=== PATIENT | female | born 1970 | race Caucasian/White ===

== ENCOUNTER 2016-07-01 08:57 | Emergency (ER) | payer OTHER ==
[~2016-07-01] VITALS: Ht 162.6 cm; Wt 112.0 kg
[~2016-07-01 08:57] MED LIST: ADDE5CAP PO; BUSPIRONE HCL; CELE100C PO; CELEBREX; CETI10CH PO; FERR28TA PO; FLON0.054; GABA300C3 PO; HYDR-727 PO; HYDR10T PO; HYDR12.55 PO; K-TA1TAB PO; LISI10TA4 PO; LISIPOW PO; LYRI100C10 PO; MAGN400T2 PO; METF1000 PO; METFORMIN PO; MIRA3350 PO; MULTLIQ7 PO; NEXI20CA PO; PERC5TAB6 PO; SERO1TAB PO; SEROQUEL; TIZA4CAP3 PO; TIZANIDINE HCL; VITA50003 PO; ZOFR20TA PO
[2016-07-01] MEDS ORDERED: SERO1TAB3 PO (09:25)
[2016-07-01] MEDS ORDERED: RANI75TA9 PO (09:25)
[2016-07-01] MEDS ORDERED: NEXI20CA PO (09:25)
[2016-07-01] MEDS ORDERED: LEFL1TAB4 PO (09:25)
[2016-07-01] MEDS ORDERED: MIRA3350 PO (09:25)
[2016-07-01] MEDS ORDERED: CEFTAROLINE FOSAMIL 600 MG in D5W MINI-BAG PLUS 50 ML IV ONE (09:45)
[2016-07-01 10:14] LABS: BASO % 0.4 % (0.0-1.0); EOS # 0.4 K/mm3 (0.0-0.50); EOS % 3.3 % (0.0-3.0); LARGE UNSTAINED CELL # 0.1 K/mm3 (0.0-0.4); LARGE UNSTAINED CELL % 0.9 % (0.0-4.0); LYMPH # 1.5 K/mm3 (1.5-4.5); LYMPH % 12.3 % (24.0-44.0); MEAN CORPUSCULAR HEMOGLOBIN 32.5 pg (27.0-33.0); MEAN CORPUSCULAR VOLUME 92.9 fl (80.0-96.0); MONO # 0.5 K/mm3 (0.0-0.8); MONO % 4.8 % (0.0-5.0); NEUTROPHILS # 8.8 K/mm3 (1.8-7.7); NEUTROPHILS % 78.3 % (36.0-66.0); PLATELET COUNT, AUTOMATED 249 k/mm3 (150-450); RED CELL DISTRIBUTION WIDTH 11.8 % (11.5-14.5); WHITE BLOOD COUNT 11.2 K/mm3 (4.0-10.0)
[2016-07-01 10:40] LABS: ANION GAP 11 MEQ/L (8-16); BLOOD UREA NITROGEN 14 MG/DL (7-18); CALCIUM LEVEL 8.7 MG/DL (8.5-10.1); CARBON DIOXIDE LEVEL 25 MEQ/L (21-32); CHLORIDE LEVEL 102 MEQ/L (98-107); CREATININE FOR GFR 0.94 MG/DL (0.55-1.02); GLOMERULAR FILTRATION RATE > 60.0 (>58); GLUCOSE, FASTING 228 MG/DL (70-105); POTASSIUM SERUM 3.8 MEQ/L (3.5-5.1); SODIUM LEVEL 138 MEQ/L (136-145)
[2016-07-01 10:41] LABS: ERYTHROCYTE SEDIMENTATION RATE 41 mm/hr (0-20)
[2016-07-01] MEDS ORDERED: BACT800T5 PO (11:20)
[2016-07-01] MEDS ORDERED: KEFL500C7 PO (11:20)
[2016-07-01 11:28] VITALS: BP 123/82
[2016-07-02] MEDS ORDERED: LYRI100C10 PO (14:36)
[2016-07-02] MEDS ORDERED: PRED20TA PO (16:29)
== END 2016-07-01 11:34 | disposition home or self-care (01) ==
LOC: M ED 09:52
DX: L03.211 Cellulitis of face (principal); M32.9 Systemic lupus erythematosus, unspecified; Z79.899 Other long term (current) drug therapy; Z91.018 Allergy to other foods; Z88.8 Allergy status to other drugs, medicaments and biological substances

== ENCOUNTER 2016-07-02 14:26 | Emergency (ER) | payer OTHER ==
[~2016-07-02] VITALS: Ht 162.6 cm; Wt 112.0 kg
[~2016-07-02 14:26] MED LIST changes: +BACT800T5 PO; +KEFL500C7 PO; +LEFL1TAB4 PO; +RANI75TA9 PO; +SERO1TAB3 PO
[2016-07-02] MEDS ORDERED: LYRI100C10 PO (14:36)
[2016-07-02] MEDS ORDERED: predniSONE 20 MG TAB PO ONE (15:30)
[2016-07-02 15:42] LABS: BASO % 0.4 % (0.0-1.0); EOS # 0.3 K/mm3 (0.0-0.50); LARGE UNSTAINED CELL # 0.2 K/mm3 (0.0-0.4); LARGE UNSTAINED CELL % 2.1 % (0.0-4.0); LYMPH # 2.4 K/mm3 (1.5-4.5); MEAN CORPUSCULAR HEMOGLOBIN 31.4 pg (27.0-33.0); MEAN CORPUSCULAR HGB CONC 34.1 g/dl (32.0-36.5); MEAN CORPUSCULAR VOLUME 91.9 fl (80.0-96.0); MONO # 0.6 K/mm3 (0.0-0.8); MONO % 6.1 % (0.0-5.0); NEUTROPHILS # 5.6 K/mm3 (1.8-7.7); NEUTROPHILS % 62.4 % (36.0-66.0); PLATELET COUNT, AUTOMATED 267 k/mm3 (150-450); RED CELL DISTRIBUTION WIDTH 11.6 % (11.5-14.5)
[2016-07-02 16:14] LABS: ERYTHROCYTE SEDIMENTATION RATE 50 mm/hr (0-20)
[2016-07-02] MEDS ORDERED: PRED20TA PO (16:29)
[2016-07-02 16:38] VITALS: BP 121/74
== END 2016-07-02 17:01 | disposition home or self-care (01) ==
LOC: M ED 15:26
DX: R21 Rash and other nonspecific skin eruption (principal); L03.211 Cellulitis of face; Z79.899 Other long term (current) drug therapy; Z79.1 Long term (current) use of non-steroidal anti-inflammatories (NSAID); Z79.2 Long term (current) use of antibiotics

== ENCOUNTER 2017-01-19 15:19 | Emergency (ER) | payer OTHER ==
[~2017-01-19] VITALS: Ht 162.6 cm; Wt 113.6 kg
[2017-01-19 15:19] VITALS: BP 128/83
[~2017-01-19 15:19] MED LIST changes: +GABA-282 PO; -GABA300C3 PO; +HYDR-643 PO; -HYDR10T PO; +KEFL500C17 PO; -KEFL500C7 PO; -LYRI100C10 PO; -METF1000 PO; +METF10004 PO; +PERC5TAB12 PO; -PERC5TAB6 PO; +PRED20TA PO; +PREG100CA PO; +VITA1CAP40 PO; -VITA50003 PO
[2017-01-19] MEDS ORDERED: SERO1TAB PO (15:30)
[2017-01-19] MEDS ORDERED: GLYB25TA PO (15:30)
[2017-01-19] MEDS ORDERED: LEFL1TAB4 PO (15:30)
[2017-01-19] MEDS ORDERED: BACL10TA2 PO (15:30)
[2017-01-19] MEDS ORDERED: PRED20TA PO (17:27)
[2017-01-19] MEDS ORDERED: AUGM875T28 PO (17:27)
== END 2017-01-19 18:00 | disposition home or self-care (01) ==
LOC: M ED 15:19
DX: K11.21 Acute sialoadenitis (principal); K02.9 Dental caries, unspecified; M32.9 Systemic lupus erythematosus, unspecified

== ENCOUNTER → 2017-04-12 | Outpatient (REF) | payer OTHER ==
[~2017-04-12] MED LIST changes: +AUGM875T28 PO; +BACL10TA2 PO; +GLYB25TA PO
== END ==
LOC: M SFHCLERA 12:31
PROVIDERS: ATTEND Nurse Practitioner Family
DX: J02.9 Acute pharyngitis, unspecified (principal)

== ENCOUNTER → 2017-05-13 | Outpatient (CLI) | payer OTHER | LOC: M RAD 15:48 | DX: R19.7 Diarrhea, unspecified (principal); R14.0 Abdominal distension (gaseous); R10.84 Generalized abdominal pain | CPT/HCPCS: 74021 ==

== ENCOUNTER → 2017-05-15 | Outpatient (CLI) | payer OTHER ==
[2017-05-15 14:53] LABS: BLOOD UREA NITROGEN 17 MG/DL (7-18)
[2017-05-15 14:53] LABS: CREATININE FOR GFR 0.97 MG/DL (0.55-1.02); GLOMERULAR FILTRATION RATE > 60.0 (>58)
== END ==
LOC: M LAB 13:40
DX: R10.84 Generalized abdominal pain (principal)
CPT/HCPCS: 82565

== ENCOUNTER → 2017-05-15 | Outpatient (REF) | payer OTHER | LOC: M LAB REF 14:17 | DX: R19.7 Diarrhea, unspecified (principal) ==

== ENCOUNTER → 2017-05-18 | Outpatient (CLI) | payer OTHER ==
[~2017-05-18] MED LIST changes: -ADDE5CAP PO; -AUGM875T28 PO; -BACL10TA2 PO; -BACT800T5 PO; -BUSPIRONE HCL; -CELE100C PO; -CELEBREX; -CETI10CH PO; -FERR28TA PO; -FLON0.054; -GABA-282 PO; +GLUCAGON FOR INJ 1 MG VIAL (J1610) As Ordered; -GLYB25TA PO; -HYDR-643 PO; -HYDR-727 PO; -HYDR12.55 PO; +ISOVUE-370 76% 100ML VIAL (Q9967) As Ordered; -K-TA1TAB PO; -KEFL500C17 PO; -LEFL1TAB4 PO; -LISI10TA4 PO; -LISIPOW PO; -MAGN400T2 PO; -METF10004 PO; -METFORMIN PO; -MIRA3350 PO; -MULTLIQ7 PO; -NEXI20CA PO; -PERC5TAB12 PO; -PRED20TA PO; -PREG100CA PO; -RANI75TA9 PO; -SERO1TAB PO; -SERO1TAB3 PO; -SEROQUEL; -TIZA4CAP3 PO; -TIZANIDINE HCL; -VITA1CAP40 PO; +VoLumen 0.1% SUSPENSION 450ML BOTTLE As Ordered; -ZOFR20TA PO
== END ==
LOC: M RAD 13:14
DX: R93.3 Abnormal findings on diagnostic imaging of other parts of digestive tract (principal); R10.84 Generalized abdominal pain; R19.7 Diarrhea, unspecified

== ENCOUNTER → 2017-05-31 | Outpatient (CLI) | payer OTHER | LOC: M RAD 14:26 | DX: R19.7 Diarrhea, unspecified (principal) ==

== ENCOUNTER 2017-06-26 08:40 | Day surgery (SDC) | payer OTHER ==
[2017-06-26] MEDS: NS 1,000 ML IV (10:19)
[2017-06-26] MEDS ORDERED: LIDOCAINE W/EPINEPHRINE 1% 20ML VIAL As Ordered (11:09)
[2017-06-26] MEDS ORDERED: LIDOCAINE 2% INJ 100 MG/5 ML SDV (FOR ANES.) As Ordered ×2 (11:36)
[2017-06-26] MEDS ORDERED: ONDANSETRON 4MG/2ML VIAL (J2405) As Ordered (11:36)
[2017-06-26] MEDS ORDERED: PROPOFOL 200 MG/20 ML VIAL As Ordered ×2 (11:36)
== END 2017-06-26 12:03 | disposition home or self-care (01) ==
LOC: M OPP 08:40
DX: R10.84 Generalized abdominal pain (principal); K59.00 Constipation, unspecified; R19.7 Diarrhea, unspecified; K57.30 Diverticulosis of large intestine without perforation or abscess without bleeding; K64.8 Other hemorrhoids; R11.2 Nausea with vomiting, unspecified; Z98.0 Intestinal bypass and anastomosis status; I10 Essential (primary) hypertension; E78.5 Hyperlipidemia, unspecified; E11.9 Type 2 diabetes mellitus without complications; K21.9 Gastro-esophageal reflux disease without esophagitis; R12 Heartburn; D64.9 Anemia, unspecified; Z86.14 Personal history of Methicillin resistant Staphylococcus aureus infection; Z22.322 Carrier or suspected carrier of Methicillin resistant Staphylococcus aureus; M19.90 Unspecified osteoarthritis, unspecified site; M79.7 Fibromyalgia; M32.9 Systemic lupus erythematosus, unspecified; F41.9 Anxiety disorder, unspecified; F32.9 Major depressive disorder, single episode, unspecified; G43.909 Migraine, unspecified, not intractable, without status migrainosus; J45.909 Unspecified asthma, uncomplicated; E66.9 Obesity, unspecified; L71.9 Rosacea, unspecified; Z98.84 Bariatric surgery status; Z88.8 Allergy status to other drugs, medicaments and biological substances; Z91.018 Allergy to other foods; Z79.899 Other long term (current) drug therapy; Z79.84 Long term (current) use of oral hypoglycemic drugs
CPT/HCPCS: 45380

== ENCOUNTER → 2017-09-15 | Outpatient (CLI) | payer OTHER ==
[2017-09-15 11:11] LABS: BASO # 0.1 10^3/uL (0.0-0.2); BASO % 0.8 % (0.0-1.0); EOS # 0.2 10^3/uL (0.0-0.50); EOS % 2.4 % (0.0-3.0); HEMATOCRIT 40.5 % (36.0-47.0); HEMOGLOBIN 13.3 g/dl (12.0-15.5); IMMATURE GRANULOCYTE % 0.7 % (0-3.0); LYMPH # 2.1 10^3/uL (1.5-4.5); LYMPH % 29.2 % (24.0-44.0); MEAN CORPUSCULAR HEMOGLOBIN 31.8 pg (27.0-33.0); MEAN CORPUSCULAR HGB CONC 32.8 g/dl (32.0-36.5); MEAN CORPUSCULAR VOLUME 96.9 fl (80.0-96.0); MONO # 0.6 10^3/uL (0.0-0.8); MONO % 7.8 % (0.0-5.0); NEUTROPHILS # 4.3 10^3/uL (1.8-7.7); NEUTROPHILS % 59.1 % (36.0-66.0); PLATELET COUNT, AUTOMATED 221 10^3/uL (150-450); RED BLOOD COUNT 4.18 10^6/uL (4.00-5.40); RED CELL DISTRIBUTION WIDTH 12.2 % (11.5-14.5); WHITE BLOOD COUNT 7.2 10^3/uL (4.0-10.0)
[2017-09-15 12:00] LABS: ALBUMIN 3.1 GM/DL (3.2-5.2); ALBUMIN/GLOBULIN RATIO 0.97 (1.00-1.93); ALKALINE PHOSPHATASE 110 U/L (45-117); ALT/SGPT 49 U/L (12-78); ANION GAP 8 MEQ/L (8-16); AST/SGOT 20 U/L (7-37); BILIRUBIN,TOTAL 0.7 MG/DL (0.2-1.0); BLOOD UREA NITROGEN 10 MG/DL (7-18); CALCIUM LEVEL 8.3 MG/DL (8.5-10.1); CARBON DIOXIDE LEVEL 25 MEQ/L (21-32); CHLORIDE LEVEL 107 MEQ/L (98-107); CREATININE FOR GFR 0.88 MG/DL (0.55-1.30); FREE T4 0.85 NG/DL (0.76-1.46); GLOMERULAR FILTRATION RATE > 60.0 (>58); GLUCOSE, FASTING 285 MG/DL (70-100); POTASSIUM SERUM 4.3 MEQ/L (3.5-5.1); SODIUM LEVEL 140 MEQ/L (136-145); TOTAL PROTEIN 6.3 GM/DL (6.4-8.2)
[2017-09-17 00:06] LABS: TISSUE TRANSGLUTAMINASE IgA <2 U/mL (0-3)
== END ==
LOC: M LAB 10:48
DX: R19.7 Diarrhea, unspecified (principal); R10.84 Generalized abdominal pain
CPT/HCPCS: 84443

== ENCOUNTER → 2017-11-11 | Outpatient (REF) | LOC: M SMT 14:40 | DX: Z02.71 Encounter for disability determination (principal) ==

== ENCOUNTER 2017-11-19 14:58 | Emergency (ER) | payer OTHER ==
[2017-11-19 15:30] LABS: BASO # 0.1 10^3/uL (0.0-0.2); BASO % 0.7 % (0.0-1.0); EOS # 0.2 10^3/uL (0.0-0.50); EOS % 2.2 % (0.0-3.0); HEMATOCRIT 42.3 % (36.0-47.0); HEMOGLOBIN 14.2 g/dl (12.0-15.5); IMMATURE GRANULOCYTE % 0.4 % (0-3.0); LYMPH # 3.3 10^3/uL (1.5-4.5); LYMPH % 40.7 % (24.0-44.0); MEAN CORPUSCULAR HEMOGLOBIN 32.2 pg (27.0-33.0); MEAN CORPUSCULAR HGB CONC 33.6 g/dl (32.0-36.5); MEAN CORPUSCULAR VOLUME 95.9 fl (80.0-96.0); MONO # 0.7 10^3/uL (0.0-0.8); MONO % 8.2 % (0.0-5.0); NEUTROPHILS # 3.9 10^3/uL (1.8-7.7); NEUTROPHILS % 47.8 % (36.0-66.0); PLATELET COUNT, AUTOMATED 264 10^3/uL (150-450); RED BLOOD COUNT 4.41 10^6/uL (4.00-5.40); RED CELL DISTRIBUTION WIDTH 11.7 % (11.5-14.5); WHITE BLOOD COUNT 8.1 10^3/uL (4.0-10.0)
[2017-11-19] MEDS: diazePAM 10 MG TAB PO (16:28)
[2017-11-19] MEDS: MORPHINE 2 MG/ML 1ML SYRINGE (J2270) IV (16:28)
[2017-11-19 16:29] LABS: ANION GAP 7 MEQ/L (8-16); BLOOD UREA NITROGEN 14 MG/DL (7-18); CALCIUM LEVEL 8.8 MG/DL (8.5-10.1); CARBON DIOXIDE LEVEL 27 MEQ/L (21-32); CHLORIDE LEVEL 108 MEQ/L (98-107); CK-MB VALUE MASS 1.2 NG/ML (<3.6); CPK CREATINE PHOSPHOKINASE 59 U/L (26-192); CREATININE FOR GFR 0.69 MG/DL (0.55-1.30); GLOMERULAR FILTRATION RATE > 60.0 (>58); GLUCOSE, FASTING 106 MG/DL (70-100); MB/CK RELATIVE INDEX 2.03 (< OR =4); POTASSIUM SERUM 4.6 MEQ/L (3.5-5.1); SODIUM LEVEL 142 MEQ/L (136-145); TROPONIN I < 0.02 NG/ML (< 0.10)
[2017-11-19 16:35] LABS: MAGNESIUM LEVEL 2.1 MG/DL (1.8-2.4)
== END 2017-11-19 17:30 | disposition home or self-care (01) ==
LOC: M ED 14:58
DX: I49.9 Cardiac arrhythmia, unspecified (principal); G89.29 Other chronic pain; M54.9 Dorsalgia, unspecified; M79.7 Fibromyalgia; M32.9 Systemic lupus erythematosus, unspecified; E11.9 Type 2 diabetes mellitus without complications; Z82.49 Family history of ischemic heart disease and other diseases of the circulatory system; Z79.899 Other long term (current) drug therapy; Z91.018 Allergy to other foods; Z88.8 Allergy status to other drugs, medicaments and biological substances
CPT/HCPCS: J2270

== ENCOUNTER → 2018-02-25 | Outpatient (CLI) | payer OTHER ==
[~2018-02-25] MED LIST changes: -GLUCAGON FOR INJ 1 MG VIAL (J1610) As Ordered; -VoLumen 0.1% SUSPENSION 450ML BOTTLE As Ordered
== END ==
LOC: M RAD 17:31
DX: R10.12 Left upper quadrant pain (principal); Z98.84 Bariatric surgery status; K76.0 Fatty (change of) liver, not elsewhere classified; K44.9 Diaphragmatic hernia without obstruction or gangrene; Z90.710 Acquired absence of both cervix and uterus; Z90.49 Acquired absence of other specified parts of digestive tract
CPT/HCPCS: Q9967

== ENCOUNTER → 2018-10-19 | Outpatient (REF) | payer OTHER ==
[~2018-10-19] MED LIST changes: +ADDE5CAP PO; +ALBU17IN2 INH; +AUGM875T28 PO; +BACL10TA2 PO; +BACT800T5 PO; +BUSPIRONE HCL; +CALCTAB75 PO; +CELE100C PO; +CELEBREX; +CETI10CH PO; +CETI10TA PO; +CYAN1000VL IM; +DITR5TAB PO; +DULO30CA9 PO; +FERR28TA PO; +FISH100049 PO; +FLON0.054; +GABA-843 PO; +GLYB25TA PO; +GLYB3TA; +HYDR-643 PO; +HYDR-727 PO; +HYDR12.55 PO; +HYDR200T3; +IRON65TA PO; -ISOVUE-370 76% 100ML VIAL (Q9967) As Ordered; +JANU50TA8 PO; +JARD1TAB PO; +K-TA1TAB PO; +KEFL500C17 PO; +LEFL1TAB4 PO; +LIDO5DIS41 TD; +LIPI20TA PO; +LISI10TA4 PO; +LISIPOW PO; +LOPE2CA PO; +MAGN400T2 PO; +MAXA10TA14 PO; +METF10004 PO; +METFORMIN PO; +METR0.7533 TOP; +MIRA3350 PO; +MUCINEX; +MULTLIQ7 PO; +NEXI20CA PO; +PANT40TA3 PO; +PERC10TA26 PO; +PERC5TAB12 PO; +PRED20TA PO; +PREG100CA PO; +PRENTAB55 PO; +RANI75TA15 PO; +SERO1TAB PO; +SERO1TAB3 PO; +SEROQUEL; +TIZA4CAP PO; +TIZANIDINE HCL; +VALI5TAB PO; +VITA1TAB27 PO; +VITA50005 PO; +ZOFR4TAB16 PO
== END ==
LOC: M SFHCLERA 16:17
PROVIDERS: ATTEND Nurse Practitioner Family
DX: J02.9 Acute pharyngitis, unspecified (principal)

== ENCOUNTER → 2019-04-10 | Outpatient (REF) | payer OTHER ==
[~2019-04-10] MED LIST changes: -ALBU17IN2 INH; +PROV108A INH
== END ==
LOC: M SFHCLERA 14:06
PROVIDERS: ATTEND Physician Assistant
DX: J01.00 Acute maxillary sinusitis, unspecified (principal)

== ENCOUNTER 2019-11-13 11:12 | Inpatient (IN) | payer OTHER ==
[~2019-11-13 11:12] MED LIST changes: -GLYB3TA; +GLYB3TAB2; +LEVALBUTEROL 1.25 MG/0.5 ML CONCENTRATE NEB ONE; +PANT40TA29 PO; -PANT40TA3 PO
[2019-11-13] MEDS ORDERED: DOXYCYCLINE HYCLATE 100MG/10ML VIAL ONE (13:07)
[2019-11-13] MEDS ORDERED: dexameTHASONE 20MG/5ML VIAL (J1100 PER 1MG) ONE (13:07)
[2019-11-13] MEDS ORDERED: IPRATROPIUM 0.5MG/ALBUTEROL 2.5MG INH SOL UD 3ML (DUONEB) ONE (13:07)
[2019-11-13] MEDS ORDERED: cefTRIAXone SOD 2 GM VIAL (J0696 PER 250MG) ONE (13:07)
[2019-11-13] MEDS ORDERED: PERCOCET 5MG/325MG TAB ONE ×2 (15:30→21:56)
[2019-11-13] MEDS ORDERED: LACTOBACILLUS ACIDOPHILUS CAP (BACID) ONE (21:56)
[2019-11-13] MEDS ORDERED: methylPREDNISolone 125MG 2ML VIAL ONE (21:56)
[2019-11-13] MEDS ORDERED: HumaLOG INSULIN (NovoLOG) PER UNIT ONE (21:56)
[2019-11-13] MEDS ORDERED: LEVEMIR (INSULIN DETEMIR) 1 UNITS/0.01ML ONE (21:56)
[2019-11-13] MEDS ORDERED: VANCOMYCIN 1000MG/20ML VIAL ONE (21:56)
[2019-11-14] MEDS ORDERED: ZOSYN 3.375GM VIAL (J2543) ONE ×4 (00:55→17:17)
[2019-11-14] MEDS ORDERED: DOXYCYCLINE HYCLATE 100MG/10ML VIAL ONE ×3 (00:55→16:12)
[2019-11-14] MEDS ORDERED: VANCOMYCIN 1000MG/20ML VIAL ONE ×3 (05:35→22:22)
[2019-11-14] MEDS ORDERED: methylPREDNISolone 40MG 1ML VIAL ONE ×2 (08:24→22:22)
[2019-11-14] MEDS ORDERED: LEVEMIR (INSULIN DETEMIR) 1 UNITS/0.01ML ONE (08:24)
[2019-11-14] MEDS ORDERED: PERCOCET 5MG/325MG TAB ONE ×3 (08:24→22:22)
[2019-11-14] MEDS ORDERED: HumaLOG INSULIN (NovoLOG) PER UNIT ONE ×4 (08:24→22:22)
[2019-11-14] MEDS ORDERED: LACTOBACILLUS ACIDOPHILUS CAP (BACID) ONE ×2 (08:24→22:22)
[2019-11-14] MEDS ORDERED: FILGRASTIM 300 MCG/0.5 ML SYRINGE (J1442 PER 1MCG) ONE (09:00)
[2019-11-14] MEDS ORDERED: LEVALBUTEROL 1.25 MG/0.5 ML CONCENTRATE NEB ONE (09:00)
[2019-11-14] MEDS ORDERED: BACLOFEN 10 MG TAB ONE ×2 (13:30→22:22)
[2019-11-14] MEDS ORDERED: PREGABALIN 100 MG CAP (LYRICA) ONE ×2 (13:30→22:22)
[2019-11-14] MEDS ORDERED: QUEtiapine FUMARATE 50 MG TAB ONE ×2 (13:30→22:22)
[2019-11-14] MEDS ORDERED: oxyBUTYnin 5 MG TAB ONE (22:22)
[2019-11-14] MEDS ORDERED: FERROUS SULFATE 325MG TAB ONE (22:22)
[2019-11-14] MEDS ORDERED: ROSUVASTATIN 10 MG TAB (CRESTOR) ONE (22:22)
[2019-11-15] MEDS ORDERED: ZOSYN 3.375GM VIAL (J2543) ONE ×5 (01:13→17:24)
[2019-11-15] MEDS ORDERED: DOXYCYCLINE HYCLATE 100MG/10ML VIAL ONE ×2 (01:13→12:13)
[2019-11-15] MEDS ORDERED: VANCOMYCIN 1000MG/20ML VIAL ONE (05:36)
[2019-11-15] MEDS ORDERED: PREGABALIN 100 MG CAP (LYRICA) ONE ×3 (05:36→14:53)
[2019-11-15] MEDS ORDERED: HumaLOG INSULIN (NovoLOG) PER UNIT ONE ×4 (07:51→17:24)
[2019-11-15] MEDS ORDERED: FERROUS SULFATE 325MG TAB ONE ×2 (07:51→13:01)
[2019-11-15] MEDS ORDERED: LACTOBACILLUS ACIDOPHILUS CAP (BACID) ONE ×4 (07:51→17:24)
[2019-11-15] MEDS ORDERED: CelecoXIB (CeleBREX) 100 MG CAP ONE (07:51)
[2019-11-15] MEDS ORDERED: PANTOPRAZOLE 40MG TAB (PROTONIX) ONE (07:51)
[2019-11-15] MEDS ORDERED: PERCOCET 5MG/325MG TAB ONE ×3 (07:51→14:53)
[2019-11-15] MEDS ORDERED: CETIRIZINE (ZyrTEC) 10 MG TAB ONE (07:51)
[2019-11-15] MEDS ORDERED: LEVEMIR (INSULIN DETEMIR) 1 UNITS/0.01ML ONE ×2 (07:51→13:01)
[2019-11-15] MEDS ORDERED: methylPREDNISolone 40MG 1ML VIAL ONE ×2 (07:51→13:01)
[2019-11-15] MEDS ORDERED: BACLOFEN 10 MG TAB ONE ×2 (07:51→13:01)
[2019-11-15] MEDS ORDERED: MONTELUKAST 10 MG TAB ONE (07:51)
[2019-11-15] MEDS ORDERED: DULoxetine 30 MG CAP (CYMBALTA) ONE (07:51)
[2019-11-15] MEDS ORDERED: LEVALBUTEROL 1.25 MG/0.5 ML CONCENTRATE NEB ONE (09:00)
[2019-11-15] MEDS ORDERED: LIDOCAINE 1% MDV 20ML VIAL ONE (10:51)
[2019-11-15] MEDS ORDERED: ROSUVASTATIN 10 MG TAB (CRESTOR) ONE (13:01)
[2019-11-15] MEDS ORDERED: QUEtiapine FUMARATE 50 MG TAB ONE (13:01)
[2019-11-15] MEDS ORDERED: oxyBUTYnin 5 MG TAB ONE (13:01)
[2019-11-16] MEDS ORDERED: DOXYCYCLINE HYCLATE 100MG/10ML VIAL ONE ×2 (00:46→12:57)
[2019-11-16] MEDS ORDERED: PERCOCET 5MG/325MG TAB ONE ×3 (06:04→20:08)
[2019-11-16] MEDS ORDERED: PREGABALIN 100 MG CAP (LYRICA) ONE ×3 (06:04→22:00)
[2019-11-16] MEDS ORDERED: ZOSYN 3.375GM VIAL (J2543) ONE ×2 (06:04→12:46)
[2019-11-16] MEDS ORDERED: FERROUS SULFATE 325MG TAB ONE ×2 (08:21→22:00)
[2019-11-16] MEDS ORDERED: CelecoXIB (CeleBREX) 100 MG CAP ONE (08:21)
[2019-11-16] MEDS ORDERED: LACTOBACILLUS ACIDOPHILUS CAP (BACID) ONE ×4 (08:21→22:00)
[2019-11-16] MEDS ORDERED: MONTELUKAST 10 MG TAB ONE (08:21)
[2019-11-16] MEDS ORDERED: CYANOCOBALAMIN 500 MCG TAB ONE (08:21)
[2019-11-16] MEDS ORDERED: methylPREDNISolone 40MG 1ML VIAL ONE (08:21)
[2019-11-16] MEDS ORDERED: lisinopriL 5 MG TAB ONE (08:21)
[2019-11-16] MEDS ORDERED: BACLOFEN 10 MG TAB ONE ×2 (08:21→22:00)
[2019-11-16] MEDS ORDERED: CETIRIZINE (ZyrTEC) 10 MG TAB ONE (08:21)
[2019-11-16] MEDS ORDERED: PANTOPRAZOLE 40MG TAB (PROTONIX) ONE (08:21)
[2019-11-16] MEDS ORDERED: HumaLOG INSULIN (NovoLOG) PER UNIT ONE ×4 (08:21→22:00)
[2019-11-16] MEDS ORDERED: DULoxetine 30 MG CAP (CYMBALTA) ONE (08:21)
[2019-11-16] MEDS ORDERED: LEVALBUTEROL 1.25 MG/0.5 ML CONCENTRATE NEB ONE (09:00)
[2019-11-16] MEDS ORDERED: MOXIFLOXACIN 400 MG TAB ONE (14:29)
[2019-11-16] MEDS ORDERED: predniSONE 20 MG TAB ONE (17:44)
[2019-11-16] MEDS ORDERED: ROSUVASTATIN 10 MG TAB (CRESTOR) ONE (22:00)
[2019-11-16] MEDS ORDERED: QUEtiapine FUMARATE 50 MG TAB ONE (22:00)
[2019-11-16] MEDS ORDERED: oxyBUTYnin 5 MG TAB ONE (22:00)
[2019-11-16] MEDS ORDERED: METOPROLOL SUCC *XL* 25MG TAB (TopROL *XL*) ONE (22:00)
[2019-11-17] MEDS ORDERED: DOXYCYCLINE HYCLATE 100MG/10ML VIAL ONE (01:02)
[2019-11-17] MEDS ORDERED: CALCIUM CARBONATE 500 MG CHEW U/D ONE (01:02)
[2019-11-17] MEDS ORDERED: PREGABALIN 100 MG CAP (LYRICA) ONE (05:52)
[2019-11-17] MEDS ORDERED: PERCOCET 5MG/325MG TAB ONE (05:52)
[2019-11-17] MEDS ORDERED: CYANOCOBALAMIN 500 MCG TAB ONE (08:20)
[2019-11-17] MEDS ORDERED: CelecoXIB (CeleBREX) 100 MG CAP ONE (08:20)
[2019-11-17] MEDS ORDERED: MONTELUKAST 10 MG TAB ONE (08:20)
[2019-11-17] MEDS ORDERED: FERROUS SULFATE 325MG TAB ONE (08:20)
[2019-11-17] MEDS ORDERED: HumaLOG INSULIN (NovoLOG) PER UNIT ONE (08:20)
[2019-11-17] MEDS ORDERED: CETIRIZINE (ZyrTEC) 10 MG TAB ONE (08:20)
[2019-11-17] MEDS ORDERED: BACLOFEN 10 MG TAB ONE (08:20)
[2019-11-17] MEDS ORDERED: LEVEMIR (INSULIN DETEMIR) 1 UNITS/0.01ML ONE (08:20)
[2019-11-17] MEDS ORDERED: DULoxetine 30 MG CAP (CYMBALTA) ONE (08:20)
[2019-11-17] MEDS ORDERED: PANTOPRAZOLE 40MG TAB (PROTONIX) ONE (08:20)
[2019-11-17] MEDS ORDERED: lisinopriL 5 MG TAB ONE (08:20)
[2019-11-17] MEDS ORDERED: predniSONE 20 MG TAB ONE (08:20)
[2019-11-17] MEDS ORDERED: LACTOBACILLUS ACIDOPHILUS CAP (BACID) ONE (08:20)
[2019-11-17] MEDS ORDERED: FLUTICASONE PROP 0.05% NASAL SPRAY 16 GM (FLONASE) ONE (09:00)
[2019-11-17] MEDS ORDERED: LEVALBUTEROL 1.25 MG/0.5 ML CONCENTRATE NEB ONE (10:19)
[2019-12-18 11:19] LABS: ERYTHROCYTE SEDIMENTATION RATE 49 mm/hr (0-30)
[2019-12-20 14:12] LABS: ABG BASE EXCESS -7.7 (-2.0-2.0); ABG HCO3 15.3 MEQ/L (22.0-26.0); ABG O2 SATURATION 98.4 % (95.0-99.0); ABG PARTIAL PRESSURE CO2 25.7 mmHg (35.0-45.0); ABG PARTIAL PRESSURE O2 152.4 mmHg (75.0-100.0); ABG STANDARD HCO3 18.4 MEQ/L (22.0-26.0); ABG TOTAL CO2 16.1 MEQ/L (22.0-29.0); ABG pH (ARTERIAL) 7.392 UNITS (7.350-7.450)
[2019-12-20 14:20] LABS: BLOOD UREA NITROGEN 16 MG/DL (7-18); CALCIUM LEVEL 8.4 MG/DL (8.5-10.1); CARBON DIOXIDE LEVEL 24 MEQ/L (21-32); CHLORIDE LEVEL 107 MEQ/L (98-107); CREATININE FOR GFR 0.92 MG/DL (0.55-1.30); GLOMERULAR FILTRATION RATE > 60.0 (>51); GLUCOSE, FASTING 233 MG/DL (70-100); POTASSIUM SERUM 4.2 MEQ/L (3.5-5.1); SODIUM LEVEL 142 MEQ/L (136-145)
[2019-12-20 14:22] LABS: ALBUMIN 3.3 GM/DL (3.2-5.2); BILIRUBIN,DIRECT 0.4 MG/DL (0.0-0.2); BILIRUBIN,TOTAL 1.4 MG/DL (0.2-1.0); C REACTIVE PROTEIN QUANTITATIV 1.11 MG/DL (0.00-0.30); TOTAL PROTEIN 6.5 GM/DL (6.4-8.2)
[2019-12-21 14:09] LABS: HEMATOCRIT 40.4 % (36.0-47.0); HEMOGLOBIN 13.6 g/dl (12.0-15.5); LYMPHOCYTES 7 % (16-44); MEAN CORPUSCULAR HEMOGLOBIN 32.5 pg (27.0-33.0); MEAN CORPUSCULAR HGB CONC 33.7 g/dl (32.0-36.5); MEAN CORPUSCULAR VOLUME 96.7 fl (80.0-96.0); MONOCYTES 1 % (0-5); NEUTROPHILS 74 % (28-66); PLATELET COUNT, AUTOMATED 178 10^3/uL (150-450); RED BLOOD COUNT 4.18 10^6/uL (4.00-5.40); WHITE BLOOD COUNT 14.4 10^3/uL (4.0-10.0)
[2019-12-21 14:10] LABS: ANISOCYTOSIS 1+; PLATELET ESTIMATE NORMAL (NORMAL)
[2019-12-26 23:09] LABS: HEMATOCRIT 37.8 % (36.0-47.0); HEMOGLOBIN 12.4 g/dl (12.0-15.5); MEAN CORPUSCULAR HEMOGLOBIN 32.5 pg (27.0-33.0); MEAN CORPUSCULAR HGB CONC 32.8 g/dl (32.0-36.5); PLATELET COUNT, AUTOMATED 181 10^3/uL (150-450); RED BLOOD COUNT 3.82 10^6/uL (4.00-5.40); WHITE BLOOD COUNT 12.1 10^3/uL (4.0-10.0)
[2019-12-26 23:11] LABS: PLATELET ESTIMATE NORMAL (NORMAL)
[2019-12-27 09:53] LABS: BLOOD UREA NITROGEN 13 MG/DL (7-18); CALCIUM LEVEL 9.1 MG/DL (8.5-10.1); CARBON DIOXIDE LEVEL 25 MEQ/L (21-32); CHLORIDE LEVEL 105 MEQ/L (98-107); CHOLESTEROL LEVEL 87 MG/DL (<200); CHOLESTEROL RISK RATIO 1.5 (<5); CK-MB VALUE MASS < 1.0 NG/ML (<3.6); CPK CREATINE PHOSPHOKINASE 36 U/L (26-192); CREATININE FOR GFR 0.77 MG/DL (0.55-1.30); GLOMERULAR FILTRATION RATE > 60.0 (>51); GLUCOSE, FASTING 323 MG/DL (70-100); HDL CHOLESTEROL 59 MG/DL (>40); LDL CHOLESTEROL 14 MG/DL (<100); MAGNESIUM LEVEL 2.2 MG/DL (1.8-2.4); MB/CK RELATIVE INDEX 2.78 (< OR =4); NON-HDL-C 28 MG/DL; NT-PRO BNP 1192 PG/ML (<125); POTASSIUM SERUM 4.3 MEQ/L (3.5-5.1); SODIUM LEVEL 138 MEQ/L (136-145); THYROID STIMULATING HORMONE 0.149 uIU/ML (0.358-3.740); TRIGLYCERIDES LEVEL 68 MG/DL (<150)
[2019-12-29 18:29] LABS: ALBUMIN 2.7 GM/DL (3.2-5.2); ALT/SGPT 607 U/L (12-78); BILIRUBIN,TOTAL 1.1 MG/DL (0.2-1.0); BLOOD UREA NITROGEN 13 MG/DL (7-18); CARBON DIOXIDE LEVEL 26 MEQ/L (21-32); CHLORIDE LEVEL 108 MEQ/L (98-107); CREATININE FOR GFR 0.79 MG/DL (0.55-1.30); GLOMERULAR FILTRATION RATE > 60.0 (>51); GLUCOSE, FASTING 277 MG/DL (70-100); MAGNESIUM LEVEL 2.4 MG/DL (1.8-2.4); POTASSIUM SERUM 4.9 MEQ/L (3.5-5.1); SODIUM LEVEL 142 MEQ/L (136-145); TOTAL PROTEIN 5.9 GM/DL (6.4-8.2)
[2020-01-05 10:48] LABS: HEMATOCRIT 49.2 % (36.0-47.0); HEMOGLOBIN 16.4 g/dl (12.0-15.5); MEAN CORPUSCULAR HEMOGLOBIN 32.4 pg (27.0-33.0); MEAN CORPUSCULAR HGB CONC 33.3 g/dl (32.0-36.5); MEAN CORPUSCULAR VOLUME 97.2 fl (80.0-96.0); PLATELET COUNT, AUTOMATED 244 10^3/uL (150-450); RED BLOOD COUNT 5.06 10^6/uL (4.00-5.40); WHITE BLOOD COUNT 1.7 10^3/uL (4.0-10.0)
[2020-01-05 10:49] LABS: EOSINOPHILS 1 % (0-3); LYMPHOCYTES 48 % (16-44); MONOCYTES 1 % (0-5); NEUTROPHILS 31 % (28-66)
[2020-01-05 10:50] LABS: ATYPICAL LYMPH 3 % (0-5); METAMYELOCYTES 1 % (0-0); PLATELET CLUMPS SMALL AMT; PLATELET ESTIMATE NORMAL (NORMAL)
[2020-01-05 10:51] LABS: INR 0.97; PROTHROMBIN TIME 13.1 SECONDS (11.8-14.0)
[2020-01-05 23:12] LABS: HEMATOCRIT 39.9 % (36.0-47.0); HEMOGLOBIN 13.3 g/dl (12.0-15.5); MEAN CORPUSCULAR HEMOGLOBIN 33.1 pg (27.0-33.0); MEAN CORPUSCULAR HGB CONC 33.3 g/dl (32.0-36.5); MEAN CORPUSCULAR VOLUME 99.3 fl (80.0-96.0); PLATELET COUNT, AUTOMATED 220 10^3/uL (150-450); RED BLOOD COUNT 4.02 10^6/uL (4.00-5.40); WHITE BLOOD COUNT 12.8 10^3/uL (4.0-10.0)
--- NOTE | 2020-01-06 07:06 | ECGEPIP ---
SINUS TACHYCARDIA LAD SEE SCANNED DOWNTIME REPORT MTDD
[2020-01-07 14:44] LABS: HEMATOCRIT 40.9 % (36.0-47.0); HEMOGLOBIN 13.3 g/dl (12.0-15.5); MEAN CORPUSCULAR HEMOGLOBIN 32.2 pg (27.0-33.0); MEAN CORPUSCULAR HGB CONC 32.5 g/dl (32.0-36.5); PLATELET COUNT, AUTOMATED 228 10^3/uL (150-450); RED BLOOD COUNT 4.13 10^6/uL (4.00-5.40); WHITE BLOOD COUNT 7.7 10^3/uL (4.0-10.0)
[2020-01-08 23:44] LABS: COMPLEMENT C3 116 MG/DL (90-180); COMPLEMENT C4 26 MG/DL (10-40)
--- NOTE | 2020-01-09 09:47 | REP ---
CT OF THE CHEST WITHOUT CONTRAST: HISTORY: Multifocal pneumonia. TECHNIQUE: Axial noncontrast image from the thoracic inlet to the upper abdomen with coronal and sagittal reformations. FINDINGS: Moderate alveolar infiltrates involving the left upper lobe, lingula and left lower lobe along with mild right perihilar infiltrates compatible with multifocal pneumonia. Small left pleural effusion is appreciated along with minimal reactive adenopathy. Findings appear overall improved compared to prior examination. Further evaluation of the mediastinum demonstrates stable appearance to the thoracic aorta, pulmonary vasculature and heart/pericardium. The tracheobronchial tree is patent. Surrounding musculoskeletal structures are intact. No pneumothorax. IMPRESSION: Multifocal infiltrates (left greater than right). Findings appear improved compared to prior examination. Small residual left effusion and minimal reactive adenopathy. 1548 tkf MTDD
--- NOTE | 2020-01-09 09:48 | REP ---
PORTABLE CHEST X-RAY: SINGLE VIEW HISTORY: Shortness of breath. This report was delayed due to a malware attack on this facility. FINDINGS: There is an extensive infiltrate in the left perihilar and lower lobe region consistent with pneumonia. The heart is not enlarged. No infiltrate is seen on the right. Pleural angles are sharp. Monitoring electrodes are noted. IMPRESSION: Left perihilar and lower lobe infiltrate consistent with pneumonia. MTDD
--- NOTE | 2020-01-09 09:50 | REP ---
MIDLINE CATHETER INSERTION WITH SITE RITE: The procedure was performed under the direct supervision of Dr. Maldonado. The risks and benefits of the procedure were explained to the patient and informed consent was obtained. PROCEDURE: The right basilic vein was localized using ultrasound guidance. The skin was prepped and draped in a sterile fashion. 1% lidocaine was used as a local anesthetic. Using ultrasound guidance, the basilic vein was cannulated and a 0.018 guidewire was inserted. The needle was removed and a 4.5 Albanian dilator and peel-away sheath was inserted over the guidewire. A 4.5 Albanian single lumen catheter was left at a length of 16.5 cm. The dilator was removed and the catheter was inserted over the guidewire. The peel-away sheath was removed and the catheter was flushed with heparinized saline as per hospital protocol. The catheter was affixed to the skin and a sterile dressing was applied. The patient tolerated the procedure well and there were no immediate complications. After the appropriate amount of monitored convalescence, the patient was discharged from the department MTDD
--- NOTE | 2020-01-10 15:42 | REP ---
CT OF THE CHEST WITHOUT CONTRAST: HISTORY: Shortness of breath and chest pain. TECHNIQUE: Axial noncontrast images from the thoracic inlet to the upper abdomen with coronal and sagittal reformations. FINDINGS: Bilateral multifocal alveolar infiltrates primarily involving the left upper lobe, lingula and left lower lobe as well as the right upper lobe, right middle lobe and right lower lobe. No associated effusion or pneumothorax. Reactive mediastinal/hilar adenopathy noted. The tracheobronchial tree is relatively patent. Further evaluation of the mediastinum demonstrates relatively normal thoracic aorta, pulmonary vasculature and heart/pericardium. Limited upper abdomen demonstrates normal bilateral adrenal glands. Musculoskeletal structures demonstrate age related changes without acute osseous abnormality. IMPRESSION: Moderate to significant multifocal infiltrates compatible with pneumonia (left greater than right). MTDD
[2020-01-16 12:52] LABS: ANTI DS-DNA AB SEE SEPARATE REPORT; RNP ANTIBODY SEE SEPARATE REPORT UNITS; SMITHS ANTIBODY SEE SEPARATE REPORT UNITS
[2020-01-22 21:23] LABS: BLOOD UREA NITROGEN 17 MG/DL (7-18); CALCIUM LEVEL 9.2 MG/DL (8.5-10.1); CARBON DIOXIDE LEVEL 29 MEQ/L (21-32); CHLORIDE LEVEL 106 MEQ/L (98-107); CREATININE FOR GFR 0.72 MG/DL (0.55-1.30); GLOMERULAR FILTRATION RATE > 60.0 (>51); GLUCOSE, FASTING 269 MG/DL (70-100); MAGNESIUM LEVEL 2.2 MG/DL (1.8-2.4); POTASSIUM SERUM 4.9 MEQ/L (3.5-5.1); SODIUM LEVEL 142 MEQ/L (136-145)
[2020-02-01 13:37] LABS: URINE STREP PNEUMONIAE ANTIGEN SEE SEPARATE REPORT
[2020-02-01 13:38] LABS: LEGIONELLA ANTIGEN URINE SEE SEPARATE REPORT
[2020-02-08 09:01] LABS: ALBUMIN 2.6 GM/DL (3.2-5.2); ALT/SGPT 353 U/L (12-78); BILIRUBIN,TOTAL 0.6 MG/DL (0.2-1.0); BLOOD UREA NITROGEN 17 MG/DL (7-18); CALCIUM LEVEL 8.8 MG/DL (8.5-10.1); CARBON DIOXIDE LEVEL 29 MEQ/L (21-32); CHLORIDE LEVEL 107 MEQ/L (98-107); CREATININE FOR GFR 0.64 MG/DL (0.55-1.30); GLOMERULAR FILTRATION RATE > 60.0 (>51); GLUCOSE, FASTING 221 MG/DL (70-100); MAGNESIUM LEVEL 2.1 MG/DL (1.8-2.4); SODIUM LEVEL 143 MEQ/L (136-145); TOTAL PROTEIN 5.8 GM/DL (6.4-8.2)
== END 2019-11-17 10:20 | disposition home or self-care (01) | DRG 193 ==
LOC: M ED 11:12 → M ED INP 14:16
PROVIDERS: ADMIT Internal Medicine; ATTEND General Practice
PROC: 05HB33Z Insertion of Infusion Device into Right Basilic Vein, Percutaneous Approach (ICD-10-PCS; principal; 2019-11-15)
DX: J18.9 Pneumonia, unspecified organism (principal); J96.01 Acute respiratory failure with hypoxia; M79.7 Fibromyalgia; R19.7 Diarrhea, unspecified; D72.819 Decreased white blood cell count, unspecified; M54.9 Dorsalgia, unspecified; R74.0 Nonspecific elevation of levels of transaminase and lactic acid dehydrogenase [LDH]; E11.9 Type 2 diabetes mellitus without complications; I10 Essential (primary) hypertension; E53.8 Deficiency of other specified B group vitamins; M32.9 Systemic lupus erythematosus, unspecified; N32.81 Overactive bladder; Z98.84 Bariatric surgery status; Z79.899 Other long term (current) drug therapy; Z79.84 Long term (current) use of oral hypoglycemic drugs; Y95 Nosocomial condition; Z20.828 Contact with and (suspected) exposure to other viral communicable diseases

== ENCOUNTER 2019-11-25 14:04 | Inpatient (IN) | payer OTHER ==
[~2019-11-25 14:04] MED LIST changes: -LEVALBUTEROL 1.25 MG/0.5 ML CONCENTRATE NEB ONE
[2019-11-26] MEDS ORDERED: busPIRone 10 MG TAB As Ordered ONE (06:45)
[2019-11-26] MEDS ORDERED: BACLOFEN 10 MG TAB As Ordered ONE ×2 (06:45→20:46)
[2019-11-26] MEDS ORDERED: HumaLOG INSULIN (NovoLOG) PER UNIT As Ordered ONE ×4 (06:52→20:52)
[2019-11-26] MEDS ORDERED: PREGABALIN 100 MG CAP (LYRICA) As Ordered ONE ×2 (08:12→16:49)
[2019-11-26] MEDS ORDERED: oxyCODONE 5MG TAB As Ordered ONE ×4 (08:12→20:46)
[2019-11-26] MEDS ORDERED: MIRALAX *UNIT DOSE* 17GM PACKET As Ordered ONE (08:27)
[2019-11-26] MEDS ORDERED: CelecoXIB (CeleBREX) 100 MG CAP As Ordered ONE (08:27)
[2019-11-26] MEDS ORDERED: PANTOPRAZOLE 40MG TAB (PROTONIX) As Ordered ONE (08:27)
[2019-11-26] MEDS ORDERED: lisinopriL 5 MG TAB As Ordered ONE (08:28)
[2019-11-26] MEDS ORDERED: DULoxetine 30 MG CAP (CYMBALTA) As Ordered ONE (08:28)
[2019-11-26] MEDS ORDERED: ACYCLOVIR 500 MG/10 ML VIAL ONE (12:00)
[2019-11-26] MEDS ORDERED: oxyBUTYnin *DITROPAN XL* 5 MG TABCR As Ordered ONE (20:45)
[2019-11-26] MEDS ORDERED: RAMELTEON 8 MG TAB (ROZEREM) As Ordered ONE (20:46)
[2019-11-26] MEDS ORDERED: MONTELUKAST 10 MG TAB As Ordered ONE (20:46)
[2019-11-26] MEDS ORDERED: METOPROLOL SUCC *XL* 25MG TAB (TopROL *XL*) As Ordered ONE (20:47)
[2019-11-27] MEDS ORDERED: PREGABALIN 100 MG CAP (LYRICA) As Ordered ONE ×3 (00:13→16:59)
[2019-11-27] MEDS ORDERED: MIRALAX *UNIT DOSE* 17GM PACKET As Ordered ONE (09:00)
[2019-11-27] MEDS ORDERED: CelecoXIB (CeleBREX) 100 MG CAP As Ordered ONE (09:01)
[2019-11-27] MEDS ORDERED: oxyCODONE 5MG TAB As Ordered ONE ×4 (09:01→20:40)
[2019-11-27] MEDS ORDERED: DULoxetine 30 MG CAP (CYMBALTA) As Ordered ONE (09:02)
[2019-11-27] MEDS ORDERED: PANTOPRAZOLE 40MG TAB (PROTONIX) As Ordered ONE (09:02)
[2019-11-27] MEDS ORDERED: HumaLOG INSULIN (NovoLOG) PER UNIT As Ordered ONE ×4 (09:02→20:42)
[2019-11-27] MEDS ORDERED: lisinopriL 5 MG TAB As Ordered ONE (09:02)
[2019-11-27] MEDS ORDERED: busPIRone 10 MG TAB As Ordered ONE ×2 (12:42→16:59)
[2019-11-27] MEDS ORDERED: LEVEMIR (INSULIN DETEMIR) 1 UNITS/0.01ML As Ordered ONE (16:54)
[2019-11-27] MEDS ORDERED: BACLOFEN 10 MG TAB As Ordered ONE (20:40)
[2019-11-27] MEDS ORDERED: RAMELTEON 8 MG TAB (ROZEREM) As Ordered ONE (20:42)
[2019-11-27] MEDS ORDERED: oxyBUTYnin 5 MG TAB As Ordered ONE (20:42)
[2019-11-27] MEDS ORDERED: METOPROLOL SUCC *XL* 25MG TAB (TopROL *XL*) As Ordered ONE (20:42)
[2019-11-27] MEDS ORDERED: MONTELUKAST 10 MG TAB As Ordered ONE (20:42)
[2019-11-27] MEDS ORDERED: QUEtiapine FUMARATE 50 MG TAB As Ordered ONE (20:42)
[2019-11-28] MEDS ORDERED: PREGABALIN 100 MG CAP (LYRICA) As Ordered ONE ×2 (00:30→08:10)
[2019-11-28] MEDS ORDERED: HumaLOG INSULIN (NovoLOG) PER UNIT As Ordered ONE ×3 (00:32→12:13)
[2019-11-28] MEDS ORDERED: oxyCODONE 5MG TAB As Ordered ONE ×2 (08:11→12:12)
[2019-11-28] MEDS ORDERED: CelecoXIB (CeleBREX) 100 MG CAP As Ordered ONE (08:11)
[2019-11-28] MEDS ORDERED: PANTOPRAZOLE 40MG TAB (PROTONIX) As Ordered ONE (08:11)
[2019-11-28] MEDS ORDERED: lisinopriL 5 MG TAB As Ordered ONE (08:11)
[2019-11-28] MEDS ORDERED: DULoxetine 30 MG CAP (CYMBALTA) As Ordered ONE (08:11)
[2019-11-28] MEDS ORDERED: busPIRone 10 MG TAB As Ordered ONE (12:13)
[2019-11-28] MEDS ORDERED: QUEtiapine FUMARATE 100 MG TAB ONE (13:00)
[2019-11-28] MEDS ORDERED: busPIRone 5 MG TAB ONE (13:00)
--- NOTE | 2020-01-04 16:31 | ECGEPIP ---
SINUS RHYTHM POSSIBLE ANTERIOR MYOCARDIAL INFARCTION, OF INDETERMINATE AGE INFERIOR MYOCARDIAL INFARCTION , OF INDETERMINATE AGE ABNORMAL ECG CLINICAL CORRELATE SEE SCANNED DOWNTIME REPORT MTDD
[2020-01-08 15:50] LABS: INR 1.04; PROTHROMBIN TIME 13.8 SECONDS (12.5-14.3)
[2020-01-08 15:51] LABS: PARTIAL THROMBOPLASTIN TIME 23.6 SECONDS (24.2-38.5)
[2020-01-08 17:01] LABS: BASO % 0.3 % (0.0-1.0); EOS % 0.3 % (0.0-3.0); HEMATOCRIT 43.3 % (36.0-47.0); HEMOGLOBIN 14.5 g/dl (12.0-15.5); LYMPH # 0.7 10^3/uL (1.5-5.0); LYMPH % 5.1 % (24.0-44.0); MEAN CORPUSCULAR HEMOGLOBIN 32.7 pg (27.0-33.0); MEAN CORPUSCULAR HGB CONC 33.5 g/dl (32.0-36.5); MEAN CORPUSCULAR VOLUME 97.5 fl (80.0-96.0); MONO # 0.5 10^3/uL (0.0-0.8); MONO % 3.8 % (0.0-5.0); NEUTROPHILS # 11.8 10^3/uL (1.5-8.5); NEUTROPHILS % 89.3 % (36.0-66.0); PLATELET COUNT, AUTOMATED 216 10^3/uL (150-450); RED BLOOD COUNT 4.44 10^6/uL (4.00-5.40); WHITE BLOOD COUNT 13.3 10^3/uL (4.0-10.0)
--- NOTE | 2020-01-11 07:29 | EEG ---
DATE: 11/27/2019 DIAGNOSIS: Altered mental status. EEG# [id number] REFERRING PHYSICIAN: Dr. Chery Chairez HISTORY: Patient is a 49-year-old man who was admitted at [facility] with an episode of altered mental status with loss of awareness, arms and legs sticking out with glassy eyes. This EEG was done to rule out epileptic potential. She is currently taking Cymbalta, Oxybutynin, BuSpar, metoprolol, oxycodone, Lyrica, etc. TECHNICAL DESCRIPTION: This baseline EEG was recorded by a 21-scalp, ear, and two EKG electrodes and was reviewed in bipolar and referential montages following reformatting in 10-20 international electrode placement system. INTERPRETATION: Patient was noted to be in awake and drowsy states during this EEG. Resting and awake background rhythm consisted of well-formed posterior dominant rhythm with anterior-posterior gradient comprising of 9 Hz alpha activity measuring 15-40 microvolts in amplitude, which was symmetric and reactive to eye opening. Anteriorly low voltage and mixed frequency activity was noted. Attenuation of posterior dominant rhythm was seen during transition to drowsiness. No sleep was achieved. Hyperventilation and photic stimulation remained unremarkable. EKG revealed normal sinus rhythm with few PACs. No focal, lateralizing, or epileptiform abnormalities were seen. No relevant clinical activity was noted. CONCLUSION: This EEG in awake and drowsy states is within normal limits. MTDD
[2020-01-13 14:32] LABS: BASO % 0.5 % (0.0-1.0); EOS # 0.1 10^3/uL (0.0-0.5); EOS % 1.1 % (0.0-3.0); HEMATOCRIT 40.4 % (36.0-47.0); HEMOGLOBIN 13.3 g/dl (12.0-15.5); LYMPH # 2.5 10^3/uL (1.5-5.0); LYMPH % 29.1 % (24.0-44.0); MEAN CORPUSCULAR HEMOGLOBIN 32.1 pg (27.0-33.0); MEAN CORPUSCULAR HGB CONC 32.9 g/dl (32.0-36.5); MEAN CORPUSCULAR VOLUME 97.6 fl (80.0-96.0); MONO # 0.9 10^3/uL (0.0-0.8); MONO % 10.9 % (0.0-5.0); NEUTROPHILS # 4.8 10^3/uL (1.5-8.5); NEUTROPHILS % 56.9 % (36.0-66.0); PLATELET COUNT, AUTOMATED 199 10^3/uL (150-450); RED BLOOD COUNT 4.14 10^6/uL (4.00-5.40); WHITE BLOOD COUNT 8.5 10^3/uL (4.0-10.0)
[2020-01-13 15:13] LABS: APPEARANCE, CSF CLEAR (CLEAR); COLOR, CSF COLORLESS (COLORLESS); CSF TUBE# CELL CNT TUBE 3
[2020-01-13 18:29] LABS: BASO # 0.1 10^3/uL (0.0-0.2); BASO % 0.7 % (0.0-1.0); EOS # 0.1 10^3/uL (0.0-0.5); EOS % 1.2 % (0.0-3.0); HEMOGLOBIN 13.3 g/dl (12.0-15.5); LYMPH # 2.9 10^3/uL (1.5-5.0); LYMPH % 38.5 % (24.0-44.0); MEAN CORPUSCULAR HGB CONC 32.4 g/dl (32.0-36.5); MEAN CORPUSCULAR VOLUME 98.8 fl (80.0-96.0); MONO # 0.8 10^3/uL (0.0-0.8); MONO % 10.5 % (0.0-5.0); NEUTROPHILS # 3.6 10^3/uL (1.5-8.5); NEUTROPHILS % 47.9 % (36.0-66.0); PLATELET COUNT, AUTOMATED 193 10^3/uL (150-450); RED BLOOD COUNT 4.15 10^6/uL (4.00-5.40); WHITE BLOOD COUNT 7.6 10^3/uL (4.0-10.0)
[2020-01-18 09:31] LABS: BASO # 0.1 10^3/uL (0.0-0.2); BASO % 0.7 % (0.0-1.0); EOS # 0.1 10^3/uL (0.0-0.5); EOS % 1.5 % (0.0-3.0); HEMATOCRIT 42.4 % (36.0-47.0); HEMOGLOBIN 13.9 g/dl (12.0-15.5); LYMPH # 2.9 10^3/uL (1.5-5.0); LYMPH % 35.8 % (24.0-44.0); MEAN CORPUSCULAR HEMOGLOBIN 32.6 pg (27.0-33.0); MEAN CORPUSCULAR HGB CONC 32.8 g/dl (32.0-36.5); MEAN CORPUSCULAR VOLUME 99.5 fl (80.0-96.0); MONO # 0.9 10^3/uL (0.0-0.8); MONO % 11.4 % (0.0-5.0); PLATELET COUNT, AUTOMATED 187 10^3/uL (150-450); RED BLOOD COUNT 4.26 10^6/uL (4.00-5.40); WHITE BLOOD COUNT 8.1 10^3/uL (4.0-10.0)
[2020-01-24 01:37] LABS: HEPATITIS A ANTIBODY IGM NEGATIVE (NEGATIVE); HEPATITIS B CORE ANTIBODY IGM NEGATIVE (NEGATIVE); HEPATITIS B SURFACE ANTIBODY NEGATIVE (POSITIVE); HEPATITIS B SURFACE ANTIGEN NEGATIVE (NEGATIVE); HEPATITIS C VIRUS ABY INDEX 0.1 INDEX (<0.8); VITAMIN B12 LEVEL > 2000 PG/ML (247-911)
[2020-02-13 12:14] LABS: ALBUMIN 2.9 GM/DL (3.2-5.2); ALT/SGPT 4221 U/L (12-78); BILIRUBIN,TOTAL 2.2 MG/DL (0.2-1.0); BLOOD UREA NITROGEN 21 MG/DL (7-18); CALCIUM LEVEL 8.5 MG/DL (8.5-10.1); CARBON DIOXIDE LEVEL 22 MEQ/L (21-32); CHLORIDE LEVEL 108 MEQ/L (98-107); CK-MB VALUE MASS 1.1 NG/ML (<3.6); CPK CREATINE PHOSPHOKINASE 48 U/L (26-192); CREATININE FOR GFR 1.14 MG/DL (0.55-1.30); GLOMERULAR FILTRATION RATE 53.5 (>51); GLUCOSE, FASTING 369 MG/DL (70-100); MB/CK RELATIVE INDEX 2.29 (< OR =4); POTASSIUM SERUM 4.2 MEQ/L (3.5-5.1); SODIUM LEVEL 141 MEQ/L (136-145); THYROID STIMULATING HORMONE 0.444 uIU/ML (0.358-3.740); TOTAL PROTEIN 5.8 GM/DL (6.4-8.2); TROPONIN I < 0.02 NG/ML (< 0.10)
[2020-02-20 19:59] LABS: ALBUMIN 2.8 GM/DL (3.2-5.2); ALT/SGPT 2855 U/L (12-78); BILIRUBIN,TOTAL 1.2 MG/DL (0.2-1.0); BLOOD UREA NITROGEN 20 MG/DL (7-18); CALCIUM LEVEL 8.5 MG/DL (8.5-10.1); CARBON DIOXIDE LEVEL 26 MEQ/L (21-32); CHLORIDE LEVEL 107 MEQ/L (98-107); CPK CREATINE PHOSPHOKINASE 41 U/L (26-192); CREATININE FOR GFR 0.86 MG/DL (0.55-1.30); GLOMERULAR FILTRATION RATE > 60.0 (>51); GLUCOSE, FASTING 215 MG/DL (70-100); HEPATITIS A ANTIBODY IGM NEGATIVE (NEGATIVE); HEPATITIS B CORE ANTIBODY IGM NEGATIVE (NEGATIVE); HEPATITIS B SURFACE ANTIGEN NEGATIVE (NEGATIVE); HEPATITIS C VIRUS ABY INDEX 0.1 INDEX (<0.8); POTASSIUM SERUM 3.8 MEQ/L (3.5-5.1); SODIUM LEVEL 140 MEQ/L (136-145); TOTAL PROTEIN 5.5 GM/DL (6.4-8.2)
[2020-02-20 20:26] LABS: CSF TUBE# GLU TUBE 1; CSF TUBE# TP TUBE 1; GLUCOSE CSF 139 MG/DL (40-75); TOTAL PROTEIN,CSF 0.1 MG/DL (15-45)
[2020-02-20 22:47] LABS: OSMOLALITY SERUM 304 MOSM/KG (275-295)
[2020-02-20 23:12] LABS: BLOOD UREA NITROGEN 21 MG/DL (7-18); CALCIUM LEVEL 7.7 MG/DL (8.5-10.1); CARBON DIOXIDE LEVEL 27 MEQ/L (21-32); CHLORIDE LEVEL 108 MEQ/L (98-107); CREATININE FOR GFR 0.99 MG/DL (0.55-1.30); GLOMERULAR FILTRATION RATE > 60.0 (>51); GLUCOSE, FASTING 350 MG/DL (70-100); POTASSIUM SERUM 4.3 MEQ/L (3.5-5.1); SODIUM LEVEL 140 MEQ/L (136-145)
[2020-02-20 23:12] LABS: ALBUMIN 2.8 GM/DL (3.2-5.2); ALT/SGPT 1782 U/L (12-78); BILIRUBIN,TOTAL 1.3 MG/DL (0.2-1.0); BLOOD UREA NITROGEN 20 MG/DL (7-18); CALCIUM LEVEL 8.3 MG/DL (8.5-10.1); CARBON DIOXIDE LEVEL 28 MEQ/L (21-32); CHLORIDE LEVEL 109 MEQ/L (98-107); CREATININE FOR GFR 0.78 MG/DL (0.55-1.30); GLOMERULAR FILTRATION RATE > 60.0 (>51); GLUCOSE, FASTING 162 MG/DL (70-100); POTASSIUM SERUM 3.7 MEQ/L (3.5-5.1); SODIUM LEVEL 143 MEQ/L (136-145); TOTAL PROTEIN 5.4 GM/DL (6.4-8.2)
[2020-02-21 04:12] LABS: ALBUMIN 2.8 GM/DL (3.2-5.2); ALT/SGPT 1238 U/L (12-78); BLOOD UREA NITROGEN 15 MG/DL (7-18); CALCIUM LEVEL 8.5 MG/DL (8.5-10.1); CARBON DIOXIDE LEVEL 28 MEQ/L (21-32); CHLORIDE LEVEL 111 MEQ/L (98-107); GLOMERULAR FILTRATION RATE > 60.0 (>51); GLUCOSE, FASTING 116 MG/DL (70-100); POTASSIUM SERUM 3.7 MEQ/L (3.5-5.1); SODIUM LEVEL 145 MEQ/L (136-145); TOTAL PROTEIN 5.3 GM/DL (6.4-8.2)
== END 2019-11-28 14:38 | disposition home or self-care (01) | DRG 72 ==
LOC: M ED 14:04 → M MS5PR 20:37
PROVIDERS: ADMIT Internal Medicine; ATTEND Internal Medicine
PROC: 009U3ZX Drainage of Spinal Canal, Percutaneous Approach, Diagnostic (ICD-10-PCS; principal; 2019-11-26)
DX: G93.40 Encephalopathy, unspecified (principal); K75.81 Nonalcoholic steatohepatitis (NASH); I48.91 Unspecified atrial fibrillation; J45.909 Unspecified asthma, uncomplicated; E11.9 Type 2 diabetes mellitus without complications; M79.7 Fibromyalgia; E78.5 Hyperlipidemia, unspecified; D64.9 Anemia, unspecified; F41.9 Anxiety disorder, unspecified; M32.10 Systemic lupus erythematosus, organ or system involvement unspecified

== ENCOUNTER 2020-05-06 12:45 | Emergency (ER) | payer OTHER ==
[~2020-05-06] VITALS: Ht 162.6 cm; Wt 113.6 kg
[~2020-05-06 12:45] MED LIST changes: +GABA-282 PO; -GABA-843 PO; +LISI10TA22 PO; -LISI10TA4 PO
--- OUTSIDE RECORDS SUMMARY | 2020-05-06 12:54 | CCD ---
Author Author [facility] Organization [facility] Address Unknown Phone Unavailable Care Team Providers Care Fiscal Specialist Name Role Phone Radha HENRY JAGDEEP Unavailable Unavailable TURRIN, JAMES Unavailable Unavailable TURRIN, JAMES Unavailable Unavailable TURRIN, JAMES Unavailable Unavailable TURRIN, JAMES Unavailable Unavailable Ashleigh Falanga, A Janice RECORDER HELPER GRAVITY PROSPECTING Unavailable Unavailable Lansing Falanga, A Janice RECORDER HELPER GRAVITY PROSPECTING Unavailable Unavailable Ashleigh Falanga, A Janice RECORDER HELPER GRAVITY PROSPECTING Unavailable Unavailable [place] Falanga, A Janice RECORDER HELPER GRAVITY PROSPECTING Unavailable Unavailable [place] Falanga, A Janice RECORDER HELPER GRAVITY PROSPECTING Unavailable Unavailable Ashleigh Falanga, A Janice RECORDER HELPER GRAVITY PROSPECTING Unavailable Unavailable Ashleigh Falanga, A Janice RECORDER HELPER GRAVITY PROSPECTING Unavailable Unavailable [place] Falanga, A Janice RECORDER HELPER GRAVITY PROSPECTING Unavailable Unavailable [place] Falanga, A Janice RECORDER HELPER GRAVITY PROSPECTING Unavailable Unavailable [place] Falanga, A Janice RECORDER HELPER GRAVITY PROSPECTING Unavailable Unavailable Ashleigh Falanga, A Janice RECORDER HELPER GRAVITY PROSPECTING Unavailable Unavailable [place] Falanga, A Janice RECORDER HELPER GRAVITY PROSPECTING Unavailable Unavailable Ashleigh Falanga, A Janice RECORDER HELPER GRAVITY PROSPECTING Unavailable Unavailable [place] Falanga, A Janice RECORDER HELPER GRAVITY PROSPECTING Unavailable Unavailable [place] Falanga, A Janice RECORDER HELPER GRAVITY PROSPECTING Unavailable Unavailable [place] Falanga, A Janice RECORDER HELPER GRAVITY PROSPECTING Unavailable Unavailable [place] Falanga, A Janice RECORDER HELPER GRAVITY PROSPECTING Unavailable Unavailable Ashleigh Falanga, A Janice RECORDER HELPER GRAVITY PROSPECTING Unavailable Unavailable Ashleigh Falanga, A Janice RECORDER HELPER GRAVITY PROSPECTING Unavailable Unavailable [place] Falanga, A Janice RECORDER HELPER GRAVITY PROSPECTING Unavailable Unavailable [place] Falanga, A Janice RECORDER HELPER GRAVITY PROSPECTING Unavailable Unavailable [place] Falanga, A Janice RECORDER HELPER GRAVITY PROSPECTING Unavailable Unavailable Ashleigh Falanga, A Janice RECORDER HELPER GRAVITY PROSPECTING Unavailable Unavailable Ashleigh Falanga, A Janice RECORDER HELPER GRAVITY PROSPECTING Unavailable Unavailable Ashleigh Falanga, A Janice RECORDER HELPER GRAVITY PROSPECTING Unavailable Unavailable Ashleigh Falanga, A Janice RECORDER HELPER GRAVITY PROSPECTING Unavailable Unavailable [place] Falanga, A Janice RECORDER HELPER GRAVITY PROSPECTING Unavailable Unavailable Ashleigh Falanga, A Janice RECORDER HELPER GRAVITY PROSPECTING Unavailable Unavailable [place] Falanga, A Janice RECORDER HELPER GRAVITY PROSPECTING Unavailable Unavailable Ashleigh Falanga, A Janice RECORDER HELPER GRAVITY PROSPECTING Unavailable Unavailable BERRY BEJARANO MD Unavailable Unavailable BERRY BEJARANO MD Unavailable Unavailable BERRY BEJARANO MD Unavailable Unavailable BERRY BEJARANO MD Unavailable Unavailable BERRY BEJARANO MD Unavailable Unavailable BERRY BEJARANO MD Unavailable Unavailable BERRY BEJARANO MD Unavailable Unavailable BERRY BEJARANO MD Unavailable Unavailable BERRY BEJARANO MD Unavailable Unavailable BERRY BEJARANO MD Unavailable Unavailable BERRY BEJARANO MD Unavailable Unavailable BRERY BEJARANO MD Unavailable Unavailable BERRY BEJARANO MD Unavailable Unavailable BERRY BEJARANO MD Unavailable Unavailable BERRY BEJARANO MD Unavailable Unavailable BERRY BEJARANO MD Unavailable Unavailable BERRY BEJARANO MD Unavailable Unavailable BERRY BEJARANO MD Unavailable Unavailable BERRY BEJARANO MD Unavailable Unavailable BERRY BEJARANO MD Unavailable Unavailable BERRY BEJARANO MD Unavailable Unavailable BERRY BEJARANO MD Unavailable Unavailable BERRY BEJARANO MD Unavailable Unavailable BERRY BEJARANO MD Unavailable Unavailable BERRY BEJARANO MD Unavailable Unavailable BERRY BEJARANO MD Unavailable Unavailable BERRY BEJARANO MD Unavailable Unavailable BERRY BEJARANO MD Unavailable Unavailable BERRY BEJARANO MD Unavailable Unavailable BERRY BEJARANO MD Unavailable Unavailable BERRY BEJARANO MD Unavailable Unavailable BERRY BEJARANO MD Unavailable Unavailable BERRY BEJARANO MD Unavailable Unavailable BERRY BEJARANO MD Unavailable Unavailable BERRY BEJARANO MD Unavailable Unavailable BERRY BEJARANO MD Unavailable Unavailable BERRY BEJARANO MD Unavailable Unavailable BERRY BEJARANO MD Unavailable Unavailable BERRY BEJARANO MD Unavailable Unavailable BERRY BEJARANO MD Unavailable Unavailable BERRY BEJARANO MD Unavailable Unavailable BERRY BEJARANO MD Unavailable Unavailable BERRY BEJARANO MD Unavailable Unavailable BERRY BEJARANO MD Unavailable Unavailable BERRY BEJARANO MD Unavailable Unavailable BERRY BEJARANO MD Unavailable Unavailable BERRY BEJARANO MD Unavailable Unavailable BERRY BEJARANO MD Unavailable Unavailable BERRY BEJARANO MD Unavailable Unavailable BERRY BEJARANO MD Unavailable Unavailable BERRY BEJARANO MD Unavailable Unavailable BERRY BEJARANO MD Unavailable Unavailable BERRY BEJARANO MD Unavailable Unavailable BERRY BEJARANO MD Unavailable Unavailable BERRY BEJARANO MD Unavailable Unavailable BERRY BEJARANO MD Unavailable Unavailable BERRY BEJARANO MD Unavailable Unavailable BERRY BEJARANO MD Unavailable Unavailable BERRY BEJARANO MD Unavailable Unavailable BERRY BEJARANO MD Unavailable Unavailable BERRY BEJARANO MD Unavailable Unavailable BERRY BEJARANO MD Unavailable Unavailable BERRY BEJARANO MD Unavailable Unavailable BERRY BEJARANO MD Unavailable Unavailable BERRY BEJARANO MD Unavailable Unavailable BERRY BEJARANO MD Unavailable Unavailable BERRY BEJARANO MD Unavailable Unavailable BERRY BEJARANO MD Unavailable Unavailable BERRY BEJARANO MD Unavailable Unavailable BERRY BEJARANO MD Unavailable Unavailable BERRY BEJARANO MD Unavailable Unavailable BERRY BEJARANO MD Unavailable Unavailable BERRY BEJARANO MD Unavailable Unavailable BEJARANO, BERRY HOUSER MD Unavailable Unavailable BEJARANO, BERRY HOUSER MD Unavailable Unavailable BEJARANO, BERRY HOUSER MD Unavailable Unavailable BEJARANO, BERRY HOUSER MD Unavailable Unavailable BEJARANO, BERRY HOUSER MD Unavailable Unavailable BEJARANO, BERRY HOUSER MD Unavailable Unavailable BEJARANO, BERRY HOUSER MD Unavailable Unavailable BEJARANO, BERRY HOUSER MD Unavailable Unavailable BEJARANO, BERRY HOUSER MD Unavailable Unavailable BEJARANO, BERRY HOUSER MD Unavailable Unavailable SYSTEM IN, NOT IN PROVIDER Unavailable Unavailable DESJARLAIS, SARAH MRI SUPERVISOR Unavailable Unavailable DESJARLAIS, SARAH MRI SUPERVISOR Unavailable Unavailable DESJARLAIS, SARAH MRI SUPERVISOR Unavailable Unavailable DESJARLAIS, SARAH MRI SUPERVISOR Unavailable Unavailable DESJARLAIS, SARAH MRI SUPERVISOR Unavailable Unavailable DESJARLAIS, SARAH MRI SUPERVISOR Unavailable Unavailable DESJARLAIS, SARAH MRI SUPERVISOR Unavailable Unavailable DESJARLAIS, SARAH MRI SUPERVISOR Unavailable Unavailable DESJARLAIS, SARAH MRI SUPERVISOR Unavailable Unavailable Re-disclosure Warning The records that you are about to access may contain information from federally-assisted alcohol or drug abuse programs. If such information is present, then the following federally mandated warning applies: This information has been disclosed to you from records protected by federal confidentiality rules (42 CFR part 2). The federal rules prohibit you from making any further disclosure of this information unless further disclosure is expressly permitted by the written consent of the person to whom it pertains or as otherwise permitted by 42 CFR part 2. A general authorization for the release of medical or other information is NOT sufficient for this purpose. The Federal rules restrict any use of the information to criminally investigate or prosecute any alcohol or drug abuse patient.The records that you are about to access may contain highly sensitive health information, the redisclosure of which is protected by Article 27-F of the [facility] Public Health law. If you continue you may have access to information: Regarding HIV / AIDS; Provided by facilities licensed or operated by the [facility] Office of Mental Health; or Provided by the [facility] Office for People With Developmental Disabilities. If such information is present, then the following [facility] mandated warning applies: This information has been disclosed to you from confidential records which are protected by state law. State law prohibits you from making any further disclosure of this information without the specific written consent of the person to whom it pertains, or as otherwise permitted by law. Any unauthorized further disclosure in violation of state law may result in a fine or long term sentence or both. A general authorization for the release of medical or other information is NOT sufficient authorization for further disc losure. Allergies and Adverse Reactions Type Description Substance Reaction Status Data Source(s ) Food allergy KIWI FRUIT EXTRACT KIWI FRUIT EXTRACT [facility] Drug allergy LAMOTRIGINE LAMOTRIGINE [facility] Drug allergy ONDANSETRON ONDANSETRON [facility] Kiwi Kiwi Kiwi throat swelling Active eCW1 ([facility]) Lamotrigine Lamotrigine Lamotrigine Rash Active eCW1 ([facility] access hospital) Family History Family Member Name Family Member Gender Family Member Status Date o f Status Description Data Source(s) Unknown Unknown Problem MEDENT ([facility], ) Unknown Unknown Problem MEDENT ([facility] ) Unknown Unknown Problem MEDENT ([facility] ) Unknown Unknown Problem MEDENT ([facility] ) Unknown Female Problem MEDENT ([facility] ) Encounters Encounter Providers Location Date Indications Data Source(s ) Outpatient Attender: CORRINA BEJARANO MD 07/03/2020 12:00:00 A [facility] Outpatient Attender: JAGDEEP HENRY 05/02/2020 03:00:00 PM [facility] Outpatient Attender: JAGDEEP HENRY 04/17/2020 02:00:00 PM [facility] Outpatient Attender: SARAH BELCHER NP 04/04/2020 02: 00:00 PM [facility] Outpatient Attender: JAGDEEP HENRY 03/27/2020 02:00:00 PM [facility] Outpatient Attender: JAGDEEP HENRY 02/08/2020 01:00:00 PM [facility] Outpatient Attender: CORRINA BEJARANO MD 01/31/2020 12:00:00 A [facility] Outpatient Attender: JAGDEEP HENRY 01/20/2020 01:00:00 PM [facility] Outpatient Attender: CORRINA BEJARANO MD 01/17/2020 12:00:00 A [facility] Outpatient Attender: CORRINA BEJARANO MD [id number] 2019 12:00:00 AM EDT - 01/04/2020 12:00:00 AM EDT Systemic lupus erythematosus, unspecified [facility] Systemic lupus erythematosus, unspecifie d Outpatient Attender: JAGDEEP MEJÍAD 12/23/2019 03:00:00 PM [facility] Outpatient Referrer: PROVIDER SYSTEM IN 11/26/2019 1 1:33:00 AM EDT new onset seizure [facility] new onset seizure Outpatient Attender: Janice Feliz FNPAttender: ALEXANDRA REYESDale YOSVANY 10/24/2019 12:24:00 PM EDT - 10/26/2019 01:00:00 PM EDT [facility] Patient discharged. Outpatient Attender: CORRINA BEJARANO MD [id number] 2019 12:00:00 AM EDT - 07/13/2019 10:39:22 AM EDT Systemic lupus erythematosus, unspecified [facility] Systemic lupus erythematosus, unspecifie d [facility] [address] [address] 04/10/2019 12:00:00 AM EST [facility] ([facility]) Medications Medication Brand Name Start Date Product Form Dose Route Admi nistrative Instructions Pharmacy Instructions Status Indications Reaction Description Data Source(s) methylPREDNISolone 4 MG Oral Tablet Therapy Pack (MEDROL DOS EPACK) 2381-1032-74 01/03/2020 12:00:00 AM EDT active follow package directions [facility] Oxycodone Hydrochloride 5 MG Oral Tablet oxyCODONE HCl 5 MG Oral Tablet (ROXICODONE) oxyCODONE HCl 5 MG Oral Tablet (ROXICODONE) 12/15/2019 12:00:00 AM EDT active [facility] 3 ML Insulin Glargine 100 UNT/ML Pen Inj barrett [Lantus] Lantus SoloStar 100 UNIT/ML Subcutaneous Solution Pen-injector Lantus SoloStar 100 UNIT/ML Subcutaneous Solution Pen-injector 12/13/2019 12:00:00 AM EDT active [facility] ospital Belimumab 200 MG/ML Subcutaneous Solution Auto-injector (PANKAJ LYSTA) [id number] 07/13/2019 12:00:00 AM EDT 200 mg Subcutaneous active Inject 1 mL into the skin every 7 (seven) days [facility] methylPREDNISolone 4 MG Oral Tablet Therapy Pack (MEDROL (PA K)) [id number] 04/26/2019 12:00:00 AM EST 8 mg Oral aborted Take 2 tablets by mouth Two Times Daily follow package directions [facility] Sulfamethoxazole 800 MG / Trimethoprim 1 60 MG Oral Tablet [Bactrim] Bactrim DS 800-160 MG Bactrim DS 800-160 MG 04/10/2019 12:00:00 AM EST active 1 tablet eCW1 ([facility]) Insurance Providers Payer name Policy type / Coverage type Policy ID Covered libertarian ID Covered libertarian's relationship to fabian Policy Fabian Plan Information [facility] [id number] [facility] [id number] [id number] REG O [id number] C [id number] U [id number] Self [id number] [facility] HUMANA - O/P [id number] 01 [id number] ANSI-Not a Secondary Insurance [id number] ANSI-Commercial [id number] [facility] Claims F [id number] SELF [id number] [facility] Claims F [id number] SELF [id number] [facility] CLAIMS PAM -O/P [id number] 01 [id number] [facility] Health Maintenance Organization (HMO) [id number] Family Dependent [id number] [facility] (2017) Health Maintenance Organization (HMO) [id number] Family Dependent [id number] [facility] Health Maintenance Organization (HMO) [id number] Family Dependent [id number] [facility] (2018) Health Maintenance Organization (HMO) [id number] Family Dependent [id number] [facility] [id number] [facility] [id number] [facility] Health Maintenance Organization (HMO) [id number] Family Dependent [id number] [facility] [id number] HU2 [id number] U [id number] Spouse [id number] U [id number] Self [id number] [facility] Health Maintenance Organization (HMO) [id number] Family Dependent [id number] [facility] [id number] HU2 [id number] U [id number] Spouse [id number] SELF PAY ONLY UNAVAILABLE SP UNAV AILABLE [facility] Commercial [id number] Family Dependent [id number] [employer]/ AD O [id number] S [id number] [facility] O [id number] S [id number] [facility] Commercial [id number] Family Dependent [id number] [facility] Health Maintenance Organization (HMO) Family Dependent [employer] [facility] F PLEASE GET SELF PLEASE GET [facility] [id number] HU2 [id number] [facility] BRANT O [id number] S [id number] Problems, Conditions, and Diagnoses Code Display Name Description Problem Type Effective Dates Data Source(s) F32.9 Major depressive disorder, single episod e, unspecified MAJOR DEPRESSIVE DISORDER, SINGLE EPISODE, UNSPECI Diagnosis 04/17/2020 02:00:00 PM [facility] F41.9 Anxiety disorder, unspecified ANXIETY DISORDER, UNSPEC IFIED Diagnosis 04/17/2020 02:00:00 PM [facility] new onset seizure new onset seizure Diagnosis 11/26/2019 11:33:00 AM [facility] F339 Major depressive disorder, recurrent, un specified Major depressive disorder, recurrent, unspecified Diagnosis 10/24/2019 12:24:[address] [facility] F419 Anxiety disorder, unspecified Anxiety disorder, unspec ified Diagnosis 10/24/2019 12:24:[address] [facility] M797 Fibromyalgia Fibromyalgia Diagnosis 10/24/2019 12:24:[address] [facility] M329 Systemic lupus erythematosus, unspecifie d Systemic lupus erythematosus, unspecified Diagnosis 10/24/2019 12:24:00 PM EDT [facility] M545 Low back pain Low back pain Diagnosis 10/24/2019 12:24:00 PM EDT [facility] Z6841 Body mass index (BMI) 40.0-44.9, adult B danette mass index (BMI) 40.0-44.9, adult Diagnosis 10/24/2019 12:24:00 PM EDT [facility] E669 Obesity, unspecified Obesity, unspecified Diagnosis 10/24/2019 12:24:00 PM EDT [facility] I4891 Unspecified atrial fibrillation Unspecified atrial fib rillation Diagnosis 10/24/2019 12:24:00 PM EDT [facility] Z794 sampler ovens (current) use of insulin sampler ovens (cu rrent) use of insulin Diagnosis 10/24/2019 12:24:00 PM EDT [facility] E119 Type 2 diabetes mellitus without complic ations Type 2 diabetes mellitus without complications Diagnosis 10/24/2019 12:24:00 PM EDT [facility] R0902 Hypoxemia Hypoxemia Diagnosis 10/24/2019 12:24:00 PM ED T [facility] J189 Pneumonia, unspecified organism Pneumonia, unspecified organism Diagnosis 10/24/2019 12:24:00 PM EDT [facility] Surgeries/Procedures Procedure Description Date Indications Data Source(s) QUANTIFERON-TB GOLD PLUS QUANTIFERON-TB GOLD PLUS Routine 01/03/2020 4:13 PM EDT Systemic lupus erythematosus, unspecified SLE type, unspecified organ involvement status High risk medication use BETHANY positive 01/03/2020 04:13:00 PM EDT BETHANY positiveH igh risk medication useSystemic lupus erythematosus, unspecified SLE type, unspecified organ involvement status [facility] BETHANY positive High risk medication use Systemic lupus erythematosus, unspecifie d SLE type, unspecified organ involvement status SEDIMENTATION RATE RBC AUTOMATED SEDIMENTATION RATE, AUTOMATED Routine 01/03/2020 4:13 PM EDT Systemic lupus erythematosus, unspecified SLE type, unspecified organ involvement status High risk medication use BETHANY positive 01/03/2020 04:13:00 PM EDT B[facility]ANY positiveH igh risk medication useSystemic lupus erythematosus, unspecified SLE type, unspecified organ involvement status [facility] BETHANY positive High risk medication use Systemic lupus erythematosus, unspecifie d SLE type, unspecified organ involvement status BLOOD COUNT COMPLETE AUTO&AUTO DIFRNTL WBC COUNT CBC AND DIFFER ENTIAL Routine 01/03/2020 4:13 PM EDT Systemic lupus erythematosus, unspecified SLE type, unspecified organ involvement status High risk medication use BETHANY positive 01/03/2020 04:13:00 PM EDT BETHANY positiveH igh risk medication useSystemic lupus erythematosus, unspecified SLE type, unspecified organ involvement status [facility] BETHANY positive High risk medication use Systemic lupus erythematosus, unspecifie d SLE type, unspecified organ involvement status ANTINUCLEAR ANTIBODIES BETHANY BETHANY Routine 01/03/2020 4 :13 PM EDT Systemic lupus erythematosus, unspecified SLE type, unspecified organ involvement status High risk medication use BETHANY positive 01/03/2020 04:13:00 PM EDT BETHANY positiveH igh risk medication useSystemic lupus erythematosus, unspecified SLE type, unspecified organ involvement status [facility] BETHANY positive High risk medication use Systemic lupus erythematosus, unspecifie d SLE type, unspecified organ involvement status COMPREHENSIVE METABOLIC PANEL COMPREHENSIVE METABOLIC PANEL Rou garcia 01/03/2020 4:13 PM EDT Systemic lupus erythematosus, unspecified SLE type, unspecified organ involvement status High risk medication use BETHANY positive 01/03/2020 04:13:00 PM EDT BETHANY positiveH igh risk medication useSystemic lupus erythematosus, unspecified SLE type, unspecified organ involvement status [facility] BETHANY positive High risk medication use Systemic lupus erythematosus, unspecifie d SLE type, unspecified organ involvement status STREP A ASSAY W/OPTIC 04/10/2019 12:00:00 AM EST eCW1 ([facility]) Results ID Date Data Source [id number] 01/05/2020 08:05:05 AM EDT [facility] Name Value Range Interpretation Code Description Data Glenda rce(s) Supporting Document(s) Progress Note [facility] [id number] [file] [id number] ID Date Data Source [id number] 01/03/2020 06:02:03 PM EDT [facility] NegativeNo interferon-gamma response to M.tuberculosisantigens was detected. Infection withM. tuberculosis is unlikely. A single negativeresult does not exclude infection with M. TB.In patients at high risk for M. tuberculosisinfection, a 2nd test should be consideredin accordance with [id number] ATS/IDSA/CDC Clinical Practice Guidelinesfor Diagnosis of Tuberculosis in Adults andChildren [Lewinspaolan DM et. al. Clin Infec.Fuf0199 64(2):111-115] Name Value Range Interpretation Code Description Data Glenda rce(s) Supporting Document(s) Leukocytes [#/volume] in Blood by Automated count 9.4 10*3/uL 4-10 [facility] Erythrocytes [#/volume] in Blood by Automated count 4.62 10*6/uL 4.1- 5.3 [facility] Hemoglobin [Mass/volume] in Blood 14.8 g/dL 11.5-15.5 [facility] Hematocrit [Volume Fraction] of Blood by Automated count 44.8 % 3 6-45 [facility] Erythrocyte mean corpuscular volume [Entitic volume] by Auto mated count 97.0 fL 80-96 H [facility] Erythrocyte mean corpuscular hemoglobin [Entitic mass] by Automated count 31.9 pg 27-33 [facility] Erythrocyte mean corpuscular hemoglobin concentration [Mass/volume] by Automated count 32.9 g/dL [facility].0[facility] width [Ratio] by Automated count 12.4 % 11.5-14.5 [facility] Platelets [#/volume] in Blood by Automated count 225 10*3/uL 150-400 [facility] Differential cell count method - Blood [facility] Neutrophils/100 leukocytes in Blood by Automated count 64 % [facility] Lymphocytes/100 leukocytes in Blood by Automated count 27 % [facility] Monocytes/100 leukocytes in Blood by Automated count 6 % [facility] Eosinophils/100 leukocytes in Blood by Automated count 2 % [facility] Basophils/100 leukocytes in Blood by Automated count 1 % [facility] Neutrophils [#/volume] in Blood by Automated count 6.16 10*3/uL 1.8-7 .0 [facility] Lymphocytes [#/volume] in Blood by Automated count 2.50 10*3/uL 1.2-4 .0 [facility] Monocytes [#/volume] in Blood by Automated count 0.55 10*3/uL 0-0.8 [facility] Eosinophils [#/volume] in Blood by Automated count 0.14 10*3/uL 0-0.5 [facility] Basophils [#/volume] in Blood by Automated count 0.09 10*3/uL 0-0.2 [facility] Nucleated erythrocytes/100 leukocytes [Ratio] in Blood by Automated count 0 /100{WBCs} 0-0 [facility] ID Date Data Source [id number] 01/03/2020 06:12:44 PM EDT [facility] NegativeNo interferon-gamma response to M.tuberculosisantigens was detected. Infection withM. tuberculosis is unlikely. A single negativeresult does not exclude infection with M. TB.In patients at high risk for M. tuberculosisinfection, a 2nd test should be consideredin accordance with [id number] ATS/IDSA/CDC Clinical Practice Guidelinesfor Diagnosis of Tuberculosis in Adults andChildren [Cecil DM et. al. Clin Infec.Kyu8811 64(2):111-115] Name Value Range Interpretation Code Description Data Glenda rce(s) Supporting Document(s) Erythrocyte sedimentation rate 30 mm/hr <30 H [facility] ID Date Data Source [id number] [facility] NegativeNo interferon-gamma response to M.tuberculosisantigens was detected. Infection withM. tuberculosis is unlikely. A single negativeresult does not exclude infection with M. TB.In patients at high risk for M. tuberculosisinfection, a 2nd test should be consideredin accordance with [id number] ATS/IDSA/CDC Clinical Practice Guidelinesfor Diagnosis of Tuberculosis in Adults andChildren [Leninsohgeeta DM et. al. Clin Infec.Miu4652 64(2):111-115] Name Value Range Interpretation Code Description Data Glenda rce(s) Supporting Document(s) Albumin [Mass/volume] in Serum or Plasma by Bromocresol green (BCG) dye binding method 3.9 g/dL 3.5-5.2 [facility] Bil[facility].total [Mass/volume] in Serum or Plasma 1.1 mg/dL <1.2 [facility] Calcium [Mass/volume] in Serum or Plasma 8.9 mg/dL 8.6-10.0 [facility] Chloride [Moles/volume] in Serum or Plasma 104 mmol/L 98-107 [facility] Creatinine [Mass/volume] in Serum or Plasma 0.85 mg/dL 0.50-0.90 [facility] Glucose [Mass/volume] in Serum or Plasma 170 mg/dL 70-140 [facility] Alkaline phosphatase [Enzymatic activity/volume] in Serum or Plasma 225 U/L 35-104 [facility] Potassium [Moles/volume] in Serum or Plasma 4.0 mmol/L 3.4-5.1 [facility] Protein [Mass/volume] in Serum or Plasma 6.7 g/dL 6.4-8.3 [facility] Sodium [Moles/volume] in Serum or Plasma 141 mmol/L 136-145 [facility] Aspartate aminotransferase [Enzymatic activity/volume] in Serum or Plasma 95 U/L <32 [facility] Urea nitrogen [Mass/volume] in Serum or Plasma 13 mg/dL 6-20 [facility] Osmolality of Serum or Plasma by calculation 296 mosm/kg 275-300 [facility] Creatinine/Urea nitrogen [Mass Ratio] in Serum or Plasma 15 [facility] Bicarbonate [Moles/volume] in Serum 25 mmol/L 22-29 [facility] Alanine aminotransferase [Enzymatic activity/volume] in Seru m or Plasma 679 U/L <33 [facility] Anion gap 3 in Serum or Plasma 12 mmol/L 8-15 [facility] Glomerular filtration rate/1.73 sq M pre dicted among non-blacks [Volume Rate/Area] in Serum or Plasma by Creatinine-based formula (MDRD) 78 mL/min/1.73m2 >60 [facility] Glomerular filtration rate/1.73 sq M pre dicted among blacks [Volume Rate/Area] in Serum or Plasma by Creatinine-based formula (MDRD) >60 [facility] ID Date Data Source [id number] 01/05/2020 03:05:50 PM EDT [facility] NegativeNo interferon-gamma response to M.tuberculosisantigens was detected. Infection withM. tuberculosis is unlikely. A single negativeresult does not exclude infection with M. TB.In patients at high risk for M. tuberculosisinfection, a 2nd test should be consideredin accordance with [id number] ATS/IDSA/CDC Clinical Practice Guidelinesfor Diagnosis of Tuberculosis in Adults andChildren [Leninssean DM et. al. Clin Infec.Znf1622 64(2):111-115] Name Value Range Interpretation Code Description Data Glenda rce(s) Supporting Document(s) Mycobacterium tuberculosis stimulated gamma interferon [Units/volume] in Blood 0.01 [IU]/mL [facility] 0.01 Mitogen stimulated gamma interferon [Units/volume] in Blood [facility] Gamma interferon background [Units/volume] in Blood by Immun oassay 0.03 [IU]/mL [facility] ID Date Data Source [id number] 01/04/2020 02:02:17 PM EDT [facility] Name Value Range Interpretation Code Description Data Glenda rce(s) Supporting Document(s) Nuclear Ab Pattern Homogenous [Titer] in Serum <80 [facility] Nuclear Ab pattern.speckled [Titer] in Serum <80 [facility] Nuclear Ab pattern.rim [Titer] in Serum <80 [facility] Nuclear Ab pattern.nucleolar [Titer] in Serum <80 [facility] ID Date Data Source [id number] 01/16/2020 08:19:00 AM EDT [facility] Name Value Range Interpretation Code Description Data Glenda rce(s) Supporting Document(s) MICROBIOLOGY TEACHER Antibodies 0.0-0.9 [facility] Weems Antibodies 0.0-0.9 [facility] ID Date Data Source [id number] 01/16/2020 08:19:00 AM EDT [facility] Name Value Range Interpretation Code Description Data Glenda rce(s) Supporting Document(s) Anti-DNA (DS) Ab Qn 0-9 [facility] Negative <5 Equivocal 5 - 9 Positive >9 ID Date Data Source [id number] 01/30/2020 09:05:00 AM EDT [facility] Name Value Range Interpretation Code Description Data Glenda rce(s) Supporting Document(s) Specimen Source Urine [facility] Streptococcus pneumoniae Ag Negative Negative [facility] Body Fluid Culture, Sterile Not indicated. [facility] Organism ID Not indicated. [facility] Please Note: [facility] [employer] standar ds require a culture to beperformed on CSF specimens submitted for bacterial antigen testing.(CAP LELIA.[id number]) Urine specimens will not be cultured. ID Date Data Source [id number] 01/30/2020 09:05:00 AM EDT [facility] Name Value Range Interpretation Code Description Data Glenda rce(s) Supporting Document(s) L. pneumophila Serogp 1 Ur Ag Negative Negative [facility] Presumptive negative for L. pneumophila serogroup 1 antigen in urine,suggesting no recent or current infection. Legionnaires' diseasecannot be ruled out since other serogroups and species may also causedisease. ID Date Data Source [id number] 10/24/2019 12:24:00 PM EDT [facility] 1 OrderSheet [facility] Emergency Department [address] [place] [address] Phone #: ext- [phone] 10/24/2019 12:16 Patient: CLINTON HAN Sex: F : 1970 Age: 49yWEIGHT:111.5 kg (S) HEIGHT:64 inches (S) BMI:42.2ALLERGIES: Kiwi, LamoTRIgine, Ondansetron, OpiodCHIEF COMPLAINT: dyspnea, asthmaDIAGNOSIS: Pneumonia, HypoxemiaLAB ORDERSOrder Description Priority Entered Acknowledged InitialedCBC w Diff STAT 12:33 10/24/2019 12:33 Dena Dunbar Riccardo RN M.D.;CMP STAT 12:33 10/24/2019 12:33 Dena Dunbar Riccardo RN M.D.;Lipase STAT 12:33 10/24/2019 12:33 Dena Dunbar Riccardo RN M.D.;PT/PTT STAT 12:33 10/24/2019 12:33 Dena Dunbar Riccardo RN M.D.;Troponin-T STAT 12:33 10/24/2019 12:33 Dena Dunbar Riccardo RN M.D.;BNP STAT 12:10/24/2019 12:33 Dena Dunbar Riccardo RN M.D.;D-Dimer STAT 12:33 10/24/2019 12:33 Dena Dunbar Riccardo RN M.D.;Urinalysis (Clean STAT 13:16 10/24/2019 13:23 Rosalia Hurley) James Baez R.N., M.D.;CORONAVIRUS STAT 14:23 10/24/2019 14:27 Carlitos HurleyD-19 James Baez R.N., M.D.;DIAGNOSTIC STUDY ORDERSOrder Description Priority Entered Acknowledged InitialedChest 2 View STAT 12:33 10/24/2019 12:33 Dena Dunbar 2 OrderSheet [facility] Emergency Department [address] [place] [address] Phone #: ext- [phone] 10/24/2019 12:16 Patient: CLINTON HAN Sex: F : 1970 Age: 49y(Oxygen?(No)) James Baez RN, M.D.; Reason for Study: Shortness of BreathCT CTA CHEST STAT 13:16 10/24/2019 13:23 Berry Hurley(NONCOR) W CON Turrin, James R.N.INC PP M.D.;(Oxygen?(No))(IV?(Yes)) Reason for Study: rt sided CP, SOB, high d-dimerMEDICATION/IV/DRIP/FLUID ORDERSOrder Description Priority Entered Acknowledged InitialedDuoNeb Neb Tx 3 12:43 10/24/2019 12:54 Berry HurleymL Davidrin, James R.N. M.D.;Percocet PO 1 tab 13:47 10/24/2019 13:47 Berry Hurley(HIGH ALERT Berry Hurley R.N.; R.N.MEDICATION) Verbal order per; Davidrin, James M.D.Rocephin 14:23 10/24/2019 15:53 Berry Hurley(1gm/50mL) IVPB Turrin, James R.N.1000 mg with M.D.;Dextrose 50 mlspike bag (D5W)Zithromax IVPB 500 14:23 10/24/2019 14:42 Berry Hurleymg X1 Dose: 500 Turrin, James R.N.mg with Dextrose M.D.;Intravenous 250 mL(NOW x1)Dexamethasone 14:23 10/24/2019 14:43 Berry HurleyIVP 10 mg Turrin, James R.N. M.D.;GENERAL ORDERSOrder Description Priority Entered Acknowledged Ini tialedBlood Pressure 12:33 10/24/2019 12:51 Berry HurleyMonitor Davidrin, James R.N. M.D.;Machine Cage Maker 12:33 10/24/2019 12:51 Berry Hurley(continuous) Turrin, James R.N. M.D.;EKG 12:33 10/24/2019 12:51 Berry Hurley 3 OrderSheet [facility] Emergency Department [address] [place] [address] Phone #: ext- [phone] 10/24/2019 12:16 Patient: CLINTON HAN Sex: F : 1970 Age: 49y James Baez R.N., M.D.;NPO 12:33 10/24/2019 12:51 Berry Hurley Riccardo R.N. M.D.;Obtain Old EKG 12:33 10/24/2019 12:51 Berry Hurley Riccardo R.N. M.D.;Obtain Old Records 12:33 10/24/2019 12:51 Berry Hurley Riccardo R.N. M.D.;Oxygen titrate to 12:33 10/24/2019 12:51 Berry Hurley92% James Baez R.N., M.D.;Pulse oximeter 12:33 10/24/2019 12:51 Berry Hurley(Continuous) James Baez R.N., M.D.;Saline Lock 12:33 10/24/2019 13:23 Berry Hurley Riccardo R.N. M.D.;Vitals 12:33 10/24/2019 12:51 Berry Hurley, Kaykay alvarado R.N., M.D.;Consult - 14:37 10/24/2019 14:43 Berry HurleyHospitalist James Baez R.N., M.D.;[Electronically signed by Berry Hurley R.N. (16:30 10/24/2019)][Electronically signed by James Baez M.D. (16:36 10/24/2019)][Electronically locked by Berry Hurley R.N. (16:30 10/24/2019)] Name Value Range Interpretation Code Description Data Glenda rce(s) Supporting Document(s) ID Date Data Source [id number] 10/24/2019 12:24:00 PM EDT [facility] 1 Medication Reconciliation Report [facility] Emergency Department [address] [place] [address] Phone #: ext- [phone] 10/24/2019 12:16 [id number] Sex[facility] F : 1970 Age: 49yWeight: 111.5 kgHeight/Length: 64 in.BMI: 42.2ALLERGIES: Kiwi, LamoTRIgine, Ondansetron, OpiodThe patient's Home Medications are listed below:THE FOLLOWING MEDICATIONS NEED TO BE RECONCILED: Albuterol Sulfate HFA Inhalation (108 (90 Base) mcg/act), q4h, prn Baclofen Oral (10 mg) 2 tablets, daily, prn,at bedtime Baclofen Oral (10 mg) 1 tablet, daily, prn Belimumab Subcutaneous (200 mg/mL), once a week Brimonidine Tartrate Ophthalmic, daily, prn busPIRone HCl Oral (15 mg) 1 tablet, q6h, prn Cetirizine HCl Oral (10 mg) 1 capsule, daily Cyanocobalamin Oral (1000 mcg), daily DULoxetine HCl Oral (30 mg) 1 capsule, daily DULoxetine HCl Oral (60 mg) 1 capsule, daily Empagliflozin Oral (25 mg), daily Ergocalciferol Oral (73072 unit), daily Exenatide Subcutaneous 2mcg, once a week Ferrous Sulfate Iron Oral (200 (65 Fe) mg) 1 tablet, 2x a day Lantus Subcutaneous 16 units, daily, at bedtime 2 Medication Reconciliation Report [facility] Emergency Department [address] [place] [address] Phone #: ext- [phone] 10/24/2019 12:16 Patient: CLINTON HAN Sex: F : 1970 Age: 49y Lidocaine HCl External (5 %), daily Lifitegrast 5 , 2x a day Lisinopril Oral (5 mg) 1 tablet, daily metFORMIN HCl ER Oral (500 mg) 1 tablet, 2x a day methylPREDNISolone Oral (4 mg) 2 tablets, daily, prn methylPREDNISolone Oral (4 mg), daily Metoprolol Succinate ER Oral (25 mg) 1 tablet, daily metroNIDAZOLE External (1 %), prn MiraLax Oral 1 packet, daily, prn Montelukast Sodium Oral (10 mg) 1 tablet, daily, at bedtime Mupirocin External (2 %), 2x a day Naloxone Ondansetron Oral (4 mg), q8h, prn oxyCODONE- Acetaminophen Oral (5-325 mg) 1 tablet, q6h, prn prednisoLONE Acetate Ophthalmic (1 %), 2x a day Pregabalin Oral (200 mg), q8h Protonix Oral (40 mg), daily QUEtiapine Fumarate Oral (25 mg), daily, prn QUEtiapine Fumarate Oral (100 mg), daily, at bedtime Rizatriptan Benzoate Oral 10 mg, prn Rosuvastatin Calcium Oral (10 mg), dailyThe source(s) of the original Home Medication information:Not obtained. 3 Medication Reconciliation Report [facility] Emergency Department [address] [place] [address] Phone #: ext- [phone] 10/24/2019 12:16 Patient: CLINTON HAN Sex: F : 1970 Age: 49yThe following Medications were given to the patient in the Emergency Department:Duoneb [Neb Tx] Neb TX 1 unit dose, administered: 10/24/2019 12:54:00 PMPercocet [PO] PO 1 tab, administered: 10/24/2019 1:47:00 PMZithromax [IVPB] IVPB bolus 0, then 500 mg 250 mL/hr, administered: 10/24/2019 2:42:00 PMDexamethasone [IVP] IVP 10 mg, administered: 10/24/2019 2:43:00 PMROCEPHIN (1GM/50ML) [IVPB] IVPB bolus 0, then 1 gm 100 mL/hr, administered: 10/24/2019 3:53:00 PMThe following Medications were prescribed to the patient:None. Name Value Range Interpretation Code Description Data Glenda rce(s) Supporting Document(s) ID Date Data Source [id number] 10/24/2019 12:24:00 PM EDT [facility] 1 Medication Administration Record [facility] Emergency Department [address] [place] [address] Phone #: ext- [phone] 10/24/2019 12:16 Patient: CLINTON HAN Sex: F : 1970 Age: 49yWeight: 111.5 kgHeight/Length: 64 inBMI: 42.2ALLERGIES: Ondansetron, Opiod, Kiwi, LamoTRIgine Date/Time Medication Administered Medication OrderedGiven DUONEB [NEB TX] DuoNeb Neb Tx 3 mL12:54 10/24/2019 Dose: 1 unit dose Nebulizer Neb TXBerry Hurley R.N.----Stop13:24 10/24/2019Berry Hurley R.N.Given PERCOCET [PO] Percocet PO 1 tab (HIGH ALERT13:47 10/24/2019 (OXYCODONE-ACETAMINOPHEN) MEDICATION)Berry Hurley R.N. Dose: 1 tab Tablets POStart ROCEPHIN (1GM/50ML) [IVPB] Rocephin (1gm/50mL) IVPB 879237:53 10/24/2019 (CEFTRIAXONE SODIUM) mg with Dextrose 50 ml spike Berry Dang, RMauricioNMauricio Dose: 1 gm IVPB (D5W )---- Rate: 100 mL/hr over 30 minute(s)Stop Dispensed: 50 mL bag16:20 10/24/2019 Site: #1 right ACRoy, Berry, R.N.Start ZITHROMAX [IVPB] (AZITHROMYCIN) Zithromax IVPB 500 mg X1 Dose:14:42 10/24/2019 Dose: 500 mg IVPB 500 mg with Dextrose IntravenousBerry Hurley R.N. Rate: 250 mL/hr over 1 hour(s) 250 mL (NOW x1)---- Dispensed: 250 mL bagStop Site: #1 right AC15:52 10/24/2019Berry Hurley R.N.Given DEXAMETHASONE [IVP] Dexamethasone IVP 10 mg14:43 10/24/2019 Dose: 10 mg IVPRoBerry wilks R.N. Site: #1 right AC Name Value Range Interpretation Code Description Data Glenda rce(s) Supporting Document(s) ID Date Data Source [id number] 10/24/2019 12:24:00 PM EDT [facility] 1 General Instructions [facility] Emergency Department [address] [place] [address] Phone #: ext- [phone] 10/24/2019 12:16 Patient: CLINTON HAN Sex: F : 1970 Age: 49yBronchopneumonia with hypoxemia.Hypoxia.(Electronically signed by James Baez M.D. 10/24/2019 16:36) Name Value Range Interpretation Code Description Data Glenda rce(s) Supporting Document(s) ID Date Data Source [id number] 10/24/2019 12:24:00 PM EDT [facility] 1 Clinical Report - Nurses [facility] Emergency Department [address] [place] [address] Phone #: ext- [phone] 10/24/2019 12:16 Patient: CLINTON HAN Sex: F : 1970 Age: 49yTRIAGE Arrived by private vehicle. Historian: patient. Unaccompanied. ( chest pain on and off for several weeks, sob started this am when she work up calls chest pain costochondritis). Acuity: LEVEL 3. Chief Complaint: SHORTNESS OF BREATH and DIFFICULTY BREATHING. Alert. No acute distress. The patient has had a cough productive of thin sputum (unsure of color). ( chest pain for 2 weeks under right breast, and going around to ribs, feels week, did not get much sleep). 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 SEPSIS SCREEN: SIRS Screen negative. Sepsis Screen negative. No suspected or confirmed signs of infection present. --12:22 10/24/19 Berry Hulrey R.N. 12:17 10/24/19. BP: 112/62. MAP: 78. HR: 115. RR: 25. O2 saturation: 94% on room air. Temp: 98.2 F (temporal). Pain level now: 8/10. Additional comments: pain is usually 6. --12:22 10/24/19 Berry Hurley R.N. Weight: 111.5 kg stated. Height/Length: 64 inches Per Patient. BMI: 42.2. --12:17 10/24/19 Berry Hurley R.N. Medications Ondansetron Oral (Film 4 mg), q8h as needed. --12:29 10/24/19 Berry Hurley R.N. methylPREDNISolone Oral (Tablet 4 mg), daily. --12:30 10/24/19 Berry Hurley R.N. methylPREDNISolone Oral (Tablet 4 mg) 2 tablets, daily as needed. --12:31 10/24/19 Berry Hurley R.N. oxyCODONE-Acetaminophen Oral (Tablet 5-325 mg) 1 tablet, q6h as needed. --12:32 10/24/19 Berry Hurley R.N. Lisinopril Oral (Tablet 5 mg) 1 tablet, daily. --12:32 10/24/19 Berry Hurley R.N. metroNIDAZOLE External (Gel 1 %), as needed. --12:33 10/24/19 Berry Hurley R.N. Mupirocin External (Ointment 2 %), 2x a day. --12:34 10/24/19 Berry Hurley R.N. Naloxone. --12:34 10/24/19 Berry Hurley R.N. QUEtiapine Fumarate Oral (Tablet 100 mg), daily at bedtime. --12:34 10/24/19 Berry Hurley R.N. QUEtiapine Fumarate Oral (Tablet 25 mg), daily as needed. --12:35 10/24/19 Berry Hurley R.N. Lidocaine HCl External (Cream 5 %), daily. --12:36 10/24/19 Berry Hurley R.N. busPIRone HCl Oral (Tablet 15 mg) 1 tablet, q6h as needed. --12:37 10/24/19 Berry Hurley R.N. Metoprolol Succinate ER Oral (Tablet Extended Release 24 Hour 25 mg) 1 tablet, daily. --12:37 10/24/19 Berry Hurley R.N. metFORMIN HCl ER Oral (Tablet Extended Release 24 Hour 500 mg) 1 tablet, 2x a day. --12:37 10/24/19 Berry Hurley R.N. MiraLax Oral 1 packet, daily as needed. --12:39 10/24/19 Berry Hurley R.N. 2 Clinical Report - Nurses [facility] Emergency Department [address] [place] [address] Phone #: ext- [phone] 10/24/2019 12:16 Patient: CLINTON HAN Sex: F : 1970 Age: 49yprednisoLONE Acetate Ophthalmic (Suspension 1 %), 2x a day. --12:40 10/24/19 Berry Hurley R.N.Lifitegrast 5 , 2x a day. --12:40 10/24/19 Berry Hurley R.N.Pregabalin Oral (Capsule 200 mg), q8h. --12:41 10/24/19 Berry Hurley R.N.DULoxetine HCl Oral (Capsule Delayed Release Particles 60 mg) 1 capsule, daily. --12:41 10/24/19 Berry Hurley R.N.DULoxetine HCl Oral (Capsule Delayed Release Particles 30 mg) 1 capsule, daily. --12:41 10/24/19 Berry Hurley R.N.Baclofen Oral (Tablet 10 mg) 1 tablet, daily as needed. --12:42 10/24/19 Berry Hurley R.N.Baclofen Oral (Tablet 10 mg) 2 tablets, daily as needed, at bedtime. --12:42 10/24/19 Berry Hurley R.N.Rosuvastatin Calcium Oral (Tablet 10 mg), daily. --12:42 10/24/19 Berry Hurley R.N.Belimumab Subcutaneous (Solution Prefilled Syringe 200 mg/mL), once a week. --12:43 10/24/19 Berry Hurley R.N.Exenatide Subcutaneous 2mcg, once a week. --12:43 10/24/19 Berry Hurley R.N.Ferrous Sulfate Iron Oral (Tablet 200 (65 Fe) mg) 1 tablet, 2x a day. --12:44 10/24/19 Berry Hurley R.N.Montelukast Sodium Oral (Tablet 10 mg) 1 tablet, daily at bedtime. --12:44 10/24/19 Berry Hurley R.N.Lantus Subcutaneous 16 units, daily at bedtime. --12:45 10/24/19 Berry Hurley R.N.Protonix Oral (Tablet Delayed Release 40 mg), daily. --12:45 10/24/19 Berry Hurley R.N.Cetirizine HCl Oral (Capsule 10 mg) 1 capsule, daily. --12:46 10/24/19 Berry Hurley R.N.Albuterol Sulfate HFA Inhalation (Aerosol Solution 108 (90 Base) mcg/act), q4h as needed. --12:4610/24/19 Berry Hurley R.N.Rizatriptan Benzoate Oral 10 mg, as needed. --12:46 10/24/19 Berry Hurley R.N.Brimonidine Tartrate Ophthalmic, daily as needed. --12:47 10/24/19 Berry Hurley R.N.Empagliflozin Oral (Tablet 25 mg), daily. --12:47 10/24/19 Berry Hurley R.N.Cyanocobalamin Oral (Tablet 1000 mcg), daily. --12:47 10/24/19 Berry Hurley R. N.Ergocalciferol Oral (Capsule 82760 unit), daily. --12:48 10/24/19 Berry Hurley R.N.AllergiesKiwi.LamoTRIgine.(rash) --12:29 10/24/19 Berry Hurley R.N.Opiod. --12:48 10/24/19 Berry Hurley R.N.Ondansetron. --12:48 10/24/19 Berry Hurley R.N.PROBLEMS:Compressed disc.Diabetes Mellitus.Degenerative Joint Disease.Acute Pain.Cellulitis.Back Pain.Spinal Injury.Neck Pain.PCOS.Gall bladder.Insulin resistance. 3 Clinical Report - Nurses [facility] Emergency Department [address] [place] [address] Phone #: ext- [phone] 10/24/2019 12:16 Patient: CLINTON HAN Sex: F : 1970 Age: 49yIrritable bowel syndrome (disorder).Intervertebral Disc Disease.Fibromyalgia.IBS.Lupus.Mild lupus with systemic tissue disease.Arthritis.DDD. --12:49 10/24/19 Berry Hurley R.N.ADDITIONAL SURGERIES:Gastric bypass.Hysterectomy (Partial).Partial hysterectomy.Right shoulder.Right Shoulder.James-en-Y gastrojejunostomy.Sinus.Sinus Surgery. --12:49 10/24/19 Berry Hurley R.N.HistoryPAST MEDICAL HX: Immunizations: up-to-date. Last normal menstrual period- 2004. The patient hashad a hysterectomy.SOCIAL HX: Never smoker. Occasional alcohol use. No drug use. She was offered HIV testing butdeclined and hepatitis C testing but declined. She has not traveled outside the [place]Infectious disease exposure: No infectious disease exposure. Patient is not a known carrier of tuberculosis,hepatitis, HIV, MRSA or VRE. Patient is not a known carrier of CRE.SELF HARM ASSESSMENT: Self harm assessment was performed. The patient answered "no" to thequestion(s) "Have you recently felt down, depressed, or hopeless?", "Do you have thoughts of harming orkilling yourself?", "Do you have a plan for harming or killing yourself?", "Have you recently had thoughtsabout harming or killing others?", "Do you have any dangerous items in your possession?", "Have younoticed less interest or pleasure in doing things?", "Are you here because you tried to hurt yourself?" and"Have you ever tried to hurt yourself before today?".ABUSE ASSESSMENT: Abuse assessment. Abuse denied. No suspicion of abuse. No report of abuse.NUTRITIONAL RISK ASSESSMENT: The nutritional risk assessment revealed no deficiencies.FUNCTIONAL ASSESSMENT: Functional assessment: no impairments noted.LEARNING NEEDS ASSESSMENT: The learning needs assessment revealed no barriers.FALL RISK ASSESSMENT: Fall risk assessment completed. No risk factors identified. 4 Clinical Report - Nurses [facility] Emergency Department [address] [place] [address] Phone #: ext- [phone] 10/24/2019 12:16 [id number] Sex[facility] F : 1970 Age: 49y SKIN INTEGRITY ASSESSMENT: Skin integrity risk assessment completed. No skin integrity risk identified. --12:22 10/24/19 Berry Hurley R.N. Interventions Identification band on patient. To treatment room. --12:22 10/24/19 Berry Hurley R.N.PHYSICAL ASSESSMENT GENERAL / NEURO / PSYCH: Alert. Oriented X 4. Appears in no acute distress. HEENT: Mucous membranes are pink. RESPIRATORY: The patient can speak in full sentences. Right upper costochondral tenderness. The tenderness reproduces the patient's subjective complaint. Decreased breath sounds. CVS: Cardiac rhythm: sinus tachycardia. Capillary refill less than 2 seconds. GI / : Abdomen soft and nontender. Bowel sounds within normal limits. SKIN: Skin is warm and dry. Normal skin turgor. --12:26 10/24/19 Berry Hurley R.N.NURSING PROGRESS NOTES laboratory monitor and NIBP monitor placed on patient; monitor alarms on. Patient gowned. Reassurance given. Two patient identifiers checked. Call light placed in reach. Side rails up x 2. Bed placed in lowest position. Brakes of bed on. Patient ready for evaluation- ED physician and PA notified. --12:23 10/24/19 Berry Hurley R.N. EKG time: (12:24 10/24/2019). EKG was performed by a nurse and shown to the ED physician and PA. --12:25 10/24/19 Berry Hurley R.N. 12:40 10/24/19. Patient transported to radiology by wheelchair with tech. --12:50 10/24/19 Berry Hurley R.N. 12:46 10/24/19. Patient returned from radiology by wheelchair with tech. --12:51 10/24/19 Berry Hurley R.N. 12:54 10/24/2019 Duoneb Neb TX Nebulizer 1 unit dose given. Given by the nurse. Allergies verified and confirmed 5 rights. Information reviewed with patient including reason for taking this medication, signs of allergic reaction and p recautions. Verbalizes understanding. --12:55 10/24/19 Berry Hurley R.N. 12:30 10/24/19. BP: 109/72. MAP: 84. HR: 116. RR: 22. O2 saturation: 91% on room air. --12:56 10/24/19 Berry Hurley R.N. 12:45 10/24/19. BP: 107/67. MAP: 80. HR: 116. RR: 24. O2 saturation: 93% on nasal cannula at 2 liters/minute. --12:57 10/24/19 Berry Hurley R.N. 13:23 10/24/2019 Site #1 started via IV in the right antecubital space with an 20g angiocath, with aseptic technique and good blood return; one attempt. --13:23 10/24/19 Berry Hurley R.N. Patient ID band checked for patient name and birthdate: patient confirmed. Instructions provided to collect clean catch urine and patient verbalized understanding. Clean catch urine collected; sample sent to lab for urinalysis. Specimen labeled in the presence of the patient. --13:23 10/24/19 Berry Hurley R.N. 5 Clinical Report - Nurses [facility] Emergency Department [address] [place] [address] Phone #: ext- [phone] 10/24/2019 12:16 Patient: CLINTON HAN Sex: F : 1970 Age: 49yPatient transported to [place] by wheelchair with transporter. --13:28 10/24/19 Berry Hurley R.N.13:00 10/24/19. BP: 97/57. MAP: 70. HR: 104. RR: 18. O2 saturation: 99% on room air. --13:29 10/24/19Berry Hurley R.N.Patient returned from CT by wheelchair with tech. --13:43 10/24/19 Berry Hurley R.N.13:43 10/24/19. BP: 105/62. MAP: 76. HR: 108. RR: 22. O2 saturation: 94%. Pain level now: 11/27.--13:43 10/24/19 Berry Hurley R.N.( pt states that she did not take her percocet that she normally takes, and is in pain, contract technical writer asked Dr. Gay the pt could have a percocet and he agreed). --13:46 10/24/19 Berry Hurley R.N.13:00 10/24/19. Patient waiting for evaluation and lab and radiology results. ( waiting on test results).--14:20 10/24/19 Berry Hurley R.N.14:00 10/24/19. BP: 99/62. MAP: 74. HR: 109. RR: 31. O2 saturation: 89%. Additional comments: 2 litersapplied and up to 93% Dr. Baez informed. --14:22 10/24/19 Berry Hurley R.N.14:15 10/24/19. BP: 98/63. MAP: 74. HR: 106. RR: 24. O2 saturation: 93% on nasal cannula at 2liters/minute. --14:22 10/24/19 Berry Hurley R.N.( covid 19 test administered and sent to lab after name and verified). --14:28 10/24/19 Berry Hurley R.N.13:24 10/24/2019 Dufredd[place]achna Ann [place] discontinued due to improvement in patient condition. --14:42 10/24/19Berry Hurley R.N.13:47 10/24/2019 Percocet (oxyCODONE- Acetaminophen) PO Tablets 1 tab given. Allergies verified andconfirmed 5 rights. Information reviewed with patient including reason for taking this medication, signs ofallergic reaction, precautions and sedative warning. Verbalizes understanding. --13:47 10/24/19 Berry Hurley R.N.14:18 10/24/2019 Percocet PO Response: pain is improving. Symptoms have improved. --14:19 10/24/19Berry Hurley R.N.14:42 10/24/2019 Started 500 mg of Zithromax (Azithromycin) IVPB in bag #1 250 mL; at 250 mL/hr over 1hour(s) via site #1. via IV pump. Allergies verified and confirmed 5 rights. IV patency established. IV sitechecked: no pain, redness, or swelling. IV flushed thoroughly pre- and post-medication administration.Information reviewed with patient including reason for taking th is medication, signs of allergic reaction andprecautions. Verbalizes understanding. --14:42 10/24/19 Berry Hurley R.N.14:43 10/24/2019 Dexamethasone IVP 10 mg given over 2 minute(s) via site #1. Allergies verified andconfirmed 5 rights. IV patency established. IV site checked: no pain, redness, or swelling. IV flushed 6 Clinical Report - Nurses [facility] Emergency Department [address] [place] [address] Phone #: ext- [phone] 10/24/2019 12:16 Patient: CLINTON HAN Sex: F : 1970 Age: 49y thoroughly pre- and post-medication administration. IVP given by RN. Information reviewed with patient including reason for taking this medication, signs of allergic reaction and precautions. Verbalizes understanding. --14:43 10/24/19 Berry Hurley R.N. ( oob to void gait steady no shortness of breath noted). --15:04 10/24/19 Berry Hurley R.N. 14:30 10/24/19. BP: 95/70. MAP: 78. HR: 107. RR: 23. O2 saturation: 96% on nasal cannula at 2 liters/minute. --15:13 10/24/19 Berry Hurley R.N. 14:45 10/24/19. BP: 95/70. MAP: 78. HR: 104. RR: 23. O2 saturation: 94% on nasal cannula at 2 liters/minute. --15:14 10/24/19 Berry Hurley R.N. 15:00 10/24/19. BP: 100/75. MAP: 83. HR: 102. RR: 24. O2 saturation: 94% on nasal cannula at 2 liters/minute. --15:14 10/24/19 Berry Hurley R.N. 15:14 10/24/19. BP: 111/75. MAP: 87. HR: 101. RR: 22. O2 saturation: 94% on nasal cannula at 2 liters/minute. --15:15 10/24/19 Berry Hurley R.N. 15:30 10/24/19. BP: 92/68. MAP: 76. HR: 105. RR: 24. O2 saturation: 95% on nasal cannula at 2 liters/minute. --15:45 10/24/19 Berry Hurley R.N. 15:45 10/24/19. BP: 91/59. MAP: 69. HR: 102. RR: 24. O2 saturation: 95% on nasal cannula at 2 liters/minute. --15:46 10/24/19 Berry Hurley R.N. ( pt talking on phone with pharmacy, waiting to go to the floor was soon as antibiotic is hung). --15:47 10/24/19 Berry Hurley R.N. 15:52 10/24/2019 Zithromax IVPB via IV site #1 Discontinued: completed. Total amount infused: 250 mL. IV patency established. IV site checked: no pain, redness, or swelling. IV flushed thoroughly. --15:52 10/24/19 Berry Hurley R.N. 15:53 10/24/2019 Started 1 gm of ROCEPHIN (1GM/50ML) (cefTRIAXone Sodium) IVPB in bag #1 50 mL; at 100 mL/hr over 30 minute(s) via site #1. via IV pump. Allergies verified and confirmed 5 rights. IV patency established. IV site checked: no pain, redness, or swelling. IV flushed thoroughly pre- and post-medication administration. Information reviewed with patient including reason for taking this medication, signs of allergic reaction and precautions. Verbalizes understanding. --15:53 10/24/19 Berry Hurley R.N. 16:20 10/24/2019 ROCEPHIN (1GM/50ML) IVPB via IV site #1 Discontinued: infused upon transfer. Total amount infused: 50 mL. IV patency established. IV site checked: no pain, redness, or swelling. IV flushed thoroughly. --16:29 10/24/19 Berry Hurley R.N.DISPOSITION / DISCHARGE Disposition: observation in the Acute Inpatient Unit, Monitored for further evaluation. Transported via 7 Clinical Report - Nurses [facility] Emergency Department [address] [place] [address] Phone #: [phone] 10/24/2019 12:16 Patient: CLINTON HAN Sex: F : 1970 Age: 49y stretcher by nurse with monitor and O2. Report was given to a nurse in person and via visit overview. Report included information regarding patient's care, treatment, allergies and condition including: recent changes, current vital signs and abnormal labs. Report included treatment information regarding medications given or pending. All questions were answered. Report was acknowledged and care was transferred. (Clinton). Bed obtained and ready. Patient's personal items include: purse; items were given to the patient and transported with the patient. Collection of belongings was witnessed by 2 nurses. --16:28 10/24/19 Berry Hurley R.N. Departure time: 16:20 10/24/2019. --16:28 10/24/19 Berry Hurley R.N. 16:20 10/24/19. BP: 102/61. MAP: 74. HR: 96. RR: 18. O2 saturation: 95% on room air. Temp: 98.9 F (oral). Pain level now: 09/27. --16:29 7 Berry Hurley R.N.Locked/Released at 10/24/2019 16:30 by Berry Hurley R.N. Name Value Range Interpretation Code Description Data Glenda rce(s) Supporting Document(s) ID Date Data Source [id number] 10/24/2019 12:24:00 PM EDT [facility] 1 Clinical Report - Physicians/Mid Levels [facility] Emergency Department [address] [place] [address] Phone #: ext- [phone] 10/24/2019 12:16 Patient: CLINTON HAN Sex: F : 1970 Age: 49y Time Seen: 12:25 10/24/2019; initial patient contact. Arrived- By private vehicle. Historian- patient. Disposition decision: 14:28 10/24/2019.HISTORY OF PRESENT ILLNESS Chief Complaint: DYSPNEA and HISTORY OF ASTHMA. This started today and is still present. It has been intermittent. The dyspnea is described as mild and is worsened by walking and cough and is improved by rest. The patient has had a mild cough productive of clear sputum. She has had scant amounts of clear sputum. No fever, sweating episodes, wheezing, chills or calf pain. No foot swelling, anxiety, dizziness, tingling or numbness. No palpitations. She has had mild, dull, aching right-sided chest pain (2 weeks ago, intermittent), currently gone, described as radiating to the back. She has had mild chest soreness (under rt breast radiating to back x 2 weeks, on/off). (Dxed w A. Fibrillation 2 weeks ago; followed by Dr. Cedeno). Similar symptoms previously. Patient has had similar symptoms many times. ( pt has recurrent costochondritis). Recent medical care: Not recently seen/assessed.REVIEW OF SYSTEMS The patient has not had weight loss. No muscle aches, eye irritation, sore throat, nasal discharge or sinus drainage. No nausea, vomiting, abdominal pain, diarrhea or black stools. No bloody stools, headache, fainting episodes, blurred vision or difficulty with urination. No excessive urination, skin rash, enlarged lymph nodes or joint pain. Denies current . feels fatigue and weak. All other systems reviewed and are negative.PAST HISTORY See nurses notes. Mild exercise-induced asthma. Problems: Diabetes Mellitus. Hypercholesterolemia. Obesity. Depression. Chronic Back Pain. Atrial Fibrillation. Anxiety Reaction. Fibromyalgia. IBS. Lupus. Mild lupus with systemic tissue disease. 2 Clinical Report - Physicians/Mid Levels [facility] Emergency Department [address] [place] [address] Phone #: ext- [phone] 10/24/2019 12:16 Patient: CLINTON HAN Sex: F : 1970 Age: 49yArthritis.DDD.Chronic pain.Chronic Fatigue Syndrome [RuleOut].Additional Surgeries:Cholecystectomy.Gastric bypass.Hysterectomy.Partial hysterectomy.Right shoulder.Right Shoulder.James-en-Y gastrojejunostomy.Sinus Surgery.Medications:Ergocalciferol Oral (Capsule 87575 unit), daily.Cyanocobalamin Oral (Tablet 1000 mcg), daily.Empagliflozin Oral (Tablet 25 mg), daily.Brimonidine Tartrate Ophthalmic, daily as needed.Rizatriptan Benzoate Oral 10 mg, as needed.Albuterol Sulfate HFA Inhalation (Aerosol Solution 108 (90 Base) mcg/act), q4h as needed.Cetirizine HCl Oral (Capsule 10 mg) 1 capsule, daily.Protonix Oral (Tablet Delayed Release 40 mg), daily.Lantus Subcutaneous 16 units, daily at bedtime.Montelukast Sodium Oral (Tablet 10 mg) 1 tablet, daily at bedtime.Ferrous Sulfate Iron Oral (Tablet 200 (65 Fe) mg) 1 tablet, 2x a day.Exenatide Subcutaneous 2mcg, once a week.Belimumab Subcutaneous (Solution Prefilled Syringe 200 mg/mL), once a week.Rosuvastatin Calcium Oral (Tablet 10 mg), daily.Baclofen Oral (Tablet 10 mg) 2 tablets, daily as needed, at bedtime.Baclofen Oral (Tablet 10 mg) 1 tablet, daily as needed.DULoxetine HCl Oral (Capsule Delayed Release Particles 30 mg) 1 capsule, daily.DULoxetine HCl Oral (Capsule Delayed Release Particles 60 mg) 1 capsule, daily.Pregabalin Oral (Capsule 200 mg), q8h.Lifitegrast 5 , 2x a day.prednisoLONE Acetate Ophthalmic (Suspension 1 %), 2x a day.MiraLax Oral 1 packet, daily as needed.metFORMIN HCl ER Oral (Tablet Extended Release 24 Hour 500 mg) 1 tablet, 2x a day.Metoprolol Succinate ER Oral (Tablet Extended Release 24 Hour 25 mg) 1 tablet, daily.busPIRone HCl Oral (Tablet 15 mg) 1 tablet, q6h as needed.Lidocaine HCl External (Cream 5 %), daily.QUEtiapine Fumarate Oral (Tablet 25 mg), daily as needed.QUEtiapine Fumarate Oral (Tablet 100 mg), daily at bedtime. 3 Clinical Report - Physicians/Mid Levels [facility] Emergency Department [address] [place] [address] Phone #: [phone] 10/24/2019 12:16 [id number] Sex: F : 1970 Age: 49y Naloxone. Mupirocin External (Ointment 2 %), 2x a day. metroNIDAZOLE External (Gel 1 %), as needed. Lisinopril Oral (Tablet 5 mg) 1 tablet, daily. oxyCODONE-Acetaminophen Oral (Tablet 5-325 mg) 1 tablet, q6h as needed. methylPREDNISolone Oral (Tablet 4 mg) 2 tablets, daily as needed. methylPREDNISolone Oral (Tablet 4 mg), daily. Ondansetron Oral (Film 4 mg), q8h as needed. Allergies: Kiwi. LamoTRIgine.(rash) Ondansetron. Opiod.SOCIAL HISTORY Never smoker. No alcohol use or drug use.ADDITIONAL NOTES The nursing notes have been reviewed with agreement regarding the chief complaint, HPI, ROS, PMH and patient medications and allergies.PHYSICAL EXAM Vital Signs: 10/24/2019 12:17 BP: 112/62. MAP: 78. HR: 115. RR: 25. O2 saturation: 94% on room air. Temp: 98.2 F. Pain level now: 8. Have been reviewed. Tachycardic. Oxygen saturation normal. Appearance: Alert. No acute distress. Eyes: Pupils equal, round and reactive to light. Eyes normal inspection. ENT: Ears normal. Nose normal. Pharynx normal. Uvula midline. Neck: Normal inspection. No jugular venous distention. Neck supple. CVS: Tachycardia. Normal heart rhythm. Heart sounds normal. Pulses normal. Respiratory: No respiratory distress. Mild right upper and anterior chest wall tenderness. The tenderness is well-localized and reproduces the patient's subjective complaint. Mildly decreased air movement in the bases bilaterally. Painless inspiration. Abdomen: Soft and nontender. No organomegaly. Moderately obese. Back: Normal inspection. No CVA tenderness. Skin: Skin warm and dry. Normal skin color. No rash. Normal skin turgor. Extremities: Extremities exhibit normal ROM. No lower extremity edema. No lower extremity edema. Neuro: Oriented X 3. No motor deficit. No sensory deficit. Reflexes normal.LABS, X-RAYS, AND EKG EKG: No acute process. Regular tachycardia (113/min). Sinus tachycardia. Normal ST and T waves. LAD, old septal and inferior infarcts, NAD, same as 11-22-17. EKG unchanged when compared with prior EKG. (Nov 22 2017). The study has been interpreted contemporaneously by me. The EKG appears to be a good tracing. Interpretation time: 12:26 10/24/2019. Chest X-ray: (shallow insp., mild atx/infiltrate lt base, see report). Views: PA and lateral. Technique: 4 Clinical Report - Physicians/Mid Levels [facility] Emergency Department [address] [place] [address] Phone #: ext- [phone] 10/24/2019 12:16 [id number] Sex[facility] F : 1970 Age: 49ypoor inspiration. The X-rays were interpreted by the radiologist. Interpretation time: 13:21 10/24/2019.Laboratory Tests: Laboratory tests have been ordered, with results reviewed and considered in themedical decision making process.Urinalysis: (WHITNEY: 10/24/2019 13:10) ( [facility] 10/24/2019 14:13) Final results Test Result Flag Units (Reference) URINALYSIS URINALYSIS SOURCE R COLOR yellow (NORMAL: Yello CLARITY clear (NORMAL: Clear SPEC GRAVITY 1.015 (1.001 - 1.030 pH 5 (5 - 9) GLUCOSE 1000 A (NORMAL: Negat BILIRUBIN NEG (NORMAL: Negat KETONE NEG (NORMAL: Negat PROTEIN NEG (NORMAL: Negat NITRITE NEG (NORMAL: Negat BLOOD NEG (NORMAL: Negat LEUK EST 100 A (NORMAL: Negat UROBILINOGEN NOR (less than 1.0 MICROSCOPIC See Below WBC 7 - 10 A (NORMAL: NONE RBC 1 - 3 (NORMAL: NONE EPITHELIAL MODERATE A (NORMAL: NONE BACTERIA 1+ SMALL (NORMAL: NONECT CTA CHEST NON-CORONARY W CON INC PP: (WHITNEY: 10/24/2019 13:16) ( [facility] 10/24/2019 13:47) InProgressCT CTA CHEST NON-CORONARY W CON INC PPReason(s): rt sided CP, SOB, high d-dimerTRANSPORTATION: WC IV? IV?(Yes) O2? Oxygen?(No) RoCBC w Diff: (WHITNEY: 10/24/2019 12:40) ( [facility] 10/24/2019 12:59) Final results Test Result Flag Units (Reference) CBC W/AUTOMATED DIFF COMPLETE BLOOD COUNT WBC 11.8 H 10/uL (4.2 - 11.0) RBC 4.72 10/uL (4.20 - 5.40) HEMOGLOBIN 15.1 g/dL (12.0 - 16.0) HEMATOCRIT 46.4 % (37.0 - 47.0) MCV 98.3 fL (81.0 - 101) MCH 32.0 pg (27.0 - 34.0) MCHC 32.5 g/dL (31.0 - 36.0) RDW 11.9 % (11.5 - 14.5) PLATELETS 303 10/uL (150 - 450) MPV 9.6 fL (7.4 - 10.4) NEUT 76.1 % (37.0 - 80.0) LYMPH 13.0 L % (25.0 - 40.0) MONO 7.6 % (3.0 - 8.0) EOS 1.6 % (0.0 - 7.0) BASO 0.8 % (0.0 - 2.5) %IG 0.9 H % (0.0 - 0.0) %NRBC 0.0 % (0.0 - 0.0) #NEUT 8.98 H 10/uL (2.00 - 6.90) #LYMPH 1.54 10/uL (0.60 - 3.40) 5 Clinical Report - Physicians/Mid Levels [facility] Emergency Department [address] [place] [address] Phone #: ext- [phone] 10/24/2019 12:16 Patient: CLINTON HAN Sex: F : 1970 Age: 49y #MONO 0.90 10/uL (0.00 - 0.90) #EOS 0.19 10/uL (0.00 - 0.70) #BASO 0.09 10/uL (0.00 - 0.20) #IG 0.11 H 10/uL (0.00 - 0.10) #NRBC 0.00 10/uL (0.00 - 0.00) MANUAL DIFF NOT INDICATED RBC MORPH NOT INDICATEDCMP: (WHITNEY: 10/24/2019 12:40) ( MsgRcvd 10/24/2019 13:25) Final results Test Result Flag Units (Reference) COMPREHENSIVE METABOLIC PANEL COMPREHENSIVE METABOLIC PANEL SODIUM 139 mEq/L (134 - 153) POTASSIUM 4.3 mEq/L (3.6 - 5.0) CHLORIDE 102 mEq/L (98 - 107) CO2 25 MEQ/L (22 - 30) GLUCOSE 299 H MG/DL (65 - 110) BUN 13 MG/DL (7 - 21) CREATININE 0.8 MG/DL (0.7 - 1.5) BUN/CREAT 16 (8 - 27) TOTAL PROTEIN 5.9 L G/DL (6.3 - 8.2) ALBUMIN 3.7 L G/DL (3.9 - 5.0) GLOBULIN 2.2 L GM/DL (2.4 - 3.2) A/G RATIO 1.7 (0.8 - 2.0) CALCIUM 8.9 MG/DL (8.4 - 10.2) TOTAL BILI 1.1 MG/DL (0.2 - 1.3) ALKALINE PHOS 106 U/L (38 - 126) SGOT/AST 28 U/L (5 - 40) SGPT/ALT 63 H U/L (7 - 56) ANION GAP 12.0 mmol/L (8.0 - 16.0) AGE 49 yrs NON-AA GFR >60 mL/min AFR AMER GFR >60 mL/min Male GFR Interprentation 20-49 yrs >60 mL/min Lbmdkb80-44 yrs >56 mL/min Normal 60-69 yrs >49 mL/min Normal 70-79yrs>42 mL/min Normal 80 and above >35 mL/min Normal Female GFRInterpretation 20-39 yrs >60 mL/min Normal 40-49 yrs >58 mL/minNormal 50-59 yrs >51 mL/min Normal 60-69 yrs >45 mL/min Dijffp02-53 yrs >39 mL/min Normal 80 and above >32 mL/min NormalLipase: (WHITNEY: 10/24/2019 12:40) ( MsgRcvd 10/24/2019 13:25) Final results Test Result Flag Units (Reference) LIPASE 24 U/L (13 - 60)PT/PTT: (WHITNEY: 10/24/2019 12:40) ( [facility] 10/24/2019 13:03) Final results Test Result Flag Units (Reference) PROTIME 11.8 SECONDS (11.0 - 15.5) INR 0.86 L (0.93 - 1.23) PTT 21.7 L SECONDS (24.8 - 36.7) \\BLDo\\INR INTERPRETATION\\BLDx\\ Therapeutic range for Coumadin andrelated oral anticoagulants. -International Normalized Ratio (INR): 2.0 - 3.0 for VenousThrombosis, Pulmonary Embolus, Tissue heart valves, Acute VA Atrial Fibrillation, Valvular heart diseaseand recurrent Systemic Embolism. -International Normalized Ratio (INR): 2.5 - 3.5 forMechanical Prosthetic valve.Troponin-T: (WHITNEY: 10/24/2019 12:40) ( [facility] 10/24/2019 13:26) Final results 6 Clinical Report - Physicians/Mid Levels [facility] Emergency Department [address] [place] [address] Phone #: ext- [phone] 10/24/2019 12:16 Patient: CLINTON HAN Sex: F : 1970 Age: 49y Test Result Flag Units (Reference) TROPONIN T <0.01 NG/ML (0.00 - 0.10) TROPONIN T0.1 ng/ml Recommended as the clinical threshold value forTroponin T. BNP: (WHITNEY: 10/24/2019 12:40) ( [facility] 10/24/2019 13:25) Final results Test Result Flag Units (Reference) BNP 171 H PG/ML (0 - 125) D-Dimer: (WHITNEY: 10/24/2019 12:40) ( MsgRcvd 10/24/2019 13:07) Final results Test Result Flag Units (Reference) D-DIMER QUANT 0.97 H ug/mL (0.27 - 0.50) EKG: (WHITNEY: 10/24/2019 12:33) ( MsgRcvd 10/24/2019 14:26) In Progress Chest 2 View: (WHITNEY: 10/24/2019 12:33) ( MsgRcvd 10/24/2019 12:51) In Progress CHEST 2 VIEWS Reason(s): Shortness of Breath TRANSPORTATION: IV? O2? Oxygen?(No) Room: ED.PROGRESS AND PROCEDURES Course of Care: 13:17 10/24/19. d-dimer high, will do CTA chest to r/o PE 13:35 10/24/19. workup all in and reviewed; pt in CT suite 14:26 10/24/19. CTA chest w IV results in and showing mod. b/l pneumoniae, No PE; pt became slightly hypoxic in ER, added oxygen and will test for Covid-19 and treat w Ceftriaxone/Zithromax IV and Decadron IV; case discussed w Janice Novak, MRI SUPERVISOR hospitalist, will admit 14:31 10/24/19. pt feeling better now. Critical care performed (60 minutes). Time is exclusive of separately billable procedures. Time includes: direct patient care, patient reassessment, coordination of patient care, interpretation of data (laboratory data, chest xrays and prior electrocardiograms) and documentation of patient care- see progress notes. Patient counseled in person regarding the patient's stable condition, test results, diagnosis and need for admission. Patient agrees with plan of care. Disposition: Condition: good and stable. Admit decision based on need for further evaluation, monitoring, telemetry, observation, IV therapy, antibiotics and medications and stabilization of condition.CLINICAL IMPRESSION Bronchopneumonia with hypoxemia. 7 Clinical Report - Physicians/Mid Levels [facility] Emergency Department [address] [place] [address] Phone #: ext- [phone] 10/24/2019 12:16 Patient: CLINTON HAN Sex: F : 1970 Age: 49y Hypoxia.(Electronically signed by James Baez M.D. 10/24/2019 16:36) Name Value Range Interpretation Code Description Data Glenda rce(s) Supporting Document(s) ID Date Data Source [id number] 10/24/2019 12:24:00 PM EDT [facility] Addenda for CLINTON HAN VisitID: [id number] Date: 16:34Med Rec request faxed to [employer] with t-system overview @ 1459T-sysyte overview [facility] @ 1508Metformin discharge insturctions faxed to [employer] @ 1436(Electronically signed by Samuel Warner - 10/24/2019 16:34)11/04/2019 14:22pt was tested for covid-19 in U not ED. Pt called to day for test results she stated that she was supposeto be called with results, service unit operator oil well looked up results and Mello RN told the pt results, this writerfaxed results to [facility](El ectronically signed by Berry Hurley R.N. - 11/04/2019 14:22)11/05/2019 13:30Pt covid test negative, pt was called and left voicemail at 1045 who called back at 1048 and states shewas already aware.(Electronically signed by Keli Paredes R.N. - 11/05/2019 13:30) Name Value Range Interpretation Code Description Data Glenda rce(s) Supporting Document(s) ID Date Data Source [id number] 10/26/2019 07:13:00 AM EDT [facility] Name Value Range Interpretation Code Description Data Glenda rce(s) Supporting Document(s) BASIC METABOLIC PANEL [facility] BASIC METABOLIC PANEL Sodium [Moles/volume] in Serum or Plasma 141 mEq/L 134 - 153 [facility] Potassium [Moles/volume] in Serum or Plasma 4.5 mEq/L 3.6 - 5.0 [facility] Chloride [Moles/volume] in Serum or Plasma 107 mEq/L 98 - 107 [facility] Carbon dioxide, total [Moles/volume] in Serum or Plasma 26 MEQ/L 22 - 30 [facility] Glucose [Mass/volume] in Serum or Plasma 231 MG/DL 65 - 110 H [facility] BUN 20 MG/DL 7 - 21 [facility] al Creatinine [Mass/volume] in Serum or Plasma 0.6 MG/DL 0.7 - 1.5 L [facility] BUN/CREAT 33 8 - 27 H [facility] Calcium [Mass/volume] in Serum or Plasma 9.0 MG/DL 8.4 - 10.2 [facility] Anion gap 3 in Serum or Plasma 8.0 mmol/L 8.0 - 16.0 [facility] AGE 49 yrs [facility] al AFR AMER GFR >60 mL/min [facility] Ho spital NON-AA GFR >60 mL/min [facility] ital Male GFR Inter prentation 20-49 yrs >60 mL/min Normal 50-59 yrs >56 mL/min Normal 60-69 yrs >49 mL/min Normal 70-79yrs >42 mL/min Normal 80 and above >35 mL/min Normal Female GFR Interpretation 20-39 yrs >60 mL/min Normal 40-49 yrs >58 mL/min Normal 50-59 yrs >51 mL/min Normal 60-69 yrs >45 mL/min Normal 70-79 yrs >39 mL/min Normal 80 and above >32 mL/min Normal ID Date Data Source [id number] 10/26/2019 06:54:00 AM EDT [facility] Name Value Range Interpretation Code Description Data Glenda rce(s) Supporting Document(s) CBC W/AUTOMATED DIFF [facility] COMPLETE BLOOD COUNT Leukocytes [#/volume] in Blood by Automated count 13.0 10^3/uL 4.2 - 11.0 H [facility] Erythrocytes [#/volume] in Blood by Automated count 4.09 10^6/uL 4. 20 - 5.40 L [facility] Hemoglobin [Mass/volume] in Blood 13.2 g/dL 12.0 - 16.0 [facility] Hematocrit [Volume Fraction] of Blood by Automated count 40.0 % 3 7.0 - 47.0 [facility] Erythrocyte mean corpuscular volume [Entitic volume] by Auto mated count 97.8 fL 81.0 - 101 [facility] Erythrocyte mean corpuscular hemoglobin [Entitic mass] by Automated count 32.3 pg 27.0 - 34.0 [facility] Erythrocyte mean corpuscular hemoglobin concentration [Mass/volume] by Automated count 33.0 g/dL 31.0 - 36.0 [facility] Erythrocyte distribution width [Ratio] by Automated count 12.0 % 11.5 - 14.5 [facility] Platelets [#/volume] in Blood by Automated count 241 10^3/uL 150 - 45 0 [facility] Platelet mean volume [Entitic volume] in Blood by Automated count 10.4 fL 7.4 - 10.4 [facility] Neutrophils/100 leukocytes in Blood by Automated count 83.9 % 37. 0 - 80.0 H [facility] Lymphocytes/100 leukocytes in Blood by Manual count 10.0 % 25.0 - 40.0 L [facility] Monocytes/100 leukocytes in Blood by Automated count 4.4 % 3.0 - 8.0 [facility] Eosinophils/100 leukocytes in Blood by Automated count 0.0 % 0.0 - 7.0 [facility] Basophils/100 leukocytes in Blood by Automated count 0.2 % 0.0 - 2.5 [facility] %IG 1.5 % 0.0 - 0.0 [facility] % 0.0 - 0.0 [facility] al Neutrophils [#/volume] in Blood by Automated count 10.93 10^3/uL 2. 00 - 6.90 H [facility] Lymphocytes [#/volume] in Blood by Automated count 1.30 10^3/uL 0.60 - 3.40 [facility] Monocytes [#/volume] in Blood by Automated count 0.57 10^3/uL 0.00 - 0.90 [facility] Eosinophils [#/volume] in Blood by Automated count 0.00 10^3/uL 0.00 - 0.70 [facility] Basophils [#/volume] in Blood by Automated count 0.03 10^3/uL 0.00 - 0.20 [facility] #IG 0.20 10^3/uL 0.00 - 0.10 H [facility] #NRBC 0.00 10^3/uL 0.00 - 0.00 [facility] MANUAL DIFF NOT INDICATED [facility] RBC MORPH NOT INDICATED [facility] spital ID Date Data Source [id number] 10/25/2019 08:43:00 [place] [address] RESPIRATORY CARE REPORT ==== ---------NAME------- NUMBER SEX AGE ADMIT DISC. XRAY# F/C MAGDALENE Crawford [id number] F 49 10/24/19 [id number] SB4 O/P DATE OF : 1970 M/R# [id number] #: [id number] [id number] LOCATION: EMERGENCY DEPT EKG 46469 COMP LETE:10/24/19 14:22 EWW [id number] PHYSICIAN: ROXANNE MORRIS Name Value Range Interpretation Code Description Data Glenda rce(s) Supporting Document(s) ID Date Data Source [id number] 10/25/2019 12:10:00 [place] [address] PHONE: [phone] FAX: [phone] Name .................. : GUILLE Crawford Acct Number.................. : [id number] ROOM. ................. : 117-1 MR Number ................... : [id number] Stay type ............. : O/P Discharge Date......... ... : Admit Date ......... : 10/24/19 Admit Phys .................... : ASHLEIGH-FALAN Date of ....... : 1970 Family Phys ................... : UNKNOWN Phone .................. : [phone] Age ................................ : 49 Film# .................. .:[id number] Sex ................................. : F Unsigned transcriptions are preliminary reports and do not represent a medical or legal document DOPPLER VENOUS BILAT LEG 11709 COMPLETE:10/24/19 15:04 [id number] (REASON FOR PROCESS: ABNORMAL D-DIMER BILATERAL LOWER EXTREMITY DUPLEX DOPPLER ULTRASOUND: INDICATION: Abnormal D-dimer. FINDINGS: Normal compressibility is demonstrated at bilateral common femoral, superficial femoral and popliteal veins without internal defects to suggest DVT. Normal color and spectral Doppler is demonstrated with augmentation. IMPRESSION: No DVT in bilateral common femoral veins to the popliteal veins. Electronically Reviewed and Signed By Octavio Chavez M.D. , 10/25/19 12:10, [facility] Transcribe Initials: NIRAV , Transcribe Date: 10/24/19 23:22, Dictation Date: Copy for: ZE KRAUSEREGAN Tejada via fax Copy for: EMERGENCY DEPT via modem Copy for: [facility] REC Page 1 of 1 Name Value Range Interpretation Code Description Data Glenda rce(s) Supporting Document(s) ID Date Data Source [id number] 10/25/2019 11:59:00 AM EDT [facility] [address] [place] [address] PHONE: [phone] FAX: [phone] Name .................. : GUILLE Crawford Acct Number.................. : [id number] ROOM. ................. : 117-1 MR Number ................... : [id number] Stay type ............. : O/P Discharge Date......... ... : Admit Date ......... : 10/24/19 Admit Phys .................... : ROXANNE Date of ....... : 1970 Family Phys ................... : UNKNOWN Phone .................. : [phone] Age ................................ : 49 Film# .................. .:[id number] Sex ................................. : F Unsigned transcriptions are preliminary reports and do not represent a medical or legal document CT CTA CHEST NON-CORONARY Suzette Haskins 71042 COMPLETE:10/24/19 13:46 [facility] [address] Reason(s): rt sided CP, SOB, high d-dimer CTA OF THE CHEST WITH CONTRAST: INDICATION: Chest pain and shortness of breath with elevated D-dimer. FINDINGS: The neck base is clear. There are diffuse patchy infiltrates throughout both lungs. These opacifications have small nodular components to them. The heart is normal in size. No central or subsegmental pulmonary embolism is visualized. No lymphadenopathy. There is no acute upper abdominal abnormality. No acute osseous abnormality. IMPRESSION: Moderate bilateral pneumonia. No central or segmental pulmonary embolism. Motion artifact limits evaluation of the smaller vessels. While performing the above CT examination, radiation dose reduction was accomplished utilizing automated exposure control, adjusting of the mA and kV based on the patient's body size and/or the use of imperative reconstructive techniques. CT dose: 881.0 mGycm Contrast agent in mL: 75 Isovue 370 Method of administration: Intravenous Page 1 of 2 [place] [address] PHONE: [phone] FAX: [phone] Name .................. : GUILLE Crawford Acct Numb er.................. : [id number] ROOM. ................. : 117-1 MR Number ................... : [id number] Stay type ............. : O/P Discharge Date......... ... : Admit Date ......... : 10/24/19 Admit Phys .................... : ROXANNE Date of ....... : 1970 Family Phys ................... : UNKNOWN Phone .................. : [phone] Age ................................ : 49 Film# .................. .:[id number] Sex ................................. : F Unsigned transcriptions are preliminary reports and do not represent a medical or legal document CT CTA CHEST NON-CORONARY W C 77088 COMPLETE:10/24/19 13:46 [facility] [address] Reason(s): rt sided CP, SOB, high d-dimer Electronically Reviewed and Signed By Octavio Chavez M.D. , 10/25/19 11:59, [facility] Transcribe Initials: DZ , Transcribe Date: 10/24/19 15:49, Dictation Date: Copy for: EMERGENCY DEPT via modem Copy for: 710 [facility] REC Page 2 of 2 Name Value Range Interpretation Code Description Data Glenda rce(s) Supporting Document(s) ID Date Data Source [id number] 10/25/2019 11:35:00 [place] [address] PHONE: [phone] FAX: [phone] Name .................. : GUILLE Crawford Acct Number.................. : [id number] ROOM. ................. : 117-1 MR Number ................... : [id number] Stay type ............. : O/P Discharge Date......... ... : Admit Date ......... : 10/24/19 Admit Phys .................... : ASHLEIGH-FALAN Date of ....... : 1970 Family Phys ................... : UNKNOWN Phone .......... ........ : [phone] Age ................................ : 49 Film# .................. .:[id number] Sex ................................. : F Unsigned transcriptions are preliminary reports and do not represent a medical or legal document CHEST 2 VIEWS 12616 COMPLETE:10/24/19 12:51 ARS 88776 Reason(s): Shortness of Breath CHEST X-RAY: PA AND LATERAL VIEWS HISTORY: Shortness of breath. FINDINGS: The patient is taking a shallow inspiration. The heart size is within normal limits. There is some mild infiltrate/atelectasis suspected at the left base. No pleural effusion or pneumothorax is identified. Mild spurring is present at the thoracic spine. IMPRESSION: Shallow inspiration. Suspected mild infiltrate/atelectasis at the left base. Electronically Reviewed and Signed By Kurt Marshall MD , 10/25/19 11:35, [facility] Transcribe Initials: NIRAV , Transcribe Date: 10/24/19 15:53, Dictation Date: Copy for: EMERGENCY DEPT via mode Copy for: [facility] REC Page 1 of 1 Name Value Range Interpretation Code Description Data Glenda rce(s) Supporting Document(s) ID Date Data Source [id number] 10/25/2019 07:36:00 AM EDT [facility] Name Value Range Interpretation Code Description Data Glenda rce(s) Supporting Document(s) Magnesium [Mass/volume] in Serum or Plasma 2.3 MG/DL 1.7 - 2.2 H [facility] ID Date Data Source [id number] 10/25/2019 07:36:00 AM EDT [facility] Name Value Range Interpretation Code Description Data Glenda rce(s) Supporting Document(s) COMPREHENSIVE METABOLIC PANEL [facility] COMPREHENSIVE METABOLIC PANEL Sodium [Moles/volume] in Serum or Plasma 141 mEq/L 134 - 153 [facility] Potassium [Moles/volume] in Serum or Plasma 4.3 mEq/L 3.6 - 5.0 [facility] Chloride [Moles/volume] in Serum or Plasma 106 mEq/L 98 - 107 [facility] Carbon dioxide, total [Moles/volume] in Serum or Plasma 27 MEQ/L 22 - 30 [facility] Glucose [Mass/volume] in Serum or Plasma 179 MG/DL 65 - 110 H [facility] BUN 15 MG/DL 7 - 21 [facility] Creatinine [Mass/volume] in Serum or Plasma 0.6 MG/DL 0.7 - 1.5 L [facility] BUN/CREAT 25 8 - 27 [facility] Protein [Mass/volume] in Serum or Plasma 5.7 G/DL 6.3 - 8.2 L [facility] Albumin [Mass/volume] in Serum or Plasma 3.8 G/DL 3.9 - 5.0 L [facility] Globulin [Mass/volume] in Serum by calculation 1.9 GM/DL 2.4 - 3.2 L [facility] A/G RATIO 2.0 0.8 - 2.0 [facility] Calcium [Mass/volume] in Serum or Plasma 8.8 MG/DL 8.4 - 10.2 [facility] Bilirubin.total [Mass/volume] in Serum or Plasma 0.8 MG/DL 0.2 - 1.3 [facility] Alkaline phosphatase [Enzymatic activity/volume] in Serum or Plasma 95 U/L 38 - 126 [facility] Aspartate aminotransferase [Enzymatic activity/volume] in Serum or Plasma 12 U/L 5 - 40 [facility] Alanine aminotransferase [Enzymatic activity/volume] in Seru m or Plasma 46 U/L 7 - 56 [facility] Anion gap 3 in Serum or Plasma 8.0 mmol/L 8.0 - 16.0 [facility] AGE 49 yrs [facility] NON-AA GFR >60 mL/min [facility] AFR AMER GFR >60 mL/min [facility] Male GFR In terprentation 20-49 yrs >60 mL/min Normal 50-59 yrs >56 mL/min Normal 60-69 yrs >49 mL/min Normal 70-79yrs >42 mL/min Normal 80 and above >35 mL/min Normal Female GFR Interpretation 20-39 yrs >60 mL/min Normal 40-49 yrs >58 mL/min Normal 50-59 yrs >51 mL/min Normal 60-69 yrs >45 mL/min Normal 70-79 yrs >39 mL/min Normal 80 and above >32 mL/min Normal ID Date Data Source [id number] 10/25/2019 07:13:00 AM EDT [facility] Name Value Range Interpretation Code Description Data Glenda rce(s) Supporting Document(s) CBC W/AUTOMATED DIFF [facility] COMPLETE BLOOD COUNT Leukocytes [#/volume] in Blood by Automated count 15.0 10^3/uL 4.2 - 11.0 H [facility] Erythrocytes [#/volume] in Blood by Automated count 4.11 10^6/uL 4. 20 - 5.40 L [facility] Hemoglobin [Mass/volume] in Blood 13.2 g/dL 12.0 - 16.0 [facility] Hematocrit [Volume Fraction] of Blood by Automated count 39.9 % 3 7.0 - 47.0 [facility] Erythrocyte mean corpuscular volume [Entitic volume] by Auto mated count 97.1 fL 81.0 - 101 [facility] Erythrocyte mean corpuscular hemoglobin [Entitic mass] by Automated count 32.1 pg 27.0 - 34.0 [facility] Erythrocyte mean corpuscular hemoglobin concentration [Mass/volume] by Automated count 33.1 g/dL 31.0 - 36.0 [facility] Erythrocyte distribution width [Ratio] by Automated count 12.0 % 11.5 - 14.5 [facility] Platelets [#/volume] in Blood by Automated count 241 10^3/uL 150 - 45 0 [facility] Platelet mean volume [Entitic volume] in Blood by Automated count 9.9 fL 7.4 - 10.4 [facility] Neutrophils/100 leukocytes in Blood by Automated count 84.3 % 37. 0 - 80.0 H [facility] Lymphocytes/100 leukocytes in Blood by Manual count 9.5 % 25.0 - 40.0 L [facility] Monocytes/100 leukocytes in Blood by Automated count 5.5 % 3.0 - 8.0 [facility] Eosinophils/100 leukocytes in Blood by Automated count 0.0 % 0.0 - 7.0 [facility] Basophils/100 leukocytes in Blood by Automated count 0.2 % 0.0 - 2.5 [facility] %IG 0.5 % 0.0 - 0.0 H [facility] %NRBC 0.0 % 0.0 - 0.0 [facility] Neutroph[facility] [#/volume] in Blood by Automated count 12.62 10^3/uL 2. 00 - 6.90 H [facility] Lymphocytes [#/volume] in Blood by Automated count 1.43 10^3/uL 0.60 - 3.40 [facility] Monocytes [#/volume] in Blood by Automated count 0.83 10^3/uL 0.00 - 0.90 [facility] Eosinophils [#/volume] in Blood by Automated count 0.00 10^3/uL 0.00 - 0.70 [facility] Basophils [#/volume] in Blood by Automated count 0.03 10^3/uL 0.00 - 0.20 [facility] #IG 0.08 10^3/uL 0.00 - 0.10 [facility] #NRBC 0.00 10^3/uL 0.00 - 0.00 [facility] ospital MANUAL DIFF NOT INDICATED [facility] RBC MORPH NOT INDICATED [facility] ID Date Data Source [id number] 10/25/2019 01:27:00 AM EDT [facility] Name Value Range Interpretation Code Description Data Glenda rce(s) Supporting Document(s) TROPONIN T <0.01 NG/ML 0.00 - 0.10 [facility] TROPONIN T0.1 ng/ml Recommended as the c linical threshold value forTroponin T. ID Date Data Source [id number] 10/24/2019 06:53:00 PM EDT [facility] Name Value Range Interpretation Code Description Data Glenda rce(s) Supporting Document(s) TROPONIN T <0.01 NG/ML 0.00 - 0.10 [facility] ospital TROPONIN T0.1 ng/ml Recommended as the c linical threshold value forTroponin T. ID Date Data Source [id number] 11/04/2019 06:51:00 AM EDT [facility] Name Value Range Interpretation Code Description Data Glenda rce(s) Supporting Document(s) SARS-CoV-2, NAOMI Not Detected Not Detected [facility] Testing was performed using the kody(R) SARS-CoV-2 test.This test was developed and its performance characteristics determinedby [employer]. This test has not been FDA cleared orapproved. This test has been authorized by FDA under an Emergency UseAuthorization (EUA). This test is only authorized for the duration oftime the declaration that circumstances exist justifying theauthorization of the emergency use of in vitro diagnostic tests fordetection of SARS-CoV-2 virus and/or diagnosis of COVID-19 infectionunder section 564(b)(1) of the Act, 21 U.S.C. 360bbb-3(b)(1), unlessthe authorization is terminated or revoked sooner.When diagnostic testing is negative, the possibility of a falsenegative result should be considered in the context of a patient'srecent exposures and the presence of clinical signs and symptomsconsistent with COVID-19. An individual without symptoms of COVID-19and who is not shedding SARS-CoV-2 virus would expect to have anegative (not detected) result in this assay. ID Date Data Source [id number] 10/24/2019 02:26:00 PM EDT [facility] Name Value Range Interpretation Code Description Data Glenda rce(s) Supporting Document(s) SARS coronavirus 2 RNA [facility] This lab was ordered by [facility] amisha and reported by [facility]. ID Date Data Source [id number] 10/28/2019 03:12:00 PM EDT [facility] Name Value Range Interpretation Code Description Data Glenda rce(s) Supporting Document(s) CULTURE URINE [facility] _CULTURE URINE_$$[id number]$$256863$$[id number]$$426283$$519550$$598387$$116827$$631988$$361373$$ 695939$$947820$$041553$$870388$$726376$$116424$$262591$$429705$$919039$$256955$$ 380707$$287886$$786088$$482452$$487364$$629589$$[id number]$$[id number] -- Continued on next page --Patient: GUILLE Crawford Order: [id number] Page 2Culture: CULTURE URINE Status: Final ==== -- Continued on next page --Patient: GUILLE ALONZO J Order: [id number] Page 2Culture: CULTURE URINE Status: Prelim =====$$[id number]$$[id number] DATE/TIME: 10/28/2019 12:07Culture: CULTURE URINE Status: FinalUrine Culture,Comprehensive: H2Rzyip urogenital flora10,000-25,000 colony forming units per mL Previous result entered on 10/27/2019 03:54 ET Specimen has been received and testing has been initiated.P1 Test performed by: [facility] Yulia GONZALEZ #: [id number] [address] [place] [address] [id number] [facility] [id number] Director : Julito Valero MD NPI #:Retort Engineer : 10/27/[email or web address] REF 10/28/19.1512.XMT.SENT REF ID Date Data Source [id number] 10/24/2019 02:12:00 PM EDT [facility] Name Value Range Interpretation Code Description Data Glenda rce(s) Supporting Document(s) [facility] COLOR yellow NORMAL: Yellow [facility] ospital CLARITY clear NORMAL: Clear [facility] Specific gravity of Urine by Test strip 1.015 1.001 - 1.030 [facility] pH 5 5 - 9 [facility] al Glucose [Mass/volume] in Urine by Test strip 1000 NORMAL: Negat [facility] Bilirubin.total [Presence] in Urine by Test strip NEG NORMAL: Negative [facility] Ketones [Presence] in Urine by Test strip NEG NORMAL: Negative [facility] Protein [Mass/volume] in Urine by Test strip NEG NORMAL: Negat [facility] Nitrite [Presence] in Urine by Test strip NEG NORMAL: Negative [facility] BLOOD NEG NORMAL: Negative [facility] Leukocyte esterase [Presence] in Urine by Test strip 100 NICOLA L: Negative [facility] Urobilinogen [Mass/volume] in Urine by Test strip NOR less yang n 1.0 mg/dL [facility] MICROSCOPIC See Below [facility] WBC 7 - 10 NORMAL: NONE SEEN [facility] Erythrocytes [#/volume] in Urine by Test strip 1 - 3 NORMAL: NON E SEEN [facility] EPITHELIAL MODERATE NORMAL: NONE SEEN A [facility] Bacteria [Presence] in Urine sediment by Light microscopy 1+ SMALL NORMAL: NONE SEEN [facility] ID Date Data Source [id number] 10/24/2019 01:26:00 PM EDT [facility] Name Value Range Interpretation Code Description Data Glenda rce(s) Supporting Document(s) TROPONIN T <0.01 NG/ML 0.00 - 0.10 [facility] ospital TROPONIN T0.1 ng/ml Recommended as the c linical threshold value forTroponin T. ID Date Data Source [id number] 10/24/2019 01:25:00 PM EDT [facility] Name Value Range Interpretation Code Description Data Glenda rce(s) Supporting Document(s) Lipase [Enzymatic activity/volume] in Serum or Plasma 24 U/L 13 - 60 [facility] ID Date Data Source [id number] 10/24/2019 01:25:00 PM EDT [facility] Name Value Range Interpretation Code Description Data Glenda rce(s) Supporting Document(s) COMPREHENSIVE METABOLIC PANEL [facility] COMPREHENSIVE METABOLIC PANEL Sodium [Moles/volume] in Serum or Plasma 139 mEq/L 134 - 153 [facility] Potassium [Moles/volume] in Serum or Plasma 4.3 mEq/L 3.6 - 5.0 [facility] Chloride [Moles/volume] in Serum or Plasma 102 mEq/L 98 - 107 [facility] Carbon dioxide, total [Moles/volume] in Serum or Plasma 25 MEQ/L 22 - 30 [facility] Glucose [Mass/volume] in Serum or Plasma 299 MG/DL 65 - 110 H [facility] BUN 13 MG/DL 7 - 21 [facility] Creatinine [Mass/volume] in Serum or Plasma 0.8 MG/DL 0.7 - 1.5 [facility] BUN/CREAT 16 8 - 27 [facility] Protein [Mass/volume] in Serum or Plasma 5.9 G/DL 6.3 - 8.2 L [facility] Albumin [Mass/volume] in Serum or Plasma 3.7 G/DL 3.9 - 5.0 L [facility] Globulin [Mass/volume] in Serum by calculation 2.2 GM/DL 2.4 - 3.2 L [facility] A/G RATIO 1.7 0.8 - 2.0 [facility] Calcium [Mass/volume] in Serum or Plasma 8.9 MG/DL 8.4 - 10.2 [facility] Bilirubin.total [Mass/volume] in Serum or Plasma 1.1 MG/DL 0.2 - 1.3 [facility] Alkaline phosphatase [Enzymatic activity/volume] in Serum or Plasma 106 U/L 38 - 126 [facility] Aspartate aminotransferase [Enzymatic activity/volume] in Serum or Plasma 28 U/L 5 - 40 [facility] Alanine aminotransferase [Enzymatic activity/volume] in Seru m or Plasma 63 U/L 7 - 56 H [facility] Anion gap 3 in Serum or Plasma 12.0 mmol/L 8.0 - 16.0 [facility]GE 49 [facility] >60 mL/min [facility] AFR AMER GFR >60 mL/min [facility] Male GFR In terprentation 20-49 yrs >60 mL/min Normal 50-59 yrs >56 mL/min Normal 60-69 yrs >49 mL/min Normal 70-79yrs >42 mL/min Normal 80 and above >35 mL/min Normal Female GFR Interpretation 20-39 yrs >60 mL/min Normal 40-49 yrs >58 mL/min Normal 50-59 yrs >51 mL/min Normal 60-69 yrs >45 mL/min Normal 70-79 yrs >39 mL/min Normal 80 and above >32 mL/min Normal ID Date Data Source [id number] 10/24/2019 01:25:00 PM EDT [facility] Name Value Range Interpretation Code Description Data Glenda rce(s) Supporting Document(s) BNP 171 PG/ML 0 - 125 H [facility] ID Date Data Source [id number] 10/24/2019 01:07:00 PM EDT [facility] Name Value Range Interpretation Code Description Data Glenda rce(s) Supporting Document(s) Fibrin D-dimer FEU [Mass/volume] in Platelet poor plasma 0.97 ug /mL 0.27 - 0.50 H [facility] ID Date Data Source [id number] 10/24/2019 01:03:00 PM EDT [facility] Name Value Range Interpretation Code Description Data Glenda rce(s) Supporting Document(s) Prothrombin time (PT) 11.8 SECONDS 11.0 - 15.5 [facility] INR in Platelet poor plasma by Coagulation assay 0.86 0.93 - 1. 23 L [facility] aPTT in Blood by Coagulation assay 21.7 SECONDS 24.8 - 36.7 L [facility] \\BLDo\\INR INTERPRETATION\\BLDx\\ Therapeutic range for Coumadin and related oral anticoagulants. - International Normalized Ratio (INR): 2.0 - 3.0 for Venous Thrombosis, Pulmonary Embolus, Tissue heart valves, Acute VA Atrial Fibrillation, Valvular heart disease and recurrent Systemic Embolism. - International Normalized Ratio (INR): 2.5 - 3.5 for Mechanical Prosthetic valve. ID Date Data Source [id number] 10/24/2019 12:59:00 PM EDT [facility] Name Value Range Interpretation Code Description Data Glenda rce(s) Supporting Document(s) CBC W/AUTOMATED DIFF [facility] COMPLETE BLOOD COUNT Leukocytes [#/volume] in Blood by Automated count 11.8 10^3/uL 4.2 - 11.0 H [facility] Erythrocytes [#/volume] in Blood by Automated count 4.72 10^6/uL 4. 20 - 5.40 [facility] Hemoglobin [Mass/volume] in Blood 15.1 g/dL 12.0 - 16.0 [facility] Hematocrit [Volume Fraction] of Blood by Automated count 46.4 % 3 7.0 - 47.0 [facility] Erythrocyte mean corpuscular volume [Entitic volume] by Auto mated count 98.3 fL 81.0 - 101 [facility] Erythrocyte mean corpuscular hemoglobin [Entitic mass] by Automated count 32.0 pg 27.0 - 34.0 [facility] Erythrocyte mean corpuscular hemoglobin concentration [Mass/volume] by Automated count 32.5 g/dL 31.0 - 36.0 [facility] Erythrocyte distribution width [Ratio] by Automated count 11.9 % 11.5 - 14.5 [facility] Platelets [#/volume] in Blood by Automated count 303 10^3/uL 150 - 45 0 [facility] Platelet mean volume [Entitic volume] in Blood by Automated count 9.6 fL 7.4 - 10.4 [facility] Neutrophils/100 leukocytes in Blood by Automated count 76.1 % 37. 0 - 80.0 [facility] Lymphocytes/100 leukocytes in Blood by Manual count 13.0 % 25.0 - 40.0 L [facility] Monocytes/100 leukocytes in Blood by Automated count 7.6 % 3.0 - 8.0 [facility] Eosinophils/100 leukocytes in Blood by Automated count 1.6 % 0.0 - 7.0 [facility] Basophils/100 leukocytes in Blood by Automated count 0.8 % 0.0 - 2.5 [facility] %IG 0.9 % 0.0 - 0.0 [facility] %NR[facility] 0.0 [facility] [#/volume] in Blood by Automated count 8.98 10^3/uL 2.00 - 6.90 H [facility] Lymphocytes [#/volume] in Blood by Automated count 1.54 10^3/uL 0.60 - 3.40 [facility] Monocytes [#/volume] in Blood by Automated count 0.90 10^3/uL 0.00 - 0.90 [facility] Eosinophils [#/volume] in Blood by Automated count 0.19 10^3/uL 0.00 - 0.70 [facility] Basophils [#/volume] in Blood by Automated count 0.09 10^3/uL 0.00 - 0.20 [facility] #IG 0.11 10^3/uL 0.00 - 0.10 [facility] #NRBC 0.00 10^3/uL 0.00 - 0.00 [facility] MANUAL DIFF NOT INDICATED [facility] RBC MORPH NOT INDICATED [facility] ID Date Data Source [id number] 10/24/2019 05:10:00 PM EDT [facility] Name Value Range Interpretation Code Description Data Glenda rce(s) Supporting Document(s) Hemoglobin A1c/Hemoglobin.total in Blood 10.0 % 4.4 - 6.1 H [facility] {A1]{HB] ID Date Data Source [id number] 07/20/2019 07:32:15 PM EDT [facility] Name Value Range Interpretation Code Description Data Glenda rce(s) Supporting Document(s) Progress Note [facility] [id number] lbm [file] [id number]= ID Date Data Source GATS (NEGATIVE STREP SCREEN) 04/10/2019 12:00:00 AM EST eCW1 ([facility]) Name Value Range Interpretation Code Description Data Glenda rce(s) Supporting Document(s) FULL REPORT IN LAB NOTES (eCW and [facility]). GATS CULTURE (NEG STREP SCR) eCW1 ([facility]) Procedure Social History Code Duration Value Status Description Data Source(s ) Alcohol intake 01/03/2020 12:00:00 AM EDT Current non-d carisa of alcohol (finding) completed Current non-drinker of alcohol (finding) [facility] Tobacco use and exposure 01/03/2020 12:00:00 AM EDT Never used co mpleted Never used [facility] Smoking 01/03/2020 12:00:00 AM EDT Never smoker completed Never s moker [facility] Alcohol intake 07/13/2019 12:00:00 AM EDT Current non-d carisa of alcohol (finding) completed Current non-drinker of alcohol (finding) [facility] Vital Signs ID Date Data Source UNK Name Value Range Interpretation Code Description Data Source(s) Diastolic blood pressure 85 mm[Hg] 85 mm[Hg] eCW1 ([facility]) Systolic blood pressure 121 mm[Hg] 121 mm[Hg] e CW1 ([facility]) Body temperature [degF] eCW1 ([facility]) Respiratory rate 16 /min 16 /min eCW1 ([facility]) Heart rate 98 /min 98 /min eCW1 ([facility]) Body mass index (BMI) [Ratio] 43.25 kg/m2 43.25 kg/m2 eCW1 ([facility]) Body height 64 [in_us] 64 [in_us] eCW1 ([facility]) Body weight Measured 252 [lb_av] 252 [lb_av] eC W1 ([facility]) ID Date Data Source [id number] 01/05/2020 03:06:09 PM [facility] Name Value Range Interpretation Code Description Data Source(s) WEIGHT RECORDED 248 lb 248 lb [facility] Body height Measured 64.02 in 64.02 in [facility] ID Date Data Source [id number] 11/05/2019 01:31:[address] [facility] Name Value Range Interpretation Code Description Data Source(s) WEIGHT RECORDED 246.00 pounds 246.00 pounds [facility] Height 64 Inches 064 Inches [facility] Patient Treatment Plan of Care Planned Activity Planned Date Details Description Data Source (s) methylPREDNISolone 4 MG Oral Tablet Therapy Pack (MEDR OL DOSEPACK) 01/03/2020 12:00:00 AM [facility] Oxycodone Hydrochloride 5 MG Oral Tablet 12/15/2019 12:00:00 AM [facility] 3 ML Insulin Glargine 100 UNT/ML Pen Injector [Lantus] 12/13/2019 12:00:00 AM [facility] Belimumab 200 MG/ML Subcutaneous Solution Auto-injecto r (BENLYSTA) 07/13/2019 12:00:00 AM [facility] methylPREDNISolone 4 MG Oral Tablet Therapy Pack (MEDR OL (LAZ)) 04/26/2019 12:00:00 AM [facility] Sulfamethoxazole 800 MG / Trimethoprim 160 MG Oral Tab let [Bactrim] 04/10/2019 12:00:00 AM EST eCW1 ([facility])
--- NOTE | 2020-05-06 13:43 | REP ---
INDICATION: DYSPNEA/COUGH. COMPARISON: 11/13/2019. TECHNIQUE: SINGLE PORTABLE AP VIEW OF THE CHEST WAS PERFORMED. FINDINGS: THERE IS NO ACUTE INFILTRATE OR PULMONARY EDEMA. LUNGS ARE CLEAR. HEART IS NOT SIGNIFICANTLY ENLARGED. MEDIASTINAL SILHOUETTE IS UNREMARKABLE. THE VISUALIZED OSSEOUS STRUCTURES ARE INTACT. IMPRESSION: NO ACUTE PULMONARY DISEASE. <Electronically signed by Naveen Torres > 05/06/20 [id number]
[2020-05-06 14:12] LABS: BASO # 0.1 10^3/uL (0.0-0.2); BASO % 0.3 % (0.0-1.0); EOS # 0.1 10^3/uL (0.0-0.5); EOS % 0.5 % (0.0-3.0); HEMATOCRIT 44.3 % (36.0-47.0); HEMOGLOBIN 14.2 g/dl (12.0-15.5); LYMPH # 1.1 10^3/uL (1.5-5.0); LYMPH % 7.4 % (24.0-44.0); MEAN CORPUSCULAR HEMOGLOBIN 31.2 pg (27.0-33.0); MEAN CORPUSCULAR HGB CONC 32.1 g/dl (32.0-36.5); MEAN CORPUSCULAR VOLUME 97.4 fl (80.0-96.0); MONO # 0.9 10^3/uL (0.0-0.8); MONO % 5.8 % (0.0-5.0); NEUTROPHILS # 12.7 10^3/uL (1.5-8.5); NEUTROPHILS % 85.7 % (36.0-66.0); PLATELET COUNT, AUTOMATED 222 10^3/uL (150-450); RED BLOOD COUNT 4.55 10^6/uL (4.00-5.40); WHITE BLOOD COUNT 14.9 10^3/uL (4.0-10.0)
--- OUTSIDE RECORDS SUMMARY | 2020-05-06 14:17 | CCD ---
Author Author [facility] Organization [facility] Address Unknown Phone Unavailable Care Team Providers Care Drying Tunnel Operator Name Role Phone Radha HENRY JAGDEEP Unavailable Unavailable TURRIN, JAMES Unavailable Unavailable TURRIN, JAMES Unavailable Unavailable TURRIN, JAMES Unavailable Unavailable TURRIN, JAMES Unavailable Unavailable Ashleigh Falanga, A Janice WORM PICKER Unavailable Unavailable [place] Falanga, A Janice WORM PICKER Unavailable Unavailable Ashleigh Falanga, A Janice WORM PICKER Unavailable Unavailable [place] Falanga, A Janice WORM PICKER Unavailable Unavailable [place] Falanga, A Janice WORM PICKER Unavailable Unavailable Ashleigh Falanga, A Janice WORM PICKER Unavailable Unavailable Ashleigh Falanga, A Janice WORM PICKER Unavailable Unavailable [place] Falanga, A Janice WORM PICKER Unavailable Unavailable [place] Falanga, A Janice WORM PICKER Unavailable Unavailable [place] Falanga, A Janice WORM PICKER Unavailable Unavailable Ashleigh Falanga, A Janice WORM PICKER Unavailable Unavailable [place] Falanga, A Janice WORM PICKER Unavailable Unavailable Ashleigh Falanga, A Janice WORM PICKER Unavailable Unavailable [place] Falanga, A Janice WORM PICKER Unavailable Unavailable [place] Falanga, A Janice WORM PICKER Unavailable Unavailable [place] Falanga, A Janice WORM PICKER Unavailable Unavailable [place] Falanga, A Janice WORM PICKER Unavailable Unavailable Ashleigh Falanga, A Janice WORM PICKER Unavailable Unavailable Ashleigh Falanga, A Janice WORM PICKER Unavailable Unavailable [place] Falanga, A Janice WORM PICKER Unavailable Unavailable [place] Falanga, A Janice WORM PICKER Unavailable Unavailable [place] Falanga, A Janice WORM PICKER Unavailable Unavailable Ashleigh Falanga, A Janice WORM PICKER Unavailable Unavailable Ashleigh Falanga, A Janice WORM PICKER Unavailable Unavailable Ashleigh Falanga, A Janice WORM PICKER Unavailable Unavailable Ashleigh Falanga, A Janice WORM PICKER Unavailable Unavailable [place] Falanga, A Janice WORM PICKER Unavailable Unavailable Ashleigh Falanga, A Janice WORM PICKER Unavailable Unavailable [place] Falanga, A Janice WORM PICKER Unavailable Unavailable Ashleigh Falanga, A Janice WORM PICKER Unavailable Unavailable BERRY BEJARANO MD Unavailable Unavailable [...] NOT IN PROVIDER Unavailable Unavailable DESJARLAIS, SARAH CRYPTOLOGIC TECHNICIAN Unavailable Unavailable DESJARLAIS, SARAH CRYPTOLOGIC TECHNICIAN Unavailable Unavailable DESJARLAIS, SARAH CRYPTOLOGIC TECHNICIAN Unavailable Unavailable DESJARLAIS, SARAH CRYPTOLOGIC TECHNICIAN Unavailable Unavailable DESJARLAIS, SARAH CRYPTOLOGIC TECHNICIAN Unavailable Unavailable DESJARLAIS, SARAH CRYPTOLOGIC TECHNICIAN Unavailable Unavailable DESJARLAIS, SARAH CRYPTOLOGIC TECHNICIAN Unavailable Unavailable DESJARLAIS, SARAH CRYPTOLOGIC TECHNICIAN Unavailable Unavailable DESJARLAIS, SARAH CRYPTOLOGIC TECHNICIAN Unavailable Unavailable Re-disclosure Warning The records that [...] is protected by Article 27-F of the [facility] Public Health law. If you continue you may have access to information: Regarding HIV / AIDS; Provided by facilities licensed or operated by the [facility] Office of Mental Health; or Provided by the [facility] Office for People With Developmental Disabilities. If such information is present, then the following [facility] mandated warning applies: This information has been [...] law may result in a fine or custodial sentence or both. A general authorization for the release of medical or other information is NOT sufficient authorization for further disc losure. Allergies and Adverse Reactions Type Description Substance Reaction Status Data Source(s ) Food allergy KIWI FRUIT EXTRACT KIWI FRUIT EXTRACT [facility] Drug allergy LAMOTRIGINE LAMOTRIGINE [facility] Drug allergy ONDANSETRON ONDANSETRON [facility] Kiwi Kiwi Kiwi throat swelling Active eCW1 ([facility]) Lamotrigine Lamotrigine Lamotrigine Rash Active eCW1 ([facility]) Family History Family Member Name Family Member Gender Family Member Status Date o f Status Description Data Source(s) Unknown Unknown Problem MEDENT ([facility] ) Unknown Unknown Problem [facility]ENT ([facility] ) Unknown Unknown Problem [facility]ENT ([facility] ) Unknown Unknown Problem MEDENT ([facility] ) Unknown Female Problem MEDENT ([facility] ) Encounters Encounter Providers Location Date Indications Data Source(s ) Outpatient Attender: CORRINA BEJARANO MD 07/03/2020 12:00:00 A [facility] Outpatient Attender: JAGDEEP HENRY 05/02/2020 03:00:00 PM [facility] Outpatient Attender: JAGDEEP HENRY 04/17/2020 02:00:00 PM [facility] Outpatient Attender: SARAH BELCHER NP 04/04/2020 02: 00:00 PM [facility] Outpatient Attender: JAGDEEP HENRY 03/27/2020 02:00:00 PM [facility] Outpatient Attender: JAGDEEP HENRY 02/08/2020 01:00:00 PM [facility] Outpatient Attender: CORRINA BEJARANO MD 01/31/2020 12:00:00 A [facility] Outpatient Attender: JAGDEEP HENRY 01/20/2020 01:00:00 PM [facility] Outpatient Attender: CORRINA BEJARANO MD 01/17/2020 12:00:00 A [facility] Outpatient Attender: CORRINA BEJARANO MD [id number] 2019 12:00:00 AM EDT - 01/04/2020 12:00:00 AM EDT Systemic lupus erythematosus, unspecified [facility] Systemic lupus erythematosus, unspecifie d Outpatient Attender: JAGDEEP MEJÍAD 12/23/2019 03:00:00 PM [facility] Outpatient Referrer: PROVIDER SYSTEM IN 11/26/2019 1 1:33:00 AM EDT new onset seizure [facility] new onset seizure Outpatient Attender: Janice Feliz FNPAttender: ALEXANDRA REYESDale YOSVANY 10/24/2019 12:24:00 PM EDT - 10/26/2019 01:00:00 PM EDT [facility] Patient discharged. Outpatient Attender: CORRINA BEJARANO MD [id number] 2019 12:00:00 AM EDT - 07/13/2019 10:39:22 AM EDT Systemic lupus erythematosus, unspecified [facility] Systemic lupus erythematosus, unspecifie d [facility] [address] [address] 04/10/2019 12:00:00 AM EST [facility]) Medications Medication Brand Name Start Date Product Form Dose Route Admi nistrative Instructions Pharmacy Instructions Status Indications Reaction Description Data Source(s) methylPREDNISolone 4 MG Oral Tablet Therapy Pack (MEDROL DOS EPACK) [id number] 01/03/2020 12:00:00 AM EDT active follow package directions [facility] Oxycodone Hydrochloride 5 MG Oral Tablet oxyCODONE HCl 5 MG Oral Tablet (ROXICODONE) oxyCODONE HCl 5 MG Oral Tablet (ROXICODONE) 12/15/2019 12:00:00 AM EDT active [facility] 3 ML Insulin Glargine 100 UNT/ML Pen Inj barrett [Lantus] Lantus SoloStar 100 UNIT/ML Subcutaneous Solution Pen-injector Lantus SoloStar 100 UNIT/ML Subcutaneous Solution Pen-injector 12/13/2019 12:00:00 AM EDT active [facility] Belimumab 200 MG/ML Subcutaneous Solution Auto-injector (PANKAJ LYSTA) [id number] 07/13/2019 12:00:00 AM EDT 200 mg Subcutaneous active Inject 1 mL into the skin every 7 (seven) days [facility] methylPREDNISolone 4 MG Oral Tablet Therapy Pack (MEDROL (PA K)) [id number] 04/26/2019 12:00:00 AM EST 8 mg Oral aborted Take 2 tablets by mouth Two Times Daily follow package directions [facility] Sulfamethoxazole 800 MG / Trimethoprim 1 60 MG Oral Tablet [Bactrim] Bactrim DS 800-160 MG Bactrim DS 800-160 MG 04/10/2019 12:00:00 AM EST active 1 tablet eCW1 ([facility]) Insurance Providers Payer name Policy type / Coverage type Policy ID Covered alliance party ID Covered alliance party's relationship to fabian Policy Fabian Plan Information [facility] [id number] [id number] [facility] [id number] [facility] [id number] [facility] O [id number] C [id number] U [id number] Self [id number] [facility] HUMANA - O/P [id number] 01 [id number] ANSI-Not a Secondary Insurance [id number] ANSI-Commercial [id number] [facility] Claims F [id number] SELF [id number] [facility] Claims F [id number] SELF [id number] [facility] CLAIMS PAM -O/P [id number] 01 [id number] [facility] Health Maintenance Organization (HMO) [id number] Family Dependent [id number] [facility] (2017) Health Maintenance Organization (HMO) [id number] Family Dependent [id number] [facility] Health Maintenance Organization (HMO) [id number] Family Dependent [id number] [facility] (2018) Health Maintenance Organization (HMO) [id number] Family Dependent [id number] [facility] [id number] [email or web address] [id number] [facility] Health Maintenance Organization (HMO) [id number] Family Dependent [id number] [facility] [id number] HU2 [id number] U [id number] Spouse [id number] U [id number] Self [id number] [facility] Health Maintenance Organization (HMO) [id number] Family Dependent [id number] [facility] [id number] HU2 [id number] U [id number] Spouse [id number] SELF PAY ONLY UNAVAILABLE SP UNAV AILABLE [facility] Commercial [id number] Family Dependent [id number] [employer]/ AD O [id number] S [id number] [facility] [place] O [id number] S [id number] [facility] Commercial [id number] Family Dependent [id number] [facility] Health Maintenance Organization (HMO) Family Dependent [employer] Commercial [facility] F PLEASE GET SELF PLEASE GET [facility] [id number] [id number] [facility] O [id number] S [id number] Problems, Conditions, and Diagnoses Code Display Name Description Problem Type Effective Dates Data Source(s) F32.9 Major depressive disorder, single episod e, unspecified MAJOR DEPRESSIVE DISORDER, SINGLE EPISODE, UNSPECI Diagnosis 04/17/2020 02:00:00 PM [facility] F41.9 Anxiety disorder, unspecified ANXIETY DISORDER, UNSPEC IFIED Diagnosis 04/17/2020 02:00:00 PM [facility] new onset seizure new onset seizure Diagnosis 11/26/2019 11:33:00 AM [facility] F339 Major depressive disorder, recurrent, un specified Major depressive disorder, recurrent, unspecified Diagnosis 10/24/2019 12:24:00 PM [facility] F419 Anxiety disorder, unspecified Anxiety disorder, unspec ified Diagnosis 10/24/2019 12:24:00 PM [facility] M797 Fibromyalgia Fibromyalgia Diagnosis 10/24/2019 12:24:00 P M [facility] M329 Systemic lupus erythematosus, unspecifie d Systemic lupus erythematosus, unspecified Diagnosis 10/24/2019 12:24:00 PM EDT [facility] M545 Low back pain Low back pain Diagnosis 10/24/2019 12:24:00 PM EDT [facility] Z6841 Body mass index (BMI) 40.0-44.9, adult B danette mass index (BMI) 40.0-44.9, adult Diagnosis 10/24/2019 12:24:00 PM EDT [facility] E669 Obesity, unspecified Obesity, unspecified Diagnosis 10/24/2019 12:24:00 PM EDT [facility] I4891 Unspecified atrial fibrillation Unspecified atrial fib rillation Diagnosis 10/24/2019 12:24:00 PM EDT [facility] Z794 intermediate card tender (current) use of insulin intermediate card tender (cu rrent) use of insulin Diagnosis 10/24/2019 12:24:00 PM EDT [facility] E119 Type 2 diabetes mellitus without complic ations Type 2 diabetes mellitus without complications Diagnosis 10/24/2019 12:24:00 PM EDT [facility] R0902 Hypoxemia Hypoxemia Diagnosis 10/24/2019 12:24:00 PM ED T [facility] J189 Pneumonia, unspecified organism Pneumonia, unspecified organism Diagnosis 10/24/2019 12:24:00 PM EDT [facility] Surgeries/Procedures Procedure Description Date Indications Data Source(s) QUANTIFERON-TB GOLD PLUS QUANTIFERON-TB GOLD PLUS Routine 01/03/2020 4:13 PM EDT Systemic lupus erythematosus, unspecified SLE type, unspecified organ involvement status High risk medication use BETHANY positive 01/03/2020 04:13:00 PM EDT BETHANY positiveH igh risk medication useSystemic lupus erythematosus, unspecified SLE type, unspecified organ involvement status [facility] BETHANY positive High risk medication [...] unspecified SLE type, unspecified organ involvement status [facility] BETHANY positive High risk medication [...] unspecified SLE type, unspecified organ involvement status [facility] BETHANY positive High risk medication [...] unspecified SLE type, unspecified organ involvement status [facility] BETHANY positive High risk medication [...] unspecified SLE type, unspecified organ involvement status [facility] BETHANY positive High risk medication use Systemic lupus erythematosus, unspecifie d SLE type, unspecified organ involvement status STREP A ASSAY W/OPTIC 04/10/2019 12:00:00 AM EST eCW1 ([facility]) Results ID Date Data Source [id number] 01/05/2020 08:05:05 AM EDT [facility] Name Value Range Interpretation Code Description Data Glenda rce(s) Supporting Document(s) Progress Note [facility] [id number] [file] [id number] ID Date Data Source [id number] 01/03/2020 06:02:03 PM EDT [facility] NegativeNo interferon-gamma response to M.tuberculosisantigens was detected. Infection withM. tuberculosis is unlikely. A single negativeresult does not exclude infection with M. TB.In patients at high risk for M. tuberculosisinfection, a 2nd test should be consideredin accordance with [id number] ATS/IDSA/CDC Clinical Practice Guidelinesfor Diagnosis of Tuberculosis in Adults andChildren [Lewins[place]olan DM et. al. Clin Infec.Rkm9053 64(2):111-115] Name Value Range Interpretation Code Description Data Glenda rce(s) Supporting Document(s) Leukocytes [#/volume] in Blood by Automated count 9.4 10*3/uL 4-10 [facility] Erythrocytes [#/volume] in Blood by Automated count 4.62 10*6/uL 4.1- 5.3 [facility] Hemoglobin [Mass/volume] in Blood 14.8 g/dL 11.5-15.5 [facility] Hematocrit [Volume Fraction] of Blood by Automated count 44.8 % 3 6-45 [facility] Erythrocyte mean corpuscular volume [Entitic volume] by Auto mated count 97.0 fL 80-96 H [facility] Erythrocyte mean corpuscular hemoglobin [Entitic mass] by Automated count 31.9 pg 27-33 [facility] Erythrocyte mean corpuscular hemoglobin concentration [Mass/volume] by Automated count 32.9 g/dL [facility].0-[facility] width [Ratio] by Automated count 12.4 % 11.5-14.5 [facility] Platelets [#/volume] in Blood by Automated count 225 10*3/uL 150-400 [facility] Differential cell count method - Blood [facility] Neutrophils/100 leukocytes in Blood by Automated count 64 % [facility] Lymphocytes/100 leukocytes in Blood by Automated count 27 % [facility] Monocytes/100 leukocytes in Blood by Automated count 6 % [facility] Eosinophils/100 leukocytes in Blood by Automated count 2 % [facility] Basophils/100 leukocytes in Blood by Automated count 1 % [facility] Neutrophils [#/volume] in Blood by Automated count 6.16 10*3/uL 1.8-7 .0 [facility] Lymphocytes [#/volume] in Blood by Automated count 2.50 10*3/uL 1.2-4 .0 [facility] Monocytes [#/volume] in Blood by Automated count 0.55 10*3/uL 0-0.8 [facility] Eosinophils [#/volume] in Blood by Automated count 0.14 10*3/uL 0-0.5 [facility] Basophils [#/volume] in Blood by Automated count 0.09 10*3/uL 0-0.2 [facility] Nucleated erythrocytes/100 leukocytes [Ratio] in Blood by Automated count 0 /100{WBCs} 0-0 [facility] ID Date Data Source [id number] 01/03/2020 06:12:44 PM EDT [facility] NegativeNo interferon-gamma response to M.tuberculosisantigens was detected. Infection withM. tuberculosis is unlikely. A single negativeresult does not exclude infection with M. TB.In patients at high risk for M. tuberculosisinfection, a 2nd test should be consideredin accordance with [id number] ATS/IDSA/CDC Clinical Practice Guidelinesfor Diagnosis of Tuberculosis in Adults andChildren [Cecil DM et. al. Clin Infec.Why2653 64(2):111-115] Name Value Range Interpretation Code Description Data Glenda rce(s) Supporting Document(s) Erythrocyte sedimentation rate 30 mm/hr <30 H [facility] ID Date Data Source [id number] [facility]-gamma response to M.tuberculosisantigens was detected. Infection withM. tuberculosis is unlikely. A single negativeresult does not exclude infection with M. TB.In patients at high risk for M. tuberculosisinfection, a 2nd test should be consideredin accordance with [id number] ATS/IDSA/CDC Clinical Practice Guidelinesfor Diagnosis of Tuberculosis in Adults andChildren [Leninsohgeeta DM et. al. Clin Infec.Xxd9484 64(2):111-115] Name Value Range Interpretation Code Description Data Glenda rce(s) Supporting Document(s) Albumin [Mass/volume] in Serum or Plasma by Bromocresol green (BCG) dye binding method 3.9 g/dL 3.5-5.2 [facility] Bilirubin.total [Mass/volume] in Serum or Plasma 1.1 mg/dL <1.2 [facility] Calcium [Mass/volume] in Serum or Plasma 8.9 mg/dL 8.6-10.0 [facility] Chloride [Moles/volume] in Serum or Plasma 104 mmol/L 98-107 [facility] Creatinine [Mass/volume] in Serum or Plasma 0.85 mg/dL 0.50-0.90 [facility] Glucose [Mass/volume] in Serum or Plasma 170 mg/dL 70-140 H [facility] Alkaline phosphatase [Enzymatic activity/volume] in Serum or Plasma 225 U/L 35-104 H [facility] Potassium [Moles/volume] in Serum or Plasma 4.0 mmol/L 3.4-5.1 [facility] Protein [Mass/volume] in Serum or Plasma 6.7 g/dL 6.4-8.3 [facility] Sodium [Moles/volume] in Serum or Plasma 141 mmol/L 136-145 [facility] Aspartate aminotransferase [Enzymatic activity/volume] in Serum or Plasma 95 U/L <32 H [facility] Urea nitrogen [Mass/volume] in Serum or Plasma 13 mg/dL 6-20 [facility] Osmolality of Serum or Plasma by calculation 296 mosm/kg 275-300 [facility] Creatinine/Urea nitrogen [Mass Ratio] in Serum or Plasma 15 [facility] Bicarbonate [Moles/volume] in Serum 25 mmol/L 22-29 [facility] Alanine aminotransferase [Enzymatic activity/volume] in Seru m or Plasma 679 U/L <33 H [facility] Anion gap 3 in Serum or Plasma 12 mmol/L 8-15 [facility] Glomerular filtration rate/1.73 sq M pre dicted among non-blacks [Volume Rate/Area] in Serum or Plasma by Creatinine-based formula (MDRD) 78 mL/min/1.73m2 >60 [facility] Glomerular filtration rate/1.73 sq M pre dicted among blacks [Volume Rate/Area] in Serum or Plasma by Creatinine-based formula (MDRD) >60 [facility] ID Date Data Source [id number] 01/05/2020 03:05:50 PM EDT [facility] NegativeNo interferon-gamma response to M.tuberculosisantigens was detected. Infection withM. tuberculosis is unlikely. A single negativeresult does not exclude infection with M. TB.In patients at high risk for M. tuberculosisinfection, a 2nd test should be consideredin accordance with [id number] ATS/IDSA/CDC Clinical Practice Guidelinesfor Diagnosis of Tuberculosis in Adults andChildren [Leninssean DM et. al. Clin Infec.Vxp5667 64(2):111-115] Name Value Range Interpretation Code Description Data Glenda rce(s) Supporting Document(s) Mycobacterium tuberculosis stimulated gamma interferon [Units/volume] in Blood 0.01 [IU]/mL [facility] 0.01 Mitogen stimulated gamma interferon [Units/volume] in Blood [facility] Gamma interferon background [Units/volume] in Blood by Immun oassay 0.03 [IU]/mL [facility] ID Date Data Source [id number] 01/04/2020 02:02:17 PM EDT [facility] Name Value Range Interpretation Code Description Data Glenda rce(s) Supporting Document(s) Nuclear Ab Pattern Homogenous [Titer] in Serum <80 [facility] Nuclear Ab pattern.speckled [Titer] in Serum <80 [facility] Nuclear Ab pattern.rim [Titer] in Serum <80 [facility] Nuclear Ab pattern.nucleolar [Titer] in Serum <80 [facility] ID Date Data Source [id number] 01/16/2020 08:19:00 AM EDT [facility] Name Value Range Interpretation Code Description Data Glenda rce(s) Supporting Document(s) COLLECTION DEVELOPMENT LIBRARIAN Antibodies 0.0-0.9 [facility] Weems Antibodies 0.0-0.9 [facility] ID Date Data Source [id number] 01/16/2020 08:19:00 AM EDT [facility] Name Value Range Interpretation Code Description Data Glenda rce(s) Supporting Document(s) Anti-DNA (DS) Ab Qn 0-9 [facility] Negative <5 Equivocal 5 - 9 Positive >9 ID Date Data Source [id number] 01/30/2020 09:05:00 AM EDT [facility] Name Value Range Interpretation Code Description Data Glenda rce(s) Supporting Document(s) Specimen Source Urine [facility] Streptococcus pneumoniae Ag Negative Negative [facility] Body Fluid Culture, Sterile Not indicated. [facility] Organism ID Not indicated. [facility] Please Note: [facility] [employer] standar ds require a culture to beperformed on CSF specimens submitted for bacterial antigen testing.(CAP LELIA.[id number]) Urine specimens will not be cultured. ID Date Data Source [id number] 01/30/2020 09:05:00 AM EDT [facility] Name Value Range Interpretation Code Description Data Glenda rce(s) Supporting Document(s) L. pneumophila Serogp 1 Ur Ag Negative Negative [facility] Presumptive negative for L. pneumophila serogroup 1 antigen in urine,suggesting no recent or current infection. Legionnaires' diseasecannot be ruled out since other serogroups and species may also causedisease. ID Date Data Source [id number] 10/24/2019 12:24:00 PM EDT [facility] 1 OrderSheet [facility] Emergency Department [address] [place] [address] Phone #: [phone]- [phone] 10/24/2019 12:16 Patient: [...] 12:33 10/24/2019 12:33 Dena Dunbar 2 OrderSheet [facility] Emergency Department [address] [place] [address] Phone #: [phone]- [phone] 10/24/2019 12:16 Patient: CLINTON HAN Sex: F [...] 10/24/2019 12:51 Berry HurleyMonitor Davidrin, James R.N. M.D.;Personnel Counselor 12:33 10/24/2019 12:51 Berry Hurley(continuous) Turrin, James R.N. M.D.;EKG 12:33 10/24/2019 12:51 Berry Hurley 3 OrderSheet [facility] Emergency Department [address] [place] [address] Phone #: [phone]- [phone] 10/24/2019 12:16 Patient: [...] rce(s) Supporting Document(s) ID Date Data Source [id number] 10/24/2019 12:24:00 PM EDT [facility] 1 Medication Reconciliation Report [facility] Emergency Department [address] [place] [address] Phone #: ext- [phone] 10/24/2019 12:16 [facility]: [id number] Sex: F : 1970 Age: 49yWeight: 111.5 [...] Empagliflozin Oral (25 mg), daily Ergocalciferol Oral (43704 unit), daily Exenatide Subcutaneous 2mcg, once a week Ferrous Sulfate Iron Oral (200 (65 Fe) mg) 1 tablet, 2x a day Lantus Subcutaneous 16 units, daily, at bedtime 2 Medication Reconciliation Report [facility] Emergency Department [address] [place] [address] Phone #: ext- [phone] 10/24/2019 12:16 Patient: [...] Medication information:Not obtained. 3 Medication Reconciliation Report [facility] Emergency Department [address] [place] [address] Phone #: ext- [phone] 10/24/2019 12:16 Patient: [...] rce(s) Supporting Document(s) ID Date Data Source [id number] 10/24/2019 12:24:00 PM EDT [facility] 1 Medication Administration Record [facility] Emergency Department [address] [place] [address] Phone #: ext- [phone] 10/24/2019 12:16 Patient: [...] POStart ROCEPHIN (1GM/50ML) [IVPB] Rocephin (1gm/50mL) IVPB 610185:53 10/24/2019 (CEFTRIAXONE SODIUM) mg with Dextrose 50 [...] rce(s) Supporting Document(s) ID Date Data Source [id number] 10/24/2019 12:24:00 PM EDT [facility] 1 General Instructions [facility] Emergency Department [address] [place] [address] Phone #: ext- [phone] 10/24/2019 12:16 Patient: CLINTON HAN Sex: F : 1970 Age: 49yBronchopneumonia with hypoxemia.Hypoxia.(Electronically signed by James Baez M.D. 10/24/2019 16:36) Name Value Range Interpretation Code Description Data Glenda rce(s) Supporting Document(s) ID Date Data Source [id number] 10/24/2019 12:24:00 PM EDT [facility] 1 Clinical Report - Nurses [facility] Emergency Department [address] [place] [address] Phone #: ext- [phone] 10/24/2019 12:16 Patient: [...] week, did not get much sleep). 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 SEPSIS SCREEN: SIRS Screen negative. Sepsis Screen negative. No suspected or confirmed signs of infection present. --12:22 10/24/19 Berry Hurley R.N. 12:17 10/24/19. BP: 112/62. MAP: 78. [...] Hurley R.N. 2 Clinical Report - Nurses [facility] Emergency Department [address] [place] [address] Phone #: ext- [phone] 10/24/2019 12:16 Patient: CLINTON HAN Sex: F : 1970 Age: 49yprednisoLONE Acetate Ophthalmic (Suspension 1 %), 2x a day. --12:40 10/24/19 Berry Hurley R.N.Lifitegrast 5 , 2x a day. --12:40 10/24/19 Berry Hurley R.N.Pregabalin Oral (Capsule 200 mg), q8h. --12:41 10/24/19 Berry Hurley R.N.DULoxetine HCl Oral (Capsule Delayed Release Particles 60 mg) 1 capsule, daily. --12:41 10/24/19 Berry Hurlye R.N.DULoxetine HCl Oral (Capsule Delayed Release Particles [...] 10/24/19 Berry Hurley R. N.Ergocalciferol Oral (Capsule 04144 unit), daily. --12:48 10/24/19 Berry Hurley R.N.AllergiesKiwi.LamoTRIgine.(rash) --12:29 10/24/19 Berry Hurley R.N.Opiod. --12:48 10/24/19 Berry Hurley R.N.Ondansetron. --12:48 10/24/19 Berry Hurley R.N.PROBLEMS:Compressed disc.Diabetes Mellitus.Degenerative Joint Disease.Acute Pain.Cellulitis.Back Pain.Spinal Injury.Neck Pain.PCOS.Gall bladder.Insulin resistance. 3 Clinical Report - Nurses [facility] Emergency Department [address] [place] [address] Phone #: ext- [phone] 10/24/2019 12:16 Patient: [...] factors identified. 4 Clinical Report - Nurses [facility] Emergency Department [address] [place] [address] Phone #: ext- [phone] 10/24/2019 12:16 Patient: [id number] Sex: F : 1970 Age: 49y SKIN [...] --12:26 10/24/19 Berry Hurley R.N.NURSING PROGRESS NOTES cardiac monitor technician and NIBP monitor placed on patient; monitor [...] Hurley R.N. 5 Clinical Report - Nurses [facility] Emergency Department [address] [place] [address] Phone #: ext- [phone] 10/24/2019 12:16 Patient: CLINTON HAN Sex: F : 1970 Age: 49yPatient transported to [place] by [place] with transporter. 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 Gay the pt could [...] IV flushed 6 Clinical Report - Nurses [facility] Emergency Department [address] [place] [address] Phone #: ext- [phone] 10/24/2019 12:16 Patient: [...] Transported via 7 Clinical Report - Nurses [facility] Emergency Department [address] [place] [address] Phone #: [phone]- [phone] 10/24/2019 12:16 Patient: CLINTON HAN Sex: F [...] rce(s) Supporting Document(s) ID Date Data Source [id number] 10/24/2019 12:24:00 PM EDT [facility] 1 Clinical Report - Physicians/Mid Levels [facility] Emergency Department [address] [place] [address] Phone #: ext- [phone] 10/24/2019 12:16 Patient: [...] disease. 2 Clinical Report - Physicians/Mid Levels [facility] Emergency Department [address] [place] [address] Phone #: ext- [phone] 10/24/2019 12:16 Patient: CLINTON HAN Sex: F : 1970 Age: 49yArthritis.DDD.Chronic pain.Chronic Fatigue Syndrome [RuleOut].Additional Surgeries:Cholecystectomy.Gastric bypass.Hysterectomy.Partial hysterectomy.Right shoulder.Right Shoulder.James-en-Y gastrojejunostomy.Sinus Surgery.Medications:Ergocalciferol Oral (Capsule 80553 unit), daily.Cyanocobalamin Oral (Tablet 1000 mcg), daily.Empagliflozin [...] bedtime. 3 Clinical Report - Physicians/Mid Levels [facility] Emergency Department [address] [place] [address] Phone #: [phone] 10/24/2019 12:16 Patient: CLINTON HAN [facility] [id number] Sex: F : 1970 Age: 49y Naloxone. [...] Technique: 4 Clinical Report - Physicians/Mid Levels [facility] Emergency Department [address] [place] [address] Phone #: ext- [phone] 10/24/2019 12:16 Patient: CLINTON HAN [facility] [id number] Sex: F : 1970 Age: 49ypoor inspiration. The X-rays were interpreted by the radiologist. Interpretation time: 13:21 10/24/2019.Laboratory Tests: Laboratory tests have been ordered, with results reviewed and considered in themedical decision making process.Urinalysis: (WHITNEY: 10/24/2019 13:10) ( [employer] 10/24/2019 14:13) Final results Test Result Flag [...] CON INC PP: (WHITNEY: 10/24/2019 13:16) ( [employer] 10/24/2019 13:47) InProgressCT CTA CHEST NON-CORONARY W CON INC PPReason(s): rt sided CP, SOB, high d-dimerTRANSPORTATION: WC IV? IV?(Yes) O2? Oxygen?(No) RoCBC w Diff: (WHITNEY: 10/24/2019 12:40) ( [employer] 10/24/2019 12:59) Final results Test Result Flag [...] 3.40) 5 Clinical Report - Physicians/Mid Levels [facility] Emergency Department [address] [place] [address] Phone #: ext- [phone] 10/24/2019 12:16 Patient: [...] Male GFR Interprentation 20-49 yrs >60 mL/min Oxmito65-04 yrs >56 mL/min Normal 60-69 yrs >49 mL/min Normal 70-79yrs>42 mL/min Normal 80 and above >35 mL/min Normal Female GFRInterpretation 20-39 yrs >60 mL/min Normal 40-49 yrs >58 mL/minNormal 50-59 yrs >51 mL/min Normal 60-69 yrs >45 mL/min Qxxikj81-40 yrs >39 mL/min Normal 80 and above >32 mL/min NormalLipase: (WHITNEY: 10/24/2019 12:40) ( MsgRcvd 10/24/2019 13:25) Final results Test Result Flag Units (Reference) LIPASE 24 U/L (13 - 60)PT/PTT: (WHITNEY: 10/24/2019 12:40) ( [facility] 10/24/2019 13:03) Final results Test Result Flag Units (Reference) PROTIME 11.8 SECONDS (11.0 - 15.5) INR 0.86 L (0.93 - 1.23) PTT 21.7 L SECONDS (24.8 - 36.7) \\BLDo\\INR INTERPRETATION\\BLDx\\ Therapeutic range for Coumadin andrelated oral anticoagulants. -International Normalized Ratio (INR): 2.0 - 3.0 for VenousThrombosis, Pulmonary Embolus, Tissue heart valves, Acute [place] Atrial Fibrillation, Valvular heart diseaseand recurrent Systemic Embolism. -International Normalized Ratio (INR): 2.5 - 3.5 forMechanical Prosthetic valve.Troponin-T: (WHITNEY: 10/24/2019 12:40) ( [facility] 10/24/2019 13:26) Final results 6 Clinical Report - Physicians/Mid Levels [facility] Emergency Department [address] [place] [address] Phone #: ext- [phone] 10/24/2019 12:16 Patient: CLINTON HAN Sex: F : 1970 Age: 49y Test Result Flag Units (Reference) TROPONIN T <0.01 NG/ML (0.00 - 0.10) TROPONIN T0.1 ng/ml Recommended as the clinical threshold value forTroponin T. BNP: (WHITNEY: 10/24/2019 12:40) ( [facility] 10/24/2019 13:25) Final results Test Result Flag [...] Decadron IV; case discussed w Janice Novak, CRYPTOLOGIC TECHNICIAN hospitalist, will admit 14:31 10/24/19. pt feeling [...] hypoxemia. 7 Clinical Report - Physicians/Mid Levels [facility] Emergency Department [address] [place] [address] Phone #: ext- [phone] 10/24/2019 12:16 Patient: CLINTON HAN Sex: F : 1970 Age: 49y Hypoxia.(Electronically signed by James Baez M.D. 10/24/2019 16:36) Name Value Range Interpretation Code Description Data Glenda rce(s) Supporting Document(s) ID Date Data Source [id number] 10/24/2019 12:24:00 PM EDT [facility] Addenda for CLINTON HAN VisitID: [id number] Date: 16:34Med Rec request faxed to [employer] with t-system overview @ 1459T-sysyte overview faxed to [facility] @ 1508Metformin discharge insturctions faxed to [employer] @ [phone](Electronically signed by Samuel Warner - 10/24/2019 16:34)11/04/2019 14:22pt was tested for covid-19 in U not ED. Pt called to day for test results she stated that she was supposeto be called with results, mechanical unit repairer looked up results and Mello RN told [...] rce(s) Supporting Document(s) ID Date Data Source [id number] 10/26/2019 07:13:00 AM EDT [facility] Name Value Range Interpretation Code Description Data Glenda rce(s) Supporting Document(s) BASIC METABOLIC PANEL [facility] BASIC METABOLIC PANEL Sodium [Moles/volume] in Serum or Plasma 141 mEq/L 134 - 153 [facility] Potassium [Moles/volume] in Serum or Plasma 4.5 mEq/L 3.6 - 5.0 [facility] Chloride [Moles/volume] in Serum or Plasma 107 mEq/L 98 - 107 [facility] Carbon dioxide, total [Moles/volume] in Serum or Plasma 26 MEQ/L 22 - 30 [facility] Glucose [Mass/volume] in Serum or Plasma 231 MG/DL 65 - 110 H [facility] BUN 20 MG/DL 7 - 21 [facility] al Creatinine [Mass/volume] in Serum or Plasma 0.6 MG/DL 0.7 - 1.5 L [facility] BUN/CREAT 33 8 - 27 H [facility] Calcium [Mass/volume] in Serum or Plasma 9.0 MG/DL 8.4 - 10.2 [facility] Anion gap 3 in Serum or Plasma 8.0 mmol/L 8.0 - 16.0 [facility] AGE 49 yrs [facility] al AFR AMER GFR >60 mL/min [facility] NON-AA GFR >60 mL/min [facility] ital Male GFR Inter prentation 20-49 yrs [...] >32 mL/min Normal ID Date Data Source [id number] 10/26/2019 06:54:00 AM EDT [facility] Name Value Range Interpretation Code Description Data Glenda rce(s) Supporting Document(s) CBC W/AUTOMATED DIFF [facility] COMPLETE BLOOD COUNT Leukocytes [#/volume] in Blood by Automated count 13.0 10^3/uL 4.2 - 11.0 H [facility] Erythrocytes [#/volume] in Blood by Automated count 4.09 10^6/uL 4. 20 - 5.40 L [facility] Hemoglobin [Mass/volume] in Blood 13.2 g/dL 12.0 - 16.0 [facility] Hematocrit [Volume Fraction] of Blood by Automated count 40.0 % 3 7.0 - 47.0 [facility] Erythrocyte mean corpuscular volume [Entitic volume] by Auto mated count 97.8 fL 81.0 - 101 [facility] Erythrocyte mean corpuscular hemoglobin [Entitic mass] by Automated count 32.3 pg 27.0 - 34.0 [facility] Erythrocyte mean corpuscular hemoglobin concentration [Mass/volume] by Automated count 33.0 g/dL 31.0 - 36.0 [facility] Erythrocyte distribution width [Ratio] by Automated count 12.0 % 11.5 - 14.5 [facility] Platelets [#/volume] in Blood by Automated count 241 10^3/uL 150 - 45 0 [facility] Platelet mean volume [Entitic volume] in Blood by Automated count 10.4 fL 7.4 - 10.4 [facility] Neutrophils/100 leukocytes in Blood by Automated count 83.9 % 37. 0 - 80.0 H [facility] Lymphocytes/100 leukocytes in Blood by Manual count 10.0 % 25.0 - 40.0 L [facility] Monocytes/100 leukocytes in Blood by Automated count 4.4 % 3.0 - 8.0 [facility] Eosinophils/100 leukocytes in Blood by Automated count 0.0 % 0.0 - 7.0 [facility] Basophils/100 leukocytes in Blood by Automated count 0.2 % 0.0 - 2.5 [facility] %IG 1.5 % 0.0 - 0.[address] [facility] %NRBC 0.0 % 0.0 - 0.0 [facility] al Neutrophils [#/volume] in Blood by Automated count 10.93 10^3/uL 2. 00 - 6.90 H [facility] Lymphocytes [#/volume] in Blood by Automated count 1.30 10^3/uL 0.60 - 3.40 [facility] Monocytes [#/volume] in Blood by Automated count 0.57 10^3/uL 0.00 - 0.90 [facility] Eosinophils [#/volume] in Blood by Automated count 0.00 10^3/uL 0.00 - 0.70 [facility] Basophils [#/volume] in Blood by Automated count 0.03 10^3/uL 0.00 - 0.20 [facility] #IG 0.20 10^3/uL 0.00 - 0.[address] [facility] #NRBC 0.00 10^3/uL 0.00 - 0.00 [facility] MANUAL DIFF NOT INDICATED [facility] RBC MORPH NOT INDICATED [facility] spital ID Date Data Source [id number] 10/25/2019 08:43:00 [place] [address] RESPIRATORY CARE REPORT ==== ---------NAME------- NUMBER SEX AGE ADMIT DISC. XRAY# F/C MAGDALENE Crawford [id number] F 49 10/24/19 [id number] SB4 O/P DATE OF : 1970 M/R# [id number] #: [phone] 117-1 LOCATION: EMERGENCY DEPT EKG 01629 COMP LETE:10/24/19 14:22 EWW [id number] PHYSICIAN: ROXANNE MORRIS Name Value Range Interpretation Code Description Data Glenda rce(s) Supporting Document(s) ID Date Data Source [id number] 10/25/2019 12:10:00 [place] [address] PHONE: [phone] FAX: [phone] Name .................. : GUILLE Crawford Acct Number.................. : [id number] ROOM. ................. : 117-1 MR Number ................... : [id number] Stay type ............. : O/P Discharge Date......... ... : Admit Date ......... : 10/24/19 Admit Phys .................... : ASHLEIGH-FALAN Date of ....... : 1970 Family Phys ................... : UNKNOWN Phone .................. : [phone] Age ................................ : 49 Film# .................. .:[id number] Sex ................................. : F Unsigned transcriptions are preliminary reports and do not represent a medical or legal document DOPPLER VENOUS BILAT LEG 02179 COMPLETE:10/24/19 15:04 [id number] (REASON FOR PROCESS: ABNORMAL D-DIMER BILATERAL LOWER [...] By Octavio Chavez M.D. , 10/25/19 12:10, [facility] Transcribe Initials: NIRAV , Transcribe Date: 10/24/19 23:22, Dictation Date: Copy for: ZE KRAUSEREGAN Tejada via fax Copy for: EMERGENCY DEPT via modem Copy for: [facility] REC Page 1 of 1 Name Value Range Interpretation Code Description Data Glenda rce(s) Supporting Document(s) ID Date Data Source [id number] 10/25/2019 11:59:00 AM EDT [facility] [address] [place] [address] PHONE: [phone] FAX: [phone] Name .................. : GUILLE Crawford Acct Number.................. : [id number] ROOM. ................. : 117-1 MR Number ................... : [id number] Stay type ............. : O/P Discharge Date......... ... : Admit Date ......... : 10/24/19 Admit Phys .................... : ROXANNE Date of ....... : 1970 Family Phys ................... : UNKNOWN Phone .................. : [phone] Age ................................ : 49 Film# .................. .:[id number] Sex ................................. : F Unsigned transcriptions are preliminary reports and do not represent a medical or legal document CT CTA CHEST NON-CORONARY Suzette Haskins 45763 COMPLETE:10/24/19 13:46 [facility] [address] Reason(s): rt sided CP, SOB, high d-dimer [...] of administration: Intravenous Page 1 of 2 [place] [address] PHONE: [phone] FAX: [phone] Name .................. : GUILLE Crafword Acct Numb er.................. : [id number] ROOM. ................. : 117-1 MR Number ................... : [id number] Stay type ............. : O/P Discharge Date......... ... : Admit Date ......... : 10/24/19 Admit Phys .................... : ROXANNE Date of ....... : 1970 Family Phys ................... : UNKNOWN Phone .................. : [phone] Age ................................ : 49 Film# .................. .:[id number] Sex ................................. : F Unsigned transcriptions are preliminary reports and do not represent a medical or legal document CT CTA CHEST NON-CORONARY W C 99335 COMPLETE:10/24/19 13:46 [facility] [address] Reason(s): rt sided CP, SOB, high d-dimer Electronically Reviewed and Signed By Octavio Chavez M.D. , 10/25/19 11:59, [facility] Transcribe Initials: DZ , Transcribe Date: 10/24/19 15:49, Dictation Date: Copy for: EMERGENCY DEPT via modem Copy for: 710 MED REC Page 2 of 2 Name Value Range Interpretation Code Description Data Glenda rce(s) Supporting Document(s) ID Date Data Source [id number] 10/25/2019 11:35:00 [place] [address] PHONE: [phone] FAX: [phone] Name .................. : GUILLE Crawford Acct Number.................. : [id number] ROOM. ................. : 117-1 MR Number ................... : [id number] Stay type ............. : O/P Discharge Date......... ... : Admit Date ......... : 10/24/19 Admit Phys .................... : ASHLEIGH-FALAN Date of ....... : 1970 Family Phys ................... : UNKNOWN Phone .......... ........ : [phone] Age ................................ : 49 Film# .................. .:[id number] Sex ................................. : F Unsigned transcriptions are preliminary reports and do not represent a medical or legal document CHEST 2 VIEWS 25186 COMPLETE:10/24/19 12:51 ARS 99899 Reason(s): Shortness of Breath CHEST X-RAY: PA [...] EMERGENCY DEPT via mode Copy for: [facility] REC Page 1 of 1 Name Value Range Interpretation Code Description Data Glenda rce(s) Supporting Document(s) ID Date Data Source [id number] 10/25/2019 07:36:00 AM EDT [facility] Name Value Range Interpretation Code Description Data Glenda rce(s) Supporting Document(s) Magnesium [Mass/volume] in Serum or Plasma 2.3 MG/DL 1.7 - 2.2 H [facility] ID Date Data Source [id number] 10/25/2019 07:36:00 AM EDT [facility] Name Value Range Interpretation Code Description Data Glenda rce(s) Supporting Document(s) COMPREHENSIVE METABOLIC PANEL [facility] COMPREHENSIVE METABOLIC PANEL Sodium [Moles/volume] in Serum or Plasma 141 mEq/L 134 - 153 [facility] Potassium [Moles/volume] in Serum or Plasma 4.3 mEq/L 3.6 - 5.0 [facility] Chloride [Moles/volume] in Serum or Plasma 106 mEq/L 98 - 107 [facility] Carbon dioxide, total [Moles/volume] in Serum or Plasma 27 MEQ/L 22 - 30 [facility] Glucose [Mass/volume] in Serum or Plasma 179 MG/DL 65 - 110 H [facility] BUN 15 MG/DL 7 - 21 [facility] Creatinine [Mass/volume] in Serum or Plasma 0.6 MG/DL 0.7 - 1.5 L [facility] BUN/CREAT 25 8 - 27 [facility] Protein [Mass/volume] in Serum or Plasma 5.7 G/DL 6.3 - 8.2 L [facility] Albumin [Mass/volume] in Serum or Plasma 3.8 G/DL 3.9 - 5.0 L [facility] Globulin [Mass/volume] in Serum by calculation 1.9 GM/DL 2.4 - 3.2 L [facility] A/G RATIO 2.0 0.8 - 2.0 [facility] Calcium [Mass/volume] in Serum or Plasma 8.8 MG/DL 8.4 - 10.2 [facility] Bilirubin.total [Mass/volume] in Serum or Plasma 0.8 MG/DL 0.2 - 1.3 [facility] Alkaline phosphatase [Enzymatic activity/volume] in Serum or Plasma 95 U/L 38 - 126 [facility] Aspartate aminotransferase [Enzymatic activity/volume] in Serum or Plasma 12 U/L 5 - 40 [facility] Alanine aminotransferase [Enzymatic activity/volume] in Seru m or Plasma 46 U/L 7 - 56 [facility] Anion gap 3 in Serum or Plasma 8.0 mmol/L 8.0 - 16.0 [facility] AGE 49 yrs [facility] al NON-AA GFR >60 mL/min [facility] ital AFR AMER GFR >60 mL/min [facility] Male GFR In terprentation 20-49 [...] >32 mL/min Normal ID Date Data Source [id number] 10/25/2019 07:13:00 AM EDT [facility] Name Value Range Interpretation Code Description Data Glenda rce(s) Supporting Document(s) CBC W/AUTOMATED DIFF [facility] COMPLETE BLOOD COUNT Leukocytes [#/volume] in Blood by Automated count 15.0 10^3/uL 4.2 - 11.0 H [facility] Erythrocytes [#/volume] in Blood by Automated count 4.11 10^6/uL 4. 20 - 5.40 L [facility] Hemoglobin [Mass/volume] in Blood 13.2 g/dL 12.0 - 16.0 [facility] Hematocrit [Volume Fraction] of Blood by Automated count 39.9 % 3 7.0 - 47.0 [facility] Erythrocyte mean corpuscular volume [Entitic volume] by Auto mated count 97.1 fL 81.0 - 101 [facility] Erythrocyte mean corpuscular hemoglobin [Entitic mass] by Automated count 32.1 pg 27.0 - 34.0 [facility] Erythrocyte mean corpuscular hemoglobin concentration [Mass/volume] by Automated count 33.1 g/dL 31.0 - 36.0 [facility] Erythrocyte distribution width [Ratio] by Automated count 12.0 % 11.5 - 14.5 [facility] Platelets [#/volume] in Blood by Automated count 241 10^3/uL 150 - 45 0 [facility] Platelet mean volume [Entitic volume] in Blood by Automated count 9.9 fL 7.4 - 10.4 [facility] Neutrophils/100 leukocytes in Blood by Automated count 84.3 % 37. 0 - 80.0 H [facility] Lymphocytes/100 leukocytes in Blood by Manual count 9.5 % 25.0 - 40.0 L [facility] Monocytes/100 leukocytes in Blood by Automated count 5.5 % 3.0 - 8.0 [facility] Eosinophils/100 leukocytes in Blood by Automated count 0.0 % 0.0 - 7.0 [facility] Basophils/100 leukocytes in Blood by Automated count 0.2 % 0.0 - 2.5 [facility] %IG 0.5 % 0.0 - 0.[address] [facility] %NRBC 0.0 % 0.0 - 0.0 [facility] Neut[facility]ils [#/volume] in Blood by Automated count 12.62 10^3/uL 2. 00 - 6.90 H [facility] Lymphocytes [#/volume] in Blood by Automated count 1.43 10^3/uL 0.60 - 3.40 [facility] Monocytes [#/volume] in Blood by Automated count 0.83 10^3/uL 0.00 - 0.90 [facility] Eosinophils [#/volume] in Blood by Automated count 0.00 10^3/uL 0.00 - 0.70 [facility] Basophils [#/volume] in Blood by Automated count 0.03 10^3/uL 0.00 - 0.20 [facility] #IG 0.08 10^3/uL 0.00 - 0.10 [facility] #NRBC 0.00 10^3/uL 0.00 - 0.00 [facility]spital MANUAL DIFF NOT INDICATED [facility] RBC MORPH NOT INDICATED [facility] ID Date Data Source [id number] 10/25/2019 01:27:00 AM EDT [facility] Name Value Range Interpretation Code Description Data Glenda rce(s) Supporting Document(s) TROPONIN T <0.01 NG/ML 0.00 - 0.10 [facility] TROPONIN T0.1 ng/ml Recommended as the c linical threshold value forTroponin T. ID Date Data Source [id number] 10/24/2019 06:53:00 PM EDT [facility] Name Value Range Interpretation Code Description Data Glenda rce(s) Supporting Document(s) TROPONIN T <0.01 NG/ML 0.00 - 0.10 [facility] TROPONIN T0.1 ng/ml Recommended as the c linical threshold value forTroponin T. ID Date Data Source [id number] 11/04/2019 06:51:00 AM EDT [facility] Name Value Range Interpretation Code Description Data Glenda rce(s) Supporting Document(s) SARS-CoV-2, NAOMI Not Detected Not Detected [facility] Testing was performed using the kody(R) SARS-CoV-2 test.This test was developed and its performance characteristics determinedby [employer]. This test has not been FDA cleared [...] in this assay. ID Date Data Source [id number] 10/24/2019 02:26:00 PM EDT [facility] Name Value Range Interpretation Code Description Data Glenda rce(s) Supporting Document(s) SARS coronavirus 2 RNA [facility] This lab was ordered by [facility] amisha and reported by [facility]. ID Date Data Source [id number] 10/28/2019 03:12:00 PM EDT [facility] Name Value Range Interpretation Code Description Data Glenda rce(s) Supporting Document(s) CULTURE URINE [facility] _CULTURE URINE_$$[id number]$$[id number]$$[id number]$$[id number]$$[id number]$$[id number]$$[id number]$$[id number]$$[id number]$$ [id number]$$547531$$[id number]$$964085$$668190$$277049$$375084$$072685$$122887$$937847$$ 318097$$850901$$827494$$675400$$147284$$[id number]$$[id number]$$[id number] -- Continued on next page --Patient: GUILLE Crawford Order: [id number] Page 2Culture: CULTURE URINE Status: Final ==== -- Continued on next page --Patient: GUILLE ALONZO J Order: [id number] Page 2Culture: CULTURE URINE Status: Prelim =====$$[id number]$$[id number] DATE/TIME: 10/28/2019 12:07Culture: CULTURE URINE Status: FinalUrine Culture,Comprehensive: [id number] urogenital flora10,000-25,000 colony forming units per mL Previous result entered on 10/27/2019 03:54 ET Specimen has been received and testing has been initiated.P1 Test performed by: [facility] Yulia GONZALEZ #: [id number] [address] [place] [address] [phone] [facility] [id number] Director : Julito Valero MD NPI #:Transportation Associate : 10/27/[id number].SENT REF 10/28/[id number].XMT.SENT REF ID Date Data Source [id number] 10/24/2019 02:12:00 PM EDT [facility] Name Value Range Interpretation Code Description Data Glenda rce(s) Supporting Document(s) [facility]IS [facility] URINALYSIS SOURCE R [facility] COLOR yellow NORMAL: Yellow [facility]ital CLARITY clear NORMAL: Clear [facility] Specific gravity of Urine by Test strip 1.015 1.001 - 1.030 [facility] pH 5 5 - 9 [facility] al Glucose [Mass/volume] in Urine by Test strip 1000 NORMAL: Negat [facility] Bilirubin.total [Presence] in Urine by Test strip NEG NORMAL: Negative [facility] Ketones [Presence] in Urine by Test strip NEG NORMAL: Negative [facility] Protein [Mass/volume] in Urine by Test strip NEG NORMAL: Negat [facility] Nitrite [Presence] in Urine by Test strip NEG NORMAL: Negative [facility] BLOOD NEG NORMAL: Negative [facility] Leukocyte esterase [Presence] in Urine by Test strip 100 NICOLA L: Negative [facility] Urobilinogen [Mass/volume] in Urine by Test strip NOR less yang n 1.0 mg/dL [facility] MICROSCOPIC See Below [facility] WBC 7 - 10 NORMAL: NONE SEEN [facility] Erythrocytes [#/volume] in Urine by Test strip 1 - 3 NORMAL: NON E SEEN [facility] EPITHELIAL MODERATE NORMAL: NONE SEEN [facility] Bacteria [Presence] in Urine sediment by Light microscopy 1+ SMALL NORMAL: NONE SEEN [facility] ID Date Data Source [id number] 10/24/2019 01:26:00 PM EDT [facility] Name Value Range Interpretation Code Description Data Glenda rce(s) Supporting Document(s) TROPONIN T <0.01 NG/ML 0.00 - 0.10 [facility] TROPONIN T0.1 ng/ml Recommended as the c linical threshold value forTroponin T. ID Date Data Source [id number] 10/24/2019 01:25:00 PM EDT [facility] Name Value Range Interpretation Code Description Data Glenda rce(s) Supporting Document(s) Lipase [Enzymatic activity/volume] in Serum or Plasma 24 U/L 13 - 60 [facility] ID Date Data Source [id number] 10/24/2019 01:25:00 PM EDT [facility] Name Value Range Interpretation Code Description Data Glenda rce(s) Supporting Document(s) COMPREHENSIVE METABOLIC PANEL [facility] COMPREHENSIVE METABOLIC PANEL Sodium [Moles/volume] in Serum or Plasma 139 mEq/L 134 - 153 [facility] Potassium [Moles/volume] in Serum or Plasma 4.3 mEq/L 3.6 - 5.0 [facility] Chloride [Moles/volume] in Serum or Plasma 102 mEq/L 98 - 107 [facility] Carbon dioxide, total [Moles/volume] in Serum or Plasma 25 MEQ/L 22 - 30 [facility] Glucose [Mass/volume] in Serum or Plasma 299 MG/DL 65 - 110 H [facility] BUN 13 MG/DL 7 - 21 [facility] Creatinine [Mass/volume] in Serum or Plasma 0.8 MG/DL 0.7 - 1.5 [facility] BUN/CREAT 16 8 - 27 [facility] Protein [Mass/volume] in Serum or Plasma 5.9 G/DL 6.3 - 8.2 L [facility] Albumin [Mass/volume] in Serum or Plasma 3.7 G/DL 3.9 - 5.0 L [facility] Globulin [Mass/volume] in Serum by calculation 2.2 GM/DL 2.4 - 3.2 L [facility] A/G RATIO 1.7 0.8 - 2.0 [facility] Calcium [Mass/volume] in Serum or Plasma 8.9 MG/DL 8.4 - 10.2 [facility] Bilirubin.total [Mass/volume] in Serum or Plasma 1.1 MG/DL 0.2 - 1.3 [facility] Alkaline phosphatase [Enzymatic activity/volume] in Serum or Plasma 106 U/L 38 - 126 [facility] Aspartate aminotransferase [Enzymatic activity/volume] in Serum or Plasma 28 U/L 5 - 40 [facility] Alanine aminotransferase [Enzymatic activity/volume] in Seru m or Plasma 63 U/L 7 - 56 H [facility] Anion gap 3 in Serum or Plasma 12.0 mmol/L 8.0 - 16.0 [facility] AGE [address] [facility] NON-AA GFR >60 mL/min [facility] AFR AMER GFR >60 mL/min [facility] Male GFR In terprentation 20-49 [...] >32 mL/min Normal ID Date Data Source [id number] 10/24/2019 01:25:00 PM EDT [facility] Name Value Range Interpretation Code Description Data Glenda rce(s) Supporting Document(s) BNP 171 PG/ML 0 - 125 H [facility] ID Date Data Source [id number] 10/24/2019 01:07:00 PM EDT [facility] Name Value Range Interpretation Code Description Data Glenda rce(s) Supporting Document(s) Fibrin D-dimer FEU [Mass/volume] in Platelet poor plasma 0.97 ug /mL 0.27 - 0.50 H [facility] ID Date Data Source [id number] 10/24/2019 01:03:00 PM EDT [facility] Name Value Range Interpretation Code Description Data Glenda rce(s) Supporting Document(s) Prothrombin time (PT) 11.8 SECONDS 11.0 - 15.5 [facility] INR in Platelet poor plasma by Coagulation assay 0.86 0.93 - 1. 23 L [facility] aPTT in Blood by Coagulation assay 21.7 SECONDS 24.8 - 36.7 L [facility] \\BLDo\\INR INTERPRETATION\\BLDx\\ Therapeutic range for Coumadin and related oral anticoagulants. - International Normalized Ratio (INR): 2.0 - 3.0 for Venous Thrombosis, Pulmonary Embolus, Tissue heart valves, Acute [place] Atrial Fibrillation, Valvular heart disease and recurrent Systemic Embolism. - International Normalized Ratio (INR): 2.5 - 3.5 for Mechanical Prosthetic valve. ID Date Data Source [id number] 10/24/2019 12:59:00 PM EDT [facility] Name Value Range Interpretation Code Description Data Glenda rce(s) Supporting Document(s) CBC W/AUTOMATED DIFF [facility] COMPLETE BLOOD COUNT Leukocytes [#/volume] in Blood by Automated count 11.8 10^3/uL 4.2 - 11.0 H [facility] Erythrocytes [#/volume] in Blood by Automated count 4.72 10^6/uL 4. 20 - 5.40 [facility] Hemoglobin [Mass/volume] in Blood 15.1 g/dL 12.0 - 16.0 [facility] Hematocrit [Volume Fraction] of Blood by Automated count 46.4 % 3 7.0 - 47.0 [facility] Erythrocyte mean corpuscular volume [Entitic volume] by Auto mated count 98.3 fL 81.0 - 101 [facility] Erythrocyte mean corpuscular hemoglobin [Entitic mass] by Automated count 32.0 pg 27.0 - 34.0 [facility] Erythrocyte mean corpuscular hemoglobin concentration [Mass/volume] by Automated count 32.5 g/dL 31.0 - 36.0 [facility] Erythrocyte distribution width [Ratio] by Automated count 11.9 % 11.5 - 14.5 [facility] Platelets [#/volume] in Blood by Automated count 303 10^3/uL 150 - 45 0 [facility] Platelet mean volume [Entitic volume] in Blood by Automated count 9.6 fL 7.4 - 10.4 [facility] Neutrophils/100 leukocytes in Blood by Automated count 76.1 % 37. 0 - 80.0 [facility] Lymphocytes/100 leukocytes in Blood by Manual count 13.0 % 25.0 - 40.0 L [facility] Monocytes/100 leukocytes in Blood by Automated count 7.6 % 3.0 - 8.0 [facility] Eosinophils/100 leukocytes in Blood by Automated count 1.6 % 0.0 - 7.0 [facility] Basophils/100 leukocytes in Blood by Automated count 0.8 % 0.0 - 2.5 [facility] %IG 0.9 % 0.0 - 0.[address] [facility] %NRBC 0.0 % 0.0 - 0.0 [facility] Neutrophils [#/volume] in Blood by Automated count 8.98 10^3/uL 2.00 - 6.90 H [facility] Lymphocytes [#/volume] in Blood by Automated count 1.54 10^3/uL 0.60 - 3.40 [facility] Monocytes [#/volume] in Blood by Automated count 0.90 10^3/uL 0.00 - 0.90 [facility] Eosinophils [#/volume] in Blood by Automated count 0.19 10^3/uL 0.00 - 0.70 [facility] Basophils [#/volume] in Blood by Automated count 0.09 10^3/uL 0.00 - 0.20 [facility] #IG 0.11 10^3/uL 0.00 - 0.[address] [facility] #NRBC 0.00 10^3/uL 0.00 - 0.00 [facility] MANUAL DIFF NOT INDICATED [facility] RBC MORPH NOT INDICATED [facility] ID Date Data Source [id number] 10/24/2019 05:10:00 PM EDT [facility] Name Value Range Interpretation Code Description Data Glenda rce(s) Supporting Document(s) Hemoglobin A1c/Hemoglobin.total in Blood 10.0 % 4.4 - 6.1 H [facility] {A1]{HB] ID Date Data Source [id number] 07/20/2019 07:32:15 PM EDT [facility] Name Value Range Interpretation Code Description Data Glenda rce(s) Supporting Document(s) Progress Note [facility] EGAYBs6fDzFFQcJl40/JLQaqQQOrg8QkHAimHMk9BNkiYCLfT7MtVJI2fR4dLVA9QLeCQsTfIlDkMQAr lbm [file] AgICAgICAgICAgICAgICAgICAgICAgICAgICAgICAgICAgICAgICAgICAgICAgICAgICAgICAgICAgIC FkLOIrRJRgKRWzSWWlHT3GLQMkEKBlPDBiICTdPYGh ICAgICAgICAgICAgICAgICAgICAgICAgICAgICAgICAgICAgICAgICAgICAgICAgICAgICAgICAgICAg SVHwYHFeTAYdEBPtJABkVGPqIUZlPYPmVL0MCQZpFRVcNCEbACVnXUPrWULkEEOvSRRwGMOnJRGhTPXc ICAgICAgICAgICAgICAgICAgICAgICAgICAgICAgIC DfVLDkCBOzWJUcSCSgATRfQDEsPOIjPWMsKMHeMSXtEMRiTG3KNLSgTDUnNZBwYTIeCNKaQINkJYOyTX AgICAgICAgICAgICAgICAgICAgICAgICAgICAgICAgICAgICAgICAgICAgICAgICAgICAgICAgICAgIC NqIJAoIMBgKMRiBNBrLSNuCI6PHSEcWYCnSKXgWBWt ICAgICAgICAgICAgICAgICAgICAgICAgICAgICAgICAgICAgICAgICAgICAgICAgICAgICAgICAgICAg NKJlZGMvMMDcTKUcIGPjZOBhKHPtNIRkPXBeHT5RPXIdCEFiPZPlSIJsNISuWZXqORNdLFSzXRDdZMMn ICAgICAgICAgICAgICAgICAgICAgICAgICAgICAgIC HkWBRvADVrTXArKQNtVKUfLSXsTQLeCWEuRKLlTOBcSAIfNBEpHB6CARNcKEWyGYNsMOIvCRAzVNEvNJ AgICAgICAgICAgICAgICAgICAgICAgICAgICAgICAgICAgICAgICAgICAgICAgICAgICAgICAgICAgIC BnICNzHVYbONGlCNXgVFQtXTLsLF5VIIZfAIByXDTg ICAgICAgICAgICAgICAgICAgICAgICAgICAgICAgICAgICAgICAgICAgICAgICAgICAgICAgICAgICAg BPKiXKDhFDLeSZNxSUKlKEKtVEHfNJWwWDTkVKBbDA3SVVFcOWQgCNAhVXEhSVNqBIDzDSPeWPOmABMw ICAgICAgICAgICAgICAgICAgICAgICAgICAgICAgIC SyLSHiQGAkLWCuJZPvCNQqUHIhECRgLNDyFSFnQSDlSMKiTLEjZONfQI9NSHItRTEnHNGcSMEkCLAtGD AgICAgICAgICAgICAgICAgICAgICAgICAgICAgICAgICAgICAgICAgICAgICAgICAgICAgICAgICAgIC XnYOIvHIVyWUQdJSEhBPHnGWWwENSfYR0ZRW68yDIz f9U4FPYoQU4zlbo/Xf3EEEgfdrKicLCuFY8PMiAbPY3had0JJnUbQB5swo7MNQwEHnIxY5L9qLBjUHAe XNJQCqRiX08iKGqzOp93WLucNEQsWjFmTPl2Mn2ZTpVrC5tkFULcCkJ5DCXyYzS3MDGvGuO2OLRcTyUy NQOmKZIwHWQqTXGDDOO4VLAyFgKmYiMnLVZlPUrbFH GCPC1KXlBcY8RuxX56ERsFMi7+ELrvtsIzAewAXxN0OYVkn0LyZIm1OA5ZHXEbKnwwm5QfSSFtCHWDCL glRY6KRED0ECKyPJExKa9XRDXgR041lrAwNY1RTv4PHySuKF0dwj8GKQZaYZAuBrhNDzu8FAojVW2CjQ KfWUtXex9dohIkbuJFx0FjujWrfOHJsNWrM5cgacdz MWJcBD8COHM5OKTqQgZaSuHhVJXjQQplOVYLVEwZZmWhQ6Lvp5DdOiB9CLKkIbMuGGvkDQBwGnA9LY16 oLvaZE3ZWPCzRQCdAV34DKH7SDQdUp4LCn9POsUoWJ5vzb1AOLYsGVVxJkpIApz7WVvsPT7OpBZxS5Gg bJGul7iIDhRxH0TFSTY2NVHnPi5HWGZjHfXhLQVbYS hbQM1oRPIzXQDGbRqrxgX7IQ2QYB8yioMaZN5BKxXwOd4qAp6QHzIxC5RqC2LaOYSzMIALLHjsKM8VBG sxTK5tLC3No9QXyNIlaX0jwn9EFTSmVBRyUfrtba8VWlxwT2Z1jQymMIEgSfztKWMYXNebLD5YFKImQG W2UILbEEKbUTYRVqTuA78fBK5SC2Hst14uIeI5CGBb IiMlMHicIE12zSeizxOptSJsdDcbPL7LCe1+DQplbmRvYmoNCnhyZWYNCjAgNDINCjAwMDAwMDAwMDAg KiN9CfJiOo3HTUClUANtZZMfMeHoBVSsTKZhJSkoATQhIJI8PTCzTPVtMMThFG6WZbFsINDvJXsqHABg NASbAEIfuh5THIEdIPZfHCD0KgIcNKSySZBuXVutTP MrIGB2NARaANNaQUKgFZ9PMzVvLGIdXITpUNnsDTKzIUBllx9AOTBtEOMzBQB2RwXyFHEtCRWdTSksAN TlSCZ3PLN4GPEoFFAxMT4IVbSvTFKtURHfCUOfVAXsKZHoza5GIFUhMGTzHrB1EHQcEXPwHIFiLQzpYK DzWRH6TMJ4TEMwJEQoMG9TLhAiSHZbDEAcYWYqSTVr CBViel7KVVAsFFCsPJCuDNUcHZUtWKJeUUwtLESlQOE8HpA9HMDuCQDsVR0VZeZaJFMuJfK2GiuxMLQk XUPpza1WRGJmFQBhHsf9QMYyCETdNBEyWMfjANQxEVJ8GLO9ASPbNJIwYC5GFuDfWGZhKbKyTyOsKAOj DKJryq1RPYNaFVZdDoX2HDRnCVOyLUOxSYwmFTZdHY X2THPaGGJtIKVaTO0RVcJaGJFgZix8CjPbOUWnYZWxhf4TUHUgGEApENUiHaGwOELpVXBtVLfwFSAbLA P0CgBxKMXmMOMkTO4SJmIbFXUxKsIrONqbRRTiLCVfhf4TJLLqMWWiEZP3WNUgAYIcZZUrMKnmVBWjPS DoOCI0BUNjACFjDF1BCoLtQQZaNMD0AxsoJANhXVCh ee3OBQPdKGJ4LgJtSHSfRUVzQANzMRaqJAHxUPNmSUHiUTLiSDQxEK9DOkNnSVCwUHP5VqZeOHJoBMGe eh6LZQOsXSR2BfdmSYGdANLjTQUfGCbrMRHdNXTtBUKyAOIzCVPfVJ8FKeDtIZUtSMUsONCuWLUoNVSu zj2TQWCaYUL2RTUvZPOeYKQqVYRtONnoWDPfEEE4RE B3MLHuAELaWX2JWiZeWZScPYOtHILfCXHaYUZsln9ZFOPwFDZ0CKNhYHJpBJGiBSFyBLagSIOwXUS6RE J6UUXhELMqFN0ZApGzZJRjPPj2VRxwVOMrRGFliw8JLGQcRUJ5EtRsKHPzNHPqUWLuEZipKEAyIML9Yn U1WXPyWZUlZR5GSyJfLSmfQNLHYif6ZSusL5v8OAO9 Wc3BA4Cju3UfDFLxXVLKAIjsQG3qqxEiZSZgWx6UD6pLDslfOCD4SLLgKHZiOjGgJPH0NQNyXSD6EvZn ZyY7KUIqKE6eWKB2MnlbTxDxNBH5UcSxTSbeCzMdYafiUmWdDATmCIS2QmLuDK0YSq9NVaE3TUQ4dSBf Eg5RDYg0VIYLHaEeXP5RZEu= ID Date Data Source GATS (NEGATIVE STREP SCREEN) 04/10/2019 12:00:00 AM EST eCW1 ([facility]) Name Value Range Interpretation Code Description Data Glenda rce(s) Supporting Document(s) FULL REPORT IN LAB NOTES (eCW and [facility]). GATS CULTURE (NEG STREP SCR) eCW1 ([facility]) Procedure Social History Code Duration Value Status Description Data Source(s ) Alcohol intake 01/03/2020 12:00:00 AM EDT Current non-d carisa of alcohol (finding) completed Current non-drinker of alcohol (finding) [facility] Tobacco use and exposure 01/03/2020 12:00:00 AM EDT Never used co mpleted Never used [facility] Smoking 01/03/2020 12:00:00 AM EDT Never smoker completed Never s moker [facility] Alcohol intake 07/13/2019 12:00:00 AM EDT Current non-d carisa of alcohol (finding) completed Current non-drinker of alcohol (finding) [facility] Vital Signs ID Date Data Source UNK Name Value Range Interpretation Code Description Data Source(s) Diastolic blood pressure 85 mm[Hg] 85 mm[Hg] eCW1 ([facility]) Systolic blood pressure 121 mm[Hg] 121 mm[Hg] e CW1 ([facility]) Body temperature [degF] eCW1 ([facility]) Respiratory rate 16 /min 16 /min eCW1 ([facility]) Heart rate 98 /min 98 /min eCW1 ([facility]placed by [facility]) Body mass index (BMI) [Ratio] 43.25 kg/m2 43.25 kg/m2 eCW1 ([facility]) Body height 64 [in_us] 64 [in_us] eCW1 ([facility]) Body weight Measured 252 [lb_av] 252 [lb_av] eC W1 ([facility]) ID Date Data Source [id number] 01/05/2020 03:06:09 PM [facility] Name Value Range Interpretation Code Description Data Source(s) WEIGHT RECORDED 248 lb 248 lb [facility] Body height Measured 64.02 in 64.02 in [facility] ID Date Data Source [id number] 11/05/2019 01:31:23 PM [facility] Name Value Range Interpretation Code Description Data Source(s) WEIGHT RECORDED 246.00 pounds 246.00 pounds [facility] Height 64 Inches 064 Inches [facility] Patient Treatment Plan of Care Planned Activity Planned Date Details Description Data Source (s) methylPREDNISolone 4 MG Oral Tablet Therapy Pack (MEDR OL DOSEPACK) 01/03/2020 12:00:00 AM [facility] ospital Oxycodone Hydrochloride 5 MG Oral Tablet 12/15/2019 12:00:00 AM [facility] 3 ML Insulin Glargine 100 UNT/ML Pen Injector [Lantus] 12/13/2019 12:00:00 AM [facility]spital Belimumab 200 MG/ML Subcutaneous Solution Auto-injecto r (BENLYSTA) 07/13/2019 12:00:00 AM [facility] H ospital methylPREDNISolone 4 MG Oral Tablet Therapy Pack (MEDR OL (LAZ)) 04/26/2019 12:00:00 AM [facility] H [facility]spital Sulfamethoxazole 800 MG / Trimethoprim 160 MG Oral Tab let [Bactrim] 04/10/2019 12:00:00 AM EST eCW1 ([facility])
[2020-05-06 14:41] LABS: ALBUMIN 3.2 GM/DL (3.2-5.2); ALT/SGPT 136 U/L (12-78); BILIRUBIN,DIRECT 0.4 MG/DL (0.0-0.2); BILIRUBIN,TOTAL 1.6 MG/DL (0.2-1.0); BLOOD UREA NITROGEN 14 MG/DL (7-18); CALCIUM LEVEL 8.4 MG/DL (8.5-10.1); CARBON DIOXIDE LEVEL 28 MEQ/L (21-32); CHLORIDE LEVEL 106 MEQ/L (98-107); CK-MB VALUE MASS < 1.0 NG/ML (<3.6); CPK CREATINE PHOSPHOKINASE 33 U/L (26-192); CREATININE FOR GFR 0.85 MG/DL (0.55-1.30); GLOMERULAR FILTRATION RATE > 60.0 (>51); GLUCOSE, FASTING 158 MG/DL (70-100); MB/CK RELATIVE INDEX 3.03 (< OR =4); POTASSIUM SERUM 4.6 MEQ/L (3.5-5.1); SODIUM LEVEL 141 MEQ/L (136-145); TOTAL PROTEIN 6.3 GM/DL (6.4-8.2)
[2020-05-06] MEDS ORDERED: ACETAMINOPHEN 500 MG TAB PO ONE (14:45)
[2020-05-06] MEDS ORDERED: cefTRIAXone SOD 1 GM in D5W MINI-BAG PLUS 50 ML IV ONE (16:15)
--- NOTE | 2020-05-06 16:25 | REP ---
INDICATION: SOB, fever, crackles in RLL. COMPARISON: 11/16/2019. TECHNIQUE: CT chest performed without the use of intravenous contrast. Sagittal and coronal reconstruction images are performed. FINDINGS: Lungs: Mild patchy ground-glass infiltrates throughout the right lung. There is a more confluent infiltrate in the posterior right lower lobe. Mediastinum: No gross adenopathy. Evi: No gross adenopathy. Axilla: No gross adenopathy. Pleura: No effusion. There is stable mild anterior pericardial thickening. Heart: Not enlarged. Thoracic aorta: No aneurysm. Upper abdominal structures: There is a small hiatal hernia. There has been a prior cholecystectomy. Visualized osseous structures: Degenerative changes of the spine without compression deformity. IMPRESSION: Diffuse patchy ground-glass infiltrates throughout the right lung with small area of more confluent infiltrate in the right lower lobe. <Electronically signed by Naveen Torres > 05/06/20 [id number]
[2020-05-06] MEDS ORDERED: CEFD1CAP8 PO (16:41)
[2020-05-06] MEDS ORDERED: ZITHTAB PO (16:41)
[2020-05-06 16:52] VITALS: BP 151/75
--- NOTE | 2020-05-07 08:52 | ECGEPIP ---
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
== END 2020-05-06 16:55 | disposition home or self-care (01) ==
LOC: M ED 12:45
DX: J18.9 Pneumonia, unspecified organism (principal); I25.2 Old myocardial infarction; E11.9 Type 2 diabetes mellitus without complications; I10 Essential (primary) hypertension; M79.7 Fibromyalgia; M32.9 Systemic lupus erythematosus, unspecified; Z88.8 Allergy status to other drugs, medicaments and biological substances; Z79.51 Long term (current) use of inhaled steroids; Z79.899 Other long term (current) drug therapy
CPT/HCPCS: 71045; 71250; 80048; 80076; 82550; 82553; 83605; 85025; 87040; 87486; 87581; 87633; 87798; 93005; 93041; 94760; 96365; 99285; J0696

== ENCOUNTER 2020-05-31 14:48 | Observation (INO) | payer OTHER ==
[~2020-05-31] VITALS: Ht 162.6 cm; Wt 116.3 kg
[~2020-05-31 14:48] MED LIST changes: +CEFD1CAP8 PO; +ZITHTAB PO
--- OUTSIDE RECORDS SUMMARY | 2020-05-31 15:30 | CCD ---
Author Author [facility] Organization [facility] Address Unknown Phone Unavailable Care Team Providers Care Event Executive Name Role Phone Radha HENRY JAGDEEP Unavailable Unavailable TURRIN, JAMES Unavailable Unavailable TURRIN, JAMES Unavailable Unavailable TURRIN, JAMES Unavailable Unavailable TURRIN, JAMES Unavailable Unavailable Ashleigh Falanga, A Janice RADIATOR SPECIALIST Unavailable Unavailable [place] Falanga, A Janice RADIATOR SPECIALIST Unavailable Unavailable Ashleigh Falanga, A Janice RADIATOR SPECIALIST Unavailable Unavailable [place] Falanga, A Janice RADIATOR SPECIALIST Unavailable Unavailable [place] Falanga, A Janice RADIATOR SPECIALIST Unavailable Unavailable Ashleigh Falanga, A Janice RADIATOR SPECIALIST Unavailable Unavailable Ashleigh Falanga, A Janice RADIATOR SPECIALIST Unavailable Unavailable [place] Falanga, A Janice RADIATOR SPECIALIST Unavailable Unavailable [place] Falanga, A Janice RADIATOR SPECIALIST Unavailable Unavailable [place] Falanga, A Janice RADIATOR SPECIALIST Unavailable Unavailable Ashleigh Falanga, A Janice RADIATOR SPECIALIST Unavailable Unavailable [place] Falanga, A Janice RADIATOR SPECIALIST Unavailable Unavailable Ashleigh Falanga, A Janice RADIATOR SPECIALIST Unavailable Unavailable [place] Falanga, A Janice RADIATOR SPECIALIST Unavailable Unavailable [place] Falanga, A Janice RADIATOR SPECIALIST Unavailable Unavailable [place] Falanga, A Janice RADIATOR SPECIALIST Unavailable Unavailable [place] Falanga, A Janice RADIATOR SPECIALIST Unavailable Unavailable Ashleigh Falanga, A Janice RADIATOR SPECIALIST Unavailable Unavailable Ashleigh Falanga, A Janice RADIATOR SPECIALIST Unavailable Unavailable [place] Falanga, A Janice RADIATOR SPECIALIST Unavailable Unavailable [place] Falanga, A Janice RADIATOR SPECIALIST Unavailable Unavailable [place] Falanga, A Janice RADIATOR SPECIALIST Unavailable Unavailable Ashleigh Falanga, A Janice RADIATOR SPECIALIST Unavailable Unavailable Ashleigh Falanga, A Janice RADIATOR SPECIALIST Unavailable Unavailable Ashleigh Falanga, A Janice RADIATOR SPECIALIST Unavailable Unavailable Ashleigh Falanga, A Janice RADIATOR SPECIALIST Unavailable Unavailable [place] Falanga, A Janice RADIATOR SPECIALIST Unavailable Unavailable Ashleihg Falanga, A Janice RADIATOR SPECIALIST Unavailable Unavailable [place] Falanga, A Janice RADIATOR SPECIALIST Unavailable Unavailable Ashleigh Falanga, A Janice RADIATOR SPECIALIST Unavailable Unavailable BERRY BEJARANO MD Unavailable Unavailable [...] Unavailable BERRY BEJARANO MD Unavailable Unavailable BERRY BEAJRANO MD Unavailable Unavailable BERRY BEJARANO MD Unavailable [...] NOT IN PROVIDER Unavailable Unavailable DESJARLAIS, SARAH ELEMENTARY VOCAL MUSIC TEACHER Unavailable Unavailable DESJARLAIS, SARAH ELEMENTARY VOCAL MUSIC TEACHER Unavailable Unavailable DESJARLAIS, SARAH ELEMENTARY VOCAL MUSIC TEACHER Unavailable Unavailable DESJARLAIS, SARAH ELEMENTARY VOCAL MUSIC TEACHER Unavailable Unavailable DESJARLAIS, SARAH ELEMENTARY VOCAL MUSIC TEACHER Unavailable Unavailable DESJARLAIS, SARAH ELEMENTARY VOCAL MUSIC TEACHER Unavailable Unavailable DESJARLAIS, SARAH ELEMENTARY VOCAL MUSIC TEACHER Unavailable Unavailable DESJARLAIS, SARAH ELEMENTARY VOCAL MUSIC TEACHER Unavailable Unavailable DESJARLAIS, SARAH ELEMENTARY VOCAL MUSIC TEACHER Unavailable Unavailable Re-disclosure Warning The records that [...] is protected by Article 27-F of the [facility] Public Health law. If you continue you may have access to information: Regarding HIV / AIDS; Provided by facilities licensed or operated by the [facility] Office of Mental Health; or Provided by the [facility] Office for People With Developmental Disabilities. If such information is present, then the following [facility] mandated warning applies: This information has been [...] law may result in a fine or longterm sentence or both. A general authorization for the release of medical or other information is NOT sufficient authorization for further disc losure. Allergies and Adverse Reactions Type Description Substance Reaction Status Data Source(s ) Food allergy KIWI FRUIT EXTRACT KIWI FRUIT EXTRACT [facility] Drug allergy LAMOTRIGINE LAMOTRIGINE [facility] Drug allergy ONDANSETRON ONDANSETRON [facility] Kiwi Kiwi Kiwi throat swelling Active eCW1 ([facility]) Lamotrigine Lamotrigine Lamotrigine Rash Active eCW1 ([facility]) Family History Family Member Name Family Member Gender Family Member Status Date o f Status Description Data Source(s) Unknown Unknown Problem MEDENT ([facility] ) Unknown Unknown Problem MEDENT ([facility] ) Unknown Unknown Problem MEDENT ([facility] ) Unknown Unknown Problem MEDENT ([facility] ) Unknown Female Problem MEDENT ([facility] ) Encounters Encounter Providers Location Date Indications Data Source(s ) Outpatient Attender: CORRINA BEJARANO MD 07/03/2020 12:00:00 A M [facility] Outpatient Attender: JAGDEEP HENRY 05/15/2020 02:00:00 PM [facility] Outpatient Attender: JAGDEEP HENRY 05/02/2020 03:00:00 PM [facility] Outpatient Attender: JAGDEEP HENRY 04/17/2020 02:00:00 PM [facility] Outpatient Attender: SARAH BELCHER NP 04/04/2020 02: 00:00 PM [facility] Outpatient Attender: JAGDEEP HENRY 03/27/2020 02:00:00 PM [facility] Outpatient Attender: JAGDEEP HENRY 02/08/2020 01:00:[address] [facility] Outpatient Attender: CORRINA BEJARANO MD 01/31/2020 12:00:00 A M [facility] Outpatient Attender: JAGDEEP HENRY 01/20/2020 01:00:[address] [facility] Outpatient Attender: CORRINA BEJARANO MD 01/17/2020 12:00:00 A M EDT [facility] Outpatient Attender: CORRINA BEJARANO MD [id number] 2019 12:00:00 AM EDT - 01/04/2020 12:00:00 AM EDT Systemic lupus erythematosus, unspecified [facility] Systemic lupus erythematosus, unspecifie d Outpatient Attender: JAGDEEP HENRY 12/23/2019 03:00:[address] [facility] Outpatient Referrer: PROVIDER SYSTEM IN 11/26/2019 1 1:33:00 AM EDT new onset seizure [facility] new onset seizure Outpatient Attender: Janice Feliz FNPAttender: ALEXANDRA BAR 10/24/2019 12:24:00 PM EDT - 10/26/2019 01:00:[address] [facility] Patient discharged. Outpatient Attender: CORRINA BEJARANO MD [id number] 2019 12:00:00 AM EDT - 07/13/2019 10:39:22 AM EDT Systemic lupus erythematosus, unspecified [facility] Systemic lupus erythematosus, unspecifie d [facility] [address] [address] 04/10/2019 12:00:00 AM EST eCW1 ([facility]) Medications Medication Brand Name Start Date Product Form Dose Route Admi nistrative Instructions Pharmacy Instructions Status Indications Reaction Description Data Source(s) methylPREDNISolone 4 MG Oral Tablet Therapy Pack (MEDROL DOS EPACK) [id number] 01/03/2020 12:00:00 AM EDT active follow package directions [facility] Oxycodone Hydrochloride 5 MG Oral Tablet oxyCODONE HCl 5 MG Oral Tablet (ROXICODONE) oxyCODONE HCl 5 MG Oral Tablet (ROXICODONE) 12/15/2019 12:00:00 AM EDT active [facility] 3 ML Insulin Glargine 100 UNT/ML Pen Inj barrett [Lantus] Lantus SoloStar 100 UNIT/ML Subcutaneous Solution Pen-injector Lantus SoloStar 100 UNIT/ML Subcutaneous Solution Pen-injector 12/13/2019 12:00:00 AM EDT active [facility] Belimumab 200 MG/ML Subcutaneous Solution Auto-injector (PANKAJ LYSTA) [id number] 07/13/2019 12:00:00 AM EDT 200 mg Subcutaneous active Inject 1 mL into the skin every 7 (seven) days [facility] methylPREDNISolone 4 MG Oral Tablet Therapy Pack (MEDROL (PA K)) [id number] 04/26/2019 12:00:00 AM EST 8 mg Oral aborted Take 2 tablets by mouth Two Times Daily follow package directions [facility] Sulfamethoxazole 800 MG / Trimethoprim 1 60 MG Oral Tablet [Bactrim] Bactrim DS 800-160 MG Bactrim DS 800-160 MG 04/10/2019 12:00:00 AM EST active 1 tablet [facility] ([facility]) Insurance Providers Payer name Policy type / Coverage type Policy ID Covered alliance party ID Covered alliance party's relationship to fabian Policy Fabian Plan Information [facility] [id number] WI2 [id number] [place] WPS [id number] SPO [id number] [facility] WPS [id number] SPO [id number] HUMAN [place] O [id number] C [id number] U [id number] Self [id number] [facility] HUMANA - O/P [id number] 01 [id number] ANSI-Not a Secondary Insurance [id number] ANSI-Commercial [id number] [place] Claims F [id number] SELF [id number] [place] Claims F [id number] SELF [id number] N REGIONAL CLAIMS PAM -O/P [id number] 01 [id number] [facility] Health Maintenance Organization (HMO) [id number] Family Dependent [id number] [facility] ([facility] Health Maintenance Organization (HMO) [id number] Family Dependent [id number] [facility] Health Maintenance Organization (HMO) [id number] Family Dependent [id number] [place] (2018) Health Maintenance Organization (HMO) [id number] Family Dependent [id number] [place]AST HUMANA [id number] HU2 [id number] [facility] Health Maintenance Organization ([facility]) [id number] Family Dependent [id number] [facility] [id number] HU2 [id number] U [id number] Spouse [id number] U [id number] Self [id number] [facility] Health Maintenance Organization (HMO) [id number] Family Dependent [id number] [facility] [id number] HU2 [id number] U [id number] Spouse [id number] SELF PAY ONLY UNAVAILABLE SP UNAV AILABLE [facility] Commercial [id number] Family Dependent [id number] HEALTHNET/ AD O [id number] S [id number] [facility] BRANT O [id number] S [id number] [facility] Commercial [id number] Family Dependent [id number] [facility] Health Maintenance Organization ([facility]) [facility] Federal Service Commercial [facility] F PLEASE GET SELF PLEASE GET [facility] [id number] [id number] [facility] BRANT O [id number] S [id number] Problems, Conditions, and Diagnoses Code Display Name Description Problem Type Effective Dates Data Source(s) F43.9 Reaction to severe stress, unspecified R EACTION TO SEVERE STRESS, UNSPECIFIED Diagnosis 05/15/2020 02:00:00 PM [facility] F32.9 Major depressive disorder, single episod e, unspecified MAJOR DEPRESSIVE DISORDER, SINGLE EPISODE, UNSPECI Diagnosis 05/15/2020 02:00:00 PM [facility] F41.9 Anxiety disorder, unspecified ANXIETY DISORDER, UNSPEC IFIED Diagnosis 05/15/2020 02:00:00 PM [facility] F43.23 Adjustment disorder with mixed anxiety a nd depressed mood ADJUSTMENT DISORDER WITH MIXED ANXIETY AND DEPRESS Diagnosis 04/04/2020 02:00:00 PM [facility] new onset seizure new onset seizure Diagnosis 11/26/2019 11:33:00 AM EDT [facility] F339 Major depressive disorder, recurrent, un specified Major depressive disorder, recurrent, unspecified Diagnosis 10/24/2019 12:24:[address] [facility] F419 Anxiety disorder, unspecified Anxiety disorder, unspec ified Diagnosis 10/24/2019 12:24:[address] [facility] M797 Fibromyalgia Fibromyalgia Diagnosis 10/24/2019 12:24:[address] [facility] M329 Systemic lupus erythematosus, unspecifie d Systemic lupus erythematosus, unspecified Diagnosis 10/24/2019 12:24:[address] [facility] M545 Low back pain Low back pain Diagnosis 10/24/2019 12:24:[address] [facility] Z6841 Body mass index (BMI) 40.0-44.9, adult B danette mass index (BMI) 40.0-44.9, adult Diagnosis 10/24/2019 12:24:[address] 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 E119 Type 2 diabetes mellitus without complic ations Type 2 diabetes mellitus without complications Diagnosis 10/24/2019 12:24:[address] [facility] R0902 Hypoxemia Hypoxemia Diagnosis 10/24/2019 12:24:[address] [facility] J189 Pneumonia, unspecified organism Pneumonia, unspecified organism Diagnosis 10/24/2019 [facility]Procedures Procedure Description Date Indications Data Source(s) QUANTIFERON-TB GOLD PLUS QUANTIFERON-TB GOLD PLUS Routine 01/03/2020 4:13 PM EDT Systemic lupus erythematosus, unspecified SLE type, unspecified organ involvement status High risk medication use BETHANY positive 01/03/2020 04:13:00 PM EDT BETHANY positiveH igh risk medication useSystemic lupus erythematosus, unspecified SLE type, unspecified organ involvement status [facility] BETHANY positive High risk medication use Systemic [...] unspecified SLE type, unspecified organ involvement status [facility] BETHANY positive High risk medication use Systemic [...] unspecified SLE type, unspecified organ involvement status [facility] BETHANY positive High risk medication use Systemic lupus erythematosus, unspecifie d SLE type, unspecified organ involvement status ANTINUCLEAR ANTIBODIES BETHANY BETHANY Routine 01/03/2020 4 :13 PM EDT Systemic lupus erythematosus, unspecified SLE type, unspecified organ involvement status High risk medication use BETHANY positive 01/03/2020 04:13:00 PM EDT BETHANY positiveH igh risk medication useSystemic lupus erythematosus, unspecified SLE type, unspecified organ involvement status [facility] BETHANY positive High risk medication use Systemic lupus erythematosus, unspecifie d SLE type, unspecified organ involvement status COMPREHENSIVE METABOLIC PANEL COMPREHENSIVE METABOLIC PANEL Rou garcia 01/03/2020 4:13 PM EDT Systemic lupus erythematosus, unspecified SLE type, unspecified organ involvement status High risk medication use BETHANY positive 01/03/2020 04:13:00 PM EDT BTEHANY positiveH igh risk medication useSystemic lupus erythematosus, unspecified SLE type, unspecified organ involvement status [facility] BETHANY positive High risk medication use Systemic lupus erythematosus, unspecifie d SLE type, unspecified organ involvement status STREP A ASSAY W/OPTIC 04/10/2019 12:00:00 AM EST eCW1 ([facility]) Results ID Date Data Source [id number] 05/06/2020 01:37:00 PM EST [facility] Name Value Range Interpretation Code Description Data Glenda rce(s) Supporting Document(s) SARS-CoV-2 (COVID 19) NEGATIVE - SARS-CoV-2 (COVID19) [facility] This lab was ordered by [facility] a nd reported by [facility]. ID Date Data Source [id number] 01/05/2020 08:05:05 AM EDT [facility] Name Value Range Interpretation Code Description Data Glenda rce(s) Supporting Document(s) Progress Note [facility] WITSYa9fVlPBVuUh50/ESUycKOIwe2KyELnkDLv3CHfaBWEqE4JpOJR6cK1qUJG8OWiBLfYvAiBdWHR2 lbm [file] AgICAgICAgICAgICAgICAgICAgICAgICAgICAgICAg ICAgICAgICAgICAgICAgICAgICAgICAgICAgDQogICAgICAgICAgICAgICAgICAgICAgICAgICAgICAg ICAgICAgICAgICAgICAgICAgICAgICAgICAgICAgICAgICAgICAgICAgICAgICAgICAgICAgICAgICAg ICAgICAgICAgDQogICAgICAgICAgICAgICAgICAgIC AgICAgICAgICAgICAgICAgICAgICAgICAgICAgICAgICAgICAgICAgICAgICAgICAgICAgICAgICAgIC AgICAgICAgICAgICAgICAgICAgDQogICAgICAgICAgICAgICAgICAgICAgICAgICAgICAgICAgICAgIC AgICAgICAgICAgICAgICAgICAgICAgICAgICAgICAg ICAgICAgICAgICAgICAgICAgICAgICAgICAgICAgDQogICAgICAgICAgICAgICAgICAgICAgICAgICAg ICAgICAgICAgICAgICAgICAgICAgICAgICAgICAgICAgICAgICAgICAgICAgICAgICAgICAgICAgICAg ICAgICAgICAgICAgDQogICAgICAgICAgICAgICAgIC AgICAgICAgICAgICAgICAgICAgICAgICAgICAgICAgICAgICAgICAgICAgICAgICAgICAgICAgICAgIC AgICAgICAgICAgICAgICAgICAgICAgDQogICAgICAgICAgICAgICAgICAgICAgICAgICAgICAgICAgIC AgICAgICAgICAgICAgICAgICAgICAgICAgICAgICAg ICAgICAgICAgICAgICAgICAgICAgICAgICAgICAgICAgDQogICAgICAgICAgICAgICAgICAgICAgICAg ICAgICAgICAgICAgICAgICAgICAgICAgICAgICAgICAgICAgICAgICAgICAgICAgICAgICAgICAgICAg ICAgICAgICAgICAgICAgDQogICAgICAgICAgICAgIC AgICAgICAgICAgICAgICAgICAgICAgICAgICAgICAgICAgICAgICAgICAgICAgICAgICAgICAgICAgIC AgICAgICAgICAgICAgICAgICAgICAgICAgDQogICAgICAgICAgICAgICAgICAgICAgICAgICAgICAgIC AgICAgICAgICAgICAgICAgICAgICAgICAgICAgICAg CGTjLUCaDGYvDGVeBWKxYABuQXYoISCrEOVoOUYqKQYhGNFuZYj7C9itGMUkEOQcPJ7lSAh9Sh3+DQoN GxMqGTV3chPynA2CWZ8sz9XbMDahDAShi1OlKTm3RC8DTZHtBFkfBP9MYWvfjl2AZHUxYJSayQPZr2ih RnQbWQY6EANqKvrmEO7KBQRfR2qgncItWHJqXEYOVC pdBIGLJYjsSKHKXPZgRVJxYkZdWvInCKQtEBXiFXRENWS1GTEhEhIjPYNdJMSeAwRjAZXBQM1GVcIzN8 PlwN33DDtUTq5+BXhcxwQmYysFDnWoCCLca7WtERr0PL2ROLRrIhpwr3JjHSVsSHLJYOxuSF8EXXZ7CE RkSBIbRi3TTBEwI707vtKxUV3ATw3EKgHjMX9jja7D WUPxWTVtSsmLHdh2ZZrwWS5UoZQuPElLua4rsqKsyrSJq1KahnLqaYTCbAAiS1pavhxoYCTvAS3ZIAZ8 KAvrBWYdKrXsITTsKplnHSUVARtUQpLqG6Afq6BdJdV4YNIwRrRuAHsfNPMuFaP9KS48sDnvNV8TUQAp IFBtVQ31NAIeJRCdEk8VUf6GTsVcNG0von6EUBYmSI NxHmqALri9GCazMU5NsCKqS1QfbVOgc2nOOrQoY5APIJS7YZFeSm5WMRDdUeNqFXLjONgwVY8dXPLlKX CEgIlkbyL0UH0YUR7sorWoLJ7ALjOcYn5xVf5EZsPdP7RbD1KuYNYlMSAYWOyzWN8ROLndSB2xZH8Sk5 CGkTKizG1lhm0XWOWgHOFdHshhnh4MPhwoM8O6oFfr WUPpUYMpVKRCWCxfVH9SFTWfKUA5CWU8GIGhTMNIEfGgN57xUK6BY1Qpe74pMyS0GODlOgQqIOxgJM19 rEkehdUjoIUevJrfJE5JOn0+MPgovzWmJzaLZabtEZTQLcOrMILJDcQrOWFbFXLaAMIcDsU3UxKsYx2B ZHNhUFJuPCYyOxUsZZIoMHFnJHbmRGAzKVI3RPDsKQ RyGTNpYO2AJwWtODWuQSD5XGDwIPGlKZFrok1FSWVmAQEyAMH3PyMcCVCcFPOxGVcyRHHdFWR1JMK6KT WpLWSeKU2SIhDpGEMuVDG9EoVwCOEaGLGegy9YDNDjCGThEIRaAtRfUKCwQQGhXPchOPIpLIR2LhF2YX LcKDUzHY0CMiZeCUMsXAJaICHvJVAjLGVpee3POHLx VWBwYyS4MqUuZWFeMVEsIZgyLHVpYEV6XhO5GJEkOHCtEP3GIqFyBPIzJSH9GyCaKTBaQZVcom1XOZUr QFSiEIL0UnKkTSPcUMPuQTxhQEQfDMIpNeh2XUOcAJAzJR5WTiBcKSQhOdPvTzYrHCWyIUZrdg1ROFMp OUQiScRsXOGeBGFvWTZjYUbyECNzTVG7GIA3UXDtNQ GvGX0WJePjDKAmCeokUgJgVKDeAWCozs8JULTcQPIqNSDfTOTnFMRsEWKjANxlLANpZKN2OQMlNCQaYN FzZG7IYdNiZBViFcZsHcZtGDHzYPTrxv0JJGBwZYNvVABuFjYbFGZzPAAiXPzjJVWcNFLiIVg0ECGeGX BeVQ7OTzIoXWWnMmBsFOAmXIWqOQBlim8PAAOlJYSx IcW6CbAhNTCiEBKoGZwvIYRsCOZfSKS2SPOfZDKjYC3FNsTiQQEpXxR0IejzXRXmTCGddp5RNKNxVBEb RxexYhDmSTTiUKTmTJkaDNZsTXS5BbH1QAQwFTFrKV5UEmKwZRAaYED3TFCyRFMsFUGybf0WATCyJRN0 DGv7JASlJALxBTVlCBvaQFSbCYU7AZAwYGFzYCXrJI 0XBbIoMSWdMUBhVVStEKOrZXRzts8ANDWuQVN4NjMwIJWcIEEbLANeOFrqYCNgOXL8DZFxAYXlIWZcPL 3QCxAzBEKyGLx6DUmcHRDuFCWwab1CQXOdTID0OSA0OaZnRFCoYQBwCJceXZFdKZI7OoUyTBYqVOOqBH 2GNoWjVDGjCTn3FYzzQPBeYGIfti5PXGAdHHP2UEW4 ERHdRKYiNALaHZlnRTXuOILuOKTvQTLiIQRyXT0GZdPsRGOtGBA6SBFjDBPlJLHwta1ZTTAwHVG3PKI4 LKVrHQYrLKKdKCi3szNdhICsWMz9QO2HF1BbtpGyRETSEe1Cj897JBNtEQGoCw4CA3mnYf3uJMYwFCRJ Ys7LHRn5RBA4JUIbEbwlHym2LNygMgD8NFEuBVA7Nd RrTtE1AMX+TXiaHQk7LhS5MDUuBhn5LPBoOfqqVzN1EYRjB5YcPIDcGz3iMRIRZj0+DQpzdGFydHhyZW AQIgPqOmo8SDwoVOHMNi7I ID Date Data Source [id number] 01/03/2020 06:02:03 PM [facility] NegativeNo interferon-gamma response to M.tuberculosisantigens was detected. Infection withM. tuberculosis is unlikely. A single negativeresult does not exclude infection with M. TB.In patients at high risk for M. tuberculosisinfection, a 2nd test should be consideredin accordance with [id number] ATS/IDSA/CDC Clinical Practice Guidelinesfor Diagnosis of Tuberculosis in Adults andChildren [Cecil EMMANUEL et. al. Clin Infec.Zip5785 64(2):111-115] Name Value Range Interpretation Code Description Data Glenda rce(s) Supporting Document(s) Leukocytes [#/volume] in Blood by Automated count 9.4 10*3/uL 4-10 [facility] Erythrocytes [#/volume] in Blood by Automated count 4.62 10*6/uL 4.1- 5.3 [facility] Hemoglobin [Mass/volume] in Blood 14.8 g/dL 11.5-15.5 [facility] Hematocrit [Volume Fraction] of Blood by Automated count 44.8 % 3 6-45 [facility] Erythrocyte mean corpuscular volume [Entitic volume] by Auto mated count 97.0 fL 80-96 H [facility] Erythrocyte mean corpuscular hemoglobin [Entitic mass] by Automated count 31.9 pg 27-33 [facility] Erythrocyte mean corpuscular hemoglobin concentration [Mass/volume] by Automated count 32.9 g/dL [facility] distribution width [Ratio] by Automated count 12.4 % 11.5-14.5 [facility] Platelets [#/volume] in Blood by Automated count 225 10*3/uL 150-400 [facility] Differential cell count method - Blood [facility] Neutrophils/100 leukocytes in Blood by Automated count 64 % [facility] Lymphocytes/100 leukocytes in Blood by Automated count 27 % [facility] Monocytes/100 leukocytes in Blood by Automated count 6 % [facility] Eosinophils/100 leukocytes in Blood by Automated count 2 % [facility] Basophils/100 leukocytes in Blood by Automated count 1 % [facility] Neutrophils [#/volume] in Blood by Automated count 6.16 10*3/uL 1.8-7 .0 [facility] Lymphocytes [#/volume] in Blood by Automated count 2.50 10*3/uL 1.2-4 .0 [facility] Monocytes [#/volume] in Blood by Automated count 0.55 10*3/uL 0-0.8 [facility] Eosinophils [#/volume] in Blood by Automated count 0.14 10*3/uL 0-0.5 [facility] Basophils [#/volume] in Blood by Automated count 0.09 10*3/uL 0-0.2 [facility] Nucleated erythrocytes/100 leukocytes [Ratio] in Blood by Automated count 0 /100{WBCs} 0-0 [facility] ID Date Data Source [id number] 01/03/2020 06:12:44 PM [facility] NegativeNo interferon-gamma response to M.tuberculosisantigens was detected. Infection withM. tuberculosis is unlikely. A single negativeresult does not exclude infection with M. TB.In patients at high risk for M. tuberculosisinfection, a 2nd test should be consideredin accordance with [id number] ATS/IDSA/CDC Clinical Practice Guidelinesfor Diagnosis of Tuberculosis in Adults andChildren [Lewinsohn LIEN et. al. Clin Infec.Ptt6043 64(2):111-115] Name Value Range Interpretation Code Description Data Glenda rce(s) Supporting Document(s) Erythrocyte sedimentation rate 30 mm/hr <30 H [facility] ID Date Data Source [id number] 01/03/2020 06:27:10 PM [facility] NegativeNo interferon-gamma response to M.tuberculosisantigens was detected. Infection withM. tuberculosis is unlikely. A single negativeresult does not exclude infection with M. TB.In patients at high risk for M. tuberculosisinfection, a 2nd test should be consideredin accordance with [id number] ATS/IDSA/CDC Clinical Practice Guidelinesfor Diagnosis of Tuberculosis in Adults andChildren [Lewinsohn LINE et. al. Clin Infec.[id number] 64(2):111-115] Name Value Range Interpretation Code Description Data Glenda rce(s) Supporting Document(s) Albumin [Mass/volume] in Serum or Plasma by Bromocresol green (BCG) dye binding method 3.9 g/dL 3.5[facility]5.2 [facility] Bilirubin.total [Mass/volume] in Serum or Plasma 1.1 mg/dL <1.2 [facility] Calcium [Mass/volume] in Serum or Plasma 8.9 mg/dL 8.6-10.0 [facility] Chloride [Moles/volume] in Serum or Plasma 104 mmol/L 98-107 [facility] Creatinine [Mass/volume] in Serum or Plasma 0.85 mg/dL 0.50-0.90 [facility] Glucose [Mass/volume] in Serum or Plasma 170 mg/dL 70-140 [facility] Alkaline phosphatase [Enzymatic activity/volume] in Serum or Plasma 225 U/L 35-104 [facility] Potassium [Moles/volume] in Serum or Plasma 4.0 mmol/L 3.4-5.1 [facility] Protein [Mass/volume] in Serum or Plasma 6.7 g/dL 6.4-8.3 [facility] Sodium [Moles/volume] in Serum or Plasma 141 mmol/L 136-145 [facility] Aspartate aminotransferase [Enzymatic activity/volume] in Serum or Plasma 95 U/L <32 [facility] Urea nitrogen [Mass/volume] in Serum or Plasma 13 mg/dL 6-20 [facility] Osmolality of Serum or Plasma by calculation 296 mosm/kg 275-300 [facility] Creatinine/Urea nitrogen [Mass Ratio] in Serum or Plasma 15 [facility] Bicarbonate [Moles/volume] in Serum 25 mmol/L 22-29 [facility] Alanine aminotransferase [Enzymatic activity/volume] in Seru m or Plasma 679 U/L <33 [facility] Anion gap 3 in Serum or Plasma 12 mmol/L 8-15 [facility] Glomerular filtration rate/1.73 sq M pre dicted among non-blacks [Volume Rate/Area] in Serum or Plasma by Creatinine-based formula (MDRD) 78 mL/min/1.73m2 >60 [facility] Glomerular filtration rate/1.73 sq M pre dicted among blacks [Volume Rate/Area] in Serum or Plasma by Creatinine-based formula (MDRD) >60 [facility] ID Date Data Source [id number] 01/05/2020 03:05:50 PM T [facility] NegativeNo interferon-gamma response to M.tuberculosisantigens was detected. Infection withM. tuberculosis is unlikely. A single negativeresult does not exclude infection with M. TB.In patients at high risk for M. tuberculosisinfection, a 2nd test should be consideredin accordance with [id number] ATS/IDSA/CDC Clinical Practice Guidelinesfor Diagnosis of Tuberculosis in Adults andChildren [Lewinspaolan DM et. al. Clin Infec.Quc5799 64(2):111-115] Name Value Range Interpretation Code Description Data Glenda rce(s) Supporting Document(s) Mycobacterium tuberculosis stimulated gamma interferon [Units/volume] in Blood 0.01 [IU]/mL [facility] 0.01 Mitogen stimulated gamma interferon [Units/volume] in Blood [facility] Gamma interferon background [Units/volume] in Blood by Immun oassay 0.03 [IU]/mL [facility] ID Date Data Source [id number] 01/04/2020 02:02:17 PM EDT [facility] Name Value Range Interpretation Code Description Data Glenda rce(s) Supporting Document(s) Nuclear Ab Pattern Homogenous [Titer] in Serum <80 [facility] Nuclear Ab pattern.speckled [Titer] in Serum <80 [facility] Nuclear Ab pattern.rim [Titer] in Serum <80 [facility] Nuclear Ab pattern.nucleolar [Titer] in Serum <80 [facility] ID Date Data Source [id number] 01/16/2020 08:19:00 AM EDT [facility] Name Value Range Interpretation Code Description Data Glenda rce(s) Supporting Document(s) BLOGS MANAGER Antibodies 0.0-0.9 [facility] Weems Antibodies 0.0-0.9 [facility] ID Date Data Source [id number] 01/16/2020 08:19:00 AM EDT [facility] Name Value Range Interpretation Code Description Data Glenda rce(s) Supporting Document(s) Anti-DNA (DS) Ab Qn 0-9 [facility] Negative <5 Equivocal 5 - 9 Positive >9 ID Date Data Source [id number] 01/30/2020 09:05:00 AM EDT [facility] Name Value Range Interpretation Code Description Data Glenda rce(s) Supporting Document(s) Specimen Source Urine [facility] Streptococcus pneumoniae Ag Negative Negative [facility] Body Fluid Culture, Sterile Not indicated. [facility] Organism ID Not indicated. [facility] Please Note: [facility] [employer] standar ds require a culture to beperformed on CSF specimens submitted for bacterial antigen testing.(CAP LELIA.[id number]) Urine specimens will not be cultured. ID Date Data Source [id number] 01/30/2020 09:05:00 AM EDT [facility] Name Value Range Interpretation Code Description Data Glenda rce(s) Supporting Document(s) L. pneumophila Serogp 1 Ur Ag Negative Negative [facility] Presumptive negative for L. pneumophila serogroup 1 antigen in urine,suggesting no recent or current infection. Legionnaires' diseasecannot be ruled out since other serogroups and species may also causedisease. ID Date Data Source [id number] 10/24/2019 12:24:[address] [facility] [address] [facility] Emergency Department [address] [place] [address] Phone #: ext- [phone] 10/24/2019 12:16 [id number] Sex: F : 1970 Age: 49yWEIGHT:111.5 kg (S) HEIGHT:64 inches (S) BMI:42.2ALLERGIES: Kiwi, LamoTRIgine, Ondansetron, OpiodCHIEF COMPLAINT: dyspnea, asthmaDIAGNOSIS: Pneumonia, HypoxemiaLAB ORDERSOrder Description Priority Entered Acknowledged [facility]edCL[facility] w Diff STAT 12:33 10/24/2019 12:33 Dena Dunbar Riccardo RN M.D.;CMP STAT 12:33 10/24/2019 12:33 Dena Dunbar Riccardo RN M.D.;Lipase STAT 12:33 10/24/2019 12:33 Dena Dunbar Riccardo RN M.D.;PT/PTT STAT 12:33 10/24/2019 12:33 Dena Dunbar Riccardo RN M.D.;Troponin-T STAT 12:33 10/24/2019 12:33 Dena Dunbar Riccardo RN M.D.;BNP STAT 12:33 10/24/2019 12:33 Dena Dunbar Riccardo RN M.D.;D-Dimer STAT 12:33 10/24/2019 12:33 Dena Dunbar Riccardo RN M.D.;Urinalysis (Clean STAT 13:16 10/24/2019 13:23 Maximo Hurley Riccardo R.N. M.D.;CORONAVIRUS STAT 14:23 10/24/2019 14:27 Fabienne HurleyVID-19 James Bar R.N., M.D.;DIAGNOSTIC STUDY ORDERSOrder Description Priority Entered Acknowledged InitialedChest 2 View STAT 12:33 10/24/2019 12:33 Dena Dunbar [address] [facility] Emergency Department [address] [place] [address] Phone #: ext- [phone] 10/24/2019 12:16 Patient: CLINTON HAN Sex: F : 1970 Age: 49y(Oxygen?(No)) James Bar RN, M.D.; Reason for Study: Shortness of BreathCT CTA CHEST STAT 13:16 10/24/2019 13:23 Berry Hurley(NONCOR) W CON Sasha James R.N.INC PP M.D.;(Oxygen?(No))(IV?(Yes)) Reason for Study: rt sided CP, SOB, high d-dimerMEDICATION/IV/DRIP/FLUID ORDERSOrder Description Priority Entered Acknowledged InitialedDuoNeb Neb Tx 3 12:43 10/24/2019 12:54 Berry HurleymL James Bar R.N. M.D.;Percocet PO 1 tab 13:47 10/24/2019 13:47 Berry Hurley(HIGH ALERT Berry Hurley R.N.; R.N.MEDICATION) Verbal order per; James Bar M.D.Rocephin 14:23 10/24/2019 15:53 Berry Hurley(1gm/50mL) IVPB Turrin, James R.N.1000 mg with M.D.;Dextrose 50 mlspike bag (D5W)Zithromax IVPB 500 14:23 10/24/2019 14:42 Berry Hurleymg X1 Dose: 500 Turrin, James R.N.mg with Dextrose M.D.;Intravenous 250 mL(NOW x1)Dexamethasone 14:23 10/24/2019 14:43 Berry HurleyIVP 10 mg Davidrin, James R.N. M.D.;GENERAL ORDERSOrder Description Priority Entered Acknowledged Ini tialedBlood Pressure 12:33 10/24/2019 12:51 Tiburcio Hurley Riccardo R.N. Aristeo;Motion Picture Operator 12:33 10/24/2019 12:51 Berry Hurley(continuous) James Bar R.N. MCelia;EKG 12:33 10/24/2019 12:51 Berry Hurley [address] [facility] Emergency Department [address] [place] [address] Phone #: ext- [phone] 10/24/2019 12:16 Patient: CLINTON HAN Sex: F : 1970 Age: 49y James Bar.N. MCelia;NPO 12:33 10/24/2019 12:51 Berry Hurley Riccardo R.N. MCelia;Obtain Old EKG 12:10/24/2019 12:51 Berry Hurley Riccardo R.N. MCelia;Obtain Old Records 12:33 10/24/2019 12:51 Berry Hurley Riccardo R.N. MCelia;Oxygen titrate to 12:33 10/24/2019 12:51 Berry Hurley92% James Bar.N. M.Hannah.;Pulse oximeter 12:33 10/24/2019 12:51 Berry Hurley(Continuous) James Bar.N. MConstanza.;Saline Lock 12:10/24/2019 13:23 Berry Hurley Riccardo R.N. M.D.;Vitals 12:33 10/24/2019 12:51 Berry Hurley, Kaykay Zarate.N. MCelia;Consult - 14:37 10/24/2019 14:43 Yari Hurleyspitalist James Bar R.N., M.D.;[Electronically signed by Berry Hurley R.N. (16:30 10/24/2019)][Electronically signed by James Bar M.D. (16:36 10/24/2019)][Electronically locked by Berry Hurley R.N. (16:30 10/24/2019)] Name Value Range Interpretation Code Description Data Glenda rce(s) Supporting Document(s) ID Date Data Source [id number] 10/24/2019 12:24:[address] [facility] [address] [facility] Emergency Department [address] [place] [address] Phone #: ext- [phone] 10/24/2019 12:16 Patient: [...] Empagliflozin Oral (25 mg), daily Ergocalciferol Oral (66792 unit), daily Exenatide Subcutaneous 2mcg, once a week Ferrous Sulfate Iron Oral (200 (65 Fe) mg) 1 tablet, 2x a day Lantus Subcutaneous 16 units, daily, at bedtime [address] [facility] Emergency Department [address] [place] [address] Phone #: ext- [phone] 10/24/2019 12:16 Patient: [...] Medication information:Not obtained. [address] [facility] Emergency Department [address] [place] [address] Phone #: ext- [phone] 10/24/2019 12:16 Patient: [...] rce(s) Supporting Document(s) ID Date Data Source [id number] 10/24/2019 12:24:[address] [facility] [address] [facility] Emergency Department [address] [place] [address] Phone #: ext- [phone] 10/24/2019 12:16 Patient: [...] POStart ROCEPHIN (1GM/50ML) [IVPB] Rocephin (1gm/50mL) IVPB 627294:53 10/24/2019 (CEFTRIAXONE SODIUM) mg with Dextrose 50 ml spike bagBerry Hurley R.N. Dose: 1 gm IVPB (D5W )---- Rate: 100 mL/hr over 30 minute(s)Stop Dispensed: 50 mL bag16:20 10/24/2019 Site: #1 right ACRBerry kilgore R.N.Start ZITHROMAX [IVPB] (AZITHROMYCIN) Zithromax IVPB 500 [...] rce(s) Supporting Document(s) ID Date Data Source [id number] 10/24/2019 12:24:[address] [facility] [address] [facility] Emergency Department [address] [place] [address] Phone #: ext- [phone] 10/24/2019 12:16 Patient: CLINTON HAN Sex: F : 1970 Age: 49yBronchopneumonia with hypoxemia.Hypoxia.(Electronically signed by James Bar M.D. 10/24/2019 16:36) Name Value Range Interpretation Code Description Data Glenda rce(s) Supporting Document(s) ID Date Data Source [id number] 10/24/2019 12:24:[address] [facility] 1 Clinical Report - Nurses [facility] Emergency Department [address] [place] [address] Phone #: ext- [phone] 10/24/2019 12:16 Patient: [...] week, did not get much sleep). 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 SEPSIS SCREEN: SIRS Screen negative. Sepsis Screen negative. No suspected or confirmed signs of infection present. --12:22 10/24/19 Berry Hurley R.N. 12:17 10/24/19. BP: 112/62. MAP: 78. HR: 115. RR: 25. O2 saturation: 94% on room air. Temp: 98.2 F (temporal). Pain level now: 8/10. Additional comments: pain is usually 6. --12:22 10/24/19 Xavi, Berry, R.N. Weight: 111.5 kg stated. Height/Length: 64 [...] Hurley R.N. 2 Clinical Report - Nurses [facility] Emergency Department [address] [place] [address] Phone #: ext- [phone] 10/24/2019 12:16 Patient: [...] 10/24/19 Berry Hurley R. N.Ergocalciferol Oral (Capsule 11978 unit), daily. --12:48 10/24/19 Berry Hurley R.N.AllergiesKiwi.LamoTRIgine.(rash) --12:29 10/24/19 Berry Hurley R.N.Opiod. --12:48 10/24/19 Berry Hurley R.N.Ondansetron. --12:48 10/24/19 Berry Hurley R.N.PROBLEMS:Compressed disc.Diabetes Mellitus.Degenerative Joint Disease.Acute Pain.Cellulitis.Back Pain.Spinal Injury.Neck Pain.PCOS.Gall bladder.Insulin resistance. 3 Clinical Report - Nurses [facility] Emergency Department [address] [place] [address] Phone #: ext- [phone] 10/24/2019 12:16 Patient: CLINTON HAN Sex: F : 1970 Age: 49yIrritable bowel syndrome (disorder).Intervertebral Disc Disease.Fibromyalgia.IBS.Lupus.Mild lupus with systemic tissue disease.Arthritis.DDD. --12:49 10/24/19 Berry Hurley R.N.ADDITIONAL SURGERIES:Gastric bypass.Hysterectomy (Partial).Partial hysterectomy.Right shoulder.Right Shoulder.Ajmes-en-Y gastrojejunostomy.Sinus.Sinus Surgery. --12:49 10/24/19 Berry Hurley R.N.HistoryPAST [...] factors identified. 4 Clinical Report - Nurses [facility] Emergency Department [address] [place] [address] Phone #: ext- [phone] 10/24/2019 12:16 Patient: CLINTON HAN Sex: F : 1970 Age: 49y SKIN INTEGRITY ASSESSMENT: Skin integrity risk assessment completed. No skin integrity risk identified. --12:22 10/24/19 Berry Hurley R.N. Interventions Identification band on patient. To treatment room. --12:10/24/19 Berry Hurley R.N.PHYSICAL ASSESSMENT GENERAL / NEURO [...] --12:26 10/24/19 Berry Hurley R.N.NURSING PROGRESS NOTES desizing machine operator head end and NIBP monitor placed on patient; monitor [...] Hurley R.N. 5 Clinical Report - Nurses [facility] Emergency Department [address] [place] [address] Phone #: ext- [phone] 10/24/2019 12:16 Patient: CLINTON HAN Sex: F : 1970 Age: 49yPatient transported to CT by wheelchair with transporter. --13:28 10/24/19 Berry [...] she normally takes, and is in pain, automobile service writer asked Dr. Gay the pt could have a percocet and he agreed). --13:46 10/24/19 Berry Hurley R.N.13:00 10/24/19. Patient waiting for evaluation and lab and radiology results. ( waiting on test results).--14:20 10/24/19 Berry Hurley R.N.14:00 10/24/19. BP: 99/62. MAP: 74. HR: 109. RR: 31. O2 saturation: 89%. Additional comments: 2 litersapplied and up to 93% Dr. Bar informed. --14:22 10/24/19 Berry Hurley R.N.14:15 10/24/19. BP: 98/63. MAP: 74. HR: 106. RR: 24. O2 saturation: 93% on nasal cannula at 2liters/minute. --14:22 10/24/19 Berry Hurley R.N.( covid 19 test administered and sent to lab after name and verified). --14:28 10/24/19 Berry Hurley R.N.13:24 10/24/2019 Duoneb Neb TX discontinued due to improvement in patient [...] IV flushed 6 Clinical Report - Nurses [facility] Emergency Department [address] [place] [address] Phone #: ext- [phone] 10/24/2019 12:16 [id number] Sex: F : 1970 Age: 49y thoroughly [...] Transported via 7 Clinical Report - Nurses [facility] Emergency Department [address] [place] [address] Phone #: ssu- [phone] 10/24/2019 12:16 Patient: CLINTON HAN Sex: F [...] F (oral). Pain level now: 09/27. --16:29 10/24/19 Berry Hurley R.N.Locked/Released at 10/24/2019 16:30 by Berry Hurley R.N. Name Value Range Interpretation Code Description Data Glenda rce(s) Supporting Document(s) ID Date Data Source [id number] 10/24/2019 12:24:[address] [facility] 1 Clinical Report - Physicians/Mid Levels [facility] Emergency Department [address] [place] [address] Phone #: ext- [phone] 10/24/2019 12:16 Patient: CLINTON HAN Sex: F [...] disease. 2 Clinical Report - Physicians/Mid Levels [facility] Emergency Department [address] [place] [address] Phone #: ext- [phone] 10/24/2019 12:16 Patient: CLINTON HAN Sex: F : 1970 Age: 49yArthritis.DDD.Chronic pain.Chronic Fatigue Syndrome [RuleOut].Additional Surgeries:Cholecystectomy.Gastric bypass.Hysterectomy.Partial hysterectomy.Right shoulder.Right Shoulder.James-en-Y gastrojejunostomy.Sinus Surgery.Medications:Ergocalciferol Oral (Capsule 47038 unit), daily.Cyanocobalamin Oral (Tablet 1000 mcg), daily.Empagliflozin [...] bedtime. 3 Clinical Report - Physicians/Mid Levels [facility] Emergency Department [address] [place] [address] Phone #: ext- [phone] 10/24/2019 12:16 Patient: CLINTON HAN [facility]#: [id number] Sex: F : 1970 Age: 49y Naloxone. [...] air. Temp: 98.2 F. Pain level now: 8/10. Have been reviewed. Tachycardic. Oxygen saturation normal. [...] Technique: 4 Clinical Report - Physicians/Mid Levels [facility] Emergency Department [address] [place] [address] Phone #: ext- [phone] 10/24/2019 12:16 Patient: CLINTON HAN Sex: F : 1970 Age: 49ypoor inspiration. The X-rays were interpreted by the radiologist. Interpretation time: 13:21 10/24/2019.Laboratory Tests: Laboratory tests have been ordered, with results reviewed and considered in themedical decision making process.Urinalysis: (WHITNEY: 10/24/2019 13:10) ( MsgRcvd 10/24/2019 14:13) Final results Test Result Flag [...] CON INC PP: (WHITNEY: 10/24/2019 13:16) ( MsgRcvd 10/24/2019 13:47) InProgressCT CTA CHEST NON-CORONARY W CON INC PPReason(s): rt sided CP, SOB, high d-dimerTRANSPORTATION: WC IV? IV?(Yes) O2? Oxygen?(No) RoCBC w Diff: (WHITNEY: 10/24/2019 12:40) ( MsgRcvd 10/24/2019 12:59) Final results Test Result Flag [...] 3.40) 5 Clinical Report - Physicians/Mid Levels [facility] Emergency Department [address] [place] [address] Phone #: ext- [phone] 10/24/2019 12:16 Patient: [...] Male GFR Interprentation 20-49 yrs >60 mL/min Irpcep44-05 yrs >56 mL/min Normal 60-69 yrs >49 mL/min Normal 70-79yrs>42 mL/min Normal 80 and above >35 mL/min Normal Female GFRInterpretation 20-39 yrs >60 mL/min Normal 40-49 yrs >58 mL/minNormal 50-59 yrs >51 mL/min Normal 60-69 yrs >45 mL/min Ylwszt62-57 yrs >39 mL/min Normal 80 and above >32 mL/min NormalLipase: (WHITNEY: 10/24/2019 12:40) ( [facility] 10/[facility] 13:25) Final results Test Result Flag Units (Reference) LIPASE 24 U/L (13 - 60)PT/PTT: (WHITNEY: 10/24/2019 12:40) ( [facility] 10/24/2019 13:03) Final results Test Result Flag Units (Reference) PROTIME 11.8 SECONDS (11.0 - 15.5) INR 0.86 L (0.93 - 1.23) PTT 21.7 L SECONDS (24.8 - 36.7) \\BLDo\\INR INTERPRETATION\\BLDx\\ Therapeutic range for Coumadin andrelated oral anticoagulants. -International Normalized Ratio (INR): 2.0 - 3.0 for VenousThrombosis, Pulmonary Embolus, Tissue heart valves, Acute CO Atrial Fibrillation, Valvular heart diseaseand recurrent Systemic Embolism. -International Normalized Ratio (INR): 2.5 - 3.5 forMechanical Prosthetic valve.Troponin-T: (WHITNEY: 10/24/2019 12:40) ( [facility] 10/24/2019 13:26) Final results 6 Clinical Report - Physicians/Mid Levels [facility] Emergency Department [address] [place] [address] Phone #: ext- [phone] 10/24/2019 12:16 Patient: CLINTON HAN Sex: F : 1970 Age: 49y Test Result Flag Units (Reference) TROPONIN T <0.01 NG/ML (0.00 - 0.10) TROPONIN T0.1 ng/ml Recommended as the clinical threshold value forTroponin T. BNP: (WHITNEY: 10/24/2019 12:40) ( [facility] 10/24/2019 13:25) Final results Test Result Flag Units (Reference) BNP 171 H PG/ML (0 - 125) D-Dimer: (WHITNEY: 10/24/2019 12:40) ( [facility] 10/24/2019 13:07) Final results Test Result Flag Units (Reference) D-DIMER QUANT 0.97 H ug/mL (0.27 - 0.50) EKG: (WHITNEY: 10/24/2019 12:33) ( [facility] 10/24/2019 14:26) In Progress Chest 2 View: (WHITNEY: 10/24/2019 12:33) ( [facility] 10/24/2019 12:51) In Progress CHEST 2 VIEWS [...] and Decadron IV; case discussed w Janice Ashleigh-Falangia, ELEMENTARY VOCAL MUSIC TEACHER hospitalist, will admit 14:31 10/24/19. pt feeling [...] hypoxemia. 7 Clinical Report - Physicians/Mid Levels [facility] Emergency Department [address] [place] [address] Phone #: ext- [phone] 10/24/2019 12:16 [id number] Sex: F : 1970 Age: 49y Hypoxia.(Electronically signed by James Bar M.D. 10/24/2019 16:36) Name Value Range Interpretation Code Description Data Glenda rce(s) Supporting Document(s) ID Date Data Source [id number] 10/24/2019 12:24:[address] [facility] Addenda for CLINTON HAN VisitID: [id number] Date: 16:34Med Rec request faxed to [employer] with t-system overview @ 1459T-sysytem overview faxed to [facility] @ 1508Metformin discharge insturctions faxed to [employer] @ [phone](Electronically signed by Samuel Warner - 10/24/2019 16:34)11/04/2019 14:22pt was tested for covid-19 in [facility] not ED. Pt called to day for test results she stated that she was supposeto be called with results, community health representative looked up results and Mello RN told [...] rce(s) Supporting Document(s) ID Date Data Source [id number] 10/26/2019 07:13:[address] [facility] Name Value Range Interpretation Code Description Data Glenda rce(s) Supporting Document(s) BASIC METABOLIC PANEL [facility] BASIC METABOLIC PANEL Sodium [Moles/volume] in Serum or Plasma 141 mEq/L 134 - 153 [facility] Potassium [Moles/volume] in Serum or Plasma 4.5 mEq/L 3.6 - 5.0 [facility] Chloride [Moles/volume] in Serum or Plasma 107 mEq/L 98 - 107 [facility] Carbon dioxide, total [Moles/volume] in Serum or Plasma 26 MEQ/L 22 - 30 [facility] Glucose [Mass/volume] in Serum or Plasma 231 MG/DL 65 - [address] [facility] 20 [facility] Creat[facility] [Mass/volume] in Serum or Plasma 0.6 MG/DL 0.7 - 1.[address] [facility] BUN/CREAT 33 8 - [address] [facility] al Calcium [Mass/volume] in Serum or Plasma 9.0 MG/DL 8.4 - 10.2 [facility] Anion gap 3 in Serum or Plasma 8.0 mmol/L 8.0 - 16.0 [facility] AGE 49 [facility] AMER GFR >60 mL/min [facility] Ho spital NON-AA GFR >60 mL/min [facility] Hosp ital Male GFR Inter prentation 20-49 yrs [...] >32 mL/min Normal ID Date Data Source [id number] 10/26/2019 06:54:[address] [facility] Name Value Range Interpretation Code Description Data Glenda rce(s) Supporting Document(s) CBC W/AUTOMATED DIFF [facility] COMPLETE BLOOD COUNT Leukocytes [#/volume] in Blood by Automated count 13.0 10^3/uL 4.2 - 11.[address] [facility] Erythrocytes [#/volume] in Blood by Automated count 4.09 10^6/uL 4. 20 - 5.[address] [facility] Hemoglobin [Mass/volume] in Blood 13.2 g/dL 12.0 - 16.0 [facility] Hematocrit [Volume Fraction] of Blood by Automated count 40.0 % 3 7.0 - 47.0 [facility] Erythrocyte mean corpuscular volume [Entitic volume] by Auto mated count 97.8 fL 81.0 - 101 [facility] Erythrocyte mean corpuscular hemoglobin [Entitic mass] by Automated count 32.3 pg 27.0 - 34.0 [facility] Erythrocyte mean corpuscular hemoglobin concentration [Mass/volume] by Automated count 33.0 g/dL 31.0 - 36.0 [facility] Erythrocyte distribution width [Ratio] by Automated count 12.0 % 11.5 - 14.5 [facility] Platelets [#/volume] in Blood by Automated count 241 10^3/uL 150 - [address] [facility] Platelet mean volume [Entitic volume] in Blood by Automated count 10.4 fL 7.4 - 10.4 [facility] Neutrophils/100 leukocytes in Blood by Automated count 83.9 % 37. 0 - 80.[address] [facility] Lymphocytes/100 leukocytes in Blood by Manual count 10.0 % 25.0 - 40.[address] [facility] Monocytes/100 leukocytes in Blood by Automated count 4.4 % 3.0 - 8.0 [facility] Eosinophils/100 leukocytes in Blood by Automated count 0.0 % 0.0 - 7.0 [facility] Basophils/100 leukocytes in Blood by Automated count 0.2 % 0.0 - 2.5 [facility] %IG 1.5 % 0.0 - 0.0 H [facility] al %NRBC 0.0 % 0.0 - 0.0 [facility] Neutrophils [#/volume] in Blood by Automated count 10.93 10^3/uL 2. 00 - 6.[address] [facility] Lymphocytes [#/volume] in Blood by Automated count 1.30 10^3/uL 0.60 - 3.40 [facility] Monocytes [#/volume] in Blood by Automated count 0.57 10^3/uL 0.00 - 0.90 [facility] Eosinophils [#/volume] in Blood by Automated count 0.00 10^3/uL 0.00 - 0.70 [facility] Basophils [#/volume] in Blood by Automated count 0.03 10^3/uL 0.00 - 0.20 [facility] #IG 0.20 10^3/uL 0.00 - 0.10 [facility] #NRBC 0.00 10^3/uL 0.00 - 0.00 [facility] MANUAL DIFF NOT INDICATED [facility] RBC MORPH NOT INDICATED [facility] ID Date Data Source [id number] 10/25/2019 08:43:00 PM EDT [facility] [address] [place] [address] RESPIRATORY CARE REPORT ==== ---------NAME------- NUMBER SEX AGE ADMIT DISC. XRAY# F/C MAGDALENE Crawford [id number] F 49 10/24/19 [id number] SB4 O/P DATE OF : 1970 M/R# [id number] PH#: [phone] 117-1 LOCATION: [place] [id number] COMP LETE:10/24/19 14:22 EWW [id number] PHYSICIAN: ROXANNE MORRIS Name Value Range Interpretation Code Description Data Glenda rce(s) Supporting Document(s) ID Date Data Source [id number] 10/25/2019 12:10:00 PM EDT [address] [place] [address] PHONE: [phone] FAX: [phone] Name .................. : GUILLE Crawford Acct Number.................. : [id number] ROOM. ................. : 117-1 Number ................... : [id number] Stay type ............. : O/P Discharge Date......... ... : Admit Date ......... : 10/24/19 Admit Phys .................... : ROXANNE Date of ....... : 1970 Family Phys ................... : UNKNOWN Phone .................. : [phone] Age ................................ : 49 Film# .................. .:[id number] Sex ................................. : F Unsigned transcriptions are preliminary reports and do not represent a medical or legal document DOPPLER VENOUS BILAT LEG 15440 COMPLETE:10/24/19 15:04 02719 (REASON FOR PROCESS: ABNORMAL D-DIMER BILATERAL LOWER [...] By Octavio Chavez M.D. , 10/25/19 12:10, SESAR Transcribe Initials: DZ , Transcribe Date: 10/24/19 23:22, Dictation Date: Copy for: [facility] [place] via fax Copy for: EMERGENCY DEPT via modem Copy for: [address] [place] [address] REC Page 1 of 1 Name Value Range Interpretation Code Description Data Glenda rce(s) Supporting Document(s) ID Date Data Source [id number] 10/25/2019 11:59:00 [place] [address] PHONE: [phone] FAX: [phone] Name .................. : GUILLE Crawford Acct Number.................. : [id number] ROOM. ................. : 117-1 MR Number ................... : [id number] Stay type ............. : O/P Discharge Date......... ... : Admit Date ......... : 10/24/19 Admit Phys .................... : ROXANNE Date of ....... : 1970 Family Phys ................... : UNKNOWN Phone .................. : [phone] Age ................................ : 49 Film# .................. .:[id number] Sex ................................. : F Unsigned transcriptions are preliminary reports and do not represent a medical or legal document CT CTA CHEST NON-CORONARY W 87708 COMPLETE:10/24/19 13:46 [facility] [address] Reason(s): rt sided CP, SOB, high d-dimer [...] of administration: Intravenous Page 1 of 2 [facility] [address] [place] [address] PHONE: [phone] FAX: [phone] Name .................. : GUILLE Crawford Acct Numb er.................. : [id number] ROOM. ................. : 117-1 MR Number ................... : [id number] Stay type ............. : O/P Discharge Date......... ... : Admit Date ......... : 10/24/19 Admit Phys .................... : ASHLEIGH-FALAN Date of ....... : 1970 Family Phys ................... : UNKNOWN Phone .................. : [phone] Age ................................ : 49 Film# .................. .:[id number] Sex ................................. : F Unsigned transcriptions are preliminary reports and do not represent a medical or legal document CT CTA CHEST NON-CORONARY W C 94714 COMPLETE:10/24/19 13:46 [facility] [place] [address] Reason(s): rt sided CP, SOB, high d-dimer Electronically Reviewed and Signed By Octavio Chavez M.D. , 10/25/19 11:59, [place] Transcribe Initials: NIRAV , Transcribe Date: 10/24/19 15:49, Dictation Date: Copy for: EMERGENCY DEPT via modem Copy for: 710 MED REC Page 2 of 2 Name Value Range Interpretation Code Description Data Glenda rce(s) Supporting Document(s) ID Date Data Source [id number] 10/25/2019 11:35:00 AM EDT [facility] [address] [address] PHONE: [phone] FAX: [phone] Name .................. : GUILLE Crawford Acct Number.................. : [id number] ROOM. ................. : [facility] MR Number ................... : [id number] Stay type ............. : O/P Discharge Date......... ... : Admit Date ......... : 10/24/19 Admit Phys .................... : ASHLEIGHDAVE Date of ....... : 1970 Family Phys ................... : UNKNOWN Phone .......... ........ : [phone] Age ................................ : 49 Film# .................. .:[id number] Sex ................................. : F Unsigned transcriptions are preliminary reports and do not represent a medical or legal document CHEST 2 VIEWS 99090 COMPLETE:10/24/19 12:51 ARS 33996 Reason(s): Shortness of Breath CHEST X-RAY: PA [...] MD , 10/25/19 11:35, TDS Transcribe Initials: DZ , Transcribe Date: 10/24/19 15:53, Dictation Date: Copy for: EMERGENCY DEPT via modem Copy for: 710 MED REC Page 1 of 1 Name Value Range Interpretation Code Description Data Glenda rce(s) Supporting Document(s) ID Date Data Source [id number] 10/25/2019 07:36:[address] [facility] Name Value Range Interpretation Code Description Data Glenda rce(s) Supporting Document(s) Magnesium [Mass/volume] in Serum or Plasma 2.3 MG/DL 1.7 - 2.[address] [facility] ID Date Data Source [id number] 10/25/2019 07:36:[address] [facility] Name Value Range Interpretation Code Description Data Glenda rce(s) Supporting Document(s) COMPREHENSIVE METABOLIC PANEL [facility] COMPREHENSIVE METABOLIC PANEL Sodium [Moles/volume] in Serum or Plasma 141 mEq/L 134 - 153 [facility] Potassium [Moles/volume] in Serum or Plasma 4.3 mEq/L 3.6 - 5.0 [facility] Chloride [Moles/volume] in Serum or Plasma 106 mEq/L 98 - 107 [facility] Carbon dioxide, total [Moles/volume] in Serum or Plasma 27 MEQ/L 22 - 30 [facility] Glucose [Mass/volume] in Serum or Plasma 179 MG/DL 65 - [address] [facility] BUN 15 MG/DL 7 - 21 [facility] Creatinine [Mass/volume] in Serum or Plasma 0.6 MG/DL 0.7 - 1.[address] [facility] B[facility]/CREAT 25 8 - [facility] [Mass/volume] in Serum or Plasma 5.7 G/DL 6.3 - 8.[address] [facility] Albumin [Mass/volume] in Serum or Plasma 3.8 G/DL 3.9 - 5.[address] [facility] Globulin [Mass/volume] in Serum by calculation 1.9 GM/DL 2.4 - 3.[address] [facility] A/G RATIO 2.0 0.8 - 2.0 [facility] Calcium [Mass/volume] in Serum or Plasma 8.8 MG/DL 8.4 - 10.2 [facility] Bilirubin.total [Mass/volume] in Serum or Plasma 0.8 MG/DL 0.2 - 1.3 [facility] Alkaline phosphatase [Enzymatic activity/volume] in Serum or Plasma 95 U/L 38 - 126 [facility] Aspartate aminotransferase [Enzymatic activity/volume] in Serum or Plasma 12 U/L 5 - 40 [facility] Alanine aminotransferase [Enzymatic activity/volume] in Seru m or Plasma 46 U/L 7 - 56 [facility] Anion gap 3 in Serum or Plasma 8.0 mmol/L 8.0 - 16.0 [facility] AGE [address] [facility] al NON-AA GFR >60 mL/min [facility] ital AFR AMER GFR >60 mL/min [facility] Male GFR In terprentation 20-49 [...] >32 mL/min Normal ID Date Data Source [id number] 10/25/2019 07:13:[address] [facility] Name Value Range Interpretation Code Description Data Glenda rce(s) Supporting Document(s) CBC W/AUTOMATED DIFF [facility] COMPLETE BLOOD COUNT Leukocytes [#/volume] in Blood by Automated count 15.0 10^3/uL 4.2 - 11.[address] [facility] Erythrocytes [#/volume] in Blood by Automated count 4.11 10^6/uL 4. 20 - 5.[address] [facility] Hemoglobin [Mass/volume] in Blood 13.2 g/dL 12.0 - 16.0 [facility] Hematocrit [Volume Fraction] of Blood by Automated count 39.9 % 3 7.0 - 47.0 [facility] Erythrocyte mean corpuscular volume [Entitic volume] by Auto mated count 97.1 fL 81.0 - 101 [facility] Erythrocyte mean corpuscular hemoglobin [Entitic mass] by Automated count 32.1 pg 27.0 - 34.0 [facility] Erythrocyte mean corpuscular hemoglobin concentration [Mass/volume] by Automated count 33.1 g/dL 31.0 - 36.0 [facility] Erythrocyte distribution width [Ratio] by Automated count 12.0 % 11.5 - 14.5 [facility] Platelets [#/volume] in Blood by Automated count 241 10^3/uL 150 - [address] [facility] Platelet mean volume [Entitic volume] in Blood by Automated count 9.9 fL 7.4 - 10.4 [facility] Neutrophils/100 leukocytes in Blood by Automated count 84.3 % 37. 0 - 80.[address] [facility] Lymphocytes/100 leukocytes in Blood by Manual count 9.5 % 25.0 - 40.[address] [facility] Monocytes/100 leukocytes in Blood by Automated count 5.5 % 3.0 - 8.0 [facility] Eosinophils/100 leukocytes in Blood by Automated count 0.0 % 0.0 - 7.0 [facility] Basophils/100 leukocytes in Blood by Automated count 0.2 % 0.0 - 2.5 [facility] %IG 0.5 % 0.0 - 0.0 [facility] %NRBC 0.0 % 0.0 - 0.0 [facility] al Neutrophils [#/volume] in Blood by Automated count 12.62 10^3/uL 2. 00 - 6.[address] [facility] Lymphocytes [#/volume] in Blood by Automated count 1.43 10^3/uL 0.60 - 3.40 [facility] Monocytes [#/volume] in Blood by Automated count 0.83 10^3/uL 0.00 - 0.90 [facility] Eosinophils [#/volume] in Blood by Automated count 0.00 10^3/uL 0.00 - 0.70 [facility] Basophils [#/volume] in Blood by Automated count 0.03 10^3/uL 0.00 - 0.20 [facility] #IG 0.08 10^3/uL 0.00 - 0.10 [facility] #NRBC 0.00 10^3/uL 0.00 - 0.00 [facility] ospital MANUAL DIFF NOT INDICATED [facility] RBC MORPH NOT INDICATED [facility] ID Date Data Source [id number] 10/25/2019 01:27:[address] [facility] Name Value Range Interpretation Code Description Data Glenda rce(s) Supporting Document(s) TROPONIN T <0.01 NG/ML 0.00 - 0.10 [facility] ospital TROPONIN T0.1 ng/ml Recommended as the c linical threshold value forTroponin T. ID Date Data Source [id number] 10/24/2019 06:53:[address] [facility] Name Value Range Interpretation Code Description Data Glenda rce(s) Supporting Document(s) TROPONIN T <0.01 NG/ML 0.00 - 0.10 [facility] ospital TROPONIN T0.1 ng/ml Recommended as the c linical threshold value forTroponin T. ID Date Data Source [id number] 11/04/2019 06:51:[address] [facility] Name Value Range Interpretation Code Description Data Glenda rce(s) Supporting Document(s) SARS-CoV-2, NAOMI Not Detected Not Detected [facility] Testing was performed using the kody(R) SARS-CoV-2 test.This test was developed and its performance characteristics determinedby [employer]. This test has not been FDA cleared [...] in this assay. ID Date Data Source [id number] 10/24/2019 02:26:00 PM EDT [facility] Name Value Range Interpretation Code Description Data Glenda rce(s) Supporting Document(s) SARS coronavirus 2 RNA [facility] This lab was ordered by [facility] amisha and reported by [facility]. ID Date Data Source [id number] 10/28/2019 03:12:[address] [facility] Name Value Range Interpretation Code Description Data Glenda rce(s) Supporting Document(s) CULTURE URINE [facility] _CULTURE URINE_$$[id number]$$[id number]$$[id number]$$[id number]$$[id number]$$[id number]$$272676$$716038$$832291$$ 164509$$862627$$586189$$512730$$343344$$012050$$838272$$933283$$657608$$798918$$ 495925$$925667$$942080$$818234$$537744$$015116$$628561$$423970 -- Continued on next page --Patient: GUILLE Crawford Order: [id number] Page 2Culture: CULTURE URINE Status: Final ==== -- Continued on next page --Patient: GUILLE Crawford Order: [id number] Page 2Culture: CULTURE URINE Status: Prelim =====$$[id number]$$[id number] DATE/TIME: 10/28/2019 12:07Culture: CULTURE URINE Status: FinalUrine Culture,Comprehensive: [id number] urogenital flora10,000-25,000 colony forming units per mL Previous result entered on 10/27/2019 03:54 ET Specimen has been received and testing has been initiated.P1 Test performed by: [facility] #: [id number] [address] [place] [id number] [facility] [address]Oqedvcr Director : Julito Valero MD NPI #: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 Name Value Range Interpretation Code Description Data Glenda rce(s) Supporting Document(s) URINALYSIS [facility]athy URINALYSIS SOURCE R [facility] COLOR yellow NORMAL: Yellow [facility] CLARITY clear NORMAL: Clear [facility] Specific gravity of Urine by Test strip 1.015 1.001 - 1.030 [facility] pH 5 5 - 9 [facility] Glucose [Mass/volume] in Urine by Test strip 1000 NORMAL: Negat lexus A [facility] Bilirubin.total [Presence] in Urine by Test strip NEG NORMAL: Negative [facility] Ketones [Presence] in Urine by Test strip NEG NORMAL: Negative [facility] Protein [Mass/volume] in Urine by Test strip NEG NORMAL: Negat lexus [facility] Nitrite [Presence] in Urine by Test strip NEG NORMAL: Negative [facility] BLOOD NEG NORMAL: Negative [facility] Leukocyte esterase [Presence] in Urine by Test strip 100 NICOLA L: Negative A [facility] Urobilinogen [Mass/volume] in Urine by Test strip NOR less yang n 1.0 mg/dL [facility] MICROSCOPIC See Below [facility] ital WBC 7 - 10 NORMAL: NONE SEEN A [facility] Erythrocytes [#/volume] in Urine by Test strip 1 - 3 NORMAL: NON E SEEN [facility] EPITHELIAL MODERATE NORMAL: NONE SEEN A [facility] Bacteria [Presence] in Urine sediment by Light microscopy 1+ SMALL NORMAL: NONE SEEN [facility] ID Date Data Source [id number] 10/24/2019 01:26:[address] [facility] Name Value Range Interpretation Code Description Data Glenda rce(s) Supporting Document(s) TROPONIN T <0.01 NG/ML 0.00 - 0.10 [facility] ospital TROPONIN T0.1 ng/ml Recommended as the c linical threshold value forTroponin T. ID Date Data Source [id number] 10/24/2019 01:25:[address] [facility] Name Value Range Interpretation Code Description Data Glenda rce(s) Supporting Document(s) Lipase [Enzymatic activity/volume] in Serum or Plasma 24 U/L 13 - 60 [facility] ID Date Data Source [id number] 10/24/2019 01:25:[address] [facility] Name Value Range Interpretation Code Description Data Glenda rce(s) Supporting Document(s) COMPREHENSIVE METABOLIC PANEL [facility] COMPREHENSIVE METABOLIC PANEL Sodium [Moles/volume] in Serum or Plasma 139 mEq/L 134 - 153 [facility] Potassium [Moles/volume] in Serum or Plasma 4.3 mEq/L 3.6 - 5.0 [facility] Chloride [Moles/volume] in Serum or Plasma 102 mEq/L 98 - 107 [facility] Carbon dioxide, total [Moles/volume] in Serum or Plasma 25 MEQ/L 22 - 30 [facility] Glucose [Mass/volume] in Serum or Plasma 299 MG/DL 65 - [address] [facility] BUN 13 MG/DL 7 - 21 [facility] Creatinine [Mass/volume] in Serum or Plasma 0.8 MG/DL 0.7 - 1.5 [facility] BUN/CREAT 16 8 - 27 [facility] al Protein [Mass/volume] in Serum or Plasma 5.9 G/DL 6.3 - 8.[address] [facility] Albumin [Mass/volume] in Serum or Plasma 3.7 G/DL 3.9 - 5.[address] [facility] Globulin [Mass/volume] in Serum by calculation 2.2 GM/DL 2.4 - 3.[address] [facility] A/G RATIO 1.7 0.8 - 2.0 [facility] Calcium [Mass/volume] in Serum or Plasma 8.9 MG/DL 8.4 - 10.2 [facility] Bilirubin.total [Mass/volume] in Serum or Plasma 1.1 MG/DL 0.2 - 1.3 [facility] Alkaline phosphatase [Enzymatic activity/volume] in Serum or Plasma 106 U/L 38 - 126 [facility] Aspartate aminotransferase [Enzymatic activity/volume] in Serum or Plasma 28 U/L 5 - 40 [facility] Alanine aminotransferase [Enzymatic activity/volume] in Seru m or Plasma 63 U/L 7 - [address] [facility] Anion gap 3 in Serum or Plasma 12.0 mmol/L 8.0 - 16.0 [facility] AGE 49 yrs [facility] NON-AA GFR >60 mL/min [facility] ital AFR AMER GFR >60 mL/min [facility] Male GFR In terprentation 20-49 [...] >32 mL/min Normal ID Date Data Source [id number] 10/24/2019 01:25:[address] [facility] Name Value Range Interpretation Code Description Data Glenda rce(s) Supporting Document(s) BNP 171 PG/ML 0 - 125 H [facility] ID Date Data Source [id number] 10/24/2019 01:07:[address] [facility] Name Value Range Interpretation Code Description Data Glenda rce(s) Supporting Document(s) Fibrin D-dimer FEU [Mass/volume] in Platelet poor plasma 0.97 ug /mL 0.27 - 0.[address] [facility] ID Date Data Source [id number] 10/24/2019 01:03:[address] [facility] Name Value Range Interpretation Code Description Data Glenda rce(s) Supporting Document(s) Prothrombin time (PT) 11.8 SECONDS 11.0 - 15.5 [facility] INR in Platelet poor plasma by Coagulation assay 0.86 0.93 - 1. [address] [facility] aPTT in Blood by Coagulation assay 21.7 SECONDS 24.8 - 36.[address] [facility] \\BLDo\\INR INTERPRETATION\\BLDx\\ Therapeutic range for Coumadin and related oral anticoagulants. - International Normalized Ratio (INR): 2.0 - 3.0 for Venous Thrombosis, Pulmonary Embolus, Tissue heart valves, Acute CO Atrial Fibrillation, Valvular heart disease and recurrent Systemic Embolism. - International Normalized Ratio (INR): 2.5 - 3.5 for Mechanical Prosthetic valve. ID Date Data Source [id number] 10/24/2019 12:59:[address] [facility] Name Value Range Interpretation Code Description Data [facility] Supporting Document(s) CBC W/AUTOMATED DIFF [facility] COMPLETE BLOOD COUNT Leukocytes [#/volume] in Blood by Automated count 11.8 10^3/uL 4.2 - 11.[address] [facility] Erythrocytes [#/volume] in Blood by Automated count 4.72 10^6/uL 4. 20 - 5.40 [facility] Hemoglobin [Mass/volume] in Blood 15.1 g/dL 12.0 - 16.0 [facility] Hematocrit [Volume Fraction] of Blood by Automated count 46.4 % 3 7.0 - 47.0 [facility] Erythrocyte mean corpuscular volume [Entitic volume] by Auto mated count 98.3 fL 81.0 - 101 [facility] Erythrocyte mean corpuscular hemoglobin [Entitic mass] by Automated count 32.0 pg 27.0 - 34.0 [facility] Erythrocyte mean corpuscular hemoglobin concentration [Mass/volume] by Automated count 32.5 g/dL 31.0 - 36.0 [facility] Erythrocyte distribution width [Ratio] by Automated count 11.9 % 11.5 - 14.5 [facility] Platelets [#/volume] in Blood by Automated count 303 10^3/uL 150 - [address] [facility] Platelet mean volume [Entitic volume] in Blood by Automated count 9.6 fL 7.4 - 10.4 [facility] Neutrophils/100 leukocytes in Blood by Automated count 76.1 % 37. 0 - 80.0 [facility] Lymphocytes/100 leukocytes in Blood by Manual count 13.0 % 25.0 - 40.[address] [facility] Monocytes/100 leukocytes in Blood by Automated count 7.6 % 3.0 - 8.0 [facility] Eosinophils/100 leukocytes in Blood by Automated count 1.6 % 0.0 - 7.0 [facility] Basophils/100 leukocytes in Blood by Automated count 0.8 % 0.0 - 2.5 [facility] %IG 0.9 % 0.0 - 0.0 [facility] %NRBC 0.0 % 0.0 - 0.0 [facility] al Neutrophils [#/volume] in Blood by Automated count 8.98 10^3/uL 2.00 - 6.[address] [facility] Lymphocytes [#/volume] in Blood by Automated count 1.54 10^3/uL 0.60 - 3.40 [facility] Monocytes [#/volume] in Blood by Automated count 0.90 10^3/uL 0.00 - 0.90 [facility] Eosinophils [#/volume] in Blood by Automated count 0.19 10^3/uL 0.00 - 0.70 [facility] Basophils [#/volume] in Blood by Automated count 0.09 10^3/uL 0.00 - 0.20 [facility] #IG 0.11 10^3/uL 0.00 - 0.10 H [facility] ospital #NRBC 0.00 10^3/uL 0.00 - 0.00 [facility] o[facility] MANUAL DIFF NOT INDICATED [facility] RBC MORPH NOT INDICATED [facility] ID Date Data Source [id number] 10/24/2019 05:10:[address] [facility] Name Value Range Interpretation Code Description Data Glenda rce(s) Supporting Document(s) Hemoglobin A1c/Hemoglobin.total in Blood 10.0 % 4.4 - 6.[address] [facility] {A1]{HB] ID Date Data Source [id number] 07/20/2019 07:32:15 PM EDT [facility] Name Value Range Interpretation Code Description Data Glenda rce(s) Supporting Document(s) Progress Note [facility] CDEPDt6zOtOXKbWh52/ZHVkoBABsh7OwZQjrUHy9SMyhHFImL3OjOOU4tD5dIQH5EHpHWpAmIfZvYQKz lbm [file] AgICAgICAgICAgICAgICAgICAgICAgICAgICAgICAgICAgICAgICAgICAgICAgICAgICAgICAgICAgIC GmSRJaDPXnJDYiOBMrKO3HISStKZWaXRNgYDLeSRMk ICAgICAgICAgICAgICAgICAgICAgICAgICAgICAgICAgICAgICAgICAgICAgICAgICAgICAgICAgICAg BLDuOPFgDLOaLIZaFNPrQSTqIGZkSOHzVR8KKZWiJQPpRGVoJHIuYZJhFOMkBPIwILQdUHToJFOtYIRp ICAgICAgICAgICAgICAgICAgICAgICAgICAgICAgIC AwGEKcFCPhVFGpMVVjPTFoBOZrSRFrQIFnCJNaFTTdHWYmPU6EVSJbRXOvTUBjBOJsWOVxDPEiSEIqIC AgICAgICAgICAgICAgICAgICAgICAgICAgICAgICAgICAgICAgICAgICAgICAgICAgICAgICAgICAgIC ApKLTdSXBeBPOhMYMkTCDtMP0CABMpJNZjGVIjURDs ICAgICAgICAgICAgICAgICAgICAgICAgICAgICAgICAgICAgICAgICAgICAgICAgICAgICAgICAgICAg VSLxQWMnQJPdFZZvKNEyLRWpANJbEOBeRBUmSJ3CHGIvHSJoZXCqEMSyEMLqOHWtYHBqJXFjUXAnQJFq ICAgICAgICAgICAgICAgICAgICAgICAgICAgICAgIC PpRRKiCQSgHBDaBEBcZOEwFWCqWIJxSLGsTZWqGDPkSYYvRCFcBC3INWLrSXCoFOIhOHVkSPMnFZCtQJ AgICAgICAgICAgICAgICAgICAgICAgICAgICAgICAgICAgICAgICAgICAgICAgICAgICAgICAgICAgIC UyYCBvUFNmJCUuHRDzAHFbRGTxPJ4WGDKyWBObHPTc ICAgICAgICAgICAgICAgICAgICAgICAgICAgICAgICAgICAgICAgICAgICAgICAgICAgICAgICAgICAg MZDmNIMzECQzLSAiLLWdBDZzTZQaXNOjWOQuZYYeIA6JGCRxXOEiILGsQHQvRHByDYRpEFZiIOMfXHZu ICAgICAgICAgICAgICAgICAgICAgICAgICAgICAgIC NrXLWpIDAfLLLaOQPpQYHmUGPbGCLpIAJoPHQpJNReXPMkYWYtRRTbSK7YTZEbHAMlXAIlCMZbKXXuUY AgICAgICAgICAgICAgICAgICAgICAgICAgICAgICAgICAgICAgICAgICAgICAgICAgICAgICAgICAgIC TbRLPsOQExMOBdNOYiBOCjLNZwCTFrSJ9GWC65sRYy n9G0WFJxDH8bgpg/Jk1FTFapojNltIMyVK6HBjUqWB8nuv9UDsLcVU0hnp4FPHuUZgIpY7W3aQGuMFOo WCOPHbZyG98mUByqGq71GFrnSQFgDhUhMAe4Gs1QIwJbA5xeHLVzCsY0QFKlUgX8GJKaTsO9RJMdJiYb RRWyNFTzAFDcXPNFMIH1TZZsQcDaIxSzYHNiYVfqYG MHVH0TRlEgS7YjpL33PKfBBx3+MDfukzUfRdaFRnY2XVTlj7SuXGf0XR9NZSVmCxnkh2LqCBYiOFMLIE qzAU8ISEB9KFYyZIVfVh8XMZJlV624ptKvLY4VYb0DHeBjYD1wuy3OEQZgLFKkHimQIxm6AZhrOT1IqV NzKIeRfl8mtiQmtmXUl5LvolAroUKQoGQwK6qlsqhi RNLxCN2LEPR8DAGiTuQnBrFhWBLsDTbvCUTTLFuFCbLsD7Pzv5QeZsA3ZGPuGtDlKAgjDOXxScQ9RR95 wQiqPT9NMRTaTZPnJW39RFZ7KNYqMs1YNm0KGjIfEN9srh5FFDRcSUJxTyyVCen1LAubSJ8RvVMkF1Rx pPOud6tFCtEiE9MHSNR1PKHmMu9PHQJdMgFjCWPcHP mcQI5vTMPpVPZSeTzxuxZ0PD2YVC4ydjQzNQ6MFmXzVz4mHc2WYyNlH3ReG2DqCZCbDTVGZEpzNW6RUG uaLU1wMK8Ez6UWuCGopH1zto5XHIDmHYCaHnszpb2SWewaX9O7tUdfVXExLguuQNPXHApkMJ6AJPXkVQ V8NJEkVCPbSWDDOqOnF75oXQ7XH3Sba32lPhA2FLMe KfNpRCmiXA68vWnlqsTdsMErmTfwFP6XAp4+DQplbmRvYmoNCnhyZWYNCjAgNDINCjAwMDAwMDAwMDAg MvD0VvEbKx6QGBNzFBLyKOQaZzOoSYTtJKHsLKodAWRtISB7NCEqTLWsTWOmFC3SLaEuWDXwPVezUILy PSLqTNJmgh4JQPOwKSXiAUC1EsXfLGLiUVWbNHfzNY EyISO8SHHwHEPbTSTrTB0ATrLpYJYmMMBoLExtXWOlEGNwmv8EBNWrZIWsUQA5MeLmXSRqMVBxRVheGF StEBE8TXF3DCKfTZQlGS6ZDhLeHSCsMNHpPIChGYQhSZOvme2CMLKrWIBcWzC0VKVeJDChMZVoYHktPS GxBHF5OKK4DSJtQDYeYJ1XJhCfIVYoRIUtXIDoYLFg XXPrjb3WWPCcGPQyOZZpFPGtGBLfYHHgLUbwVTRcFCJ8RjT5DFQdZVWjPM2QWaZrFXHuJuF2UjbmDORv JFKqxc1KPVNxSKAbDdb8BYCyQBQvMAKpUZdjAJSlJEH1YIB4CCXqWRDaVA1IQxQaVWXpKfIrLjWbLEIq OJRghv9EYDEjJKDeCoB9QVEfVUNpNJZvTNhiZDNpAC I9OBQeYJCnUDChTR7NRpShBWWpNpj9KgCpDUMlQEKzqn7HRPKvKAMvAMIbCuBmIMKuGFFpPIruFEDrMB Q1OmHaLXYkALKpPA6PFxUyFDHrHhHbIXvtRJCuUSOmwp6LZYAbSZVlVUR9UPAeNOZsAUTtADjxYNArRM HgPPP3TOPbINEpVD6WOeWzNWOpPAA3BrqlTVXfAJYy xp8EHZLyFSH1DyWtDJLlXFIxKCFpVQmuZEYdMSVjCPOeZNSoZFHnDP9ZXiKmQDMwATY0IhJuTHZiYVOw vk8VUKFeABL8SvofAYUpDIBtPBGjFTvuMXBxFIVjTURlPUZlISYtXS1SShFxBYHwKLEnOYZlCPCuPGTu ac4PQFWoIZH4YVQyHUAfRTToCNAcJZlvQVYhKZW8RQ Z4GXAvTNAaCA6ZTdTjIVMqAQObLIPaDTBcRFUavg4AQRSnARS5BZTjOOAnTQKfOZAgEYmuYGDzRZS8IW V9INXjHPVsUF8DPhVqBTLwUWg4QTpiSSQeDGPkim1TNXImFNU9ZvRzQXLaSMOzUFJxOCymBBShBCV5Xm U2RWKxJIRkPZ0GTmVbGYfiHCQZOqu7IQqqJ8m5YVW5 Hy5CJ9Esu8KfONGnYKVFKPdaRE3cfrXaHRQmEg6ZU8uBPnmyXYQ9TOOvZGVbAsVtJMH8YWBvANB4NjJm YnP4NPAhPL9gVWQ5ZkgoIbShZVF5VpRxOVjnJpZcWihiTpXhYSHyWPT2XtIsPH2BYu1VEuD7QXL3xSJo Sz0OSSa1CXCAJnClMP8KHKo= ID Date Data Source GATS (NEGATIVE STREP SCREEN) 04/10/2019 12:00:00 AM EST eCW1 ([facility]) Name Value Range Interpretation Code Description Data Glenda rce(s) Supporting Document(s) FULL REPORT IN LAB NOTES (eCW and [facility]). GATS CULTURE (NEG STREP SCR) eCW1 ([facility]) Procedure Social History Code Duration Value Status Description Data Source(s ) Alcohol intake 01/03/2020 12:00:00 AM EDT Current non-d carisa of alcohol (finding) completed Current non-drinker of alcohol (finding) [facility] Tobacco use and exposure 01/03/2020 12:00:00 AM EDT Never used co mpleted Never used [facility] Smoking 01/03/2020 12:00:00 AM EDT Never smoker completed Never s moker [facility] Alcohol intake 07/13/2019 12:00:00 AM EDT Current non-d carisa of alcohol (finding) completed Current non-drinker of alcohol (finding) [facility] Vital Signs ID Date Data Source UNK Name Value Range Interpretation Code Description Data Source(s) Diastolic blood pressure 85 mm[Hg] 85 mm[Hg] eCW1 ([facility]) Systolic blood pressure 121 mm[Hg] 121 mm[Hg] e CW1 ([facility]) Body temperature [degF] eCW1 ([facility]) Respiratory rate 16 /min 16 /min eCW1 ([facility]) Heart rate 98 /min 98 /min eCW1 ([facility]) Body mass index (BMI) [Ratio] 43.25 kg/m2 43.25 kg/m2 eCW1 ([facility]) Body height 64 [in_us] 64 [in_us] eCW1 ([facility]) Body weight Measured 252 [lb_av] 252 [lb_av] eC W1 ([facility]) ID Date Data Source [id number] 01/05/2020 03:06:09 PM EDT [facility] Name Value Range Interpretation Code Description Data Source(s) WEIGHT RECORDED 248 lb 248 lb [facility] Body height Measured 64.02 in 64.02 in [facility] ID Date Data Source [id number] 11/05/2019 01:31:23 PM [facility] Name Value Range Interpretation Code Description Data Source(s) WEIGHT RECORDED 246.00 pounds 246.00 pounds [facility] Height [address] [facility] Patient Treatment Plan of Care Planned Activity Planned Date Details Description Data Source (s) methylPREDNISolone 4 MG Oral Tablet Therapy Pack (MEDR OL DOSEPACK) 01/03/2020 12:00:00 AM [facility] Oxycodone Hydrochloride 5 MG Oral Tablet 12/15/2019 12:00:00 AM [facility] 3 ML Insulin Glargine 100 UNT/ML Pen Injector [Lantus] 12/13/2019 12:00:00 AM [facility] Belimumab 200 MG/ML Subcutaneous Solution Auto-injecto r (BENLYSTA) 07/13/2019 12:00:00 AM [facility] methylPREDNISolone 4 MG Oral Tablet Therapy Pack (MEDR OL (LAZ)) 04/26/2019 12:00:00 AM [facility] Sulfamethoxazole 800 MG / Trimethoprim 160 MG Oral Tab let [Bactrim] 04/10/2019 12:00:00 AM EST eCW1 ([facility])
--- NOTE | 2020-05-31 15:36 | REP ---
INDICATION: DYSPNEA/COUGH. COMPARISON: 05/06/2020. TECHNIQUE: SINGLE PORTABLE AP VIEW OF THE CHEST WAS PERFORMED. FINDINGS: THERE IS NO ACUTE INFILTRATE OR PULMONARY EDEMA. LUNGS ARE CLEAR. HEART IS NOT SIGNIFICANTLY ENLARGED. MEDIASTINAL SILHOUETTE IS UNREMARKABLE. THE VISUALIZED OSSEOUS STRUCTURES ARE INTACT. IMPRESSION: NO ACUTE PULMONARY DISEASE. <Electronically signed by Naveen Torres > 05/31/20 [id number]
[2020-05-31] MEDS ORDERED: QUET25TA3 (16:18)
[2020-05-31] MEDS ORDERED: OXYC-517 (16:18)
[2020-05-31 16:27] LABS: BASO % 0.3 % (0.0-1.0); EOS # 0.1 10^3/uL (0.0-0.5); EOS % 0.6 % (0.0-3.0); HEMATOCRIT 39.9 % (36.0-47.0); LYMPH # 1.7 10^3/uL (1.5-5.0); LYMPH % 10.5 % (24.0-44.0); MEAN CORPUSCULAR HEMOGLOBIN 31.3 pg (27.0-33.0); MEAN CORPUSCULAR HGB CONC 32.6 g/dl (32.0-36.5); MEAN CORPUSCULAR VOLUME 96.1 fl (80.0-96.0); MONO # 0.9 10^3/uL (0.0-0.8); MONO % 5.6 % (0.0-5.0); NEUTROPHILS # 13.1 10^3/uL (1.5-8.5); NEUTROPHILS % 82.3 % (36.0-66.0); PLATELET COUNT, AUTOMATED 190 10^3/uL (150-450); RED BLOOD COUNT 4.15 10^6/uL (4.00-5.40); WHITE BLOOD COUNT 15.9 10^3/uL (4.0-10.0)
[2020-05-31 16:43] LABS: INR 0.92; PROTHROMBIN TIME 12.6 SECONDS (12.5-14.3)
[2020-05-31] MEDS ORDERED: oxyCODONE 5MG TAB PO ONE (16:45)
--- NOTE | 2020-05-31 17:10 | REP ---
INDICATION: DYSPNEA/COUGH. COMPARISON: Comparison chest CT studies are from 06 May 2020, November 16, 2019, and November 13, 2019.. TECHNIQUE: Helical scanning is acquired. 3 mm axial images are generated. Coronal and sagittal MPR and coronal MIP images are generated. FINDINGS: There are multifocal patchy areas of predominantly peripheral ground-glass opacity in the lung prasad bilaterally, right more numerous than left. These are consistent with inflammatory changes, including viral pneumonia. Commonly reported imaging features of COVID 19 pneumonia are present. Other processes such as influenza pneumonia, drug toxicity, and connective tissue disease can produce a similar pattern. There is no evidence of pleural effusion or pericardial effusion. No hilar or mediastinal mass or adenopathy is observed. Patient is status post gastric bypass. Gallbladder surgically absent as well. The visualized upper abdominal structures are otherwise unremarkable. IMPRESSION: Patchy areas of inflammatory ground-glass opacity is seen scattered about the lung prasad bilaterally, right more so than left. Question viral pneumonia. These are similar to but more extensive than the changes from 06 May 2020 and much less extensive than the lung disease seen in October of 2019. <Electronically signed by Stef Maldonado > 05/31/20 [id number]
[2020-05-31 17:34] LABS: ALBUMIN 3.1 GM/DL (3.2-5.2); ALT/SGPT 147 U/L (12-78); BILIRUBIN,DIRECT 0.3 MG/DL (0.0-0.2); BILIRUBIN,TOTAL 1.2 MG/DL (0.2-1.0); BLOOD UREA NITROGEN 11 MG/DL (7-18); CALCIUM LEVEL 8.3 MG/DL (8.5-10.1); CARBON DIOXIDE LEVEL 26 MEQ/L (21-32); CHLORIDE LEVEL 107 MEQ/L (98-107); CK-MB VALUE MASS < 1.0 NG/ML (<3.6); CPK CREATINE PHOSPHOKINASE 31 U/L (26-192); CREATININE FOR GFR 0.65 MG/DL (0.55-1.30); GLOMERULAR FILTRATION RATE > 60.0 (>51); GLUCOSE, FASTING 117 MG/DL (70-100); MB/CK RELATIVE INDEX 3.23 (< OR =4); NT-PRO BNP 310 PG/ML (<125); POTASSIUM SERUM 4.2 MEQ/L (3.5-5.1); SODIUM LEVEL 142 MEQ/L (136-145); THYROID STIMULATING HORMONE 0.558 uIU/ML (0.358-3.740); TROPONIN I < 0.02 NG/ML (< 0.10)
[2020-05-31] MEDS ORDERED: cefTRIAXone SOD 2 GM in D5W MINI-BAG PLUS 50 ML IV ONE (19:00)
[2020-05-31] MEDS ORDERED: AZITHROMYCIN INJ 500 MG, VIAL MATE ADAPTER 1 EACH in D5W 250 ML IV ONE (19:00)
[2020-05-31] MEDS ORDERED: LIDO5OIN19 TOP (19:32)
[2020-05-31] MEDS ORDERED: PRENTAB53 PO (19:32)
[2020-05-31] MEDS ORDERED: QUET50TA3 PO (19:32)
[2020-05-31] MEDS ORDERED: NARC1SPR (19:32)
[2020-05-31] MEDS ORDERED: BUSP15TA47 PO (19:32)
[2020-05-31] MEDS ORDERED: MUCI30TA5 PO (19:32)
[2020-05-31] MEDS ORDERED: METO1TAB32 PO (19:32)
[2020-05-31] MEDS ORDERED: POLY1.4S OU (19:32)
[2020-05-31] MEDS ORDERED: D-3-50003 PO (19:32)
[2020-05-31] MEDS ORDERED: IPRA3SP NARES (19:32)
[2020-05-31] MEDS ORDERED: OYST500T11 PO (19:32)
[2020-05-31] MEDS ORDERED: PROAAER10 INH (19:32)
[2020-05-31] MEDS ORDERED: CETI-24 PO (19:32)
[2020-05-31] MEDS ORDERED: QUET25TA3 PO (19:32)
[2020-05-31] MEDS ORDERED: BENL200I SC (19:32)
[2020-05-31] MEDS ORDERED: DULO1CAP6 PO (19:32)
[2020-05-31] MEDS ORDERED: BYDU1INJ SC (19:32)
[2020-05-31] MEDS ORDERED: ACET-908 PO (19:32)
[2020-05-31] MEDS ORDERED: TRES1INJ2 SC (19:32)
[2020-05-31] MEDS ORDERED: JARD1TAB3 PO (19:32)
[2020-05-31] MEDS ORDERED: PANT-23 PO (19:32)
[2020-05-31] MEDS ORDERED: DULO30CA9 PO (19:32)
[2020-05-31] MEDS ORDERED: CRES10TA PO (19:32)
[2020-05-31] MEDS ORDERED: CELE1CAP4 PO (19:32)
[2020-05-31] MEDS ORDERED: LYRI200C PO (19:32)
[2020-05-31] MEDS ORDERED: LISI-898 PO (19:32)
[2020-05-31] MEDS ORDERED: METF500T13 PO (19:32)
[2020-05-31] MEDS ORDERED: OXYB-54 PO (19:32)
[2020-05-31] MEDS ORDERED: BACL10TA2 PO ×2 (19:32)
[2020-05-31] MEDS ORDERED: MICO2CRE TOP (19:32)
[2020-05-31] MEDS ORDERED: OXYC-517 PO (19:32)
--- NOTE | 2020-05-31 19:38 | ECGEPIP ---
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
[2020-05-31] MEDS ORDERED: LIDOCAINE 5% OINT 30 GM TOP PRN (20:30)
[2020-05-31] MEDS ORDERED: GLUCOSE 4GM CHEW TABLET PO PRN (20:30)
[2020-05-31] MEDS ORDERED: DEXTROSE 50% 50 ML SYRINGE IV PRN (20:30)
[2020-05-31] MEDS ORDERED: BACLOFEN 10 MG TAB PO PRN (20:30)
[2020-05-31] MEDS ORDERED: busPIRone 5 MG TAB PO PRN (20:30)
[2020-05-31] MEDS ORDERED: GLUCAGON INJ 1MG VIAL SC PRN (20:30)
--- OUTSIDE RECORDS SUMMARY | 2020-05-31 20:34 | CCD ---
Author Author [facility] Organization [facility] Address Unknown Phone Unavailable Care Team Providers Care Center Lead Consultant Name Role Phone Radha HENRY JAGDEEP Unavailable Unavailable TURRIN, JAMES Unavailable Unavailable TURRIN, JAMES Unavailable Unavailable TURRIN, JAMES Unavailable Unavailable TURRIN, JAMES Unavailable Unavailable Ashleigh Falanga, A Janice PSYCHOLOGICAL EXAMINER Unavailable Unavailable Kendall Falanga, A Janice PSYCHOLOGICAL EXAMINER Unavailable Unavailable Ashleigh Falanga, A Janice PSYCHOLOGICAL EXAMINER Unavailable Unavailable Kendall Falanga, A Janice PSYCHOLOGICAL EXAMINER Unavailable Unavailable Kendall Falanga, A Janice PSYCHOLOGICAL EXAMINER Unavailable Unavailable Ashleigh Falanga, A Janice PSYCHOLOGICAL EXAMINER Unavailable Unavailable Ashleigh Falanga, A Janice PSYCHOLOGICAL EXAMINER Unavailable Unavailable Kendall Falanga, A Janice PSYCHOLOGICAL EXAMINER Unavailable Unavailable Kendall Falanga, A Janice PSYCHOLOGICAL EXAMINER Unavailable Unavailable Kendall Falanga, A Janice PSYCHOLOGICAL EXAMINER Unavailable Unavailable Ashleigh Falanga, A Janice PSYCHOLOGICAL EXAMINER Unavailable Unavailable Kendall Falanga, A Janice PSYCHOLOGICAL EXAMINER Unavailable Unavailable Ashleigh Falanga, A Janice PSYCHOLOGICAL EXAMINER Unavailable Unavailable Kendall Falanga, A Janice PSYCHOLOGICAL EXAMINER Unavailable Unavailable Kendall Falanga, A Janice PSYCHOLOGICAL EXAMINER Unavailable Unavailable Kendall Falanga, A Janice PSYCHOLOGICAL EXAMINER Unavailable Unavailable Kendall Falanga, A Janice PSYCHOLOGICAL EXAMINER Unavailable Unavailable Ashleigh Falanga, A Janice PSYCHOLOGICAL EXAMINER Unavailable Unavailable Ashleigh Falanga, A Janice PSYCHOLOGICAL EXAMINER Unavailable Unavailable Kendall Falanga, A Janice PSYCHOLOGICAL EXAMINER Unavailable Unavailable Kendall Falanga, A Janice PSYCHOLOGICAL EXAMINER Unavailable Unavailable Kendall Falanga, A Janice PSYCHOLOGICAL EXAMINER Unavailable Unavailable Ashleigh Falanga, A Janice PSYCHOLOGICAL EXAMINER Unavailable Unavailable Ashleigh Falanga, A Janice PSYCHOLOGICAL EXAMINER Unavailable Unavailable Ashleigh Falanga, A Janice PSYCHOLOGICAL EXAMINER Unavailable Unavailable Ashleigh Falanga, A Janice PSYCHOLOGICAL EXAMINER Unavailable Unavailable Kendall Falanga, A Janice PSYCHOLOGICAL EXAMINER Unavailable Unavailable Ashleigh Falanga, A Janice PSYCHOLOGICAL EXAMINER Unavailable Unavailable Kendall Falanga, A Janice PSYCHOLOGICAL EXAMINER Unavailable Unavailable Ashleigh Falanga, A Janice PSYCHOLOGICAL EXAMINER Unavailable Unavailable BERRY BEJARANO MD Unavailable Unavailable [...] NOT IN PROVIDER Unavailable Unavailable DESJARLAIS, SARAH SUPERVISOR DATA PROCESSING Unavailable Unavailable DESJARLAIS, SARAH SUPERVISOR DATA PROCESSING Unavailable Unavailable DESJARLAIS, SARAH SUPERVISOR DATA PROCESSING Unavailable Unavailable DESJARLAIS, SARAH SUPERVISOR DATA PROCESSING Unavailable Unavailable DESJARLAIS, SARAH SUPERVISOR DATA PROCESSING Unavailable Unavailable DESJARLAIS, SARAH SUPERVISOR DATA PROCESSING Unavailable Unavailable DESJARLAIS, SARAH SUPERVISOR DATA PROCESSING Unavailable Unavailable DESJARLAIS, SARAH SUPERVISOR DATA PROCESSING Unavailable Unavailable DESJARLAIS, SARAH SUPERVISOR DATA PROCESSING Unavailable Unavailable Re-disclosure Warning The records that [...] is protected by Article 27-F of the [facility] Public Health law. If you continue you may have access to information: Regarding HIV / AIDS; Provided by facilities licensed or operated by the [facility] Office of Mental Health; or Provided by the [facility] Office for People With Developmental Disabilities. If such information is present, then the following [facility] mandated warning applies: This information has [...] law may result in a fine or halfway sentence or both. A general authorization for the release of medical or other information is NOT sufficient authorization for further disc losure. Allergies and Adverse Reactions Type Description Substance Reaction Status Data Source(s ) Food allergy KIWI FRUIT EXTRACT KIWI FRUIT EXTRACT [facility] Drug allergy LAMOTRIGINE LAMOTRIGINE [facility] Drug allergy ONDANSETRON ONDANSETRON [facility] Kiwi Kiwi Kiwi throat swelling Active eCW1 ([facility]) Lamotrigine Lamotrigine Lamotrigine Rash Active eCW1 ([facility]) Family History Family Member Name Family Member Gender Family Member Status Date o f Status Description Data Source(s) Unknown Unknown Problem MEDENT ([facility], ) Unknown Unknown Problem MEDENT ([facility] ) Unknown Unknown Problem MEDENT ([facility] ) Unknown Unknown Problem MEDENT ([facility], ) Unknown Female Problem MEDENT ([facility] ) Encounters Encounter Providers Location Date Indications Data Source(s ) Outpatient Attender: CORRINA BEJARANO MD 07/03/2020 12:00:00 A M [facility] Outpatient Attender: JAGDEEP HENRY 05/15/2020 02:00:00 PM [facility] Outpatient Attender: JAGDEEP HENRY 05/02/2020 03:00:00 PM [facility] Outpatient Attender: JAGDEEP HENRY 04/17/2020 02:00:00 PM [facility] Outpatient Attender: SARAH BELCHER NP 04/04/2020 02: 00:00 PM [facility] Outpatient Attender: JAGDEEP HENRY 03/27/2020 02:00:00 PM [facility] Outpatient Attender: JAGDEEP HENRY 02/08/2020 01:00:00 PM [facility] Outpatient Attender: CORRINA BEJARANO MD 01/31/2020 12:00:00 A M [facility] Outpatient Attender: JAGDEEP HENRY 01/20/2020 01:00:00 PM [facility] Outpatient Attender: CORRINA BEJARANO MD 01/17/2020 12:00:00 A M EDT [facility] Outpatient Attender: CORRINA BEJARANO MD [id number] 2019 12:00:00 AM EDT - 01/04/2020 12:00:00 AM EDT Systemic lupus erythematosus, unspecified [facility] Systemic lupus erythematosus, unspecifie d Outpatient Attender: JAGDEEP HENRY 12/23/2019 03:00:00 PM [facility] Outpatient Referrer: PROVIDER SYSTEM IN 11/26/2019 1 1:33:00 AM EDT new onset seizure [facility] new onset seizure Outpatient Attender: Janice Feliz FNPAttender: ALEXANDRA BAR 10/24/2019 12:24:00 PM EDT - 10/26/2019 01:00:00 PM EDT [facility] Patient discharged. Outpatient Attender: CORRINA BEJARANO MD [id number] 2019 12:00:00 AM EDT - 07/13/2019 10:39:22 AM EDT Systemic lupus erythematosus, unspecified [facility] Systemic lupus erythematosus, unspecifie d [facility] [address] [address] 04/10/2019 12:00:00 AM EST eCW1 ([facility]) Medications Medication Brand Name Start Date Product Form Dose Route Admi nistrative Instructions Pharmacy Instructions Status Indications Reaction Description Data Source(s) methylPREDNISolone 4 MG Oral Tablet Therapy Pack (MEDROL DOS EPACK) [id number] 01/03/2020 12:00:00 AM EDT active follow package directions [facility] Oxycodone Hydrochloride 5 MG Oral Tablet oxyCODONE HCl 5 MG Oral Tablet (ROXICODONE) oxyCODONE HCl 5 MG Oral Tablet (ROXICODONE) 12/15/2019 12:00:00 AM EDT active [facility] 3 ML Insulin Glargine 100 UNT/ML Pen Inj barrett [Lantus] Lantus SoloStar 100 UNIT/ML Subcutaneous Solution Pen-injector Lantus SoloStar 100 UNIT/ML Subcutaneous Solution Pen-injector 12/13/2019 12:00:00 AM EDT active [facility] Belimumab 200 MG/ML Subcutaneous Solution Auto-injector (PANKAJ LYSTA) [id number] 07/13/2019 12:00:00 AM EDT 200 mg Subcutaneous active Inject 1 mL into the skin every 7 (seven) days [facility] methylPREDNISolone 4 MG Oral Tablet Therapy Pack (MEDROL (PA K)) [id number] 04/26/2019 12:00:00 AM EST 8 mg Oral aborted Take 2 tablets by mouth Two Times Daily follow package directions [facility] Sulfamethoxazole 800 MG / Trimethoprim 1 60 MG Oral Tablet [Bactrim] Bactrim DS 800-160 MG Bactrim DS 800-160 MG 04/10/2019 12:00:00 AM EST active 1 tablet [facility] ([facility]) Insurance Providers Payer name Policy type / Coverage type Policy ID Covered republican ID Covered republican's relationship to fabian Policy Fabian Plan Information [facility] [id number] WI2 [id number] [place] WPS [id number] SPO [id number] [facility] WPS [id number] SPO [id number] HUMAN [place] O [id number] C [id number] U [id number] Self [id number] [facility] HUMANA - O/P [id number] 01 [id number] ANSI-Not a Secondary Insurance [id number] ANSI-Commercial [id number] [place] Claims F [id number] SELF [id number] [place] Claims F [id number] SELF [id number] N REGIONAL CLAIMS PAM -O/P [id number] 01 [id number] [facility] Health Maintenance Organization (HMO) [id number] Family Dependent [id number] [facility] ([facility] Health Maintenance Organization (HMO) [id number] Family Dependent [id number] [facility] Health Maintenance Organization (HMO) [id number] Family Dependent [id number] [place] (2018) Health Maintenance Organization (HMO) [id number] Family Dependent [id number] [place] HUMANA [id number] HU2 [id number] [facility] Health Maintenance Organization ([facility]) [id number] Family Dependent [id number] [facility] [id number] HU2 [id number] U [id number] Spouse [id number] U [id number] Self [id number] [facility] Health Maintenance Organization (HMO) [id number] Family Dependent [id number] [facility] [id number] HU2 [id number] U [id number] Spouse [id number] SELF PAY ONLY UNAVAILABLE SP UNAV AILABLE [facility] Commercial [id number] Family Dependent [id number] [facility]ALTH[facility]/ AD O [id number] S [id number] [facility] BRANT O [id number] S [id number] [facility] Commercial [id number] Family Dependent [id number] [facility] Health Maintenance Organization ([facility]) [facility] Federal Service Commercial [facility] F PLEASE GET SELF PLEASE GET [facility] [id number] [id number] [facility] BR[facility] O [id number] S [id number] Problems, Conditions, and Diagnoses Code Display Name Description Problem Type Effective Dates Data Source(s) F43.9 Reaction to severe stress, unspecified R EACTION TO SEVERE STRESS, UNSPECIFIED Diagnosis 05/15/2020 02:00:00 PM [facility] F32.9 Major depressive disorder, single episod e, unspecified MAJOR DEPRESSIVE DISORDER, SINGLE EPISODE, UNSPECI Diagnosis 05/15/2020 02:00:00 PM [facility] F41.9 Anxiety disorder, unspecified ANXIETY DISORDER, UNSPEC IFIED Diagnosis 05/15/2020 02:00:00 PM [facility] F43.23 Adjustment disorder with mixed anxiety a nd depressed mood ADJUSTMENT DISORDER WITH MIXED ANXIETY AND DEPRESS Diagnosis 04/04/2020 02:00:00 PM [facility] new onset seizure new onset seizure Diagnosis 11/26/2019 11:33:00 AM EDT [facility] F339 Major depressive disorder, recurrent, un specified Major depressive disorder, recurrent, unspecified Diagnosis 10/24/2019 12:24:00 PM EDT [facility] F419 Anxiety disorder, unspecified Anxiety disorder, unspec ified Diagnosis 10/24/2019 12:24:00 PM EDT [facility] M797 Fibromyalgia Fibromyalgia Diagnosis 10/24/2019 12:24:00 P M EDT [facility] M329 Systemic lupus erythematosus, unspecifie d Systemic lupus erythematosus, unspecified Diagnosis 10/24/2019 12:24:00 PM EDT [facility] M545 Low back pain Low back pain Diagnosis 10/24/2019 12:24:00 PM EDT [facility] Z6841 Body mass index (BMI) 40.0-44.9, adult B danette mass index (BMI) 40.0-44.9, adult Diagnosis 10/24/2019 12:24:00 PM EDT [facility] E669 Obesity, unspecified Obesity, unspecified Diagnosis [facility] Unspecified atrial fibrillation Unspecified atrial fib rillation Diagnosis 10/24/2019 [facility] Z794 termite treater (current) use of insulin half-way (cu rrent) use of insulin Diagnosis 10/24/2019 12:24:00 PM EDT [facility] E119 Type 2 diabetes mellitus without complic ations Type 2 diabetes mellitus without complications Diagnosis 10/24/2019 12:24:00 PM EDT [facility] R0902 Hypoxemia Hypoxemia Diagnosis 10/24/2019 12:24:00 PM ED T [facility] J189 Pneumonia, unspecified organism Pneumonia, unspecified organism Diagnosis 10/24/2019 [facility]Proced[facility] Procedure Description Date Indications Data Source(s) QUANTIFERON-TB GOLD PLUS QUANTIFERON-TB GOLD PLUS Routine 01/03/2020 4:13 PM EDT Systemic lupus erythematosus, unspecified SLE type, unspecified organ involvement status High risk medication use BETHANY positive 01/03/2020 04:13:00 PM EDT BETHANY positiveH igh risk medication useSystemic lupus erythematosus, unspecified SLE type, unspecified organ involvement status [facility] BETHANY positive High risk medication use [...] unspecified organ involvement status [facility] BETHANY positive High risk medication use [...] unspecified organ involvement status [facility] BETHANY positive High risk medication use [...] unspecified organ involvement status [facility] BETHANY positive High risk medication use [...] unspecified organ involvement status [facility] BETHANY positive High risk medication use Systemic lupus erythematosus, unspecifie d SLE type, unspecified organ involvement status STREP A ASSAY W/OPTIC 04/10/2019 12:00:00 AM EST eCW1 ([facility]) Results ID Date Data Source [id number] 05/06/2020 01:37:00 PM EST [facility] Name Value Range Interpretation Code Description Data Glenda rce(s) Supporting Document(s) SARS-CoV-2 (COVID 19) NEGATIVE - SARS-CoV-2 (COVID19) [facility] This lab was ordered by [facility] a nd reported by [facility]. ID Date Data Source [id number] 01/05/2020 08:05:05 AM EDT [facility] Name Value Range Interpretation Code Description Data Glenda rce(s) Supporting Document(s) Progress Note [facility] [id number] lbm [file] [id number] ID Date Data Source [id number] 01/03/2020 06:02:03 PM [facility] NegativeNo interferon-gamma response to M.tuberculosisantigens was detected. Infection withM. tuberculosis is unlikely. A single negativeresult does not exclude infection with M. TB.In patients at high risk for M. tuberculosisinfection, a 2nd test should be consideredin accordance with [id number] ATS/IDSA/CDC Clinical Practice Guidelinesfor Diagnosis of Tuberculosis in Adults andChildren [Cecil EMMANUEL et. al. Clin Infec.Jle5707 64(2):111-115] Name Value Range Interpretation Code Description Data Glenda rce(s) Supporting Document(s) Leukocytes [#/volume] in Blood by Automated count 9.4 10*3/uL 4-10 [facility] Erythrocytes [#/volume] in Blood by Automated count 4.62 10*6/uL 4.1- 5.3 [facility] Hemoglobin [Mass/volume] in Blood 14.8 g/dL 11.5-15.5 [facility] Hematocrit [Volume Fraction] of Blood by Automated count 44.8 % 3 6-45 [facility] Erythrocyte mean corpuscular volume [Entitic volume] by Auto mated count 97.0 fL 80-96 H [facility] Erythrocyte mean corpuscular hemoglobin [Entitic mass] by Automated count 31.9 pg 27-33 [facility] Erythrocyte mean corpuscular hemoglobin concentration [Mass/volume] by Automated count 32.9 g/[facility] distribution width [Ratio] by Automated count 12.4 % 11.5-14.5 [facility] Platelets [#/volume] in Blood by Automated count 225 10*3/uL 150-400 [facility] Differential cell count method - Blood [facility] Neutrophils/100 leukocytes in Blood by Automated count 64 % [facility] Lymphocytes/100 leukocytes in Blood by Automated count 27 % [facility] Monocytes/100 leukocytes in Blood by Automated count 6 % [facility] Eosinophils/100 leukocytes in Blood by Automated count 2 % [facility] Basophils/100 leukocytes in Blood by Automated count 1 % [facility] Neutrophils [#/volume] in Blood by Automated count 6.16 10*3/uL 1.8-7 .0 [facility] Lymphocytes [#/volume] in Blood by Automated count 2.50 10*3/uL 1.2-4 .0 [facility] Monocytes [#/volume] in Blood by Automated count 0.55 10*3/uL 0-0.8 [facility] Eosinophils [#/volume] in Blood by Automated count 0.14 10*3/uL 0-0.5 [facility] Basophils [#/volume] in Blood by Automated count 0.09 10*3/uL 0-0.2 [facility] Nucleated erythrocytes/100 leukocytes [Ratio] in Blood by Automated count 0 /100{WBCs} 0-0 [facility] ID Date Data Source [id number] 01/03/2020 06:12:44 PM [facility] NegativeNo interferon-gamma response to M.tuberculosisantigens was detected. Infection withM. tuberculosis is unlikely. A single negativeresult does not exclude infection with M. TB.In patients at high risk for M. tuberculosisinfection, a 2nd test should be consideredin accordance with [id number] ATS/IDSA/CDC Clinical Practice Guidelinesfor Diagnosis of Tuberculosis in Adults andChildren [Lewinsohn LIEN et. al. Clin Infec.Nnw9990 64(2):111-115] Name Value Range Interpretation Code Description Data Glenda rce(s) Supporting Document(s) Erythrocyte sedimentation rate 30 mm/hr <30 H [facility] ID Date Data Source [id number] 01/03/2020 06:27:10 PM [facility] NegativeNo interferon-gamma response to M.tuberculosisantigens was detected. Infection withM. tuberculosis is unlikely. A single negativeresult does not exclude infection with M. TB.In patients at high risk for M. tuberculosisinfection, a 2nd test should be consideredin accordance with [id number] ATS/IDSA/CDC Clinical Practice Guidelinesfor Diagnosis of Tuberculosis in Adults andChildren [Lewinsohn LIEN et. al. Clin Infec.Nnb9178 64(2):111-115] Name Value Range Interpretation Code Description Data Glenda rce(s) Supporting Document(s) Albumin [Mass/volume] in Serum or Plasma by Bromocresol green (BCG) dye binding method 3.9 g/dL 3.5[facility] Bilirubin.total [Mass/volume] in Serum or Plasma 1.1 mg/dL <1.2 [facility] Calcium [Mass/volume] in Serum or Plasma 8.9 mg/dL 8.6-10.0 [facility] Chloride [Moles/volume] in Serum or Plasma 104 mmol/L 98-107 [facility] Creatinine [Mass/volume] in Serum or Plasma 0.85 mg/dL 0.50-0.90 [facility] Glucose [Mass/volume] in Serum or Plasma 170 mg/dL 70-140 H [facility] Alkaline phosphatase [Enzymatic activity/volume] in Serum or Plasma 225 U/L 35-104 H [facility] Potassium [Moles/volume] in Serum or Plasma 4.0 mmol/L 3.4-5.1 [facility] Protein [Mass/volume] in Serum or Plasma 6.7 g/dL 6.4-8.3 [facility] Sodium [Moles/volume] in Serum or Plasma 141 mmol/L 136-145 [facility] Aspartate aminotransferase [Enzymatic activity/volume] in Serum or Plasma 95 U/L <32 H [facility] Urea nitrogen [Mass/volume] in Serum or Plasma 13 mg/dL 6-20 [facility] Osmolality of Serum or Plasma by calculation 296 mosm/kg 275-300 [facility] Creatinine/Urea nitrogen [Mass Ratio] in Serum or Plasma 15 [facility] Bicarbonate [Moles/volume] in Serum 25 mmol/L 22-29 [facility] Alanine aminotransferase [Enzymatic activity/volume] in Seru m or Plasma 679 U/L <33 H [facility] Anion gap 3 in Serum or Plasma 12 mmol/L 8-15 [facility] Glomerular filtration rate/1.73 sq M pre dicted among non-blacks [Volume Rate/Area] in Serum or Plasma by Creatinine-based formula (MDRD) 78 mL/min/1.73m2 >60 [facility] Glomerular filtration rate/1.73 sq M pre dicted among blacks [Volume Rate/Area] in Serum or Plasma by Creatinine-based formula (MDRD) >60 [facility] ID Date Data Source [id number] 01/05/2020 03:05:50 PM T [facility] NegativeNo interferon-gamma response to M.tuberculosisantigens was detected. Infection withM. tuberculosis is unlikely. A single negativeresult does not exclude infection with M. TB.In patients at high risk for M. tuberculosisinfection, a 2nd test should be consideredin accordance with [id number] ATS/IDSA/CDC Clinical Practice Guidelinesfor Diagnosis of Tuberculosis in Adults andChildren [Lewinspaolan DM et. al. Clin Infec.Voo8119 64(2):111-115] Name Value Range Interpretation Code Description Data Glenda rce(s) Supporting Document(s) Mycobacterium tuberculosis stimulated gamma interferon [Units/volume] in Blood 0.01 [IU]/mL [facility] 0.01 Mitogen stimulated gamma interferon [Units/volume] in Blood [facility] Gamma interferon background [Units/volume] in Blood by Immun oassay 0.03 [IU]/mL [facility] ID Date Data Source [id number] 01/04/2020 02:02:17 PM EDT [facility] Name Value Range Interpretation Code Description Data Glenda rce(s) Supporting Document(s) Nuclear Ab Pattern Homogenous [Titer] in Serum <80 [facility] Nuclear Ab pattern.speckled [Titer] in Serum <80 [facility] Nuclear Ab pattern.rim [Titer] in Serum <80 [facility] Nuclear Ab pattern.nucleolar [Titer] in Serum <80 [facility] ID Date Data Source [id number] 01/16/2020 08:19:00 AM EDT [facility] Name Value Range Interpretation Code Description Data Glenda rce(s) Supporting Document(s) COMMODITIES CLERK Antibodies 0.0-0.9 [facility] [place] Antibodies 0.0-0.9 [facility] ID Date Data Source [id number] 01/16/2020 08:19:00 AM EDT [facility] Name Value Range Interpretation Code Description Data Glenda rce(s) Supporting Document(s) Anti-DNA (DS) Ab Qn 0-9 [facility] Negative <5 Equivocal 5 - 9 Positive >9 ID Date Data Source [id number] 01/30/2020 09:05:00 AM EDT [facility] Name Value Range Interpretation Code Description Data Glenda rce(s) Supporting Document(s) Specimen Source Urine [facility] Streptococcus pneumoniae Ag Negative Negative [facility] Body Fluid Culture, Sterile Not indicated. [facility] Organism ID Not indicated. [facility] Please Note: [facility] [employer] standar ds require a culture to beperformed on CSF specimens submitted for bacterial antigen testing.(CAP LELIA.[id number]) Urine specimens will not be cultured. ID Date Data Source [id number] 01/30/2020 09:05:00 AM EDT [facility] Name Value Range Interpretation Code Description Data Glenda rce(s) Supporting Document(s) L. pneumophila Serogp 1 Ur Ag Negative Negative [facility] Presumptive negative for L. pneumophila serogroup 1 antigen in urine,suggesting no recent or current infection. Legionnaires' diseasecannot be ruled out since other serogroups and species may also causedisease. ID Date Data Source [id number] 10/24/2019 12:24:00 PM EDT [facility] 1 OrderSheet [facility] Emergency Department [address] [place] [address] Phone #: ext- [phone] 10/24/2019 12:16 [id number] Sex: F : 1970 Age: 49yWEIGHT:111.5 kg (S) HEIGHT:64 inches (S) BMI:42.2ALLERGIES: Kiwi, LamoTRIgine, Ondansetron, OpiodCHIEF COMPLAINT: dyspnea, asthmaDIAGNOSIS: Pneumonia, HypoxemiaLAB ORDERSOrder Description Priority Entered Acknowledged [facility] 12:33 10/24/2019 12:33 Dena [...] 12:33 10/24/2019 12:33 Dena Dunbar 2 OrderSheet [facility] Emergency Department [address] [place] [address] Phone #: ext- [phone] 10/24/2019 12:16 Patient: [...] 12:33 10/24/2019 12:51 Tiburcio Hurley Riccardo R.N. Aristeo;Window Machine Operator 12:33 10/24/2019 12:51 Berry Hurley(continuous) James Bar R.N. MCelia;EKG 12:33 10/24/2019 12:51 Berry Hurley 3 OrderSheet [facility] Emergency Department [address] [place] [address] Phone #: ext- [phone] 10/24/2019 12:16 Patient: [...] - 14:37 10/24/2019 14:43 Yari Hurleyspitalist James aBr R.N., M.D.;[Electronically signed by Berry Hurley R.N. (16:30 10/24/2019)][Electronically signed by James Bar M.D. (16:36 10/24/2019)][Electronically locked by Berry Hurley R.N. (16:30 10/24/2019)] Name Value Range Interpretation Code Description Data Glenda rce(s) Supporting Document(s) ID Date Data Source [id number] 10/24/2019 12:24:00 PM EDT [facility] 1 Medication Reconciliation Report [facility] Emergency Department [address] [place] [address] Phone #: ext- [phone] 10/24/2019 12:16 Patient: [...] Empagliflozin Oral (25 mg), daily Ergocalciferol Oral (27113 unit), daily Exenatide Subcutaneous 2mcg, once a week Ferrous Sulfate Iron Oral (200 (65 Fe) mg) 1 tablet, 2x a day Lantus Subcutaneous 16 units, daily, at bedtime 2 Medication Reconciliation Report [facility] Emergency Department [address] [place] [address] Phone #: ext- [phone] 10/24/2019 12:16 Patient: [...] Medication information:Not obtained. 3 Medication Reconciliation Report [facility] Emergency Department [address] [place] [address] Phone #: ext- [phone] 10/24/2019 12:16 Patient: [...] rce(s) Supporting Document(s) ID Date Data Source [id number] 10/24/2019 12:24:00 PM EDT [facility] 1 Medication Administration Record [facility] Emergency Department [address] [place] [address] Phone #: ext- [phone] 10/24/2019 12:16 Patient: [...] POStart ROCEPHIN (1GM/50ML) [IVPB] Rocephin (1gm/50mL) IVPB 340298:53 10/24/2019 (CEFTRIAXONE SODIUM) mg with Dextrose 50 [...] mL bagStop Site: #1 right AC15:52 10/24/2019Berry uHrley R.N.Given DEXAMETHASONE [IVP] Dexamethasone IVP 10 mg14:43 10/24/2019 Dose: 10 mg IVPRoBerry wilks R.N. Site: #1 right AC Name Value Range Interpretation Code Description Data Glenda rce(s) Supporting Document(s) ID Date Data Source [id number] 10/24/2019 12:24:00 PM EDT [facility] 1 General Instructions [facility] Emergency Department [address] [place] [address] Phone #: ext- [phone] 10/24/2019 12:16 Patient: CLINTON HAN Sex: F : 1970 Age: 49yBronchopneumonia with hypoxemia.Hypoxia.(Electronically signed by James Bar M.D. 10/24/2019 16:36) Name Value Range Interpretation Code Description Data Glenda rce(s) Supporting Document(s) ID Date Data Source [id number] 10/24/2019 12:24:00 PM EDT [facility] 1 Clinical Report - Nurses [facility] Emergency Department [address] [place] [address] Phone #: ext- [phone] 10/24/2019 12:16 Patient: [...] week, did not get much sleep). Treatment [place] ATTENDANT: None. SEPSIS SCREEN: SIRS Screen negative. Sepsis [...] Hurley R.N. 2 Clinical Report - Nurses [facility] Emergency Department [address] [place] [address] Phone #: ext- [phone] 10/24/2019 12:16 Patient: [...] mg) 1 capsule, daily. --12:46 10/24/19 Berry Hurlye R.N.Albuterol Sulfate HFA Inhalation (Aerosol Solution 108 (90 Base) mcg/act), q4h as needed. --12:4610/24/19 Berry Hurley R.N.Rizatriptan Benzoate Oral 10 mg, as needed. --12:46 10/24/19 Berry Hurley R.N.Brimonidine Tartrate Ophthalmic, daily as needed. --12:47 10/24/19 Berry Hurley R.N.Empagliflozin Oral (Tablet 25 mg), daily. --12:47 10/24/19 Berry Hurley R.N.Cyanocobalamin Oral (Tablet 1000 mcg), daily. --12:47 10/24/19 Berry Hurley R. N.Ergocalciferol Oral (Capsule 56148 unit), daily. --12:48 10/24/19 Berry Hurley R.N.AllergiesKiwi.LamoTRIgine.(rash) --12:29 10/24/19 Berry Hurley R.N.Opiod. --12:48 10/24/19 Berry Hurley R.N.Ondansetron. --12:48 10/24/19 Berry Hurley R.N.PROBLEMS:Compressed disc.Diabetes Mellitus.Degenerative Joint Disease.Acute Pain.Cellulitis.Back Pain.Spinal Injury.Neck Pain.PCOS.Gall bladder.Insulin resistance. 3 Clinical Report - Nurses [facility] Emergency Department [address] [place] [address] Phone #: ext- [phone] 10/24/2019 12:16 Patient: [...] factors identified. 4 Clinical Report - Nurses [facility] Emergency Department [address] [place] [address] Phone #: ext- [phone] 10/24/2019 12:16 Patient: [...] --12:26 10/24/19 Berry Hurley R.N.NURSING PROGRESS NOTES decator operator and NIBP monitor placed on patient; monitor [...] Hurley R.N. 5 Clinical Report - Nurses [facility] Emergency Department [address] [place] [address] Phone #: ext- [phone] 10/24/2019 12:16 Patient: [...] she normally takes, and is in pain, press writer asked Dr. Gay the pt could [...] IV flushed 6 Clinical Report - Nurses [facility] Emergency Department [address] [place] [address] Phone #: ext- [phone] 10/24/2019 12:16 [facility]: [id number] Sex: F : 1970 Age: 49y thoroughly [...] cannula at 2 liters/minute. --15:13 10/24/19 Berry Hruley R.N. 14:45 10/24/19. BP: 95/70. MAP: 78. [...] Transported via 7 Clinical Report - Nurses [facility] Emergency Department [address] [place] [address] Phone #: pdf- [phone] 10/24/2019 12:16 Patient: CLINTON HAN Sex: F [...] rce(s) Supporting Document(s) ID Date Data Source [id number] 10/24/2019 12:24:00 PM EDT [facility] 1 Clinical Report - Physicians/Mid Levels [facility] Emergency Department [address] [place] [address] Phone #: ext- [phone] 10/24/2019 12:16 Patient: CLINTON HAN Sex: F [...] disease. 2 Clinical Report - Physicians/Mid Levels [facility] Emergency Department [address] [place] [address] Phone #: ext- [phone] 10/24/2019 12:16 Patient: CLINTON HAN Sex: F : 1970 Age: 49yArthritis.DDD.Chronic pain.Chronic Fatigue Syndrome [RuleOut].Additional Surgeries:Cholecystectomy.Gastric bypass.Hysterectomy.Partial hysterectomy.Right shoulder.Right Shoulder.James-en-Y gastrojejunostomy.Sinus Surgery.Medications:Ergocalciferol Oral (Capsule 42926 unit), daily.Cyanocobalamin Oral (Tablet 1000 mcg), daily.Empagliflozin [...] bedtime. 3 Clinical Report - Physicians/Mid Levels [facility] Emergency Department [address] [place] [address] Phone #: [phone] ext- [phone] 10/24/2019 12:16 Patient: CLINTON HAN [facility]#: [id number] Sex: F : 1970 Age: 49y Naloxone. [...] Technique: 4 Clinical Report - Physicians/Mid Levels [facility] Emergency Department [address] [place] [address] Phone #: ext- [phone] 10/24/2019 12:16 Patient: [...] 3.40) 5 Clinical Report - Physicians/Mid Levels [facility] Emergency Department [address] [place] [address] Phone #: ext- [phone] 10/24/2019 12:16 Patient: [...] Male GFR Interprentation 20-49 yrs >60 mL/min Kypxkb44-16 yrs >56 mL/min Normal 60-69 yrs >49 mL/min Normal 70-79yrs>42 mL/min Normal 80 and above >35 mL/min Normal Female GFRInterpretation 20-39 yrs >60 mL/min Normal 40-49 yrs >58 mL/minNormal 50-59 yrs >51 mL/min Normal 60-69 yrs >45 mL/min Yulavj42-72 yrs >39 mL/min Normal 80 and above >32 mL/min NormalLipase: (WHITNEY: 10/24/2019 12:40) ( [facility] 10/24/2019 13:25) Final results Test Result Flag Units (Reference) LIPASE 24 U/L (13 - 60)PT/PTT: (WHITNEY: 10/24/2019 12:40) ( [facility] 10/24/2019 13:03) Final results Test Result Flag Units (Reference) PROTIME 11.8 SECONDS (11.0 - 15.5) INR 0.86 L (0.93 - 1.23) PTT 21.7 L SECONDS (24.8 - 36.7) \\BLDo\\INR INTERPRETATION\\BLDx\\ Therapeutic range for Coumadin andrelated oral anticoagulants. -International Normalized Ratio (INR): 2.0 - 3.0 for VenousThrombosis, Pulmonary Embolus, Tissue heart valves, Acute [place] Atrial Fibrillation, Valvular heart diseaseand recurrent Systemic Embolism. -International Normalized Ratio (INR): 2.5 - 3.5 forMechanical Prosthetic valve.Troponin-T: (WHITNEY: 10/24/2019 12:40) ( [facility] 10/24/2019 13:26) Final results 6 Clinical Report - Physicians/Mid Levels [facility] Emergency Department [address] [place] [address] Phone #: ext- [phone] 10/24/2019 12:16 Patient: CLINTON HAN Sex: F : 1970 Age: 49y Test Result Flag Units (Reference) TROPONIN T <0.01 NG/ML (0.00 - 0.10) TROPONIN T0.1 ng/ml Recommended as the clinical threshold value forTroponin T. BNP: (WHITNEY: 10/24/2019 12:40) ( [facility] 10/24/2019 13:25) Final results Test Result Flag Units (Reference) BNP 171 H PG/ML (0 - 125) D-Dimer: (WHITNEY: 10/24/2019 12:40) ( [facility] 10/24/2019 13:07) Final results Test Result Flag Units (Reference) D-DIMER QUANT 0.97 H ug/mL (0.27 - 0.50) EKG: (WHITNEY: 10/24/2019 12:33) ( [facility] 10/24/2019 14:26) In Progress Chest 2 View: (WHITNEY: 10/24/2019 12:33) ( [facility] 10/24/2019 12:51) In Progress CHEST 2 VIEWS [...] Decadron IV; case discussed w Janice Ashleigh-Falangia, SUPERVISOR DATA PROCESSING hospitalist, will admit 14:31 10/24/19. pt feeling [...] hypoxemia. 7 Clinical Report - Physicians/Mid Levels [facility] Emergency Department [address] [place] [address] Phone #: ext- [phone] 10/24/2019 12:16 [facility]: [id number] Sex: F : 1970 Age: 49y Hypoxia.(Electronically signed by James Bar M.D. 10/24/2019 16:36) Name Value Range Interpretation Code Description Data Glenda rce(s) Supporting Document(s) ID Date Data Source [id number] 10/24/2019 12:24:00 PM EDT [facility] Addenda for CLINTON HAN VisitID: [id number] Date: 16:34Med Rec request faxed to [employer] with t-system overview @ 1459T-sysytem overview faxed to [facility] @ 1508Metformin discharge insturctions faxed to [employer] @ [phone](Electronically signed by Samuel Warner - 10/24/2019 16:34)11/04/2019 14:22pt was tested for covid-19 in [facility] not ED. Pt called to day for test results she stated that she was supposeto be called with results, blood donor unit assistant looked up results and Mello RN told [...] rce(s) Supporting Document(s) ID Date Data Source [id number] 10/26/2019 07:13:00 AM EDT [facility] Name Value Range Interpretation Code Description Data Glenda rce(s) Supporting Document(s) BASIC METABOLIC PANEL [facility] BASIC METABOLIC PANEL Sodium [Moles/volume] in Serum or Plasma 141 mEq/L 134 - 153 [facility] Potassium [Moles/volume] in Serum or Plasma 4.5 mEq/L 3.6 - 5.0 [facility] Chloride [Moles/volume] in Serum or Plasma 107 mEq/L 98 - 107 [facility] Carbon dioxide, total [Moles/volume] in Serum or Plasma 26 MEQ/L 22 - 30 [facility] Glucose [Mass/volume] in Serum or Plasma 231 MG/DL 65 - 110 H [facility] BUN 20 MG/DL 7 - 21 [facility] Creatinine [Mass/volume] in Serum or Plasma 0.6 MG/DL 0.7 - 1.5 L [facility] BUN/CREAT 33 8 - 27 H [facility] al Calcium [Mass/volume] in Serum or Plasma 9.0 MG/DL 8.4 - 10.2 [facility] Anion gap 3 in Serum or Plasma 8.0 mmol/L 8.0 - 16.0 [facility] AGE 49 yrs [facility] AFR AMER GFR >60 mL/min [facility] Ho spital NON-AA GFR >60 mL/min [facility] Hosp ital Male GFR Inter prentation [...] >32 mL/min Normal ID Date Data Source [id number] 10/26/2019 06:54:00 AM EDT [facility] Name Value Range Interpretation Code Description Data Glenda rce(s) Supporting Document(s) CBC W/AUTOMATED DIFF [facility] COMPLETE BLOOD COUNT Leukocytes [#/volume] in Blood by Automated count 13.0 10^3/uL 4.2 - 11.0 H [facility] Erythrocytes [#/volume] in Blood by Automated count 4.09 10^6/uL 4. 20 - 5.40 L [facility] Hemoglobin [Mass/volume] in Blood 13.2 g/dL 12.0 - 16.0 [facility] Hematocrit [Volume Fraction] of Blood by Automated count 40.0 % 3 7.0 - 47.0 [facility] Erythrocyte mean corpuscular volume [Entitic volume] by Auto mated count 97.8 fL 81.0 - 101 [facility] Erythrocyte mean corpuscular hemoglobin [Entitic mass] by Automated count 32.3 pg 27.0 - 34.0 [facility] Erythrocyte mean corpuscular hemoglobin concentration [Mass/volume] by Automated count 33.0 g/dL 31.0 - 36.0 [facility] Erythrocyte distribution width [Ratio] by Automated count 12.0 % 11.5 - 14.5 [facility] Platelets [#/volume] in Blood by Automated count 241 10^3/uL 150 - 45 0 [facility] Platelet mean volume [Entitic volume] in Blood by Automated count 10.4 fL 7.4 - 10.4 [facility] Neutrophils/100 leukocytes in Blood by Automated count 83.9 % 37. 0 - 80.0 H [facility] Lymphocytes/100 leukocytes in Blood by Manual count 10.0 % 25.0 - 40.0 L [facility] Monocytes/100 leukocytes in Blood by Automated count 4.4 % 3.0 - 8.0 [facility] Eosinophils/100 leukocytes in Blood by Automated count 0.0 % 0.0 - 7.0 [facility] Basophils/100 leukocytes in Blood by Automated count 0.2 % 0.0 - 2.5 [facility] %IG 1.5 % 0.0 - 0.0 H [facility] Hospit al %NRBC 0.0 % 0.0 - 0.0 [facility] Neutrophils [#/volume] in Blood by Automated count 10.93 10^3/uL 2. 00 - 6.90 H [facility] Lymphocytes [#/volume] in Blood by Automated count 1.30 10^3/uL 0.60 - 3.40 [facility] Monocytes [#/volume] in Blood by Automated count 0.57 10^3/uL 0.00 - 0.90 [facility] Eosinophils [#/volume] in Blood by Automated count 0.00 10^3/uL 0.00 - 0.70 [facility] Basophils [#/volume] in Blood by Automated count 0.03 10^3/uL 0.00 - 0.20 [facility] #IG 0.20 10^3/uL 0.00 - 0.10 H [facility] H ospital #NRBC 0.00 10^3/uL 0.00 - 0.00 [facility] MANUAL DIFF NOT INDICATED [facility] RBC MORPH NOT INDICATED [facility] spital ID Date Data Source [id number] 10/25/2019 08:43:[address] [facility] [address] [place] [address] RESPIRATORY CARE REPORT ==== ---------NAME------- NUMBER SEX AGE ADMIT DISC. XRAY# F/C MAGDALENE Crawford [id number] F 49 10/24/19 [id number] SB4 O/P DATE OF : 1970 M/R# [id number] PH#: [phone] 117-1 LOCATION: [place] [id number] COMP LETE:10/24/19 14:22 EWW [id number] PHYSICIAN: ROXANNE MORRIS Name Value Range Interpretation Code Description Data Glenda rce(s) Supporting Document(s) ID Date Data Source [id number] 10/25/2019 12:10:00 PM EDT [address] [place] [address] PHONE: [phone] FAX: [phone] Name .................. : GUILLE Crawford Acct Number.................. : [id number] ROOM. ................. : 117-1 Number ................... : [id number] Stay type ............. : O/P Discharge Date......... ... : Admit Date ......... : 10/24/19 Admit Phys .................... : ROXANNE Date of ....... : 1970 Family Phys ................... : UNKNOWN Phone .................. : [phone] Age ................................ : 49 Film# .................. .:[id number] Sex ................................. : F Unsigned transcriptions are preliminary reports and do not represent a medical or legal document DOPPLER VENOUS BILAT LEG 39308 COMPLETE:10/24/19 15:04 [id number] (REASON FOR PROCESS: ABNORMAL D-DIMER BILATERAL LOWER [...] for: EMERGENCY DEPT via modem Copy for: [address] [place] [address] REC Page 1 of 1 Name Value Range Interpretation Code Description Data Glenda rce(s) Supporting Document(s) ID Date Data Source [id number] 10/25/2019 11:59:00 [place] [address] PHONE: [phone] FAX: [phone] Name .................. : GUILLE Crawford Acct Number.................. : [id number] ROOM. ................. : 117-1 MR Number ................... : [id number] Stay type ............. : O/P Discharge Date......... ... : Admit Date ......... : 10/24/19 Admit Phys .................... : ROXANNE Date of ....... : 1970 Family Phys ................... : UNKNOWN Phone .................. : [phone] Age ................................ : 49 Film# .................. .:[id number] Sex ................................. : F Unsigned transcriptions are preliminary reports and do not represent a medical or legal document CT CTA CHEST NON-CORONARY W 26835 COMPLETE:10/24/19 13:46 [facility] [address] Reason(s): rt sided CP, SOB, high d-dimer [...] of administration: Intravenous Page 1 of 2 [facility] [address] [place] [address] PHONE: [phone] FAX: [phone] Name .................. : GUILLE Crawford Acct Numb er.................. : [id number] ROOM. ................. : 117-1 MR Number ................... : [id number] Stay type ............. : O/P Discharge Date......... ... : Admit Date ......... : 10/24/19 Admit Phys .................... : ASHLEIGH-FALAN Date of ....... : 1970 Family Phys ................... : UNKNOWN Phone .................. : [phone] Age ................................ : 49 Film# .................. .:[id number] Sex ................................. : F Unsigned transcriptions are preliminary reports and do not represent a medical or legal document CT CTA CHEST NON-CORONARY W C 53607 COMPLETE:10/24/19 13:46 [facility] [address] Reason(s): rt sided CP, SOB, high d-dimer Electronically Reviewed and Signed By Octavio Chavez M.D. , 10/25/19 11:59, [facility] Transcribe Initials: NIRAV , Transcribe Date: 10/24/19 15:49, Dictation Date: Copy for: EMERGENCY DEPT via modem Copy for: 710 MED REC Page 2 of 2 Name Value Range Interpretation Code Description Data Glenda rce(s) Supporting Document(s) ID Date Data Source [id number] 10/25/2019 11:35:00 AM EDT [place] [address] [address] PHONE: [phone] FAX: [phone] Name .................. : GUILLE Crawford Acct Number.................. : [id number] ROOM. ................. : [facility] MR Number ................... : [id number] Stay type ............. : O/P Discharge Date......... ... : Admit Date ......... : 10/24/19 Admit Phys .................... : ASHLEIGHDAVE Date of ....... : 1970 Family Phys ................... : UNKNOWN Phone .......... ........ : [phone] Age ................................ : 49 Film# .................. .:[id number] Sex ................................. : F Unsigned transcriptions are preliminary reports and do not represent a medical or legal document CHEST 2 VIEWS 16496 COMPLETE:10/24/19 12:51 ARS 20999 Reason(s): Shortness of Breath CHEST X-RAY: PA [...] rce(s) Supporting Document(s) ID Date Data Source [id number] 10/25/2019 07:36:00 AM EDT [facility] Name Value Range Interpretation Code Description Data Glenda rce(s) Supporting Document(s) Magnesium [Mass/volume] in Serum or Plasma 2.3 MG/DL 1.7 - 2.2 H [facility] ID Date Data Source [id number] 10/25/2019 07:36:00 AM EDT [facility] Name Value Range Interpretation Code Description Data Glenda rce(s) Supporting Document(s) COMPREHENSIVE METABOLIC PANEL [facility] COMPREHENSIVE METABOLIC PANEL Sodium [Moles/volume] in Serum or Plasma 141 mEq/L 134 - 153 [facility] Potassium [Moles/volume] in Serum or Plasma 4.3 mEq/L 3.6 - 5.0 [facility] Chloride [Moles/volume] in Serum or Plasma 106 mEq/L 98 - 107 [facility] Carbon dioxide, total [Moles/volume] in Serum or Plasma 27 MEQ/L 22 - 30 [facility] Glucose [Mass/volume] in Serum or Plasma 179 MG/DL 65 - 110 H [facility] BUN 15 MG/DL 7 - 21 [facility] Hospit al Creatinine [Mass/volume] in Serum or Plasma 0.6 MG/DL 0.7 - 1.5 L [facility] BUN/CREAT 25 8 - 27 [facility] Protein [Mass/volume] in Serum or Plasma 5.7 G/DL 6.3 - 8.2 L [facility] Albumin [Mass/volume] in Serum or Plasma 3.8 G/DL 3.9 - 5.0 L [facility] Globulin [Mass/volume] in Serum by calculation 1.9 GM/DL 2.4 - 3.2 L [facility] A/G RATIO 2.0 0.8 - 2.0 [facility] Calcium [Mass/volume] in Serum or Plasma 8.8 MG/DL 8.4 - 10.2 [facility] Bilirubin.total [Mass/volume] in Serum or Plasma 0.8 MG/DL 0.2 - 1.3 [facility] Alkaline phosphatase [Enzymatic activity/volume] in Serum or Plasma 95 U/L 38 - 126 [facility] Aspartate aminotransferase [Enzymatic activity/volume] in Serum or Plasma 12 U/L 5 - 40 [facility] Alanine aminotransferase [Enzymatic activity/volume] in Seru m or Plasma 46 U/L 7 - 56 [facility] Anion gap 3 in Serum or Plasma 8.0 mmol/L 8.0 - 16.0 [facility] AGE 49 yrs [facility] al NON-AA GFR >60 mL/min [facility] ital AFR AMER GFR >60 mL/min [facility] Ho spital Male GFR In terprentation [...] >32 mL/min Normal ID Date Data Source [id number] 10/25/2019 07:13:00 AM EDT [facility] Name Value Range Interpretation Code Description Data Glenda rce(s) Supporting Document(s) CBC W/AUTOMATED DIFF [facility] COMPLETE BLOOD COUNT Leukocytes [#/volume] in Blood by Automated count 15.0 10^3/uL 4.2 - 11.0 H [facility] Erythrocytes [#/volume] in Blood by Automated count 4.11 10^6/uL 4. 20 - 5.40 L [facility] Hemoglobin [Mass/volume] in Blood 13.2 g/dL 12.0 - 16.0 [facility] Hematocrit [Volume Fraction] of Blood by Automated count 39.9 % 3 7.0 - 47.0 [facility] Erythrocyte mean corpuscular volume [Entitic volume] by Auto mated count 97.1 fL 81.0 - 101 [facility] Erythrocyte mean corpuscular hemoglobin [Entitic mass] by Automated count 32.1 pg 27.0 - 34.0 [facility] Erythrocyte mean corpuscular hemoglobin concentration [Mass/volume] by Automated count 33.1 g/dL 31.0 - 36.0 [facility] Erythrocyte distribution width [Ratio] by Automated count 12.0 % 11.5 - 14.5 [facility] Platelets [#/volume] in Blood by Automated count 241 10^3/uL 150 - 45 0 [facility] Platelet mean volume [Entitic volume] in Blood by Automated count 9.9 fL 7.4 - 10.4 [facility] Neutrophils/100 leukocytes in Blood by Automated count 84.3 % 37. 0 - 80.0 H [facility] Lymphocytes/100 leukocytes in Blood by Manual count 9.5 % 25.0 - 40.0 L [facility] Monocytes/100 leukocytes in Blood by Automated count 5.5 % 3.0 - 8.0 [facility] Eosinophils/100 leukocytes in Blood by Automated count 0.0 % 0.0 - 7.0 [facility] Basophils/100 leukocytes in Blood by Automated count 0.2 % 0.0 - 2.5 [facility] %IG 0.5 % 0.0 - 0.0 [facility] %NRBC 0.0 % 0.0 - 0.0 [facility] al Neutrophils [#/volume] in Blood by Automated count 12.62 10^3/uL 2. 00 - 6.90 H [facility] Lymphocytes [#/volume] in Blood by Automated count 1.43 10^3/uL 0.60 - 3.40 [facility] Monocytes [#/volume] in Blood by Automated count 0.83 10^3/uL 0.00 - 0.90 [facility] Eosinophils [#/volume] in Blood by Automated count 0.00 10^3/uL 0.00 - 0.70 [facility] Basophils [#/volume] in Blood by Automated count 0.03 10^3/uL 0.00 - 0.20 [facility] #IG 0.08 10^3/uL 0.00 - 0.10 [facility] H ospital #NRBC 0.00 10^3/uL 0.00 - 0.00 [facility] ospital MANUAL DIFF NOT INDICATED [facility] RBC MORPH NOT INDICATED [facility] Ho spital ID Date Data Source [id number] 10/25/2019 01:27:00 AM EDT [facility] Name Value Range Interpretation Code Description Data Glenda rce(s) Supporting Document(s) TROPONIN T <0.01 NG/ML 0.00 - 0.10 [facility] ospital TROPONIN T0.1 ng/ml Recommended as the c linical threshold value forTroponin T. ID Date Data Source [id number] 10/24/2019 06:53:00 PM EDT [facility] Name Value Range Interpretation Code Description Data Glenda rce(s) Supporting Document(s) TROPONIN T <0.01 NG/ML 0.00 - 0.10 [facility] ospital TROPONIN T0.1 ng/ml Recommended as the c linical threshold value forTroponin T. ID Date Data Source [id number] 11/04/2019 06:51:00 AM EDT [facility] Name Value Range Interpretation Code Description Data Glenda rce(s) Supporting Document(s) SARS-CoV-2, NAOMI Not Detected Not Detected [facility] Testing was performed using the kody(R) SARS-CoV-2 test.This test was developed and its performance characteristics determinedby [employer]. This test has not been FDA cleared [...] in this assay. ID Date Data Source [id number] 10/24/2019 02:26:00 PM EDT [facility] Name Value Range Interpretation Code Description Data Glenda rce(s) Supporting Document(s) SARS coronavirus 2 RNA [facility] This lab was ordered by [facility] amisha and reported by [facility]. ID Date Data Source [id number] 10/28/2019 03:12:00 PM EDT [facility] Name Value Range Interpretation Code Description Data Glenda rce(s) Supporting Document(s) CULTURE URINE [facility] _CULTURE URINE_$$[id number]$$[id number]$$[id number]$$[id number]$$[id number]$$[id number]$$[id number]$$[id number]$$[id number]$$ [id number]$$[id number]$$[id number]$$[id number]$$[id number]$$[id number]$$956134$$280805$$437749$$124274$$ 008901$$378916$$933914$$[id number]$$[id number]$$[id number]$$[id number]$$[id number] -- Continued on next page --Patient: GUILLE Crawford Order: [id number] Page 2Culture: CULTURE URINE Status: Final ==== -- Continued on next page --Patient: GUILLE Crawford Order: [id number] Page 2Culture: CULTURE URINE Status: Prelim =====$$[id number]$$[id number] DATE/TIME: 10/28/2019 12:07Culture: CULTURE URINE Status: FinalUrine Culture,Comprehensive: [id number] urogenital flora10,000-25,000 colony forming units per mL Previous result entered on 10/27/2019 03:54 ET Specimen has been received and testing has been initiated.P1 Test performed by: [facility] #: [id number] [address] [place] [address] [phone] [facility] [id number] Director : Julito Valero MD NPI #:Chemical Test Engineer : 10/27/[id number].SENT REF 10/28/[id number].SENT REF ID Date Data Source [id number] 10/24/2019 02:12:00 PM EDT [facility] Name Value Range Interpretation Code Description Data Glenda rce(s) Supporting Document(s) URINALYSIS [facility] Hos[facility] cathy URINALYSIS SOURCE R [facility] al COLOR yellow NORMAL: Yellow [facility] CLARITY clear NORMAL: Clear [facility] sp[facility] Specific gravity of Urine by Test strip 1.015 1.001 - 1.030 [facility] pH 5 5 - 9 [facility] Glucose [Mass/volume] in Urine by Test strip 1000 NORMAL: Negat lexus A [facility] Bilirubin.total [Presence] in Urine by Test strip NEG NORMAL: Negative [facility] Ketones [Presence] in Urine by Test strip NEG NORMAL: Negative [facility] Protein [Mass/volume] in Urine by Test strip NEG NORMAL: Negat lexus [facility] Nitrite [Presence] in Urine by Test strip NEG NORMAL: Negative [facility] BLOOD NEG NORMAL: Negative [facility] Leukocyte esterase [Presence] in Urine by Test strip 100 NICOLA L: Negative A [facility] Urobilinogen [Mass/volume] in Urine by Test strip NOR less yang n 1.0 mg/dL [facility] MICROSCOPIC See Below [facility] ital WBC 7 - 10 NORMAL: NONE SEEN A [facility] Erythrocytes [#/volume] in Urine by Test strip 1 - 3 NORMAL: NON E SEEN [facility] EPITHELIAL MODERATE NORMAL: NONE SEEN A [facility] Bacteria [Presence] in Urine sediment by Light microscopy 1+ SMALL NORMAL: NONE SEEN [facility] ID Date Data Source [id number] 10/24/2019 01:26:00 PM EDT [facility] Name Value Range Interpretation Code Description Data Glenda rce(s) Supporting Document(s) TROPONIN T <0.01 NG/ML 0.00 - 0.10 [facility] ospital TROPONIN T0.1 ng/ml Recommended as the c linical threshold value forTroponin T. ID Date Data Source [id number] 10/24/2019 01:25:00 PM EDT [facility] Name Value Range Interpretation Code Description Data Glenda rce(s) Supporting Document(s) Lipase [Enzymatic activity/volume] in Serum or Plasma 24 U/L 13 - 60 [facility] ID Date Data Source [id number] 10/24/2019 01:25:00 PM EDT [facility] Name Value Range Interpretation Code Description Data Glenda rce(s) Supporting Document(s) COMPREHENSIVE METABOLIC PANEL [facility] COMPREHENSIVE METABOLIC PANEL Sodium [Moles/volume] in Serum or Plasma 139 mEq/L 134 - 153 [facility] Potassium [Moles/volume] in Serum or Plasma 4.3 mEq/L 3.6 - 5.0 [facility] Chloride [Moles/volume] in Serum or Plasma 102 mEq/L 98 - 107 [facility] Carbon dioxide, total [Moles/volume] in Serum or Plasma 25 MEQ/L 22 - 30 [facility] Glucose [Mass/volume] in Serum or Plasma 299 MG/DL 65 - 110 H [facility] BUN 13 MG/DL 7 - 21 [facility] al Creatinine [Mass/volume] in Serum or Plasma 0.8 MG/DL 0.7 - 1.5 [facility] BUN/CREAT 16 8 - 27 [facility] al Protein [Mass/volume] in Serum or Plasma 5.9 G/DL 6.3 - 8.2 L [facility] Albumin [Mass/volume] in Serum or Plasma 3.7 G/DL 3.9 - 5.0 L [facility] Globulin [Mass/volume] in Serum by calculation 2.2 GM/DL 2.4 - 3.2 L [facility] A/G RATIO 1.7 0.8 - 2.0 [facility] Calcium [Mass/volume] in Serum or Plasma 8.9 MG/DL 8.4 - 10.2 [facility] Bilirubin.total [Mass/volume] in Serum or Plasma 1.1 MG/DL 0.2 - 1.3 [facility] Alkaline phosphatase [Enzymatic activity/volume] in Serum or Plasma 106 U/L 38 - 126 [facility] Aspartate aminotransferase [Enzymatic activity/volume] in Serum or Plasma 28 U/L 5 - 40 [facility] Alanine aminotransferase [Enzymatic activity/volume] in Seru m or Plasma 63 U/L 7 - 56 H [facility] Anion gap 3 in Serum or Plasma 12.0 mmol/L 8.0 - 16.0 [facility] AGE 49 yrs [facility] NON-AA GFR >60 mL/min [facility] ital AFR AMER GFR >60 mL/min [facility] Ho spital Male GFR In terprentation [...] >32 mL/min Normal ID Date Data Source [id number] 10/24/2019 01:25:00 PM EDT [facility] Name Value Range Interpretation Code Description Data Glenda rce(s) Supporting Document(s) BNP 171 PG/ML 0 - 125 H [facility] Hospit al ID Date Data Source [id number] 10/24/2019 01:07:00 PM EDT [facility] Name Value Range Interpretation Code Description Data Glenda rce(s) Supporting Document(s) Fibrin D-dimer FEU [Mass/volume] in Platelet poor plasma 0.97 ug /mL 0.27 - 0.50 H [facility] ID Date Data Source [id number] 10/24/2019 01:03:00 PM EDT [facility] Name Value Range Interpretation Code Description Data Glenda rce(s) Supporting Document(s) Prothrombin time (PT) 11.8 SECONDS 11.0 - 15.5 [facility] INR in Platelet poor plasma by Coagulation assay 0.86 0.93 - 1. 23 L [facility] aPTT in Blood by Coagulation assay 21.7 SECONDS 24.8 - 36.7 L [facility] \\BLDo\\INR INTERPRETATION\\BLDx\\ Therapeutic range for Coumadin and related oral anticoagulants. - International Normalized Ratio (INR): 2.0 - 3.0 for Venous Thrombosis, Pulmonary Embolus, Tissue heart valves, Acute [place] Atrial Fibrillation, Valvular heart disease and recurrent Systemic Embolism. - International Normalized Ratio (INR): 2.5 - 3.5 for Mechanical Prosthetic valve. ID Date Data Source [id number] 10/24/2019 12:59:00 PM EDT [facility] Name Value Range Interpretation Code Description Data [facility] Supporting Document(s) CBC W/AUTOMATED DIFF [facility] COMPLETE BLOOD COUNT Leukocytes [#/volume] in Blood by Automated count 11.8 10^3/uL 4.2 - 11.0 H [facility] Erythrocytes [#/volume] in Blood by Automated count 4.72 10^6/uL 4. 20 - 5.40 [facility] Hemoglobin [Mass/volume] in Blood 15.1 g/dL 12.0 - 16.0 [facility] Hematocrit [Volume Fraction] of Blood by Automated count 46.4 % 3 7.0 - 47.0 [facility] Erythrocyte mean corpuscular volume [Entitic volume] by Auto mated count 98.3 fL 81.0 - 101 [facility] Erythrocyte mean corpuscular hemoglobin [Entitic mass] by Automated count 32.0 pg 27.0 - 34.0 [facility] Erythrocyte mean corpuscular hemoglobin concentration [Mass/volume] by Automated count 32.5 g/dL 31.0 - 36.0 [facility] Erythrocyte distribution width [Ratio] by Automated count 11.9 % 11.5 - 14.5 [facility] Platelets [#/volume] in Blood by Automated count 303 10^3/uL 150 - 45 0 [facility] Platelet mean volume [Entitic volume] in Blood by Automated count 9.6 fL 7.4 - 10.4 [facility] Neutrophils/100 leukocytes in Blood by Automated count 76.1 % 37. 0 - 80.0 [facility] Lymphocytes/100 leukocytes in Blood by Manual count 13.0 % 25.0 - 40.0 L [facility] Monocytes/100 leukocytes in Blood by Automated count 7.6 % 3.0 - 8.0 [facility] Eosinophils/100 leukocytes in Blood by Automated count 1.6 % 0.0 - 7.0 [facility] Basophils/100 leukocytes in Blood by Automated count 0.8 % 0.0 - 2.5 [facility] %IG 0.9 % 0.0 - 0.0 [facility] %NRBC 0.0 % 0.0 - 0.0 [facility] al Neutrophils [#/volume] in Blood by Automated count 8.98 10^3/uL 2.00 - 6.90 H [facility] Lymphocytes [#/volume] in Blood by Automated count 1.54 10^3/uL 0.60 - 3.40 [facility] Monocytes [#/volume] in Blood by Automated count 0.90 10^3/uL 0.00 - 0.90 [facility] Eosinophils [#/volume] in Blood by Automated count 0.19 10^3/uL 0.00 - 0.70 [facility] Basophils [#/volume] in Blood by Automated count 0.09 10^3/uL 0.00 - 0.20 [facility] #IG 0.11 10^3/uL 0.00 - 0.10 H [facility] ospital #NRBC 0.00 10^3/uL 0.00 - 0.00 [facility] H ospital MANUAL DIFF NOT INDICATED [facility] RBC MORPH NOT INDICATED [facility] sp[facility] ID Date Data Source [id number] 10/24/2019 05:10:00 PM EDT [facility] Name Value Range Interpretation Code Description Data Glenda rce(s) Supporting Document(s) Hemoglobin A1c/Hemoglobin.total in Blood 10.0 % 4.4 - 6.1 H [facility] {A1]{HB] ID Date Data Source [id number] 07/20/2019 07:32:15 PM EDT [facility] Name Value Range Interpretation Code Description Data Glenda rce(s) Supporting Document(s) Progress Note [facility] PCGRTr9sXwDETpIv26/HFDbmHMXar1BlEFztLEf9FEstQDMgX5XnNLK1xQ2dSXX4YUmYVgNiWbDzOJSz lbm [file] AgICAgICAgICAgICAgICAgICAgICAgICAgICAgICAgICAgICAgICAgICAgICAgICAgICAgICAgICAgIC IqNXAoOHFoLJTnZJMmLQ5BGKEaRNIoKPHiRNDvFBRk ICAgICAgICAgICAgICAgICAgICAgICAgICAgICAgICAgICAgICAgICAgICAgICAgICAgICAgICAgICAg TPIxAVXjHOHoGPXqZZSjZGLpARLuJDIvYH5DDENaAXHmFWAdAVXgWACxXTOvIUDyCVVzXPQbYEUyVMTu ICAgICAgICAgICAgICAgICAgICAgICAgICAgICAgIC YbJLJnJFGwZMYjWUEwUBUjHGBnRLHxMOKpEZZoRALxRZOpIB4HFIQzFJShCVOoDGZhCEUtFTCfWYJcMO AgICAgICAgICAgICAgICAgICAgICAgICAgICAgICAgICAgICAgICAgICAgICAgICAgICAgICAgICAgIC KyPILxWZMpLMRaUSOwUUVvTD0NFXNnXNCbASIsCDHy ICAgICAgICAgICAgICAgICAgICAgICAgICAgICAgICAgICAgICAgICAgICAgICAgICAgICAgICAgICAg BVKqKWCjWLSnYOWqESVfWKSxHQWsMTUdKTRfWJ5SAZQuCRYtKIFmAQOaBBFlXTPuDTZyFSIaFBNgQIFw ICAgICAgICAgICAgICAgICAgICAgICAgICAgICAgIC OgLUBtPEDzTIMyPBLgNQBvWCYrSRSsSCDzNPFkHYXkBUFaKXAmWS5IECKzDFXtKYBaKRGeFTIiRXUeXY AgICAgICAgICAgICAgICAgICAgICAgICAgICAgICAgICAgICAgICAgICAgICAgICAgICAgICAgICAgIC OdAORaEGQaEIBiZGLfEBEpPOTdRP9EHXYpTPIdDYSf ICAgICAgICAgICAgICAgICAgICAgICAgICAgICAgICAgICAgICAgICAgICAgICAgICAgICAgICAgICAg WYPfRESkKCHvIBGdCMFlVOVaTPLyGHFfRXZrGWFdRA6ZOKFfUKVbENVhXMUwQXGcGZYiHKZmWYYdOJAs ICAgICAgICAgICAgICAgICAgICAgICAgICAgICAgIC BaKRIfYYKwCZEtHXYqRCTxGFGlCHTsSPZrAHMcEAKpXUAfUQXhDHOhSY5FCIHkZDWkNSRhCQNcVRRvBG AgICAgICAgICAgICAgICAgICAgICAgICAgICAgICAgICAgICAgICAgICAgICAgICAgICAgICAgICAgIC TaMGBrPHAuPGSdKNKxVGFhCQIpNNDjKJ8CWM77wEUh f5M8BXPxIL9orrs/Px0KTIzhcgPqjRRzCF4ZSqAyXL1irk2BIgYjTB3ruy2KKZaUGhNbG7D8xKLjDDJo GIPFOuLsD85bIDkmTe65AZbiKXHrIrBlWEx4Go4JRaZlG7omOXOnLrU6HTIeSuX6FIPkVjX1YJTwQnIu FISfSPDsWIKsTFAYXXZ1OPNkKrOhCzSfQSZiBDmxUE SSTE2FRjHqT4ScjW60WUkXLz1+WNavvzJiEzlWAwX2HJWta9FdORq2AI4QIOBlAwkle9QqHHMqZOXCEN qfET4BUBK3TBVnCUJvRd9XWLWkD597ivQyLI7OIb0WHfZiVJ9mib7PZYCoJPOeRhmZSdv6EQenVS1IpH LlYQhXhy8vizMhtxJBe4FkouByiFLWzXYjU3frqrop CPTeYN3OWLQ4ZXOvOdAsLrRaHACgDJiwWQTOSGaACsUiI0Hfr7SqHiJ7BGRrOjIvRPlrPGLjJyT4RF33 kLxkDP7MWBHbHSSxML86QHR5MCGzCg8YTq0YCxZhBT0zfm7SZITjWDYsGjbCLol5TJaiEZ0KfJJiM1Ls fZEvs8aWLoHiC4EFCXR0KXQbJq4WKYGxRqZmCBSsIF sqPW5qJVRwIFJSfOorejU5OG6UTX2hdcNrIX1HJxMaAu7vLh0VHkErW0BjW7BgWMBeYPCRZHgcQQ3ZSE ylMZ9mVE6Sy9KHaMKnlS0toh8NPRXoONZoTlykhs1PDkouR5D3fDpxQGRoLcaaYZIVRRtsWM9QEQYpCH W3CZFmJJOpOQTIWdFlP84nFO1XV8Ijx77wSyT8PWEl JtJwKHjqQZ35cBaemoGpzJQqgJfsGI4CAg6+DQplbmRvYmoNCnhyZWYNCjAgNDINCjAwMDAwMDAwMDAg WuM8DnIaNu6IOVVvWUQkWEHbSeMoSRRvUVIzGRnjCUOuIOC4IRPbAUQeFQRaNW2RCiLdEHWaGGvqVCBc RGTrMWQeke3JKQBzNYXaACE0UbVyEUAsXBVxHFpnEK NeCCP8WRDgIENgUGKbTQ3FQgRuXYYsDDEcTMhmIPWkEFJwsf5UPDAzKGRbMQH5TcTyHCGbWWSpTWidFA VaBRP9UKH1HJRbNXAtHD0VNjTqJVMhTHSzZDRiYXLkGBMgvs7UHREgDZWlVeG9NVSqOTUgUESqQCazEO PtSVM3MOR9PBEiCITmZP9KJnGtLQDxXZPlXGFlWCFe RDZtuo1RMUVxIWFoBIQeISWtRJWhVHIlWNiuVTHvFZM6UxY1SQMlGKOjVU5UCjZlAMJsMgD2EahuGAGa TCRytc3MHZLkQAMjRen1NRVoBAErBGQpWQhzZVEqUMZ9UNY0LCIgLTTrEI3MJaRjNVKzUuZjUoOlZNKz OUNqgm5FCIUzREJiNsT3LCZwPRUeJLQjJOedQTOmTW R6BZRbOQGtQOTxJG8DLkVlKQKjMqh8EpXlOANvLDDzqp5EIFEiQRIyRAJhFxYtVYDqVWMpMPzaWKWpCT K6FpBxPXVjYXDjGF4HKxBgITTiJuWmSShpLUTlVGClyy3VOGHxWVGxHRS1RKBoZZLkTNZgGWqsJPJoGT DmHJK2OVCtRYOeEW4INvQmIHYuVGD5PjxiLKZrJBCs dm0XPMOaWWK0PiDuNEWkQAZtRJDsHByqWMXzDOSbPHOwLTFdIFXiAU1UXnLwVUFpQSI9XjNvEVTaZSPa lb1SWCLmKPH3VoseIYEaKMHcBFSpKSqoYHDmWVCpDWZxQQCyMLKxUD9PLcBhLZFtIRGsWAScHABaSBKs aa7KBWUnAZO0HYAbSOLnYMOqULSkEOhmVGQaMVF2HQ Z6YKUkCTRrWY0FDaVjWEXtCLNrHNToKYKbOROqix8FYGPtZKF6CFCnLAHgONHiDVYdSOvyBARqFBS1CV Q6HTGxPNBaNH8ZOjCxICIrLJc4OVraTHVyEPRjtv4YZLOhSTT3KaXpFRRvFLPhFDGrEVjgKNOuXZW4Yp Z3VQGvCIPnVQ4BJmErXDhpAMWALls3LSebP2j0QZE6 Xk0QG3Fco3GtDQUdHKALVIxaMZ3fccEnMLCmIk9ZY3vDWfvlDDP2AQGrLGPqLrZlJFC3VRYyIEF9XrCg GlU5HPBvJY4pICF2AhukQjFiBHZ8NjQxJAciQlGlSgrhLwMrIXSoKYT1BlRpIH4WNt2IMfI7JKW4gEPl Kr3HWPq5EABNXtUkLO5AQHn= ID Date Data Source GATS (NEGATIVE STREP SCREEN) 04/10/2019 12:00:00 AM EST eCW1 ([facility]) Name Value Range Interpretation Code Description Data Glenda rce(s) Supporting Document(s) FULL REPORT IN LAB NOTES (eCW and [facility]). GATS CULTURE (NEG STREP SCR) eCW1 ([facility]) Procedure Social History Code Duration Value Status Description Data Source(s ) Alcohol intake 01/03/2020 12:00:00 AM EDT Current non-d carisa of alcohol (finding) completed Current non-drinker of alcohol (finding) [facility] Tobacco use and exposure 01/03/2020 12:00:00 AM EDT Never used co mpleted Never used [facility] Smoking 01/03/2020 12:00:00 AM EDT Never smoker completed Never s moker [facility] Alcohol intake 07/13/2019 12:00:00 AM EDT Current non-d carisa of alcohol (finding) completed Current non-drinker of alcohol (finding) [facility] Vital Signs ID Date Data Source UNK Name Value Range Interpretation Code Description Data Source(s) Diastolic blood pressure 85 mm[Hg] 85 mm[Hg] eCW1 ([facility]) Systolic blood pressure 121 mm[Hg] 121 mm[Hg] e CW1 ([facility]) Body temperature [degF] eCW1 ([facility]) Respiratory rate 16 /min 16 /min eCW1 ([facility]) Heart rate 98 /min 98 /min eCW1 ([facility]) Body mass index (BMI) [Ratio] 43.25 kg/m2 43.25 kg/m2 eCW1 ([facility]) Body height 64 [in_us] 64 [in_us] [facility] Body weight Measured 252 [lb_av] 252 [lb_av] eC W1 ([facility]) ID Date Data Source [id number] 01/05/2020 03:06:09 PM EDT [facility] Name Value Range Interpretation Code Description Data Source(s) WEIGHT RECORDED 248 lb 248 lb [facility] Body height Measured 64.02 in 64.02 in [facility] ID Date Data Source [id number] 11/05/2019 01:31:23 PM [facility] Name Value Range Interpretation Code Description Data Source(s) WEIGHT RECORDED 246.00 pounds 246.00 pounds [facility] Height 64 Inches 064 Inches [facility] Patient Treatment Plan of Care Planned Activity Planned Date Details Description Data Source (s) methylPREDNISolone 4 MG Oral Tablet Therapy Pack (MEDR OL DOSEPACK) 01/03/2020 12:00:00 AM [facility] Oxycodone Hydrochloride 5 MG Oral Tablet 12/15/2019 12:00:00 AM [facility] 3 ML Insulin Glargine 100 UNT/ML Pen Injector [Lantus] 12/13/2019 12:00:00 AM [facility] Belimumab 200 MG/ML Subcutaneous Solution Auto-injecto r (BENLYSTA) 07/13/2019 12:00:00 AM [facility] methylPREDNISolone 4 MG Oral Tablet Therapy Pack (MEDR OL (LAZ)) 04/26/2019 12:00:00 AM [facility] Sulfamethoxazole 800 MG / Trimethoprim 160 MG Oral Tab let [Bactrim] 04/10/2019 12:00:00 AM EST eCW1 ([facility])
[2020-05-31] MEDS ORDERED: ACETAMINOPHEN TAB 650MG DOSE (2X325MG) PO PRN (21:00)
[2020-05-31] MEDS ORDERED: POLYVINYL ALCOHOL OPHTH SOLN 15 ML(LIQUITEARS) OU PRN (21:00)
[2020-05-31] MEDS ORDERED: ALBUTEROL 90 MCG/ACT 8GM HFA INHALER INH PRN (21:00)
[2020-05-31] MEDS: IPRATROPIUM 0.03% NASAL SPRAY 30 ML (ATROVENT) SCH (21:00)
[2020-05-31] MEDS: HumaLOG INSULIN (NovoLOG) PER UNIT SC SCH (21:00)
--- NOTE | 2020-05-31 21:57 | HPEPDOC ---
General Date of Admission May 31, 2020 at 14:49 Date of Service: May 31, 2020 Attending Physician: JAIDEN KELLER DO Chief Complaint The patient is a 49-year-old female admitted with a reason for visit of Dyspnea,Pneumonia. Source: Patient History of Present Illness Mrs. Craig is a 49 year old female with recurrent pneumonia and Lupus who is here for fever, dyspnea, and productive cough. She was diagnosed with Lupus in 2016 and has been taking Benlysta since 2017. Her Survey Data Technician is Dr. Wilson in [place]. Otherwise she has been having recurrent pneumonia. She had one in October 2019 and November 2019. She recently had another a few weeks ago. A few days prior to admission, she was starting to develop a productive cough with yellow sputum. This morning, she wok up with a fever and dyspnea. Symptoms continued to worsen, so she went to the COVID clinic at [place]. While at that clinic, they felt that she had trouble completing sentences and her lungs sounded bad and sent her here per patient report. While here, she has been afebrile, but has tachypnea. She saturates between 93 to 95 at room air. Work up significant for leukocytosis of [address] chest suggestive of possible viral pneumonia, but image has been more extensive when compared to image in 05/06/2020. ED contacted, pulmonology, Dr. Alonso who recommended treating as CAP in the mean time. When I saw the patient, she was not feeling well. Still dyspneic with persistent cough. Lung sounds clear to auscultation. Patient will be placed in observation for dyspnea and pneumonia Home Medications Scheduled Baclofen (Baclofen) 10 Mg Tablet, 20 MG PO QHS, (Reported) Belimumab (Benlysta) 200 Mg/1 Ml Auto.injct, 200 MG SC QWEEK, (Reported) SUNDAYS Calcium Carbonate/Vitamin D3 (Oyster Shell 500-Vit D3 200 Tb) 1 Each Tablet, 1 TAB PO DAILY, (Reported) Celecoxib (Celebrex) 200 Mg Capsule, 200 MG PO DAILY, (Reported) Cetirizine HCl (Cetirizine HCl) 10 Mg Tablet, 10 MG PO DAILY, (Reported) Cholecalciferol (Vitamin D3) (Vitamin D3) 125 Mcg Capsule, 125 MCG PO QWEEK, ( Reported) FRIDAYS Duloxetine Hcl (Duloxetine HCl) 30 Mg Capsule.dr, 30 MG PO DAILY, (Reported) Duloxetine Hcl (Duloxetine HCl) 60 Mg Capsule.dr, 60 MG PO DAILY, (Reported) Empagliflozin (Jardiance) 25 Mg Tablet, 25 MG PO DAILY, (Reported) Exenatide Microspheres (Bydureon) 2 Mg/0.65 Ml Pen.injctr, 2 MG SC QWEEK, (Reported) SUNDAYS Insulin Degludec (Tresiba Flextouch U-100) 100 Unit/1 Ml Insuln.pen, 42 UNIT SC DAILY, (Reported) Ipratropium Sherburn (Ipratropium Sherburn) 30 Ml Kingman, 2 SPRAY NARES QHS, (Reported) Lisinopril (Lisinopril) 5 Mg Tablet, 5 MG PO DAILY, (Reported) Metformin HCl (Metformin HCl) 500 Mg Tablet, 1,000 MG PO BID, (Reported) Metoprolol Succinate (Metoprolol Succinate) 25 Mg Tab.er.24h, 25 MG PO QHS, (Reported) Oxybutynin Chloride (Oxybutynin Chloride ER) 5 Mg Tab.er.24, 10 MG PO QHS, (Reported) Oxycodone HCl (Oxycodone HCl) 5 Mg Tablet, 5 MG PO 5XD, (Reported) Pantoprazole Sodium (Pantoprazole Sodium) 40 Mg Tablet.dr, 40 MG PO QHS, (Reported) Pregabalin (Lyrica) 200 Mg Capsule, 200 MG PO TID, (Reported) Vit,Calc76/Iron/Folic (Prenatabs Rx Tablet) 1 Each Tablet, 1 TAB PO DAILY, (Reported) Quetiapine Fumarate (Quetiapine Fumarate) 50 Mg Tablet, 150 MG PO QHS, (Reported ) Rosuvastatin Calcium (Crestor) 10 Mg Tablet, 10 MG PO DAILY, (Reported) Scheduled PRN Acetaminophen (Acetaminophen) 325 Mg Tablet, 650 MG PO Q6H PRN for FEVER, (Reported) Albuterol Sulfate (Proair Hfa) 8.5 Gm Hfa.aer.ad, 2 PUFF INH QID PRN for SHORTNESS OF BREATH, (Reported) Baclofen (Baclofen) 10 Mg Tablet, 10 MG PO DAILY PRN for MUSCLE SPASMS, (Reported) Buspirone HCl (Buspirone HCl) 15 Mg Tablet, 15 MG PO QID PRN for ANXIETY, (Reported) Guaifenesin/Dextromethorphan (Mucinex Dm ER 600-30 mg Tablet) 1 Each Tab.er.12h, 1 TAB PO BID PRN for CONGESTION, (Reported) Lidocaine (Lidocaine) 120 Gm Oint...g., 1 APLCT TOP DAILY PRN for PAIN, (Reported) APPLY TO RIGHT SHOULDER, NECK Miconazole Nitrate (Miconazole Nitrate) 45 Gm Cream.appl, 1 APLCT TOP DAILY PRN for RASH/ITCHING, (Reported) APPLIES TO LABIA Naloxone HCl (Narcan) 4 Mg Kingman, 4 MG NA ASDIRECTED PRN for OVERDOSE, (Reported) Polyvinyl Alcohol (Polyvinyl Alcohol Eye Drops) 15 Ml Drops, 1 DROP OU TID PRN for DRY EYES, (Reported) Quetiapine Fumarate (Quetiapine Fumarate) 25 Mg Tablet, 25 MG PO DAILY PRN for ANXIETY, (Reported) Allergies Coded Allergies: lamotrigine (Verified Allergy, Mild, RASH, 12/13/19) Kiwi (Verified Allergy, Unknown, 06/24/17) Past Medical History Medical History 1. Hypertension 2. Diabetes mellitus 3. Insomnia 4. Fibromyalgia 5. Lupus Surgical History 1. Sinus surgery 2. Cholecystectomy 3. Gastric bypass 4. Partial hysterectomy Family History Father: Diabetes mellitus, Heart disease Mother: Diabetes mellitus, Heart disease Social History * Smoker: non-smoker Alcohol: Denies Drugs: denies A-FIB/CHADSVASC A-FIB History Current/History of A-Fib/PAF?: No Review of Systems Constitutional: Reports: Fever (at home), Weakness, Other (no chills, but felt cold) Eyes: Denies: Vision change ENT: Denies: Sore Throat Skin: Denies: Rash Pulmonary: Reports: Dyspnea, Cough (Productie with yellow sputum) Cardiovascular: Denies: Chest Pain Gastrointestinal: Denies: Nausea, Abdominal Pain, Diarrhea, Constipation Genitourinary: Denies: Dysuria Hematologic: Denies: Bruising Neurological: Denies: Numbness Psych: Reports: Anxiety, Depression Physical Examination General Exam: Positive: Alert, Cooperative, Mild Distress Eye Exam: Positive: EOMI; Negative: Sclera icteric ENT Exam: Positive: Atraumatic Neck Exam: Positive: Supple Chest Exam: Positive: Clear to auscultation; Negative: Rales, Rhonchi, Wheezing Heart Exam: Positive: Rate Normal, Regular Rhythm Abdomen Exam: Positive: Normal bowel sounds, Soft; Negative: Tenderness Extremity Exam: Positive: Edema (bilateral pitting edema) Neuro Exam: Positive: Cranial Nerves 3-12 NL Psych Exam: Positive: Mental status NL, Mood NL Vital Signs Vital Signs Date Time Temp Pulse Resp B/P (MAP) Pulse Ox O2 Delivery O2 Flow Rate FiO2 05/31/20 19:17 20 05/31/20 18:15 81 141/78 (99) 92 Room Air 05/31/20 17:39 97.8 Laboratory Data Labs 24H Laboratory Tests 2 05/31/20 15:10: Immature Granulocyte % (Auto) 0.7, Neutrophils (%) (Auto) 82.3H, Lymphocytes (%) (Auto) 10.5L, Monocytes (%) (Auto) 5.6H, Eosinophils (%) (Auto) 0.6, Basophils (%) (Auto) 0.3, Neutrophils # (Auto) 13.1H, Lymphocytes # (Auto) 1.7, Monocytes # (Auto) 0.9H, Eosinophils # (Auto) 0.1, Basophils # (Auto) 0.0, Nucleated Red Blood Cells % (auto) 0.0, Prothrombin Time 12.6, Prothromb Time International Ratio 0.92, Anion Gap 9, Glomerular Filtration Rate > 60.0, Lactic Acid Level 1.2, Calcium Level 8.3L, Total Bilirubin 1.2H, Direct Bilirubin 0.3H, Aspartate Amino Transf (AST/SGOT) 40H, Alanine Aminotransferase (ALT/SGPT) 147H, Alkaline Phosphatase 99, Total Creatine Kinase 31, Creatine Kinase MB < 1.0, Creatine Kinase MB Relative Index 3.23, Troponin I < 0.02, EQ-Jhg-Q-Type Natriuretic Peptide 310H, Total Protein 6.0L, Albumin 3.1L, Albumin/Globulin Ratio 1.1L, Thyroid Stimulating Hormone (TSH) 0.558, Thyroxine (T4) 7.0 CBC/BMP Laboratory Tests 05/31/20 15:10 Microbiology Microbiology 05/31/20 Respiratory Virus Panel (PCR) (LELIA) - Final, Complete 05/31/20 Blood Culture, Received Pending 05/31/20 Blood Culture, Received Pending Assessment/Plan Mrs. Craig is a 49 year old female with recurrent pneumonia and Lupus who is here for fever, dyspnea, and productive cough. CT demonstrates ground glass worse than 05/06/2020, but better than 10/2019. ED spoke with Dr. Alonso. Recommended to treat as CAP, and Dr. Alonso will see in the morning. Plan / VTE VTE Prophylaxis Ordered?: Yes Plan Plan 1. Pneumonia -History of recurrent pneumonia, on immunosuppressives for Lupus -Fever (at home), productive cough, dyspnea, and leukocytosis -Currently at room air, may need to test oxygen with ambulation -Pulmonary, Dr. Alonso, to see in morning -Ceftriaxone and azithromycin -Sputum culture, legionella, strep pneumo ordered -Blood cultures x2 pending -Respiratory virus panel negative 2. Diabetes mellitus -Hold metformin, Jardiance, and Bydureon, and continue basal insulin -Start sliding scale insulin -carbohydrate consistent diet 3. Fibromyalgia -Continue pain control regimen 4. Hypertension -Continue Lisinopril and Toprol XL 5. HLD -Continue Crestor 6. DVT ppx -Lovenox JAIDEN KELLER DO May 31, 2020 21:33
[2020-05-31 22:43] VITALS: BP 137/81
[2020-05-31] MEDS: guaiFENesin ER 600 MG TAB PO SCH (23:00)
[2020-05-31] MEDS: PREGABALIN 100 MG CAP (LYRICA) PO SCH (23:01)
[2020-05-31] MEDS: PANTOPRAZOLE 40MG TAB (PROTONIX) PO SCH (23:01)
[2020-05-31] MEDS: BENZONATATE 100 MG CAP PO SCH (23:01)
[2020-05-31] MEDS: oxyBUTYnin *DITROPAN XL* 5 MG TABCR PO SCH (23:01)
[2020-05-31] MEDS: QUEtiapine FUMARATE 50MG TAB PO SCH (23:01)
[2020-05-31] MEDS: BACLOFEN 10 MG TAB PO SCH (23:02)
[2020-05-31] MEDS: METOPROLOL SUCC *XL* 25MG TAB (TopROL *XL*) PO SCH (23:03)
[2020-05-31] MEDS: oxyCODONE 5MG TAB PO SCH (23:03)
[2020-06-01] MEDS: oxyCODONE 5MG TAB PO SCH ×5 (05:43→20:02)
[2020-06-01 06:00] VITALS: BP 131/79
[2020-06-01 07:06] LABS: HEMATOCRIT 36.7 % (36.0-47.0); HEMOGLOBIN 12.3 g/dl (12.0-15.5); MEAN CORPUSCULAR HEMOGLOBIN 32.2 pg (27.0-33.0); MEAN CORPUSCULAR HGB CONC 33.5 g/dl (32.0-36.5); MEAN CORPUSCULAR VOLUME 96.1 fl (80.0-96.0); PLATELET COUNT, AUTOMATED 191 10^3/uL (150-450); RED BLOOD COUNT 3.82 10^6/uL (4.00-5.40); WHITE BLOOD COUNT 8.2 10^3/uL (4.0-10.0)
[2020-06-01 07:36] LABS: ALBUMIN 2.6 GM/DL (3.2-5.2); ALT/SGPT 103 U/L (12-78); BILIRUBIN,TOTAL 1.5 MG/DL (0.2-1.0); BLOOD UREA NITROGEN 13 MG/DL (7-18); CALCIUM LEVEL 8.7 MG/DL (8.5-10.1); CARBON DIOXIDE LEVEL 27 MEQ/L (21-32); CHLORIDE LEVEL 108 MEQ/L (98-107); GLOMERULAR FILTRATION RATE > 60.0 (>51); GLUCOSE, FASTING 121 MG/DL (70-100); POTASSIUM SERUM 3.5 MEQ/L (3.5-5.1); SODIUM LEVEL 143 MEQ/L (136-145); TOTAL PROTEIN 5.8 GM/DL (6.4-8.2)
[2020-06-01] MEDS: HumaLOG INSULIN (NovoLOG) PER UNIT SC SCH ×4 (08:35→20:03)
[2020-06-01] MEDS: LACTOBACILLUS ACIDOPHILUS CAP (BACID) PO SCH (08:35)
[2020-06-01] MEDS: ROSUVASTATIN 10 MG TAB (CRESTOR) PO SCH (08:35)
[2020-06-01] MEDS: CelecoXIB (CeleBREX) 100 MG CAP PO SCH (08:36)
[2020-06-01] MEDS: CETIRIZINE (ZyrTEC) 10 MG TAB PO SCH (08:36)
[2020-06-01] MEDS: BENZONATATE 100 MG CAP PO SCH ×3 (08:36→20:01)
[2020-06-01] MEDS: guaiFENesin ER 600 MG TAB PO SCH ×2 (08:36→20:00)
[2020-06-01] MEDS: DULoxetine 30 MG CAP (CYMBALTA) PO SCH (08:36)
[2020-06-01] MEDS: PREGABALIN 100 MG CAP (LYRICA) PO SCH ×3 (08:36→20:00)
[2020-06-01] MEDS: ENOXAPARIN 40MG/0.4ML SYRINGE (J1650 PER 10MG) SC SCH (08:37)
[2020-06-01] MEDS: LEVEMIR (INSULIN DETEMIR) 1 UNITS/0.01ML SC SCH (08:37)
[2020-06-01] MEDS: lisinopriL 5 MG TAB PO SCH (08:38)
[2020-06-01] MEDS ORDERED: predniSONE 20 MG TAB PO ONE (11:00)
--- NOTE | 2020-06-01 11:09 | IPNPDOC ---
Text Note Date of Service The patient was seen on 06/01/20. NOTE Subjective: Patient stated that shortness of breath resolved, she was afebrile overnight Objective: GENERAL APPEARANCE: NAD HEENT: no scleral icterus, no JVD, EOMI CARDIOVASCULAR: S1S2 LUNGS: Diminished lung sounds bilaterally ABDOMEN: soft & not tender w palpitation MUSCULOSKELETAL: no cyanosis, no swelling INTEGUMENT: no generalized pallor NEUROLOGICAL: cranial nerve function from 2-12 intact intact, follows commands, speech not dysarthric Assessment and plan Mrs. Craig is a 49 year old female with recurrent pneumonia and Lupus who is here for fever, dyspnea, and productive cough. CT demonstrates ground glass worse than 05/06/2020, but better than 10/2019. Community-acquired pneumonia Recurrent, most likely secondary to immunosuppressive therapy for lupus Patient had fever, cough, dyspnea and leukocytosis at home Continue ceftriaxone and azithromycin Await sputum culture Blood culture pending Incentive spirometry Prednisone 40 mg Diabetes type 2 Insulin sliding scale Diabetes diet Fibromyalgia Continue home meds Hypertension Blood pressures under control Continue home cardioprotective medications Hyperlipidemia Continue statin VS,Fishbone, I+O VS, Fishbone, I+O Laboratory Tests 05/31/20 15:10 06/01/20 06:55 Vital Signs Date Time Temp Pulse Resp B/P (MAP) Pulse Ox O2 Delivery O2 Flow Rate FiO2 06/01/20 09:07 15 06/01/20 08:38 129/81 06/01/20 06:13 Room Air 06/01/20 06:00 98.0 79 94 I&O- Last 24 Hours up to 6 AM 06/01/20 06:00 Intake Total 485 ml Output Total 150 ml Balance 335 ml BOBBI BARRIGA DO Jun 01, 2020 11:09
--- NOTE | 2020-06-01 13:09 | CR ---
CONSULTATION DATE: 06/01/2020 INDICATION FOR CONSULTATION: Abnormal chest CT. REQUESTING PROVIDER: Dr. JAIDEN KELLER and BOBBI BARRIGA DO HISTORY OF PRESENT ILLNESS: Radha is a very pleasant 49-year-old nonsmoker who presented to the hospital after she was seen at the COVID clinic. She has had a cough for approximately 2-3 days and the woke up yesterday morning having a fever, felt cold but did not have any shaking chills and had some increase in shortness of breath. She called her provider who had her screened for COVID. When she presented to the COVID clinic they called an ambulance because of her shortness of breath. Overall, she states she has been prone to bronchitis her whole life. She is on chronic immunosuppression with Belimumab for her lupus. She is followed by Dr. Wilson in [place]. She states she also takes a Medrol Dosepak at the beginning of every month and did take this at the beginning of May for a five day course. For the most part she has not had recurrent pneumonias but had one other pneumonia in October which she states was sepsis. CT scan imaging was reviewed as outlined below from this visit along with sputum cultures which grew E. coli pneumonia. She states she believes it is from aspirin. She has reflux with sleep. She wakes up with gastric contents in the back of her throat. She does eat close to bedtime, sometimes snacks close to bedtime. She denies having any rash. She has had no recent flare of her lupus. She denies any urinary discomfort. She has had no uveitis or iritis. She has noticed no lymphadenopathy. She does have a cough which is productive of what she describes as mar mucous and intermittently productive. There has been no hemoptysis. She denies any epistaxis. She has had no change in weight. PAST MEDICAL HISTORY: 1. Lupus diagnosed in 2016 with chronic immunosuppression on Belimumab followed by Katie at [facility] with chronic Medrol intermittent use. 2. Hypertension. 3. Diabetes. 4. Gastric bypass. 5. Chronic pain. 6. Irritable bowel syndrome. CURRENT MEDICATIONS: 1. Oxycodone. 2. Protonix. 3. Lyrica. 4. Seroquel. 5. Tessalon. 6. Baclofen. 7. BuSpar. 8. Levemir. 9. Bacid. 10.Lispro sliding scale. 11.Tylenol. 12.Baclofen. 13.Toprol XL. 14.Ditropan XL. 15.Azithromycin. 16.Ceftriaxone. 17.Lovenox. 18.Celebrex. 19.Zyrtec. 20.Cymbalta. 21.Prinivil. 22.Crestor. SOCIAL HISTORY: The patient lives with her and two adult daughters. She is a nonsmoker. She has no vaping. She denies any inhalational exposure. She denies any illicit drug use. No significant alcohol exposures. She does not work recurrently because of medical reasons. 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. She was born and raised in [place], [place]. FAMILY HISTORY: She denies a family history of lung disease, mother and sister with lupus. There is no family history of interstitial lung disease or pulmonary fibrosis that she is aware of. REVIEW OF SYSTEMS: General: The patient has had no significant change in weight. She has had fevers as mentioned above, not documented as to what the temperature was. No shaking chills but has felt cold. HEENT: She has had no change in vision. No jaw pain. No recent dental abscess. No epistaxis. No difficulty swallowing. Cardiac: No history of angina. No symptoms of claudication. No PND or orthopnea. Pulmonary: No symptoms of pleurisy. No history of tuberculosis or tuberculosis exposures. Otherwise, as mentioned in the HPI. GI: She has chronic intermittent diarrhea she states from her IBS, this is unchanged. She has had no blood in her stool. No nausea or vomiting or known GI symptoms. : No burning or pain with urination. No history of nephrolithiasis. Neurologic: She does have occasional balance issues. She described secondary to her chronic pain but she has had no history of seizures or stroke. No unilateral weakness. No presyncope or syncopal episodes. Psych: No depression or anxiety. No mood instability. No suicidal or homicidal ideation. Integumentary: She denies any new rashes, no jaundice or bruising. No history of eczema. She states she has had a normal sleep test approximately six years ago. Does have some excessive daytime fatigue, has been known to snore. PHYSICAL EXAMINATION: VITAL SIGNS: Temperature is 98.0, pulse is 79, respiratory rate is 15, blood pressure is 129/81 with an oxygen saturation of 94% on room air. GENERAL: Awake, alert and oriented. Affect and mood are appropriate. Nutrition and hygiene are good. HEENT: Oral and nasal mucosa pink and moist without lesions. Mallampati 4. Pupils are equal and reactive to light. Mucous membranes are moist. There is no conjunctival injection. NECK: Supple. No tracheal deviation or mass. LYMPH: No cervical, supraclavicular or axillary adenopathy. CARDIAC: Regular S1 and S2 without audible murmur, rub or gallop. No elevated JVP. There is minimal pedal edema present. PULMONARY: Clear to auscultation without rales, rhonchi or wheezes. No dullness to percussion. No accessory muscle use. ABDOMEN: Obese, soft, nontender and nondistended. No hepatosplenomegaly, masses or hernias. EXTREMITIES: No cyanosis, clubbing or edema. SKIN: Pale without rashes, jaundice or bruising. MUSCULOSKELETAL: Normal muscle tone. No evidence of unilateral weakness. No joint effusions. LABORATORY DATA: White count is 8.2, hemoglobin is 12.3, platelet count 191,000, sodium 143, potassium 3.5, chloride 108, bicarbonate 27, BUN 13, creatinine is 0.6 and glucose of 121. Total bilirubin is 1.5, albumin is 2.6. INR is 0.92. Viral panel was negative including negative for COVID. As mentioned above, the sputum from 11/[address] showed [address] Chest CT from 11/16/2019 shows a left sided predominant infiltrate which is much more dense than the one seen most recently. She also had a chest CT on 05/06/[address] yesterday 05/31/2020 which shows faint ground-glass opacities more prominent on the right. Slightly more prominent on the 05/31 film than on the 05/06 film. There are no masses, lesions or abscess. No significant adenopathy. No significant cardiomegaly. No evidence of pleural effusions. I personally reviewed these chest CTs. IMPRESSION: 1. Abnormal chest CT with wide differential on a patient who has chronic immunosuppression and lupus. Most likely I do believe this is related to infection. She is having symptoms of aspiration. She has had prior E. coli pneumonia. This could potentially be aspiration pneumonitis and therefore recommend antibiotic therapy. Her oxygen saturation and clinical picture is such that this could be treated at home. However, because of her immunosuppression, a fungal infection could be causing these abnormalities and therefore fungal titers should be obtained. I agree with obtaining sputum culture. Will also obtain sputum culture for PCP. As far as all other potential causes of these minimal ground-glass infiltrates, this could be the start of interstitial lung disease, however she is currently on immunosuppression without any extrapulmonary manifestations of lupus flare. She does require follow-up CT as I cannot rule out interstitial lung disease at this point in time but would not add immunosuppression especially in the face of potential infection. She should follow-up in one month in my office to review chest CT and if there are persistent abnormalities would recommend performing bronchoscopy BAL to rule out infection with biopsy to look for interstitial lung disease. Of course, alveolar hemorrhage remains on the differential and unlikely because she is not having any hemoptysis. She is on Celebrex which does increase that risk somewhat. She has no history of ANCA vasculitis. Thank you for this consultation. I look forward to seeing the patient in follow-up. The patient can be discharged when clinically stable based on the primary team's evaluation. EVANS
[2020-06-01 13:33] VITALS: BP 126/76
[2020-06-01] MEDS ORDERED: HumuLIN R (REGULAR) INSULIN (NovoLIN R) **100U/ML** PER UNIT SC STA (13:42)
[2020-06-01 14:00] VITALS: BP 126/76
[2020-06-01] MEDS: oxyBUTYnin *DITROPAN XL* 5 MG TABCR PO SCH (20:00)
[2020-06-01] MEDS: BACLOFEN 10 MG TAB PO SCH (20:01)
[2020-06-01] MEDS: QUEtiapine FUMARATE 50MG TAB PO SCH (20:01)
[2020-06-01] MEDS: PANTOPRAZOLE 40MG TAB (PROTONIX) PO SCH (20:01)
[2020-06-01] MEDS: METOPROLOL SUCC *XL* 25MG TAB (TopROL *XL*) PO SCH (20:01)
[2020-06-01] MEDS ORDERED: LEVEMIR (INSULIN DETEMIR) 1 UNITS/0.01ML SC SCH (21:00)
[2020-06-01] MEDS ORDERED: cefTRIAXone SOD 1 GM in D5W MINI-BAG PLUS 50 ML IV SCH (21:00)
[2020-06-01 22:00] VITALS: BP 113/65
[2020-06-01] MEDS: IPRATROPIUM 0.03% NASAL SPRAY 30 ML (ATROVENT) SCH (22:00)
[2020-06-01] MEDS ORDERED: AZITHROMYCIN INJ 500 MG, VIAL MATE ADAPTER 1 EACH in D5W 250 ML IV SCH (22:00)
[2020-06-02] MEDS: oxyCODONE 5MG TAB PO SCH ×3 (05:49→13:00)
[2020-06-02 06:00] VITALS: BP 130/73
[2020-06-02 06:30] LABS: HEMATOCRIT 38.3 % (36.0-47.0); HEMOGLOBIN 12.7 g/dl (12.0-15.5); MEAN CORPUSCULAR HEMOGLOBIN 32.1 pg (27.0-33.0); MEAN CORPUSCULAR HGB CONC 33.2 g/dl (32.0-36.5); MEAN CORPUSCULAR VOLUME 96.7 fl (80.0-96.0); PLATELET COUNT, AUTOMATED 213 10^3/uL (150-450); RED BLOOD COUNT 3.96 10^6/uL (4.00-5.40); WHITE BLOOD COUNT 8.7 10^3/uL (4.0-10.0)
[2020-06-02 06:51] LABS: ALBUMIN 2.7 GM/DL (3.2-5.2); ALT/SGPT 90 U/L (12-78); BILIRUBIN,TOTAL 0.8 MG/DL (0.2-1.0); BLOOD UREA NITROGEN 14 MG/DL (7-18); CALCIUM LEVEL 8.6 MG/DL (8.5-10.1); CARBON DIOXIDE LEVEL 28 MEQ/L (21-32); CHLORIDE LEVEL 111 MEQ/L (98-107); CREATININE FOR GFR 0.59 MG/DL (0.55-1.30); GLOMERULAR FILTRATION RATE > 60.0 (>51); GLUCOSE, FASTING 133 MG/DL (70-100); SODIUM LEVEL 146 MEQ/L (136-145); TOTAL PROTEIN 5.8 GM/DL (6.4-8.2)
[2020-06-02] MEDS: HumaLOG INSULIN (NovoLOG) PER UNIT SC SCH ×2 (08:01→12:00)
[2020-06-02] MEDS: LEVEMIR (INSULIN DETEMIR) 1 UNITS/0.01ML SC SCH (08:01)
[2020-06-02] MEDS: ENOXAPARIN 40MG/0.4ML SYRINGE (J1650 PER 10MG) SC SCH (08:02)
[2020-06-02] MEDS: LACTOBACILLUS ACIDOPHILUS CAP (BACID) PO SCH (08:03)
[2020-06-02] MEDS: guaiFENesin ER 600 MG TAB PO SCH (08:03)
[2020-06-02] MEDS: BENZONATATE 100 MG CAP PO SCH (08:03)
[2020-06-02] MEDS: ROSUVASTATIN 10 MG TAB (CRESTOR) PO SCH (08:03)
[2020-06-02] MEDS: PREGABALIN 100 MG CAP (LYRICA) PO SCH (08:03)
[2020-06-02] MEDS: CETIRIZINE (ZyrTEC) 10 MG TAB PO SCH (08:03)
[2020-06-02] MEDS: CelecoXIB (CeleBREX) 100 MG CAP PO SCH (08:03)
[2020-06-02] MEDS: DULoxetine 30 MG CAP (CYMBALTA) PO SCH (08:03)
[2020-06-02 08:04] VITALS: BP 128/73
[2020-06-02] MEDS: lisinopriL 5 MG TAB PO SCH (08:04)
[2020-06-02] MEDS ORDERED: predniSONE 20 MG TAB PO SCH (09:00)
[2020-06-02] MEDS ORDERED: AUGM875T28 PO ×2 (09:43→15:17)
[2020-06-02] MEDS ORDERED: DOXY-350 PO ×2 (09:43→15:17)
[2020-06-02] MEDS ORDERED: PRED20TA PO ×2 (09:43→15:17)
--- NOTE | 2020-06-02 10:43 | DS.PDOC ---
Discharge Summary General Date of Admission May 31, 2020 at 14:49 Date of Discharge 06/02/20 Discharge Summary PROCEDURES PERFORMED DURING STAY: [None]. ADMITTING DIAGNOSES: Community-acquired pneumonia Diabetes type 2 Fibromyalgia Hypertension Lupus Hyperlipidemia DISCHARGE DIAGNOSES: Community-acquired pneumonia Diabetes type 2 Fibromyalgia Hypertension Lupus Hyperlipidemia COMPLICATIONS/CHIEF COMPLAINT: Dyspnea,Pneumonia. HISTORY OF PRESENT ILLNESS: 49-year-old nonsmoker who presented to the hospital after she was seen at the COVID clinic. She has had a cough for approximately 2-3 days and the woke up yesterday morning having a fever, felt cold but did not have any shaking chills and had some increase in shortness of breath. She called her provider who had her screened for COVID. When she presented to the COVID clinic they called an ambulance because of her shortness of breath. Overall, she states she has been prone to bronchitis her whole life. She is on chronic immunosuppression with Belimumab for her lupus. She is followed by Dr. Wilson in [place]. She states she also takes a Medrol Dosepak at the beginning of every month and did take this at the beginning of May for a five day course. For the most part she has not had recurrent pneumonias but had one other pneumonia in October which she states was sepsis. CT scan imaging was reviewed as outlined below from this visit along with sputum cultures which grew E. coli pneumonia. She states she believes it is from aspirin. She has reflux with sleep. She wakes up with gastric contents in the back of her throat. She does eat close to bedtime, sometimes snacks close to bedtime. She denies having any rash. She has had no recent flare of her lupus. She denies any urinary discomfort. She has had no uveitis or iritis. She has noticed no lymphadenopathy. She does have a cough which is productive of what she describes as mar mucous and intermittently productive. There has been no hemoptysis. She denies any epistaxis. She has had no change in weight. HOSPITAL COURSE: During hospital stay following issues addressed Community-acquired pneumonia Recurrent, most likely secondary to immunosuppressive therapy for lupus Patient had fever, cough, dyspnea and leukocytosis at home Patient received ceftriaxone and azithromycin Blood culture negative Incentive spirometry Prednisone 40 mg Diabetes type 2 Insulin sliding scale Diabetes diet Fibromyalgia Continue home meds Hypertension Blood pressures under control Continue home cardioprotective medications Hyperlipidemia Continue statin DISCHARGE MEDICATIONS: Please see below. ALLERGIES: Please see below. PHYSICAL EXAMINATION ON DISCHARGE: VITAL SIGNS: Please see below. GENERAL APPEARANCE: NAD HEENT: no scleral icterus, no JVD, EOMI CARDIOVASCULAR: S1S2 LUNGS: Diminished lung sounds bilaterally ABDOMEN: soft & not tender w palpitation MUSCULOSKELETAL: no cyanosis, no swelling INTEGUMENT: no generalized pallor NEUROLOGICAL: cranial nerve function from 2-12 intact intact, follows commands, speech not dysarthric LABORATORY DATA: Please see below. IMAGING: [facility] NAME: CLINTON HAN DATE OF : 1970 AGE: 49 SEX: F REPORT #: [id number] ROOM: ED TECHNOLOGIST: [id number] DOCTOR: GLADYS BARTON MD Ordered for Date&Time: 05/31/20 1510 cc: [~ rep ct ivnm] Service Date&Time: 05/31/20 1645 This report is in Signed status. If this report is in a DRAFT status it has not yet been reviewed by the radiologist for accuracy. Thank you for having your radiology procedures performed at [facility] RADIOLOGY REPORT Date&Time printed: [~ rep prt dt last] [~ rep prt tm last] Page 2 of 2 [place] [address] RADIOLOGY REPORT This report is in Signed status. If this report is in a DRAFT status it has not yet been reviewed by the radiologist for accuracy. Thank you for having your radiology procedures performed at [facility] RADIOLOGY REPORT Date&Time printed: [~ rep prt dt last] [~ rep prt tm last] Page 1 of 2 INDICATION: DYSPNEA/COUGH. COMPARISON: Comparison chest CT studies are from 06 May 2020, November 16, 2019, and November 13, 2019.. TECHNIQUE: Helical scanning is acquired. 3 mm axial images are generated. Coronal and sagittal MPR and coronal MIP images are generated. FINDINGS: There are multifocal patchy areas of predominantly peripheral ground-glass opacity in the lung prasad bilaterally, right more numerous than left. These are consistent with inflammatory changes, including viral pneumonia. Commonly reported imaging features of COVID 19 pneumonia are present. Other processes such as influenza pneumonia, drug toxicity, and connective tissue disease can produce a similar pattern. There is no evidence of pleural effusion or pericardial effusion. No hilar or mediastinal mass or adenopathy is observed. Patient is status post gastric bypass. Gallbladder surgically absent as well. The visualized upper abdominal structures are otherwise unremarkable. IMPRESSION: Patchy areas of inflammatory ground-glass opacity is seen scattered about the lung prasad bilaterally, right more so than left. Question viral pneumonia. These are similar to but more extensive than the changes from 06 May 2020 and much less extensive than the lung disease seen in October of 2019. <Electronically signed by Stef Maldonado > 05/31/201706 DD: Blair Maldonado MD 05/31/201656 DT: YOEL 05/31/201706 DS: MAGALI 05/31/20165605/31/201656 [~ rep ct labl] PROGNOSIS: Fair ACTIVITY: [As tolerated]. DIET: Cardiac DISPOSITION: Home . 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 TIME SPENT ON DISCHARGE: 40 minutes. Vital Signs/I&Os Vital Signs Date Time Temp Pulse Resp B/P (MAP) Pulse Ox O2 Delivery O2 Flow Rate FiO2 06/02/20 08:48 15 06/02/20 08:04 128/73 06/02/20 06:00 97.5 66 92 Room Air I&O- Last 24 Hours up to 6 AM 06/02/20 06:00 Intake Total 2640 ml Output Total 6550 ml Balance -3910 ml Laboratory Data Labs 24H Laboratory Tests 2 06/01/20 12:01: Bedside Glucose (Misc Panel) 179H 06/01/20 13:30: Bedside Glucose (Misc Panel) 395H 06/01/20 16:44: Bedside Glucose (Misc Panel) 211H 06/01/20 19:44: Bedside Glucose (Misc Panel) 428H 06/02/20 05:53: Nucleated Red Blood Cells % (auto) 0.0, Anion Gap 7L, Glomerular Filtration Rate > 60.0, Calcium Level 8.6, Total Bilirubin 0.8, Aspartate Amino Transf (AST/SGOT) 18, Alanine Aminotransferase (ALT/SGPT) 90H, Alkaline Phosphatase 88, Total Protein 5.8L, Albumin 2.7L, Albumin/Globulin Ratio 0.9L CBC/BMP Laboratory Tests 06/02/20 05:53 FSBS Laboratory Tests Test 06/01/20 12:01 06/01/20 13:30 06/01/20 16:44 06/01/20 19:44 Range/Units Bedside Glucose (Misc Panel) 179 395 211 428 70-105 MG/DL Microbiology Microbiology 05/31/20 Gram Stain - Final, Resulted 05/31/20 Sputum Culture, Resulted Pending 05/31/20 Respiratory Virus Panel (PCR) (LELIA) - Final, Complete 05/31/20 Blood Culture - Preliminary, Resulted No growth after 24 hours . All specim... 05/31/20 Blood Culture - Preliminary, Resulted No growth after 24 hours . All specim... Discharge Medications Scheduled Amoxicillin/Potassium Clav (Augmentin 875-125 Tablet) 1 Each Tablet, 1 TAB PO BID Baclofen (Baclofen) 10 Mg Tablet, 20 MG PO QHS, (Reported) Belimumab (Benlysta) 200 Mg/1 Ml Auto.injct, 200 MG SC QWEEK, (Reported) SUNDAYS Calcium Carbonate/Vitamin D3 (Oyster Shell 500-Vit D3 200 Tb) 1 Each Tablet, 1 TAB PO DAILY, (Reported) Celecoxib (Celebrex) 200 Mg Capsule, 200 MG PO DAILY, (Reported) Cetirizine HCl (Cetirizine HCl) 10 Mg Tablet, 10 MG PO DAILY, (Reported) Cholecalciferol (Vitamin D3) (Vitamin D3) 125 Mcg Capsule, 125 MCG PO QWEEK, (Reported) FRIDAYS Doxycycline Monohydrate (Doxycycline) 100 Mg Capsule, 100 MG PO BID Duloxetine Hcl (Duloxetine HCl) 30 Mg Capsule.dr, 30 MG PO DAILY, (Reported) Duloxetine Hcl (Duloxetine HCl) 60 Mg Capsule.dr, 60 MG PO DAILY, (Reported) Empagliflozin (Jardiance) 25 Mg Tablet, 25 MG PO DAILY, (Reported) Exenatide Microspheres (Bydureon) 2 Mg/0.65 Ml Pen.injctr, 2 MG SC QWEEK, (Reported) SUNDAYS Insulin Degludec (Tresiba Flextouch U-100) 100 Unit/1 Ml Insuln.pen, 42 UNIT SC DAILY, (Reported) Ipratropium Burns (Ipratropium Burns) 30 Ml [place], 2 SPRAY NARES QHS, (Reported) Lisinopril (Lisinopril) 5 Mg Tablet, 5 MG PO DAILY, (Reported) Metformin HCl (Metformin HCl) 500 Mg Tablet, 1,000 MG PO BID, (Reported) Metoprolol Succinate (Metoprolol Succinate) 25 Mg Tab.er.24h, 25 MG PO QHS, (Reported) Oxybutynin Chloride (Oxybutynin Chloride ER) 5 Mg Tab.er.24, 10 MG PO QHS, (Re ported) Oxycodone HCl (Oxycodone HCl) 5 Mg Tablet, 5 MG PO 5XD, (Reported) Pantoprazole Sodium (Pantoprazole Sodium) 40 Mg Tablet.dr, 40 MG PO QHS, (Reported) Prednisone (Prednisone) 20 Mg Tablet, 20 MG PO BID Pregabalin (Lyrica) 200 Mg Capsule, 200 MG PO TID, (Reported) Vit,Calc76/Iron/Folic (Prenatabs Rx Tablet) 1 Each Tablet, 1 TAB PO DAILY, (Reported) Quetiapine Fumarate (Quetiapine Fumarate) 50 Mg Tablet, 150 MG PO QHS, (Reported) Rosuvastatin Calcium (Crestor) 10 Mg Tablet, 10 MG PO DAILY, (Reported) Scheduled PRN Acetaminophen (Acetaminophen) 325 Mg Tablet, 650 MG PO Q6H PRN for FEVER, (Reported) Albuterol Sulfate (Proair Hfa) 8.5 Gm Hfa.aer.ad, 2 PUFF INH QID PRN for SHORTNESS OF BREATH, (Reported) Baclofen (Baclofen) 10 Mg Tablet, 10 MG PO DAILY PRN for MUSCLE SPASMS, (Reported) Buspirone HCl (Buspirone HCl) 15 Mg Tablet, 15 MG PO QID PRN for ANXIETY, (Reported) Guaifenesin/Dextromethorphan (Mucinex Dm ER 600-30 mg Tablet) 1 Each Tab.er.12h, 1 TAB PO BID PRN for CONGESTION, (Reported) Lidocaine (Lidocaine) 120 Gm Oint...g., 1 APLCT TOP DAILY PRN for PAIN, (Reported) APPLY TO RIGHT SHOULDER, NECK Miconazole Nitrate (Miconazole Nitrate) 45 Gm Cream.appl, 1 APLCT TOP DAILY PRN for RASH/ITCHING, (Reported) APPLIES TO LABIA Naloxone HCl (Narcan) 4 Mg [place], 4 MG NA ASDIRECTED PRN for OVERDOSE, (Reported) Polyvinyl Alcohol (Polyvinyl Alcohol Eye Drops) 15 Ml Drops, 1 DROP OU TID PRN for DRY EYES, (Reported) Quetiapine Fumarate (Quetiapine Fumarate) 25 Mg Tablet, 25 MG PO DAILY PRN for ANXIETY, (Reported) Allergies Coded Allergies: lamotrigine (Verified Allergy, Mild, RASH, 12/13/19) Kiwi (Verified Allergy, Unknown, 06/24/17) BOBBI BARRIGA DO Jun 02, 2020 10:43
[2020-06-02 13:29] VITALS: BP 118/78
[2020-06-04 15:07] LABS: BODY FLUID CULTURE Not indicated. (.); LEGIONELLA ANTIGEN URINE Negative (Negative); ORGANISM ID Not indicated. (.); SPECIMEN SOURCE Urine (.); URINE STREP PNEUMONIAE ANTIGEN Negative (Negative)
== END 2020-06-02 15:01 | disposition home or self-care (01) ==
LOC: EDBD 14:48 → M ED 14:48 → M ED INP 14:49 → M MSPAV 22:43
PROVIDERS: ADMIT Internal Medicine; ATTEND Internal Medicine
DX: J18.9 Pneumonia, unspecified organism (principal); B96.20 Unspecified Escherichia coli [E. coli] as the cause of diseases classified elsewhere; B95.61 Methicillin susceptible Staphylococcus aureus infection as the cause of diseases classified elsewhere; E11.9 Type 2 diabetes mellitus without complications; M79.7 Fibromyalgia; I10 Essential (primary) hypertension; M32.9 Systemic lupus erythematosus, unspecified; E78.49 Other hyperlipidemia; Z79.899 Other long term (current) drug therapy; Z79.84 Long term (current) use of oral hypoglycemic drugs; Z79.52 Long term (current) use of systemic steroids; Z79.4 Long term (current) use of insulin; Z98.84 Bariatric surgery status; Z91.018 Allergy to other foods; Z88.8 Allergy status to other drugs, medicaments and biological substances
CPT/HCPCS: 36415; 71045; 71250; 80048; 80053; 80076; 82550; 82553; 83605; 83880; 84145; 84436; 84443; 84484; 85025; 85027; 85610; 87040; 87070; 87077; 87186; 87205; 87449; 87486; 87581; 87633; 87798; 87899; 88160; 88312; 92610; 93005; 93041; 94760; 96365; 96366; 96367; 96372; 99285; J0456; J0696; J1650

== ENCOUNTER 2020-06-26 11:20 | Inpatient (IN) | payer OTHER ==
[~2020-06-26] VITALS: Ht 162.6 cm; Wt 119.4 kg
[~2020-06-26 11:20] MED LIST changes: +ACET-908 PO; +BENL200I SC; +BUSP15TA47 PO; +BYDU1INJ SC; +CELE1CAP4 PO; +CETI-24 PO; +CRES10TA PO; +D-3-50003 PO; +DOXY-350 PO; +DULO1CAP6 PO; +GLYB2.5T7 PO; -GLYB25TA PO; +IPRA3SP NARES; +JARD1TAB3 PO; +LIDO5OIN19 TOP; +LISI-898 PO; +LYRI200C PO; +METF500T13 PO; +METO1TAB32 PO; +MICO2CRE TOP; +MUCI30TA5 PO; +NARC1SPR; +OXYB-54 PO; +OXYC-517; +OXYC-517 PO; +OYST500T11 PO; +PANT-23 PO; +POLY1.4S OU; +PRENTAB53 PO; +PROAAER10 INH; +QUET25TA3; +QUET25TA3 PO; +QUET50TA3 PO; +TRES1INJ2 SC
[2020-06-26] MEDS ORDERED: RIZA10TA58 PO (11:49)
[2020-06-26] MEDS ORDERED: NOVOINJ3 SQ (11:49)
[2020-06-26] MEDS ORDERED: ONDA4TAB6 SL (11:49)
[2020-06-26 12:31] LABS: BASO # 0.1 10^3/uL (0.0-0.2); BASO % 0.4 % (0.0-1.0); EOS # 0.1 10^3/uL (0.0-0.5); EOS % 0.5 % (0.0-3.0); HEMATOCRIT 42.4 % (36.0-47.0); LYMPH # 1.4 10^3/uL (1.5-5.0); LYMPH % 10.9 % (24.0-44.0); MEAN CORPUSCULAR HEMOGLOBIN 32.2 pg (27.0-33.0); MEAN CORPUSCULAR VOLUME 97.5 fl (80.0-96.0); MONO # 0.7 10^3/uL (0.0-0.8); MONO % 5.3 % (2.0-8.0); NEUTROPHILS # 10.3 10^3/uL (1.5-8.5); NEUTROPHILS % 82.4 % (36.0-66.0); PLATELET COUNT, AUTOMATED 181 10^3/uL (150-450); RED BLOOD COUNT 4.35 10^6/uL (4.00-5.40); WHITE BLOOD COUNT 12.6 10^3/uL (4.0-10.0)
--- NOTE | 2020-06-26 12:31 | REP ---
INDICATION: DYSPNEA/COUGH COMPARISON: 05/31/2020 TECHNIQUE: Portable AP view of the chest FINDINGS: The mediastinum and cardiac silhouette are stable and within normal limits for portable technique. Very subtle early opacity at the lateral left base cannot be excluded. Remainder of lung prasad are clear. No effusion. No pneumothorax. Skeletal structures intact. IMPRESSION: As above. Correlation with auscultation and physical examination recommended. <Electronically signed by Elias Black > 06/26/20 [id number]
[2020-06-26 12:45] LABS: INR 0.9; PROTHROMBIN TIME 12.3 SECONDS (12.5-14.3)
[2020-06-26 12:47] LABS: D-DIMER QUANT 495.64 ng/ml (<500)
[2020-06-26] MEDS ORDERED: oxyCODONE 5MG TAB PO ONE (12:50)
[2020-06-26 13:07] LABS: ALBUMIN 3.2 GM/DL (3.2-5.2); ALT/SGPT 166 U/L (12-78); BILIRUBIN,DIRECT 0.3 MG/DL (0.0-0.2); BILIRUBIN,TOTAL 1.2 MG/DL (0.2-1.0); BLOOD UREA NITROGEN 8 MG/DL (7-18); CALCIUM LEVEL 8.3 MG/DL (8.5-10.1); CARBON DIOXIDE LEVEL 30 MEQ/L (21-32); CHLORIDE LEVEL 106 MEQ/L (98-107); CK-MB VALUE MASS < 1.0 NG/ML (<3.6); CPK CREATINE PHOSPHOKINASE 36 U/L (26-192); CREATININE FOR GFR 0.73 MG/DL (0.55-1.30); GLOMERULAR FILTRATION RATE > 60.0 (>51); GLUCOSE, FASTING 170 MG/DL (70-100); MB/CK RELATIVE INDEX 2.78 (< OR =4); NT-PRO BNP 439 PG/ML (<125); SODIUM LEVEL 143 MEQ/L (136-145); THYROXINE (T4) 7.6 UG/DL (4.5-12.0); TROPONIN I < 0.02 NG/ML (< 0.10)
[2020-06-26 13:39] LABS: RSV AMPLIFICATION NEGATIVE (NEGATIVE)
[2020-06-26] MEDS ORDERED: ISOVUE-370 76% 100ML VIAL As Ordered ONE (13:47)
--- NOTE | 2020-06-26 14:33 | REP ---
INDICATION: shortness of breath COMPARISON: 05/31/2020 TECHNIQUE: Axial contrast enhanced images from the thoracic inlet to the upper abdomen using pulmonary embolus technique with multiplanar re-formations. 75 ml Isovue 370 intravenous contrast material administered without complication. This CT examination was performed using the following dose reduction techniques: Automated exposure control, adjustment of mA and/or kv according to the patient's size, and use of iterative reconstruction technique. FINDINGS: Examination is somewhat limited due to technical factors and respiratory motion. No pulmonary emboli are identified. Thoracic aorta is normal and without aneurysm or dissection. Heart is upper limits of normal in size without pericardial effusion. The lung prasad now demonstrate increased primarily left-sided airspace disease and improved right-sided opacities as compared to prior examination and again suggest viral pneumonia. No effusion. No pneumothorax. Tracheobronchial tree is patent. No significant adenopathy. IMPRESSION: 1. No evidence for pulmonary embolus. Normal thoracic aorta. 2. New moderate primarily left-sided airspace disease suggesting continued viral pneumonia. <Electronically signed by Elias Black > 06/26/20 [id number]
[2020-06-26] MEDS ORDERED: dexameTHASONE 20MG/5ML VIAL (J1100 PER 1MG) IV ONE (15:00)
[2020-06-26] MEDS ORDERED: cefTRIAXone SOD 2 GM in D5W MINI-BAG PLUS 50 ML IV ONE (15:00)
[2020-06-26] MEDS ORDERED: XIID5DRO OU (15:20)
[2020-06-26] MEDS ORDERED: SODIUM CHLORIDE 0.9% 1000ML IV ONE (16:00)
[2020-06-26] MEDS: PREGABALIN 100 MG CAP (LYRICA) PO SCH ×2 (16:00→21:30)
[2020-06-26] MEDS ORDERED: RIZATRIPTAN MLT 10 MG TAB PO PRN (16:05)
[2020-06-26] MEDS ORDERED: busPIRone 5 MG TAB PO PRN (16:05)
[2020-06-26] MEDS ORDERED: MICONAZOLE-7 VAGINAL 2% CREAM 47.7 GM TOP PRN (16:05)
[2020-06-26] MEDS ORDERED: ALBUTEROL 90 MCG/ACT 8GM HFA INHALER INH PRN (16:05)
[2020-06-26] MEDS ORDERED: LIDOCAINE 5% TOP PRN (16:05)
[2020-06-26] MEDS ORDERED: ACETAMINOPHEN TAB 650MG DOSE (2X325MG) PO PRN (16:05)
[2020-06-26] MEDS ORDERED: POLYVINYL ALCOHOL OPHTH SOLN 15 ML(LIQUITEARS) OU PRN (16:05)
[2020-06-26] MEDS ORDERED: BACLOFEN 10 MG TAB PO PRN (16:05)
[2020-06-26] MEDS ORDERED: LEVEMIR (INSULIN DETEMIR) 1 UNITS/0.01ML SC ONE (16:45)
--- NOTE | 2020-06-26 16:53 | HPEPDOC ---
General Date of Admission Jun 26, 2020 Date of Service: Jun 26, 2020 Chief Complaint The patient is a 49-year-old female admitted with a reason for visit of Chest Pain, Shortness Of Breath. Source: Patient History of Present Illness Mrs. Craig is a 49 year old female with Lupus on immunosuppressive medication here with dyspnea, cough with sputum production and chest pain. She was recently admitted on 05/31/2020 for frequent pneumonia and was seen by Dr. Alonso. Recommended treating it as CAP. Patient was to follow up in 4 weeks for re- evaluation and possible need for BAL with biopsy to look for other infection (like PCP), for possible alveolar hemorrhage, or for ILD. She was discharged with an antibiotic course and steroid taper which she finished about 7 to 10 days after admission. She was doing okay and had planned appointment on 07/16/[address] Alonso when she woke up with chills, chest pain, and dyspnea. Chest pain was across chest and describes it as alternating sharp and dull pain. Not pleuritic, but it was hard for her to take a deep breath. Ambulation/a ctivity did not make it worse. She took Percocet, which did make it better. She tells me that she has history of costochondritis. In addition to her dyspnea, she also reports having a productive cough. She does not know what it looks like, but in the sputum sample cup, it was a dark maroon color. She said she did drink cola which may have discolored her sputum, but she does take Celebrex which may put her at risk for alveolar hemorrhage. She came into the ED. At room air, she desaturated down to 88 and required 2L to maintain oxygenation. She had a low grade temp at 100.1. Lungs sounds were diminished, but otherwise clear. Labs were significant for leukocytosis of 12.6 and lactic acid of 2.3. Troponin was negative. COVID was negative. CT angio of chest was negative for PE, but demonstrates new moderate primarily left sided airspace disease. Patient will be admitted for CAP. Home Medications Scheduled Baclofen (Baclofen) 10 Mg Tablet, 20 MG PO QHS, (Reported) Belimumab (Benlysta) 200 Mg/1 Ml Auto.injct, 200 MG SC QWEEK, (Reported) MONDAYS Calcium Carbonate/Vitamin D3 (Oyster Shell 500-Vit D3 200 Tb) 1 Each Tablet, 1 TAB PO DAILY, (Reported) Celecoxib (Celebrex) 200 Mg Capsule, 200 MG PO DAILY, (Reported) Cetirizine HCl (Cetirizine HCl) 10 Mg Tablet, 10 MG PO DAILY, (Reported) Cholecalciferol (Vitamin D3) (Vitamin D3) 125 Mcg Capsule, 125 MCG PO QWEEK, (Reported) FRIDAYS Duloxetine Hcl (Duloxetine HCl) 30 Mg Capsule.dr, 30 MG PO DAILY, (Reported) Duloxetine Hcl (Duloxetine HCl) 60 Mg Capsule.dr, 60 MG PO DAILY, (Reported) Empagliflozin (Jardiance) 25 Mg Tablet, 25 MG PO DAILY, (Reported) Exenatide Microspheres (Bydureon) 2 Mg/0.65 Ml Pen.injctr, 2 MG SC QWEEK, (Reported) MONDAYS Insulin Aspart (Novolog Flexpen) 100 Unit/1 Ml Insuln.pen, 1 DOSE SQ AC, (Reported) PER SLIDING SCALE Insulin Degludec (Tresiba Flextouch U-100) 100 Unit/1 Ml Insuln.pen, 42 UNIT SC DAILY, (Reported) Ipratropium [place] (Ipratropium [place]) 30 Ml [place], 2 SPRAY NARES QHS, (Reported) Lifitegrast (Xiidra) 5% Droperette, 1 DROP OU QHS, (Reported) Lisinopril (Lisinopril) 5 Mg Tablet, 5 MG PO DAILY, (Reported) Metformin HCl (Metformin HCl) 500 Mg Tablet, 1,000 MG PO BID, (Reported) Metoprolol Succinate (Metoprolol Succinate) 25 Mg Tab.er.24h, 25 MG PO QHS, (Reported) Oxybutynin Chloride (Oxybutynin Chloride ER) 5 Mg Tab.er.24, 10 MG PO QHS, (Reported) Oxycodone HCl (Oxycodone HCl) 5 Mg Tablet, 5 MG PO 5XD, (Reported) Pantoprazole Sodium (Pantoprazole Sodium) 40 Mg Tablet.dr, 40 MG PO QHS, (Reported) Pregabalin (Lyrica) 200 Mg Capsule, 200 MG PO TID, (Reported) Vit,Calc76/Iron/Folic (Prenatabs Rx Tablet) 1 Each Tablet, 1 TAB PO DAILY, (Reported) Quetiapine Fumarate (Quetiapine Fumarate) 50 Mg Tablet, 150 MG PO QHS, (Reported) Rosuvastatin Calcium (Crestor) 10 Mg Tablet, 10 MG PO DAILY, (Reported) Scheduled PRN Acetaminophen (Acetaminophen) 325 Mg Tablet, 650 MG PO Q6H PRN for FEVER, (Reported) Albuterol Sulfate (Proair Hfa) 8.5 Gm Hfa.aer.ad, 2 PUFF INH QID PRN for SHORTNESS OF BREATH, (Reported) Baclofen (Baclofen) 10 Mg Tablet, 10 MG PO DAILY PRN for MUSCLE SPASMS, (Reported) Buspirone HCl (Buspirone HCl) 15 Mg Tablet, 15 MG PO QID PRN for ANXIETY, (Reported) Guaifenesin/Dextromethorphan (Mucinex Dm ER 600-30 mg Tablet) 1 Each Tab.er.12h, 1 TAB PO BID PRN for CONGESTION, (Reported) Lidocaine (Lidocaine) 120 Gm Oint...g., 1 APLCT TOP DAILY PRN for PAIN, (Reported) APPLY TO RIGHT SHOULDER, NECK Miconazole Nitrate (Miconazole Nitrate) 45 Gm Cream.appl, 1 APLCT TOP DAILY PRN for RASH/ITCHING, (Reported) APPLIES TO LABIA Naloxone HCl (Narcan) 4 Mg [place]ab[place], 4 MG NA ASDIRECTED PRN for OVERDOSE, (Reported) Ondansetron (Ondansetron Odt) 4 Mg Tab.rapdis, 4 MG SL TID PRN for NAUSEA OR VOMITING, (Reported) Polyvinyl Alcohol (Polyvinyl Alcohol Eye Drops) 15 Ml Drops, 1 DROP OU TID PRN for DRY EYES, (Reported) Rizatriptan Benzoate (Rizatriptan) 10 Mg Tab.rapdis, 10 MG PO BID PRN for MIGRAINE, (Reported) Allergies Coded Allergies: lamotrigine (Verified Allergy, Mild, RASH, 12/13/19) Kiwi (Verified Allergy, Unknown, 06/24/17) Past Medical History Medical History 1. Hypertension 2. Diabetes mellitus 3. Insomnia 4. Fibromyalgia 5. Lupus 6. Costochondritis Surgical History 1. Sinus surgery 2. Cholecystectomy 3. Gastric bypass 4. Partial hysterectomy Family History Father: Diabetes mellitus, Heart disease Mother: Diabetes mellitus, Heart disease Social History * Smoker: non-smoker Alcohol: Denies Drugs: denies A-FIB/CHADSVASC A-FIB History Current/History of A-Fib/PAF?: No Review of Systems Constitutional: Reports: Chills, Fever Eyes: Denies: Vision change ENT: Reports: Other Symptoms (Dry mouth); Denies: Sore Throat Skin: Reports: Rash (Malar rash, puppy scratched her legs) Pulmonary: Reports: Dyspnea, Cough (productive, but does not know what it looks like) Cardiovascular: Reports: Chest Pain (chest tightness with alternating sharp and dull, not worse with activity, better with Percocet) Gastrointestinal: Denies: Nausea, Abdominal Pain Genitourinary: Denies: Dysuria Hematologic: Denies: Bruising Musculoskeletal: Reports: Back Pain (chronic) Neurological: Denies: Other Symptoms (negative for paresthesias) Psych: Reports: Anxiety, Depression Physical Examination General Exam: Positive: Alert, Cooperative Eye Exam: Positive: EOMI; Negative: Sclera icteric ENT Exam: Positive: Atraumatic Neck Exam: Positive: Supple Chest Exam: Positive: Diminished Heart Exam: Positive: Rate Normal, Regular Rhythm Abdomen Exam: Positive: Normal bowel sounds, Soft; Negative: Tenderness Extremity Exam: Positive: Edema (bilateral) Neuro Exam: Positive: Normal Speech, Cranial Nerves 3-12 NL Psych Exam: Positive: Mental status NL, Mood NL Vital Signs Vital Signs Date Time Temp Pulse Resp B/P (MAP) Pulse Ox O2 Delivery O2 Flow Rate FiO2 06/26/20 16:05 100.1 86 95 06/26/20 16:00 123/58 (79) 06/26/20 14:01 20 Nasal Cannula 2.0 Laboratory Data Labs 24H Laboratory Tests 2 06/26/20 12:12: Immature Granulocyte % (Auto) 0.5, Neutrophils (%) (Auto) 82.4H, Lymphocytes (%) (Auto) 10.9L, Monocytes (%) (Auto) 5.3, Eosinophils (%) (Auto) 0.5, Basophils (%) (Auto) 0.4, Neutrophils # (Auto) 10.3H, Lymphocytes # (Auto) 1.4L, Monocytes # (Auto) 0.7, Eosinophils # (Auto) 0.1, Basophils # (Auto) 0.1, Nucleated Red Blood Cells % (auto) 0.0, Prothrombin Time 12.3, Prothromb Time International Ratio 0.90, D-Dimer, Quantitative 495.64, Anion Gap 7L, Glomerular Filtration Rate > 60.0, Lactic Acid Level 2.3*H, Calcium Level 8.3L, Total Bilirubin 1.2H, Direct Bilirubin 0.3H, Aspartate Amino Transf (AST/SGOT) 28, Alanine Aminotransferase (ALT/SGPT) 166H, Alkaline Phosphatase 111, Total Creatine Kinase 36, Creatine Kinase MB < 1.0, Creatine Kinase MB Relative Index 2.78, Troponin I < 0.02, OK-Mew-V-Type Natriuretic Peptide 439H, Total Protein 6.0L, Albumin 3.2, Albumin/Globulin Ratio 1.1L, Thyroid Stimulating Hormone (TSH) 1.020, Thyroxine (T4) 7.6 06/26/20 12:47: Coronavirus (COVID-19)(PCR) NEGATIVE, Influenza Type A (RT-PCR) NEGATIVE, Influenza Type B (RT-PCR) NEGATIVE, Respiratory Syncytial Virus (PCR) NEGATIVE CBC/BMP Laboratory Tests 06/26/20 12:12 Microbiology Microbiology 06/26/20 Blood Culture, Received Pending 06/26/20 Blood Culture, Received Pending Assessment/Plan Mrs. Craig is a 49 year old female with Lupus on immunosuppressive medication here with dyspnea, cough with sputum production and chest pain suspected to have recurrent pneumonia. She produced some sputum in the ED, but not clear if hemoptysis as it may be confounded by cola. She does not look at her sputum. Otherwise, she has a low grade temp of 100.1 and leukocytosis. She desaturated down to 88 percent at room air and requires 2L to maintain oxygenation. She will be treated for CAP. Reached out to pulmonology who will see tomorrow. Patient was to see Dr. Alonso on 07/16/2020 for re-evaluation and BAL with biopsy if symptoms not improving. Looking for fungal infection/PCP, alveolar hemorrhage, or biopsy for ILD. Pulmonology recommendations appreciated. Plan / VTE VTE Prophylaxis Ordered?: Yes Plan Plan 1. Recurrent pneumonia -Recently admitted in 05/31/2020 for pneumonia -On immunosuppressives for Lupus -Produces sputum, desaturates to 88& at room air, leukocytosis, and low grade temp of 100.1 -Will treat as CAP. On ceftriaxone and azithromycin -Sputum culture, legionella, and S.pneumo pending -Added Fungitell to look for fungal infection -Added procalcitonin -Pulmonology consulted, recommendations appreciated. Patient may need BAL with biopsy to look for ILD, infection, or alveolar hemorrhage 2. Lupus -Has malar rash -On Belimumab on Mondays -Will hold Belimumab due to infection -On last admission, he was put on prednisone taper, but not clear why. Possibly her lung disease may have an autoimmune component/ILD. Already given Decadron in the ED. Will continue as Solu-medrol. 3. Diabetes mellitus -Hold metformin, Jardiance, and Bydureon, and continue basal insulin -Start sliding scale insulin -carbohydrate consistent diet 4. Fibromyalgia -Continue pain control regimen -Holding Celebrex at this time 5. Hypertension -Continue Lisinopril and Toprol XL 6. HLD -Continue Crestor 7. DVT ppx -SCD and DEWEYs JAIDEN KELLER DO Jun 26, 2020 16:52
[2020-06-26] MEDS: oxyCODONE 5MG TAB PO SCH ×2 (17:00→21:31)
[2020-06-26 19:00] VITALS: BP 113/64
[2020-06-26 21:00] VITALS: BP 136/77
[2020-06-26] MEDS ORDERED: GLUCAGON INJ 1MG VIAL SC PRN (21:10)
[2020-06-26] MEDS ORDERED: DEXTROSE 50% 50 ML SYRINGE IV PRN (21:10)
[2020-06-26] MEDS ORDERED: GLUCOSE 4GM CHEW TABLET PO PRN (21:10)
[2020-06-26] MEDS: AZITHROMYCIN INJ 500 MG, VIAL MATE ADAPTER 1 EACH in NS 250 ML IV SCH (21:29)
[2020-06-26] MEDS: METOPROLOL SUCC *XL* 25MG TAB (TopROL *XL*) PO SCH (21:30)
[2020-06-26] MEDS: oxyBUTYnin *DITROPAN XL* 5 MG TABCR PO SCH (21:30)
[2020-06-26] MEDS: QUEtiapine FUMARATE 50MG TAB PO SCH (21:30)
[2020-06-26] MEDS: PANTOPRAZOLE 40MG TAB (PROTONIX) PO SCH (21:30)
[2020-06-26] MEDS: IPRATROPIUM 0.03% NASAL SPRAY 30 ML (ATROVENT) SCH (21:31)
[2020-06-26] MEDS: BACLOFEN 10 MG TAB PO SCH (21:32)
[2020-06-26] MEDS: HumaLOG INSULIN (NovoLOG) PER UNIT SC SCH (21:33)
--- NOTE | 2020-06-27 00:21 | ECGEPIP ---
[facility] - ED Test Date: 2020-06-26 Pat Name: CLINTON HAN Department: Room: - Gender: Female [employer]: ERYNIVIS : 1970 Requested By: GLADYS Scherer Order Number: [id number] Reading MD: Jerrell Arana Measurements Intervals [place] Rate: 96 P: 13 NH: 164 QRS: -32 QRSD: 86 T: 11 QT: 336 QTc: 424 Interpretive Statements Normal sinus rhythm Left axis deviation Inferior infarct , age undetermined Anterior infarct , age undetermined SIMILAR TO 05/31/20 Electronically Signed on 06-27-2020 0:21:01 EST by Jerrell Arana
[2020-06-27] MEDS: methylPREDNISolone 40MG 1ML VIAL IV SCH ×2 (03:17→15:58)
[2020-06-27] MEDS: oxyCODONE 5MG TAB PO SCH ×5 (05:18→21:00)
[2020-06-27 06:00] VITALS: BP 113/58
[2020-06-27 06:14] LABS: BASO % 0.2 % (0.0-1.0); HEMATOCRIT 41.5 % (36.0-47.0); HEMOGLOBIN 13.4 g/dl (12.0-15.5); LYMPH # 1.2 10^3/uL (1.5-5.0); LYMPH % 11.2 % (24.0-44.0); MEAN CORPUSCULAR HEMOGLOBIN 31.3 pg (27.0-33.0); MEAN CORPUSCULAR HGB CONC 32.3 g/dl (32.0-36.5); MONO # 0.3 10^3/uL (0.0-0.8); MONO % 2.9 % (2.0-8.0); NEUTROPHILS # 9.3 10^3/uL (1.5-8.5); NEUTROPHILS % 85.1 % (36.0-66.0); PLATELET COUNT, AUTOMATED 196 10^3/uL (150-450); RED BLOOD COUNT 4.28 10^6/uL (4.00-5.40); WHITE BLOOD COUNT 10.9 10^3/uL (4.0-10.0)
[2020-06-27 06:36] LABS: BLOOD UREA NITROGEN 12 MG/DL (7-18); CALCIUM LEVEL 9.1 MG/DL (8.5-10.1); CARBON DIOXIDE LEVEL 29 MEQ/L (21-32); CHLORIDE LEVEL 108 MEQ/L (98-107); CREATININE FOR GFR 0.63 MG/DL (0.55-1.30); GLOMERULAR FILTRATION RATE > 60.0 (>51); GLUCOSE, FASTING 140 MG/DL (70-100); MAGNESIUM LEVEL 2.1 MG/DL (1.8-2.4); POTASSIUM SERUM 3.7 MEQ/L (3.5-5.1); SODIUM LEVEL 142 MEQ/L (136-145)
[2020-06-27] MEDS: HumaLOG INSULIN (NovoLOG) PER UNIT SC SCH ×4 (09:12→21:33)
[2020-06-27] MEDS: ROSUVASTATIN 10 MG TAB (CRESTOR) PO SCH (09:13)
[2020-06-27] MEDS: lisinopriL 5 MG TAB PO SCH (09:13)
[2020-06-27] MEDS: PREGABALIN 100 MG CAP (LYRICA) PO SCH ×3 (09:13→20:54)
[2020-06-27] MEDS: CETIRIZINE (ZyrTEC) 10 MG TAB PO SCH (09:13)
[2020-06-27] MEDS: DULoxetine 30 MG CAP (CYMBALTA) PO SCH (09:13)
[2020-06-27] MEDS: LEVEMIR (INSULIN DETEMIR) 1 UNITS/0.01ML SC SCH (09:14)
--- NOTE | 2020-06-27 09:14 | ECGEPIP ---
[facility] Test Date: 2020-06-27 Pat Name: CLINTON HAN Department: Room: [place] [address] Gender: Female Cena: res : 1970 Requested By: SUMMER ODELL D.O. Order Number: [id number] Reading MD: Kandy Baca Measurements Intervals [place] Rate: 55 P: 28 ND: 178 QRS: -7 QRSD: 92 T: 18 QT: 450 QTc: 430 Interpretive Statements Sinus bradycardia RATE SLOWER NEW SEPTAL T WAVE ABN OLD INF AND ANT INFACT C/W 06/26/20 Electronically Signed on 06-27-2020 9:14:03 EST by Kandy Baca
--- NOTE | 2020-06-27 11:25 | IPN ---
PULMONARY PROGRESS NOTE DATE: 06/27/2020 SUBJECTIVE: I was asked to evaluate Radha Craig here on the medical/surgical unit. She was previously seen in the hospital for similar complaints by Dr. Alonso. She was actually due to see Dr. Alonso in the outpatient setting, but developed fever and chills and presented to the emergency room (ER). She felt well up until yesterday morning when this came on her acutely. She does state that her reflux disease has been really out of control as of late. She does have a chronic cough. She does have a little bit more sputum production over the last several days, but has been unable to expectorate anything today. Maximum temperature (T-max) overnight 97.4, blood pressure 110-130s, heart rate generally in the 50s, respiratory rate 18-20 without accessory muscle use. INTAKE AND OUTPUT: Not adequately recorded. LABORATORY DATA: White blood cell count at the time of admission 12.6, today 10.9; hemoglobin 14.0 and today 13.4; 82% segs, no bands yesterday, similar today. Sodium 142, potassium 3.7, chloride 108, CO2 29, BUN 12, creatinine 0.63, glucose 140. PHYSICAL EXAMINATION: She is awake, alert and appropriate. Pupils are reactive. Sclerae clear. Trachea is in midline. CHEST: Shows diminished but symmetric expansion. There are some crackles at the extreme left base, but no convincing egophony. No wheeze, rhonchus or rubs. CARDIAC EXAM: Distant, mildly bradycardic but regular. Peripheral pulses palpable. No obvious edema. ABDOMEN: Obese, soft. Normoactive bowel sounds. No convincing organomegaly or masses. EXTREMITIES: No cyanosis or clubbing. NEUROLOGIC: She is awake, alert and appropriate. PSYCHIATRIC: She has normal mood and affect. MEDICATIONS: Medication list has been reviewed. She is on Rocephin and azithromycin as well as low dose Solu-Medrol. IMAGING DATA: Chest x-ray and CT scan are reviewed. There is some minimal air space disease at the left base without obvious bronchograms. Somewhat, almost ground-glass in appearance. MICROBIOLOGY: Blood cultures are pending. Respiratory panel is negative for viruses including SARS-CoV2. IMPRESSION: 1. Recurrent pneumonitis. Suspect probably aspiration complicated by her immunosuppressive medications. 2. Chronic immunosuppression. 3. Gastroesophageal reflux disease. At this point, I am in agreement with her current antimicrobials. Repeat sputum culture has been ordered. We will continue as outlined above. At this point, I do not see a role for bronchoscopy. We will continue to follow her closely while she is here in the hospital. Also, deep venous thrombosis (DVT) prophylaxis managed by the primary team. Please refer to the hospital record. As new information becomes available, further recommendations will be made.
[2020-06-27] MEDS: SUCRALFATE 1 GM TAB PO SCH ×3 (12:43→20:55)
[2020-06-27 14:00] VITALS: BP 122/74
[2020-06-27] MEDS: cefTRIAXone SOD 1 GM in D5W MINI-BAG PLUS 50 ML IV SCH (15:58)
[2020-06-27] MEDS: AZITHROMYCIN INJ 500 MG, VIAL MATE ADAPTER 1 EACH in NS 250 ML IV SCH (18:07)
--- NOTE | 2020-06-27 18:12 | IPNPDOC ---
Subjective Date Seen The patient was seen on 06/27/20. Subjective Chief Complaint/HPI Mrs. Craig is a 49 year old female with Lupus on immunosuppressive medication here with dyspnea, cough with sputum production and chest pain. This morning she feels about the same. Denies worsening dyspnea. Denies chest pain. Spoke with Dr. Whittaker, most likely aspiration pneumonia from chronic GERD. We'll start patient on medications for GERD and aspiration precautions. Objective Physical Examination General Exam: Positive: Alert, Cooperative Eye Exam: Positive: EOMI; Negative: Sclera icteric ENT Exam: Positive: Atraumatic Neck Exam: Positive: Supple Chest Exam: Positive: Diminished Heart Exam: Positive: Rate Normal, Regular Rhythm Abdomen Exam: Positive: Normal bowel sounds, Soft; Negative: Tenderness Extremity Exam: Positive: Edema (bilateral) Neuro Exam: Positive: Normal Speech, Cranial Nerves 3-12 NL Psych Exam: Positive: Mental status NL, Mood NL Assessment /Plan Assessment Mrs. Craig is a 49 year old female with Lupus on immunosuppressive medication here with dyspnea, cough with sputum production and chest pain suspected to have recurrent pneumonia. Discussed with pulmonology, Dr. Whittaker. Dr. Whittaker touch base with Dr. Alonso. Most likely aspiration pneumonia from GERD. Start patient on aspiration cautions, PPI, and Carafate. Otherwise we'll treat the pneumonia with ceftriaxone and azithromycin which would cover Escherichia coli seen in her previous sputum culture. Plan/VTE VTE Prophylaxis Ordered?: Yes Plan 1. Recurrent pneumonia -Recently admitted in 05/31/2020 for pneumonia -On immunosuppressives for Lupus -Produces sputum, desaturates to 88& at room air, leukocytosis, and low grade temp of 100.1 -Will treat as CAP. On ceftriaxone and azithromycin -Sputum culture, legionella, and S.pneumo pending -Added Fungitell to look for fungal infection -Procalcitonin was elevated -Pulmonology consulted, recommendations appreciated. 2. Lupus -Has malar rash -On Belimumab on Mondays -Will hold Belimumab due to infection -On last admission, he was put on prednisone taper, but not clear why. Possibly her lung disease may have an autoimmune component/ILD. Already given Decadron in the ED. Will continue as Solu-medrol. We'll taper Solu-Medrol 3. Diabetes mellitus -Hold metformin, Jardiance, and Bydureon, and continue basal insulin -Start sliding scale insulin -carbohydrate consistent diet 4. Fibromyalgia -Continue pain control regimen -Holding Celebrex at this time 5. Hypertension -Continue Lisinopril and Toprol XL 6. HLD -Continue Crestor 7. DVT ppx -Lovenox VS, I&O, 24H, Fishbone Vital Signs/I&O Vital Signs Date Time Temp Pulse Resp B/P (MAP) Pulse Ox O2 Delivery O2 Flow Rate FiO2 06/27/20 17:17 17 Nasal Cannula 06/27/20 14:00 97.8 68 122/74 (90) 94 2.0 I&O- Last 24 Hours up to 6 AM 06/27/20 06:00 Intake Total 905 ml Output Total 1500 ml Balance -595 ml Laboratory Data 24H LABS Laboratory Tests 2 06/26/20 20:40: Bedside Glucose (Misc Panel) 414H 06/27/20 05:24: Immature Granulocyte % (Auto) 0.6, Neutrophils (%) (Auto) 85.1H, Lymphocytes (%) (Auto) 11.2L, Monocytes (%) (Auto) 2.9, Eosinophils (%) (Auto) 0.0, Basophils (%) (Auto) 0.2, Neutrophils # (Auto) 9.3H, Lymphocytes # (Auto) 1.2L, Monocytes # (Auto) 0.3, Eosinophils # (Auto) 0.0, Basophils # (Auto) 0.0, Nucleated Red Blood Cells % (auto) 0.0, Anion Gap 5L, Glomerular Filtration Rate > 60.0, Calcium Level 9.1, Magnesium Level 2.1, Troponin I < 0.02 06/27/20 11:29: Bedside Glucose (Misc Panel) 184H 06/27/20 12:47: 06/27/20 17:07: Bedside Glucose (Misc Panel) 255H CBC/BMP Laboratory Tests 06/27/20 05:24 Microbiology Microbiology 06/26/20 Blood Culture - Preliminary, Resulted No growth after 24 hours . All specim... 06/26/20 Blood Culture - Preliminary, Resulted No growth after 24 hours . All specim... JAIDEN KELLER 10, 2021 18:12
[2020-06-27] MEDS: PANTOPRAZOLE 40MG TAB (PROTONIX) PO SCH (20:54)
[2020-06-27] MEDS: BACLOFEN 10 MG TAB PO SCH (20:54)
[2020-06-27] MEDS: oxyBUTYnin *DITROPAN XL* 5 MG TABCR PO SCH (20:55)
[2020-06-27] MEDS: QUEtiapine FUMARATE 50MG TAB PO SCH (20:55)
[2020-06-27] MEDS: METOPROLOL SUCC *XL* 25MG TAB (TopROL *XL*) PO SCH (20:55)
[2020-06-27] MEDS: IPRATROPIUM 0.03% NASAL SPRAY 30 ML (ATROVENT) SCH (21:00)
[2020-06-27 22:00] VITALS: BP 137/74
[2020-06-28] MEDS: methylPREDNISolone 40MG 1ML VIAL IV SCH ×2 (03:06→15:24)
[2020-06-28] MEDS: oxyCODONE 5MG TAB PO SCH ×5 (05:04→21:18)
[2020-06-28 05:58] LABS: HEMATOCRIT 37.5 % (36.0-47.0); HEMOGLOBIN 12.3 g/dl (12.0-15.5); MEAN CORPUSCULAR HEMOGLOBIN 32.4 pg (27.0-33.0); MEAN CORPUSCULAR HGB CONC 32.8 g/dl (32.0-36.5); MEAN CORPUSCULAR VOLUME 98.7 fl (80.0-96.0); PLATELET COUNT, AUTOMATED 197 10^3/uL (150-450); WHITE BLOOD COUNT 10.3 10^3/uL (4.0-10.0)
[2020-06-28 06:00] VITALS: BP 103/50
[2020-06-28 06:22] LABS: BLOOD UREA NITROGEN 15 MG/DL (7-18); CALCIUM LEVEL 9.2 MG/DL (8.5-10.1); CARBON DIOXIDE LEVEL 29 MEQ/L (21-32); CHLORIDE LEVEL 108 MEQ/L (98-107); CREATININE FOR GFR 0.57 MG/DL (0.55-1.30); GLOMERULAR FILTRATION RATE > 60.0 (>51); GLUCOSE, FASTING 201 MG/DL (70-100); SODIUM LEVEL 142 MEQ/L (136-145)
[2020-06-28] MEDS: SUCRALFATE 1 GM TAB PO SCH ×4 (07:35→21:21)
[2020-06-28] MEDS: HumaLOG INSULIN (NovoLOG) PER UNIT SC SCH ×4 (07:36→21:17)
[2020-06-28 08:00] VITALS: BP 136/78
[2020-06-28] MEDS ORDERED: busPIRone 5 MG TAB PO SCH (09:00)
[2020-06-28] MEDS: PREGABALIN 100 MG CAP (LYRICA) PO SCH ×3 (09:15→21:17)
[2020-06-28] MEDS: lisinopriL 5 MG TAB PO SCH (09:58)
[2020-06-28] MEDS: CETIRIZINE (ZyrTEC) 10 MG TAB PO SCH (09:59)
[2020-06-28] MEDS: ROSUVASTATIN 10 MG TAB (CRESTOR) PO SCH (09:59)
[2020-06-28] MEDS: DULoxetine 30 MG CAP (CYMBALTA) PO SCH (10:00)
[2020-06-28] MEDS: ENOXAPARIN 40MG/0.4ML SYRINGE (J1650 PER 10MG) SC SCH (10:01)
[2020-06-28] MEDS: LEVEMIR (INSULIN DETEMIR) 1 UNITS/0.01ML SC SCH (10:02)
[2020-06-28] MEDS: MUPIROCIN 2% OINT 22 GM TUBE TOP SCH ×2 (10:03→21:16)
[2020-06-28] MEDS ORDERED: DULoxetine 30 MG CAP (CYMBALTA) PO ONE (12:00)
[2020-06-28 14:00] VITALS: BP 163/85
[2020-06-28 14:57] VITALS: BP 164/80
[2020-06-28] MEDS: cefTRIAXone SOD 1 GM in D5W MINI-BAG PLUS 50 ML IV SCH (15:24)
[2020-06-28] MEDS: AZITHROMYCIN INJ 500 MG, VIAL MATE ADAPTER 1 EACH in NS 250 ML IV SCH (17:31)
[2020-06-28] MEDS: busPIRone 5 MG TAB PO SCH (17:41)
--- NOTE | 2020-06-28 18:20 | IPNPDOC ---
Subjective Date Seen The patient was seen on 06/28/20. Subjective Chief Complaint/HPI Mrs. Craig is a 49 year old female with Lupus on immunosuppressive medication here with dyspnea, cough with sputum production and chest pain. This morning, she still has some dyspnea, but no chest pain. She has not been able to produce sputum for sputum culture. Objective Physical Examination General Exam: Positive: Alert, Cooperative Eye Exam: Positive: EOMI; Negative: Sclera icteric ENT Exam: Positive: Atraumatic Neck Exam: Positive: Supple Chest Exam: Positive: Diminished Heart Exam: Positive: Rate Normal, Regular Rhythm Abdomen Exam: Positive: Normal bowel sounds, Soft; Negative: Tenderness Extremity Exam: Positive: Edema (bilateral) Neuro Exam: Positive: Normal Speech, Cranial Nerves 3-12 NL Psych Exam: Positive: Mental status NL, Mood NL Assessment /Plan Assessment Mrs. Craig is a 49 year old female with Lupus on immunosuppressive medication h ere with dyspnea, cough with sputum production and chest pain suspected to have recurrent pneumonia. Discussed with pulmonology, Dr. Whittaker. Dr. Whittaker touch base with Dr. Alonso. Most likely aspiration pneumonia from GERD. Start patient on aspiration cautions, PPI, and Carafate. Otherwise we'll treat the pneumonia with ceftriaxone and azithromycin which would cover Escherichia coli seen in her previous sputum culture. Continue weaning oxygen. Plan/VTE VTE Prophylaxis Ordered?: Yes Plan 1. Recurrent pneumonia -Recently admitted in 05/31/2020 for pneumonia -On immunosuppressives for Lupus -Produces sputum, desaturates to 88& at room air, leukocytosis, and low grade temp of 100.1 -Will treat as CAP. On ceftriaxone and azithromycin -Sputum culture, legionella, and S.pneumo pending -Added Fungitell to look for fungal infection -Procalcitonin was elevated at 1.45 -Pulmonology consulted, recommendations appreciated. 2. Lupus -Has malar rash -On Belimumab on Mondays -Will hold Belimumab due to infection -On last admission, he was put on prednisone taper, but not clear why. Possibly her lung disease may have an autoimmune component/ILD. Already given Decadron in the ED. Will continue as Solu-medrol. We'll taper Solu-Medrol 3. Diabetes mellitus -Hold metformin, Jardiance, and Bydureon, and continue basal insulin -Start sliding scale insulin -carbohydrate consistent diet 4. Fibromyalgia -Continue pain control regimen -Holding Celebrex at this time 5. Hypertension -Continue Lisinopril and Toprol XL 6. HLD -Continue Crestor 7. DVT ppx -Lovenox VS, I&O, 24H, Fishbone Vital Signs/I&O Vital Signs Date Time Temp Pulse Resp B/P (MAP) Pulse Ox O2 Delivery O2 Flow Rate FiO2 06/28/20 18:12 18 06/28/20 14:57 98.5 56 164/80 (108) 99 Nasal Cannula 1.0 I&O- Last 24 Hours up to 6 AM 06/28/20 06:00 Intake Total 1515 ml Output Total 2800 ml Balance -1285 ml Laboratory Data 24H LABS Laboratory Tests 2 06/27/20 21:29: Bedside Glucose (Misc Panel) 345H 06/28/20 05:17: Nucleated Red Blood Cells % (auto) 0.0, Anion Gap 5L, Glomerular Filtration Rate > 60.0, Calcium Level 9.2 06/28/20 11:24: Bedside Glucose (Misc Panel) 335H 06/28/20 16:52: Bedside Glucose (Misc Panel) 325H CBC/BMP Laboratory Tests 06/28/20 05:17 Microbiology Microbiology 06/26/20 Blood Culture - Preliminary, Resulted No Growth after 48 hours. All Specime... 06/26/20 Blood Culture - Preliminary, Resulted No Growth after 48 hours. All Specime... JAIDEN KELLER DO Jun 28, 2020 18:20
[2020-06-28] MEDS: METOPROLOL SUCC *XL* 25MG TAB (TopROL *XL*) PO SCH (21:00)
[2020-06-28] MEDS: IPRATROPIUM 0.03% NASAL SPRAY 30 ML (ATROVENT) SCH (21:16)
[2020-06-28] MEDS: PANTOPRAZOLE 40MG TAB (PROTONIX) PO SCH (21:17)
[2020-06-28] MEDS: oxyBUTYnin *DITROPAN XL* 5 MG TABCR PO SCH (21:17)
[2020-06-28] MEDS: BACLOFEN 10 MG TAB PO SCH (21:18)
[2020-06-28] MEDS: QUEtiapine FUMARATE 50MG TAB PO SCH (21:21)
[2020-06-28 22:00] VITALS: BP 143/76
[2020-06-29] MEDS: oxyCODONE 5MG TAB PO SCH ×5 (05:09→20:19)
[2020-06-29 06:00] VITALS: BP 114/60
[2020-06-29 06:22] LABS: HEMATOCRIT 38.5 % (36.0-47.0); HEMOGLOBIN 12.7 g/dl (12.0-15.5); MEAN CORPUSCULAR HEMOGLOBIN 32.6 pg (27.0-33.0); PLATELET COUNT, AUTOMATED 208 10^3/uL (150-450); RED BLOOD COUNT 3.89 10^6/uL (4.00-5.40); WHITE BLOOD COUNT 10.4 10^3/uL (4.0-10.0)
[2020-06-29 06:39] LABS: BLOOD UREA NITROGEN 14 MG/DL (7-18); CALCIUM LEVEL 8.6 MG/DL (8.5-10.1); CARBON DIOXIDE LEVEL 32 MEQ/L (21-32); CHLORIDE LEVEL 107 MEQ/L (98-107); CREATININE FOR GFR 0.62 MG/DL (0.55-1.30); GLOMERULAR FILTRATION RATE > 60.0 (>51); GLUCOSE, FASTING 189 MG/DL (70-100); POTASSIUM SERUM 3.6 MEQ/L (3.5-5.1); SODIUM LEVEL 142 MEQ/L (136-145)
[2020-06-29] MEDS: ENOXAPARIN 40MG/0.4ML SYRINGE (J1650 PER 10MG) SC SCH (08:16)
[2020-06-29] MEDS: DULoxetine 30 MG CAP (CYMBALTA) PO SCH (08:17)
[2020-06-29] MEDS: ROSUVASTATIN 10 MG TAB (CRESTOR) PO SCH (08:17)
[2020-06-29] MEDS: HumaLOG INSULIN (NovoLOG) PER UNIT SC SCH ×4 (08:17→20:18)
[2020-06-29] MEDS: LEVEMIR (INSULIN DETEMIR) 1 UNITS/0.01ML SC SCH (08:17)
[2020-06-29] MEDS: SUCRALFATE 1 GM TAB PO SCH ×4 (08:18→20:17)
[2020-06-29] MEDS: CETIRIZINE (ZyrTEC) 10 MG TAB PO SCH (08:18)
[2020-06-29] MEDS: busPIRone 5 MG TAB PO SCH ×2 (08:18→17:11)
[2020-06-29] MEDS: PREGABALIN 100 MG CAP (LYRICA) PO SCH ×3 (08:18→20:17)
[2020-06-29] MEDS: lisinopriL 5 MG TAB PO SCH (08:19)
[2020-06-29] MEDS: MUPIROCIN 2% OINT 22 GM TUBE TOP SCH ×2 (08:19→20:19)
[2020-06-29] MEDS ORDERED: methylPREDNISolone 40MG 1ML VIAL IV SCH (09:00)
[2020-06-29] MEDS ORDERED: PILL CUTTER 1 EACH XX PRN (12:20)
--- NOTE | 2020-06-29 12:21 | IPNPDOC ---
Subjective Date Seen The patient was seen on 06/29/20. Subjective Chief Complaint/HPI Mrs. Craig is a 49 year old female with Lupus on immunosuppressive medication here with dyspnea, cough with sputum production and chest pain. This morning, feels about the same. Discussed about aspiration prevention. Consulted speech/swallow therapy. Recommending modified barium swallow. Objective Physical Examination General Exam: Positive: Alert, Cooperative Eye Exam: Positive: EOMI; Negative: Sclera icteric ENT Exam: Positive: Atraumatic Neck Exam: Positive: Supple Chest Exam: Positive: Diminished Heart Exam: Positive: Rate Normal, Regular Rhythm Abdomen Exam: Positive: Normal bowel sounds, Soft; Negative: Tenderness Extremity Exam: Positive: Edema (bilateral) Neuro Exam: Positive: Normal Speech, Cranial Nerves 3-12 NL Psych Exam: Positive: Mental status NL, Mood NL Assessment /Plan Assessment Mrs. Craig is a 49 year old female with Lupus on immunosuppressive medication here with dyspnea, cough with sputum production and chest pain suspected to have recurrent pneumonia. Discussed with pulmonology, Dr. Whittaker. Dr. Whittaker touched base with Dr. Alonso. Most likely aspiration pneumonia from GERD. Start patient on aspiration cautions, PPI, and Carafate. Otherwise we'll treat the pneumonia with ceftriaxone which would cover Escherichia coli seen in her previous sputum culture. Continue weaning oxygen. Plan/VTE VTE Prophylaxis Ordered?: Yes Plan 1. Recurrent pneumonia -Recently admitted in 05/31/2020 for pneumonia -On immunosuppressives for Lupus -Produces sputum, desaturates to 88& at room air, leukocytosis, and low grade temp of 100.1 -Will treat as CAP. On ceftriaxone and azithromycin -Sputum culture, legionella, and S.pneumo pending -Added Fungitell to look for fungal infection -Procalcitonin was elevated at 1.45 -Pulmonology consulted, recommendations appreciated. -Sputum culture pending 2. Lupus -Has malar rash -On Belimumab on Mondays -Will hold Belimumab due to infection -On last admission, he was put on prednisone taper, but not clear why. Possibly her lung disease may have an autoimmune component/ILD. Already given Decadron in the ED. Tapered solumedrol to prednisone 3. Diabetes mellitus -Hold metformin, Jardiance, and Bydureon, and continue basal insulin -Start sliding scale insulin -carbohydrate consistent diet 4. Fibromyalgia -Continue pain control regimen -Holding Celebrex at this time 5. Hypertension -Continue Lisinopril and Toprol XL 6. HLD -Continue Crestor 7. DVT ppx -Lovenox Disposition: Pending clinical improvement and results from modified barium swallow test VS, I&O, 24H, Fishbone Vital Signs/I&O Vital Signs Date Time Temp Pulse Resp B/P (MAP) Pulse Ox O2 Delivery O2 Flow Rate FiO2 06/29/20 09:20 1.0 06/29/20 08:48 18 06/29/20 08:19 149/82 06/29/20 06:00 98.0 60 94 Room Air I&O- Last 24 Hours up to 6 AM 06/29/20 06:00 Intake Total 1760 ml Output Total 2950 ml Balance -1190 ml Laboratory Data 24H LABS Laboratory Tests 2 06/28/20 16:52: Bedside Glucose (Misc Panel) 325H 06/28/20 20:15: Bedside Glucose (Misc Panel) 480H 06/29/20 05:32: Nucleated Red Blood Cells % (auto) 0.0, Anion Gap 3L, Glomerular Filtration Rate > 60.0, Calcium Level 8.6 06/29/20 11:56: Bedside Glucose (Misc Panel) 266H CBC/BMP Laboratory Tests 06/29/20 05:32 Microbiology Microbiology 06/29/20 Gram Stain - Final, Resulted 06/29/20 Sputum Culture, Resulted Pending 06/26/20 Blood Culture - Preliminary, Resulted No Growth after 48 hours. All Specime... 06/26/20 Blood Culture - Preliminary, Resulted No Growth after 48 hours. All Specime... JAIDEN KELLER DO Jun 29, 2020 12:21
[2020-06-29 14:00] VITALS: BP 113/60
[2020-06-29] MEDS ORDERED: VARIBAR NECTAR 40% w/v 240ML SUSP BTL As Ordered ONE (14:02)
[2020-06-29] MEDS ORDERED: VARIBAR PUDDING 40% w/v 230ML TUBE As Ordered ONE (14:02)
[2020-06-29] MEDS ORDERED: E-Z-PAQUE 96% w/w SUSP 176GM BTL As Ordered ONE (14:03)
[2020-06-29] MEDS ORDERED: BARIUM SULFATE 700 MG TABLET (E-Z-DISK) As Ordered ONE (14:03)
[2020-06-29 14:08] LABS: BODY FLUID CULTURE Not indicated. (.); LEGIONELLA ANTIGEN URINE Negative (Negative); ORGANISM ID Not indicated. (.); SPECIMEN SOURCE Urine (.); URINE STREP PNEUMONIAE ANTIGEN Negative (Negative)
[2020-06-29] MEDS: cefTRIAXone SOD 1 GM in D5W MINI-BAG PLUS 50 ML IV SCH (15:31)
--- NOTE | 2020-06-29 16:50 | REP ---
INDICATION: aspiration. COMPARISON: None. TECHNIQUE: The procedure was performed under the direct supervision of Dr. Torres. The procedure was performed with Tash Kenny from speech pathology present. 5 cc aliquots of thin, pudding, mixed fruit, soft and solid consistency barium was administered. With thin consistency barium there is laryngeal penetration. A detailed report of this examination will be provided by speech pathology. 2.1 minutes of fluoroscopy time was utilized for this procedure. FINDINGS: None IMPRESSION: Laryngeal penetration with thin consistency barium. A detailed report of this examination will be provided by speech pathology. <Electronically signed by Lalo Weems > 06/29/20 [id number] <Electronically signed by Naveen Torres > 06/29/20 [id number]
[2020-06-29] MEDS: METOPROLOL SUCC *XL* 25MG TAB (TopROL *XL*) PO SCH (20:09)
[2020-06-29] MEDS: oxyBUTYnin *DITROPAN XL* 5 MG TABCR PO SCH (20:17)
[2020-06-29] MEDS: BACLOFEN 10 MG TAB PO SCH (20:17)
[2020-06-29] MEDS: IPRATROPIUM 0.03% NASAL SPRAY 30 ML (ATROVENT) SCH (20:17)
[2020-06-29] MEDS: QUEtiapine FUMARATE 50MG TAB PO SCH (20:17)
[2020-06-29] MEDS: PANTOPRAZOLE 40MG TAB (PROTONIX) PO SCH (20:17)
[2020-06-29 22:00] VITALS: BP 122/82
[2020-06-30] MEDS: oxyCODONE 5MG TAB PO SCH ×5 (05:49→20:48)
[2020-06-30 06:00] VITALS: BP 129/75
[2020-06-30 06:48] LABS: HEMATOCRIT 41.2 % (36.0-47.0); HEMOGLOBIN 13.2 g/dl (12.0-15.5); MEAN CORPUSCULAR HEMOGLOBIN 31.5 pg (27.0-33.0); MEAN CORPUSCULAR VOLUME 98.3 fl (80.0-96.0); PLATELET COUNT, AUTOMATED 222 10^3/uL (150-450); RED BLOOD COUNT 4.19 10^6/uL (4.00-5.40); WHITE BLOOD COUNT 7.8 10^3/uL (4.0-10.0)
[2020-06-30 07:00] LABS: BLOOD UREA NITROGEN 15 MG/DL (7-18); CALCIUM LEVEL 8.5 MG/DL (8.5-10.1); CARBON DIOXIDE LEVEL 35 MEQ/L (21-32); CHLORIDE LEVEL 105 MEQ/L (98-107); GLOMERULAR FILTRATION RATE > 60.0 (>51); GLUCOSE, FASTING 93 MG/DL (70-100); POTASSIUM SERUM 3.6 MEQ/L (3.5-5.1); SODIUM LEVEL 144 MEQ/L (136-145)
[2020-06-30] MEDS: HumaLOG INSULIN (NovoLOG) PER UNIT SC SCH ×4 (07:30→20:47)
[2020-06-30] MEDS: lisinopriL 5 MG TAB PO SCH (08:16)
[2020-06-30] MEDS: SUCRALFATE 1 GM TAB PO SCH ×4 (08:16→20:45)
[2020-06-30] MEDS: ROSUVASTATIN 10 MG TAB (CRESTOR) PO SCH (08:16)
[2020-06-30] MEDS: DULoxetine 30 MG CAP (CYMBALTA) PO SCH (08:16)
[2020-06-30] MEDS: busPIRone 5 MG TAB PO SCH ×2 (08:17→17:13)
[2020-06-30] MEDS: CETIRIZINE (ZyrTEC) 10 MG TAB PO SCH (08:17)
[2020-06-30] MEDS: PREGABALIN 100 MG CAP (LYRICA) PO SCH ×3 (08:17→20:46)
[2020-06-30] MEDS: ENOXAPARIN 40MG/0.4ML SYRINGE (J1650 PER 10MG) SC SCH (08:18)
[2020-06-30] MEDS: MUPIROCIN 2% OINT 22 GM TUBE TOP SCH ×2 (08:18→20:47)
[2020-06-30] MEDS: LEVEMIR (INSULIN DETEMIR) 1 UNITS/0.01ML SC SCH (08:18)
[2020-06-30] MEDS ORDERED: predniSONE 10 MG TAB PO SCH (09:00)
[2020-06-30] MEDS: MAGIC MOUTHWASH SUSPENSION BTL SSP SCH ×2 (12:16→17:14)
[2020-06-30 13:22] VITALS: BP 153/89
--- NOTE | 2020-06-30 13:54 | IPNPDOC ---
Subjective Date Seen The patient was seen on 06/30/20. Subjective Chief Complaint/HPI Mrs. Craig is a 49 year old female with Lupus on immunosuppressive medication here with dyspnea, cough with sputum production and chest pain. Yesterday, speech therapy saw patient and recommended modified barium swallow. Modified barium swallow was positive for aspiration. Pending further recommendations from speech therapy. Otherwise, patient was seen in the morning. She was weaned off oxygen early this morning. Denies chest pain. Reports oral soreness and feels that she is flaring from her Lupus. She is normally on a solumedrol dose pack at home for the flares. Will start magic mouth was and increase steroids to Solumedrol IV to help with flare. Objective Physical Examination General Exam: Positive: Alert, Cooperative Eye Exam: Positive: EOMI; Negative: Sclera icteric ENT Exam: Positive: Atraumatic Neck Exam: Positive: Supple Chest Exam: Positive: Diminished Heart Exam: Positive: Rate Normal, Regular Rhythm Abdomen Exam: Positive: Normal bowel sounds, Soft; Negative: Tenderness Extremity Exam: Positive: Edema (bilateral) Neuro Exam: Positive: Normal Speech, Cranial Nerves 3-12 NL Psych Exam: Positive: Mental status NL, Mood NL Assessment /Plan Assessment Mrs. Craig is a 49 year old female with Lupus on immunosuppressive medication here with dyspnea, cough with sputum production and chest pain suspected to have recurrent pneumonia. Discussed with pulmonology, Dr. Whittaker. Dr. Whittaker touched base with Dr. Alonso. Most likely aspiration pneumonia from GERD. Start patient on aspiration cautions, PPI, and Carafate. Otherwise we'll treat the pneumonia with ceftriaxone which would cover Escherichia coli seen in her previous sputum culture. Pending sputum culture results. Otherwise, modified barium swallow was positive for aspiration. Pending recommendations from speech therapy. She does have lupus and she feels that she is starting to flare and have oral inflammation. Started magic mouth wash and increased steroids. Plan/VTE VTE Prophylaxis Ordered?: Yes Plan 1. Aspiration pneumonia -Recently admitted in 05/31/2020 for pneumonia -On immunosuppressives for Lupus -Produces sputum, desaturates to 88& at room air, leukocytosis, and low grade temp of 100.1 -Will treat as CAP. On ceftriaxone (completed azithromycin course) -Sputum culture pending -Fungitell, legionella, and S.pneumo negative -Procalcitonin was elevated at 1.45 -Pulmonology consulted, recommendations appreciated. -Sputum culture pending 2. Lupus -Has malar rash -On Belimumab on Mondays -Will hold Belimumab due to infection -Starting to flare. Solumedrol and Magic mouth wash 3. Diabetes mellitus -Hold metformin, Jardiance, and Bydureon, and continue basal insulin -Start sliding scale insulin -carbohydrate consistent diet 4. Fibromyalgia -Continue pain control regimen -Holding Celebrex at this time 5. Hypertension -Continue Lisinopril and Toprol XL 6. HLD -Continue Crestor 7. Aspiration -Speech therapy consulted -Modified barium swallow positive -Pending speech therapy recommendations 8. DVT ppx -Lovenox Disposition: Pending recommendations from speech therapy VS, I&O, 24H, Fishbone Vital Signs/I&O Vital Signs Date Time Temp Pulse Resp B/P (MAP) Pulse Ox O2 Delivery O2 Flow Rate FiO2 06/30/20 13:22 96.8 110 17 153/89 (110) 91 Room Air 06/30/20 05:49 1.0 I&O- Last 24 Hours up to 6 AM 06/30/20 06:00 Intake Total 3110 ml Output Total 4575 ml Balance -1465 ml Laboratory Data 24H LABS Laboratory Tests 2 06/29/20 16:54: Bedside Glucose (Misc Panel) 345H 06/29/20 19:35: Bedside Glucose (Misc Panel) 389H 06/30/20 05:32: Nucleated Red Blood Cells % (auto) 0.0, Anion Gap 4L, Glomerular Filtration Rate > 60.0, Calcium Level 8.5 06/30/20 11:45: Bedside Glucose (Misc Panel) 219H CBC/BMP Laboratory Tests 06/30/20 05:32 Microbiology Microbiology 06/29/20 Gram Stain - Final, Resulted 06/29/20 Sputum Culture, Resulted Pending 06/26/20 Blood Culture - Preliminary, Resulted No Growth after 72 hours. All specime... 06/26/20 Blood Culture - Preliminary, Resulted No Growth after 72 hours. All specime... JAIDEN KELLER DO Jun 30, 2020 13:41
[2020-06-30] MEDS: cefTRIAXone SOD 1 GM in D5W MINI-BAG PLUS 50 ML IV SCH (14:22)
[2020-06-30] MEDS ORDERED: QUEtiapine FUMARATE 25 MG TAB PO ONE (15:00)
[2020-06-30] MEDS: BACLOFEN 10 MG TAB PO SCH (20:45)
[2020-06-30] MEDS: oxyBUTYnin *DITROPAN XL* 5 MG TABCR PO SCH (20:45)
[2020-06-30] MEDS: methylPREDNISolone 125MG 2ML VIAL IV SCH (20:45)
[2020-06-30] MEDS: PANTOPRAZOLE 40MG TAB (PROTONIX) PO SCH (20:46)
[2020-06-30] MEDS: QUEtiapine FUMARATE 50MG TAB PO SCH (20:46)
[2020-06-30] MEDS: IPRATROPIUM 0.03% NASAL SPRAY 30 ML (ATROVENT) SCH (20:47)
[2020-06-30] MEDS: METOPROLOL SUCC *XL* 25MG TAB (TopROL *XL*) PO SCH (20:49)
[2020-06-30 22:00] VITALS: BP 146/85
[2020-07-01 06:00] VITALS: BP 150/73
[2020-07-01] MEDS: oxyCODONE 5MG TAB PO SCH ×5 (06:18→21:21)
[2020-07-01 06:41] LABS: HEMOGLOBIN 14.4 g/dl (12.0-15.5); MEAN CORPUSCULAR HEMOGLOBIN 32.3 pg (27.0-33.0); MEAN CORPUSCULAR HGB CONC 33.5 g/dl (32.0-36.5); MEAN CORPUSCULAR VOLUME 96.4 fl (80.0-96.0); PLATELET COUNT, AUTOMATED 234 10^3/uL (150-450); RED BLOOD COUNT 4.46 10^6/uL (4.00-5.40)
[2020-07-01 07:15] LABS: BLOOD UREA NITROGEN 17 MG/DL (7-18); CALCIUM LEVEL 8.7 MG/DL (8.5-10.1); CARBON DIOXIDE LEVEL 32 MEQ/L (21-32); CHLORIDE LEVEL 101 MEQ/L (98-107); CREATININE FOR GFR 0.63 MG/DL (0.55-1.30); GLOMERULAR FILTRATION RATE > 60.0 (>51); GLUCOSE, FASTING 345 MG/DL (70-100); POTASSIUM SERUM 4.3 MEQ/L (3.5-5.1); SODIUM LEVEL 138 MEQ/L (136-145)
[2020-07-01] MEDS: MAGIC MOUTHWASH SUSPENSION BTL SSP SCH ×3 (07:30→18:22)
[2020-07-01] MEDS: LEVEMIR (INSULIN DETEMIR) 1 UNITS/0.01ML SC SCH (08:27)
[2020-07-01] MEDS: methylPREDNISolone 125MG 2ML VIAL IV SCH ×2 (08:27→21:18)
[2020-07-01] MEDS: HumaLOG INSULIN (NovoLOG) PER UNIT SC SCH ×4 (08:28→21:00)
[2020-07-01] MEDS: ENOXAPARIN 40MG/0.4ML SYRINGE (J1650 PER 10MG) SC SCH (08:31)
[2020-07-01] MEDS: ROSUVASTATIN 10 MG TAB (CRESTOR) PO SCH (08:31)
[2020-07-01] MEDS: DULoxetine 30 MG CAP (CYMBALTA) PO SCH (08:32)
[2020-07-01] MEDS: busPIRone 5 MG TAB PO SCH ×2 (08:32→16:23)
[2020-07-01] MEDS: lisinopriL 5 MG TAB PO SCH (08:32)
[2020-07-01] MEDS: SUCRALFATE 1 GM TAB PO SCH ×4 (08:32→21:18)
[2020-07-01] MEDS: CETIRIZINE (ZyrTEC) 10 MG TAB PO SCH (08:32)
[2020-07-01] MEDS: PREGABALIN 100 MG CAP (LYRICA) PO SCH ×3 (08:32→21:19)
[2020-07-01] MEDS: MUPIROCIN 2% OINT 22 GM TUBE TOP SCH ×2 (08:33→21:20)
--- NOTE | 2020-07-01 12:36 | IPNPDOC ---
Subjective Date Seen The patient was seen on 07/01/20. Subjective Chief Complaint/HPI Mrs. Craig is a 49 year old female with Lupus on immunosuppressive medication here with dyspnea and cough with sputum production. Overnight, she required oxygen. She may have a component of BERNARDINO. Otherwise, the sores in her mouth feel better today with the magic mouthwash and Solumedrol. The sore in her nose still hurt. Objective Physical Examination General Exam: Positive: Alert, Cooperative Eye Exam: Positive: EOMI; Negative: Sclera icteric ENT Exam: Positive: Atraumatic Neck Exam: Positive: Supple Chest Exam: Positive: Diminished Heart Exam: Positive: Rate Normal, Regular Rhythm Abdomen Exam: Positive: Normal bowel sounds, Soft; Negative: Tenderness Extremity Exam: Positive: Edema (bilateral) Neuro Exam: Positive: Normal Speech, Cranial Nerves 3-12 NL Psych Exam: Positive: Mental status NL, Mood NL Assessment /Plan Assessment Mrs. Craig is a 49 year old female with Lupus on immunosuppressive medication here with dyspnea, cough with sputum production and chest pain suspected to have recurrent pneumonia. Discussed with pulmonology, Dr. Whittaker. Dr. Whittaker touched base with Dr. Alonso. Most likely aspiration pneumonia from GERD. Start patient on aspiration cautions, PPI, and Carafate. Otherwise we'll treat the pneumonia with ceftriaxone which would cover Escherichia coli seen in her previous sputum culture. Otherwise, modified barium swallow was positive for aspiration. Pending recommendations from speech therapy. She does have lupus and she feels that she is starting to flare and have oral inflammation. On magic mouth wash and steroids Plan/VTE VTE Prophylaxis Ordered?: Yes Plan 1. Aspiration pneumonia -Recently admitted in 05/31/2020 for pneumonia -On immunosuppressives for Lupus -Produces sputum, desaturates to 88& at room air, leukocytosis, and low grade temp of 100.1 -Will treat as CAP. On ceftriaxone (completed azithromycin course) -Fungitell, legionella, and S.pneumo negative -Procalcitonin was elevated at 1.45 -Pulmonology consulted, recommendations appreciated. 2. Lupus -Has malar rash -On Belimumab on Mondays -Will hold Belimumab due to infection -Starting to flare. Solumedrol and Magic mouth wash 3. Diabetes mellitus -Hold metformin, Jardiance, and Bydureon, and continue basal insulin -Start sliding scale insulin -carbohydrate consistent diet 4. Fibromyalgia -Continue pain control regimen -Holding Celebrex at this time 5. Hypertension -Continue Lisinopril and Toprol XL 6. HLD -Continue Crestor 7. Aspiration -Speech therapy consulted -Modified barium swallow positive -Pending speech therapy recommendations 8. DVT ppx -Lovenox Disposition: Pending recommendations from speech therapy. Possible discharge home tomorrow VS, I&O, 24H, Fishbone Vital Signs/I&O Vital Signs Date Time Temp Pulse Resp B/P (MAP) Pulse Ox O2 Delivery O2 Flow Rate FiO2 07/01/20 09:10 18 07/01/20 08:32 146/87 07/01/20 06:48 Nasal Cannula 1.0 07/01/20 06:18 96 07/01/20 06:00 97.3 60 I&O- Last 24 Hours up to 6 AM 07/01/20 05:59 Intake Total 3110 ml Output Total 5320 ml Balance -2210 ml Laboratory Data 24H LABS Laboratory Tests 2 06/30/20 16:24: Bedside Glucose (Misc Panel) 419H 06/30/20 19:46: Bedside Glucose (Misc Panel) 446H 07/01/20 05:31: Nucleated Red Blood Cells % (auto) 0.0, Anion Gap 5L, Glomerular Filtration Rate > 60.0, Calcium Level 8.7 07/01/20 11:39: Bedside Glucose (Misc Panel) 374H CBC/BMP Laboratory Tests 07/01/20 05:31 Microbiology Microbiology 06/29/20 Gram Stain - Final, Complete 06/29/20 Sputum Culture - Final, Complete Yeast Like Organism 06/26/20 Blood Culture - Preliminary, Resulted No Growth after 72 hours. All specime... 06/26/20 Blood Culture - Final, Complete NO GROWTH AFTER 5 DAYS JAIDEN KELLER DO Jul 01, 2020 12:36
[2020-07-01 13:12] VITALS: BP 150/89
[2020-07-01] MEDS: cefTRIAXone SOD 1 GM in D5W MINI-BAG PLUS 50 ML IV SCH (16:22)
[2020-07-01] MEDS ORDERED: LEVEMIR (INSULIN DETEMIR) 1 UNITS/0.01ML SC SCH (21:00)
[2020-07-01] MEDS ORDERED: HumuLIN R (REGULAR) INSULIN (NovoLIN R) **100U/ML** PER UNIT SC STA (21:01)
[2020-07-01] MEDS: BACLOFEN 10 MG TAB PO SCH (21:19)
[2020-07-01] MEDS: PANTOPRAZOLE 40MG TAB (PROTONIX) PO SCH (21:19)
[2020-07-01] MEDS: oxyBUTYnin *DITROPAN XL* 5 MG TABCR PO SCH (21:19)
[2020-07-01] MEDS: QUEtiapine FUMARATE 50MG TAB PO SCH (21:19)
[2020-07-01] MEDS: IPRATROPIUM 0.03% NASAL SPRAY 30 ML (ATROVENT) SCH (21:20)
[2020-07-01] MEDS: METOPROLOL SUCC *XL* 25MG TAB (TopROL *XL*) PO SCH (21:20)
[2020-07-01 22:00] VITALS: BP 158/64
[2020-07-02 06:00] VITALS: BP 127/67
[2020-07-02] MEDS: oxyCODONE 5MG TAB PO SCH ×3 (06:11→13:28)
[2020-07-02 06:24] LABS: HEMATOCRIT 42.9 % (36.0-47.0); HEMOGLOBIN 14.3 g/dl (12.0-15.5); MEAN CORPUSCULAR HEMOGLOBIN 31.8 pg (27.0-33.0); MEAN CORPUSCULAR HGB CONC 33.3 g/dl (32.0-36.5); MEAN CORPUSCULAR VOLUME 95.3 fl (80.0-96.0); PLATELET COUNT, AUTOMATED 278 10^3/uL (150-450)
[2020-07-02 06:58] LABS: BLOOD UREA NITROGEN 16 MG/DL (7-18); CALCIUM LEVEL 9.1 MG/DL (8.5-10.1); CARBON DIOXIDE LEVEL 30 MEQ/L (21-32); CHLORIDE LEVEL 105 MEQ/L (98-107); CREATININE FOR GFR 0.63 MG/DL (0.55-1.30); GLOMERULAR FILTRATION RATE > 60.0 (>51); GLUCOSE, FASTING 175 MG/DL (70-100); POTASSIUM SERUM 4.1 MEQ/L (3.5-5.1); SODIUM LEVEL 138 MEQ/L (136-145)
[2020-07-02 08:00] VITALS: BP 130/70
[2020-07-02] MEDS: PREGABALIN 100 MG CAP (LYRICA) PO SCH (08:48)
[2020-07-02] MEDS: HumaLOG INSULIN (NovoLOG) PER UNIT SC SCH ×2 (08:50→11:55)
[2020-07-02] MEDS: LEVEMIR (INSULIN DETEMIR) 1 UNITS/0.01ML SC SCH (08:50)
[2020-07-02] MEDS: MAGIC MOUTHWASH SUSPENSION BTL SSP SCH ×2 (09:00→11:56)
[2020-07-02] MEDS: methylPREDNISolone 125MG 2ML VIAL IV SCH (09:02)
[2020-07-02] MEDS: ENOXAPARIN 40MG/0.4ML SYRINGE (J1650 PER 10MG) SC SCH (09:04)
[2020-07-02] MEDS: DULoxetine 30 MG CAP (CYMBALTA) PO SCH (09:04)
[2020-07-02] MEDS: ROSUVASTATIN 10 MG TAB (CRESTOR) PO SCH (09:05)
[2020-07-02] MEDS: SUCRALFATE 1 GM TAB PO SCH ×2 (09:05→11:54)
[2020-07-02] MEDS: CETIRIZINE (ZyrTEC) 10 MG TAB PO SCH (09:06)
[2020-07-02 09:07] VITALS: BP 130/70
[2020-07-02] MEDS: lisinopriL 5 MG TAB PO SCH (09:07)
[2020-07-02] MEDS: busPIRone 5 MG TAB PO SCH (09:08)
[2020-07-02] MEDS: MUPIROCIN 2% OINT 22 GM TUBE TOP SCH (09:08)
[2020-07-02] MEDS ORDERED: MAGICMW SSP (12:08)
[2020-07-02] MEDS ORDERED: MEDR4PAK PO (12:08)
[2020-07-02] MEDS ORDERED: SUCR1TA PO (13:13)
--- NOTE | 2020-07-02 22:54 | DS.PDOC ---
Discharge Summary General Date of Admission Jun 26, 2020 at 15:57 Date of Discharge Jul 02, 2020 Attending Physician: JAIDEN KELLER DO Specialist/Consultants [facility], Dr. Whittaker Discharge Summary PROCEDURES PERFORMED DURING STAY: None ADMITTING DIAGNOSES: 1. Recurrent pneumonia 2. Lupus 3. Diabetes mellitus 4. Fibromyalgia 5. Hypertension 6. Hyperlipidemia DISCHARGE DIAGNOSES: 1. Aspiration pneumonia 2. Lupus flare 3. Diabetes mellitus 4. Fibromyalgia 5. Hypertension 6. Hyperlipidemia 7. Aspiration COMPLICATIONS/CHIEF COMPLAINT: Atypical Pneumonia Dyspnea Lupus. HISTORY OF PRESENT ILLNESS: Mrs. Craig is a 49 year old female with Lupus on immunosuppressive medication here with dyspnea, cough with sputum production and chest pain. She was recently admitted on 05/31/2020 for frequent pneumonia and was seen by Dr. Alonso. Recommended treating it as CAP. Patient was to follow up in 4 weeks for re-evaluation and possible need for BAL with biopsy to look for other infection (like PCP), for possible alveolar hemorrhage, or for ILD. She was discharged with an antibiotic course and steroid taper which she finished about 7 to 10 days after admission. She was doing okay and had planned appointment on 07/16/[address] Alonso when she woke up with chills, chest pain, and dyspnea. Chest pain was across chest and describes it as alternating sharp and dull pain. Not pleuritic, but it was hard for her to take a deep breath. Ambulation/activity did not make it worse. She took Percocet, which did make it better. She tells me that she has history of costochondritis. In addition to her dyspnea, she also reports having a productive cough. She does not know what it looks like, but in the sputum sample cup, it was a dark maroon color. She said she did drink cola which may have discolored her sputum, but she does take Celebrex which may put her at risk for alveolar hemorrhage. She came into the ED. At room air, she desaturated down to 88 and required 2L to maintain oxygenation. She had a low grade temp at 100.1. Lungs sounds were diminished, but otherwise clear. Labs were significant for leukocytosis of 12.6 and lactic acid of 2.3. Troponin was negative. COVID was negative. CT angio of chest was negative for PE, but demonstrates new moderate primarily left sided airspace disease. Patient will be admitted for CAP. HOSPITAL COURSE: Further work up was negative for fungal infection, legionella, or strep pneumo. Procalcitonin was elevated at 1.45. Patient was treated with Ceftriaxone and Azithromycin. Consulted pulmonology, Dr. Whittaker. Dr. Whittaker spoke with Dr. Alonso. Suspected that patient has aspiration pneumonia. Previous sputum cultures grew E.coli. Consulted speech/swallow therapy who recommended modified barium swallow. The modified barium swallow was positive for laryngeal penetration. Swallow therapy recommended continued therapy after discharge as well as some techniques to help prevent aspiration. Otherwise, at night, patient does have some hypoxia which resolves in the day time. She most likely has a component of sleep apnea. Towards the end of her hospital stay, she started to develop a Lupus flare. She had sores in her nose and oral mucosa. Started on Magic Mouthwash and Solumedrol. Patient normally gets Medrol dose pack at pharmacy for flares. She felt better after starting Magic Mouthwash and Solumed rol. Today, she felt well. Denies chest pain, dyspnea, or abdominal pain. She felt ready for home and was subsequently discharged home. DISCHARGE MEDICATIONS: Please see below. ALLERGIES: Please see below. PHYSICAL EXAMINATION ON DISCHARGE: VITAL SIGNS: Please see below. GENERAL: Comfortable, in no apparent distress HEENT: Head normocephalic, atraumatic NECK: Supple CARDIOVASCULAR EXAMINATION: Regular rate and rhythm RESPIRATORY EXAMINATION: Diminished breath sounds ABDOMINAL EXAMINATION: Soft, non-tender, normal bowel sounds EXTREMITIES: Bilateral pitting edema SKIN: Warm and dry NEUROLOGICAL EXAMINATION: CN 3-12 grossly intact PSYCHIATRIC EXAMINATION: Normal mood and affect LABORATORY DATA: Please see below. IMAGING: CT angio chest 1. No evidence for pulmonary embolus. Normal thoracic aorta. 2. New moderate primarily left-sided airspace disease suggesting continued viral pneumonia. Modified barium swallow Laryngeal penetration with thin consistency barium. A detailed report of this examination will be provided by speech pathology. PROGNOSIS: Good ACTIVITY: As tolerated. DIET: Carbohydrate Consistent Diet DISCHARGE PLAN: Home DISPOSITION: , Self-Care. DISCHARGE INSTRUCTIONS: 1. Follow up with PCP in a week 2. Keep appointment with pulmonology 3. Speech/Swallow therapy referral DISCHARGE CONDITION: Stable. Total time spent on discharge planning, discharge summary, and medication reconciliation: 55 minutes Vital Signs/I&Os Vital Signs Date Time Temp Pulse Resp B/P (MAP) Pulse Ox O2 Delivery O2 Flow Rate FiO2 07/02/20 13:58 20 07/02/20 10:30 1.0 07/02/20 09:07 130/70 07/02/20 08:00 97.9 53 97 Nasal Cannula I&O- Last 24 Hours up to 6 AM 07/02/20 06:00 Intake Total 3630 ml Output Total 4050 ml Balance -420 ml Laboratory Data Labs 24H Laboratory Tests 2 07/01/20 23:32: Bedside Glucose (Misc Panel) 317H 07/02/20 05:59: Nucleated Red Blood Cells % (auto) 0.0, Anion Gap 3L, Glomerular Filtration Rate > 60.0, Calcium Level 9.1 07/02/20 11:40: Bedside Glucose (Misc Panel) 185H CBC/BMP Laboratory Tests 07/02/20 05:59 FSBS Laboratory Tests Test 07/01/20 23:32 07/02/20 11:40 Range/Units Bedside Glucose (Misc Panel) 317 185 70-105 MG/DL Microbiology Microbiology 06/29/20 Gram Stain - Final, Complete 06/29/20 Sputum Culture - Final, Complete Yeast Like Organism 06/26/20 Blood Culture - Final, Complete NO GROWTH AFTER 5 DAYS 06/26/20 Blood Culture - Final, Complete NO GROWTH AFTER 5 DAYS Discharge Medications Scheduled Baclofen (Baclofen) 10 Mg Tablet, 20 MG PO QHS, (Reported) Belimumab (Benlysta) 200 Mg/1 Ml Auto.injct, 200 MG SC QWEEK, (Reported) MONDAYS Calcium Carbonate/Vitamin D3 (Oyster Shell 500-Vit D3 200 Tb) 1 Each Tablet, 1 TAB PO DAILY, (Reported) Celecoxib (Celebrex) 200 Mg Capsule, 200 MG PO DAILY, (Reported) Cetirizine HCl (Cetirizine HCl) 10 Mg Tablet, 10 MG PO DAILY, (Reported) Cholecalciferol (Vitamin D3) (Vitamin D3) 125 Mcg Capsule, 125 MCG PO QWEEK, (Reported) FRIDAYS Duloxetine Hcl (Duloxetine HCl) 30 Mg Capsule.dr, 30 MG PO DAILY, (Reported) Duloxetine Hcl (Duloxetine HCl) 60 Mg Capsule.dr, 60 MG PO DAILY, (Reported) Empagliflozin (Jardiance) 25 Mg Tablet, 25 MG PO DAILY, (Reported) Exenatide Microspheres (Bydureon) 2 Mg/0.65 Ml Pen.injctr, 2 MG SC QWEEK, (Reported) MONDAYS Insulin Aspart (Novolog Flexpen) 100 Unit/1 Ml Insuln.pen, 1 DOSE SQ AC, (Reported) PER SLIDING SCALE Insulin Degludec (Tresiba Flextouch U-100) 100 Unit/1 Ml Insuln.pen, 42 UNIT SC DAILY, (Reported) Ipratropium [place] (Ipratropium [place]) 30 Ml Norvell, 2 SPRAY NARES QHS, (Reported) Lifitegrast (Xiidra) 5% Droperette, 1 DROP OU QHS, (Reported) Lisinopril (Lisinopril) 5 Mg Tablet, 5 MG PO DAILY, (Reported) Magic Mouthwash (First-Mouthwash Blm) 1 Ea Susp, 0 EA SSP AC Metformin HCl (Metformin HCl) 500 Mg Tablet, 1,000 MG PO BID, (Reported) Methylprednisolone (Medrol) 4 Mg Tab.ds.pk, 4 MG PO ASDIRECTED 6 on day 1 then reduce by one tablet daily until gone Metoprolol Succinate (Metoprolol Succinate) 25 Mg Tab.er.24h, 25 MG PO QHS, (Reported) Oxybutynin Chloride (Oxybutynin Chloride ER) 5 Mg Tab.er.24, 10 MG PO QHS, (Reported) Oxycodone HCl (Oxycodone HCl) 5 Mg Tablet, 5 MG PO 5XD, (Reported) Pantoprazole Sodium (Pantoprazole Sodium) 40 Mg Tablet.dr, 40 MG PO QHS, (R eported) Pregabalin (Lyrica) 200 Mg Capsule, 200 MG PO TID, (Reported) Vit,Calc76/Iron/Folic (Prenatabs Rx Tablet) 1 Each Tablet, 1 TAB PO DAILY, (Reported) Quetiapine Fumarate (Quetiapine Fumarate) 50 Mg Tablet, 150 MG PO QHS, (Reported) Rosuvastatin Calcium (Crestor) 10 Mg Tablet, 10 MG PO DAILY, (Reported) Sucralfate (Sucralfate) 1 Gm Tablet, 1 GM PO ACHS Scheduled PRN Acetaminophen (Acetaminophen) 325 Mg Tablet, 650 MG PO Q6H PRN for FEVER, (Reported) Albuterol Sulfate (Proair Hfa) 8.5 Gm Hfa.aer.ad, 2 PUFF INH QID PRN for SHORTNESS OF BREATH, (Reported) Baclofen (Baclofen) 10 Mg Tablet, 10 MG PO DAILY PRN for MUSCLE SPASMS, (Reported) Buspirone HCl (Buspirone HCl) 15 Mg Tablet, 15 MG PO QID PRN for ANXIETY, (Reported) Guaifenesin/Dextromethorphan (Mucinex Dm ER 600-30 mg Tablet) 1 Each Tab.er.12h, 1 TAB PO BID PRN for CONGESTION, (Reported) Lidocaine (Lidocaine) 120 Gm Oint...g., 1 APLCT TOP DAILY PRN for PAIN, (Reporte d) APPLY TO RIGHT SHOULDER, NECK Miconazole Nitrate (Miconazole Nitrate) 45 Gm Cream.appl, 1 APLCT TOP DAILY PRN for RASH/ITCHING, (Reported) APPLIES TO LABIA Naloxone HCl (Narcan) 4 Mg Norvell, 4 MG NA ASDIRECTED PRN for OVERDOSE, (Reported) Ondansetron (Ondansetron Odt) 4 Mg Tab.rapdis, 4 MG SL TID PRN for NAUSEA OR VOMITING, (Reported) Polyvinyl Alcohol (Polyvinyl Alcohol Eye Drops) 15 Ml Drops, 1 DROP OU TID PRN for DRY EYES, (Reported) Rizatriptan Benzoate (Rizatriptan) 10 Mg Tab.rapdis, 10 MG PO BID PRN for MIGRAINE, (Reported) Allergies Coded Allergies: lamotrigine (Verified Allergy, Mild, RASH, 12/13/19) Kiwi (Verified Allergy, Unknown, 06/24/17) JAIDEN KELLER DO Jul 02, 2020 22:54
== END 2020-07-02 14:56 | disposition home or self-care (01) | DRG 179 ==
LOC: M ED 11:20 → M ED INP 15:57 → ENRESERV 16:13 → M MSPAV 19:09
PROVIDERS: ADMIT Internal Medicine; ATTEND Internal Medicine
DX: J69.0 Pneumonitis due to inhalation of food and vomit (principal); I10 Essential (primary) hypertension; E11.9 Type 2 diabetes mellitus without complications; G47.00 Insomnia, unspecified; M79.7 Fibromyalgia; E78.5 Hyperlipidemia, unspecified; L93.0 Discoid lupus erythematosus; Z98.84 Bariatric surgery status; Z90.49 Acquired absence of other specified parts of digestive tract; Z20.822 Contact with and (suspected) exposure to COVID-19; Z88.8 Allergy status to other drugs, medicaments and biological substances; Z91.018 Allergy to other foods; Z79.899 Other long term (current) drug therapy; Z79.4 Long term (current) use of insulin

== ENCOUNTER → 2020-09-14 | Outpatient (CLI) | payer OTHER ==
[~2020-09-14] MED LIST changes: -ACET-908 PO; +ACET-910 PO; +MAGICMW SSP; +MEDR4PAK PO; +NOVOINJ3 SQ; +ONDA4TAB6 SL; +RIZA10TA58 PO; +SUCR1TA PO; +XIID5DRO OU
--- NOTE | 2020-09-14 16:00 | REPVR ---
PROCEDURE INFORMATION: Exam: CT Chest Without Contrast; Diagnostic Exam date and time: 09/14/2020 3:10 PM Age: 49 years old Clinical indication: Abnormal findings; Abnormal radiologic exam of lung or chest; Additional info: Abn finding of lung TECHNIQUE: Imaging protocol: Diagnostic computed tomography of the chest without contrast. 3D rendering (Not supervised by radiologist): MIP and/or 3D reconstructed images were created by the technologist. Radiation optimization: All CT scans at this facility use at least one of these dose optimization techniques: automated exposure control; mA and/or kV adjustment per patient size (includes targeted exams where dose is matched to clinical indication); or iterative reconstruction. COMPARISON: CT Chest without contrast 05/31/2020 4:40 PM FINDINGS: Lungs: Interval complete resolution of the right-sided perihilar probable viral pneumonia/pneumonitis which was seen on the previous CT chest study from 05/31/2020. Both lungs are well-aerated on today's study. Pleural spaces: Unremarkable. No pneumothorax. No pleural effusion. Heart: The heart size is normal. Normal pulmonary vasculature. No significant coronary artery calcification is present. A large epicardial fat pad is seen anterior to the heart. Aorta: No CT evidence of thoracic aortic aneurysm or acute intramural thoracic aortic hematoma. Lymph nodes: Unremarkable. No enlarged lymph nodes. Gallbladder and bile ducts: Prior cholecystectomy. The biliary ducts appear normal. Stomach and bowel: Prior gastric sleeve surgery. Bones/joints: Moderate chronic degenerative anterior vertebral body endplate osteophytic disease is seen in the mid to lower thoracic spine. Moderate levoscoliosis of the thoracic spine, apex at T7/T8. Soft tissues: Unremarkable. IMPRESSION: 1. The heart size is normal. Normal pulmonary vasculature. No significant coronary artery calcification is present. A large epicardial fat pad is seen anterior to the heart. 2. No CT evidence of thoracic aortic aneurysm or acute intramural thoracic aortic hematoma. 3. Interval complete resolution of the right-sided perihilar probable viral pneumonia/pneumonitis which was seen on the previous CT chest study from 05/31/2020. Both lungs are well-aerated on today's study. 4. Moderate chronic degenerative anterior vertebral body endplate osteophytic disease is seen in the mid to lower thoracic spine. 5. Moderate levoscoliosis of the thoracic spine, apex at T7/T8. 6. Prior gastric sleeve surgery. 7. Prior cholecystectomy. The biliary ducts appear normal. Electronically signed by: Kasi Villalta On 09/14/2020 15:59:46 PM
== END ==
LOC: M RAD 14:59
PROVIDERS: ATTEND Internal Medicine Pulmonary Disease
DX: R91.8 Other nonspecific abnormal finding of lung field (principal); Z98.84 Bariatric surgery status; M25.78 Osteophyte, vertebrae

== ENCOUNTER → 2020-11-15 | Outpatient (CLI) | payer OTHER ==
[~2020-11-15] MED LIST changes: +DICY1CAP8 PO; +FISH1000 PO; +METHACHOLINE KIT (J7674) INH ONE; -MICO2CRE TOP; +MICO45CR2 TOP
--- NOTE | 2020-11-15 13:42 | PFTRPT ---
Height: 64.00 Inches Weight: 250.00 Lbs BSA: 2.15 Diagnosis: R91.8 DATE: 11/15/2020 ORDERED BY: Calvin Alonso D.O. QUALITY: Study of excellent technical quality. PROCEDURE: Under protocol, methacholine was administered. Even after a maximal dose of 25 mg or 188.875 CDUs, no provocation dose ever achieved. IMPRESSION: Negative methacholine challenge study. MTDD
== END ==
LOC: M CARPUL 12:54
PROVIDERS: ATTEND Internal Medicine Pulmonary Disease
DX: R91.8 Other nonspecific abnormal finding of lung field (principal)
CPT/HCPCS: 94070; J7674

== ENCOUNTER → 2020-12-02 | Outpatient (CLI) | payer OTHER ==
[~2020-12-02] MED LIST changes: -METHACHOLINE KIT (J7674) INH ONE; +QUET1TAB17; +QUET1TAB17 PO; -QUET25TA3; -QUET25TA3 PO; -QUET50TA3 PO; +QUET50TA4 PO
--- NOTE | 2020-12-03 15:47 | SLEEPCENT ---
DATE: 12/02/2020 ORDERED BY: Calvin Alonso DO [facility] Nocturnal polysomnography was performed for evaluation of sleep physiology in this patient with a history of excessive somnolence and nonrestorative sleep. Eight hours and 46 minutes of data were reviewed. There were 471.5 minutes of sleep identified. Sleep latency was normal at 13.5 minutes. REM latency was normal at 100.5 minutes. Sleep architecture was good with four REM cycles. Overall sleep efficiency was 91.4%. The electrocardiogram showed a sinus rhythm with an average heart rate of 72 beats per minute. Rate ranged 60-100. EEG showed normal waveforms for wake and sleep. There were 315 respiratory events identified of 10 seconds in duration or greater for an apnea-hypopnea index of 40.1. The events were primarily obstructive, not exclusive to sleep stage nor body posture. Arousals from respiratory events occurred 3.1 times per hour, and oxygen desaturations were seen well into the 80s. There was some minor limb activity and snoring was noted over the entire study. IMPRESSIONS: Obstructive sleep apnea syndrome (G47.33). Apnea-hypopnea index 40.1. RECOMMENDATION: The patient should be encouraged to return to the [facility] for pressure therapy. In the interim, alcohol and sedative avoidance should be practiced and caution exercised during the operation of motor vehicles. cc: Alo Mckeon
== END ==
LOC: M SLEEP 20:00
PROVIDERS: ATTEND Internal Medicine Pulmonary Disease
DX: G47.33 Obstructive sleep apnea (adult) (pediatric) (principal)

== ENCOUNTER → 2021-01-02 | Outpatient (CLI) | payer OTHER ==
--- NOTE | 2021-01-03 16:34 | SLEEPCENT ---
DATE: 01/02/2021 ORDERED BY: Dr. Alonso Nocturnal polysomnography was performed for the titration of pressure therapy in this patient with obstructive sleep apnea syndrome, apnea-hypopnea index 40.1. For testing, a ResMed Quattro full-face mask of small size was used. There was 4 cm of water pressure applied to the circuit, and the lights were extinguished. There was 6 hours and 53 minutes of data reviewed. There was 391 minutes of sleep identified. Sleep latency was normal at 17.5 minutes. REM sleep was delayed at 356 minutes. Sleep architecture improved late in the study. There was a REM cycle. Overall sleep efficiency was 95.6%. The electrocardiogram showed a sinus rhythm with occasional PACs. Average heart rate 70 beats per minute. EEG showed normal waveforms for wake and sleep. Respiratory events were fully palliated with CPAP at a pressure of +10. Remaining measures of sleep physiology were normal. IMPRESSION: Obstructive sleep apnea syndrome (G47.33). RECOMMENDATION: Nightly use of pressure therapy, 10 cm of water.
== END ==
LOC: M SLEEP 20:00
PROVIDERS: ATTEND Physician Assistant
DX: G47.33 Obstructive sleep apnea (adult) (pediatric) (principal)

== ENCOUNTER 2021-03-22 07:28 | Day surgery (SDC) | payer OTHER ==
[~2021-03-22] VITALS: Ht 162.6 cm; Wt 110.2 kg
[~2021-03-22 07:28] MED LIST changes: +VITA1CAP25 PO
--- OUTSIDE RECORDS SUMMARY | 2021-03-22 07:31 | CCD | Continuity of Care Document ---
Author Author Radha PACE MD Organization Unknown Address [address] [place] [id number] Phone [phone] Care Team Providers Care Ethical Hacker Name Role Phone Yolanda Mckeon D.O. AUTM [phone] AUTM Unavailable AUTM Unavailable Problems Active Problems Provider Date Chronic rhinitis Selvin Manrique MD Onset: 08/30/2013 Difficulty breathing Selvin Manrique MD Onset: 08/30/2013 Type 2 diabetes mellitus JAMI Machado Onset: 04/01/2017 Nausea and vomiting Jason Pace MD Onset: 06/26/2017 Constipation Jason Pace MD Onset: 06/26/2017 Disturbance of consciousness Calvin Alonso D.O. Onset: 10/19 Social History Type Date Description Comments Sex Unknown Tobacco Use Start: Unknown Never Smoked Cigarettes ETOH Use Rarely consumes alcohol Tobacco Use Start: Unknown Patient has never smoked Smoking Status Reviewed: 12/13/20 Patient has never smoked Allergies and adverse reactions Active Allergies Criticality Reaction | Severity Comments Date Lamotrigine Unable to assess criticality 01/04/2015 Inactive Allergies NKDA Unable to assess criticality 08/30/2013 Medications Active Medications SIG Qnty Indications Ordering Provide r Date Miralax 17GM/Scoop Powder use as directed see dr pace colon preparation instructions 510gm K58.2 Uli Pace MD 02/13/2021 Magnesium Citrate 1.745GM/30ML Yelena ution one 10 oz bottle green or clear only, use for additional prep at 2-3 days before procedure 296ml K58.2 Jason Pace MD 02/13/2021 CPAP Device 10cm lcw Calvin Alonso D.O. 01/14/2021 Pantoprazole Sodium 40mg Tablets D R 1 by mouth twice a day (reflux, difficult swallowing) 60tabs K58.2 Jason Pace MD 08/13/2020 Dicyclomine HCL 10mg Capsules 1 to 2 by mouth every 6 hours as needed abdominal cramping 60caps K58.2 Jason Pace MD 08/13/2020 Rosuvastatin Calcium 10mg Tablets 1 tab by mouth every day Unknown Duloxetine HCL 60mg Caps DR Part 1 cap by mouth every day Unknown Montelukast Sodium 10mg Tablets 1 tab by mouth every day Unknown Tresiba Flextouch 10 0Unit/ML Solution Pen-Inject inject 42 units once daily Unknown 0 Sucralfate 1gm Tablets tab by mouth before meals 60tabs Unknown Novolog Flexpen 100U nit/ML Solution Pen-Inject inject 5 units before dinner every night Unknown Albuterol Sulfate HFA 108(90Base) mcg/Act Aerosol inhale two puffs by mouth four times a day as needed Unknown Rizatriptan Benzoate 10mg Tablets 1 tablet by mouth as needed Unknown Calcium Carbonate-Vitamin D 184-234lh-Wdnf Tablets 1 tablet by mouth daily Unknown Jardiance 25mg Tablets 1 tab by mouth every day Unknown Percocet 5-325mg Tablets 1 by mouth every 4 hours 5 x day Unknown Duloxetine HCL 30mg Caps DR Part 1 cap by mouth every day Unknown Pregabalin 100mg Capsules 2 caps by mouth every day Unknown Ipratropium Orange 0.06% Solution 2 intranasal puffs twice a day Unknown Metoprolol Succinate ER 25mg Tablets ER 24HR 1 tab by mouth every day Unknown Buspirone HCL 15mg Tablets 1 tab by mouth every 6 hours as needed Unknown 00 Oxybutynin Chloride ER 5mg Tablets ER 24HR 1 tab by mouth every day Unknown Baclofen 10mg Tablets 1 tab every afternoon and 2 tabs every night Unknown Seroquel 50mg Tablets 3 tabs by mouth at bedtime and 25 mg per day prn Unknown Zofran Odt 4mg Tablets Dispers 1 tab by mouth every 8 hours as needed 10tabs Unknown Celebrex 200mg Capsules 1 cap by mouth every day 30caps Unknown Cetirizine HCL 10mg Tablets 1 tab by mouth every day 90tabs Unknown Vitamin D 85184 Capsules 1 cap by mouth every week Unknown Lisinopril 5mg Tablets 1 tab by mouth every day 90{Tabs Unknown Immunizations Description No Information Available Vital Signs Date Vital Result Comment 02/13/2021 1:03pm BP Systolic 124 mmHg BP Diastolic 67 mmHg Height 64 inches 5'4" Weight 246.00 lb BMI (Body Mass Index) 42.2 kg/m2 [place] Body Weight 120 lb Weight 111.586 kg BSA (Body Surface Area) 2.14 m2 12/13/2020 2:04pm BP Systolic 120 mmHg BP Diastolic 78 mmHg Heart Rate 116 /min O2 % BldC Oximetry 92 % Height 64 inches 5'4" Weight 252.12 lb BMI (Body Mass Index) 43.3 kg/m2 [place] Body Weight 120 lb Weight 114.364 kg BSA (Body Surface Area) 2.16 m2 Results Description No Information Available Procedures Date Code Description Status 02/13/2021 39535 Office/Outpatient Established Lo w MDM 20-29 Min Completed 12/13/2020 80177 Office/Outpatient Established Lo w MDM 20-29 Min Completed 11/06/2020 25606 Office/Outpatient Established Lo w MDM 20-29 Min Completed 10/01/2020 52243 Office/Outpatient Established Mo d MDM 30-39 Min Completed 08/22/2020 33713 Diffusing Capacity Completed 08/22/2020 93851 Plethysmography Determination Dominick ng Volumes & Per Airway Resist Completed 08/22/2020 06684 Bronchospasm Evaluation Complete d Medical Devices Description No Information Available Encounters Type Date Location Provider Dx Diagnosis Office Visit 02/13/2021 1:00p [facility] Jason Pace MD K58.2 Mixed irritable bowel syndro me K21.9 Gastro-esophageal reflux dis ease without esophagitis R13.12 Dysphagia, oropharyngeal pha se R14.0 Abdominal distension (gaseou s) Z98.84 Bariatric surgery status Office Visit 12/13/2020 2:00p [facility] Wayne Contreras, P.A. G47.33 Obstructive sleep apnea (adult) (pediatr ic) Office Visit 11/06/2020 1:00p [facility] Calvin Se ars, D.O. R40.0 Somnolence Office Visit 10/01/2020 1:00p [facility] Calvin Se ars, D.O. R91.8 Other nonspecific abnormal finding of dominick ng field R06.00 Dyspnea, unspecified Assessments Date Code Description Provider 02/13/2021 K58.2 Mixed irritable bowel syndrome Hannah Pace MD 02/13/2021 K21.9 Gastro-esophageal reflux disease without esophagitis Jason Pace MD 02/13/2021 R13.12 Dysphagia, oropharyngeal phase Hannah Pace MD 02/13/2021 R14.0 Abdominal distension (gaseous) Hannah Pace MD 02/13/2021 Z98.84 Bariatric surgery status Jason avendaño MD 12/13/2020 G47.33 Obstructive sleep apnea (adult) (pediatric) Wayne Contreras, P.A. 11/06/2020 R40.0 Somnolence Calvin Sears, D.O. 10/01/2020 R91.8 Other nonspecific abnormal findi ng of lung field Calvin Sears, D.O. 10/01/2020 R06.00 Dyspnea, unspecified Calvin Sears, D.O. 08/22/2020 R91.8 Other nonspecific abnormal findi ng of lung field Pulmonary Lab Plan of Treatment Future Appointment(s):* 02/27/2021 3:30 pm - Wayne Contreras, P.A. at [facility] * 03/22/2021 8:05 am - Jason Pace MD at [facility] 02/13/2021 - Jason Pace MD* K58.2 Mixed irritable bowel syndrome * K21.9 Gastro-esophageal reflux disease without esophagitis * R13.12 Dysphagia, oropharyngeal phase * R14.0 Abdominal distension (gaseous) * Z98.84 Bariatric surgery status * * New Medication:* Magnesium Citrate 1.745 GM/30ML * Miralax 17 GM/Scoop * Recommendations:* egd and colonoscopy with random bx as planned Stool testing pending Functional Status Description No Information Available Mental Status Description No Information Available Referrals Refer to Dr Reason for Referral Status Appt Date [facility] [address] [place] [phone] Calvin Alonso D.O. [id number] OFFICE VISITS DX [facility] [address] [place], [place] [address] [phone]
--- OUTSIDE RECORDS SUMMARY | 2021-03-22 07:32 | CCD ---
Author Author [facility] Organization [facility] Address Unknown Phone Unavailable Care Team Providers Care Construction Consultant Name Role Phone GLADYS LABOY MD Unavailable Unavailable GLADYS LABOY MD Unavailable Unavailable GLADYS LABOY MD Unavailable Unavailable GLADYS LABOY MD Unavailable Unavailable GLADYS LABOY MD Unavailable Unavailable GLADYS LABOY MD Unavailable Unavailable GLADYS LABOY MD Unavailable Unavailable GLADYS LABOY MD Unavailable Unavailable GLADYS LABOY MD Unavailable Unavailable GLADYS LABOY MD Unavailable Unavailable GLADYS LABOY MD Unavailable Unavailable GLADYS LABOY MD Unavailable Unavailable GLADYS LABOY MD Unavailable Unavailable GLADYS LABOY MD Unavailable Unavailable GLADYS LABOY MD Unavailable Unavailable GLADYS LABOY MD Unavailable Unavailable GLADYS LABOY MD Unavailable Unavailable GLADYS LABOY MD Unavailable Unavailable GLADYS LABOY MD Unavailable Unavailable GLADYS LABOY MD Unavailable GLADYS Murdock MD Unavailable Unavailable GLADYS LABOY MD Unavailable Unavailable GLADYS LABOY MD Unavailable Unavailable GLADYS LABOY MD Unavailable Unavailable GLADYS LABOY MD Unavailable Unavailable GLADYS LABOY MD Unavailable Unavailable GLADYS LABOY MD Unavailable Unavailable GLADYS LABOY MD Unavailable Unavailable GLADYS LABOY MD Unavailable Unavailable BENOIT, GLADYS WESTBROOK Unavailable Unavailable BENOIT, GLADYS WESTBROOK Unavailable Unavailable BENOIT, GLADYS WESTBROOK Unavailable Unavailable BENOIT, GLADYS WESTBROOK Unavailable Unavailable BENOIT, GLADYS WESTBROOK Unavailable Unavailable BENOIT, GLADYS WESTBROOK Unavailable Unavailable BENOIT, GLADYS WESTBROOK Unavailable Unavailable BENOIT, GLADYS WESTBROOK Unavailable Unavailable BENOIT, GLADYS WESTBROOK Unavailable Unavailable BENOIT, GLADYS WESTBROOK Unavailable Unavailable BENOIT, GLADYS [place] Unavailable Unavailable BENOIT, GLADYS WESTBROOK Unavailable Unavailable BENOIT, GLADYS WESTBROOK Unavailable Unavailable BERRY BEJARANO MD Unavailable Unavailable [...] Unavailable Unavailable BERRY BEJARANO MD Unavailable Unavailable SEARS, A TEO DO Unavailable Unavailable SEARS, A TEO DO Unavailable Unavailable SEARS, A TEO DO Unavailable Unavailable SEARS, A TEO DO Unavailable Unavailable SEARS, A TEO DO Unavailable Unavailable SEARS, A TEO DO Unavailable Unavailable SEARS, A TEO DO Unavailable Unavailable SEARS, A TEO DO Unavailable Unavailable SEARS, A TEO DO Unavailable Unavailable SEARS, A TEO DO Unavailable Unavailable SEARS, A TEO DO Unavailable Unavailable SEARS, A TEO DO Unavailable Unavailable SEARS, A TEO DO Unavailable Unavailable SEARS, A TEO DO Unavailable Unavailable SEARS, A TEO DO Unavailable Unavailable SEARS, A TEO DO Unavailable Unavailable SEARS, A TEO DO Unavailable Unavailable SEARS, A TEO DO Unavailable Unavailable SEARS, A TEO DO Unavailable Unavailable SEARS, A TEO DO Unavailable Unavailable SEARS, A TEO DO Unavailable Unavailable SEARS, A TEO DO Unavailable Unavailable SEARS, A TEO DO Unavailable Unavailable SEARS, A TEO DO Unavailable Unavailable SEARS, A TEO DO Unavailable Unavailable SEARS, A TOE DO Unavailable Unavailable SEARS, A TEO DO Unavailable Unavailable SEARS, A TEO DO Unavailable Unavailable SEARS, A TEO DO Unavailable Unavailable SEARS, A TEO DO Unavailable Unavailable SEARS, A TEO DO Unavailable Unavailable SEARS, A TEO DO Unavailable Unavailable SEARS, A TEO DO Unavailable Unavailable SEARS, A TEO DO Unavailable Unavailable SEARS, A TEO DO Unavailable Unavailable SEARS, A TEO DO Unavailable Unavailable SEARS, A TEO DO Unavailable Unavailable SEARS, A TEO DO Unavailable Unavailable SEARS, A TEO DO Unavailable Unavailable SEARS, A TEO DO Unavailable Unavailable SEARS, A TEO DO Unavailable Unavailable SEARS, A TEO DO Unavailable Unavailable SEARS, A TEO DO Unavailable Unavailable SEARS, A TEO DO Unavailable Unavailable SEARS, A TEO DO Unavailable Unavailable SEARS, A TEO DO Unavailable Unavailable SEARS, A TEO DO Unavailable Unavailable SEARS, A TEO DO Unavailable Unavailable KELLIE, MAQBOOL ESDRAS Unavailable Unavailable KELLIE, MAQBOOL ESDRAS Unavailable Unavailable KELLIE, MAQBOOL ESDRAS Unavailable Unavailable KELLIE, MAQBOOL ESDRAS Unavailable Unavailable KELLIE, MAQBOOL ESDRAS MD Unavailable Unavailable KELLIE, MAQBOOL ESDRAS MD Unavailable Unavailable KELLIE, MAQBOOL ESDRAS MD Unavailable Unavailable KELLIE, MAQBOOL ESDRAS MD Unavailable Unavailable KELLIE, MAQBOOL ESDRAS MD Unavailable Unavailable KELLIE, MAQBOOL ESDRAS MD Unavailable Unavailable KELLIE, MAQBOOL ESDRAS MD Unavailable Unavailable KELLIE, MAQBOOL ESDRAS MD Unavailable Unavailable KELLIE, MAQBOOL ESDRAS MD Unavailable Unavailable KELLIE, MAQBOOL ESDRAS MD Unavailable Unavailable KELLIE, MAQBOOL ESDRAS MD Unavailable Unavailable KELLIE, MAQBOOL ESDRAS MD Unavailable Unavailable KELLIE, MAQBOOL ESDRAS MD Unavailable Unavailable KELLIE, MAQBOOL ESDRAS MD Unavailable Unavailable KELLIE, MAQBOOL ESDRAS MD Unavailable Unavailable KELLIE, MAQBOOL ESDRAS MD Unavailable Unavailable KELLIE, MAQBOOL ESDRAS MD Unavailable Unavailable KELLIE, MAQBOOL ESDRAS MD Unavailable Unavailable KELLIE, MAQBOOL ESDRAS MD Unavailable Unavailable KELLIE, MAQBOOL ESDRAS MD Unavailable Unavailable KELLIE, MAQBOOL ESDRAS MD Unavailable Unavailable KELLIE, MAQBOOL ESDRAS MD Unavailable Unavailable KELLIE, MAQBOOL ESDRAS MD Unavailable Unavailable KELLIE, MAQBOOL ESDRAS MD Unavailable Unavailable KELLIE, MAQBOOL ESDRAS MD Unavailable Unavailable KELLIE, MAQBOOL ESDRAS MD Unavailable Unavailable KELLIE, MAQBOOL ESDRAS MD Unavailable Unavailable KELLIE, MAQBOOL ESDRAS MD Unavailable Unavailable KELLIE, MAQBOOL ESDRAS MD Unavailable Unavailable KELLIE, MAQBOOL ESDRAS MD Unavailable Unavailable KELLIE, MAQBOOL ESDRAS MD Unavailable Unavailable KELLIE, MAQBOOL ESDRAS MD Unavailable Unavailable KELLIE, MAQBOOL ESDRAS MD Unavailable Unavailable KELLIE, MAQBOOL ESDRAS MD Unavailable Unavailable KELLIE, MAQBOOL ESDRAS MD Unavailable Unavailable KELLIE, MAQBOOL ESDRAS MD Unavailable Unavailable KELLIE, MAQBOOL ESDRAS MD Unavailable Unavailable KELLIE, MAQBOOL ESDRAS MD Unavailable Unavailable KELLIE, MAQBOOL ESDRAS MD Unavailable Unavailable KELLIE, MAQBOOL ESDRAS MD Unavailable Unavailable KELLIE, MAQBOOL ESDRAS MD Unavailable Unavailable KELLIE, MAQBOOL ESDRAS MD Unavailable Unavailable KELLIE, MAQBOOL ESDRAS MD Unavailable Unavailable KELLIE, MAQBOOL ESDRAS MD Unavailable Unavailable KELLIE, MAQBOOL ESDRAS MD Unavailable Unavailable KELLIE, MAQBOOL ESDRAS MD Unavailable Unavailable KELLIE, MAQBOOL ESDRAS MD Unavailable Unavailable KELLIE, MAQBOOL ESDRAS MD Unavailable Unavailable KELLIE, MAQBOOL ESDRAS MD Unavailable Unavailable KELLIE, MAQBOOL ESDRAS MD Unavailable Unavailable KELLIE, MAQBOOL ESDRAS MD Unavailable Unavailable KELLIE, MAQBOOL ESDRAS MD Unavailable Unavailable KELLIE, MAQBOOL ESDRAS MD Unavailable Unavailable KELLIE, MAQBOOL ESDRAS MD Unavailable Unavailable KELLIE, MAQBOOL ESDRAS MD Unavailable Unavailable KELLIE, MAQBOOL ESDRAS MD Unavailable Unavailable KELLIE, MAQBOOL ESDRAS MD Unavailable Unavailable KELLIE, MAQBOOL ESDRAS MD Unavailable Unavailable KELLIE, MAQBOOL ESDRAS MD Unavailable Unavailable KELLIE, MAQBOOL ESDRAS MD Unavailable Unavailable KELLIE, MAQBOOL ESDRAS MD Unavailable Unavailable KELLIE, MAQBOOL ESDRAS MD Unavailable Unavailable KELLIE, MAQBOOL ESDRAS MD Unavailable Unavailable KELLIE, MAQBOOL ESDRAS MD Unavailable Unavailable KELLIE, MAQBOOL ESDRAS MD Unavailable Unavailable KELLIE, MAQBOOL ESDRAS MD Unavailable Unavailable KELLIE, MAQBOOL ESDRAS MD Unavailable Unavailable KELLIE, MAQBOOL ESDRAS MD Unavailable Unavailable KELLIE, MAQBOOL ESDRAS MD Unavailable Unavailable KELLIE, MAQBOOL ESDRAS MD Unavailable Unavailable KELLIE, MAQBOOL ESDRAS MD Unavailable Unavailable KELLIE, MAQBOOL ESDRAS MD Unavailable Unavailable KELLIE, MAQBOOL ESDRAS MD Unavailable Unavailable KELLIE, MAQBOOL ESDRAS MD Unavailable Unavailable KELLIE, MAQBOOL ESDRAS MD Unavailable Unavailable DEVRIES, M JAGDEEP Unavailable Unavailable Devries, Jagdeep Unavailable Devries, Jagdeep Unavailable DESJARLAIS, SARAH PHOTOGRAPH MOUNTER Unavailable Unavailable DESJARLAIS, SARAH PHOTOGRAPH MOUNTER Unavailable Unavailable DESJARLAIS, SARAH PHOTOGRAPH MOUNTER Unavailable Unavailable DESJARLAIS, SARAH PHOTOGRAPH MOUNTER Unavailable Unavailable DESJARLAIS, SARAH PHOTOGRAPH MOUNTER Unavailable Unavailable DESJARLAIS, SARAH PHOTOGRAPH MOUNTER Unavailable Unavailable DESJARLAIS, SARAH PHOTOGRAPH MOUNTER Unavailable Unavailable DESJARLAIS, SARAH PHOTOGRAPH MOUNTER Unavailable Unavailable DESJARLAIS, SARAH PHOTOGRAPH MOUNTER Unavailable Unavailable DESJARLAIS, SARAH PHOTOGRAPH MOUNTER Unavailable Unavailable Zac Whittaker MD Unavailable Unavailable Zac Whittaker MD Unavailable Unavailable Zac Whittaker MD Unavailable Unavailable Zac Whittaker MD Unavailable Unavailable Zac Whittaker MD Unavailable Unavailable Zac Whittaker MD Unavailable Unavailable Zac Whittaker MD Unavailable Unavailable Zac Whittaker MD Unavailable Unavailable Zac Whittaker MD Unavailable Unavailable Zac Whittaker MD Unavailable Unavailable Zac Whittaker MD Unavailable Unavailable Zac Whittaker MD Unavailable Unavailable Zac Whittaker MD Unavailable Unavailable Zac Whittaker MD Unavailable Unavailable Zac Whittaker MD Unavailable Unavailable Zac Whittaker MD Unavailable Unavailable Zac Whittaker MD Unavailable Unavailable Zac Whittaker MD Unavailable Unavailable Zac Whittaker MD Unavailable Unavailable Zac Whittaker MD Unavailable Unavailable Zac Whittaker MD Unavailable Unavailable Zac Whittaker MD Unavailable Unavailable Zac Whittaker MD Unavailable Unavailable Zac Whittaker MD Unavailable Unavailable Zac Whittaker MD Unavailable Unavailable Zac Whittaker MD Unavailable Unavailable Zac Whittaker MD Unavailable Unavailable Zac Whittaker MD Unavailable Unavailable Zac Whittaker MD Unavailable Unavailable Zac Whittaker MD Unavailable Unavailable Zac Whittaker MD Unavailable Unavailable Zac Whittaker MD Unavailable Unavailable Zac Whittaker MD Unavailable Unavailable Zac Whittaker MD Unavailable Unavailable Zac Whittaker MD Unavailable Unavailable Zac Whittaker MD Unavailable Unavailable Zac Whittaker MD Unavailable Unavailable Zac Whittaker MD Unavailable Unavailable Zac Whittaker MD Unavailable Unavailable Zac Whittaker MD Unavailable Unavailable Zac Whittaker MD Unavailable Unavailable Zac Whittaker MD Unavailable Unavailable Zac Whittaker MD Unavailable Unavailable Zac Whittaker MD Unavailable Unavailable Zac Whittaker MD Unavailable Unavailable Zac Whittaker MD Unavailable Unavailable Zac Whittaker MD Unavailable Unavailable Zac Whittaker MD Unavailable Unavailable Zac Whittaker MD Unavailable Unavailable Zac Whittaker MD Unavailable Unavailable Zac Whittaker MD Unavailable Unavailable Zac Whittaker MD Unavailable Unavailable Zac Whittaker MD Unavailable Unavailable Zac Whittaker MD Unavailable Unavailable Whittaker, Zac Ruby MD Unavailable Unavailable LUND, M OKSANA PA Unavailable Unavailable LUND, M OKSANA PA Unavailable Unavailable LUND, M OKSANA PA Unavailable Unavailable LUND, M OKSANA PA Unavailable Unavailable LUND, M OKSANA PA Unavailable Unavailable LUND, M OKSANA PA Unavailable Unavailable LUND, M OKSANA PA Unavailable Unavailable LUND, M OKSANA PA Unavailable Unavailable LUND, M OKSANA PA Unavailable Unavailable LUND, M OKSANA PA Unavailable Unavailable LUND, M OKSANA PA Unavailable Unavailable LUND, M OKSANA PA Unavailable Unavailable LUND, M OKSANA PA Unavailable Unavailable LUND, M OKSANA PA Unavailable Unavailable LUND, M OKSANA PA Unavailable Unavailable LUND, M OKSANA PA Unavailable Unavailable LUND, M OKSANA PA Unavailable Unavailable LUND, M OKSANA PA Unavailable Unavailable LUND, M OKSANA PA Unavailable Unavailable LUND, M OKSANA PA Unavailable Unavailable LUND, M OKSANA PA Unavailable Unavailable LUND, M OKSANA PA Unavailable Unavailable LUND, M OKSANA PA Unavailable Unavailable LUND, M OKSANA PA Unavailable Unavailable LUND, M OKSANA PA Unavailable Unavailable LUND, M OKSANA PA Unavailable Unavailable LUND, M OKSANA PA Unavailable Unavailable LUND, M OKSANA PA Unavailable Unavailable LUND, M OKSANA PA Unavailable Unavailable LUND, M OKSANA PA Unavailable Unavailable LUND, M OKSANA PA Unavailable Unavailable LUND, M OKSANA PA Unavailable Unavailable LUND, M OKSANA PA Unavailable Unavailable LUND, M OKSANA PA Unavailable Unavailable LUND, M OKSANA PA Unavailable Unavailable Re-disclosure Warning The records that [...] is protected by Article 27-F of the [facility] Public Health law. If you continue you may have access to information: Regarding HIV / AIDS; Provided by facilities licensed or operated by the [facility] Office of Mental Health; or Provided by the [facility] Office for People With Developmental Disabilities. If such information is present, then the following [facility] mandated warning applies: This information has [...] law may result in a fine or retirement sentence or both. A general authorization for the release of medical or other information is NOT sufficient authorization for further disc losure. Family History Family Member Name Family Member Gender Family Member Status Date o f Status Description Data Source(s) Unknown Unknown Problem [facility] ([facility], ) Unknown Unknown Problem [facility] Unknown Unknown Problem [facility] ) Unknown Unknown Problem MEDENT ([facility], ) Unknown Female Problem MEDENT ([facility] ) Encounters Encounter Providers Location Date Indications Data Source(s ) Outpatient Attender: CORRINA BEJARANO MD 04/09/2021 12:00:00 A M [facility] Outpatient Attender: Jagdeep Devries 03/13/2021 02:00:00 PM [facility] Outpatient Attender: Jagdeep Devries 02/18/2021 02:00:00 PM [facility] Outpatient Attender: GLADYS Person/Renay/Jamar/Christian francisco 02/13/2021 01:00:00 PM EDT MEDENT ([facility] Outpatient Attender: CORRINA BEJARANO MD 02/12/2021 12:00:00 A M [facility] Outpatient Attender: SARAH BELCHER NP 01/18/2021 01: 20:00 PM [facility] Outpatient Attender: CORRINA BEJARANO MD 01/08/2021 12:00:00 A M [facility] Outpatient Attender: Jagdeep Devries 12/31/2020 02:00:00 PM [facility] Outpatient Attender: Jagdeep Ghoshd 12/17/2020 02:00:00 PM [facility] Outpatient Attender: OKSANA Person/[place]/Jamar/Rein dl 12/13/2020 02:00:00 PM EDT MEDENT ([facility] Outpatient Attender: Jagdeep Devries 11/13/2020 02:00:00 PM [facility] Outpatient Attender: TEO Ugaldeang/[place]/Jamar/Reindl 11/06/2020 01:00:00 PM EDT MEDENT ([facility], ) Outpatient Attender: Jagdeep Devries 10/30/2020 02:00:00 PM [facility] Outpatient Attender: ESDRSA CEDENO MD [facility] 10/18 03:00:00 PM EDT MEDENT ([facility]) Outpatient Attender: Jagdeep Devries 10/08/2020 02:00:00 PM [facility] Outpatient Attender: TEO Silva/[place]/Jamar/Reindl 10/01/2020 01:00:00 PM EDT MEDENT ([facility] ) Outpatient Attender: SARAH BELCHER NP 09/20/2020 02: 20:00 PM [facility] Outpatient Attender: Jagdeep Devries 09/19/2020 01:00:00 PM [facility] Outpatient Attender: GLADYS Person/[place]/Jamar/Rein dl 08/13/2020 01:45:00 PM EDT MEDENT ([facility], ) Outpatient Attender: Jagdeep Castellonttender: JAGDEEP DEVRIES 07/31/2020 02:00:00 PM [facility] Outpatient Attender: TEO Ugal[place]/Jamar/Reindl 07/26/2020 02:30:00 PM EDT MEDENT ([facility], ) Outpatient Attender: SARAH BELCHER NP 07/20/2020 02: 40:00 PM [facility] Outpatient Attender: CORRINA BEJARANO MD [id number] 07/03/2020 12:0 0:00 AM EDT Systemic lupus erythematosus, unspecified [facility] Systemic lupus erythematosus, unspecifie d Outpatient Attender: Tung Person/Renay/Jamar/R eiradhal 06/27/2020 12:23:00 AM EST MEDENT ([facility], ) Outpatient Attender: JAGDEEP DEVRIES 06/12/2020 02:00:00 PM [facility] Outpatient Attender: SARAH BELCHER NP 06/08/2020 01: 20:00 PM [facility] Outpatient Attender: TEO Silva/Renay/Jamar/Reindl 06/01/2020 12:23:00 AM EST MEDENT ([facility]) Outpatient Attender: JAGDEEP DEVRIES 05/15/2020 02:00:00 PM [facility] Outpatient Attender: JAGDEEP DEVRIES 05/02/2020 03:00:00 PM [facility] Outpatient Attender: JAGDEEP DEVRIES 04/17/2020 02:00:00 PM [facility] Outpatient Attender: SARAH BELCHER NP 04/04/2020 02: 00:00 PM [facility] Outpatient Attender: JAGDEEP DEVRIES 03/27/2020 02:00:00 PM [facility] Outpatient Attender: JAGDEEP DEVRIES 02/08/2020 01:00:00 PM [facility] Outpatient Attender: CORRINA BEJARANO MD 01/31/2020 12:00:00 A M [facility] Outpatient Attender: JAGDEEP DEVRIES 01/20/2020 01:00:00 PM [facility] Immunizations Vaccine Date Status Description Data Source(s) COVID-19 VACCINE Pfizer 09/04/2020 12:00:00 AM EDT completed [facility] Vaccine Series Complete: NOThis Data was Submitted to [facility] Via [employer]. Medications Medication Brand Name Start Date Product Form Dose Route Admi nistrative Instructions Pharmacy Instructions Status Indications Reaction Description Data Source(s) magnesium citrate 58.2 MG/ML Oral Solution Magnesium Citrate 02/13/2021 12:00:00 AM EDT active MEDENT ([facility], ) POLYETHYLENE GLYCOL 3350 142 MG/ML Oral Solution [Miralax] M iralax 02/13/2021 12:00:00 AM EDT active M EDENT ([facility], ) CPAP 01/14/2021 12:00:00 AM EDT active MEDENT ([facility]) Technetium TC 99M Sestamibi 09/13/2020 12:00:00 AM EDT completed MEDENT ([facility]) Medication administered onsite Dobutamine IV Injection 250MG 09/13/2020 12:00:00 AM EDT completed MEDENT ([facility]) Medication administered onsite 24 HR metoprolol succinate 25 MG Extended Release Oral Tablet Metoprolol Succinate ER 09/04/2020 12:00:00 AM EDT ORAL active MEDENT ([facility]) Dicyclomine Hydrochloride 10 MG Oral Capsule Dicyclomine HCL 08/13/2020 12:00:00 AM EDT ORAL active MEDENT ([facility]) Suprep Bowel Prep Kit Suprep Bowel Prep Kit 08/13/2020 12:00:00 AM EDT active MEDENT ([facility]) pantoprazole 40 MG Delayed Release Oral Tablet Pantoprazole Sodium 08/13/2020 12:00:00 AM EDT ORAL active M EDENT ([facility]) Magnesium Hydroxide 80 MG/ML Oral Suspension Milk Of Magnesi a 08/13/2020 12:00:00 AM EDT ORAL active M EDENT ([facility]) Insurance Providers Payer name Policy type / Coverage type Policy ID Covered constitution party ID Covered constitution party's relationship to fabian Policy Fabian Plan Information U [id number] Spouse [id number] U [id number] Spouse [id number] U [id number] Self [id number] [id number] 2 [id number] [place] F PLEASE GET SELF PLEASE GET EAST HUMANA [id number] [id number] U [id number] Self [id number] [place] Claims F [id number] SELF [id number] [place] Claims F [id number] SELF [id number] Health [facility] Health Maintenance Organization (O) 2 [id number] Family Dependent [id number] [facility] (2017) Health Maintenance [facility] (O) [id number] Family Dependent [id number] Health [facility] Health Maintenance Organization (HMO) [id number] Family Dependent [id number] [facility] (2017) Health Maintenance Organization (O) [id number] Family Dependent [id number] [facility] Organization (O) [id number] Family Dependent [id number] [facility] [id number] [facility] Organization (O) 2 [id number] Family Dependent [id number] SELF PAY ONLY UNAVAILABLE SP UNAV AILABLE [facility] Commercial [id number] Family Dependent [id number] [facility]/ AD O [id number] S [id number] [facility] BRANT O [id number] S [id number] [facility] Commercial [id number] Family Dependent [id number] Health [facility] Health Maintenance Organization (O) [id number] Family [facility] Commercial [id number] [facility] [id number] HU2 [id number] [facility] BRANT O [id number] S [id number] [facility] REGION WPS [id number] SPO [id number] [facility] REGION WPS [id number] SPO [id number] [facility] [id number] [employer] [facility] REG O [id number] C [id number] [facility] [employer] - O/P [id number] 01 [id number] ANSI-Not a Secondary Insurance [id number] ANSI-Commercial [id number] REGIONAL CLAIMS PAM -O/P [id number] Problems, Conditions, and Diagnoses Code Display Name Description Problem Type Effective Dates Data Source(s) G89.29 Other chronic pain OTHER CHRONIC PAIN Diagnosis 04/2020 01:20:00 PM [facility] F32.9 Major depressive disorder, single episod e, unspecified MAJOR DEPRESSIVE DISORDER, SINGLE EPISODE, UNSPECI Diagnosis 10/30/2020 02:00:00 PM [facility] F41.9 Anxiety disorder, unspecified ANXIETY DISORDER, UNSPEC IFIED Diagnosis 10/30/2020 02:00:00 PM [facility] F43.9 Reaction to severe stress, unspecified R EACTION TO SEVERE STRESS, UNSPECIFIED Diagnosis 10/30/2020 02:00:00 PM [facility] F43.23 Adjustment disorder with mixed anxiety a nd depressed mood ADJUSTMENT DISORDER WITH MIXED ANXIETY AND DEPRESS Diagnosis 06/08/2020 01:20:00 PM [facility] R40.0 Disturbance of consciousness Disturbance of consciousn ess Problem 11/06/2020 12:00:00 AM EDT MEDJOVITA ([facility], ) Surgeries/Procedures Procedure Description Date Indications Data Source(s) OFFICE OUTPATIENT VISIT 15 MINUTES 02/13/2021 12:00:00 AM EDT MEDENT ([facility]) OFFICE OUTPATIENT VISIT 15 MINUTES 12/13/2020 12:00:00 AM EDT MEDENT ([facility]) OFFICE OUTPATIENT VISIT 15 MINUTES 11/06/2020 12:00:00 AM EDT MEDENT ([facility]) OFFICE OUTPATIENT VISIT 25 MINUTES 10/18/2020 12:00:00 AM EDT MEDENT ([facility]) OFFICE OUTPATIENT VISIT 25 MINUTES 10/01/2020 12:00:00 AM EDT MEDENT ([facility]) MYOCARDIAL SPECT MULTIPLE STUDIES 09/13/2020 12:00:00 AM EDT MEDENT ([facility]) Bronchospasm Evaluation 08/22/2020 12:00:00 AM [facility]T [facility] Plethysmography Determination Lung Volumes & Per Airway Resi st 08/22/2020 12:00:00 AM EDT MEDENT ([facility]) DIFFUSING CAPACITY 08/22/2020 12:00:00 AM EDT MEDENT ([facility]) OFFICE OUTPATIENT NEW 45 MINUTES 08/13/2020 12:00:00 A M EDT MEDENT ([facility]) Spirometry 07/26/2020 12:00:00 AM EDT M EDENT ([facility]) OFFICE OUTPATIENT VISIT 25 MINUTES 07/26/2020 12:00:00 AM EDT [facility] ([facility]) [facility] HOSPITAL CARE/DAY 25 MINUTES 06/27/2020 12:00:00 AM EST [facility] ([facility]) [facility] HOSPITAL CARE/DAY 25 MINUTES 06/01/2020 12:00:00 AM EST [facility] ([facility]) Results ID Date Data Source [id number] 03/18/2021 11:00:00 AM EST [facility] Name Value Range Interpretation Code Description Data Glenda rce(s) Supporting Document(s) SARS coronavirus 2 RNA Not Detected [facility] [place] This lab was ordered by [facility] and reported by [facility]. ID Date Data Source [id number] 10/23/2020 10:26:00 AM EDT [facility] Name Value Range Interpretation Code Description Data Glenda rce(s) Supporting Document(s) SARS coronavirus 2 RNA Not Detected [facility] This lab was ordered by [facility] and reported by [facility]. ID Date Data Source [id number] 07/26/2020 02:25:00 PM EDT [facility] ([facility], ) Name Value Range Interpretation Code Description Data Glenda rce(s) Supporting Document(s) FVC-Pred 3.52 L [facility] ([facility], ) FVC-Pre 2.50 L [facility] ([facility]) PDFReport Laboratory test result [facility] ([facility]) FVC-LLN 2.83 L [facility] ([facility]) FVC-%Pred-Pre 70 L [facility] ([facility]) Fev1-Pred 2.78 L [facility] ([facility]) Fev1-Pre 1.80 L [facility] ([facility]) Fev1-LLN 2.20 L [facility] ([facility]) Fev1-%Pred-Pre 64 L [facility] ([facility]) Fev6-Pre 2.50 L [facility] ([facility]) Fev6-Pred 3.42 L [facility] ([facility]) Fev6-%Pred-Pre 72 L [facility] ([facility]) Dbr9jiu-Wsjt 80 % [facility] ([facility]) Fev6-LLN 2.74 L [facility] ([facility]) Pby1iix-Yni 72 % [facility] ([facility]) Ftx2gam-%Pred-Pre 90 % [facility] ([facility]) Idn1tla-RJC 70 % [facility] ([facility]) Qjk9cpx-Iajo 97 % [facility] ([facility]) Bvf3olk-%Pred-Pre 102 % [facility] ([facility]) Qeg0phh-Mnp 100 % [facility] ([facility], ) FEFMax-Pred 6.70 L/E/sec [facility] ([facility], ) FEFMax-Pre 2.86 L/E/sec [facility] ([facility], ) FEFMax-%Pred-Pre 42 L/E/sec [facility] ([facility]) FEFMax-LLN 4.98 L/E/sec [facility] ([facility], ) Bry2403-Qvrg 2.72 L/E/sec [facility] ([facility]) Ymg5281-Yxp 1.44 L/E/sec [facility] ([facility]) Syl7706-SII 1.48 L/E/sec [facility] ([facility]) Utz8868-%Pred-Pre 53 L/E/sec [facility] ([facility]) Xfk4jcx5-Exal 82 % [facility] ([facility], ) ExpTime-Pre 6.26 sec [facility] ([facility]) Grr3irb9-Iqd 72 % [facility] ([facility]) Obq5deu8-SYW 73 % [facility] ([facility]) Aki6grf2-%Pred-Pre 87 % [facility] ([facility]) ID Date Data Source [id number] 07/03/2020 03:28:26 PM EDT [facility] Name Value Range Interpretation Code Description Data Glenda e(s) Supporting Document(s) Progress Note [facility] UJAKVn9xYlRNFhXs52/OHMqbNDGvd0FcFLgzTBl1LVzrFBCqF3SfHQN0mM2xDIV2MXvMJnFjKjEmUwH1 [facility] [file] ICAgICAgICAgICAgICAgICAgICAgICAgICAgICAgICAgICAgICAgICAgICAgICAgICAgICAgICAgICAg ICAgICAgICAgICAgICAgICAgICAgICAgICAgICAgIC ANCiAgICAgICAgICAgICAgICAgICAgICAgICAgICAgICAgICAgICAgICAgICAgICAgICAgICAgICAgIC AgICAgICAgICAgICAgICAgICAgICAgICAgICAgICAgICAgICAgICAgICANCiAgICAgICAgICAgICAgIC AgICAgICAgICAgICAgICAgICAgICAgICAgICAgICAg ICAgICAgICAgICAgICAgICAgICAgICAgICAgICAgICAgICAgICAgICAgICAgICAgICAgICANCiAgICAg ICAgICAgICAgICAgICAgICAgICAgICAgICAgICAgICAgICAgICAgICAgICAgICAgICAgICAgICAgICAg ICAgICAgICAgICAgICAgICAgICAgICAgICAgICAgIC AgICANCiAgICAgICAgICAgICAgICAgICAgICAgICAgICAgICAgICAgICAgICAgICAgICAgICAgICAgIC AgICAgICAgICAgICAgICAgICAgICAgICAgICAgICAgICAgICAgICAgICAgICANCiAgICAgICAgICAgIC AgICAgICAgICAgICAgICAgICAgICAgICAgICAgICAg ICAgICAgICAgICAgICAgICAgICAgICAgICAgICAgICAgICAgICAgICAgICAgICAgICAgICAgICANCiAg ICAgICAgICAgICAgICAgICAgICAgICAgICAgICAgICAgICAgICAgICAgICAgICAgICAgICAgICAgICAg ICAgICAgICAgICAgICAgICAgICAgICAgICAgICAgIC AgICAgICANCiAgICAgICAgICAgICAgICAgICAgICAgICAgICAgICAgICAgICAgICAgICAgICAgICAgIC AgICAgICAgICAgICAgICAgICAgICAgICAgICAgICAgICAgICAgICAgICAgICAgICANCiAgICAgICAgIC AgICAgICAgICAgICAgICAgICAgICAgICAgICAgICAg ICAgICAgICAgICAgICAgICAgICAgICAgICAgICAgICAgICAgICAgICAgICAgICAgICAgICAgICAgICAN CiAgICAgICAgICAgICAgICAgICAgICAgICAgICAgICAgICAgICAgICAgICAgICAgICAgICAgICAgICAg ICAgICAgICAgICAgICAgICAgICAgICAgICAgICAgIC AgICAgICAgICANCjw/xRSnB3xayGSowsE9J6skAs0SYd3XDC5ex5JgDNLsRTqdygRvAapLBkUlVSEtYj vHKbs2EQxpFJ7CbOZfV6OfW4MpNBgiBA8EXQLuXUVlqUIlHWZjCKVfPaT9BTDoFCovRY1NnTDzPWycSP AwIFIgNyAwIFIgOSAwIFIgMTEgMCBSIDEzIDAgUiAx EIAqHPFcLRqdEAAPKVK9CBUmGfGyLULaFJIsQH2FAOPxX206cqYdBE2ARv9PRrZpLF9eax0HYODkOIHr RlaJYzl9BKmlNE5TmZCarWE1WjAbWVGDBgVtX2zwz0DbZIBrZTBQNCisPM5Wa8WprTIlRJw+Dz8AVG3r x7RfAUm0XyQkJP8ixc0AMAbSDzVwD3RkzJxtFRSob2 ptXAQsNW4iyOQiPLC2QMqbQL5alX5oBwDClCgeUYYsWOAgJh6cDa9vDIZcPBKiBdKbRMBSUT8DWAXcQW QbdFZuVYSfUIURIA4GSLwxJIH5ISUjgmNdmZOhVTuqZL9RRIBrqiBmCMUyHHSYEFp+Qz0IHE3gf6XtPA d0IcTcVD3akg6KLFmAXmFfH9D3kXOnG5W0WIpfHd9O AIHwFCSgAkbpBYIFDOlpXB0CRG9xpqH2BS4ZfQOiKRWcUQKnyBKsYMo3R02xbBLsIHupEB7LRER+Linda+ Xt1TTSDcHLUtQJCtFkMpSBCMYrGvW7FuY2YTl4GsQ6KhPV17pPwctuJuDAacXL2NCJ7iHIJpTTJTPX8A lMVafM9felY5FGNuGCMEVjVkL82xeTMeNQHoNAZkDM ImSf1VQUNaV7DzgaWqnNibnrEsNCTmMURDPN2NXJhvyvReaLPxfDlpKF98iFssVF8DXs9TFlTxRT4pcy 7CpRTlDz0NTMY7EW4NCIRcLBFwVEQaZKV5LWLzCgZeDOqqSYIxDMNfUVN3TXGiNFUtDX1EBxBqFWThFO q3FlQkJYEoXAPrzl6ILBGuUMU5PEKiVeSrZMGbNTLu DApgBBUzRSOsYVX3MYAvKIUuGZ2WRiSaOEGrNOH3CrFqLHPtSVMsdu7MZYUlSLQoJEN3ZkMhJYCjHVZn AHqzYUDbXOZ2MSX3MFOpGVUpWD6JLeXzVWUcZKs1THVcDYFrHCZdtk8GHDBjLSSmLiJySRXcFJRmUCIa JFhgQJRtRCDmKcF9BEIxPXVoMB4LPvGsFTFuSZH1HX TiVGIgAKPnfn0NLMLlHECnByO1VCKeQRRlTRNqEWbkZNPbCGBtUjL7TBJeNWQfTA4RTjJsBCWeTwP5Qw HgWOHtSSBnfe7FUHVjYLLjSvTbMBQwFIQxGAWhBIjqKUPcCWMzUzVcPRWpCRMiHX5UHbRnSZVnYdpsSC VrWANzTCUtip9ZWSLoEULvGkZ2AtDpXDVbVOMmIUzd NOXsEXGyUKzcNJXzAWWeKR8ZVkBmQFPpDxKrNIezONQsEWYomq0KSBHiEDZjFQj6UeFkCRZiSSUgULdt GCLoVTXcIWA3JMLgPLPqKJ8SJcOsKVFnIxZ7EhiqYPWpJHRgtj6WDAQpWGMvEnNkUSFjLZRdBVYrPNbw LQHfCCAzOeC3HZLlVFOzJC3JMeHqRPEvVoUhNuymXL TxKRJpkz5HDVEfGXTkIXM1TWNkNMCpAKWyGJjvJVTqISF8DxC7PDJcBVXqCZ5RSmKkUGDhCFKmBHcfBE QbMFWpqj7UQIVrOXW7XzGqXoKjJXTkGDWpYUwwFAMcQXH6WePqCOBjSZHmZX6AWnQeMIZqYDK9CbLtOA NaKSFwtc5ILMBuSQF7OjIcLkJeQTNeSJEjWKbzGCKa XDZ5RIEdRBIfTLAfUT8YXwLlYJKkLZosNVSxWJQlBRAnor6CMWZuHUH5YYOcHUSeNSOzZEAcDIadYQRz TLJ7PmxvHDFxXUOyFX5VVaXoAMDrDVi3DuWkTOLgUMLxnu8WHJVyLID4ELOwJSBfEAMhPBObGAtoQXLk ECQkCRkqEQHtTUJnCR7BIwUuWCGuWSD2GhHnIOAwSI Xacn5UEPIbHPF9UALbQVEaHOBhYPYdBKerGMYgSXFgQtdeXNXsRUXgLH3XVfIgOJudZKEGDba9ZWzsY5 r5DAX0DW9XI5Mtx3QdQIBgDXBZMUssNH7xfxFeSRVyDi6DI8nLIif0HOJzKMc0LZC5KxAdOMRvPeU4Do uyUhM7PKXyYralIP7gEBI4BjTzUMxrGup5HFZjDIJ4 UXh4ESZrVmXzYeOwXXI6OoXzEN8XNg2KOnT6MZR9lLExEe1JDYBhXdDDOuFtRW1EFOe= ID Date Data Source [id number] 06/26/2020 12:47:00 PM EST [facility] Name Value Range Interpretation Code Description Data Glenda rce(s) Supporting Document(s) SARS coronavirus 2 RNA [Presence] in Res piratory specimen by NAOMI with probe detection NEGATIVE [facility] This lab was ordered by [facility] a nd reported by [facility]. ID Date Data Source [id number] 05/31/2020 03:34:00 PM EST [facility] Name Value Range Interpretation Code Description Data Glenda rce(s) Supporting Document(s) SARS-CoV-2 (COVID 19) NEGATIVE - SARS-CoV-2 (COVID19) [facility] This lab was ordered by [facility] a nd reported by [facility]. ID Date Data Source [id number] 05/31/2020 01:44:00 PM EST [facility] Name Value Range Interpretation Code Description Data Glenda rce(s) Supporting Document(s) SARS coronavirus 2 RNA Not Detected [facility] This lab was ordered by [facility] and reported by [facility]. ID Date Data Source [id number] 05/06/2020 01:37:00 PM EST [facility] Name Value Range Interpretation Code Description Data Glenda rce(s) Supporting Document(s) SARS-CoV-2 (COVID 19) NEGATIVE - SARS-CoV-2 (COVID19) [facility] This lab was ordered by [facility] a nd reported by [facility]. Procedure Social History Code Duration Value Status Description Data Source(s ) Smoking 12/13/2020 12:00:00 AM EDT Patient has never smoked co mpleted Patient has never smoked [facility] ([facility]) Vital Signs ID Date Data Source UNK Name Value Range Interpretation Code Description Data Source(s) Systolic blood pressure 124 mm[Hg] 124 mm[Hg] [facility] ([facility]) Diastolic blood pressure 67 mm[Hg] 67 mm[Hg] [facility] ([facility]) Body height 64 [in_i] 64 [in_i] [facility] ([facility]) 5'4" Body weight 246.00 [lb_av] 246.00 [lb_av] [facility] ([facility]) Body mass index (BMI) [Ratio] 42.2 kg/m2 42.2 k g/m2 [facility] ([facility]) [place] body weight 120 [lb_av] 120 [lb_av] [facility] Body weight 111.586 kg 111.586 kg [facility] ([facility]) Body surface area Derived from formula 2.14 m2 2.14 m2 [facility] ([facility]) Systolic blood pressure 120 mm[Hg] 120 mm[Hg] [facility] ([facility]) Heart rate 116 /min 116 /min [facility] ([facility]) Oxygen saturation in Arterial blood by Pulse oximetry 92 % 92 % [facility] ([facility]) Body height 64 [in_i] 64 [in_i] [facility] ([facility]) 5'4" Diastolic blood pressure 78 mm[Hg] 78 mm[Hg] [facility] ([facility]) Body weight 252.12 [lb_av] 252.12 [lb_av] [facility] ([facility]) Body mass index (BMI) [Ratio] 43.3 kg/m2 43.3 k g/m2 [facility] ([facility]) [place] body weight 120 [lb_av] 120 [lb_av] [facility] ([facility]) Body weight 114.364 kg 114.364 kg [facility] ([facility]) Body surface area Derived from formula 2.16 m2 2.16 m2 [facility] ([facility]) Systolic blood pressure 122 mm[Hg] 122 mm[Hg] [facility] Diastolic blood pressure 80 mm[Hg] 80 mm[Hg] [facility] ([facility]) Heart rate 83 /min 83 /min [facility] ([facility]) Oxygen saturation in Arterial blood by Pulse oximetry 96 % 96 % [facility] ([facility]) Body mass index (BMI) [Ratio] 44.5 kg/m2 44.5 k g/m2 [facility] ([facility]) [place] body weight 120 [lb_av] 120 [lb_av] [facility] ([facility]) Body weight 117.482 kg 117.482 kg [facility] ([facility]) Body surface area Derived from formula 2.18 m2 2.18 m2 [facility] ([facility]) Body temperature 96.3 [degF] 96.3 [degF] [facility] ([facility]) Body height 64 [in_i] 64 [in_i] [facility] ([facility]) 5'4" Body weight 259.00 [lb_av] 259.00 [lb_av] [facility] ([facility]) Body height 64 [in_i] 64 [in_i] [facility] ([facility]) 5'4" Body weight 255.00 [lb_av] 255.00 [lb_av] [facility] ([facility]) Body mass index (BMI) [Ratio] 43.8 kg/m2 43.8 k g/m2 [facility] ([facility]) Body temperature 96.8 [degF] 96.8 [degF] [facility] ([facility]) Systolic blood pressure 129 mm[Hg] 129 mm[Hg] [facility] ([facility]) Diastolic blood pressure 87 mm[Hg] 87 mm[Hg] [facility] ([facility]) Heart rate 90 /min 90 /min [facility] ([facility]) Oxygen saturation in Arterial blood by Pulse oximetry 97 % 97 % [facility] ([facility]) Oxygen saturation in Arterial blood by Pulse oximetry 94 % 94 % [facility] ([facility]) Body temperature 96.3 [degF] 96.3 [degF] [facility] ([facility]) Body height 64 [in_i] 64 [in_i] [facility] ([facility]) 5'4" Body weight 259.00 [lb_av] 259.00 [lb_av] [facility] ([facility]) Body mass index (BMI) [Ratio] 44.5 kg/m2 44.5 k g/m2 [facility] ([facility]) [place] body weight 120 [lb_av] 120 [lb_av] [facility] ([facility]) Body weight 117.482 kg 117.482 kg [facility] ([facility]) Body surface area Derived from formula 2.18 m2 2.18 m2 [facility] ([facility]) Diastolic blood pressure 70 mm[Hg] 70 mm[Hg] [facility] ([facility]) Systolic blood pressure 120 mm[Hg] 120 mm[Hg] [facility] Heart rate 86 /min 86 /min [facility] ([facility]) Oxygen saturation in Arterial blood by Pulse oximetry 94 % 94 % [facility] ([facility]) Body temperature 96.3 [degF] 96.3 [degF] [facility] ([facility]) Body height 64 [in_i] 64 [in_i] [facility] ([facility]) 5'4" Body weight 259.00 [lb_av] 259.00 [lb_av] [facility] ([facility]) Body mass index (BMI) [Ratio] 44.5 kg/m2 44.5 k g/m2 [facility] ([facility]) [place] body weight 120 [lb_av] 120 [lb_av] [facility] Body weight 117.482 kg 117.482 kg [facility] ([facility]) Body surface area Derived from formula 2.18 m2 2.18 m2 [facility] ([facility]) Systolic blood pressure 133 mm[Hg] 133 mm[Hg] [facility] ([facility]) Diastolic blood pressure 77 mm[Hg] 77 mm[Hg] [facility] ([facility]) Body height 64 [in_i] 64 [in_i] [facility] ([facility]) 5'4" Body weight 252.00 [lb_av] 252.00 [lb_av] [facility] Body surface area Derived from formula 2.16 m2 2.16 m2 [facility] ([facility]) Body mass index (BMI) [Ratio] 43.3 kg/m2 43.3 k g/m2 [facility] ([facility]) [place] body weight 120 [lb_av] 120 [lb_av] [facility] Body weight 114.307 kg 114.307 kg [facility] ([facility]) Systolic blood pressure 120 mm[Hg] 120 mm[Hg] [facility] ([facility]) Diastolic blood pressure 80 mm[Hg] 80 mm[Hg] [facility] ([facility]) Heart rate 70 /min 70 /min [facility] ([facility]) Oxygen saturation in Arterial blood by Pulse oximetry 98 % 98 % [facility] ([facility]) Body temperature 96.1 [degF] 96.1 [degF] [facility] ([facility]) Body height 64 [in_i] 64 [in_i] [facility] ([facility]) 5'4" Body weight 254.00 [lb_av] 254.00 [lb_av] [facility] Body mass index (BMI) [Ratio] 43.6 kg/m2 43.6 k g/m2 [facility] ([facility]) [place] body weight 120 [lb_av] 120 [lb_av] [facility] Body weight 115.214 kg 115.214 kg [facility] ([facility]) Body surface area Derived from formula 2.17 m2 2.17 m2 [facility] ([facility])
[2021-03-22] MEDS ORDERED: NS 1,000 ML IV ONE (08:00)
[2021-03-22] MEDS ORDERED: GLYCOPYRROLATE INJ 0.2 MG/ML 2 ML VIAL As Ordered ONE (08:47)
[2021-03-22] MEDS ORDERED: LIDOCAINE 2% 100MG/5ML SDV (FOR ANES.) As Ordered ONE (08:47)
[2021-03-22] MEDS ORDERED: propofoL 200 MG/20 ML VIAL As Ordered ONE ×2 (08:47→08:56)
--- NOTE | 2021-03-22 08:55 | ROOR ---
Patient Name: Radha Craig Procedure Date: 03/22/2021 8:37 AM Date of : 1970 Age: 50 Room: [facility] Gender: Female Note Status: Finalized Procedure: Upper GI endoscopy Indications: Dyspepsia, Heartburn, Endoscopy to assess diarrhea in patient suspected of having disease of the small-bowel Providers: Jason Pace MD Referring MD: ADRIANNA RODAS MD Requesting Provider: Medicines: Monitored Anesthesia Care Complications: No immediate complications. Procedure: Pre-Anesthesia Assessment: - The heart rate, respiratory rate, oxygen saturations, blood pressure, adequacy of pulmonary ventilation, and response to care were monitored throughout the procedure. The Endoscope was introduced through the mouth, and advanced to the efferent jejunal loop. The upper GI endoscopy was accomplished without difficulty. The patient tolerated the procedure well. Findings: Diffuse, white plaques were found in the entire esophagus. The exam of the esophagus was otherwise normal. 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 The gastrojejunal anastomosis was characterized by healthy appearing mucosa. The cardia and gastric fundus were normal on retroflexion. The examined jejunum was normal. Biopsies were taken with a cold forceps in the gastric body for Helicobacter pylori testing. Biopsies for histology were taken with a cold forceps in the efferent jejunal loop for evaluation of celiac disease. Impression: - Esophageal plaques were found, suspicious for candidiasis. - James-en-Y gastrojejunostomy with gastrojejunal anastomosis characterized by healthy appearing mucosa. - Normal examined jejunum. - Biopsies were taken with a cold forceps for Helicobacter pylori testing. - Biopsies were taken with a cold forceps for evaluation of celiac disease. Recommendation: - Observe patient's clinical course. - Follow an antireflux regimen. - Nystatin suspension 100,000 units PO QID for 10 days. - (the script was sent to your pharmacy on file) Procedure Code(s): --- Professional --- 10201, Esophagogastroduodenoscopy, flexible, transoral; with biopsy, single or multiple Diagnosis Code(s): --- Professional --- R19.7, Diarrhea, unspecified R12, Heartburn R10.13, Epigastric pain Z98.0, Intestinal bypass and anastomosis status K22.9, Disease of esophagus, unspecified CPT copyright 2019 [employer]. All rights reserved. The codes documented in this report are preliminary and upon biomass power plant superintendent review may be revised to meet current compliance requirements. Jason Pace MD Jason Pace MD 03/22/2021 8:54:26 AM Electronically signed by Jason Pace MD Number of Addenda: 0 Note Initiated On: 03/22/2021 8:37 AM Estimated Blood Loss: Estimated blood loss: none.
--- NOTE | 2021-03-22 09:15 | ROOR ---
Patient Name: Radha Craig Procedure Date: 03/22/2021 8:38 AM Date of : 1970 Age: 50 Room: [facility] Gender: Female Note Status: Finalized Procedure: Colonoscopy Indications: Suspected irritable bowel syndrome, Change in bowel habits Providers: Jason Pace MD Referring MD: ADRIANNA RODAS MD Requesting Provider: Medicines: Monitored Anesthesia Care Complications: No immediate complications. Procedure: Pre-Anesthesia Assessment: - The heart rate, respiratory rate, oxygen saturations, blood pressure, adequacy of pulmonary ventilation, and response to care were monitored throughout the procedure. The Colonoscope was introduced through the anus and advanced to 10 cm into the ileum. The colonoscopy was performed without difficulty. The patient tolerated the procedure well. The quality of the bowel preparation was good. Findings: The perianal and digital rectal examinations were normal. Mild sigmoid diverticulosis and small internal hemorrhoids. Retroflexion in the right colon was performed. No other significant abnormalities were identified in a careful examination of the remainder of the colon. The terminal ileum appeared normal. Biopsies for histology were taken with a cold forceps from the entire colon for evaluation of microscopic colitis. Impression: - Mild sigmoid diverticulosis and small internal hemorrhoids. - The colon is otherwise normal. - The terminal ileum is normal. - Biopsies were taken with a cold forceps from the entire colon for evaluation of microscopic colitis. - (Irritable Bowel Syndrome/IBS suspected.) Recommendation: - Telephone endoscopist for pathology results in 2 weeks. Procedure Code(s): --- Professional --- 52137, Colonoscopy, flexible; with biopsy, single or multiple Diagnosis Code(s): --- Professional --- R19.4, Change in bowel habit CPT copyright 2019 [employer]. All rights reserved. The codes documented in this report are preliminary and upon medical insurance coder review may be revised to meet current compliance requirements. Jason Pace MD Jason Pace MD 03/22/2021 9:15:22 AM Electronically signed by Jason Pace MD Number of Addenda: 0 Note Initiated On: 03/22/2021 8:38 AM Estimated Blood Loss: Estimated blood loss: none.
[2021-03-22 09:35] VITALS: BP 127/67
== END 2021-03-22 09:37 | disposition home or self-care (01) ==
LOC: M OPP 07:28
PROVIDERS: ATTEND Internal Medicine Gastroenterology
DX: K57.30 Diverticulosis of large intestine without perforation or abscess without bleeding (principal); K64.8 Other hemorrhoids; R19.4 Change in bowel habit; K22.9 Disease of esophagus, unspecified; Z98.0 Intestinal bypass and anastomosis status; R10.13 Epigastric pain; M32.9 Systemic lupus erythematosus, unspecified; M79.9 Soft tissue disorder, unspecified; E11.9 Type 2 diabetes mellitus without complications; Z79.4 Long term (current) use of insulin; Z79.899 Other long term (current) drug therapy; Z88.8 Allergy status to other drugs, medicaments and biological substances

== ENCOUNTER 2021-05-22 13:35 | Inpatient (IN) | payer OTHER ==
[~2021-05-22] VITALS: Ht 162.6 cm; Wt 115.7 kg
[~2021-05-22 13:35] MED LIST changes: -CEFD1CAP8 PO; +CEFD300C41 PO; -LISI-898 PO; +LISI5TAB11 PO
[2021-05-22] MEDS: NS 1,000 ML IV SCH ×4 (13:55→21:55)
[2021-05-22 14:39] LABS: VENOUS BASE EXCESS -0.8 (-2.0-2.0); VENOUS O2 SATURATION 82.7 % (60.0-80.0); VENOUS PARTIAL PRESSURE CO2 45.3 mmHg (38.0-50.0); VENOUS PARTIAL PRESSURE O2 49.5 mmHg (30.0-50.0); VENOUS STANDARD HCO3 23.4 MEQ/L; VENOUS TOTAL CO2 26.4 MEQ/L (24.0-28.0)
[2021-05-22 14:42] LABS: BASO # 0.1 10^3/uL (0.0-0.2); BASO % 0.6 % (0.0-1.0); EOS # 0.1 10^3/uL (0.0-0.5); EOS % 0.4 % (0.0-3.0); HEMATOCRIT 48.4 % (36.0-47.0); HEMOGLOBIN 15.8 g/dl (12.0-15.5); LYMPH # 1.6 10^3/uL (1.5-5.0); LYMPH % 9.8 % (24.0-44.0); MEAN CORPUSCULAR HEMOGLOBIN 32.2 pg (27.0-33.0); MEAN CORPUSCULAR HGB CONC 32.6 g/dl (32.0-36.5); MEAN CORPUSCULAR VOLUME 98.8 fl (80.0-96.0); MONO # 1.4 10^3/uL (0.0-0.8); MONO % 8.4 % (2.0-8.0); PLATELET COUNT, AUTOMATED 310 10^3/uL (150-450); WHITE BLOOD COUNT 16.3 10^3/uL (4.0-10.0)
[2021-05-22 15:27] LABS: ALBUMIN 3.5 GM/DL (3.2-5.2); BILIRUBIN,DIRECT 0.3 MG/DL (0.0-0.2); BILIRUBIN,TOTAL 2.2 MG/DL (0.2-1.0); CALCIUM LEVEL 8.8 MG/DL (8.5-10.1); CREATININE FOR GFR 1.15 MG/DL (0.55-1.30); GLOMERULAR FILTRATION RATE 52.8 (>51); THYROID STIMULATING HORMONE 0.67 uIU/ML (0.358-3.740); TOTAL PROTEIN 6.8 GM/DL (6.4-8.2)
[2021-05-22] MEDS ORDERED: ISOVUE-370 76% 100ML VIAL As Ordered ONE (15:45)
[2021-05-22] MEDS ORDERED: PERCOCET 5MG/325MG TAB PO ONE (16:50)
[2021-05-22] MEDS ORDERED: cefTRIAXone SOD 1 GM in D5W MINI-BAG PLUS 50 ML IV ONE (17:25)
[2021-05-22] MEDS ORDERED: AZITHROMYCIN INJ 500 MG, VIAL MATE ADAPTER 1 EACH in NS 250 ML IV ONE (18:00)
[2021-05-22] MEDS ORDERED: DEXTROSE 50% 50 ML SYRINGE IV PRN (18:05)
[2021-05-22] MEDS ORDERED: IPRATROPIUM 0.5MG/ALBUTEROL 2.5MG INH SOL UD 3ML (DUONEB) NEB PRN (18:05)
[2021-05-22] MEDS ORDERED: VANCOMYCIN HCL 1,000 MG, VIAL MATE ADAPTER 1 EACH in NS 250 ML IV SCH (18:05)
[2021-05-22] MEDS ORDERED: GLUCAGON INJ 1MG VIAL SC PRN (18:05)
[2021-05-22] MEDS ORDERED: GLUCOSE 4GM CHEW TABLET PO PRN (18:05)
[2021-05-22] MEDS ORDERED: busPIRone 5 MG TAB PO PRN (18:40)
[2021-05-22] MEDS ORDERED: oxyCODONE 5MG TAB PO PRN (18:40)
[2021-05-22] MEDS ORDERED: QUEtiapine FUMARATE 25 MG TAB PO PRN (18:55)
[2021-05-22] MEDS ORDERED: BACL10TA2 PO ×2 (18:56)
[2021-05-22] MEDS ORDERED: LIDO1PAD TOP (18:56)
[2021-05-22] MEDS ORDERED: QUET50TA4 PO (18:56)
[2021-05-22] MEDS ORDERED: SUCR1TA PO ×2 (18:56→19:00)
[2021-05-22] MEDS ORDERED: BENL200I SC (18:56)
[2021-05-22] MEDS ORDERED: MEDR4PAK PO (18:56)
[2021-05-22] MEDS ORDERED: METF500T13 PO (18:56)
[2021-05-22] MEDS ORDERED: QUET1TAB17 PO (18:56)
[2021-05-22] MEDS ORDERED: BYDU2INJ7 SC (19:00)
[2021-05-22] MEDS ORDERED: HOME MED LIST COMPLETE! XX SCH (19:00)
[2021-05-22] MEDS ORDERED: LYRI150C PO (19:00)
[2021-05-22] MEDS ORDERED: PREG100CA PO (19:00)
[2021-05-22] MEDS: QUEtiapine FUMARATE 50MG TAB PO SCH (21:00)
[2021-05-22] MEDS: HumaLOG INSULIN (NovoLOG) PER UNIT SC SCH (21:00)
[2021-05-22] MEDS: IPRATROPIUM 0.5MG/ALBUTEROL 2.5MG INH SOL UD 3ML (DUONEB) NEB SCH (21:55)
[2021-05-22] MEDS: PREGABALIN 75 MG CAP(LYRICA) PO SCH (22:12)
[2021-05-22] MEDS: BACLOFEN 10 MG TAB PO SCH (22:13)
[2021-05-22] MEDS: SUCRALFATE 1 GM TAB PO SCH (22:16)
[2021-05-22] MEDS: METOPROLOL SUCC *XL* 25MG TAB (TopROL *XL*) PO SCH (22:16)
[2021-05-22] MEDS ORDERED: VANCOMYCIN HCL 1,000 MG, VIAL MATE ADAPTER 1 EACH in NS 250 ML IV ONE (23:00)
[2021-05-22] MEDS: HYDROCORTISONE 100 MG/2 ML VIAL (J1720 PER 1) IV SCH (23:32)
[2021-05-23] MEDS ORDERED: VANCOMYCIN HCL 1,000 MG, VIAL MATE ADAPTER 1 EACH in NS 250 ML IV ONE ×3
[2021-05-23] MEDS: QUEtiapine FUMARATE 50MG TAB PO SCH ×3 (00:45→21:55)
[2021-05-23] MEDS: NS 1,000 ML IV SCH ×3 (00:45→08:41)
[2021-05-23] MEDS: PIPERACILLIN/TAZOBACTAM SOD 3.375 GM in D5W MINI-BAG PLUS 50 ML IV SCH ×4 (03:00→20:57)
[2021-05-23 04:30] VITALS: BP 114/73
[2021-05-23] MEDS ORDERED: VANCOMYCIN HCL 750 MG, VIAL MATE ADAPTER 1 EACH in NS 250 ML IV SCH ×2 (05:00→06:00)
[2021-05-23 06:57] LABS: HEMATOCRIT 38.4 % (36.0-47.0); MEAN CORPUSCULAR HEMOGLOBIN 32.5 pg (27.0-33.0); MEAN CORPUSCULAR HGB CONC 32.3 g/dl (32.0-36.5); MEAN CORPUSCULAR VOLUME 100.8 fl (80.0-96.0); RED BLOOD COUNT 3.81 10^6/uL (4.00-5.40); WHITE BLOOD COUNT 8.8 10^3/uL (4.0-10.0)
[2021-05-23 07:12] LABS: HEMOGLOBIN 12.4 g/dl (12.0-15.5); PLATELET COUNT, AUTOMATED 201 10^3/uL (150-450)
[2021-05-23 07:27] LABS: ALBUMIN 2.5 GM/DL (3.2-5.2); ALT/SGPT 92 U/L (12-78); BILIRUBIN,TOTAL 1.5 MG/DL (0.2-1.0); BLOOD UREA NITROGEN 18 MG/DL (7-18); CALCIUM LEVEL 7.9 MG/DL (8.5-10.1); CARBON DIOXIDE LEVEL 26 MEQ/L (21-32); CHLORIDE LEVEL 110 MEQ/L (98-107); CREATININE FOR GFR 0.54 MG/DL (0.55-1.30); GLOMERULAR FILTRATION RATE > 60.0 (>51); GLUCOSE, FASTING 157 MG/DL (70-100); SODIUM LEVEL 140 MEQ/L (136-145); TOTAL PROTEIN 5.7 GM/DL (6.4-8.2)
[2021-05-23] MEDS: SUCRALFATE 1 GM TAB PO SCH ×5 (07:30→20:58)
[2021-05-23] MEDS: IPRATROPIUM 0.5MG/ALBUTEROL 2.5MG INH SOL UD 3ML (DUONEB) NEB SCH ×4 (07:42→20:00)
[2021-05-23] MEDS: HumaLOG INSULIN (NovoLOG) PER UNIT SC SCH ×4 (08:39→20:33)
[2021-05-23] MEDS: DULoxetine 30MG CAPSULE (CYMBALTA) PO SCH (08:40)
[2021-05-23] MEDS: PANTOPRAZOLE 40MG TAB (PROTONIX) PO SCH (08:40)
[2021-05-23] MEDS: BACLOFEN 10 MG TAB PO SCH ×2 (08:40→20:58)
[2021-05-23] MEDS: ROSUVASTATIN 10 MG TAB (CRESTOR) PO SCH (08:40)
[2021-05-23] MEDS: PREGABALIN 100 MG CAP (LYRICA) PO SCH (08:41)
[2021-05-23] MEDS: ENOXAPARIN 40MG/0.4ML SYRINGE (J1650 PER 10MG) SC SCH (08:42)
[2021-05-23] MEDS: HYDROCORTISONE 100 MG/2 ML VIAL (J1720 PER 1) IV SCH ×2 (08:42→20:57)
[2021-05-23] MEDS: oxyCODONE 5MG TAB PO PRN ×3 (12:32→21:42)
[2021-05-23 14:00] VITALS: BP 122/77
[2021-05-23 20:00] VITALS: BP 130/78
[2021-05-23] MEDS: PREGABALIN 75 MG CAP(LYRICA) PO SCH (20:58)
[2021-05-23] MEDS: METOPROLOL SUCC *XL* 25MG TAB (TopROL *XL*) PO SCH (20:59)
[2021-05-24] MEDS: IPRATROPIUM 0.5MG/ALBUTEROL 2.5MG INH SOL UD 3ML (DUONEB) NEB SCH ×4 (01:21→21:32)
[2021-05-24] MEDS: PIPERACILLIN/TAZOBACTAM SOD 3.375 GM in D5W MINI-BAG PLUS 50 ML IV SCH ×4 (02:25→21:40)
[2021-05-24 04:00] VITALS: BP 104/54
[2021-05-24] MEDS: oxyCODONE 5MG TAB PO PRN ×5 (05:00→21:47)
[2021-05-24 05:52] LABS: HEMATOCRIT 39.4 % (36.0-47.0); HEMOGLOBIN 12.7 g/dl (12.0-15.5); MEAN CORPUSCULAR HEMOGLOBIN 32.4 pg (27.0-33.0); MEAN CORPUSCULAR HGB CONC 32.2 g/dl (32.0-36.5); MEAN CORPUSCULAR VOLUME 100.5 fl (80.0-96.0); PLATELET COUNT, AUTOMATED 212 10^3/uL (150-450); RED BLOOD COUNT 3.92 10^6/uL (4.00-5.40); WHITE BLOOD COUNT 5.7 10^3/uL (4.0-10.0)
[2021-05-24 06:15] LABS: ALBUMIN 2.6 GM/DL (3.2-5.2); ALT/SGPT 79 U/L (12-78); BLOOD UREA NITROGEN 10 MG/DL (7-18); CALCIUM LEVEL 8.6 MG/DL (8.5-10.1); CARBON DIOXIDE LEVEL 28 MEQ/L (21-32); CHLORIDE LEVEL 111 MEQ/L (98-107); CREATININE FOR GFR 0.58 MG/DL (0.55-1.30); GLOMERULAR FILTRATION RATE > 60.0 (>51); GLUCOSE, FASTING 152 MG/DL (70-100); POTASSIUM SERUM 4.2 MEQ/L (3.5-5.1); SODIUM LEVEL 143 MEQ/L (136-145); TOTAL PROTEIN 6.3 GM/DL (6.4-8.2)
[2021-05-24] MEDS: HYDROCORTISONE 100 MG/2 ML VIAL (J1720 PER 1) IV SCH ×2 (08:49→21:40)
[2021-05-24] MEDS: ENOXAPARIN 40MG/0.4ML SYRINGE (J1650 PER 10MG) SC SCH (08:49)
[2021-05-24] MEDS: PANTOPRAZOLE 40MG TAB (PROTONIX) PO SCH (08:50)
[2021-05-24] MEDS: SUCRALFATE 1 GM TAB PO SCH ×4 (08:50→21:42)
[2021-05-24] MEDS: PREGABALIN 100 MG CAP (LYRICA) PO SCH (08:50)
[2021-05-24] MEDS: DULoxetine 30MG CAPSULE (CYMBALTA) PO SCH (08:50)
[2021-05-24] MEDS: ROSUVASTATIN 10 MG TAB (CRESTOR) PO SCH (08:50)
[2021-05-24] MEDS: HumaLOG INSULIN (NovoLOG) PER UNIT SC SCH ×4 (08:51→21:41)
[2021-05-24] MEDS: BACLOFEN 10 MG TAB PO SCH ×2 (08:51→21:41)
[2021-05-24 14:03] VITALS: BP 156/81
[2021-05-24 20:16] VITALS: BP 149/84
[2021-05-24] MEDS: METOPROLOL SUCC *XL* 25MG TAB (TopROL *XL*) PO SCH ×2 (21:00→22:10)
[2021-05-24] MEDS ORDERED: oxyBUTYnin *DITROPAN XL* 5 MG TABCR PO SCH (21:00)
[2021-05-24] MEDS: QUEtiapine FUMARATE 50MG TAB PO SCH (21:41)
[2021-05-24] MEDS: PREGABALIN 75 MG CAP(LYRICA) PO SCH (21:42)
[2021-05-24 22:10] VITALS: BP 149/84
[2021-05-24] MEDS ORDERED: SODIUM CHLORIDE NASAL 0.65% SPRAY BTL (OCEAN) PRN (23:10)
[2021-05-25] MEDS: IPRATROPIUM 0.5MG/ALBUTEROL 2.5MG INH SOL UD 3ML (DUONEB) NEB SCH ×3 (02:00→13:10)
[2021-05-25] MEDS: PIPERACILLIN/TAZOBACTAM SOD 3.375 GM in D5W MINI-BAG PLUS 50 ML IV SCH ×2 (03:37→08:45)
[2021-05-25] MEDS: oxyCODONE 5MG TAB PO PRN ×3 (03:38→11:32)
[2021-05-25 05:04] VITALS: BP 124/68
[2021-05-25 07:37] LABS: HEMATOCRIT 42.5 % (36.0-47.0); HEMOGLOBIN 13.8 g/dl (12.0-15.5); MEAN CORPUSCULAR HEMOGLOBIN 32.2 pg (27.0-33.0); MEAN CORPUSCULAR HGB CONC 32.5 g/dl (32.0-36.5); MEAN CORPUSCULAR VOLUME 99.1 fl (80.0-96.0); PLATELET COUNT, AUTOMATED 226 10^3/uL (150-450); RED BLOOD COUNT 4.29 10^6/uL (4.00-5.40); WHITE BLOOD COUNT 7.6 10^3/uL (4.0-10.0)
[2021-05-25 08:00] LABS: ALBUMIN 2.9 GM/DL (3.2-5.2); ALT/SGPT 73 U/L (12-78); BILIRUBIN,TOTAL 0.9 MG/DL (0.2-1.0); BLOOD UREA NITROGEN 10 MG/DL (7-18); CALCIUM LEVEL 8.8 MG/DL (8.5-10.1); CARBON DIOXIDE LEVEL 28 MEQ/L (21-32); CHLORIDE LEVEL 109 MEQ/L (98-107); CREATININE FOR GFR 0.72 MG/DL (0.55-1.30); GLOMERULAR FILTRATION RATE > 60.0 (>51); GLUCOSE, FASTING 182 MG/DL (70-100); SODIUM LEVEL 143 MEQ/L (136-145); TOTAL PROTEIN 6.7 GM/DL (6.4-8.2)
[2021-05-25] MEDS: HumaLOG INSULIN (NovoLOG) PER UNIT SC SCH (08:15)
[2021-05-25] MEDS: SUCRALFATE 1 GM TAB PO SCH (08:17)
[2021-05-25] MEDS: DULoxetine 30MG CAPSULE (CYMBALTA) PO SCH (08:17)
[2021-05-25] MEDS: PANTOPRAZOLE 40MG TAB (PROTONIX) PO SCH (08:17)
[2021-05-25] MEDS: PREGABALIN 100 MG CAP (LYRICA) PO SCH (08:18)
[2021-05-25] MEDS: BACLOFEN 10 MG TAB PO SCH (08:18)
[2021-05-25] MEDS: ROSUVASTATIN 10 MG TAB (CRESTOR) PO SCH (08:18)
[2021-05-25] MEDS: HYDROCORTISONE 100 MG/2 ML VIAL (J1720 PER 1) IV SCH (08:48)
[2021-05-25] MEDS: ENOXAPARIN 40MG/0.4ML SYRINGE (J1650 PER 10MG) SC SCH (08:52)
[2021-05-25 09:31] VITALS: BP 124/68
[2021-05-25] MEDS ORDERED: CEFU50TA PO (10:11)
== END 2021-05-25 12:45 | disposition home or self-care (01) | DRG 178 ==
LOC: EDBD 13:35 → M ED 13:35 → M ED INP 05-23 02:03 → ENRESERV 05-23 02:42 → M MS5PR 05-23 04:08
PROVIDERS: ADMIT Family Medicine; ATTEND Family Medicine
DX: J15.0 Pneumonia due to Klebsiella pneumoniae (principal); N17.9 Acute kidney failure, unspecified; M32.9 Systemic lupus erythematosus, unspecified; E11.9 Type 2 diabetes mellitus without complications; K58.9 Irritable bowel syndrome, unspecified; G47.00 Insomnia, unspecified; I11.9 Hypertensive heart disease without heart failure; M79.7 Fibromyalgia; Z90.49 Acquired absence of other specified parts of digestive tract; Z90.79 Acquired absence of other genital organ(s); E78.5 Hyperlipidemia, unspecified; R94.5 Abnormal results of liver function studies; Z98.84 Bariatric surgery status; Z79.899 Other long term (current) drug therapy; Z79.4 Long term (current) use of insulin; Z91.018 Allergy to other foods; Z88.8 Allergy status to other drugs, medicaments and biological substances; Z20.822 Contact with and (suspected) exposure to COVID-19

== ENCOUNTER 2021-06-15 16:35 | Inpatient (IN) | payer OTHER ==
[~2021-06-15] VITALS: Ht 162.6 cm; Wt 108.5 kg
[~2021-06-15 16:35] MED LIST changes: +BYDU2INJ7 SC; +CEFU50TA PO; +LIDO1PAD TOP; +LYRI150C PO
[2021-06-15] MEDS ORDERED: IPRATROPIUM 0.5MG/ALBUTEROL 2.5MG INH SOL UD 3ML (DUONEB) NEB ONE (17:15)
[2021-06-15] MEDS ORDERED: methylPREDNISolone 125MG 2ML VIAL IV ONE (17:15)
[2021-06-15] MEDS ORDERED: ALBUTEROL SULFATE 2.5 MG/0.5 ML INH NEB SOLN INH ONE (17:15)
[2021-06-15] MEDS ORDERED: ACETAMINOPHEN 325 MG TAB PO ONE (17:20)
[2021-06-15] MEDS ORDERED: PIPERACILLIN/TAZOBACTAM SOD 4.5 GM in D5W MINI-BAG PLUS 50 ML IV ONE (17:25)
[2021-06-15 17:35] LABS: ABG BASE EXCESS -1.4 (-2.0-2.0); ABG HCO3 23.8 MEQ/L (22.0-26.0); ABG O2 SATURATION 93.1 % (95.0-99.0); ABG PARTIAL PRESSURE CO2 42.1 mmHg (35.0-45.0); ABG PARTIAL PRESSURE O2 65.5 mmHg (75.0-100.0); ABG STANDARD HCO3 23.2 MEQ/L (22.0-26.0); ABG TOTAL CO2 25.1 MEQ/L (22.0-29.0); ABG pH (ARTERIAL) 7.371 UNITS (7.350-7.450)
[2021-06-15 17:42] LABS: RSV AMPLIFICATION NEGATIVE (NEGATIVE)
[2021-06-15 17:58] LABS: BASO % 0.2 % (0.0-1.0); EOS # 0.1 10^3/uL (0.0-0.5); EOS % 0.4 % (0.0-3.0); HEMATOCRIT 44.6 % (36.0-47.0); HEMOGLOBIN 15.1 g/dl (12.0-15.5); LYMPH # 1.3 10^3/uL (1.5-5.0); MEAN CORPUSCULAR HEMOGLOBIN 32.1 pg (27.0-33.0); MEAN CORPUSCULAR HGB CONC 33.9 g/dl (32.0-36.5); MEAN CORPUSCULAR VOLUME 94.9 fl (80.0-96.0); MONO # 0.9 10^3/uL (0.0-0.8); MONO % 5.5 % (2.0-8.0); NEUTROPHILS # 14.1 10^3/uL (1.5-8.5); NEUTROPHILS % 85.5 % (36.0-66.0); PLATELET COUNT, AUTOMATED 202 10^3/uL (150-450); WHITE BLOOD COUNT 16.6 10^3/uL (4.0-10.0)
[2021-06-15 18:39] LABS: ALBUMIN 3.3 GM/DL (3.2-5.2); ALT/SGPT 670 U/L (12-78); BILIRUBIN,DIRECT 0.3 MG/DL (0.0-0.2); BILIRUBIN,TOTAL 1.6 MG/DL (0.2-1.0); BLOOD UREA NITROGEN 10 MG/DL (7-18); CALCIUM LEVEL 8.6 MG/DL (8.5-10.1); CARBON DIOXIDE LEVEL 23 MEQ/L (21-32); CHLORIDE LEVEL 106 MEQ/L (98-107); CREATININE FOR GFR 0.71 MG/DL (0.55-1.30); GLOMERULAR FILTRATION RATE > 60.0 (>51); GLUCOSE, FASTING 185 MG/DL (70-100); NT-PRO BNP 212 PG/ML (<125); POTASSIUM SERUM 4.7 MEQ/L (3.5-5.1); SODIUM LEVEL 138 MEQ/L (136-145); TOTAL PROTEIN 6.5 GM/DL (6.4-8.2)
[2021-06-15] MEDS ORDERED: HOME MED LIST COMPLETE! XX SCH (18:50)
[2021-06-15] MEDS ORDERED: ISOVUE-370 76% 100ML VIAL As Ordered ONE (18:58)
[2021-06-15] MEDS ORDERED: oxyCODONE 5MG TAB PO ONE (19:00)
[2021-06-15 19:01] LABS: THYROID STIMULATING HORMONE 0.304 uIU/ML (0.358-3.740)
[2021-06-15 19:30] LABS: MB/CK RELATIVE INDEX 2.5 (< OR =4)
[2021-06-15 20:05] VITALS: O2SAT 93
[2021-06-15] MEDS ORDERED: NS 1,000 ML IV ONE (22:00)
[2021-06-15] MEDS ORDERED: GLUCAGON INJ 1MG VIAL SC PRN (22:05)
[2021-06-15] MEDS ORDERED: SODIUM CHLORIDE 0.9% 1000ML IV ONE (22:05)
[2021-06-15] MEDS ORDERED: DEXTROSE 50% 50 ML SYRINGE IV PRN (22:05)
[2021-06-15] MEDS ORDERED: GLUCOSE 4GM CHEW TABLET PO PRN (22:05)
[2021-06-15 22:50] LABS: APPEARANCE, URINE MANUAL CLEAR (CLEAR); COLOR, URINE MANUAL YELLOW (YELLOW)
[2021-06-15 22:52] LABS: BILIRUBIN, URINE MANUAL NEGATIVE (NEGATIVE); BLOOD URINE MANUAL NEGATIVE (NEGATIVE); GLUCOSE, URINE (UA) MANUAL 4+(1000 MG/DL) mg/dL (NEGATIVE); KETONE, URINE MANUAL NEGATIVE (NEGATIVE); LEUKOCYTE ESTERASE, URINE MAN TRACE (NEGATIVE); NITRITE, URINE MANUAL NEGATIVE (NEGATIVE); PROTEIN, URINE MANUAL NEGATIVE (NEGATIVE); SPECIFIC GRAVITY,URINE MANUAL 1.015 (1.002-1.035); UROBILINOGEN, URINE MANUAL NORMAL (NORMAL)
[2021-06-15 22:58] LABS: RBC, URINE 0-1 /hpf (0-3); SQUAMOUS EPITHELIAL CELL URINE MOD AMOUNT /hpf (SMALL AMT)
[2021-06-15 22:59] LABS: BACTERIA, URINE NONE SEEN; HYALINE CAST, URINE NONE SEEN /lpf (0-1)
[2021-06-15] MEDS ORDERED: ACETAMINOPHEN TAB 650MG DOSE (2X325MG) PO PRN (23:00)
[2021-06-15 23:10] VITALS: BP 114/69
[2021-06-15] MEDS: PIPERACILLIN/TAZOBACTAM SOD 4.5 GM in D5W MINI-BAG PLUS 50 ML IV SCH (23:41)
[2021-06-16] MEDS ORDERED: LIDOCAINE 5% (LIDODERM) PATCH TOP PRN
[2021-06-16] MEDS ORDERED: busPIRone 5 MG TAB PO PRN
[2021-06-16] MEDS: PANTOPRAZOLE 40MG TAB (PROTONIX) PO SCH ×3 (00:44→20:33)
[2021-06-16] MEDS: BACLOFEN 10 MG TAB PO SCH ×3 (00:44→20:34)
[2021-06-16] MEDS: PREGABALIN 75 MG CAP(LYRICA) PO SCH ×2 (00:45→20:34)
[2021-06-16] MEDS: QUEtiapine FUMARATE 50MG TAB PO SCH ×2 (00:45→20:33)
[2021-06-16] MEDS: oxyBUTYnin *DITROPAN XL* 5 MG TABCR PO SCH ×2 (00:45→20:34)
[2021-06-16] MEDS: METOPROLOL SUCC *XL* 25MG TAB (TopROL *XL*) PO SCH ×2 (00:46→20:33)
[2021-06-16] MEDS ORDERED: oxyCODONE 5MG TAB PO PRN ×2 (03:00)
[2021-06-16 06:00] VITALS: BP 129/78
[2021-06-16] MEDS: PIPERACILLIN/TAZOBACTAM SOD 4.5 GM in D5W MINI-BAG PLUS 50 ML IV SCH ×3 (06:16→18:08)
[2021-06-16] MEDS: HEPARIN SOD (PORCINE) 5000UNITS/ML 1ML VIAL/SYRINGE SC SCH ×3 (06:17→20:36)
[2021-06-16] MEDS ORDERED: SUCRALFATE 1 GM TAB PO SCH (07:30)
[2021-06-16 07:31] LABS: BLOOD UREA NITROGEN 14 MG/DL (7-18); CALCIUM LEVEL 8.8 MG/DL (8.5-10.1); CARBON DIOXIDE LEVEL 25 MEQ/L (21-32); CHLORIDE LEVEL 125 MEQ/L (98-107); CREATININE FOR GFR 0.66 MG/DL (0.55-1.30); GLOMERULAR FILTRATION RATE > 60.0 (>51); GLUCOSE, FASTING 195 MG/DL (70-100); POTASSIUM SERUM 4.6 MEQ/L (3.5-5.1); SODIUM LEVEL 139 MEQ/L (136-145)
[2021-06-16] MEDS: HumaLOG INSULIN (NovoLOG) PER UNIT SC SCH ×4 (08:37→20:36)
[2021-06-16] MEDS: PREGABALIN 100 MG CAP (LYRICA) PO SCH (08:38)
[2021-06-16] MEDS: DULoxetine 30MG CAPSULE (CYMBALTA) PO SCH (08:38)
[2021-06-16] MEDS: SUCRALFATE 1 GM TAB PO SCH ×4 (08:38→20:35)
[2021-06-16] MEDS: guaiFENesin ER 600 MG TAB PO SCH ×2 (08:38→20:34)
[2021-06-16] MEDS: lisinopriL 5 MG TAB PO SCH (08:40)
[2021-06-16] MEDS ORDERED: CelecoXIB (CeleBREX) 100 MG CAP PO SCH (09:00)
[2021-06-16] MEDS ORDERED: CALCIUM/VITAMIN D 500 MG TAB PO SCH (09:00)
[2021-06-16] MEDS: oxyCODONE 5MG TAB PO PRN ×3 (10:51→21:59)
[2021-06-16 14:00] VITALS: BP 122/77
[2021-06-16] MEDS: **NOTE PATIENT COMMENT** MISC XX SCH (21:00)
[2021-06-16 22:00] VITALS: BP 123/77
[2021-06-17] MEDS: PIPERACILLIN/TAZOBACTAM SOD 4.5 GM in D5W MINI-BAG PLUS 50 ML IV SCH ×2 (00:49→06:13)
[2021-06-17] MEDS: oxyCODONE 5MG TAB PO PRN ×4 (04:26→20:29)
[2021-06-17 06:00] VITALS: BP 116/71
[2021-06-17 06:10] LABS: HEMATOCRIT 38.9 % (36.0-47.0); MEAN CORPUSCULAR HEMOGLOBIN 32.2 pg (27.0-33.0); MEAN CORPUSCULAR HGB CONC 32.9 g/dl (32.0-36.5); MEAN CORPUSCULAR VOLUME 97.7 fl (80.0-96.0); PLATELET COUNT, AUTOMATED 173 10^3/uL (150-450); RED BLOOD COUNT 3.98 10^6/uL (4.00-5.40)
[2021-06-17] MEDS: SUCRALFATE 1 GM TAB PO SCH ×4 (06:13→20:28)
[2021-06-17 06:14] LABS: HEMOGLOBIN 12.8 g/dl (12.0-15.5)
[2021-06-17] MEDS: HEPARIN SOD (PORCINE) 5000UNITS/ML 1ML VIAL/SYRINGE SC SCH ×3 (06:14→20:27)
[2021-06-17 06:40] LABS: ALBUMIN 2.7 GM/DL (3.2-5.2); ALT/SGPT 319 U/L (12-78); BLOOD UREA NITROGEN 12 MG/DL (7-18); CALCIUM LEVEL 8.2 MG/DL (8.5-10.1); CARBON DIOXIDE LEVEL 26 MEQ/L (21-32); CHLORIDE LEVEL 110 MEQ/L (98-107); CREATININE FOR GFR 0.61 MG/DL (0.55-1.30); GLOMERULAR FILTRATION RATE > 60.0 (>51); GLUCOSE, FASTING 196 MG/DL (70-100); MAGNESIUM LEVEL 2.4 MG/DL (1.8-2.4); POTASSIUM SERUM 4.1 MEQ/L (3.5-5.1); SODIUM LEVEL 143 MEQ/L (136-145); TOTAL PROTEIN 5.4 GM/DL (6.4-8.2)
[2021-06-17] MEDS: DULoxetine 30MG CAPSULE (CYMBALTA) PO SCH (09:01)
[2021-06-17] MEDS: guaiFENesin ER 600 MG TAB PO SCH ×2 (09:02→20:28)
[2021-06-17] MEDS: CEFDINIR 300 MG CAP (OMNICEF) PO SCH ×2 (09:02→20:27)
[2021-06-17] MEDS: PANTOPRAZOLE 40MG TAB (PROTONIX) PO SCH ×2 (09:02→20:27)
[2021-06-17] MEDS: BACLOFEN 10 MG TAB PO SCH ×2 (09:03→22:00)
[2021-06-17] MEDS: DOXYCYCLINE HYCLATE 100MG TABLET PO SCH ×2 (09:05→20:28)
[2021-06-17] MEDS: lisinopriL 5 MG TAB PO SCH (09:05)
[2021-06-17] MEDS: PREGABALIN 100 MG CAP (LYRICA) PO SCH (09:06)
[2021-06-17] MEDS: HumaLOG INSULIN (NovoLOG) PER UNIT SC SCH ×4 (09:08→20:36)
[2021-06-17] MEDS: **NOTE PATIENT COMMENT** MISC XX SCH ×2 (09:17→21:00)
[2021-06-17] MEDS: METOPROLOL SUCC *XL* 25MG TAB (TopROL *XL*) PO SCH (20:28)
[2021-06-17] MEDS: oxyBUTYnin *DITROPAN XL* 5 MG TABCR PO SCH (20:28)
[2021-06-17 22:00] VITALS: BP 146/87
[2021-06-17] MEDS: PREGABALIN 75 MG CAP(LYRICA) PO SCH (22:00)
[2021-06-17] MEDS: QUEtiapine FUMARATE 50MG TAB PO SCH (22:01)
[2021-06-18] MEDS: SUCRALFATE 1 GM TAB PO SCH (05:35)
[2021-06-18] MEDS: oxyCODONE 5MG TAB PO PRN ×2 (05:35→11:39)
[2021-06-18] MEDS: HEPARIN SOD (PORCINE) 5000UNITS/ML 1ML VIAL/SYRINGE SC SCH (05:41)
[2021-06-18 06:00] VITALS: BP 128/73
[2021-06-18] MEDS ORDERED: CEFD300CAP PO (07:56)
[2021-06-18] MEDS ORDERED: DOXY100T PO (07:56)
[2021-06-18] MEDS: HumaLOG INSULIN (NovoLOG) PER UNIT SC SCH (08:07)
[2021-06-18] MEDS: CEFDINIR 300 MG CAP (OMNICEF) PO SCH (08:41)
[2021-06-18] MEDS: DULoxetine 30MG CAPSULE (CYMBALTA) PO SCH (08:41)
[2021-06-18 08:42] VITALS: BP 146/92
[2021-06-18] MEDS: PREGABALIN 100 MG CAP (LYRICA) PO SCH (08:42)
[2021-06-18] MEDS: lisinopriL 5 MG TAB PO SCH (08:42)
[2021-06-18] MEDS: PANTOPRAZOLE 40MG TAB (PROTONIX) PO SCH (08:42)
[2021-06-18] MEDS: guaiFENesin ER 600 MG TAB PO SCH (08:43)
[2021-06-18] MEDS: DOXYCYCLINE HYCLATE 100MG TABLET PO SCH (08:43)
[2021-06-18] MEDS: BACLOFEN 10 MG TAB PO SCH (08:43)
[2021-06-18] MEDS: **NOTE PATIENT COMMENT** MISC XX SCH (08:46)
== END 2021-06-18 12:10 | disposition home or self-care (01) | DRG 871 ==
LOC: M ED 16:35 → M ED INP 22:04 → ENRESERV 22:48 → M MS5PR 23:10
PROVIDERS: ADMIT Internal Medicine; ATTEND Family Medicine
DX: A41.9 Sepsis, unspecified organism (principal); J18.9 Pneumonia, unspecified organism; M32.9 Systemic lupus erythematosus, unspecified; E11.9 Type 2 diabetes mellitus without complications; G47.33 Obstructive sleep apnea (adult) (pediatric); K21.9 Gastro-esophageal reflux disease without esophagitis; F32.A Depression, unspecified; N32.81 Overactive bladder; R74.01 Elevation of levels of liver transaminase levels; Z79.4 Long term (current) use of insulin; Z79.84 Long term (current) use of oral hypoglycemic drugs; Z79.891 Long term (current) use of opiate analgesic; Z79.899 Other long term (current) drug therapy; Z88.8 Allergy status to other drugs, medicaments and biological substances; Z91.018 Allergy to other foods; Z20.822 Contact with and (suspected) exposure to COVID-19; Z90.49 Acquired absence of other specified parts of digestive tract; E87.8 Other disorders of electrolyte and fluid balance, not elsewhere classified

== ENCOUNTER 2021-07-31 10:36 | Inpatient (IN) | payer OTHER ==
[~2021-07-31] VITALS: Ht 162.6 cm; Wt 110.6 kg
[~2021-07-31 10:36] MED LIST changes: +CEFD300CAP PO; +DOXY100T PO
[2021-07-31] MEDS ORDERED: PROAAER10 INH (11:01)
[2021-07-31] MEDS ORDERED: DICY10CA13 (11:01)
[2021-07-31] MEDS ORDERED: ACETAMINOPHEN 325 MG TAB PO ONE (11:35)
[2021-07-31 12:15] LABS: BASO % 0.5 % (0.0-1.0); EOS % 0.6 % (0.0-3.0); HEMATOCRIT 43.5 % (36.0-47.0); HEMOGLOBIN 14.3 g/dl (12.0-15.5); LYMPH # 0.5 10^3/uL (1.5-5.0); LYMPH % 7.9 % (24.0-44.0); MEAN CORPUSCULAR HEMOGLOBIN 32.3 pg (27.0-33.0); MEAN CORPUSCULAR HGB CONC 32.9 g/dl (32.0-36.5); MEAN CORPUSCULAR VOLUME 98.2 fl (80.0-96.0); MONO # 0.4 10^3/uL (0.0-0.8); MONO % 6.5 % (2.0-8.0); NEUTROPHILS # 5.4 10^3/uL (1.5-8.5); NEUTROPHILS % 84.2 % (36.0-66.0); PLATELET COUNT, AUTOMATED 219 10^3/uL (150-450); RED BLOOD COUNT 4.43 10^6/uL (4.00-5.40); WHITE BLOOD COUNT 6.5 10^3/uL (4.0-10.0)
[2021-07-31] MEDS ORDERED: PIPERACILLIN/TAZOBACTAM SOD 4.5 GM in D5W MINI-BAG PLUS 50 ML IV ONE (12:20)
[2021-07-31] MEDS ORDERED: NS 3,200 ML in IV 1 EA IV ONE (12:20)
[2021-07-31 12:43] LABS: ALBUMIN 3.2 GM/DL (3.2-5.2); ALT/SGPT 375 U/L (12-78); BILIRUBIN,DIRECT 0.4 MG/DL (0.0-0.2); BILIRUBIN,TOTAL 1.5 MG/DL (0.2-1.0); BLOOD UREA NITROGEN 12 MG/DL (7-18); C REACTIVE PROTEIN QUANTITATIV 0.91 MG/DL (0.00-0.30); CALCIUM LEVEL 8.6 MG/DL (8.5-10.1); CARBON DIOXIDE LEVEL 27 MEQ/L (21-32); CHLORIDE LEVEL 105 MEQ/L (98-107); CREATININE FOR GFR 0.79 MG/DL (0.55-1.30); GLOMERULAR FILTRATION RATE > 60.0 (>51); GLUCOSE, FASTING 171 MG/DL (70-100); NT-PRO BNP 275 PG/ML (<125); POTASSIUM SERUM 3.9 MEQ/L (3.5-5.1); SODIUM LEVEL 141 MEQ/L (136-145); TOTAL PROTEIN 6.3 GM/DL (6.4-8.2)
[2021-07-31 12:56] LABS: ERYTHROCYTE SEDIMENTATION RATE 18 mm/hr (0-30)
[2021-07-31] MEDS ORDERED: oxyCODONE 5MG TAB PO ONE (13:10)
[2021-07-31 13:37] LABS: CK-MB VALUE MASS < 1.0 NG/ML (<3.6); CPK CREATINE PHOSPHOKINASE 60 U/L (26-192); MB/CK RELATIVE INDEX 1.67 (< OR =4)
[2021-07-31] MEDS ORDERED: ACETAMINOPHEN TAB 650MG DOSE (2X325MG) PO PRN (16:20)
[2021-07-31] MEDS ORDERED: DEXTROSE 50% 50 ML SYRINGE IV PRN (16:20)
[2021-07-31] MEDS ORDERED: GLUCOSE 4GM CHEW TABLET PO PRN (16:20)
[2021-07-31] MEDS ORDERED: GLUCAGON INJ 1MG VIAL SC PRN (16:20)
[2021-07-31] MEDS ORDERED: CELE1CAP7 PO (16:32)
[2021-07-31] MEDS ORDERED: VITA1CAP25 PO (16:46)
[2021-07-31] MEDS ORDERED: VITMTA PO (16:46)
[2021-07-31] MEDS ORDERED: NOVOINJ3 SC (16:46)
[2021-07-31] MEDS ORDERED: LIDOCAINE 5% (LIDODERM) PATCH TOP PRN (16:50)
[2021-07-31] MEDS ORDERED: busPIRone 5 MG TAB PO PRN (16:50)
[2021-07-31] MEDS ORDERED: QUEtiapine FUMARATE 25 MG TAB PO PRN (16:50)
[2021-07-31] MEDS ORDERED: HOME MED LIST COMPLETE! XX SCH (16:50)
[2021-07-31] MEDS ORDERED: ALBUTEROL 90 MCG/ACT 8GM HFA INHALER INH PRN (16:50)
[2021-07-31] MEDS: HumaLOG INSULIN (NovoLOG) PER UNIT SC SCH ×2 (17:30→20:47)
[2021-07-31 17:45] VITALS: BP 115/61
[2021-07-31] MEDS ORDERED: PIPERACILLIN/TAZOBACTAM SOD 4.5 GM in D5W MINI-BAG PLUS 100 ML IV SCH ×2 (18:00→21:00)
[2021-07-31] MEDS: oxyCODONE 5MG TAB PO PRN ×2 (18:44→23:24)
[2021-07-31] MEDS: SUCRALFATE 1 GM TAB PO SCH ×2 (18:44→20:39)
[2021-07-31 20:00] VITALS: BP 119/59; O2SAT 98
[2021-07-31 20:34] LABS: HEPATITIS B SURFACE ANTIGEN NEGATIVE (NEGATIVE); HEPATITIS C VIRUS ABY INDEX 0.1 INDEX (<0.8)
[2021-07-31] MEDS: PANTOPRAZOLE 40MG TAB (PROTONIX) PO SCH (20:39)
[2021-07-31] MEDS: METOPROLOL SUCC *XL* 25MG TAB (TopROL *XL*) PO SCH (20:39)
[2021-07-31] MEDS: oxyBUTYnin *DITROPAN XL* 5 MG TABCR PO SCH (20:39)
[2021-07-31] MEDS: PREGABALIN 75 MG CAP(LYRICA) PO SCH (20:40)
[2021-07-31] MEDS: **NOTE PATIENT COMMENT** MISC XX SCH (20:42)
[2021-07-31 21:00] VITALS: O2SAT 98
[2021-07-31] MEDS ORDERED: SUCRALFATE 1 GM TAB PO SCH (21:00)
[2021-07-31] MEDS ORDERED: QUEtiapine FUMARATE 50MG TAB PO SCH (21:00)
[2021-07-31] MEDS ORDERED: BACLOFEN 10 MG TAB PO SCH (21:00)
[2021-07-31 22:00] VITALS: O2SAT 97
[2021-07-31 23:00] VITALS: O2SAT 99
[2021-07-31] MEDS: BACLOFEN 10 MG TAB PO SCH (23:21)
[2021-07-31] MEDS: PIPERACILLIN/TAZOBACTAM SOD 4.5 GM in D5W MINI-BAG PLUS 100 ML IV SCH (23:22)
[2021-07-31] MEDS: QUEtiapine FUMARATE 50MG TAB PO SCH (23:22)
[2021-07-31 23:43] VITALS: BP 130/74
[2021-08-01] VITALS (19 sets, daily range): BP systolic 109–146; BP diastolic 59–77; O2SAT 89–99
[2021-08-01] MEDS: PIPERACILLIN/TAZOBACTAM SOD 4.5 GM in D5W MINI-BAG PLUS 100 ML IV SCH ×4 (05:19→23:04)
[2021-08-01] MEDS: oxyCODONE 5MG TAB PO PRN ×4 (05:19→21:32)
[2021-08-01 05:47] LABS: HEMATOCRIT 37.3 % (36.0-47.0); HEMOGLOBIN 12.4 g/dl (12.0-15.5); MEAN CORPUSCULAR HEMOGLOBIN 32.9 pg (27.0-33.0); MEAN CORPUSCULAR HGB CONC 33.2 g/dl (32.0-36.5); MEAN CORPUSCULAR VOLUME 98.9 fl (80.0-96.0); PLATELET COUNT, AUTOMATED 195 10^3/uL (150-450); RED BLOOD COUNT 3.77 10^6/uL (4.00-5.40); WHITE BLOOD COUNT 9.5 10^3/uL (4.0-10.0)
[2021-08-01 05:52] LABS: ALBUMIN 2.6 GM/DL (3.2-5.2); ALT/SGPT 201 U/L (12-78); BILIRUBIN,TOTAL 1.6 MG/DL (0.2-1.0); BLOOD UREA NITROGEN 8 MG/DL (7-18); CALCIUM LEVEL 8.5 MG/DL (8.5-10.1); CARBON DIOXIDE LEVEL 23 MEQ/L (21-32); CHLORIDE LEVEL 114 MEQ/L (98-107); GLOMERULAR FILTRATION RATE > 60.0 (>51); GLUCOSE, FASTING 108 MG/DL (70-100); MAGNESIUM LEVEL 2.1 MG/DL (1.8-2.4); POTASSIUM SERUM 3.9 MEQ/L (3.5-5.1); SODIUM LEVEL 143 MEQ/L (136-145); TOTAL PROTEIN 5.5 GM/DL (6.4-8.2)
[2021-08-01] MEDS: lisinopriL 5 MG TAB PO SCH (08:24)
[2021-08-01] MEDS: BACLOFEN 10 MG TAB PO SCH ×2 (08:25→23:04)
[2021-08-01] MEDS: CALCIUM/VITAMIN D 500 MG TAB PO SCH (08:25)
[2021-08-01] MEDS: MULTIVITAMINS/MINERALS THERAP 1 TAB PO SCH (08:25)
[2021-08-01] MEDS: CelecoXIB (CeleBREX) 100 MG CAP PO SCH (08:26)
[2021-08-01] MEDS: ENOXAPARIN 40MG/0.4ML SYRINGE (J1650 PER 10MG) SC SCH (08:26)
[2021-08-01] MEDS: DULoxetine 30MG CAPSULE (CYMBALTA) PO SCH (08:26)
[2021-08-01] MEDS: PREGABALIN 100 MG CAP (LYRICA) PO SCH (08:26)
[2021-08-01] MEDS: PANTOPRAZOLE 40MG TAB (PROTONIX) PO SCH ×2 (08:26→20:19)
[2021-08-01] MEDS: HumaLOG INSULIN (NovoLOG) PER UNIT SC SCH ×4 (08:27→21:00)
[2021-08-01] MEDS: SUCRALFATE 1 GM TAB PO SCH ×4 (08:27→20:19)
[2021-08-01] MEDS ORDERED: POLYVINYL ALCOHOL OPHTH SOLN 15 ML(LIQUITEARS) OU PRN (12:30)
[2021-08-01] MEDS: oxyBUTYnin *DITROPAN XL* 5 MG TABCR PO SCH (20:17)
[2021-08-01] MEDS: PREGABALIN 75 MG CAP(LYRICA) PO SCH (20:18)
[2021-08-01] MEDS: METOPROLOL SUCC *XL* 25MG TAB (TopROL *XL*) PO SCH (20:18)
[2021-08-01] MEDS: **NOTE PATIENT COMMENT** MISC XX SCH (21:00)
[2021-08-01] MEDS: QUEtiapine FUMARATE 50MG TAB PO SCH (23:04)
[2021-08-02] VITALS (12 sets, daily range): BP systolic 132–153; BP diastolic 69–80; O2SAT 90–95
[2021-08-02 04:52] LABS: HEMATOCRIT 37.4 % (36.0-47.0); HEMOGLOBIN 12.4 g/dl (12.0-15.5); MEAN CORPUSCULAR HEMOGLOBIN 32.6 pg (27.0-33.0); MEAN CORPUSCULAR HGB CONC 33.2 g/dl (32.0-36.5); MEAN CORPUSCULAR VOLUME 98.4 fl (80.0-96.0); PLATELET COUNT, AUTOMATED 193 10^3/uL (150-450); WHITE BLOOD COUNT 6.5 10^3/uL (4.0-10.0)
[2021-08-02] MEDS: oxyCODONE 5MG TAB PO PRN ×4 (05:07→20:33)
[2021-08-02] MEDS: PIPERACILLIN/TAZOBACTAM SOD 4.5 GM in D5W MINI-BAG PLUS 100 ML IV SCH (05:08)
[2021-08-02 05:13] LABS: ALBUMIN 2.5 GM/DL (3.2-5.2); ALT/SGPT 126 U/L (12-78); BILIRUBIN,TOTAL 1.1 MG/DL (0.2-1.0); BLOOD UREA NITROGEN 7 MG/DL (7-18); CARBON DIOXIDE LEVEL 29 MEQ/L (21-32); CHLORIDE LEVEL 111 MEQ/L (98-107); CREATININE FOR GFR 0.52 MG/DL (0.55-1.30); GLOMERULAR FILTRATION RATE > 60.0 (>51); GLUCOSE, FASTING 126 MG/DL (70-100); MAGNESIUM LEVEL 2.2 MG/DL (1.8-2.4); POTASSIUM SERUM 3.7 MEQ/L (3.5-5.1); SODIUM LEVEL 146 MEQ/L (136-145); TOTAL PROTEIN 5.8 GM/DL (6.4-8.2)
[2021-08-02] MEDS ORDERED: LevoFLOXacin 750 MG TABLET PO ONE (07:00)
[2021-08-02] MEDS: DULoxetine 30MG CAPSULE (CYMBALTA) PO SCH (08:00)
[2021-08-02] MEDS: MULTIVITAMINS/MINERALS THERAP 1 TAB PO SCH (08:00)
[2021-08-02] MEDS: CALCIUM/VITAMIN D 500 MG TAB PO SCH (08:00)
[2021-08-02] MEDS: HumaLOG INSULIN (NovoLOG) PER UNIT SC SCH ×4 (08:01→20:31)
[2021-08-02] MEDS: CelecoXIB (CeleBREX) 100 MG CAP PO SCH (08:01)
[2021-08-02] MEDS: SUCRALFATE 1 GM TAB PO SCH ×4 (08:02→20:32)
[2021-08-02] MEDS: PANTOPRAZOLE 40MG TAB (PROTONIX) PO SCH ×2 (08:02→20:32)
[2021-08-02] MEDS: PREGABALIN 100 MG CAP (LYRICA) PO SCH (08:02)
[2021-08-02] MEDS: BACLOFEN 10 MG TAB PO SCH ×2 (08:03→23:32)
[2021-08-02] MEDS: ENOXAPARIN 40MG/0.4ML SYRINGE (J1650 PER 10MG) SC SCH (08:03)
[2021-08-02] MEDS: lisinopriL 5 MG TAB PO SCH ×2 (08:03→08:10)
[2021-08-02] MEDS: oxyBUTYnin *DITROPAN XL* 5 MG TABCR PO SCH (20:31)
[2021-08-02] MEDS: METOPROLOL SUCC *XL* 25MG TAB (TopROL *XL*) PO SCH (20:32)
[2021-08-02] MEDS: PREGABALIN 75 MG CAP(LYRICA) PO SCH (20:32)
[2021-08-02] MEDS: **NOTE PATIENT COMMENT** MISC XX SCH (20:34)
[2021-08-02] MEDS: QUEtiapine FUMARATE 50MG TAB PO SCH (23:32)
[2021-08-03] VITALS (11 sets, daily range): BP systolic 130–132; BP diastolic 58–59; O2SAT 90–96
[2021-08-03] MEDS: oxyCODONE 5MG TAB PO PRN ×2 (03:14→08:38)
[2021-08-03] MEDS ORDERED: LevoFLOXacin 750 MG TABLET PO SCH (06:00)
[2021-08-03 06:17] LABS: HEMATOCRIT 37.6 % (36.0-47.0); HEMOGLOBIN 12.4 g/dl (12.0-15.5); MEAN CORPUSCULAR VOLUME 97.2 fl (80.0-96.0); PLATELET COUNT, AUTOMATED 222 10^3/uL (150-450); RED BLOOD COUNT 3.87 10^6/uL (4.00-5.40); WHITE BLOOD COUNT 5.7 10^3/uL (4.0-10.0)
[2021-08-03 06:42] LABS: ALBUMIN 2.5 GM/DL (3.2-5.2); ALT/SGPT 87 U/L (12-78); BILIRUBIN,TOTAL 1.4 MG/DL (0.2-1.0); BLOOD UREA NITROGEN 9 MG/DL (7-18); CALCIUM LEVEL 8.6 MG/DL (8.5-10.1); CARBON DIOXIDE LEVEL 30 MEQ/L (21-32); CHLORIDE LEVEL 107 MEQ/L (98-107); CREATININE FOR GFR 0.56 MG/DL (0.55-1.30); GLOMERULAR FILTRATION RATE > 60.0 (>51); GLUCOSE, FASTING 131 MG/DL (70-100); MAGNESIUM LEVEL 2.2 MG/DL (1.8-2.4); POTASSIUM SERUM 3.6 MEQ/L (3.5-5.1); SODIUM LEVEL 141 MEQ/L (136-145); TOTAL PROTEIN 5.9 GM/DL (6.4-8.2)
[2021-08-03] MEDS: HumaLOG INSULIN (NovoLOG) PER UNIT SC SCH (07:30)
[2021-08-03] MEDS: DULoxetine 30MG CAPSULE (CYMBALTA) PO SCH (08:31)
[2021-08-03] MEDS: MULTIVITAMINS/MINERALS THERAP 1 TAB PO SCH (08:31)
[2021-08-03] MEDS: BACLOFEN 10 MG TAB PO SCH (08:31)
[2021-08-03] MEDS: CelecoXIB (CeleBREX) 100 MG CAP PO SCH (08:31)
[2021-08-03] MEDS: CALCIUM/VITAMIN D 500 MG TAB PO SCH (08:32)
[2021-08-03] MEDS: lisinopriL 5 MG TAB PO SCH (08:32)
[2021-08-03] MEDS: ENOXAPARIN 40MG/0.4ML SYRINGE (J1650 PER 10MG) SC SCH (08:33)
[2021-08-03] MEDS: PANTOPRAZOLE 40MG TAB (PROTONIX) PO SCH (08:36)
[2021-08-03] MEDS: PREGABALIN 100 MG CAP (LYRICA) PO SCH (08:36)
[2021-08-03] MEDS: SUCRALFATE 1 GM TAB PO SCH (08:36)
[2021-08-03] MEDS ORDERED: LEVO750T13 PO (09:36)
== END 2021-08-03 10:55 | disposition home or self-care (01) | DRG 871 ==
LOC: M ED 10:36 → M PCU 16:16 → ENRESERV 17:09 → M 4MAIN 08-01 11:53 → M PCU 08-01 11:54
PROVIDERS: ADMIT Family Medicine; ATTEND Family Medicine
DX: A41.9 Sepsis, unspecified organism (principal); J18.9 Pneumonia, unspecified organism; D84.9 Immunodeficiency, unspecified; K21.9 Gastro-esophageal reflux disease without esophagitis; E11.9 Type 2 diabetes mellitus without complications; M32.9 Systemic lupus erythematosus, unspecified; G47.33 Obstructive sleep apnea (adult) (pediatric); Z90.49 Acquired absence of other specified parts of digestive tract; R74.01 Elevation of levels of liver transaminase levels; I10 Essential (primary) hypertension; Z20.822 Contact with and (suspected) exposure to COVID-19; Z79.84 Long term (current) use of oral hypoglycemic drugs; Z79.899 Other long term (current) drug therapy; Z88.8 Allergy status to other drugs, medicaments and biological substances; Z91.018 Allergy to other foods; Z79.4 Long term (current) use of insulin; Z79.891 Long term (current) use of opiate analgesic; G89.29 Other chronic pain

== ENCOUNTER → 2021-09-08 | Outpatient (REF) | payer OTHER ==
[~2021-09-08] MED LIST changes: +CELE1CAP7 PO; +DICY10CA13; +LEVO750T13 PO; +NOVOINJ3 SC; +VITMTA PO
== END ==
LOC: M LAB REF 14:14
PROVIDERS: ATTEND Internal Medicine Gastroenterology
DX: K58.0 Irritable bowel syndrome with diarrhea (principal)

== ENCOUNTER 2021-09-27 12:35 | Day surgery (SDC) | payer OTHER ==
[~2021-09-27] VITALS: Ht 162.6 cm; Wt 106.6 kg
[~2021-09-27 12:35] MED LIST changes: +DRON2.5C11 PO; +NS 1,000 ML IV ONE
[2021-09-27] MEDS ORDERED: propofoL 200 MG/20 ML VIAL As Ordered ONE (15:06)
[2021-09-27] MEDS ORDERED: LIDOCAINE 2% 100MG/5ML SDV (FOR ANES.) As Ordered ONE (15:06)
[2021-09-27 15:25] VITALS: BP 111/63
== END 2021-09-27 15:35 | disposition home or self-care (01) ==
LOC: M OPP 12:35
PROVIDERS: ATTEND Internal Medicine Gastroenterology
DX: K21.9 Gastro-esophageal reflux disease without esophagitis (principal); K76.0 Fatty (change of) liver, not elsewhere classified; Z98.84 Bariatric surgery status; Z79.02 Long term (current) use of antithrombotics/antiplatelets; Z79.4 Long term (current) use of insulin; Z79.51 Long term (current) use of inhaled steroids; Z79.891 Long term (current) use of opiate analgesic; Z79.899 Other long term (current) drug therapy; Z88.8 Allergy status to other drugs, medicaments and biological substances; Z91.018 Allergy to other foods

== ENCOUNTER → 2021-10-04 | Outpatient (CLI) | payer OTHER ==
[~2021-10-04] MED LIST changes: -NS 1,000 ML IV ONE
[2021-10-04 15:38] LABS: IMMUNOGLOBULIN M 41.1 MG/DL (40-230)
== END ==
LOC: M RAD 13:38
PROVIDERS: ATTEND Internal Medicine Pulmonary Disease
DX: J15.0 Pneumonia due to Klebsiella pneumoniae (principal)

== ENCOUNTER 2021-10-11 13:25 | Observation (INO) | payer OTHER ==
[~2021-10-11] VITALS: Ht 162.6 cm; Wt 107.5 kg
[2021-10-11] MEDS ORDERED: NS 1,000 ML IV SCH (15:05)
[2021-10-11 17:13] LABS: BASO % 0.2 % (0.0-1.0); EOS % 0.1 % (0.0-3.0); HEMATOCRIT 44.4 % (36.0-47.0); HEMOGLOBIN 14.6 g/dl (12.0-15.5); LYMPH # 1.9 10^3/uL (1.5-5.0); LYMPH % 10.6 % (24.0-44.0); MEAN CORPUSCULAR HEMOGLOBIN 31.9 pg (27.0-33.0); MEAN CORPUSCULAR HGB CONC 32.9 g/dl (32.0-36.5); MEAN CORPUSCULAR VOLUME 96.9 fl (80.0-96.0); MONO # 1.1 10^3/uL (0.0-0.8); MONO % 6.4 % (2.0-8.0); NEUTROPHILS # 14.5 10^3/uL (1.5-8.5); NEUTROPHILS % 82.1 % (36.0-66.0); PLATELET COUNT, AUTOMATED 242 10^3/uL (150-450); RED BLOOD COUNT 4.58 10^6/uL (4.00-5.40); WHITE BLOOD COUNT 17.7 10^3/uL (4.0-10.0)
[2021-10-11 17:22] LABS: ALBUMIN 3.1 GM/DL (3.2-5.2); ALT/SGPT 33 U/L (12-78); BILIRUBIN,DIRECT 0.3 MG/DL (0.0-0.2); BLOOD UREA NITROGEN 11 MG/DL (7-18); CALCIUM LEVEL 8.1 MG/DL (8.5-10.1); CARBON DIOXIDE LEVEL 26 MEQ/L (21-32); CHLORIDE LEVEL 104 MEQ/L (98-107); CREATININE FOR GFR 0.82 MG/DL (0.55-1.30); GLOMERULAR FILTRATION RATE > 60.0 (>51); GLUCOSE, FASTING 151 MG/DL (70-100); POTASSIUM SERUM 5.2 MEQ/L (3.5-5.1); SODIUM LEVEL 137 MEQ/L (136-145); TOTAL PROTEIN 6.4 GM/DL (6.4-8.2)
[2021-10-11] MEDS ORDERED: AZITHROMYCIN INJ 500 MG, VIAL MATE ADAPTER 1 EACH in NS 250 ML IV ONE (17:35)
[2021-10-11] MEDS ORDERED: cefTRIAXone SOD 2 GM in D5W MINI-BAG PLUS 50 ML IV ONE (17:35)
[2021-10-11] MEDS ORDERED: GLUCAGON INJ 1MG VIAL SC PRN (20:05)
[2021-10-11] MEDS ORDERED: MAALOX 30 ML SUSP *UDC PO PRN (20:05)
[2021-10-11] MEDS ORDERED: oxyCODONE 5MG TAB PO ONE (20:05)
[2021-10-11] MEDS ORDERED: ACETAMINOPHEN TAB 650MG DOSE (2X325MG) PO PRN (20:05)
[2021-10-11] MEDS ORDERED: GLUCOSE 4GM CHEW TABLET PO PRN (20:05)
[2021-10-11] MEDS ORDERED: DEXTROSE 50% 50 ML SYRINGE IV PRN (20:05)
[2021-10-11] MEDS: NS 1,000 ML IV SCH (20:20)
[2021-10-11] MEDS ORDERED: HOME MED LIST COMPLETE! XX SCH (21:00)
[2021-10-11] MEDS: INSULIN LISPRO (NovoLOG) PER UNIT SC SCH (21:00)
[2021-10-11] MEDS ORDERED: busPIRone 5 MG TAB PO PRN (21:25)
[2021-10-11] MEDS ORDERED: ALBUTEROL 90 MCG/ACT 8GM HFA INHALER INH PRN (21:25)
[2021-10-11] MEDS ORDERED: QUEtiapine FUMARATE 25 MG TAB PO PRN (21:25)
[2021-10-11 21:46] LABS: INR 0.97; PROTHROMBIN TIME 13.3 SECONDS (12.7-14.5)
[2021-10-11] MEDS: PREGABALIN 75 MG CAP(LYRICA) PO SCH (21:46)
[2021-10-11] MEDS: BACLOFEN 10 MG TAB PO SCH (21:46)
[2021-10-11] MEDS: SUCRALFATE 1 GM TAB PO SCH (21:46)
[2021-10-11 21:47] LABS: PARTIAL THROMBOPLASTIN TIME 27.5 SECONDS (25.9-37.0)
[2021-10-11] MEDS: QUEtiapine FUMARATE 50MG TAB PO SCH (21:47)
[2021-10-11] MEDS: METOPROLOL SUCC *XL* 25MG TAB (TopROL *XL*) PO SCH (21:49)
[2021-10-11] MEDS: PANTOPRAZOLE 40MG VIAL IV SCH (22:27)
[2021-10-11] MEDS: oxyBUTYnin *DITROPAN XL* 5 MG TABCR PO SCH (22:56)
[2021-10-12] MEDS: PIPERACILLIN/TAZOBACTAM SOD 3.375 GM in D5W MINI-BAG PLUS 50 ML IV SCH ×4 (00:16→17:28)
[2021-10-12] MEDS: NS 1,000 ML IV SCH (05:01)
[2021-10-12] MEDS: oxyCODONE 5MG TAB PO PRN ×2 (05:07→17:29)
[2021-10-12 06:12] LABS: HEMATOCRIT 37.4 % (36.0-47.0); MEAN CORPUSCULAR HEMOGLOBIN 32.8 pg (27.0-33.0); MEAN CORPUSCULAR HGB CONC 33.2 g/dl (32.0-36.5); MEAN CORPUSCULAR VOLUME 98.9 fl (80.0-96.0); PLATELET COUNT, AUTOMATED 192 10^3/uL (150-450); RED BLOOD COUNT 3.78 10^6/uL (4.00-5.40); WHITE BLOOD COUNT 9.3 10^3/uL (4.0-10.0)
[2021-10-12 06:17] LABS: HEMOGLOBIN 12.4 g/dl (12.0-15.5)
[2021-10-12 06:23] LABS: ALBUMIN 2.8 GM/DL (3.2-5.2); ALT/SGPT 24 U/L (12-78); BILIRUBIN,TOTAL 1.7 MG/DL (0.2-1.0); BLOOD UREA NITROGEN 7 MG/DL (7-18); CALCIUM LEVEL 8.6 MG/DL (8.5-10.1); CARBON DIOXIDE LEVEL 26 MEQ/L (21-32); CHLORIDE LEVEL 112 MEQ/L (98-107); CREATININE FOR GFR 0.58 MG/DL (0.55-1.30); GLOMERULAR FILTRATION RATE > 60.0 (>51); GLUCOSE, FASTING 128 MG/DL (70-100); MAGNESIUM LEVEL 2.1 MG/DL (1.8-2.4); POTASSIUM SERUM 3.8 MEQ/L (3.5-5.1); SODIUM LEVEL 145 MEQ/L (136-145); TOTAL PROTEIN 5.3 GM/DL (6.4-8.2)
[2021-10-12] MEDS ORDERED: DULoxetine 30MG CAPSULE (CYMBALTA) PO SCH (09:00)
[2021-10-12] MEDS: DULoxetine 30MG CAPSULE (CYMBALTA) PO SCH (09:57)
[2021-10-12] MEDS: SUCRALFATE 1 GM TAB PO SCH ×4 (09:58→20:33)
[2021-10-12] MEDS: BACLOFEN 10 MG TAB PO SCH ×2 (09:59→20:33)
[2021-10-12] MEDS: PREGABALIN 100 MG CAP (LYRICA) PO SCH (09:59)
[2021-10-12] MEDS: lisinopriL 5 MG TAB PO SCH (10:00)
[2021-10-12] MEDS: PANTOPRAZOLE 40MG VIAL IV SCH ×2 (10:00→20:32)
[2021-10-12] MEDS: ENOXAPARIN 40MG/0.4ML SYRINGE (J1650 PER 10MG) SC SCH (10:02)
[2021-10-12] MEDS: LEVEMIR (INSULIN DETEMIR) 1 UNITS/0.01ML SC SCH (10:03)
[2021-10-12] MEDS: INSULIN LISPRO (NovoLOG) PER UNIT SC SCH ×4 (10:04→20:34)
[2021-10-12 13:05] VITALS: BP 118/67
[2021-10-12] MEDS ORDERED: DRONABINOL 2.5MG CAP (MARINOL) PO SCH ×2 (18:00)
[2021-10-12 20:29] VITALS: BP 118/67
[2021-10-12] MEDS: METOPROLOL SUCC *XL* 25MG TAB (TopROL *XL*) PO SCH (20:33)
[2021-10-12] MEDS: PREGABALIN 75 MG CAP(LYRICA) PO SCH ×2 (20:33→20:45)
[2021-10-12] MEDS: QUEtiapine FUMARATE 50MG TAB PO SCH (20:33)
[2021-10-12] MEDS: oxyBUTYnin *DITROPAN XL* 5 MG TABCR PO SCH (21:00)
[2021-10-13] MEDS: oxyCODONE 5MG TAB PO PRN ×2 (01:30→10:17)
[2021-10-13 05:23] VITALS: BP 116/67
[2021-10-13] MEDS: PIPERACILLIN/TAZOBACTAM SOD 3.375 GM in D5W MINI-BAG PLUS 50 ML IV SCH ×3 (06:09)
[2021-10-13 06:15] LABS: HEMATOCRIT 38.6 % (36.0-47.0); HEMOGLOBIN 12.7 g/dl (12.0-15.5); MEAN CORPUSCULAR HEMOGLOBIN 32.1 pg (27.0-33.0); MEAN CORPUSCULAR HGB CONC 32.9 g/dl (32.0-36.5); MEAN CORPUSCULAR VOLUME 97.5 fl (80.0-96.0); PLATELET COUNT, AUTOMATED 193 10^3/uL (150-450); RED BLOOD COUNT 3.96 10^6/uL (4.00-5.40); WHITE BLOOD COUNT 6.8 10^3/uL (4.0-10.0)
[2021-10-13 06:38] LABS: ALBUMIN 2.7 GM/DL (3.2-5.2); ALT/SGPT 21 U/L (12-78); BILIRUBIN,TOTAL 1.3 MG/DL (0.2-1.0); BLOOD UREA NITROGEN 7 MG/DL (7-18); CALCIUM LEVEL 8.8 MG/DL (8.5-10.1); CARBON DIOXIDE LEVEL 28 MEQ/L (21-32); CHLORIDE LEVEL 110 MEQ/L (98-107); CREATININE FOR GFR 0.64 MG/DL (0.55-1.30); GLOMERULAR FILTRATION RATE > 60.0 (>51); GLUCOSE, FASTING 129 MG/DL (70-100); PHOSPHORUS LEVEL 3.8 MG/DL (2.5-4.9); POTASSIUM SERUM 3.9 MEQ/L (3.5-5.1); SODIUM LEVEL 144 MEQ/L (136-145); TOTAL PROTEIN 5.5 GM/DL (6.4-8.2)
[2021-10-13] MEDS ORDERED: DOXY-350 PO (08:32)
[2021-10-13] MEDS ORDERED: CEFD300C PO (08:32)
[2021-10-13] MEDS: INSULIN LISPRO (NovoLOG) PER UNIT SC SCH (09:44)
[2021-10-13] MEDS: DULoxetine 30MG CAPSULE (CYMBALTA) PO SCH (09:44)
[2021-10-13] MEDS: PANTOPRAZOLE 40MG VIAL IV SCH (09:44)
[2021-10-13] MEDS: LEVEMIR (INSULIN DETEMIR) 1 UNITS/0.01ML SC SCH (09:44)
[2021-10-13] MEDS: SUCRALFATE 1 GM TAB PO SCH (09:45)
[2021-10-13 09:46] VITALS: BP 123/69
[2021-10-13] MEDS: ENOXAPARIN 40MG/0.4ML SYRINGE (J1650 PER 10MG) SC SCH (09:46)
[2021-10-13] MEDS: PREGABALIN 100 MG CAP (LYRICA) PO SCH (09:46)
[2021-10-13] MEDS: lisinopriL 5 MG TAB PO SCH (09:46)
[2021-10-13] MEDS: BACLOFEN 10 MG TAB PO SCH (09:46)
[2021-10-16 16:08] LABS: BODY FLUID CULTURE Not indicated. (.); LEGIONELLA ANTIGEN URINE Negative (Negative); ORGANISM ID Not indicated. (.); SPECIMEN SOURCE Urine (.); URINE STREP PNEUMONIAE ANTIGEN Negative (Negative)
== END 2021-10-13 10:30 | disposition home or self-care (01) ==
LOC: M ED 13:25 → M ED INP 20:03 → ENRESERV 10-12 14:20 → M MSPAV 10-12 15:03
PROVIDERS: ADMIT Family Medicine; ATTEND Internal Medicine
DX: J18.9 Pneumonia, unspecified organism (principal); K21.9 Gastro-esophageal reflux disease without esophagitis; E11.9 Type 2 diabetes mellitus without complications; I10 Essential (primary) hypertension; M32.9 Systemic lupus erythematosus, unspecified; G89.4 Chronic pain syndrome; M79.7 Fibromyalgia; F41.9 Anxiety disorder, unspecified; F32.A Depression, unspecified; N32.81 Overactive bladder; G47.33 Obstructive sleep apnea (adult) (pediatric); E88.81 Metabolic syndrome and other insulin resistance; I48.91 Unspecified atrial fibrillation; E78.5 Hyperlipidemia, unspecified; Z83.2 Family history of diseases of the blood and blood-forming organs and certain disorders involving the immune mechanism; Z79.899 Other long term (current) drug therapy; Z79.84 Long term (current) use of oral hypoglycemic drugs; Z79.4 Long term (current) use of insulin; Z91.018 Allergy to other foods; Z88.8 Allergy status to other drugs, medicaments and biological substances
CPT/HCPCS: 36415; 71046; 80048; 80053; 80076; 83605; 83735; 84100; 84484; 85025; 85027; 85610; 85730; 87040; 87449; 87486; 87581; 87633; 87798; 87899; 93005; 96361; 96365; 96366; 96367; 96372; 96375; 96376; 99285; C9113; J0456; J0696; J1650; J1815; J2543

== ENCOUNTER 2021-11-11 10:05 | Emergency (ER) | payer OTHER ==
[~2021-11-11] VITALS: Ht 162.6 cm; Wt 109.3 kg
[~2021-11-11 10:05] MED LIST changes: +CEFD300C PO
[2021-11-11 11:49] LABS: RSV AMPLIFICATION NEGATIVE (NEGATIVE)
[2021-11-11 12:56] LABS: BASO % 0.6 % (0.0-1.0); EOS # 0.1 10^3/uL (0.0-0.5); EOS % 1.5 % (0.0-3.0); HEMOGLOBIN 14.2 g/dl (12.0-15.5); LYMPH % 21.4 % (24.0-44.0); MEAN CORPUSCULAR HEMOGLOBIN 32.8 pg (27.0-33.0); MEAN CORPUSCULAR VOLUME 99.3 fl (80.0-96.0); MONO # 0.7 10^3/uL (0.0-0.8); MONO % 13.8 % (2.0-8.0); NEUTROPHILS # 2.9 10^3/uL (1.5-8.5); NEUTROPHILS % 62.5 % (36.0-66.0); PLATELET COUNT, AUTOMATED 169 10^3/uL (150-450); RED BLOOD COUNT 4.33 10^6/uL (4.00-5.40); WHITE BLOOD COUNT 4.7 10^3/uL (4.0-10.0)
[2021-11-11] MEDS ORDERED: ACETAMINOPHEN TAB 650MG DOSE (2X325MG) PO PRN (13:00)
[2021-11-11] MEDS ORDERED: EPINEPHrine INJ 1 MG/ML 1ML AMP IM PRN (13:00)
[2021-11-11] MEDS ORDERED: ACETAMINOPHEN TAB 650MG DOSE (2X325MG) PO ONE (13:00)
[2021-11-11] MEDS ORDERED: methylPREDNISolone 125MG 2ML VIAL IV ONE (13:00)
[2021-11-11] MEDS ORDERED: methylPREDNISolone 125MG 2ML VIAL IV PRN (13:00)
[2021-11-11] MEDS ORDERED: diphenhydrAMINE 50MG/ML VIAL (J1200) IV ONE (13:00)
[2021-11-11] MEDS ORDERED: NS 1,000 ML IV SCH (13:00)
[2021-11-11] MEDS ORDERED: ALBUTEROL 90 MCG/ACT 8GM HFA INHALER INH PRN (13:00)
[2021-11-11] MEDS ORDERED: diphenhydrAMINE 50MG/ML VIAL (J1200) IV PRN (13:00)
[2021-11-11] MEDS ORDERED: NIRM1TAB PO (13:02)
[2021-11-11 13:29] LABS: ALBUMIN 3.4 GM/DL (3.2-5.2); ALT/SGPT 232 U/L (12-78); BILIRUBIN,TOTAL 1.7 MG/DL (0.2-1.0); BLOOD UREA NITROGEN 9 MG/DL (7-18); C REACTIVE PROTEIN QUANTITATIV 0.65 MG/DL (0.00-0.30); CALCIUM LEVEL 8.9 MG/DL (8.5-10.1); CARBON DIOXIDE LEVEL 25 MEQ/L (21-32); CHLORIDE LEVEL 107 MEQ/L (98-107); CREATININE FOR GFR 0.85 MG/DL (0.55-1.30); FERRITIN 86 NG/ML (8-252); GLOMERULAR FILTRATION RATE > 60.0 (>51); GLUCOSE, FASTING 143 MG/DL (70-100); LDH LACTATE DEHYDROGENASE 212 U/L (84-246); POTASSIUM SERUM 3.6 MEQ/L (3.5-5.1); SODIUM LEVEL 140 MEQ/L (136-145); TOTAL PROTEIN 6.7 GM/DL (6.4-8.2)
[2021-11-11] MEDS ORDERED: BEBTELOVIMAB 175MG 2ML VIAL (EUA) IV ONE (14:00)
[2021-11-11 14:20] VITALS: BP 136/79
[2021-11-11 15:30] VITALS: BP 128/73
[2021-11-11] MEDS ORDERED: NIRMATRELVIR/RITONAVIR CO-PACK (EMERGENCY USE AUTH) PO SCH (21:00)
== END 2021-11-11 15:59 | disposition home or self-care (01) ==
LOC: M ED 10:05
DX: U07.1 COVID-19 (principal); I25.2 Old myocardial infarction; R94.31 Abnormal electrocardiogram [ECG] [EKG]; E11.9 Type 2 diabetes mellitus without complications; I10 Essential (primary) hypertension; K21.9 Gastro-esophageal reflux disease without esophagitis; E28.2 Polycystic ovarian syndrome; G47.33 Obstructive sleep apnea (adult) (pediatric); M32.9 Systemic lupus erythematosus, unspecified; M79.7 Fibromyalgia; G89.29 Other chronic pain; Z79.4 Long term (current) use of insulin; Z79.84 Long term (current) use of oral hypoglycemic drugs; Z79.899 Other long term (current) drug therapy; Z91.018 Allergy to other foods; Z88.8 Allergy status to other drugs, medicaments and biological substances
CPT/HCPCS: 71045; 80053; 82728; 83605; 83615; 84145; 85025; 85384; 86140; 87040; 87631; 93005; 96374; 96375; 99284; J1200; J2930

== ENCOUNTER 2021-11-19 12:07 | Inpatient (IN) | payer OTHER ==
[~2021-11-19] VITALS: Ht 162.6 cm; Wt 105.9 kg
[~2021-11-19 12:07] MED LIST changes: +LEVO1TAB40 PO; -LEVO750T13 PO; +NIRM1TAB PO
[2021-11-19] MEDS ORDERED: dexameTHASONE 20MG/5ML VIAL (J1100 PER 1MG) IV ONE (14:40)
[2021-11-19 16:17] LABS: HEMATOCRIT 44.1 % (36.0-47.0); HEMOGLOBIN 14.8 g/dl (12.0-15.5); MEAN CORPUSCULAR HGB CONC 33.6 g/dl (32.0-36.5); MEAN CORPUSCULAR VOLUME 95.5 fl (80.0-96.0); PLATELET COUNT, AUTOMATED 292 10^3/uL (150-450); RED BLOOD COUNT 4.62 10^6/uL (4.00-5.40); WHITE BLOOD COUNT 13.9 10^3/uL (4.0-10.0)
[2021-11-19 16:38] LABS: BLOOD UREA NITROGEN 14 MG/DL (7-18); CARBON DIOXIDE LEVEL 25 MEQ/L (21-32); CHLORIDE LEVEL 108 MEQ/L (98-107); CREATININE FOR GFR 0.73 MG/DL (0.55-1.30); GLOMERULAR FILTRATION RATE > 60.0 (>51); GLUCOSE, FASTING 133 MG/DL (70-100); POTASSIUM SERUM 3.2 MEQ/L (3.5-5.1); SODIUM LEVEL 140 MEQ/L (136-145)
[2021-11-19] MEDS ORDERED: ISOVUE-370 76% 100ML VIAL As Ordered ONE (17:09)
[2021-11-19 17:23] LABS: ATYPICAL LYMPH 2 % (0-5); LYMPHOCYTES 12 % (16-44); MONOCYTES 5 % (0-5); NEUTROPHILS 72 % (28-66); PLATELET ESTIMATE NORMAL (NORMAL)
[2021-11-19] MEDS ORDERED: POTASSIUM CHLORIDE 10MEQ SR TABLET PO ONE (18:05)
[2021-11-19] MEDS ORDERED: OXYB5TAB10 PO (18:20)
[2021-11-19] MEDS ORDERED: CETI-24 PO (18:26)
[2021-11-19] MEDS ORDERED: ROSU10TA6 PO (18:26)
[2021-11-19] MEDS ORDERED: ALIG4CAP PO (18:26)
[2021-11-19] MEDS ORDERED: POLY1.4S OU (18:26)
[2021-11-19] MEDS ORDERED: FLON1SPR (18:26)
[2021-11-19] MEDS ORDERED: TOLN1CRE23 TOP (18:26)
[2021-11-19] MEDS ORDERED: HOME MED LIST COMPLETE! XX SCH (18:30)
[2021-11-19] MEDS ORDERED: POLYVINYL ALCOHOL OPHTH SOLN 15 ML(LIQUITEARS) OU PRN (19:00)
[2021-11-19] MEDS ORDERED: LIDOCAINE 5% (LIDODERM) PATCH TOP PRN (19:00)
[2021-11-19] MEDS ORDERED: GLUCAGON INJ 1MG VIAL SC PRN (19:00)
[2021-11-19] MEDS ORDERED: GLUCOSE 4GM CHEW TABLET PO PRN (19:00)
[2021-11-19] MEDS ORDERED: DEXTROSE 50% 50 ML SYRINGE IV PRN (19:00)
[2021-11-19] MEDS ORDERED: ALBUTEROL 90 MCG/ACT 8GM HFA INHALER INH PRN (19:00)
[2021-11-19 19:46] LABS: RSV AMPLIFICATION NEGATIVE (NEGATIVE)
[2021-11-19] MEDS ORDERED: guaiFENesin DM LIQ 10ML UD PO PRN (19:55)
[2021-11-19 20:25] LABS: INR 0.91; PROTHROMBIN TIME 12.7 SECONDS (12.7-14.5)
[2021-11-19 20:28] LABS: D-DIMER QUANT 583.56 ng/ml (<500)
[2021-11-19 20:57] LABS: ALBUMIN 3.2 GM/DL (3.2-5.2); BILIRUBIN,DIRECT 0.5 MG/DL (0.0-0.2); BILIRUBIN,TOTAL 2.1 MG/DL (0.2-1.0); C REACTIVE PROTEIN QUANTITATIV 5.89 MG/DL (0.00-0.30); TOTAL PROTEIN 6.6 GM/DL (6.4-8.2)
[2021-11-19] MEDS ORDERED: oxyBUTYnin 5 MG TAB PO SCH (21:00)
[2021-11-19] MEDS: **NOTE PATIENT COMMENT** MISC XX SCH (21:00)
[2021-11-19] MEDS: INSULIN LISPRO (NovoLOG) PER UNIT SC SCH (21:00)
[2021-11-19] MEDS: SUCRALFATE 1 GM TAB PO SCH (21:07)
[2021-11-19] MEDS: BACLOFEN 10 MG TAB PO SCH (21:08)
[2021-11-19] MEDS: PREGABALIN 75 MG CAP(LYRICA) PO SCH (21:09)
[2021-11-19] MEDS: QUEtiapine FUMARATE 50MG TAB PO SCH (21:09)
[2021-11-19] MEDS: guaiFENesin ER 600 MG TAB PO SCH (21:09)
[2021-11-19] MEDS: PANTOPRAZOLE 40MG TAB (PROTONIX) PO SCH (21:09)
[2021-11-19] MEDS: ENOXAPARIN 40MG/0.4ML SYRINGE (J1650 PER 10MG) SC SCH (21:10)
[2021-11-19] MEDS: LevoFLOXacin IV 750 MG in IV 1 EA IV SCH (21:10)
[2021-11-19] MEDS: METOPROLOL SUCC *XL* 25MG TAB (TopROL *XL*) PO SCH (21:10)
[2021-11-19] MEDS: FLUTICASONE PROP 0.05% NASAL SPRAY 16 GM (FLONASE) SCH (22:14)
[2021-11-19] MEDS ORDERED: REMDESIVIR 200 MG in NS 250 ML IV ONE (23:00)
[2021-11-19 23:15] VITALS: BP 114/74
[2021-11-19] MEDS: oxyCODONE 5MG TAB PO PRN (23:47)
[2021-11-19] MEDS ORDERED: RAMELTEON 8 MG TAB (ROZEREM) PO PRN (23:55)
[2021-11-20 06:00] VITALS: BP 120/58
[2021-11-20 06:35] LABS: BASO % 0.2 % (0.0-1.0); EOS % 0.1 % (0.0-3.0); HEMATOCRIT 38.9 % (36.0-47.0); LYMPH # 2.5 10^3/uL (1.5-5.0); LYMPH % 18.3 % (24.0-44.0); MEAN CORPUSCULAR HEMOGLOBIN 31.8 pg (27.0-33.0); MEAN CORPUSCULAR HGB CONC 32.9 g/dl (32.0-36.5); MEAN CORPUSCULAR VOLUME 96.8 fl (80.0-96.0); MONO % 7.3 % (2.0-8.0); NEUTROPHILS # 10.1 10^3/uL (1.5-8.5); NEUTROPHILS % 73.4 % (36.0-66.0); PLATELET COUNT, AUTOMATED 262 10^3/uL (150-450); RED BLOOD COUNT 4.02 10^6/uL (4.00-5.40); WHITE BLOOD COUNT 13.7 10^3/uL (4.0-10.0)
[2021-11-20 06:41] LABS: HEMOGLOBIN 12.8 g/dl (12.0-15.5)
[2021-11-20 07:21] LABS: ALBUMIN 2.6 GM/DL (3.2-5.2); ALT/SGPT 47 U/L (12-78); BILIRUBIN,DIRECT 0.3 MG/DL (0.0-0.2); BILIRUBIN,TOTAL 1.4 MG/DL (0.2-1.0); BLOOD UREA NITROGEN 16 MG/DL (7-18); CALCIUM LEVEL 8.8 MG/DL (8.5-10.1); CARBON DIOXIDE LEVEL 24 MEQ/L (21-32); CHLORIDE LEVEL 109 MEQ/L (98-107); GLOMERULAR FILTRATION RATE > 60.0 (>51); GLUCOSE, FASTING 154 MG/DL (70-100); MAGNESIUM LEVEL 2.2 MG/DL (1.8-2.4); POTASSIUM SERUM 3.7 MEQ/L (3.5-5.1); SODIUM LEVEL 141 MEQ/L (136-145); TOTAL PROTEIN 6.2 GM/DL (6.4-8.2)
[2021-11-20] MEDS: SUCRALFATE 1 GM TAB PO SCH ×4 (08:33→20:49)
[2021-11-20] MEDS: PREGABALIN 100 MG CAP (LYRICA) PO SCH ×2 (08:34→17:27)
[2021-11-20] MEDS: lisinopriL 5 MG TAB PO SCH (08:34)
[2021-11-20] MEDS: PANTOPRAZOLE 40MG TAB (PROTONIX) PO SCH ×2 (08:34→20:50)
[2021-11-20] MEDS: ROSUVASTATIN 10 MG TAB (CRESTOR) PO SCH (08:34)
[2021-11-20] MEDS: BACLOFEN 10 MG TAB PO SCH ×2 (08:34→20:49)
[2021-11-20] MEDS: CETIRIZINE (ZyrTEC) 10 MG TAB PO SCH (08:34)
[2021-11-20] MEDS: guaiFENesin ER 600 MG TAB PO SCH ×2 (08:34→20:49)
[2021-11-20] MEDS: LACTOBACILLUS ACIDOPHILUS CAP (BACID) PO SCH (08:35)
[2021-11-20] MEDS: ENOXAPARIN 40MG/0.4ML SYRINGE (J1650 PER 10MG) SC SCH ×2 (08:35→20:50)
[2021-11-20] MEDS: DULoxetine 30MG CAPSULE (CYMBALTA) PO SCH (08:35)
[2021-11-20] MEDS: oxyCODONE 5MG TAB PO PRN ×2 (08:35→22:36)
[2021-11-20] MEDS: LEVEMIR (INSULIN DETEMIR) 1 UNITS/0.01ML SC SCH (08:36)
[2021-11-20] MEDS: INSULIN LISPRO (NovoLOG) PER UNIT SC SCH ×6 (08:36→22:37)
[2021-11-20] MEDS ORDERED: DULoxetine 30MG CAPSULE (CYMBALTA) PO SCH (09:00)
[2021-11-20 12:00] VITALS: BP 117/65
[2021-11-20] MEDS: busPIRone 5 MG TAB PO PRN (14:18)
[2021-11-20 20:00] VITALS: BP 145/75
[2021-11-20] MEDS: REMDESIVIR 100 MG in NS 250 ML IV SCH (20:48)
[2021-11-20] MEDS: oxyBUTYnin *DITROPAN XL* 5 MG TABCR PO SCH (20:49)
[2021-11-20] MEDS: METOPROLOL SUCC *XL* 25MG TAB (TopROL *XL*) PO SCH (20:49)
[2021-11-20] MEDS: PREGABALIN 75 MG CAP(LYRICA) PO SCH (20:51)
[2021-11-20] MEDS: FLUTICASONE PROP 0.05% NASAL SPRAY 16 GM (FLONASE) SCH (21:00)
[2021-11-20] MEDS: **NOTE PATIENT COMMENT** MISC XX SCH (21:11)
[2021-11-20] MEDS: QUEtiapine FUMARATE 50MG TAB PO SCH (22:35)
[2021-11-20] MEDS: LevoFLOXacin IV 750 MG in IV 1 EA IV SCH (22:35)
[2021-11-20] MEDS: SODIUM CHLORIDE 0.9% INJ 10 ML SYR IV SCH (22:38)
[2021-11-21 04:00] VITALS: BP 118/67
[2021-11-21 06:21] LABS: BASO % 0.4 % (0.0-1.0); EOS # 0.1 10^3/uL (0.0-0.5); EOS % 1.1 % (0.0-3.0); HEMATOCRIT 36.5 % (36.0-47.0); HEMOGLOBIN 11.9 g/dl (12.0-15.5); LYMPH # 2.6 10^3/uL (1.5-5.0); MEAN CORPUSCULAR HEMOGLOBIN 32.3 pg (27.0-33.0); MEAN CORPUSCULAR HGB CONC 32.6 g/dl (32.0-36.5); MEAN CORPUSCULAR VOLUME 99.2 fl (80.0-96.0); MONO # 0.7 10^3/uL (0.0-0.8); MONO % 8.7 % (2.0-8.0); NEUTROPHILS # 4.6 10^3/uL (1.5-8.5); NEUTROPHILS % 57.2 % (36.0-66.0); PLATELET COUNT, AUTOMATED 239 10^3/uL (150-450); RED BLOOD COUNT 3.68 10^6/uL (4.00-5.40)
[2021-11-21 06:43] LABS: BLOOD UREA NITROGEN 12 MG/DL (7-18); CALCIUM LEVEL 8.6 MG/DL (8.5-10.1); CARBON DIOXIDE LEVEL 26 MEQ/L (21-32); CHLORIDE LEVEL 111 MEQ/L (98-107); CREATININE FOR GFR 0.51 MG/DL (0.55-1.30); GLOMERULAR FILTRATION RATE > 60.0 (>51); GLUCOSE, FASTING 123 MG/DL (70-100); POTASSIUM SERUM 3.5 MEQ/L (3.5-5.1); SODIUM LEVEL 143 MEQ/L (136-145)
[2021-11-21] MEDS: SUCRALFATE 1 GM TAB PO SCH ×5 (07:30→20:50)
[2021-11-21] MEDS: INSULIN LISPRO (NovoLOG) PER UNIT SC SCH ×6 (07:30→20:51)
[2021-11-21] MEDS ORDERED: POTASSIUM CHLORIDE 10MEQ SR TABLET PO ONE (07:35)
[2021-11-21] MEDS: oxyCODONE 5MG TAB PO PRN ×2 (08:02→18:35)
[2021-11-21] MEDS: ENOXAPARIN 40MG/0.4ML SYRINGE (J1650 PER 10MG) SC SCH ×2 (09:37→20:51)
[2021-11-21] MEDS: LEVEMIR (INSULIN DETEMIR) 1 UNITS/0.01ML SC SCH (09:38)
[2021-11-21] MEDS: PREGABALIN 100 MG CAP (LYRICA) PO SCH ×2 (09:40→17:24)
[2021-11-21] MEDS: DULoxetine 30MG CAPSULE (CYMBALTA) PO SCH (09:40)
[2021-11-21] MEDS: ROSUVASTATIN 10 MG TAB (CRESTOR) PO SCH (09:40)
[2021-11-21] MEDS: LACTOBACILLUS ACIDOPHILUS CAP (BACID) PO SCH (09:41)
[2021-11-21] MEDS: guaiFENesin ER 600 MG TAB PO SCH ×2 (09:41→20:50)
[2021-11-21] MEDS: PANTOPRAZOLE 40MG TAB (PROTONIX) PO SCH ×2 (09:41→20:50)
[2021-11-21] MEDS: lisinopriL 5 MG TAB PO SCH (09:41)
[2021-11-21] MEDS: CETIRIZINE (ZyrTEC) 10 MG TAB PO SCH (09:41)
[2021-11-21] MEDS: BACLOFEN 10 MG TAB PO SCH ×2 (09:41→20:50)
[2021-11-21] MEDS: busPIRone 5 MG TAB PO PRN (11:44)
[2021-11-21 11:50] VITALS: BP 138/72
[2021-11-21 20:00] VITALS: BP 133/76
[2021-11-21] MEDS: REMDESIVIR 100 MG in NS 250 ML IV SCH (20:49)
[2021-11-21] MEDS: oxyBUTYnin *DITROPAN XL* 5 MG TABCR PO SCH (20:50)
[2021-11-21] MEDS: METOPROLOL SUCC *XL* 25MG TAB (TopROL *XL*) PO SCH (20:50)
[2021-11-21] MEDS: PREGABALIN 75 MG CAP(LYRICA) PO SCH (20:50)
[2021-11-21] MEDS: FLUTICASONE PROP 0.05% NASAL SPRAY 16 GM (FLONASE) SCH (20:51)
[2021-11-21] MEDS: **NOTE PATIENT COMMENT** MISC XX SCH (21:00)
[2021-11-21] MEDS: SODIUM CHLORIDE 0.9% INJ 10 ML SYR IV SCH (21:00)
[2021-11-21] MEDS: QUEtiapine FUMARATE 50MG TAB PO SCH (21:00)
[2021-11-21] MEDS: LevoFLOXacin IV 750 MG in IV 1 EA IV SCH (22:20)
[2021-11-22 00:27] VITALS: O2SAT 93
[2021-11-22 04:00] VITALS: BP 123/61
[2021-11-22 06:40] LABS: BASO # 0.1 10^3/uL (0.0-0.2); BASO % 0.9 % (0.0-1.0); EOS # 0.1 10^3/uL (0.0-0.5); HEMATOCRIT 42.1 % (36.0-47.0); HEMOGLOBIN 13.4 g/dl (12.0-15.5); LYMPH # 2.5 10^3/uL (1.5-5.0); MEAN CORPUSCULAR HGB CONC 31.8 g/dl (32.0-36.5); MEAN CORPUSCULAR VOLUME 100.5 fl (80.0-96.0); MONO # 0.7 10^3/uL (0.0-0.8); MONO % 9.5 % (2.0-8.0); NEUTROPHILS # 3.5 10^3/uL (1.5-8.5); NEUTROPHILS % 51.9 % (36.0-66.0); PLATELET COUNT, AUTOMATED 261 10^3/uL (150-450); RED BLOOD COUNT 4.19 10^6/uL (4.00-5.40); WHITE BLOOD COUNT 6.8 10^3/uL (4.0-10.0)
[2021-11-22 07:07] LABS: BLOOD UREA NITROGEN 8 MG/DL (7-18); CALCIUM LEVEL 8.6 MG/DL (8.5-10.1); CARBON DIOXIDE LEVEL 27 MEQ/L (21-32); CHLORIDE LEVEL 110 MEQ/L (98-107); GLOMERULAR FILTRATION RATE > 60.0 (>51); GLUCOSE, FASTING 123 MG/DL (70-100); MAGNESIUM LEVEL 1.8 MG/DL (1.8-2.4); POTASSIUM SERUM 3.7 MEQ/L (3.5-5.1); SODIUM LEVEL 143 MEQ/L (136-145)
[2021-11-22] MEDS: INSULIN LISPRO (NovoLOG) PER UNIT SC SCH ×6 (07:30→20:42)
[2021-11-22] MEDS: LEVEMIR (INSULIN DETEMIR) 1 UNITS/0.01ML SC SCH ×2 (08:16→21:51)
[2021-11-22] MEDS: ENOXAPARIN 40MG/0.4ML SYRINGE (J1650 PER 10MG) SC SCH ×2 (08:17→20:44)
[2021-11-22] MEDS: DULoxetine 30MG CAPSULE (CYMBALTA) PO SCH (08:18)
[2021-11-22] MEDS: ROSUVASTATIN 10 MG TAB (CRESTOR) PO SCH (08:18)
[2021-11-22] MEDS: oxyCODONE 5MG TAB PO PRN ×3 (08:19→22:40)
[2021-11-22] MEDS: CETIRIZINE (ZyrTEC) 10 MG TAB PO SCH (08:19)
[2021-11-22] MEDS: BACLOFEN 10 MG TAB PO SCH ×2 (08:20→20:46)
[2021-11-22] MEDS: lisinopriL 5 MG TAB PO SCH (08:20)
[2021-11-22] MEDS: LACTOBACILLUS ACIDOPHILUS CAP (BACID) PO SCH (08:20)
[2021-11-22] MEDS: PANTOPRAZOLE 40MG TAB (PROTONIX) PO SCH ×2 (08:20→20:46)
[2021-11-22] MEDS: SUCRALFATE 1 GM TAB PO SCH ×4 (08:20→20:46)
[2021-11-22] MEDS: PREGABALIN 100 MG CAP (LYRICA) PO SCH ×2 (08:20→16:41)
[2021-11-22] MEDS: guaiFENesin ER 600 MG TAB PO SCH ×2 (08:21→20:46)
[2021-11-22] MEDS ORDERED: VANCOMYCIN HCL 1,000 MG in IV FLUID PLACE HOLDER 1 EA IV ONE (11:50)
[2021-11-22 12:00] VITALS: BP 139/74
[2021-11-22] MEDS ORDERED: VANCOMYCIN HCL 1,000 MG, VIAL MATE ADAPTER 1 EACH in NS 250 ML IV ONE ×2 (14:00→15:00)
[2021-11-22 20:00] VITALS: BP 151/86
[2021-11-22] MEDS: REMDESIVIR 100 MG in NS 250 ML IV SCH (20:41)
[2021-11-22] MEDS: PREGABALIN 75 MG CAP(LYRICA) PO SCH (20:44)
[2021-11-22] MEDS: oxyBUTYnin *DITROPAN XL* 5 MG TABCR PO SCH (20:44)
[2021-11-22] MEDS: METOPROLOL SUCC *XL* 25MG TAB (TopROL *XL*) PO SCH (20:45)
[2021-11-22] MEDS: LevoFLOXacin 750 MG TABLET PO SCH (20:45)
[2021-11-22] MEDS: **NOTE PATIENT COMMENT** MISC XX SCH (20:50)
[2021-11-22] MEDS: SODIUM CHLORIDE 0.9% INJ 10 ML SYR IV SCH (21:51)
[2021-11-22] MEDS: FLUTICASONE PROP 0.05% NASAL SPRAY 16 GM (FLONASE) SCH (21:52)
[2021-11-22] MEDS: QUEtiapine FUMARATE 50MG TAB PO SCH (22:40)
[2021-11-22] MEDS: VANCOMYCIN HCL 1,000 MG, VIAL MATE ADAPTER 1 EACH in D5W 250 ML IV SCH (23:59)
[2021-11-23 04:00] VITALS: BP 112/57
[2021-11-23 07:12] LABS: BASO % 0.6 % (0.0-1.0); EOS # 0.1 10^3/uL (0.0-0.5); EOS % 1.1 % (0.0-3.0); HEMATOCRIT 38.7 % (36.0-47.0); HEMOGLOBIN 12.7 g/dl (12.0-15.5); LYMPH # 2.3 10^3/uL (1.5-5.0); LYMPH % 34.6 % (24.0-44.0); MEAN CORPUSCULAR HEMOGLOBIN 32.2 pg (27.0-33.0); MEAN CORPUSCULAR HGB CONC 32.8 g/dl (32.0-36.5); MONO # 0.6 10^3/uL (0.0-0.8); MONO % 9.4 % (2.0-8.0); NEUTROPHILS # 3.5 10^3/uL (1.5-8.5); NEUTROPHILS % 53.4 % (36.0-66.0); PLATELET COUNT, AUTOMATED 255 10^3/uL (150-450); RED BLOOD COUNT 3.95 10^6/uL (4.00-5.40); WHITE BLOOD COUNT 6.5 10^3/uL (4.0-10.0)
[2021-11-23] MEDS: INSULIN LISPRO (NovoLOG) PER UNIT SC SCH ×5 (07:30→21:44)
[2021-11-23 07:39] LABS: BLOOD UREA NITROGEN 8 MG/DL (7-18); CALCIUM LEVEL 8.8 MG/DL (8.5-10.1); CARBON DIOXIDE LEVEL 29 MEQ/L (21-32); CHLORIDE LEVEL 111 MEQ/L (98-107); CREATININE FOR GFR 0.56 MG/DL (0.55-1.30); GLOMERULAR FILTRATION RATE > 60.0 (>51); GLUCOSE, FASTING 123 MG/DL (70-100); MAGNESIUM LEVEL 1.9 MG/DL (1.8-2.4); POTASSIUM SERUM 3.9 MEQ/L (3.5-5.1); SODIUM LEVEL 144 MEQ/L (136-145)
[2021-11-23] MEDS: DULoxetine 30MG CAPSULE (CYMBALTA) PO SCH (08:23)
[2021-11-23] MEDS: SUCRALFATE 1 GM TAB PO SCH ×4 (08:23→21:42)
[2021-11-23] MEDS: BACLOFEN 10 MG TAB PO SCH ×2 (08:23→21:41)
[2021-11-23] MEDS: PREGABALIN 100 MG CAP (LYRICA) PO SCH ×2 (08:23→16:58)
[2021-11-23] MEDS: CETIRIZINE (ZyrTEC) 10 MG TAB PO SCH (08:23)
[2021-11-23] MEDS: LACTOBACILLUS ACIDOPHILUS CAP (BACID) PO SCH (08:23)
[2021-11-23] MEDS: guaiFENesin ER 600 MG TAB PO SCH ×2 (08:23→21:42)
[2021-11-23] MEDS: PANTOPRAZOLE 40MG TAB (PROTONIX) PO SCH ×2 (08:23→21:41)
[2021-11-23] MEDS: ROSUVASTATIN 10 MG TAB (CRESTOR) PO SCH (08:24)
[2021-11-23] MEDS: lisinopriL 5 MG TAB PO SCH (08:24)
[2021-11-23] MEDS: ENOXAPARIN 40MG/0.4ML SYRINGE (J1650 PER 10MG) SC SCH ×2 (08:26→21:43)
[2021-11-23] MEDS: VANCOMYCIN HCL 1,000 MG, VIAL MATE ADAPTER 1 EACH in D5W 250 ML IV SCH (08:26)
[2021-11-23] MEDS: LEVEMIR (INSULIN DETEMIR) 1 UNITS/0.01ML SC SCH ×2 (08:26→21:44)
[2021-11-23] MEDS: oxyCODONE 5MG TAB PO PRN ×3 (08:38→21:49)
[2021-11-23 12:00] VITALS: BP 139/85
[2021-11-23] MEDS: ceFAZolin SOD 2 GM in IV 1 EA IV SCH (18:11)
[2021-11-23] MEDS: REMDESIVIR 100 MG in NS 250 ML IV SCH (19:50)
[2021-11-23 20:00] VITALS: BP 151/74
[2021-11-23] MEDS: **NOTE PATIENT COMMENT** MISC XX SCH (21:00)
[2021-11-23] MEDS: oxyBUTYnin *DITROPAN XL* 5 MG TABCR PO SCH (21:41)
[2021-11-23] MEDS: METOPROLOL SUCC *XL* 25MG TAB (TopROL *XL*) PO SCH (21:41)
[2021-11-23] MEDS: LevoFLOXacin 750 MG TABLET PO SCH (21:42)
[2021-11-23] MEDS: QUEtiapine FUMARATE 50MG TAB PO SCH (21:42)
[2021-11-23] MEDS: PREGABALIN 75 MG CAP(LYRICA) PO SCH (21:42)
[2021-11-23] MEDS: SODIUM CHLORIDE 0.9% INJ 10 ML SYR IV SCH (21:44)
[2021-11-23] MEDS: FLUTICASONE PROP 0.05% NASAL SPRAY 16 GM (FLONASE) SCH (21:45)
[2021-11-24] MEDS: ceFAZolin SOD 2 GM in IV 1 EA IV SCH ×3 (00:11→17:43)
[2021-11-24 04:00] VITALS: BP 132/63
[2021-11-24] MEDS: oxyCODONE 5MG TAB PO PRN ×3 (06:29→20:31)
[2021-11-24 07:26] LABS: BASO # 0.1 10^3/uL (0.0-0.2); BASO % 1.1 % (0.0-1.0); EOS # 0.1 10^3/uL (0.0-0.5); EOS % 1.6 % (0.0-3.0); HEMATOCRIT 38.6 % (36.0-47.0); HEMOGLOBIN 12.6 g/dl (12.0-15.5); LYMPH # 2.2 10^3/uL (1.5-5.0); LYMPH % 34.3 % (24.0-44.0); MEAN CORPUSCULAR HEMOGLOBIN 31.9 pg (27.0-33.0); MEAN CORPUSCULAR HGB CONC 32.6 g/dl (32.0-36.5); MEAN CORPUSCULAR VOLUME 97.7 fl (80.0-96.0); MONO # 0.6 10^3/uL (0.0-0.8); MONO % 9.3 % (2.0-8.0); NEUTROPHILS # 3.3 10^3/uL (1.5-8.5); NEUTROPHILS % 52.4 % (36.0-66.0); PLATELET COUNT, AUTOMATED 242 10^3/uL (150-450); RED BLOOD COUNT 3.95 10^6/uL (4.00-5.40); WHITE BLOOD COUNT 6.4 10^3/uL (4.0-10.0)
[2021-11-24 08:05] LABS: BLOOD UREA NITROGEN 8 MG/DL (7-18); CALCIUM LEVEL 8.5 MG/DL (8.5-10.1); CARBON DIOXIDE LEVEL 29 MEQ/L (21-32); CHLORIDE LEVEL 110 MEQ/L (98-107); GLOMERULAR FILTRATION RATE > 60.0 (>51); GLUCOSE, FASTING 121 MG/DL (70-100); MAGNESIUM LEVEL 1.9 MG/DL (1.8-2.4); POTASSIUM SERUM 3.6 MEQ/L (3.5-5.1); SODIUM LEVEL 143 MEQ/L (136-145)
[2021-11-24 09:00] VITALS: O2SAT 95
[2021-11-24] MEDS: BACLOFEN 10 MG TAB PO SCH ×2 (09:02→20:32)
[2021-11-24] MEDS: SUCRALFATE 1 GM TAB PO SCH ×4 (09:03→20:29)
[2021-11-24] MEDS: PREGABALIN 100 MG CAP (LYRICA) PO SCH ×2 (09:03→17:44)
[2021-11-24] MEDS: guaiFENesin ER 600 MG TAB PO SCH ×2 (09:03→20:31)
[2021-11-24] MEDS: LACTOBACILLUS ACIDOPHILUS CAP (BACID) PO SCH (09:03)
[2021-11-24] MEDS: CETIRIZINE (ZyrTEC) 10 MG TAB PO SCH (09:04)
[2021-11-24] MEDS: DULoxetine 30MG CAPSULE (CYMBALTA) PO SCH (09:06)
[2021-11-24] MEDS: ENOXAPARIN 40MG/0.4ML SYRINGE (J1650 PER 10MG) SC SCH ×2 (09:06→20:32)
[2021-11-24] MEDS: INSULIN LISPRO (NovoLOG) PER UNIT SC SCH ×4 (09:07→21:59)
[2021-11-24] MEDS: LEVEMIR (INSULIN DETEMIR) 1 UNITS/0.01ML SC SCH ×2 (09:07→21:58)
[2021-11-24] MEDS: PANTOPRAZOLE 40MG TAB (PROTONIX) PO SCH ×2 (09:07→20:31)
[2021-11-24] MEDS: ROSUVASTATIN 10 MG TAB (CRESTOR) PO SCH (09:07)
[2021-11-24] MEDS: lisinopriL 5 MG TAB PO SCH (09:08)
[2021-11-24] MEDS: busPIRone 5 MG TAB PO PRN (11:00)
[2021-11-24 11:32] VITALS: BP 137/73
[2021-11-24 20:00] VITALS: BP 141/75; O2SAT 95
[2021-11-24] MEDS: METOPROLOL SUCC *XL* 25MG TAB (TopROL *XL*) PO SCH (20:31)
[2021-11-24] MEDS: oxyBUTYnin *DITROPAN XL* 5 MG TABCR PO SCH (20:32)
[2021-11-24] MEDS: PREGABALIN 75 MG CAP(LYRICA) PO SCH (20:32)
[2021-11-24] MEDS: FLUTICASONE PROP 0.05% NASAL SPRAY 16 GM (FLONASE) SCH (20:33)
[2021-11-24] MEDS: **NOTE PATIENT COMMENT** MISC XX SCH (21:49)
[2021-11-24] MEDS: QUEtiapine FUMARATE 50MG TAB PO SCH (23:02)
[2021-11-25] VITALS (8 sets, daily range): BP systolic 111–134; BP diastolic 60–77; O2SAT 94–95
[2021-11-25] MEDS: ceFAZolin SOD 2 GM in IV 1 EA IV SCH ×3 (01:10→17:29)
[2021-11-25 06:25] LABS: BASO # 0.1 10^3/uL (0.0-0.2); BASO % 1.1 % (0.0-1.0); EOS # 0.1 10^3/uL (0.0-0.5); EOS % 1.8 % (0.0-3.0); HEMATOCRIT 37.5 % (36.0-47.0); HEMOGLOBIN 12.3 g/dl (12.0-15.5); LYMPH # 2.7 10^3/uL (1.5-5.0); LYMPH % 41.6 % (24.0-44.0); MEAN CORPUSCULAR HEMOGLOBIN 32.2 pg (27.0-33.0); MEAN CORPUSCULAR HGB CONC 32.8 g/dl (32.0-36.5); MEAN CORPUSCULAR VOLUME 98.2 fl (80.0-96.0); MONO # 0.6 10^3/uL (0.0-0.8); NEUTROPHILS % 45.1 % (36.0-66.0); PLATELET COUNT, AUTOMATED 254 10^3/uL (150-450); RED BLOOD COUNT 3.82 10^6/uL (4.00-5.40); WHITE BLOOD COUNT 6.6 10^3/uL (4.0-10.0)
[2021-11-25 07:03] LABS: BLOOD UREA NITROGEN 10 MG/DL (7-18); CALCIUM LEVEL 8.7 MG/DL (8.5-10.1); CARBON DIOXIDE LEVEL 28 MEQ/L (21-32); CHLORIDE LEVEL 112 MEQ/L (98-107); CREATININE FOR GFR 0.51 MG/DL (0.55-1.30); GLOMERULAR FILTRATION RATE > 60.0 (>51); GLUCOSE, FASTING 111 MG/DL (70-100); POTASSIUM SERUM 3.4 MEQ/L (3.5-5.1); SODIUM LEVEL 144 MEQ/L (136-145)
[2021-11-25] MEDS: LACTOBACILLUS ACIDOPHILUS CAP (BACID) PO SCH (07:56)
[2021-11-25] MEDS: guaiFENesin ER 600 MG TAB PO SCH ×2 (07:57→21:44)
[2021-11-25] MEDS: DULoxetine 30MG CAPSULE (CYMBALTA) PO SCH (07:57)
[2021-11-25] MEDS: BACLOFEN 10 MG TAB PO SCH ×2 (07:57→21:41)
[2021-11-25] MEDS: CETIRIZINE (ZyrTEC) 10 MG TAB PO SCH (07:57)
[2021-11-25] MEDS: INSULIN LISPRO (NovoLOG) PER UNIT SC SCH ×4 (07:58→21:45)
[2021-11-25] MEDS: PANTOPRAZOLE 40MG TAB (PROTONIX) PO SCH ×2 (08:03→21:44)
[2021-11-25] MEDS: PREGABALIN 100 MG CAP (LYRICA) PO SCH ×2 (08:03→17:29)
[2021-11-25] MEDS: SUCRALFATE 1 GM TAB PO SCH ×4 (08:04→21:44)
[2021-11-25] MEDS: ROSUVASTATIN 10 MG TAB (CRESTOR) PO SCH (08:04)
[2021-11-25] MEDS: oxyCODONE 5MG TAB PO PRN ×3 (08:04→21:43)
[2021-11-25] MEDS: ENOXAPARIN 40MG/0.4ML SYRINGE (J1650 PER 10MG) SC SCH ×2 (08:05→21:38)
[2021-11-25] MEDS: LEVEMIR (INSULIN DETEMIR) 1 UNITS/0.01ML SC SCH ×2 (08:06→23:43)
[2021-11-25] MEDS: lisinopriL 5 MG TAB PO SCH (09:49)
[2021-11-25] MEDS ORDERED: LIDOCAINE 1% MDV 20ML VIAL As Ordered ONE (10:54)
[2021-11-25] MEDS ORDERED: SODIUM CHLORIDE 0.9% INJ 10 ML SYR IV PRN (12:15)
[2021-11-25] MEDS ORDERED: POTASSIUM CHLORIDE 10MEQ SR TABLET PO ONE (15:00)
[2021-11-25] MEDS: SODIUM CHLORIDE 0.9% INJ 10 ML SYR IV SCH (17:30)
[2021-11-25] MEDS: **NOTE PATIENT COMMENT** MISC XX SCH (21:00)
[2021-11-25] MEDS: FLUTICASONE PROP 0.05% NASAL SPRAY 16 GM (FLONASE) SCH (21:38)
[2021-11-25] MEDS: METOPROLOL SUCC *XL* 25MG TAB (TopROL *XL*) PO SCH (21:43)
[2021-11-25] MEDS: PREGABALIN 75 MG CAP(LYRICA) PO SCH (21:44)
[2021-11-25] MEDS: oxyBUTYnin *DITROPAN XL* 5 MG TABCR PO SCH (21:44)
[2021-11-25] MEDS: QUEtiapine FUMARATE 50MG TAB PO SCH (23:45)
[2021-11-26] VITALS (14 sets, daily range): BP systolic 129–136; BP diastolic 63–80; O2SAT 88–96
[2021-11-26] MEDS: ceFAZolin SOD 2 GM in IV 1 EA IV SCH ×3 (01:25→18:22)
[2021-11-26 05:58] LABS: BASO # 0.1 10^3/uL (0.0-0.2); BASO % 1.2 % (0.0-1.0); EOS # 0.1 10^3/uL (0.0-0.5); EOS % 1.8 % (0.0-3.0); HEMATOCRIT 37.8 % (36.0-47.0); HEMOGLOBIN 12.7 g/dl (12.0-15.5); LYMPH # 2.9 10^3/uL (1.5-5.0); LYMPH % 47.8 % (24.0-44.0); MEAN CORPUSCULAR HEMOGLOBIN 32.5 pg (27.0-33.0); MEAN CORPUSCULAR HGB CONC 33.6 g/dl (32.0-36.5); MEAN CORPUSCULAR VOLUME 96.7 fl (80.0-96.0); MONO # 0.6 10^3/uL (0.0-0.8); MONO % 10.3 % (2.0-8.0); NEUTROPHILS # 2.3 10^3/uL (1.5-8.5); NEUTROPHILS % 37.7 % (36.0-66.0); PLATELET COUNT, AUTOMATED 241 10^3/uL (150-450); RED BLOOD COUNT 3.91 10^6/uL (4.00-5.40)
[2021-11-26] MEDS: SODIUM CHLORIDE 0.9% INJ 10 ML SYR IV SCH ×2 (06:11→18:22)
[2021-11-26 06:46] LABS: BLOOD UREA NITROGEN 9 MG/DL (7-18); CALCIUM LEVEL 8.8 MG/DL (8.5-10.1); CARBON DIOXIDE LEVEL 26 MEQ/L (21-32); CHLORIDE LEVEL 113 MEQ/L (98-107); CREATININE FOR GFR 0.48 MG/DL (0.55-1.30); GLOMERULAR FILTRATION RATE > 60.0 (>51); GLUCOSE, FASTING 106 MG/DL (70-100); MAGNESIUM LEVEL 1.9 MG/DL (1.8-2.4); POTASSIUM SERUM 3.8 MEQ/L (3.5-5.1); SODIUM LEVEL 147 MEQ/L (136-145)
[2021-11-26] MEDS: ENOXAPARIN 40MG/0.4ML SYRINGE (J1650 PER 10MG) SC SCH ×2 (08:55→22:11)
[2021-11-26] MEDS: LEVEMIR (INSULIN DETEMIR) 1 UNITS/0.01ML SC SCH ×2 (08:56→22:12)
[2021-11-26] MEDS: INSULIN LISPRO (NovoLOG) PER UNIT SC SCH ×4 (08:56→22:13)
[2021-11-26] MEDS: DULoxetine 30MG CAPSULE (CYMBALTA) PO SCH (08:57)
[2021-11-26] MEDS: SUCRALFATE 1 GM TAB PO SCH ×4 (08:57→22:06)
[2021-11-26] MEDS: ROSUVASTATIN 10 MG TAB (CRESTOR) PO SCH (08:57)
[2021-11-26] MEDS: guaiFENesin ER 600 MG TAB PO SCH ×2 (08:57→22:07)
[2021-11-26] MEDS: PREGABALIN 100 MG CAP (LYRICA) PO SCH ×2 (08:58→18:21)
[2021-11-26] MEDS: PANTOPRAZOLE 40MG TAB (PROTONIX) PO SCH ×2 (08:58→23:47)
[2021-11-26] MEDS: LACTOBACILLUS ACIDOPHILUS CAP (BACID) PO SCH (08:58)
[2021-11-26] MEDS: BACLOFEN 10 MG TAB PO SCH ×2 (08:58→22:05)
[2021-11-26] MEDS: CETIRIZINE (ZyrTEC) 10 MG TAB PO SCH (08:58)
[2021-11-26] MEDS: lisinopriL 5 MG TAB PO SCH (08:59)
[2021-11-26] MEDS: oxyCODONE 5MG TAB PO PRN ×3 (09:00→22:10)
[2021-11-26] MEDS: busPIRone 5 MG TAB PO PRN (14:06)
[2021-11-26] MEDS ORDERED: CEFA2SOL IV (16:32)
[2021-11-26] MEDS: **NOTE PATIENT COMMENT** MISC XX SCH (21:00)
[2021-11-26] MEDS: oxyBUTYnin *DITROPAN XL* 5 MG TABCR PO SCH (22:05)
[2021-11-26] MEDS: PREGABALIN 75 MG CAP(LYRICA) PO SCH (22:06)
[2021-11-26] MEDS: METOPROLOL SUCC *XL* 25MG TAB (TopROL *XL*) PO SCH (22:09)
[2021-11-26] MEDS: FLUTICASONE PROP 0.05% NASAL SPRAY 16 GM (FLONASE) SCH (22:11)
[2021-11-26] MEDS: QUEtiapine FUMARATE 50MG TAB PO SCH (23:46)
[2021-11-26] MEDS ORDERED: D5W/0.9% SODIUM CHLORIDE 1,000 ML IV SCH (23:55)
[2021-11-27] VITALS (10 sets, daily range): BP systolic 123–144; BP diastolic 72–81; O2SAT 90–96
[2021-11-27] MEDS: ceFAZolin SOD 2 GM in IV 1 EA IV SCH ×3 (01:19→16:53)
[2021-11-27] MEDS: SODIUM CHLORIDE 0.9% INJ 10 ML SYR IV SCH ×2 (06:00→18:00)
[2021-11-27] MEDS: INSULIN LISPRO (NovoLOG) PER UNIT SC SCH ×4 (06:00→16:52)
[2021-11-27 07:02] LABS: BASO % 0.8 % (0.0-1.0); EOS # 0.1 10^3/uL (0.0-0.5); EOS % 2.3 % (0.0-3.0); HEMATOCRIT 37.3 % (36.0-47.0); HEMOGLOBIN 12.4 g/dl (12.0-15.5); LYMPH # 2.4 10^3/uL (1.5-5.0); LYMPH % 49.2 % (24.0-44.0); MEAN CORPUSCULAR HEMOGLOBIN 32.1 pg (27.0-33.0); MEAN CORPUSCULAR HGB CONC 33.2 g/dl (32.0-36.5); MEAN CORPUSCULAR VOLUME 96.6 fl (80.0-96.0); MONO # 0.6 10^3/uL (0.0-0.8); MONO % 11.3 % (2.0-8.0); NEUTROPHILS # 1.7 10^3/uL (1.5-8.5); NEUTROPHILS % 35.6 % (36.0-66.0); PLATELET COUNT, AUTOMATED 242 10^3/uL (150-450); RED BLOOD COUNT 3.86 10^6/uL (4.00-5.40); WHITE BLOOD COUNT 4.9 10^3/uL (4.0-10.0)
[2021-11-27 07:44] LABS: ALBUMIN 2.4 GM/DL (3.2-5.2); ALT/SGPT 32 U/L (12-78); BILIRUBIN,TOTAL 0.5 MG/DL (0.2-1.0); BLOOD UREA NITROGEN 9 MG/DL (7-18); C REACTIVE PROTEIN QUANTITATIV 0.44 MG/DL (0.00-0.30); CALCIUM LEVEL 8.3 MG/DL (8.5-10.1); CARBON DIOXIDE LEVEL 28 MEQ/L (21-32); CHLORIDE LEVEL 112 MEQ/L (98-107); CREATININE FOR GFR 0.53 MG/DL (0.55-1.30); GLOMERULAR FILTRATION RATE > 60.0 (>51); GLUCOSE, FASTING 133 MG/DL (70-100); POTASSIUM SERUM 3.3 MEQ/L (3.5-5.1); SODIUM LEVEL 143 MEQ/L (136-145); TOTAL PROTEIN 5.7 GM/DL (6.4-8.2)
[2021-11-27 07:50] LABS: ERYTHROCYTE SEDIMENTATION RATE 19 mm/hr (0-30)
[2021-11-27] MEDS: LACTOBACILLUS ACIDOPHILUS CAP (BACID) PO SCH (09:02)
[2021-11-27] MEDS: LEVEMIR (INSULIN DETEMIR) 1 UNITS/0.01ML SC SCH (09:02)
[2021-11-27] MEDS: SUCRALFATE 1 GM TAB PO SCH ×3 (09:02→16:52)
[2021-11-27] MEDS: BACLOFEN 10 MG TAB PO SCH (09:03)
[2021-11-27] MEDS: PREGABALIN 100 MG CAP (LYRICA) PO SCH ×2 (09:03→16:52)
[2021-11-27] MEDS: DULoxetine 30MG CAPSULE (CYMBALTA) PO SCH (09:03)
[2021-11-27] MEDS: ENOXAPARIN 40MG/0.4ML SYRINGE (J1650 PER 10MG) SC SCH (09:03)
[2021-11-27] MEDS: PANTOPRAZOLE 40MG TAB (PROTONIX) PO SCH (09:03)
[2021-11-27] MEDS: CETIRIZINE (ZyrTEC) 10 MG TAB PO SCH (09:03)
[2021-11-27] MEDS: guaiFENesin ER 600 MG TAB PO SCH (09:03)
[2021-11-27] MEDS: ROSUVASTATIN 10 MG TAB (CRESTOR) PO SCH (09:03)
[2021-11-27] MEDS: lisinopriL 5 MG TAB PO SCH (09:05)
[2021-11-27] MEDS: oxyCODONE 5MG TAB PO PRN (09:06)
[2021-11-27] MEDS ORDERED: POTASSIUM CHLORIDE 10MEQ SR TABLET PO SCH (12:15)
[2021-11-27] MEDS ORDERED: CETACAINE SPRAY 5GM As Ordered ONE (17:02)
[2021-11-27] MEDS ORDERED: LIDOCAINE VISCOUS 2% SOLN 15ML UDC As Ordered ONE (17:02)
[2021-11-27] MEDS ORDERED: propofoL 200 MG/20 ML VIAL As Ordered ONE ×2 (17:41→17:42)
[2021-11-27] MEDS ORDERED: MIDAZOLAM INJ 2MG/2ML VIAL (J2250 PER 1MG) As Ordered ONE (17:46)
[2021-11-27] MEDS ORDERED: fentaNYL 100 MCG/2 ML INJECTION As Ordered ONE (17:46)
[2021-11-30] MEDS ORDERED: SODIUM CHLORIDE 0.9% INJ 10 ML SYR IV ONE (01:00)
== END 2021-11-27 19:45 | disposition home or self-care (01) | DRG 177 ==
LOC: M ED 12:07 → M ED INP 19:00 → ENRESERV 21:55 → M 4MAIN 23:15
PROVIDERS: ADMIT Internal Medicine; ATTEND General Practice
PROC: XW033E5 Introduction of Remdesivir Anti-infective into Peripheral Vein, Percutaneous Approach, New Technology Group 5 (ICD-10-PCS; principal; 2021-11-19)
PROC: 02HV33Z Insertion of Infusion Device into Superior Vena Cava, Percutaneous Approach (ICD-10-PCS; 2021-11-25)
PROC: B246ZZ4 Ultrasonography of Right and Left Heart, Transesophageal (ICD-10-PCS; 2021-11-27)
DX: U07.1 COVID-19 (principal); J12.82 Pneumonia due to coronavirus disease 2019; J15.9 Unspecified bacterial pneumonia; I33.0 Acute and subacute infective endocarditis; R78.81 Bacteremia; Z68.41 Body mass index [BMI] 40.0-44.9, adult; E87.0 Hyperosmolality and hypernatremia; E11.9 Type 2 diabetes mellitus without complications; I10 Essential (primary) hypertension; E78.5 Hyperlipidemia, unspecified; K21.9 Gastro-esophageal reflux disease without esophagitis; G47.33 Obstructive sleep apnea (adult) (pediatric); Z98.84 Bariatric surgery status; Z90.49 Acquired absence of other specified parts of digestive tract; M32.9 Systemic lupus erythematosus, unspecified; G89.29 Other chronic pain; F41.9 Anxiety disorder, unspecified; F32.A Depression, unspecified; N32.81 Overactive bladder; M79.7 Fibromyalgia; B95.61 Methicillin susceptible Staphylococcus aureus infection as the cause of diseases classified elsewhere; E66.9 Obesity, unspecified; E87.6 Hypokalemia; I27.20 Pulmonary hypertension, unspecified; I08.0 Rheumatic disorders of both mitral and aortic valves; Z79.4 Long term (current) use of insulin; Z79.899 Other long term (current) drug therapy; Z88.8 Allergy status to other drugs, medicaments and biological substances; Z91.018 Allergy to other foods

== ENCOUNTER → 2021-12-02 | Outpatient (REF) | payer OTHER ==
[~2021-12-02] MED LIST changes: +ALIG4CAP PO; +CEFA2SOL IV; +FLON1SPR; +OXYB5TAB10 PO; +ROSU10TA6 PO; +TOLN1CRE23 TOP
[2021-12-02 15:58] LABS: BASO # 0.1 10^3/uL (0.0-0.2); BASO % 0.9 % (0.0-1.0); EOS # 0.1 10^3/uL (0.0-0.5); EOS % 1.9 % (0.0-3.0); HEMATOCRIT 38.4 % (36.0-47.0); HEMOGLOBIN 12.3 g/dl (12.0-15.5); LYMPH # 2.3 10^3/uL (1.5-5.0); LYMPH % 40.3 % (24.0-44.0); MEAN CORPUSCULAR HEMOGLOBIN 31.7 pg (27.0-33.0); MONO # 0.5 10^3/uL (0.0-0.8); NEUTROPHILS # 2.8 10^3/uL (1.5-8.5); NEUTROPHILS % 48.6 % (36.0-66.0); PLATELET COUNT, AUTOMATED 254 10^3/uL (150-450); RED BLOOD COUNT 3.88 10^6/uL (4.00-5.40); WHITE BLOOD COUNT 5.8 10^3/uL (4.0-10.0)
[2021-12-02 16:16] LABS: ERYTHROCYTE SEDIMENTATION RATE 19 mm/hr (0-30)
[2021-12-02 16:39] LABS: BLOOD UREA NITROGEN 7 MG/DL (7-18); CALCIUM LEVEL 8.7 MG/DL (8.5-10.1); CARBON DIOXIDE LEVEL 30 MEQ/L (21-32); CHLORIDE LEVEL 108 MEQ/L (98-107); CREATININE FOR GFR 0.63 MG/DL (0.55-1.30); GLOMERULAR FILTRATION RATE > 60.0 (>51); GLUCOSE, FASTING 105 MG/DL (70-100); POTASSIUM SERUM 3.6 MEQ/L (3.5-5.1); SODIUM LEVEL 144 MEQ/L (136-145)
== END ==
LOC: M SHH 15:28
PROVIDERS: ATTEND General Practice
DX: I35.8 Other nonrheumatic aortic valve disorders (principal); B95.61 Methicillin susceptible Staphylococcus aureus infection as the cause of diseases classified elsewhere

== ENCOUNTER → 2021-12-09 | Outpatient (REF) | payer OTHER ==
[2021-12-09 17:49] LABS: BASO % 0.7 % (0.0-1.0); EOS # 0.1 10^3/uL (0.0-0.5); EOS % 2.2 % (0.0-3.0); HEMATOCRIT 39.5 % (36.0-47.0); HEMOGLOBIN 12.9 g/dl (12.0-15.5); LYMPH # 1.7 10^3/uL (1.5-5.0); LYMPH % 32.3 % (24.0-44.0); MEAN CORPUSCULAR HEMOGLOBIN 32.1 pg (27.0-33.0); MEAN CORPUSCULAR HGB CONC 32.7 g/dl (32.0-36.5); MEAN CORPUSCULAR VOLUME 98.3 fl (80.0-96.0); MONO # 0.5 10^3/uL (0.0-0.8); MONO % 9.5 % (2.0-8.0); NEUTROPHILS # 2.9 10^3/uL (1.5-8.5); NEUTROPHILS % 54.7 % (36.0-66.0); PLATELET COUNT, AUTOMATED 203 10^3/uL (150-450); RED BLOOD COUNT 4.02 10^6/uL (4.00-5.40); WHITE BLOOD COUNT 5.4 10^3/uL (4.0-10.0)
[2021-12-09 18:25] LABS: BLOOD UREA NITROGEN 10 MG/DL (7-18); CALCIUM LEVEL 8.6 MG/DL (8.5-10.1); CARBON DIOXIDE LEVEL 27 MEQ/L (21-32); CHLORIDE LEVEL 110 MEQ/L (98-107); CREATININE FOR GFR 0.71 MG/DL (0.55-1.30); GLOMERULAR FILTRATION RATE > 60.0 (>51); GLUCOSE, FASTING 188 MG/DL (70-100); POTASSIUM SERUM 3.8 MEQ/L (3.5-5.1); SODIUM LEVEL 143 MEQ/L (136-145)
[2021-12-09 18:48] LABS: ERYTHROCYTE SEDIMENTATION RATE 17 mm/hr (0-30)
== END ==
LOC: M SHH 17:18
PROVIDERS: ATTEND Internal Medicine Infectious Disease
DX: I38 Endocarditis, valve unspecified (principal)

== ENCOUNTER → 2021-12-16 | Outpatient (REF) | payer OTHER ==
[2021-12-16 15:41] LABS: BASO % 0.5 % (0.0-1.0); EOS % 0.2 % (0.0-3.0); HEMATOCRIT 41.7 % (36.0-47.0); HEMOGLOBIN 13.4 g/dl (12.0-15.5); LYMPH # 1.8 10^3/uL (1.5-5.0); LYMPH % 20.4 % (24.0-44.0); MEAN CORPUSCULAR HEMOGLOBIN 32.1 pg (27.0-33.0); MEAN CORPUSCULAR HGB CONC 32.1 g/dl (32.0-36.5); MEAN CORPUSCULAR VOLUME 99.8 fl (80.0-96.0); MONO # 0.6 10^3/uL (0.0-0.8); MONO % 7.5 % (2.0-8.0); NEUTROPHILS # 6.1 10^3/uL (1.5-8.5); PLATELET COUNT, AUTOMATED 236 10^3/uL (150-450); RED BLOOD COUNT 4.18 10^6/uL (4.00-5.40); WHITE BLOOD COUNT 8.6 10^3/uL (4.0-10.0)
[2021-12-16 16:28] LABS: ERYTHROCYTE SEDIMENTATION RATE 8 mm/hr (0-30)
[2021-12-16 17:28] LABS: BLOOD UREA NITROGEN 12 MG/DL (7-18); C REACTIVE PROTEIN QUANTITATIV 0.66 MG/DL (0.00-0.30); CALCIUM LEVEL 8.4 MG/DL (8.5-10.1); CARBON DIOXIDE LEVEL 23 MEQ/L (21-32); CHLORIDE LEVEL 103 MEQ/L (98-107); GLOMERULAR FILTRATION RATE > 60.0 (>51); GLUCOSE, FASTING 330 MG/DL (70-100); POTASSIUM SERUM 3.9 MEQ/L (3.5-5.1); SODIUM LEVEL 138 MEQ/L (136-145)
== END ==
LOC: M SHH 15:10
PROVIDERS: ATTEND Student in an Organized Health Care Education/Training Program
DX: I35.8 Other nonrheumatic aortic valve disorders (principal)

== ENCOUNTER → 2021-12-24 | Outpatient (REF) | payer OTHER ==
[~2021-12-24] MED LIST changes: +ALBU6.7H6 INH; -MAXA10TA14 PO; -PROV108A INH; +RIZA10TA64 PO
[2021-12-24 15:56] LABS: BASO % 0.6 % (0.0-1.0); EOS # 0.2 10^3/uL (0.0-0.5); EOS % 2.3 % (0.0-3.0); HEMATOCRIT 41.2 % (36.0-47.0); HEMOGLOBIN 13.4 g/dl (12.0-15.5); LYMPH # 2.8 10^3/uL (1.5-5.0); LYMPH % 39.8 % (24.0-44.0); MEAN CORPUSCULAR HEMOGLOBIN 32.3 pg (27.0-33.0); MEAN CORPUSCULAR HGB CONC 32.5 g/dl (32.0-36.5); MEAN CORPUSCULAR VOLUME 99.3 fl (80.0-96.0); MONO # 0.8 10^3/uL (0.0-0.8); MONO % 10.7 % (2.0-8.0); NEUTROPHILS # 3.3 10^3/uL (1.5-8.5); NEUTROPHILS % 46.2 % (36.0-66.0); PLATELET COUNT, AUTOMATED 220 10^3/uL (150-450); RED BLOOD COUNT 4.15 10^6/uL (4.00-5.40)
[2021-12-24 16:29] LABS: BLOOD UREA NITROGEN 8 MG/DL (7-18); C REACTIVE PROTEIN QUANTITATIV 0.47 MG/DL (0.00-0.30); CALCIUM LEVEL 8.5 MG/DL (8.5-10.1); CARBON DIOXIDE LEVEL 28 MEQ/L (21-32); CHLORIDE LEVEL 105 MEQ/L (98-107); CREATININE FOR GFR 0.66 MG/DL (0.55-1.30); GLOMERULAR FILTRATION RATE > 60.0 (>51); GLUCOSE, FASTING 209 MG/DL (70-100); POTASSIUM SERUM 3.9 MEQ/L (3.5-5.1); SODIUM LEVEL 139 MEQ/L (136-145)
[2021-12-24 17:23] LABS: ERYTHROCYTE SEDIMENTATION RATE 18 mm/hr (0-30)
== END ==
LOC: M SHH 15:26
PROVIDERS: ATTEND General Practice
DX: I33.9 Acute and subacute endocarditis, unspecified (principal); B95.61 Methicillin susceptible Staphylococcus aureus infection as the cause of diseases classified elsewhere

== ENCOUNTER → 2021-12-30 | Outpatient (REF) | payer OTHER ==
[2021-12-30 18:09] LABS: BASO # 0.1 10^3/uL (0.0-0.2); BASO % 0.9 % (0.0-1.0); EOS # 0.1 10^3/uL (0.0-0.5); EOS % 1.5 % (0.0-3.0); HEMATOCRIT 42.9 % (36.0-47.0); HEMOGLOBIN 13.8 g/dl (12.0-15.5); LYMPH # 2.1 10^3/uL (1.5-5.0); LYMPH % 31.3 % (24.0-44.0); MEAN CORPUSCULAR HEMOGLOBIN 31.6 pg (27.0-33.0); MEAN CORPUSCULAR HGB CONC 32.2 g/dl (32.0-36.5); MEAN CORPUSCULAR VOLUME 98.2 fl (80.0-96.0); MONO # 0.5 10^3/uL (0.0-0.8); NEUTROPHILS # 3.8 10^3/uL (1.5-8.5); PLATELET COUNT, AUTOMATED 229 10^3/uL (150-450); RED BLOOD COUNT 4.37 10^6/uL (4.00-5.40); WHITE BLOOD COUNT 6.5 10^3/uL (4.0-10.0)
[2021-12-30 18:52] LABS: BLOOD UREA NITROGEN 8 MG/DL (7-18); CALCIUM LEVEL 8.9 MG/DL (8.5-10.1); CARBON DIOXIDE LEVEL 27 MEQ/L (21-32); CHLORIDE LEVEL 105 MEQ/L (98-107); CREATININE FOR GFR 0.66 MG/DL (0.55-1.30); GLOMERULAR FILTRATION RATE > 60.0 (>51); GLUCOSE, FASTING 176 MG/DL (70-100); POTASSIUM SERUM 4.1 MEQ/L (3.5-5.1); SODIUM LEVEL 137 MEQ/L (136-145)
[2021-12-30 20:08] LABS: ERYTHROCYTE SEDIMENTATION RATE 15 mm/hr (0-30)
== END ==
LOC: M SHH 17:40
PROVIDERS: ATTEND Internal Medicine Infectious Disease
DX: I35.8 Other nonrheumatic aortic valve disorders (principal)

== ENCOUNTER 2022-03-20 09:31 | Observation (INO) | payer OTHER ==
[~2022-03-20] VITALS: Ht 162.6 cm; Wt 104.2 kg
[2022-03-20] VITALS (9 sets, daily range): BP systolic 113–115; BP diastolic 66–67; O2SAT 86–95
[~2022-03-20 09:31] MED LIST changes: -DOXY-350 PO; +DOXY-444 PO; +METR0.7526 TOP; -METR0.7533 TOP
[2022-03-20] MEDS ORDERED: IBUPROFEN 400MG TAB PO ONE (11:10)
[2022-03-20 11:53] LABS: VENOUS BASE EXCESS -2.6 (-2.0-2.0); VENOUS HCO3 22.8 MEQ/L (23.0-27.0); VENOUS O2 SATURATION 87.9 % (60.0-80.0); VENOUS PARTIAL PRESSURE O2 56.8 mmHg (30.0-50.0); VENOUS PH 7.353 UNITS (7.330-7.430); VENOUS STANDARD HCO3 22.1 MEQ/L; VENOUS TOTAL CO2 24.1 MEQ/L (24.0-28.0)
[2022-03-20 12:02] LABS: BASO % 0.3 % (0.0-1.0); EOS % 0.1 % (0.0-3.0); HEMATOCRIT 42.5 % (36.0-47.0); HEMOGLOBIN 13.9 g/dl (12.0-15.5); LYMPH # 1.1 10^3/uL (1.5-5.0); LYMPH % 11.4 % (24.0-44.0); MEAN CORPUSCULAR HEMOGLOBIN 31.2 pg (27.0-33.0); MEAN CORPUSCULAR HGB CONC 32.7 g/dl (32.0-36.5); MEAN CORPUSCULAR VOLUME 95.3 fl (80.0-96.0); MONO # 0.5 10^3/uL (0.0-0.8); MONO % 5.2 % (2.0-8.0); NEUTROPHILS # 8.1 10^3/uL (1.5-8.5); NEUTROPHILS % 82.7 % (36.0-66.0); PLATELET COUNT, AUTOMATED 166 10^3/uL (150-450); RED BLOOD COUNT 4.46 10^6/uL (4.00-5.40); WHITE BLOOD COUNT 9.7 10^3/uL (4.0-10.0)
[2022-03-20 12:41] LABS: BILIRUBIN,DIRECT 0.3 MG/DL (<0.4); THYROID STIMULATING HORMONE 0.749 uIU/ML (0.55-4.78)
[2022-03-20 12:46] LABS: ALBUMIN 3.1 G/DL (3.2-5.2); ALKALINE PHOSPHATASE 75 U/L (46-116); ALT/SGPT 25 U/L (7.0-40); AST/SGOT 27 U/L (<34); BILIRUBIN,TOTAL 0.7 MG/DL (0.3-1.2); BLOOD UREA NITROGEN 15 MG/DL (9-23); CALCIUM LEVEL 8.2 MG/DL (8.5-10.1); CARBON DIOXIDE LEVEL 22 MMOL/L (20-31); CHLORIDE LEVEL 101 MMOL/L (98-107); CREATININE FOR GFR 0.71 MG/DL (0.55-1.30); GLOMERULAR FILTRATION RATE > 60.0 (>51); GLUCOSE, FASTING 190 MG/DL (60-100); POTASSIUM SERUM 3.5 MMOL/L (3.5-5.1); SODIUM LEVEL 136 MMOL/L (136-145); TOTAL PROTEIN 6.3 G/DL (5.7-8.2)
[2022-03-20] MEDS ORDERED: OSELTAMIVIR PHOSPHATE 75 MG CAP (TAMIFLU) PO ONE (13:45)
[2022-03-20] MEDS ORDERED: MUCI30TA5 PO (14:59)
[2022-03-20] MEDS ORDERED: BENZ-18 PO (14:59)
[2022-03-20] MEDS ORDERED: ONDA4TAB6 PO (14:59)
[2022-03-20] MEDS ORDERED: IPRA3SP INH (14:59)
[2022-03-20] MEDS ORDERED: PERI12LIQ PO (14:59)
[2022-03-20] MEDS ORDERED: PROA1AER2 INH (14:59)
[2022-03-20] MEDS ORDERED: cefTRIAXone SOD 1 GM in D5W MINI-BAG PLUS 50 ML IV SCH (15:00)
[2022-03-20] MEDS ORDERED: HOME MED LIST COMPLETE! XX SCH (15:00)
[2022-03-20] MEDS: AZITHROMYCIN 250MG TABLET PO SCH (15:11)
[2022-03-20] MEDS: IPRATROPIUM 0.5MG/ALBUTEROL 2.5MG INH SOL UD 3ML (DUONEB) INH SCH ×2 (16:21→20:00)
[2022-03-20] MEDS: ALBUTEROL 90 MCG/ACT 8GM HFA INHALER INH PRN (16:22)
[2022-03-20 16:34] LABS: ABG BASE EXCESS -1.8 (-2.0-2.0); ABG HCO3 23.2 MEQ/L (22.0-26.0); ABG O2 SATURATION 87.4 % (95.0-99.0); ABG PARTIAL PRESSURE CO2 40.6 mmHg (35.0-45.0); ABG STANDARD HCO3 22.7 MEQ/L (22.0-26.0); ABG TOTAL CO2 24.5 MEQ/L (22.0-29.0); ABG pH (ARTERIAL) 7.375 UNITS (7.350-7.450)
[2022-03-20] MEDS ORDERED: busPIRone 5 MG TAB PO PRN (17:10)
[2022-03-20] MEDS ORDERED: QUEtiapine FUMARATE 25 MG TAB PO PRN (17:10)
[2022-03-20] MEDS ORDERED: LIDOCAINE 5% (LIDODERM) PATCH TOP PRN (17:10)
[2022-03-20] MEDS ORDERED: BENZONATATE 100MG CAPSULE PO PRN (17:10)
[2022-03-20] MEDS ORDERED: ONDANSETRON 4MG ORAL DISINTEGRATING TAB PO PRN (17:10)
[2022-03-20] MEDS ORDERED: POLYVINYL ALCOHOL OPHTH SOLN 15 ML(LIQUITEARS) OU PRN (17:10)
[2022-03-20] MEDS ORDERED: GLUCOSE 4GM CHEW TABLET PO PRN (17:15)
[2022-03-20] MEDS ORDERED: GLUCAGON INJ 1MG VIAL SC PRN (17:15)
[2022-03-20] MEDS ORDERED: DEXTROSE 50% 50 ML SYRINGE IV PRN (17:15)
[2022-03-20] MEDS: INSULIN LISPRO (NovoLOG) PER UNIT SC SCH ×2 (18:54→21:00)
[2022-03-20] MEDS: SUCRALFATE 1 GM TAB PO SCH ×2 (18:54→21:49)
[2022-03-20] MEDS: oxyCODONE 5MG TAB PO PRN (18:55)
[2022-03-20] MEDS ORDERED: INSULIN LISPRO (NovoLOG) PER UNIT SC SCH (21:00)
[2022-03-20] MEDS: oxyBUTYnin 5 MG TAB PO SCH (21:49)
[2022-03-20] MEDS: PANTOPRAZOLE 40MG TAB (PROTONIX) PO SCH (21:49)
[2022-03-20] MEDS: QUEtiapine FUMARATE 50MG TAB PO SCH (21:49)
[2022-03-20] MEDS: BACLOFEN 10 MG TAB PO SCH (21:49)
[2022-03-20] MEDS: PREGABALIN 75 MG CAP(LYRICA) PO SCH (21:49)
[2022-03-20] MEDS: guaiFENesin DM LIQ 10ML UD PO SCH (21:50)
[2022-03-20] MEDS: FLUTICASONE PROP 0.05% NASAL SPRAY 16 GM (FLONASE) SCH (21:50)
[2022-03-20] MEDS: LEVEMIR (INSULIN DETEMIR) 1 UNITS/0.01ML SC SCH (21:50)
[2022-03-20] MEDS: OSELTAMIVIR PHOSPHATE 75 MG CAP (TAMIFLU) PO SCH (21:50)
[2022-03-20] MEDS: METOPROLOL SUCC *XL* 25MG TAB (TopROL *XL*) PO SCH (21:52)
[2022-03-21] VITALS (9 sets, daily range): BP systolic 98–129; BP diastolic 52–77; O2SAT 93
[2022-03-21] MEDS: IPRATROPIUM 0.5MG/ALBUTEROL 2.5MG INH SOL UD 3ML (DUONEB) INH SCH ×4 (01:29→19:39)
[2022-03-21] MEDS: oxyCODONE 5MG TAB PO PRN ×4 (02:44→22:31)
[2022-03-21 06:35] LABS: HEMATOCRIT 38.5 % (36.0-47.0); HEMOGLOBIN 12.3 g/dl (12.0-15.5); MEAN CORPUSCULAR HEMOGLOBIN 31.1 pg (27.0-33.0); MEAN CORPUSCULAR HGB CONC 31.9 g/dl (32.0-36.5); MEAN CORPUSCULAR VOLUME 97.2 fl (80.0-96.0); PLATELET COUNT, AUTOMATED 144 10^3/uL (150-450); RED BLOOD COUNT 3.96 10^6/uL (4.00-5.40); WHITE BLOOD COUNT 8.2 10^3/uL (4.0-10.0)
[2022-03-21 06:40] LABS: ALBUMIN 2.6 G/DL (3.2-5.2); ALKALINE PHOSPHATASE 68 U/L (46-116); ALT/SGPT 18 U/L (7.0-40); AST/SGOT 17 U/L (<34); BILIRUBIN,TOTAL 0.9 MG/DL (0.3-1.2); BLOOD UREA NITROGEN 12 MG/DL (9-23); CALCIUM LEVEL 8.2 MG/DL (8.5-10.1); CARBON DIOXIDE LEVEL 22 MMOL/L (20-31); CHLORIDE LEVEL 103 MMOL/L (98-107); CREATININE FOR GFR 0.62 MG/DL (0.55-1.30); GLOMERULAR FILTRATION RATE > 60.0 (>51); GLUCOSE, FASTING 133 MG/DL (60-100); POTASSIUM SERUM 3.5 MMOL/L (3.5-5.1); SODIUM LEVEL 137 MMOL/L (136-145); TOTAL PROTEIN 5.5 G/DL (5.7-8.2)
[2022-03-21] MEDS: INSULIN LISPRO (NovoLOG) PER UNIT SC SCH ×6 (08:25→22:28)
[2022-03-21] MEDS: AZITHROMYCIN 250MG TABLET PO SCH (08:26)
[2022-03-21] MEDS: CHLORHEXIDINE GLUCONATE 0.12 % 15ML UDC (PERIDEX ORAL RINSE) SSP SCH (08:26)
[2022-03-21] MEDS: SUCRALFATE 1 GM TAB PO SCH ×4 (08:27→22:26)
[2022-03-21] MEDS: MULTIVITAMINS/MINERALS THERAP 1 TAB PO SCH (08:27)
[2022-03-21] MEDS: DULoxetine 30MG CAPSULE (CYMBALTA) PO SCH (08:27)
[2022-03-21] MEDS: PANTOPRAZOLE 40MG TAB (PROTONIX) PO SCH ×2 (08:27→22:27)
[2022-03-21] MEDS: PREGABALIN 100 MG CAP (LYRICA) PO SCH ×2 (08:27→17:12)
[2022-03-21] MEDS: ROSUVASTATIN 10 MG TAB (CRESTOR) PO SCH (08:27)
[2022-03-21] MEDS: ENOXAPARIN 40MG/0.4ML SYRINGE (J1650 PER 10MG) SC SCH (08:27)
[2022-03-21] MEDS: OSELTAMIVIR PHOSPHATE 75 MG CAP (TAMIFLU) PO SCH ×2 (08:27→22:27)
[2022-03-21] MEDS: CETIRIZINE (ZyrTEC) 10 MG TAB PO SCH (08:28)
[2022-03-21] MEDS: lisinopriL 5 MG TAB PO SCH (08:33)
[2022-03-21] MEDS: guaiFENesin DM LIQ 10ML UD PO SCH ×2 (08:35→22:27)
[2022-03-21 10:54] LABS: HEMOGLOBIN A1c 7.4 % (4.0-6.0)
[2022-03-21] MEDS: AUGMENTIN 875 MG TAB PO SCH ×2 (13:20→22:26)
[2022-03-21] MEDS: oxyBUTYnin 5 MG TAB PO SCH (22:26)
[2022-03-21] MEDS: BACLOFEN 10 MG TAB PO SCH (22:26)
[2022-03-21] MEDS: QUEtiapine FUMARATE 50MG TAB PO SCH (22:27)
[2022-03-21] MEDS: PREGABALIN 75 MG CAP(LYRICA) PO SCH (22:27)
[2022-03-21] MEDS: LEVEMIR (INSULIN DETEMIR) 1 UNITS/0.01ML SC SCH (22:28)
[2022-03-21] MEDS: FLUTICASONE PROP 0.05% NASAL SPRAY 16 GM (FLONASE) SCH (22:29)
[2022-03-21] MEDS: METOPROLOL SUCC *XL* 25MG TAB (TopROL *XL*) PO SCH (22:29)
[2022-03-22 02:00] VITALS: BP 103/70
[2022-03-22] MEDS: IPRATROPIUM 0.5MG/ALBUTEROL 2.5MG INH SOL UD 3ML (DUONEB) INH SCH ×2 (02:00→08:00)
[2022-03-22 03:45] VITALS: O2SAT 94
[2022-03-22 05:14] VITALS: BP 113/56
[2022-03-22 06:55] LABS: HEMATOCRIT 36.2 % (36.0-47.0); HEMOGLOBIN 11.8 g/dl (12.0-15.5); MEAN CORPUSCULAR HEMOGLOBIN 31.2 pg (27.0-33.0); MEAN CORPUSCULAR HGB CONC 32.6 g/dl (32.0-36.5); MEAN CORPUSCULAR VOLUME 95.8 fl (80.0-96.0); PLATELET COUNT, AUTOMATED 154 10^3/uL (150-450); RED BLOOD COUNT 3.78 10^6/uL (4.00-5.40); WHITE BLOOD COUNT 3.9 10^3/uL (4.0-10.0)
[2022-03-22 07:07] LABS: ALBUMIN 2.6 G/DL (3.2-5.2); ALKALINE PHOSPHATASE 67 U/L (46-116); ALT/SGPT 16 U/L (7.0-40); AST/SGOT 15 U/L (<34); BILIRUBIN,TOTAL 0.9 MG/DL (0.3-1.2); BLOOD UREA NITROGEN 10 MG/DL (9-23); CALCIUM LEVEL 8.8 MG/DL (8.5-10.1); CARBON DIOXIDE LEVEL 26 MMOL/L (20-31); CHLORIDE LEVEL 104 MMOL/L (98-107); CREATININE FOR GFR 0.57 MG/DL (0.55-1.30); GLOMERULAR FILTRATION RATE > 60.0 (>51); GLUCOSE, FASTING 148 MG/DL (60-100); POTASSIUM SERUM 3.2 MMOL/L (3.5-5.1); SODIUM LEVEL 140 MMOL/L (136-145); TOTAL PROTEIN 5.6 G/DL (5.7-8.2)
[2022-03-22] MEDS: SUCRALFATE 1 GM TAB PO SCH (07:30)
[2022-03-22] MEDS: ALBUTEROL 90 MCG/ACT 8GM HFA INHALER INH PRN (07:54)
[2022-03-22 09:00] VITALS: O2SAT 96
[2022-03-22] MEDS: ENOXAPARIN 40MG/0.4ML SYRINGE (J1650 PER 10MG) SC SCH (09:00)
[2022-03-22] MEDS ORDERED: POTASSIUM CHLORIDE 10MEQ SR TABLET PO SCH (09:00)
[2022-03-22] MEDS ORDERED: AMOX875T2 PO ×2 (09:47→10:33)
[2022-03-22 10:00] VITALS: BP 117/63
[2022-03-22] MEDS: CHLORHEXIDINE GLUCONATE 0.12 % 15ML UDC (PERIDEX ORAL RINSE) SSP SCH (10:05)
[2022-03-22] MEDS: INSULIN LISPRO (NovoLOG) PER UNIT SC SCH ×2 (10:06)
[2022-03-22] MEDS: guaiFENesin DM LIQ 10ML UD PO SCH (10:06)
[2022-03-22] MEDS: OSELTAMIVIR PHOSPHATE 75 MG CAP (TAMIFLU) PO SCH (10:07)
[2022-03-22] MEDS: ROSUVASTATIN 10 MG TAB (CRESTOR) PO SCH (10:07)
[2022-03-22] MEDS: DULoxetine 30MG CAPSULE (CYMBALTA) PO SCH (10:07)
[2022-03-22] MEDS: MULTIVITAMINS/MINERALS THERAP 1 TAB PO SCH (10:08)
[2022-03-22] MEDS: oxyCODONE 5MG TAB PO PRN (10:08)
[2022-03-22] MEDS: AUGMENTIN 875 MG TAB PO SCH (10:08)
[2022-03-22] MEDS: PANTOPRAZOLE 40MG TAB (PROTONIX) PO SCH (10:08)
[2022-03-22] MEDS: PREGABALIN 100 MG CAP (LYRICA) PO SCH (10:08)
[2022-03-22] MEDS: AZITHROMYCIN 250MG TABLET PO SCH (10:08)
[2022-03-22 10:09] VITALS: BP 117/63
[2022-03-22] MEDS: lisinopriL 5 MG TAB PO SCH (10:09)
[2022-03-22] MEDS: CETIRIZINE (ZyrTEC) 10 MG TAB PO SCH (10:09)
[2022-03-25 15:09] LABS: BODY FLUID CULTURE Not indicated. (.); LEGIONELLA ANTIGEN URINE Negative (Negative); ORGANISM ID Not indicated. (.); SPECIMEN SOURCE Urine (.); URINE STREP PNEUMONIAE ANTIGEN Negative (Negative)
== END 2022-03-22 12:38 | disposition home or self-care (01) ==
LOC: M ED 09:31 → M ED INP 14:32 → ENRESERV 17:14 → M MSPAV 18:00
PROVIDERS: ADMIT Student in an Organized Health Care Education/Training Program; ATTEND Family Medicine
DX: J96.01 Acute respiratory failure with hypoxia (principal); J09.X1 Influenza due to identified novel influenza A virus with pneumonia; E11.9 Type 2 diabetes mellitus without complications; J69.0 Pneumonitis due to inhalation of food and vomit; F41.9 Anxiety disorder, unspecified; K21.9 Gastro-esophageal reflux disease without esophagitis; E78.5 Hyperlipidemia, unspecified; G47.33 Obstructive sleep apnea (adult) (pediatric); M32.9 Systemic lupus erythematosus, unspecified; G89.29 Other chronic pain; Z86.14 Personal history of Methicillin resistant Staphylococcus aureus infection; N32.81 Overactive bladder; F32.A Depression, unspecified; M79.7 Fibromyalgia; Z79.899 Other long term (current) drug therapy; Z79.4 Long term (current) use of insulin; Z79.84 Long term (current) use of oral hypoglycemic drugs; Z79.891 Long term (current) use of opiate analgesic; Z88.8 Allergy status to other drugs, medicaments and biological substances; Z91.018 Allergy to other foods
CPT/HCPCS: 36415; 36600; 71045; 80048; 80053; 80076; 82803; 83036; 83605; 84145; 84443; 85025; 85027; 87040; 87449; 87486; 87581; 87633; 87798; 87899; 93005; 93041; 94640; 94760; 96365; 96372; 97165; 99285; J0696; J1650

== ENCOUNTER 2022-06-17 16:20 | Inpatient (IN) | payer OTHER ==
[~2022-06-17] VITALS: Ht 162.6 cm; Wt 107.5 kg
[~2022-06-17 16:20] MED LIST changes: +AMOX875T2 PO; +BENZ-18 PO; +IPRA3SP INH; +ONDA4TAB6 PO; +PERI12LIQ PO; +PROA1AER2 INH
[2022-06-17] MEDS ORDERED: ACETAMINOPHEN 325 MG TAB PO ONE (19:10)
[2022-06-17 19:46] LABS: HEMATOCRIT 44.8 % (36.0-47.0); HEMOGLOBIN 14.8 g/dl (12.0-15.5); MEAN CORPUSCULAR HEMOGLOBIN 31.5 pg (27.0-33.0); MEAN CORPUSCULAR VOLUME 95.3 fl (80.0-96.0); WHITE BLOOD COUNT 14.4 10^3/uL (4.0-10.0)
[2022-06-17 19:47] LABS: BASO # 0.1 10^3/uL (0.0-0.2); BASO % 0.3 % (0.0-1.0); EOS % 0.1 % (0.0-3.0); LYMPH # 2.1 10^3/uL (1.5-5.0); LYMPH % 14.3 % (24.0-44.0); MONO # 1.1 10^3/uL (0.0-0.8); MONO % 7.7 % (2.0-8.0); NEUTROPHILS # 11.1 10^3/uL (1.5-8.5); NEUTROPHILS % 77.3 % (36.0-66.0); PLATELET COUNT, AUTOMATED 249 10^3/uL (150-450)
[2022-06-17 20:20] LABS: ALBUMIN 3.4 G/DL (3.2-5.2); ALKALINE PHOSPHATASE 98 U/L (46-116); ALT/SGPT 73 U/L (7.0-40); AST/SGOT 61 U/L (<34); BILIRUBIN,DIRECT 0.9 MG/DL (<0.4); BILIRUBIN,TOTAL 2.7 MG/DL (0.3-1.2); BLOOD UREA NITROGEN 17 MG/DL (9-23); CARBON DIOXIDE LEVEL 24 MMOL/L (20-31); CHLORIDE LEVEL 104 MMOL/L (98-107); GLOMERULAR FILTRATION RATE > 60.0 (>51); GLUCOSE, FASTING 186 MG/DL (60-100); POTASSIUM SERUM 4.1 MMOL/L (3.5-5.1); SODIUM LEVEL 136 MMOL/L (136-145); THYROID STIMULATING HORMONE 0.479 uIU/ML (0.55-4.78); THYROXINE (T4) 5.8 UG/DL (4.5-10.9); TOTAL PROTEIN 6.6 G/DL (5.7-8.2)
[2022-06-17] MEDS ORDERED: PIPERACILLIN/TAZOBACTAM SOD 4.5 GM in D5W MINI-BAG PLUS 50 ML IV ONE (20:45)
[2022-06-17] MEDS ORDERED: NS 1,000 ML IV ONE (20:55)
[2022-06-17 21:17] LABS: ABG BASE EXCESS -1.4 (-2.0-2.0); ABG HCO3 22.6 MEQ/L (22.0-26.0); ABG PARTIAL PRESSURE CO2 35.9 mmHg (35.0-45.0); ABG PARTIAL PRESSURE O2 84.2 mmHg (75.0-100.0); ABG STANDARD HCO3 23.3 MEQ/L (22.0-26.0); ABG TOTAL CO2 23.7 MEQ/L (22.0-29.0); ABG pH (ARTERIAL) 7.417 UNITS (7.350-7.450)
[2022-06-17] MEDS ORDERED: FLUID PLACE HOLDER IV SCH (22:35)
[2022-06-17] MEDS ORDERED: ONDANSETRON 4MG ORAL DISINTEGRATING TAB PO PRN (22:35)
[2022-06-17] MEDS ORDERED: QUEtiapine FUMARATE 25 MG TAB PO PRN (22:35)
[2022-06-17] MEDS ORDERED: GLUCOSE 4GM CHEW TABLET PO PRN (22:35)
[2022-06-17] MEDS ORDERED: busPIRone 5 MG TAB PO PRN (22:35)
[2022-06-17] MEDS ORDERED: VANCOMYCIN HCL IV SCH (22:35)
[2022-06-17] MEDS ORDERED: DEXTROSE 50% 50ML SYRINGE IV PRN (22:35)
[2022-06-17] MEDS ORDERED: GLUCAGON INJ 1MG VIAL SC PRN (22:35)
[2022-06-17] MEDS ORDERED: ACETAMINOPHEN TAB 650MG DOSE (2X325MG) PO PRN (22:35)
[2022-06-17] MEDS ORDERED: HOME MED LIST COMPLETE! XX SCH (22:40)
[2022-06-17] MEDS ORDERED: BACL10TA2 PO (22:40)
[2022-06-17] MEDS ORDERED: ALBU8.5H INH (22:40)
[2022-06-17] MEDS ORDERED: MULTTAB20 PO (22:40)
[2022-06-17] MEDS ORDERED: AZITHROMYCIN INJ 500 MG, VIAL MATE ADAPTER 1 EACH in D5W 250 ML IV SCH (23:00)
[2022-06-17] MEDS: PREGABALIN 75 MG CAP(LYRICA) PO SCH (23:37)
[2022-06-17] MEDS: METOPROLOL SUCC *XL* 25MG TAB (TopROL *XL*) PO SCH (23:38)
[2022-06-17] MEDS: BACLOFEN 10 MG TAB PO SCH (23:38)
[2022-06-17] MEDS: PANTOPRAZOLE 40MG TAB (PROTONIX) PO SCH (23:38)
[2022-06-17] MEDS: oxyCODONE 5MG TAB PO PRN (23:39)
[2022-06-17] MEDS: LEVEMIR (INSULIN DETEMIR) 1 UNITS/0.01ML SC SCH (23:40)
[2022-06-18] VITALS (12 sets, daily range): BP systolic 100–127; BP diastolic 54–63; O2SAT 90–95
[2022-06-18] MEDS: QUEtiapine FUMARATE 50MG TAB PO SCH ×2 (00:38→22:30)
[2022-06-18] MEDS ORDERED: VANCOMYCIN HCL 1,000 MG, VIAL MATE ADAPTER 1 EACH in NS 250 ML IV ONE ×2 (01:00→02:00)
[2022-06-18] MEDS: FLUTICASONE PROP 0.05% NASAL SPRAY 16 GM (FLONASE) SCH ×2 (01:01→22:30)
[2022-06-18] MEDS: ALBUTEROL SULFATE 2.5MG/0.5ML INH NEB SOLN INH SCH ×4 (01:09→20:00)
[2022-06-18] MEDS: oxyBUTYnin 5 MG TAB PO SCH ×2 (02:43→22:30)
[2022-06-18] MEDS: PIPERACILLIN/TAZOBACTAM SOD 4.5 GM in D5W MINI-BAG PLUS 50 ML IV SCH ×2 (04:27→09:24)
[2022-06-18 05:42] LABS: ALBUMIN 2.6 G/DL (3.2-5.2); ALKALINE PHOSPHATASE 75 U/L (46-116); ALT/SGPT 49 U/L (7.0-40); AST/SGOT 36 U/L (<34); BILIRUBIN,TOTAL 2.5 MG/DL (0.3-1.2); BLOOD UREA NITROGEN 14 MG/DL (9-23); CALCIUM LEVEL 8.3 MG/DL (8.5-10.1); CARBON DIOXIDE LEVEL 26 MMOL/L (20-31); CHLORIDE LEVEL 108 MMOL/L (98-107); GLOMERULAR FILTRATION RATE > 60.0 (>51); GLUCOSE, FASTING 159 MG/DL (60-100); POTASSIUM SERUM 3.9 MMOL/L (3.5-5.1); SODIUM LEVEL 142 MMOL/L (136-145); TOTAL PROTEIN 5.3 G/DL (5.7-8.2)
[2022-06-18] MEDS: HEPARIN SOD (PORCINE) 5000UNITS/ML 1ML VIAL/SYRINGE SC SCH ×3 (05:51→20:41)
[2022-06-18] MEDS: oxyCODONE 5MG TAB PO PRN ×3 (06:00→18:29)
[2022-06-18] MEDS ORDERED: ISOVUE-370 76% 100ML VIAL As Ordered ONE (08:16)
[2022-06-18] MEDS ORDERED: VANCOMYCIN HCL 1,000 MG, VIAL MATE ADAPTER 1 EACH in D5W 250 ML IV SCH (09:00)
[2022-06-18] MEDS: PREGABALIN 100 MG CAP (LYRICA) PO SCH ×2 (09:23→17:14)
[2022-06-18] MEDS: ROSUVASTATIN 10 MG TAB (CRESTOR) PO SCH (09:24)
[2022-06-18] MEDS: DULoxetine 30MG CAPSULE (CYMBALTA) PO SCH (09:24)
[2022-06-18] MEDS: BACLOFEN 10 MG TAB PO SCH ×2 (09:24→22:29)
[2022-06-18] MEDS: PANTOPRAZOLE 40MG TAB (PROTONIX) PO SCH ×2 (09:24→22:30)
[2022-06-18] MEDS: INSULIN LISPRO (NovoLOG) PER UNIT SC SCH ×3 (09:25→17:14)
[2022-06-18] MEDS ORDERED: VARIBAR NECTAR 40% w/v 240ML SUSP BTL As Ordered ONE (09:28)
[2022-06-18] MEDS ORDERED: VARIBAR PUDDING 40% w/v 230ML TUBE As Ordered ONE (09:28)
[2022-06-18] MEDS ORDERED: E-Z-PAQUE 96% w/w SUSP 176GM BTL As Ordered ONE (09:28)
[2022-06-18] MEDS ORDERED: BARIUM SULFATE 700 MG TABLET (E-Z-DISK) As Ordered ONE (09:29)
[2022-06-18] MEDS ORDERED: AMPICILLIN SOD/SULBACTAM SOD 1.5 GM in D5W MINI-BAG PLUS 50 ML IV SCH (11:20)
[2022-06-18] MEDS ORDERED: methylPREDNISolone 125MG 2ML VIAL IV ONE (13:05)
[2022-06-18] MEDS ORDERED: AMPICILLIN SOD/SULBACTAM SOD 3 GM in D5W MINI-BAG PLUS 100 ML IV ONE (15:00)
[2022-06-18] MEDS ORDERED: AMPICILLIN SOD/SULBACTAM SOD 3 GM in D5W MINI-BAG PLUS 100 ML IV SCH (15:00)
[2022-06-18] MEDS ORDERED: AZITHROMYCIN 250MG TABLET PO SCH (18:00)
[2022-06-18] MEDS: LEVEMIR (INSULIN DETEMIR) 1 UNITS/0.01ML SC SCH (20:38)
[2022-06-18] MEDS: AUGMENTIN 875 MG TAB PO SCH (20:39)
[2022-06-18] MEDS: METOPROLOL SUCC *XL* 25MG TAB (TopROL *XL*) PO SCH (20:42)
[2022-06-18] MEDS ORDERED: INSULIN LISPRO (NovoLOG) PER UNIT SC SCH (21:00)
[2022-06-18] MEDS ORDERED: SUCRALFATE 1 GM TAB PO SCH (21:00)
[2022-06-18] MEDS: PREGABALIN 75 MG CAP(LYRICA) PO SCH (22:29)
[2022-06-18] MEDS: SUCRALFATE 1 GM TAB PO SCH (23:42)
[2022-06-19] VITALS: BP 114/60
[2022-06-19] MEDS: ALBUTEROL SULFATE 2.5MG/0.5ML INH NEB SOLN INH SCH ×2 (01:14→08:00)
[2022-06-19 04:00] VITALS: BP 110/59
[2022-06-19 05:45] LABS: BASO % 0.1 % (0.0-1.0); LYMPH # 1.7 10^3/uL (1.5-5.0); MEAN CORPUSCULAR HEMOGLOBIN 32.5 pg (27.0-33.0); MEAN CORPUSCULAR HGB CONC 33.4 g/dl (32.0-36.5); MEAN CORPUSCULAR VOLUME 97.2 fl (80.0-96.0); MONO # 0.7 10^3/uL (0.0-0.8); MONO % 6.5 % (2.0-8.0); NEUTROPHILS # 7.6 10^3/uL (1.5-8.5); NEUTROPHILS % 75.8 % (36.0-66.0); PLATELET COUNT, AUTOMATED 195 10^3/uL (150-450); RED BLOOD COUNT 3.91 10^6/uL (4.00-5.40); WHITE BLOOD COUNT 10.1 10^3/uL (4.0-10.0)
[2022-06-19] MEDS: HEPARIN SOD (PORCINE) 5000UNITS/ML 1ML VIAL/SYRINGE SC SCH (05:52)
[2022-06-19 06:07] LABS: BLOOD UREA NITROGEN 14 MG/DL (9-23); CALCIUM LEVEL 8.9 MG/DL (8.5-10.1); CARBON DIOXIDE LEVEL 26 MMOL/L (20-31); CHLORIDE LEVEL 108 MMOL/L (98-107); GLOMERULAR FILTRATION RATE > 60.0 (>51); GLUCOSE, FASTING 162 MG/DL (60-100); SODIUM LEVEL 143 MMOL/L (136-145)
[2022-06-19 06:16] LABS: HEMOGLOBIN 12.7 g/dl (12.0-15.5)
[2022-06-19] MEDS: SUCRALFATE 1 GM TAB PO SCH (07:30)
[2022-06-19 08:45] VITALS: BP 117/67
[2022-06-19] MEDS: DULoxetine 30MG CAPSULE (CYMBALTA) PO SCH (08:47)
[2022-06-19] MEDS: PANTOPRAZOLE 40MG TAB (PROTONIX) PO SCH (08:47)
[2022-06-19] MEDS: ROSUVASTATIN 10 MG TAB (CRESTOR) PO SCH (08:47)
[2022-06-19] MEDS: AUGMENTIN 875 MG TAB PO SCH (08:47)
[2022-06-19] MEDS: oxyCODONE 5MG TAB PO PRN (08:48)
[2022-06-19] MEDS: BACLOFEN 10 MG TAB PO SCH (08:48)
[2022-06-19 08:49] VITALS: BP 117/67
[2022-06-19] MEDS: INSULIN LISPRO (NovoLOG) PER UNIT SC SCH (08:49)
[2022-06-19] MEDS: PREGABALIN 100 MG CAP (LYRICA) PO SCH (08:49)
[2022-06-19] MEDS ORDERED: PRED10TA2 PO (08:57)
[2022-06-19] MEDS ORDERED: AMOX875T2 PO (08:57)
[2022-06-19] MEDS ORDERED: CETIRIZINE (ZyrTEC) 10 MG TAB PO SCH (09:00)
[2022-06-19] MEDS ORDERED: predniSONE 20 MG TAB PO SCH (09:00)
[2022-06-19] MEDS ORDERED: lisinopriL 5 MG TAB PO SCH (09:00)
== END 2022-06-19 12:36 | disposition home or self-care (01) | DRG 194 ==
LOC: M ED 16:20 → M ED INP 22:31 → M PCU 23:54
PROVIDERS: ADMIT Internal Medicine; ATTEND Student in an Organized Health Care Education/Training Program
DX: J18.9 Pneumonia, unspecified organism (principal); F11.20 Opioid dependence, uncomplicated; M32.9 Systemic lupus erythematosus, unspecified; K21.9 Gastro-esophageal reflux disease without esophagitis; E66.9 Obesity, unspecified; K76.0 Fatty (change of) liver, not elsewhere classified; G89.29 Other chronic pain; R74.01 Elevation of levels of liver transaminase levels; N32.81 Overactive bladder; M54.9 Dorsalgia, unspecified; F41.9 Anxiety disorder, unspecified; I10 Essential (primary) hypertension; E11.9 Type 2 diabetes mellitus without complications; J45.909 Unspecified asthma, uncomplicated; Z79.4 Long term (current) use of insulin; Z79.899 Other long term (current) drug therapy; Z88.5 Allergy status to narcotic agent; Z88.4 Allergy status to anesthetic agent; Z88.8 Allergy status to other drugs, medicaments and biological substances; Z91.018 Allergy to other foods; Z86.16 Personal history of COVID-19

== ENCOUNTER → 2022-10-29 | Outpatient (CLI) | payer OTHER ==
[~2022-10-29] MED LIST changes: +ALBU8.5H INH; +DICY-61; -DICY10CA13; +E-Z-GAS II EFFERVESCENT PACKET (SODIUM BICARB./CITRIC ACID/SIMETHICONE) As Ordered ONE; +E-Z-HD 98% w/w 340GM SUSP BTL As Ordered ONE; +E-Z-PAQUE 96% w/w SUSP 176GM BTL As Ordered ONE; -HYDR200T3; +HYDR200T46; +MULTTAB20 PO; +PRED10TA2 PO
== END ==
LOC: M RAD 09:41
PROVIDERS: ATTEND Surgery
DX: K21.9 Gastro-esophageal reflux disease without esophagitis (principal)

== ENCOUNTER → 2022-12-25 | Outpatient (CLI) | payer OTHER ==
[~2022-12-25] MED LIST changes: -CELE1CAP7 PO; +CELE1CAP8 PO; -E-Z-GAS II EFFERVESCENT PACKET (SODIUM BICARB./CITRIC ACID/SIMETHICONE) As Ordered ONE; -E-Z-HD 98% w/w 340GM SUSP BTL As Ordered ONE; -E-Z-PAQUE 96% w/w SUSP 176GM BTL As Ordered ONE
== END ==
LOC: M RAD 12:59
PROVIDERS: ATTEND Internal Medicine Pulmonary Disease
DX: Z87.01 Personal history of pneumonia (recurrent) (principal); K44.9 Diaphragmatic hernia without obstruction or gangrene

== ENCOUNTER 2023-03-16 11:42 | Emergency (ER) | payer OTHER ==
[~2023-03-16] VITALS: Ht 162.6 cm; Wt 106.1 kg
[~2023-03-16 11:42] MED LIST changes: -CEFD300C41 PO; +CEFD300C42 PO; -CELE1CAP8 PO; +CELE1CAP99 PO; -OXYB5TAB10 PO; +OXYB5TAB11 PO
[2023-03-16] MEDS ORDERED: IBUPROFEN 600MG TAB PO ONE (13:30)
[2023-03-16] MEDS ORDERED: ALBUTEROL SULFATE 2.5MG/0.5ML INH NEB SOLN NEB ONE (16:45)
[2023-03-16] MEDS ORDERED: NS 500 ML IV ONE (16:45)
[2023-03-16] MEDS ORDERED: AMPICILLIN SOD/SULBACTAM SOD 3 GM in D5W MINI-BAG PLUS 100 ML IV ONE (16:45)
[2023-03-16 17:46] LABS: BASO % 0.3 % (0.0-1.0); EOS # 0.1 10^3/uL (0.0-0.5); EOS % 0.9 % (0.0-3.0); HEMATOCRIT 38.8 % (36.0-47.0); HEMOGLOBIN 12.8 g/dl (12.0-15.5); LYMPH # 3.3 10^3/uL (1.5-5.0); LYMPH % 25.8 % (24.0-44.0); MEAN CORPUSCULAR HEMOGLOBIN 32.7 pg (27.0-33.0); MONO # 0.7 10^3/uL (0.0-0.8); MONO % 5.3 % (2.0-8.0); NEUTROPHILS # 8.6 10^3/uL (1.5-8.5); NEUTROPHILS % 67.5 % (36.0-66.0); PLATELET COUNT, AUTOMATED 220 10^3/uL (150-450); RED BLOOD COUNT 3.92 10^6/uL (4.00-5.40); WHITE BLOOD COUNT 12.8 10^3/uL (4.0-10.0)
[2023-03-16 18:13] LABS: BLOOD UREA NITROGEN 17 MG/DL (9-23); CALCIUM LEVEL 8.1 MG/DL (8.5-10.1); CARBON DIOXIDE LEVEL 25 MMOL/L (20-31); CHLORIDE LEVEL 104 MMOL/L (98-107); CREATININE FOR GFR 0.67 MG/DL (0.55-1.30); GLOMERULAR FILTRATION RATE > 60.0 (>51); GLUCOSE, FASTING 215 MG/DL (60-100); POTASSIUM SERUM 4.2 MMOL/L (3.5-5.1); SODIUM LEVEL 140 MMOL/L (136-145)
[2023-03-16] MEDS ORDERED: NS 1,000 ML IV ONE (18:20)
[2023-03-16 20:27] VITALS: BP 105/65; TEMP 97.5; O2SAT 98
[2023-03-16] MEDS ORDERED: DOXY-443 PO (20:55)
[2023-03-16] MEDS ORDERED: AMOX875T2 PO (20:55)
== END 2023-03-16 21:03 | disposition home or self-care (01) ==
LOC: M ED 11:42
DX: J18.9 Pneumonia, unspecified organism (principal); I10 Essential (primary) hypertension; E78.5 Hyperlipidemia, unspecified; E11.9 Type 2 diabetes mellitus without complications; Z87.01 Personal history of pneumonia (recurrent); Z79.4 Long term (current) use of insulin; Z79.899 Other long term (current) drug therapy; Z88.8 Allergy status to other drugs, medicaments and biological substances; Z91.018 Allergy to other foods
CPT/HCPCS: 71046; 80048; 83605; 85025; 87040; 87486; 87581; 87633; 87798; 94640; 99284; J0295

== ENCOUNTER 2024-01-12 10:35 | Inpatient (IN) | payer OTHER ==
[~2024-01-12] VITALS: Ht 162.6 cm; Wt 113.5 kg
[~2024-01-12 10:35] MED LIST changes: +CEFD1CAP9 PO; -CEFD300C42 PO; +DOXY-323 PO; +DOXY-440 PO; -DOXY-444 PO; -LEFL1TAB4 PO; +LEFL20TA15 PO; +ONDA-282 PO; +ONDA-282 SL; -ONDA4TAB6 PO; -ONDA4TAB6 SL; -OXYB5TAB11 PO; +OXYB5TAB14 PO; -ROSU10TA6 PO; +ROSU10TA61 PO
[2024-01-12] MEDS ORDERED: ISOVUE-370 76% 100ML VIAL As Ordered ONE (12:21)
[2024-01-12 12:27] LABS: BASO # 0.1 10^3/uL (0.0-0.2); BASO % 0.3 % (0.0-1.0); EOS % 0.2 % (0.0-3.0); HEMATOCRIT 41.3 % (36.0-47.0); HEMOGLOBIN 13.9 g/dl (12.0-15.5); LYMPH # 1.6 10^3/uL (1.5-5.0); LYMPH % 8.4 % (24.0-44.0); MEAN CORPUSCULAR HEMOGLOBIN 32.6 pg (27.0-33.0); MEAN CORPUSCULAR HGB CONC 33.7 g/dl (32.0-36.5); MEAN CORPUSCULAR VOLUME 96.9 fl (80.0-96.0); MONO # 1.1 10^3/uL (0.0-0.8); NEUTROPHILS # 15.7 10^3/uL (1.5-8.5); NEUTROPHILS % 84.2 % (36.0-66.0); PLATELET COUNT, AUTOMATED 257 10^3/uL (150-450); RED BLOOD COUNT 4.26 10^6/uL (4.00-5.40); WHITE BLOOD COUNT 18.6 10^3/uL (4.0-10.0)
[2024-01-12 12:54] LABS: ALBUMIN 3.3 G/DL (3.2-5.2); ALKALINE PHOSPHATASE 94 U/L (46-116); ALT/SGPT 15 U/L (7.0-40); AST/SGOT 22 U/L (<34); BILIRUBIN,DIRECT 0.7 MG/DL (<0.4); BILIRUBIN,TOTAL 2.4 MG/DL (0.3-1.2); BLOOD UREA NITROGEN 16 MG/DL (9-23); CALCIUM LEVEL 8.5 MG/DL (8.5-10.1); CARBON DIOXIDE LEVEL 21 MMOL/L (20-31); CHLORIDE LEVEL 105 MMOL/L (98-107); CK-MB VALUE MASS < 1.0 NG/ML (<3.6); CREATININE FOR GFR 0.72 MG/DL (0.55-1.30); GLOMERULAR FILTRATION RATE > 60.0 (>51); GLUCOSE, FASTING 232 MG/DL (60-100); POTASSIUM SERUM 4.4 MMOL/L (3.5-5.1); SODIUM LEVEL 134 MMOL/L (136-145); THYROID STIMULATING HORMONE 0.665 uIU/ML (0.55-4.78); THYROXINE (T4) 5.3 UG/DL (4.5-10.9); TOTAL PROTEIN 6.6 G/DL (5.7-8.2)
[2024-01-12 13:05] LABS: PROCALCITONIN 0.68 ng/ml
[2024-01-12 13:11] LABS: CPK CREATINE PHOSPHOKINASE 42 U/L (34-145); MB/CK RELATIVE INDEX 2.38 (< OR =4)
[2024-01-12] MEDS: NS 500 ML IV ONE (13:54)
[2024-01-12] MEDS ORDERED: IPRATROPIUM 0.5MG/ALBUTEROL 2.5MG INH SOL UD 3ML (DUONEB) NEB PRN (15:25)
[2024-01-12] MEDS ORDERED: **NOTE PATIENT COMMENT** MISC XX SCH (15:25)
[2024-01-12] MEDS ORDERED: RIZA10TA58 PO (16:58)
[2024-01-12] MEDS ORDERED: POLY510P14 PO (16:58)
[2024-01-12] MEDS ORDERED: DIAZ2TAB PO (16:58)
[2024-01-12] MEDS ORDERED: HOME MED LIST COMPLETE! XX SCH (17:00)
[2024-01-12] MEDS: PIPERACILLIN/TAZOBACTAM SOD 4.5 GM in D5W MINI-BAG PLUS 50 ML IV ONE (17:26)
[2024-01-12] MEDS: NS 1,000 ML IV SCH ×2 (17:26→17:35)
[2024-01-12] MEDS ORDERED: GLUCAGON INJ 1MG VIAL SC PRN (17:35)
[2024-01-12] MEDS ORDERED: diazePAM 5MG TABLET PO PRN (17:35)
[2024-01-12] MEDS ORDERED: QUEtiapine FUMARATE 25 MG TAB PO PRN (17:35)
[2024-01-12] MEDS ORDERED: DEXTROSE 50% 50ML SYRINGE IV PRN (17:35)
[2024-01-12] MEDS ORDERED: GLUCOSE 4 GM CHEW PO PRN (17:35)
[2024-01-12] MEDS ORDERED: busPIRone 5 MG TAB PO PRN (17:35)
[2024-01-12] MEDS ORDERED: ONDANSETRON 4MG ORAL DISINTEGRATING TAB PO PRN (17:35)
[2024-01-12] MEDS: oxyCODONE 5MG TAB PO PRN (18:28)
[2024-01-12] MEDS: methylPREDNISolone 40MG 1ML VIAL IV SCH (18:29)
[2024-01-12] MEDS: IPRATROPIUM 0.5MG/ALBUTEROL 2.5MG INH SOL UD 3ML (DUONEB) NEB SCH (19:26)
[2024-01-12 21:18] VITALS: BP 115/59; TEMP 97.8
[2024-01-12] MEDS: oxyBUTYnin 5 MG TAB PO SCH (21:55)
[2024-01-12] MEDS: PANTOPRAZOLE 40MG TAB (PROTONIX) PO SCH (21:56)
[2024-01-12] MEDS: BACLOFEN 10 MG TAB PO SCH ×2 (21:56)
[2024-01-12] MEDS: METOPROLOL SUCC *XL* 25MG TAB (TopROL *XL*) PO SCH (21:57)
[2024-01-12] MEDS: DOXYCYCLINE HYCLATE 100 MG in D5W MINI-BAG PLUS 100 ML IV SCH (21:58)
[2024-01-12] MEDS: INSULIN LISPRO (NovoLOG) PER UNIT SC SCH (21:58)
[2024-01-12] MEDS: ENOXAPARIN 40MG/0.4ML SYRINGE (J1650 PER 10MG) SC SCH (21:58)
[2024-01-12] MEDS: PREGABALIN 75 MG CAP(LYRICA) PO SCH (22:05)
[2024-01-12] MEDS: PIPERACILLIN/TAZOBACTAM SOD 4.5 GM in D5W MINI-BAG PLUS 50 ML IV SCH (23:36)
[2024-01-13] VITALS (7 sets, daily range): BP systolic 103–122; BP diastolic 55–72; TEMP 96.3–97.9; O2SAT 93–99
[2024-01-13] MEDS ORDERED: QUET200T2 PO (01:49)
[2024-01-13] MEDS: QUEtiapine FUMARATE 200 MG TAB PO SCH (03:15)
[2024-01-13 07:57] LABS: MEAN CORPUSCULAR HEMOGLOBIN 32.4 pg (27.0-33.0); MEAN CORPUSCULAR HGB CONC 32.8 g/dl (32.0-36.5); MEAN CORPUSCULAR VOLUME 98.9 fl (80.0-96.0); PLATELET COUNT, AUTOMATED 201 10^3/uL (150-450); RED BLOOD COUNT 3.55 10^6/uL (4.00-5.40); WHITE BLOOD COUNT 10.5 10^3/uL (4.0-10.0)
[2024-01-13 08:00] LABS: HEMATOCRIT 35.1 % (36.0-47.0); HEMOGLOBIN 11.5 g/dl (12.0-15.5)
[2024-01-13] MEDS: ROSUVASTATIN 10 MG TAB (CRESTOR) PO SCH (08:11)
[2024-01-13] MEDS: INSULIN LISPRO (NovoLOG) PER UNIT SC SCH (08:12)
[2024-01-13] MEDS: DULoxetine 30MG CAPSULE (CYMBALTA) PO SCH (08:12)
[2024-01-13 08:20] LABS: BLOOD UREA NITROGEN 14 MG/DL (9-23); CALCIUM LEVEL 8.3 MG/DL (8.5-10.1); CARBON DIOXIDE LEVEL 22 MMOL/L (20-31); CHLORIDE LEVEL 113 MMOL/L (98-107); GLOMERULAR FILTRATION RATE > 60.0 (>51); GLUCOSE, FASTING 157 MG/DL (60-100); MAGNESIUM LEVEL 2.2 MG/DL (1.8-2.4); POTASSIUM SERUM 4.2 MMOL/L (3.5-5.1); SODIUM LEVEL 142 MMOL/L (136-145)
[2024-01-13] MEDS ORDERED: ENOXAPARIN 40MG/0.4ML SYRINGE (J1650 PER 10MG) SC SCH (09:00)
[2024-01-13] MEDS ORDERED: DULoxetine 30MG CAPSULE (CYMBALTA) PO SCH (09:00)
[2024-01-13] MEDS: MIRALAX *UNIT DOSE* 17GM PACKET PO SCH (09:00)
[2024-01-13] MEDS ORDERED: VARIBAR PUDDING 40% w/v 230ML TUBE As Ordered ONE (11:52)
[2024-01-13] MEDS ORDERED: E-Z-PAQUE 96% w/w SUSP 176GM BTL As Ordered ONE (11:53)
[2024-01-13] MEDS ORDERED: BARIUM SULFATE 700 MG TABLET (E-Z-DISK) As Ordered ONE (11:53)
[2024-01-13] MEDS ORDERED: VARIBAR NECTAR 40% w/v 240ML SUSP BTL As Ordered ONE (11:53)
[2024-01-13] MEDS: DOXYCYCLINE HYCLATE 100MG TABLET PO SCH (20:26)
[2024-01-14 00:06] VITALS: BP 117/66; TEMP 96.6; O2SAT 92
[2024-01-14 04:00] VITALS: BP 128/54; TEMP 96.8; O2SAT 98
[2024-01-14 06:26] LABS: HEMATOCRIT 35.2 % (36.0-47.0); HEMOGLOBIN 11.3 g/dl (12.0-15.5); MEAN CORPUSCULAR HEMOGLOBIN 31.9 pg (27.0-33.0); MEAN CORPUSCULAR HGB CONC 32.1 g/dl (32.0-36.5); MEAN CORPUSCULAR VOLUME 99.4 fl (80.0-96.0); PLATELET COUNT, AUTOMATED 188 10^3/uL (150-450); RED BLOOD COUNT 3.54 10^6/uL (4.00-5.40); WHITE BLOOD COUNT 7.5 10^3/uL (4.0-10.0)
[2024-01-14 06:51] LABS: BLOOD UREA NITROGEN 15 MG/DL (9-23); CALCIUM LEVEL 8.9 MG/DL (8.5-10.1); CARBON DIOXIDE LEVEL 25 MMOL/L (20-31); CHLORIDE LEVEL 113 MMOL/L (98-107); CREATININE FOR GFR 0.61 MG/DL (0.55-1.30); GLOMERULAR FILTRATION RATE > 60.0 (>51); GLUCOSE, FASTING 210 MG/DL (60-100); POTASSIUM SERUM 4.2 MMOL/L (3.5-5.1); SODIUM LEVEL 143 MMOL/L (136-145)
[2024-01-14 08:56] VITALS: BP 126/75; TEMP 97.8; O2SAT 95
[2024-01-14 12:48] VITALS: BP 141/72; TEMP 97.9; O2SAT 92
[2024-01-14 16:32] VITALS: BP 136/78; TEMP 98.7; O2SAT 95
[2024-01-14 20:01] VITALS: BP 133/86; TEMP 98.6; O2SAT 92
[2024-01-15] VITALS (7 sets, daily range): BP systolic 115–138; BP diastolic 64–82; TEMP 97–98; O2SAT 69–97
[2024-01-15 06:31] LABS: HEMATOCRIT 37.7 % (36.0-47.0); HEMOGLOBIN 12.4 g/dl (12.0-15.5); MEAN CORPUSCULAR HGB CONC 32.9 g/dl (32.0-36.5); MEAN CORPUSCULAR VOLUME 97.2 fl (80.0-96.0); PLATELET COUNT, AUTOMATED 220 10^3/uL (150-450); RED BLOOD COUNT 3.88 10^6/uL (4.00-5.40); WHITE BLOOD COUNT 7.8 10^3/uL (4.0-10.0)
[2024-01-15 06:51] LABS: BLOOD UREA NITROGEN 16 MG/DL (9-23); CALCIUM LEVEL 9.4 MG/DL (8.5-10.1); CARBON DIOXIDE LEVEL 26 MMOL/L (20-31); CHLORIDE LEVEL 110 MMOL/L (98-107); CREATININE FOR GFR 0.66 MG/DL (0.55-1.30); GLOMERULAR FILTRATION RATE > 60.0 (>51); GLUCOSE, FASTING 247 MG/DL (60-100); MAGNESIUM LEVEL 1.9 MG/DL (1.8-2.4); POTASSIUM SERUM 4.3 MMOL/L (3.5-5.1); SODIUM LEVEL 141 MMOL/L (136-145)
[2024-01-15] MEDS: LevoFLOXacin 750 MG TABLET PO SCH (12:54)
[2024-01-15 15:24] LABS: HEMOGLOBIN A1c 7.3 % (4.0-6.0)
[2024-01-15] MEDS: metroNIDAZOLE (FLAGYL) 500MG TABLET PO SCH (21:11)
[2024-01-15] MEDS: LEVEMIR (INSULIN DETEMIR) 1 UNITS/0.01ML SC SCH (21:13)
[2024-01-16 00:03] VITALS: BP 121/69; TEMP 98.2; O2SAT 98
[2024-01-16 04:00] VITALS: BP 131/65; TEMP 98.7; O2SAT 95
[2024-01-16 06:43] LABS: HEMATOCRIT 36.5 % (36.0-47.0); HEMOGLOBIN 12.2 g/dl (12.0-15.5); MEAN CORPUSCULAR HEMOGLOBIN 32.3 pg (27.0-33.0); MEAN CORPUSCULAR HGB CONC 33.4 g/dl (32.0-36.5); MEAN CORPUSCULAR VOLUME 96.6 fl (80.0-96.0); PLATELET COUNT, AUTOMATED 228 10^3/uL (150-450); RED BLOOD COUNT 3.78 10^6/uL (4.00-5.40)
[2024-01-16 06:57] LABS: BLOOD UREA NITROGEN 18 MG/DL (9-23); CALCIUM LEVEL 9.3 MG/DL (8.5-10.1); CARBON DIOXIDE LEVEL 27 MMOL/L (20-31); CHLORIDE LEVEL 109 MMOL/L (98-107); GLOMERULAR FILTRATION RATE > 60.0 (>51); GLUCOSE, FASTING 237 MG/DL (60-100); MAGNESIUM LEVEL 1.8 MG/DL (1.8-2.4); POTASSIUM SERUM 4.1 MMOL/L (3.5-5.1); SODIUM LEVEL 141 MMOL/L (136-145)
[2024-01-16 08:00] VITALS: BP 140/84; TEMP 96.8; O2SAT 99
[2024-01-16] MEDS ORDERED: METR-265 PO (10:12)
[2024-01-16] MEDS ORDERED: LEVO1TAB40 PO (10:12)
== END 2024-01-16 11:00 | disposition home or self-care (01) | DRG 871 ==
LOC: M ED 10:35 → M ED INP 15:24 → M MS5PR 21:34
PROVIDERS: ADMIT Family Medicine; ATTEND Student in an Organized Health Care Education/Training Program
DX: A41.9 Sepsis, unspecified organism (principal); J18.9 Pneumonia, unspecified organism; F11.20 Opioid dependence, uncomplicated; Z68.41 Body mass index [BMI] 40.0-44.9, adult; E87.20 Acidosis, unspecified; M32.9 Systemic lupus erythematosus, unspecified; E66.9 Obesity, unspecified; K76.0 Fatty (change of) liver, not elsewhere classified; G89.29 Other chronic pain; M54.9 Dorsalgia, unspecified; F41.9 Anxiety disorder, unspecified; G47.33 Obstructive sleep apnea (adult) (pediatric); E11.9 Type 2 diabetes mellitus without complications; J45.909 Unspecified asthma, uncomplicated; Z98.84 Bariatric surgery status; Z87.01 Personal history of pneumonia (recurrent); Z91.018 Allergy to other foods; Z88.8 Allergy status to other drugs, medicaments and biological substances; Z86.16 Personal history of COVID-19

== ENCOUNTER → 2024-03-02 | Outpatient (CLI) | payer OTHER ==
[~2024-03-02] MED LIST changes: +DIAZ2TAB PO; -DOXY-323 PO; +DOXY-441 PO; +GABA-1172 PO; -GABA-282 PO; +METR-265 PO; +POLY510P14 PO; +QUET200T2 PO
== END ==
LOC: M RAD 15:24
PROVIDERS: ATTEND Internal Medicine Pulmonary Disease
DX: J06.9 Acute upper respiratory infection, unspecified (principal)

== ENCOUNTER → 2024-11-01 | Outpatient (CLI) | payer OTHER ==
[~2024-11-01] MED LIST changes: -ALIG4CAP PO; +ALIG4CAP3 PO; +ASPI81CH8 PO; +AZIT-12 PO; -BYDU2INJ7 SC; +CYAN100049 PO; -DRON2.5C11 PO; +DRON2.5C17 PO; +EXEN2AUT SC; +LIDO1ADH93 TD; -LIDO5DIS41 TD; +LIFI1DRO4 OU; +MUCI600T31 PO; +MYRB50TA PO; +NALO12.5 PO; +PREG-35 PO; -PREG100CA PO; +REFR0.1D OU; +ROSU20TA86 PO; +SEMA0.257 INJ; -XIID5DRO OU
== END ==
LOC: M WHC 16:16
PROVIDERS: ATTEND Internal Medicine
DX: Z12.31 Encounter for screening mammogram for malignant neoplasm of breast (principal)

== ENCOUNTER → 2025-01-31 | Outpatient (CLI) | payer OTHER | LOC: M RAD 17:10 | PROVIDERS: ATTEND Internal Medicine Pulmonary Disease | DX: R91.8 Other nonspecific abnormal finding of lung field (principal) ==